=== PATIENT | female | born 1945 | race Caucasian/White ===

== ENCOUNTER 2018-04-13 11:58 | Day surgery (SDC) | payer MEDICARE, SELFPAY ==
[2018-04-07 15:42] LABS: Hemoglobin A1c 6.1 % (4.2-6.3)
[2018-04-07 15:48] LABS: Anion Gap 7 (5-15); BUN 23 mg/dL (7-18); BUN/Creat Ratio 17.7 RATIO (10-20); Calcium,Total 9.8 mg/dL (8.5-10.1); Chloride 108 mmol/L (98-107); EST Glomerular Filtration Rate 43 mL/min (>60); Est Glom Filt Rate - Afr Amer 52 mL/min (>60); Glucose 101 mg/dL (74-106); Potassium 4.3 mmol/L (3.5-5.1); Sodium Level 142 mmol/L (136-145); Thyroid Stim Hormone (TSH) 1.18 uIU/mL (0.358-3.74)
[2018-04-13] VITALS (7 sets, daily range): BP systolic 153–178; BP diastolic 66–87; PULSE 47–72; RESP 15–18; TEMP 36.1–36.3; O2SAT 92–98; BMI 47.3
[2018-04-13 13:01] LABS: Bedside Glucose 108 mg/dL (70-110)
[2018-04-13] MEDS: Clindamycin 900 MG/50 ML BAG 75 MG IV (13:13)
--- NOTE | 2018-04-13 13:24 | DCINST_ITS ---
Discharge Diet: Light diet - advance as tolerated Discharge Activity: Return to Normal Activity, May Drive - when you are no longer taking narcotic pain medications., May Shower - with the bandage in place 1-2 days after surgery. Lifting Restrictions: 20 pounds for 8 weeks. Additional Activity Instructions:: Climbing stairs is fine, walking is encouraged. Sitting in bed may be uncomfortable. Sitting up using your lateral muscles (sitting up sideways) is usually more comfortable. Do not drive, work heavy equipment of sign legal documents for 24 hours. If your hernia repair was an ingunial repair, you may have scrotal swelling, an ice pack and/or athletic support can provide more comfort. Pain medications may cause nausea, you should typically eat light foods as you take your pain medications. Pain medications may also cause constipation. If you have difficulty with this, discuss with your doctor. Call your doctor if your incision/area has: Continuous Slow Oozing, Sudden Increased Bleeding, Increased Pain/ Swelling, Increased Redness, Foul Smelling Discharge Call your doctor if you observe: Fever of 101 or Higher Suture Line Care: Avoid Pulling/Pushing, Avoid Pinching/Bending Additional Dressing/Incision Instructions:: Leave the operative bandage on for 2 -3 days. When you remove the bandage, leave the steri-strips on place until your follow up appointment or they fall off. Allergies/Adverse Reactions: Allergies adhesive Allergy (Verified 04/07/18 08:32) Rash amoxicillin [Amoxicillin] Allergy (Verified 04/07/18 08:32) Rash ampicillin Allergy (Verified 04/07/18 08:32) Rash cephalexin monohydrate [From Keflex] Allergy (Verified 04/07/18 08:32) Rash Penicillins Allergy (Verified 04/07/18 08:32) Rash Sulfa (Sulfonamide Antibiotics) Allergy (Verified 04/07/18 08:32) Rash Medications to take at Discharge Aspirin [Aspirin, Baby] 81 mg PO QHS 05/10/14 Atenolol [Tenormin (beta alex)] 25 mg PO DAILY 05/10/14 Atorvastatin Calcium [Lipitor] 40 mg PO QHS 05/10/14 Calcium (Elemental) [Caltrate-600] 600 mg PO DAILY@0800 05/10/14 Fenofibrate [Tricor] 145 mg PO DAILY 05/10/14 Fluticasone 0.05% [Flonase Nasal [place]] 2 spray NASAL DAILY PRN 05/10/14 Fosinopril Sodium 40 mg PO DAILY 05/10/14 Levothyroxine [Synthroid] 112 mcg PO DAILY 05/10/14 Magnesium Oxide [Mag-Ox 400] 800 mg PO BID 05/10/14 Multivitamins,Therapeutic [Multivitamin] 1 tab PO DAILY 05/10/14 Nitroglycerin [Nitrostat] 0.4 mg SUBLINGUAL Q5M PRN 05/10/14 Oxybutynin Chloride [Ditropan Xl] 15 mg PO DAILY 05/10/14 Azelastine HCl 137 mcg NS PRN PRN 08/10/17 Meclizine HCl [Antivert] 25 mg PO TID PRN PRN #20 tablet 10/22/17 Metformin HCl 500 mg PO DAILY 04/07/18 Nystatin 100,000 unit PO PRN PRN 04/07/18 Oxycodone HCl/Acetaminophen [Percocet 5/325] 1 - 2 tab PO Q4H PRN PRN 4 Days # 30 tab 04/13/18 The following prescriptions were given: Oxycodone HCl/Acetaminophen [Percocet 5/325] 1 - 2 tab PO Q4H PRN PRN 4 Days # 30 tab PRN Reason: Pain Primary Care Physician: Earlene Rosario MD [Primary Care Provider] - Please Follow Up With: Livan Lieberman MD - [phone] When: Plan to have a follow up appointment in 7 days. Call to schedule.
--- NOTE | 2018-04-13 13:25 | OP.PCM_ITS ---
Problem List (1) Incisional hernia, without obstruction or gangrene Status: Acute Report of Operation Date of Procedure: 04/13/18 Pre-Operative Diagnosis: k43.2 incisional hernia without obstruction or gangrene Post-Operative Diagnosis: Same Surgery/Procedure Performed:: Incisional hernia repair with mesh Type of Anesthesia:: General Anesthesiologist: Stevo Yanez Description of Procedure: Patient was brought into the operating room. Placed in the supine position. Under excellent general endotracheal intubation the abdomen was sterilely prepped and draped in the usual fashion. Curvilinear incision was made around the umbilicus immediately identified a rather large hernia. I dissected this off of the umbilical area in the right side of the umbilicus this was from a previous laparoscopic incision. Once I delineated 360? around the defect itself I was able to reduce the defect back into its preperitoneal space. I grasped the good fascia with Abby's and created a preperitoneal window circumferentially around the fascia. I make sure that I had a good 3 cm in all directions. Once this was completed and I inspected the area I saw no bowel injury I had excellent hemostasis. I fashioned a large ventral X hernia patch into the wound. I circumferentially tacked it to the fascia with #1 Nurolon's. I injected local. I had good hemostasis. The wound was brought together with deep dermal stitches of 3-0 Vicryl in a running 4-0 Monocryl. Steri- Strips are applied cotton was applied sterile dressings were applied and the patient tolerated the procedure well. - Admit VTE Documentation VTE Present on Admission: No VTE Mechan Device Prophylaxis: SCD's VTE Pharm Prophylaxis ordered?: No Reason prophylaxis not ordered:: Treatment Not Indicated
[2018-04-13] MEDS: Bupivacaine Mpf 0.5% 30 ML VIAL (14:10)
[2018-04-13 14:30] LABS: Bedside Glucose 96 mg/dL (70-110)
[2018-04-13] MEDS: oxyCODONE 5 MG Tablet 10 MG PO (16:15)
== END 2018-04-13 17:46 | disposition home or self-care (01) ==
LOC: SDC 11:59 → AC 12:00
PROVIDERS: Family Provider Internal Medicine; PCP Internal Medicine; Visit Provider Surgery
PROC: (CPT 49560; principal; 2018-04-13 13:20)
DX: K43.2 Incisional hernia without obstruction or gangrene (principal); E11.9 Type 2 diabetes mellitus without complications; Z79.899 Other long term (current) drug therapy; I45.10 Unspecified right bundle-branch block; I10 Essential (primary) hypertension; Z95.5 Presence of coronary angioplasty implant and graft; Z87.891 Personal history of nicotine dependence; Z86.711 Personal history of pulmonary embolism; E78.00 Pure hypercholesterolemia, unspecified; Z79.82 Long term (current) use of aspirin; E03.9 Hypothyroidism, unspecified; I25.10 Atherosclerotic heart disease of native coronary artery without angina pectoris; E66.9 Obesity, unspecified; Z68.42 Body mass index [BMI] 45.0-49.9, adult
CPT/HCPCS: 49560; 49568; 36415; 80048; 82962; 83036; 84443; J7120; C1781

== ENCOUNTER 2018-05-04 15:28 | Emergency (ER) | payer MEDICARE, SELFPAY ==
--- NOTE | 2018-05-04 15:28 | DT_ITS ---
This patient was seen during an EMR downtime May 04, 2018 - May 11, 2018. This patient may have a combination of paper and electronic documentation or all paper documentation. All documentation is viewable within the e-chart portion of [facility] for each patient visit.
--- NOTE | 2018-05-04 21:20 | CT_ITS ---
STUDY: CTA CHEST REASON FOR EXAM: Female, 73 years old. Dyspnea. Recent surgery. RADIATION DOSAGE (If Supplied By Facility): CTDIvol = ( 16.61 ) mGy, DLP = ( 775.68 ) mGycm TECHNIQUE: The examination was performed with the intravenous administration of 100ml ml of Isovue 370 contrast material. Post-processing of the angiographic images was performed, with multiplanar reformation and 3D reconstruction. Individualized dose optimization techniques were used for this CT. COMPARISON: None. FINDINGS: Bilateral moderate pulmonary emboli burden is noted within the bilateral upper and lower lobe second order branch vessels. No evidence of saddle component. No evidence of right heart strain. Normal thoracic aorta and visualized great vessels. There is no demonstrated aortic dissection. Normal heart and pericardium. Normal mediastinum. Normal hilar regions. Normal visualized trachea and bronchi. The lungs are well expanded. Normal pulmonary parenchyma. Normal pleura. Normal chest wall structures. There are degenerative changes of thoracic spine. Normal visualized upper abdomen. CT/CTA Chest W/WO Contrast IMPRESSION: Moderate bilateral pulmonary emboli burden in the upper and lower lobe second order branch vessels. No evidence of right heart strain. No evidence of saddle emboli. Apparently, there has been a computer malfunction for several days at this institution. This study was performed on May 04. There are findings the results as above. Patient has been taking care of appropriately. N.B. : The above information has been verbally conveyed by Da Yeh DO to Dr Mcconnell, Covering Physician, on 05/09/2018 18:49:04 (ET). Electronically Signed: Da Yeh DO at 18:49 EDT Tel , Service support , N.B. : The above information has been verbally conveyed by Da Yeh DO to Dr Mcconnell, Covering Physician, on 05/09/2018 18:49:04 (ET).
[2018-05-07 12:15] LABS: BUN 20 mg/dL (7-18); BUN/Creat Ratio 16.8 RATIO (10-20); Chloride 108 mmol/L (98-107); Creatinine, Serum 1.19 mg/dL (0.55-1.02); EST Glomerular Filtration Rate 48 mL/min (>60); Est Glom Filt Rate - Afr Amer 58 mL/min (>60); Glucose 97 mg/dL (74-106); Potassium 4.1 mmol/L (3.5-5.1); Sodium Level 144 mmol/L (136-145)
[2018-05-07 12:16] LABS: Anion Gap 9 (5-15)
[2018-05-07 17:32] LABS: International Normalized Ratio 1.2; Partial Thromboplast Time 30.6 Seconds (24.1-36.2); Prothrombin Time (Protime)PT. 14.7 SECONDS (11.7-14.9)
[2018-05-08 10:54] LABS: Hematocrit 42.1 % (37-47); Hemoglobin 13.2 g/dl (12.0-15.0); Mean Corp Hgb Conc 31.4 g/gl (32-36); Mean Corpuscular Hgb 27.6 pg (27.0-32.0); Mean Corpuscular Volume 88.1 fL (81-99); Mean Platelet Vol. 10.9 fl (6.2-12.0); Neutrophil % 64.2 % (47-70); POSITIVE COUNT NO; POSITIVE DIFFERENTIAL NO; POSITIVE MORPHOLOGY NO; Platelet Count 323 K/mm3 (150-450); RBC Distribution Width CV 13.5 % (11.6-14.6); RBC Distribution Width SD 42.8 fl (35.1-43.9); Red Blood Count 4.78 M/mm3 (4.2-5.4); White Blood Count 10.3 K/mm3 (4.4-11.0)
[2018-05-08 10:55] LABS: Absolute Lymphocyte Count 2.57 X10^3/ul (0.83-4.51); Absolute Neutrophil Count 6.6 X10^3/uL (2.0-7.7); Basophil# 0.05 X10^3/uL; Basophil% 0.5 % (0-1); Eosinophil# 0.25 X10^3/uL; Eosinophils% 2.4 % (0-5); Lymphocyte # 2.57 X10^3/ul (4.0); Monocyte# 0.77 X10^3/uL; Monocyte% 7.5 % (0-10); Neutrophil # 6.62 X10^3/uL (2.7-7.7)
== END 2018-05-04 23:05 | disposition home or self-care (01) ==
LOC: ED 05-06 14:38
PROVIDERS: Emergency Provider Emergency Medicine; Family Provider Internal Medicine; PCP Internal Medicine
DX: I26.99 Other pulmonary embolism without acute cor pulmonale (principal); I25.10 Atherosclerotic heart disease of native coronary artery without angina pectoris; I10 Essential (primary) hypertension; E11.9 Type 2 diabetes mellitus without complications; E78.00 Pure hypercholesterolemia, unspecified; E66.9 Obesity, unspecified; E03.9 Hypothyroidism, unspecified; Z86.711 Personal history of pulmonary embolism; Z79.84 Long term (current) use of oral hypoglycemic drugs; Z79.899 Other long term (current) drug therapy
CPT/HCPCS: 36415; 71275; 80048; 85025; 85610; 85730; 96360; 96372; 99284; J7030; Q9967; A4216

== ENCOUNTER 2018-09-14 07:49 | Day surgery (SDC) | payer MEDICARE, OTHER, SELFPAY ==
[2018-09-14 08:16] LABS: Prothrombin Time Fingerstick 14.5 SEC (11.9-14.4)
[2018-09-14 08:17] VITALS: BP 138/62; PULSE 56; RESP 18; TEMP 36.7; O2SAT 99; BMI 47.9
[2018-09-14 08:26] LABS: Bedside Glucose 105 mg/dL (70-110)
--- NOTE | 2018-09-14 09:49 | PCM.IMDPSTOP ---
Immediate Post-Op Note Date of Procedure: 09/14/18 Primary Surgeon/Physician: Robert Marte aviation medicine specialist: none Pre-Operative Diagnosis: A1 stenosing tenosynovitis RMF Post-Operative Diagnosis: same Surgery/Procedure Performed:: Release A1 kameron RMF Description of Surgical Findings:: see op note Estimated Blood Loss: minimal Specimen's removed: none Type of Anesthesia:: Block,Karthikeyan ASA Class: ASA3 Severe Disease - Admit VTE Documentation VTE Present on Admission: No VTE Mechan Device Prophylaxis: SCD's VTE Pharm Prophylaxis ordered?: No Reason prophylaxis not ordered:: Treatment Not Indicated
[2018-09-14 09:55] VITALS: BP 131/66; BP 138/62; PULSE 58; RESP 16; TEMP 36.3; O2SAT 94
[2018-09-14 10:00] VITALS: BP 124/67; BP 138/62; PULSE 55; RESP 16; O2SAT 96
--- NOTE | 2018-09-14 10:00 | OP.PCM_ITS ---
Operative Report Date of Procedure: 09/14/18 OPERATION: Release A1 kameron right middle finger Pre-op Dx: RMF triggering Post-op Dx: same Surgeon: Dr. Marte Anesthesia: [place] block Anesthesiologist: Dr Yanez EBL: Min Specimen: none Complications: none PROCEDURE: With appropriate informed consent and the right middle finger marked, the patient was taken to OR 4. Karthikeyan block anesthesia was administered per Dr. Yanez. The right upper extremity was prepared and draped sterilely. Subsequently, a 15 blade scalpel was used to make a transverse incision over the A 1 kameron of the RMF. Careful scissor dissection was taken down through the palmar fascia to the annular kameron. Retractors were placed radial and ulnar to protect neurovascular structures. The A1 kameron was divided umder direct visualization using a scalpel and scissors. I was then able to take the finger through a full ROM without triggering or locking. The wound was then copiously irrigated and closed with 3 interrupted sutures 0f 4-0 nylon. A sterile dressing was applied and the tourniquet was released. Excellent blood flow returned to the RUE and the patient was taken to PACU in stable and satisfactory condition.
[2018-09-14 10:05] VITALS: BP 125/71; BP 138/62; PULSE 54; RESP 16; O2SAT 98
[2018-09-14 10:10] VITALS: BP 126/63; BP 138/62; PULSE 56; RESP 16; TEMP 36.4; O2SAT 96
[2018-09-14 10:25] VITALS: BP 138/62
== END 2018-09-14 11:12 | disposition home or self-care (01) ==
LOC: SDC 07:49 → AC 07:51
PROVIDERS: Family Provider Internal Medicine; PCP Internal Medicine; Referring Provider Orthopaedic Surgery; Visit Provider Orthopaedic Surgery
PROC: (CPT 26055; principal; 2018-09-14 09:20)
DX: M65.331 Trigger finger, right middle finger (principal); E11.9 Type 2 diabetes mellitus without complications; K21.9 Gastro-esophageal reflux disease without esophagitis; Z86.711 Personal history of pulmonary embolism; E78.00 Pure hypercholesterolemia, unspecified; Z79.899 Other long term (current) drug therapy; Z79.01 Long term (current) use of 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s; Z79.82 Long term (current) use of aspirin; Z79.84 Long term (current) use of oral hypoglycemic drugs; I10 Essential (primary) hypertension; Z87.891 Personal history of nicotine dependence; I25.10 Atherosclerotic heart disease of native coronary artery without angina pectoris; Z95.5 Presence of coronary angioplasty implant and graft; Z86.718 Personal history of other venous thrombosis and embolism; M19.90 Unspecified osteoarthritis, unspecified site; E66.9 Obesity, unspecified; Z68.42 Body mass index [BMI] 45.0-49.9, adult
CPT/HCPCS: 01810; 26055; 36416; 82962; 85610; J7120; A4216

== ENCOUNTER → 2018-10-02 10:43 | Outpatient (CLI) | payer MEDICARE, OTHER, SELFPAY ==
[2018-10-02 13:37] LABS: International Normalized Ratio 1.9; Prothrombin Time (Protime)PT. 21.6 SECONDS (11.7-14.9)
== END ==
PROVIDERS: Family Provider Internal Medicine; PCP Internal Medicine; Referring Provider Internal Medicine; Visit Provider Internal Medicine
DX: I26.99 Other pulmonary embolism without acute cor pulmonale (principal); Z79.01 Long term (current) use of 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s
CPT/HCPCS: 85610

== ENCOUNTER → 2019-10-15 10:49 | Outpatient (CLI) | payer MEDICARE, OTHER, SELFPAY ==
[2019-09-14 14:56] VITALS: BMI 46.7
--- NOTE | 2019-10-15 10:52 | ECHOD_ITS ---
Reason For Study: CAD/ASHD Procedure This was a 2D Doppler, Color Flow transthoracic echocardiogram. The study was technically difficult. Due to body habitus. Exam performed in department. Left Ventricle Normal size and thickness. The estimated ejection fraction is 65 %. Stage 1 diastolic dysfunction. No regional wall motion abnormalities noted. Right Ventricle Normal size and thickness. Normal systolic function. Atria Normal left atrium. Normal right atrium. Normal atrial septum. Mitral Valve The mitral valve is structurally normal. No prolapse or stenosis seen. Tricuspid Valve Normal tricuspid valve. Trivial tricuspid valve insufficiency. Right ventricular systolic pressure estimated to be 27 mmHg. Aortic Valve Normal aortic valve. Trisinus/trileaflet aortic valve. Pulmonic Valve The pulmonic valve is not well visualized. Great Vessels Normal aortic root. Normal arch. Normal inferior vena cava. Inferior vena cava collapse with sniff. Pericardium/Pleural No pericardial effusion. MMode/2D Measurements & Calculations LVIDd: 4.7 cm IVSd: 1.2 cm Ao root diam: 2.6 cm LVIDs: 3.4 cm LVPWd: 1.2 cm RVDd: 3.1 cm FS: 28.6 % LAV(MOD-bp): 58.1 ml LA A4 area: 20.0 cm2 LA dimension(2D): 4.3 cm LAV(MOD-bp) Indexed: 26.1 ml/m2 LAV(MOD-sp2): 58.4 ml LAV(MOD-sp4): 58.4 ml RA A4 area: 17.7 cm2 Time Measurements MV dec time: 0.20 sec Doppler Measurements & Calculations MV E max simone: 93.5 cm/sec Lat Peak E' Simone: 8.6 cm/sec Med Peak E' Simone: 8.5 cm/sec MV A max simone: 102.5 cm/sec E/E' lat: 10.9 E/E' med: 11.0 MV E/A: 0.91 Ao V2 max: 143.0 cm/sec LV V1 max: 107.1 cm/sec PA V2 max: 94.2 cm/sec Ao max P.2 mmHg LV V1 max P.6 mmHg TR max simone: 234.0 cm/sec TR max P.9 mmHg Interpretation Summary The estimated ejection fraction is 65 %. Stage 1 diastolic dysfunction. Trivial tricuspid valve insufficiency. Right ventricular systolic pressure estimated to be 27 mmHg. Compared to echo report dated 08/11/2017, no appreciable changes noted. Ordering Physician: Livan Jha Referring Physician: Earlene Rosario Performed By: Ching Gallego RDCS, RVT
== END ==
PROVIDERS: Family Provider Internal Medicine; PCP Internal Medicine; Referring Provider Internal Medicine Cardiovascular Disease; Visit Provider Internal Medicine Cardiovascular Disease
DX: I26.99 Other pulmonary embolism without acute cor pulmonale (principal); I25.10 Atherosclerotic heart disease of native coronary artery without angina pectoris; Z95.5 Presence of coronary angioplasty implant and graft; E78.2 Mixed hyperlipidemia; I10 Essential (primary) hypertension
CPT/HCPCS: 93306

== ENCOUNTER → 2019-10-18 09:32 | Outpatient (CLI) | payer MEDICARE, OTHER, SELFPAY ==
[2019-09-14 14:56] VITALS: BMI 46.7
[2019-10-06 09:23] LABS: AST(SGOT) 33 U/L (15-37); Alanine Aminotransfer ALT/SGPT 30 U/L (13-56); Albumin, Serum 3.8 g/dL (3.2-5.0); Alkaline Phosphatase 59 U/L (45-117); Bilirubin, Direct 0.14 mg/dL (0.00-0.30); Cholesterol 198 mg/dL (200); Globulin 3.7 g/dL (2.2-4.2); High Density Lipoprotein 57 mg/dL; Protein, Total 7.5 g/dL (6.4-8.2); Triglycerides 141 mg/dL; Very Low Density Lipoprotein 28 mg/dL (5-40)
--- NOTE | 2019-10-18 09:33 | STEWCON_ITS ---
Reason For Study: CAD Stress Results Protocol: Modified Compa Protocol Maximum Predicted HR: 148 bpm Target HR: 126 bpm % Maximum Predicted HR: 87 % DurationHeart Rate Stage (mm:ss) (bpm) BP Comment Baseline 57 130/72No Chest Pain; Diluted Definity 4 ML Given Modified Compa Protocol Stage 0 3:00 90 140/64No Chest Pain Modified Compa Protocol Stage 1/2 3:00 99 158/70No Chest Pain; Mild Dyspnea Modified Compa Protocol Stage 1 3:00 112 172/74No Chest Pain; Mild Dyspnea Modified Compa Protocol Stage 2 1:01 129 / No Chest Pain; Mild to Moderate Dyspnea Recovery 59 138/70No Chest Pain; No Dyspnea Stress Duration: 10:01 mm:ss Maximum Stress HR: 129 bpm METS: 7 Baseline Echocardiogram Findings The estimated ejection fraction is 65 %. Stress Echo Wall motion Data Resting WM Intermediate WM Stress WM Resting Wall Motion Wall Motion Stress No regional wall motion Lateral-Basal: Mildly abnormalities noted. hypokinetic. EKG Data The baseline ECG displays normal sinus rhythm. The stress ECG displays diffuse abnormal ST segments. No clinical angina was noted. Interpretation Summary The estimated ejection fraction is 65 %. Lateral-Basal: Mildly hypokinetic Abnormal, adequate, modified Compa treadmill echocardiogram. Positive for ischemia by EKG and echocardiographic criteria. The patient developed [address] segment depression at 6 minutes 50 seconds into exercise which progressed to 2 [address] segment depression at peak exercise. These changes persisted until 5 minutes 50 seconds into recovery. In addition she developed subtle inferolateral hypokinesis seen in one view. No anginal symptoms noted. Rare PACs noted. Appropriate blood pressure response to exercise. Average exercise capacity for age. Patient will be referred for cardiac catheterization. The study was technically difficult. Contrast injection was performed. Ordering Physician: Livan Jha Referring Physician: Earlene Rosario Performed By: Maricarmen Banerjee, RDCS, RVT
--- NOTE | 2019-10-18 10:50 | RAD_ITS ---
STUDY: X-RAY CHEST REASON FOR EXAM: Female, 74 years old. Abnormal stress test. Shortness of breath during stress test. TECHNIQUE: PA and lateral views of the chest. COMPARISON: Comparison is made with prior examination of August 10, 2017. FINDINGS: Scattered calcified granulomas. No acute abnormality is seen. There is no demonstrated pleural abnormality. There is mild cardiac enlargement. Normal mediastinum and chen. Normal visualized pulmonary arteries. There is atherosclerotic calcification of the aortic arch with tortuosity. There are diffuse degenerative changes of the visualized thoracic spine. Normal visualized ribs, clavicles, and shoulders. There is no demonstrated abnormality of the visualized soft tissue structures of the upper abdomen. RAD/Chest PA and Lateral IMPRESSION: Mild cardiomegaly. The lungs are clear. Electronically Signed: Paresh Donovan, at 11:12 EST , Service support ,
[2019-10-18 11:40] LABS: Hematocrit 41.2 % (37-47); Hemoglobin 12.9 g/dL (12.0-15.0); Mean Corp Hgb Conc 31.3 g/dL (32-36); Mean Corpuscular Hgb 28.1 pg (27.0-32.0); Mean Corpuscular Volume 89.8 fL (81-99); Mean Platelet Vol. 11.2 fl (6.2-12.0); Platelet Count 269 K/mm3 (150-450); RBC Distribution Width CV 13.6 % (11.6-14.6); RBC Distribution Width SD 44.2 fl (35.1-43.9); Red Blood Count 4.59 M/mm3 (4.2-5.4); White Blood Count 8.5 K/mm3 (4.4-11.0)
[2019-10-18 11:44] LABS: International Normalized Ratio 1.7; Prothrombin Time (Protime)PT. 20.1 SECONDS (11.7-14.9)
[2019-10-18 11:45] LABS: Partial Thromboplast Time 35.2 Seconds (24.1-36.2)
[2019-10-18 12:02] LABS: Anion Gap 8 (5-15); BUN 22 mg/dL (7-18); BUN/Creat Ratio 19.1 RATIO (10-20); Calcium,Total 9.6 mg/dL (8.5-10.1); Chloride 107 mmol/L (98-107); Creatinine, Serum 1.15 mg/dL (0.55-1.02); EST Glomerular Filtration Rate 49 mL/min (>60); Est Glom Filt Rate - Afr Amer 60 mL/min (>60); Glucose 98 mg/dL (74-106); Potassium 4.6 mmol/L (3.5-5.1); Sodium Level 139 mmol/L (136-145)
== END ==
PROVIDERS: Family Provider Internal Medicine; PCP Internal Medicine; Referring Provider Internal Medicine Cardiovascular Disease; Visit Provider Internal Medicine Cardiovascular Disease
DX: R94.39 Abnormal result of other cardiovascular function study (principal); Z79.01 Long term (current) use of 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s; E78.00 Pure hypercholesterolemia, unspecified; I25.10 Atherosclerotic heart disease of native coronary artery without angina pectoris
CPT/HCPCS: 36415; 71046; 80048; 80061; 80076; 85027; 85610; 85730; 93017; 93350; Q9957; A4216; C8928

== ENCOUNTER 2019-10-25 08:00 | Day surgery (SDC) | payer MEDICARE, OTHER, SELFPAY ==
--- NOTE | 2019-09-14 03:21 | HP_ITS ---
HPI HPI History of Present Illness Surgical H&P: Yes Details: Mrs. Jovel is a very pleasant 74-year-old female, previous patient of Dr. Gonzalez, with a history of hypertension, pulmonary embolism in August 2017, baseline right bundle branch block, coronary artery disease status post angioplasty and stenting on 10/06/2009, hypertension and hyperlipidemia as well as type 2 diabetes and obesity. Patient underwent successful angioplasty and stenting of the LAD at [facility] on 10/06/2009 receiving a 2.75 x 18 Promus stent as well as a 2.5X 12 Promus stent in the midportion of the LAD by Dr. Knight. At that time her left circumflex had an eccentric 50 to 70% stenosis in its mid segment and his RCA was dominant with no significant stenosis. No additional stenting was performed at that time. On 08/11/2017 she underwent a 2D echo with Doppler which showed normal LV size with an EF of 60% and an RVSP of 36 mmHg. Patient was referred for cardiac maintenance. Patient does not recall any symptoms prior to her catheterization about 10 years ago, but has had a history of pulmonary emboli first in 2015, placed on Coumadin, then removed from Coumadin, had another pulmonary embolism in 2016 and is now been on Coumadin ever since. She denies any previous atrial fibrillation. From a cardiac standpoint she denies any chest pain, angina, shortness of breath or dyspnea on exertion. She is taking and tolerating her medicines well. She is no longer on Plavix. In our office today her blood pressure is 156/70 and pulse is 64 and regular. Her physical exam demonstrates morbid obesity, regular rate and rhythm, normal S1/S2, no S3 or S4. Lipids are pending. EKG dated 05/04/2018 shows normal sinus rhythm, incomplete right bundle branch block, no evidence of previous myocardial infarction. Repeat EKG 09/14/2019 shows normal sinus rhythm, right bundle branch block, no acute changes, no previous myocardial infarction noted. 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 Required: No Accompanied by: Self Allergies adhesive Allergy (Verified 09/14/19 14:56) Rash amoxicillin [Amoxicillin] Allergy (Verified 09/14/19 14:56) Rash ampicillin Allergy (Verified 09/14/19 14:56) Rash cephalexin monohydrate [From Keflex] Allergy (Verified 09/14/19 14:56) Rash Penicillins Allergy (Verified 09/14/19 14:56) Rash Sulfa (Sulfonamide Antibiotics) Allergy (Verified 09/14/19 14:56) Rash Medications Aspirin [Aspirin, Baby] 81 mg PO QHS 05/10/14 [History Confirmed 09/14/19] Atenolol [Tenormin (beta alex)] 25 mg PO DAILY 05/10/14 [History Confirmed 09/14/19] Atorvastatin Calcium [Lipitor] 40 mg PO QHS 05/10/14 [History Confirmed 09/14/19] Fluticasone 0.05% [Flonase Nasal [place]] 2 spray NASAL DAILY PRN 05/10/14 [History Confirmed 09/14/19] Fosinopril Sodium 40 mg PO DAILY 05/10/14 [History Confirmed 09/14/19] Levothyroxine [Synthroid] 112 mcg PO DAILY 05/10/14 [History Confirmed 09/14/19] Magnesium Oxide [Mag-Ox 400] 400 mg PO BID 05/10/14 [History Confirmed 09/14/19] Multivitamins,Therapeutic [Multivitamin] 1 tab PO DAILY 05/10/14 [History Confirmed 09/14/19] Nitroglycerin (INPATIENT USE) [Nitrostat] 0.4 mg SUBLINGUAL Q5M PRN 05/10/14 [History Confirmed 09/14/19] Oxybutynin Chloride [Ditropan Xl] 15 mg PO DAILY 05/10/14 [History Confirmed 09/14/19] Azelastine HCl 137 mcg NS PRN PRN 08/10/17 [History Confirmed 09/14/19] Meclizine HCl [Antivert] 25 mg PO TID PRN PRN #20 tab 10/22/17 [Rx Confirmed 09/14/19] Metformin HCl 500 mg PO DAILY 04/07/18 [History Confirmed 09/14/19] Warfarin [Coumadin ([facility])] 5 mg PO DAILY 09/08/18 [History Confirmed 09/14/19] fenofibrate 160 mg tablet 160 mg PO DAILY 09/14/19 [History Confirmed 09/14/19] hydrocortisone 2.5 % topical cream 1 applic TOPICAL BID 09/14/19 [History Confirmed 09/14/19] [facility] Medical History Pulmonary embolism (Acute ~08/2017) RBBB (right bundle branch block) (Acute) Hypothyroidism (Chronic) GERD (gastroesophageal reflux disease) (Chronic) Presence 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 (Chronic ~10/06/09) Atherosclerotic heart disease of zuni coronary artery without angina pectoris (Chronic) Mixed hyperlipidemia (Chronic) Essential hypertension (Chronic) Obesity (Chronic) DM2 (diabetes mellitus, type 2) (Chronic) History of gastric ulcer (Acute) History of pulmonary embolism (Acute ~08/2017) Incisional hernia, without obstruction or gangrene (Acute) Surgical History History of appendectomy (Resolved) Presence of coronary angioplasty implant and graft (Chronic ~10/06/09) H/O hernia repair (Resolved) History of heart artery stent (Resolved) S/P cardiac catheterization (Resolved) S/P carpal tunnel release (Resolved) S/P colonoscopy (Resolved ~05/2013) S/P hysterectomy (Resolved) S/P tonsillectomy (Resolved) S/P trigger finger release (Resolved) Family History Father CAD (coronary artery disease) Mother CVA (cerebral vascular accident) Hypertension Social History (Updated 09/14/19 @ 15:22 by Livan Jha MD) Smoking Status: Former smoker how long ago did patient quit smokin yrs alcohol intake: current details: rare substance use type: does not use caffeine: No ROS Const Const: Negative for fatigue, weakness, frequent falls, excessive sweating, weight gain or weight loss Eyes Eyes: Negative for transient loss of vision, blurry vision or change in vision ENT ENT: Negative for dizziness or balance problems Cardio Chest Pain: No Palpitations: No Edema: None Muscle aches with walking: None Resp Respiratory: Negative for SOB with activity or SOB at rest GI GI: Negative vomiting or vomiting blood/hematemesis : Negative for hematuria Musc Musc: Negative for muscle aches/ myalgia, muscle weakness, joint pain or balance problems Skin Skin: Negative non-healing lesions or rash Neuro Neuro: Negative for dizziness, lightheadedness, orthostatic symptoms, frequent falls, weakness or blurry vision Mario Alberto Hematologic/Lymphatic: Negative for easy bleeding Endo Endo: Negative for fatigue or excessive sweating Psych Psych: Negative for anxiety or depression Allergy Allergy/Immunology: Negative for hives, Negative for rash Cardiology Exam Const Appearance: cooperative, healthy appearing and no acute distress Nutritional Appearance: well nourished Orientation: alert, oriented x3 and oriented to person Head Head: normal to inspection, normocephalic and atraumatic Nose: external nose normal Face and Sinus: face symmetric Mouth: oral mucosae normal Eyes General: appearance normal, both eyes and all related structures Eyelids: eyelids normal Conjunctivae: conjunctivae normal Pupils: PERRL and normal by confrontation EOM: EOM intact bilaterally Neck Neck: normal visual inspection and full ROM Carotids: normal carotid upstroke Chest Chest inspection: normal inspection of the chest Auscultation: Bilateral: Clear to Auscultation Cardio Palpation: normal PMI Rate: regular rate Rhythm: regular rhythm Heart sounds: S1 normal and S2 normal GI GI: normal to inspection, no hepatosplenomegaly and bowel sounds present Neuro General: alert, awake, oriented x3, CN's II-XI intact bilaterally and moves all extremities Skin Skin: no rashes or lesions noted Extremities Pulses: Normal: Right Femoral Pulse, Left Femoral Pulse, Right Dorsalis Pedis Pulse, Left Dorsalis Pedis Pulse, Right Posterior Tibial Pulse, Left Posterior Tibial Pulse, Right Radial Pulse, Left Radial Pulse Lower Extremity Edema: None: Bilateral Psych Psychological: normal affect Assessment & Plan 1. Atherosclerotic heart disease of zuni coronary artery without angina pectoris I25.10 Plan 1. Coronary artery disease: Patient had no overt symptoms prior to her angioplasty in 2008, and denies any chest pain or shortness of breath at this time. She has a remaining 70% left circumflex stenosis which was not addressed at that time. Given her lack of symptoms prior to her angioplasty, diabetes, and the fact that her angioplasty was 10 years ago, I recommend that she undergo a repeat modified Compa treadmill echocardiogram to evaluate for either anterior or inferior lateral ischemia. If this is grossly abnormal for ischemia, she may require repeat catheterization with bridging with Lovenox given her history of pulmonary embolism x2. If it is negative for ischemia, will continue baby aspirin, atenolol, fosinopril. In addition we will obtain a 2D echo with Doppler to monitor her LV function and more importantly her pulmonary pressures given her history of pulmonary emboli. Orders Orders: 12 Lead EKG performed by [facility] Today Echo Complete Today Stress Test Echo w/o Contrast Today 2. Mixed hyperlipidemia E78.2 Plan 2. Hyperlipidemia: We will obtain a fasting lipid profile, and aggressively control her LDL cholesterol. Given her risk factors her LDL should be less than 70. Continue atorvastatin and fenofibrate. Orders Orders: Echo Complete Today Stress Test Echo w/o Contrast Today 3. Pulmonary embolism I26.99 Plan 3. Pulmonary embolism: The patient has had 2 pulmonary emboli in the past and requires Coumadin therapy going forward. Continue Coumadin therapy. Should the patient require catheterization she will require bridging with subcu Lovenox full dose. 4. Return office in 6 months. Orders Orders: Echo Complete Today Stress Test Echo w/o Contrast Today Plan Detail Other Orders Orders: 12 Lead EKG performed by BMS Today Z95.5 Lipid Profile 1 Week E78.00 Liver Profile 1 Week E78.00 Echo Complete Today I10, Z95.5 Stress Test Echo w/o Contrast Today Z95.5 Follow Up +6M (Abhijeet) Coding Level of Care Code Off vis,new,level 4 Diagnoses Atherosclerotic heart disease of zuni coronary artery without angina pectoris I25.10 Mixed hyperlipidemia E78.2 Pulmonary embolism I26.99 Coding Level of Care Code Off vis,new,level 4 Diagnoses Atherosclerotic heart disease of zuni coronary artery without angina pectoris I25.10 Mixed hyperlipidemia E78.2 Pulmonary embolism I26.99 Supplemental Info Supplemental Information Labs LDL Cholesterol 109 mg/dL (0-130) 06/04/16 HDL Cholesterol 48 mg/dL (40-) 06/04/16 Triglycerides 115 mg/dL (-199) 06/04/16 VLDL Cholesterol 23 mg/dL (5-40) 06/04/16 Diagnostics Electrocardiogram 10/21/17 Chest X-Ray 08/10/17 09/14/19 9022 <Electronically signed by Livan Jha MD> Date _ Livan Jha MD
[2019-09-14 14:56] VITALS: BMI 46.7
[2019-10-19 11:43] VITALS: BMI 46.7
[2019-10-25] VITALS (19 sets, daily range): BP systolic 90–161; BP diastolic 43–90; PULSE 39–60; RESP 11–20; TEMP 36.6–37; O2SAT 96–100; BMI 47.2; BMI 46.7
--- NOTE | 2019-10-25 07:39 | PCM.HP.BLA ---
History and Physical Date of Admission: 10/25/19 History of Present Illness Mrs. Jovel is a very pleasant 74-year-old female, previous patient of Dr. Gonzalez, with a history of hypertension, pulmonary embolism in August 2017, baseline right bundle branch block, coronary artery disease status post angioplasty and stenting on 10/06/2009, hypertension, and hyperlipidemia as well as type 2 diabetes and obesity. Patient underwent successful angioplasty and stenting of the LAD at [facility] on 10/06/2009 receiving a 2.75 x 18 Promus stent as well as a 2.5X 12 Promus stent in the midportion of the LAD by Dr. Knight. At that time her left circumflex had an eccentric 50 to 70% stenosis in its mid segment and his RCA was dominant with no significant stenosis. No additional stenting was performed at that time. On 08/11/2017, she underwent a 2D echo with Doppler which showed normal LV size with an EF of 60% and an RVSP of 36 mmHg. Patient was referred for cardiac maintenance. Patient does not recall any symptoms prior to her catheterization about 10 years ago, but has had a history of pulmonary emboli first in 2015, placed on Coumadin, then removed from Coumadin, had another pulmonary embolism in 2016 and is now been on Coumadin ever since. She denies any previous atrial fibrillation. On 10/18/2019, she underwent a stress echocardiogram for coronary artery disease surveillance. This was considered to be an abnormal, adequate, modified Compa treadmill echocardiogram positive for ischemia by ECG and echocardiographic criteria. Her estimate ejection fraction was noted to be 65%. She denies chest, arm, jaw, or neck discomfort. Her exercise tolerance is stable. She denies symptoms of CHF, palpitations, lightheadedness, dizziness, near syncope, or syncopal episodes. She denies edema or claudication issues. She denies orthopnea, PND, fever, chills, blood in urine, blood in stool, myalgia, or unexplainable fatigue. 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 Accompanied by: Self Allergies adhesive Allergy (Verified 09/14/19 14:56) Rash amoxicillin [Amoxicillin] Allergy (Verified 09/14/19 14:56) Rash ampicillin Allergy (Verified 09/14/19 14:56) Rash cephalexin monohydrate [From Keflex] Allergy (Verified 09/14/19 14:56) Rash Penicillins Allergy (Verified 09/14/19 14:56) Rash Sulfa (Sulfonamide Antibiotics) Allergy (Verified 09/14/19 14:56) Rash Medications: See EMR for further details Aspirin [Aspirin, Baby] 81 mg PO QHS 05/10/14 [History Confirmed 09/14/19] Atenolol [Tenormin (beta alex)] 25 mg PO DAILY 05/10/14 [History Confirmed 09/14/19] Atorvastatin Calcium [Lipitor] 40 mg PO QHS 05/10/14 [History Confirmed 09/14/19] Fluticasone 0.05% [Flonase Nasal [place]] 2 spray NASAL DAILY PRN 05/10/14 [History Confirmed 09/14/19] Fosinopril Sodium 40 mg PO DAILY 05/10/14 [History Confirmed 09/14/19] Levothyroxine [Synthroid] 112 mcg PO DAILY 05/10/14 [History Confirmed 09/14/19] Magnesium Oxide [Mag-Ox 400] 400 mg PO BID 05/10/14 [History Confirmed 09/14/19] Multivitamins,Therapeutic [Multivitamin] 1 tab PO DAILY 05/10/14 [History Confirmed 09/14/19] Nitroglycerin (INPATIENT USE) [Nitrostat] 0.4 mg SUBLINGUAL Q5M PRN 05/10/14 [History Confirmed 09/14/19] Oxybutynin Chloride [Ditropan Xl] 15 mg PO DAILY 05/10/14 [History Confirmed 09/14/19] Azelastine HCl 137 mcg NS PRN PRN 08/10/17 [History Confirmed 09/14/19] Meclizine HCl [Antivert] 25 mg PO TID PRN PRN #20 tab 10/22/17 [Rx Confirmed 09/14/19] Metformin HCl 500 mg PO DAILY 04/07/18 [History Confirmed 09/14/19] Warfarin [Coumadin ([facility]KC)] 5 mg PO DAILY 09/08/18 [History Confirmed 09/14/19] fenofibrate 160 mg tablet 160 mg PO DAILY 09/14/19 [History Confirmed 09/14/19] hydrocortisone 2.5 % topical cream 1 applic TOPICAL BID 09/14/19 [History Confirmed 09/14/19] [facility] Medical History Pulmonary embolism (Acute ~08/2017) RBBB (right bundle branch block) (Acute) Hypothyroidism (Chronic) GERD (gastroesophageal reflux disease) (Chronic) Presence 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 (Chronic ~10/06/09) Atherosclerotic heart disease of [place] coronary artery without angina pectoris (Chronic) Mixed hyperlipidemia (Chronic) Essential hypertension (Chronic) Obesity (Chronic) DM2 (diabetes mellitus, type 2) (Chronic) History of gastric ulcer (Acute) History of pulmonary embolism (Acute ~08/2017) Incisional hernia, without obstruction or gangrene (Acute) Surgical History History of appendectomy (Resolved) Presence of coronary angioplasty implant and graft (Chronic ~10/06/09) H/O hernia repair (Resolved) History of heart artery stent (Resolved) S/P cardiac catheterization (Resolved) S/P carpal tunnel release (Resolved) S/P colonoscopy (Resolved ~05/2013) S/P hysterectomy (Resolved) S/P tonsillectomy (Resolved) S/P trigger finger release (Resolved) Family History Father CAD (coronary artery disease) Mother CVA (cerebral vascular accident) Hypertension Social History (Updated 09/14/19 @ 15:22 by Livan Jha MD) Smoking Status: Former smoker how long ago did patient quit smokin yrs alcohol intake: current details: rare substance use type: does not use caffeine: No ROS Const Const: Negative for fatigue, weakness, frequent falls, excessive sweating, weight gain or weight loss Eyes Eyes: Negative for transient loss of vision, blurry vision or change in vision ENT ENT: Negative for dizziness or balance problems Cardio Chest Pain: No Palpitations: No Edema: None Muscle aches with walking: None Resp Respiratory: Negative for SOB with activity or SOB at rest GI GI: Negative vomiting or vomiting blood/hematemesis : Negative for hematuria Musc Musc: Negative for muscle aches/ myalgia, muscle weakness, joint pain or balance problems Skin Skin: Negative non-healing lesions or rash Neuro Neuro: Negative for dizziness, lightheadedness, orthostatic symptoms, frequent falls, weakness or blurry vision Mario Alberto Hematologic/Lymphatic: Negative for easy bleeding Endo Endo: Negative for fatigue or excessive sweating Psych Psych: Negative for anxiety or depression Allergy Allergy/Immunology: Negative for hives, Negative for rash Cardiology Exam Const Appearance: cooperative, healthy appearing and no acute distress Nutritional Appearance: well nourished Orientation: alert, oriented x3 and oriented to person Head Head: normal to inspection, normocephalic and atraumatic Nose: external nose normal Face and Sinus: face symmetric Mouth: oral mucosae normal Eyes General: appearance normal, both eyes and all related structures Eyelids: eyelids normal Conjunctivae: conjunctivae normal Pupils: PERRL and normal by confrontation EOM: EOM intact bilaterally Neck Neck: normal visual inspection and full ROM Carotids: normal carotid upstroke Chest Chest inspection: normal inspection of the chest Auscultation: Bilateral: Clear to Auscultation Cardio Palpation: normal PMI Rate: regular rate Rhythm: regular rhythm Heart sounds: S1 normal and S2 normal GI GI: normal to inspection, no hepatosplenomegaly and bowel sounds present Neuro General: alert, awake, oriented x3, CN's II-XI intact bilaterally and moves all extremities Skin Skin: no rashes or lesions noted Extremities Pulses: Normal: Right Femoral Pulse, Left Femoral Pulse, Right Dorsalis Pedis Pulse, Left Dorsalis Pedis Pulse, Right Posterior Tibial Pulse, Left Posterior Tibial Pulse, Right Radial Pulse, Left Radial Pulse Lower Extremity Edema: None: Bilateral Psych Psychological: normal affect Assessment & Plan 1. Atherosclerotic heart disease of [place] coronary artery without angina pectoris I25.10 Plan 1. Coronary artery disease: Patient had no overt symptoms prior to her angioplasty in 2008, and denies any chest pain or shortness of breath at this time. She has a remaining 70% left circumflex stenosis which was not addressed at that time. Given her lack of symptoms prior to her angioplasty, diabetes, and the fact that her angioplasty was 10 years ago, she underwent a stress echocardiogram on 10/18/2019. This was considered to be abnormal. Because of her previous coronary artery disease history, remaining 70% stenosis of left circumflex, and abnormal stress test, she will proceed with left heart catheterization. Her echocardiogram 10/15/2019 showed dysmetria fraction of 65%, stage I diastolic dysfunction, trivial tricuspid valve insufficiency, and an RVSP of 27 mmHg. 2. Mixed hyperlipidemia E78.2 Plan 2. Hyperlipidemia: She underwent a lipid panel on 10/06/2019 that showed cholesterol: 198, HDL: 57, LDL: 113, and triglycerides: 141. She is a currently on atorvastatin 40 mg p.o. nightly and fenofibrate 160 mg p.o. daily. 3. Pulmonary embolism I26.99 Plan 3. Pulmonary embolism: The patient has had 2 pulmonary emboli in the past and requires Coumadin therapy going forward. She will continue Coumadin therapy. Thank you for allowing us to participate in the patients plan of care, if you have any questions please do not hesitate to call. This note was generated using a voice recognition system and there may be incorrect words, spelling or punctuation that were not noted when reviewing the office note prior to saving.
[2019-10-25 08:46] LABS: Bedside Glucose 109 mg/dL (70-110)
[2019-10-25 10:41] LABS: ACT Activated Clotting Time 180 sec (74-137)
--- NOTE | 2019-10-25 10:43 | CL.I_ITS ---
Patient Name: YOBANI REID Study Date: 10/25/2019 Performing: Livan Jha MD Ht: 64.17 inches 163 cm : 1945 Wt: 271.17 lbs 123 kg Age: 74 Gender: female BSA: 2.23 PROCEDURE(S) PERFORMED DE81-IMZ/COR/LV FY40-XAI W OR WO PTCA, SINGLE CORONARY ARTERY CLINICAL PROFILE AND CO-MORBIDITIES Indications: Stable Known CAD Heart Failure: None Stress/Imaging Date: 10/18/2019 Stress Echocardiogram: Positive Intermediate Risk Angina Classification Anginal Classification w/in 2 Weeks: No symptoms CAD Presentations: Other: Dyspnea on exertion Comorbidities/Risk Factors: Hypertension Dyslipidemia Prior PCI Diabetes Mellitus: Diabetes Therapy: Oral CONCLUSIONS Normal LV size, wall motion,and systolic function Normal Left Ventricular systolic function LVEF: by LV gram 75 % Elevated Left Ventricular End Diastolic Pressure Single vessel CAD of the mid LCX Non obstructive coronary arteries Widely patent mid LAD stents. Successful PTCA/LLUVIA mid LCX with a 3.0 x 16 Promus Synergy at 9 kaiser; (2.89mm); 75%-->0%, no dissectio n. RECOMMENDATIONS Referred for immediate PCI Highly recommend quitting all tobacco products Follow up with primary electronic gluer Risk factor modification ASA Indefinitley Plavix for at least 12 months Routine post interventional care Refer for Outpatient Cardiac Rehab Manual sheath removal per protocol Follow up with Dr. Jha Successful Mynx Control to RFA. Restart coumadin 10/26/19 if right groin is ok. DESCRIPTION OF PROCEDURE The patient arrived to the procedure lab. The risks and benefits of the procedure as well as a full d escription of our services here and lack of surgical backup were fully explained to the patient and/o r their significant other prior to the catheterization. The Timeout was completed, verifying the zay ect patient and procedure. The patient's procedural site was prepped and draped in the usual fashion. Local anesthetic was given subcutaneously to right groin region with Lidocaine 2%. Using a modified Seldinger technique, arterial access was obtained via the right femoral artery, a 4Fr sheath was inse rted. Left Coronary Artery selective angiography was performed in multiple views using a 4 Fr. JL5 c atheter. Left Ventriculography was performed in LEZAMA projection using a 4 Fr. Pigtail catheter. LV to AO pullback pressures were then recordedThe images were reviewed and options discussed. A decision wa s then made to proceed with an Intervention, IVUS or other adjunct procedure. Arterial sheath was exchanged for a 6 Fr Sheath. ebu 3.750 Guide catheter was inserted and engage d into the LCA. bmw Guide wire was advanced to the Circumflex. emerge 2.00 x 12 Balloon catheter was advanced across lesion in the circumflex, mid. PTCA balloon inflated at 8 atms for 16 secs. Angiogram performed post balloon dilatation. synergy 3.00 x 16 Drug Eluting stent was advanced across the lesi on in the circumflex, mid. Angiogram performed post stent deployment. Contrast was injected through t he sheath and the Right Iliac and Femoral artery were assessed for possible closure device. The tono rial sheath was pulled and a Mynx closure device was deployed for hemostasis CORONARY ANGIOGRAPHY DOMINANCE: Right Dominant LEFT HEART ASSESSMENT Left Ventricular Ejection Fraction: by LV Gram 75 % Normal Left Ventricular systolic function LVEDP: 20 mmHg Elevated Left Ventricular End Diastolic Pressure Normal LV wall motion LEFT MAIN: Angiographically normal, Mild calcification LEFT ANTERIOR DESCENDING ARTERY: PROX LAD: Mild luminal irregularities less than 30% MID LAD: Instent restenosis 0 % DISTAL LAD: Mild luminal irregularities less than 30% CIRCUMFLEX ARTERY: MID CIRC: 75 % Stenosis RIGHT CORONARY ARTERY: PROX RCA: Mild luminal irregularities less than 30% RT PDA: Ostial - Mild luminal irregularities less than 30% INTERVENTION INFORMATION LESION SITE: Circumflex (Mid) Lesion Complexity: Non-High/Non-C, lesion at bifurcation: No, thrombus present: No, lesion length: 16 mm, culprit lesion: Yes Pre Stenosis: 75 % Pre intervention DOROTA flow: 3 PROCEDURE: Drug Eluting Stent with pre dilatation. Post Stenosis: 0 % Post intervention DOROTA flow: 3 Lesion Devices: Eric Sci EMERGE MR 2.00x12 BALLOON Medtronic 6 Fr EBU3.75 100cm Guide Catheter Posey .014 BMW Paguate Straight 190cm Eric Sci Synergy MR LLUVIA 3.00x16 COMPLICATIONS No Complications PROCEDURE MEDICATIONS Versed 1 mg IV Fentanyl 25 mcg IV Oxygen: 2 L/min via nasal cannula Baby Aspirin (81mg) 1 Tabs PO @ 10/25/2019 08:40:50 Heparin 6000 unit(s) IV 10/25/2019 10:12:08 Nitro 200 mcg IC 10/25/2019 10:03:34 Nitro 200 mcg IC 10/25/2019 10:03:34 Nitro 300 mcg IC 10/25/2019 10:19:38 Nitro Paste 1 in 10/25/2019 10:24:27 SUMMARY OF HEMODYNAMIC DATA Time AIR REST ECG 08:29:51 AO 167/64 (102) SA 10:01:50 LV 158/-1, 30 10:08:20 LV 151/-4, 20 10:08:26 LVp 152/0, 24 10:08:33 AOp 156/63 (100) 10:08:38 Signed By Livan Jha MD On 10/25/2019 10:42:18 Livan Jha MD
--- NOTE | 2019-10-25 11:25 | EKG12_ITS ---
Test Reason : POST PCI Blood Pressure : / mmHG Vent. Rate : 038 BPM Atrial Rate : 038 BPM P-R Int : 158 ms QRS Dur : 122 ms QT Int : 496 ms P-R-T Axes : 002 062 -30 degrees QTc Int : 394 ms Marked sinus bradycardia with sinus arrhythmia Right bundle branch block T wave abnormality, consider inferolateral ischemia Abnormal ECG When compared with ECG of 21-OCT-2017 22:51, Vent. rate has decreased BY 18 BPM QT has shortened Confirmed by ROSA JHA ([id number]), editor farm journal ANABELLA ALVARADO ([id number]) on 11/01/2019 2:25:57 PM Referred By: Rosa Jha Confirmed By:ROSA JHA
[2019-10-25] MEDS: 0.9% Normal Saline 1,000 ML 150 ML IV (11:46)
--- NOTE | 2019-10-25 14:10 | CRPHASE1 ---
Patient Communication PHII Cardiac Rehab Discussed with Patient:: Yes Guide to Cardiac Rehab Given to Patient:: Yes Cardiac Rehab Facility Choice List Given to Patient:: Yes - pt chooses [facility] Choice Program [facility] CR PHII:: Communication Given to CR, Refer to [facility] Administrator:: Livan Jha Phase II Cardiac Rehab:: Yes Sessions:: 36 sessions - 3 days/wk, 12 weeks Risk Factors/Lifestyle Hx Diabetes Mellitus Type 2: Yes Hx Dyslipidemia: Yes Hx Obesity: Yes Height: 1.63 m Weight:: 123.377 kg BMI: 46.7 Family History: Family History (Last Reviewed 09/14/19 @ 15:02 by Camille Choi) Father CAD (coronary artery disease) Mother CVA (cerebral vascular accident) Hypertension Phase I Education Given On:: Tornado, Nutrition, Antiplatelet medication, CHF, Smoking cessation, Diabetes - Type I, Diabetes - Type II Issues Affecting Care:: None Knowledge of Condition:: Yes Hospital Course Cardiac Cath Date:: 10/25/19 Medical/Surgical History Diabetes Type II:: Yes Dyslipidemia:: Yes PTCA:: Yes Cardiac Rehabilitation Info Cardiac Rehabilitation Program Information: Cardiac Rehabilitation is important for patients like you who are recovering from a heart problem. Cardiac rehabilitation programs are recognized as integral to the continued care of the patient with coronary heart disease. The cardiac rehabilitation program is designed to optimize a patient's physical, psychological, and social functioning. Health respiratory care assistant work in cardiac rehabilitation programs and assist you with getting the treatments you need to get stronger and healthier - like exercise, healthy eating habits, and medications. Cardiac rehabilitation has been show to help people with heart problems live longer and have better life enjoyment than people who do not go to cardiac rehabilitation. Please contact the Cardiac Rehabilitation Program at [facility] at in two weeks if you have not heard from them.
--- NOTE | 2019-10-25 14:13 | CRPH1.INSTRU ---
General Education CAD and cardiac anatomy and function:: Patient communicates acknowledgment Explanation of diagnoses and procedures:: Patient communicates acknowledgment Sign/Symptoms of CA:: Patient communicates acknowledgment Antiplatelet therapy: Patient communicates acknowledgment Proper use of NTG-SL: Not instructed Emergency procedures and activation of EMS: Patient communicates acknowledgment Compliance of all prescribed medications: Patient communicates acknowledgment Smoking Nicotine/Smoking Response Code:: Patient communicates acknowledgment Dyslipidemia Dyslipidemia Response Code:: Patient communicates acknowledgment Overweight/Obesity Patient Overweight/Obesity Risk Factors Are:: Obesity - > or = 30 Recommendations Include:: Weight loss of 5-10%, Reduced calorie diet, Exercise 5-7 times/week Overweight/Obesity:: Patient communicates acknowledgment, Family communicates acknowledgment, Patient returns demonstration, Family returns demonstration, Needs reinforcement, Not instructed Hypertension Hypertension:: Patient communicates acknowledgment Heart Disease Heart Disease Response Code:: Patient communicates acknowledgment Diabetes Patient Diabetes Risk Factors Are:: Elevated blood sugars Recommendations Include:: Maintain fasting blood sugars 70-110 md/dL, Maintain HgbA1c of 6% or less, Monitor blood sugar as prescribed, Diabetic dietary guidelines, Decrease/maintain body weight Diabetes:: Patient communicates acknowledgment Metabolic Syndrome Metabolic Syndrome Response Code:: Patient communicates acknowledgment Sedentary Sedentary Response Code:: Patient communicates acknowledgment Stress Stress Response Code:: Patient communicates acknowledgment
[2019-10-25] MEDS: Nitroglycerin Oint 1 INCH PACKET TRANSDERM. (22:20)
[2019-10-25] MEDS: Magnesium Oxide 400 MG Tablet PO (22:21)
[2019-10-25] MEDS: Atorvastatin Calcium 40 MG Tablet PO (22:21)
[2019-10-25] MEDS: Aspirin 81 MG TAB.CHEW PO (22:21)
[2019-10-25 22:35] LABS: Bedside Glucose 110 mg/dL (70-110)
[2019-10-26] VITALS (12 sets, daily range): BP systolic 136–178; BP diastolic 41–84; PULSE 43–65; RESP 15–20; TEMP 36.6–37; O2SAT 93–98
[2019-10-26 02:16] LABS: Bedside Glucose 93 mg/dL (70-110)
[2019-10-26] MEDS: Levothyroxine 112 MCG Tablet PO (04:13)
[2019-10-26] MEDS: Nitroglycerin Oint 1 INCH PACKET TRANSDERM. (06:06)
[2019-10-26 06:12] LABS: Hematocrit 37.5 % (37-47); Hemoglobin 11.7 g/dL (12.0-15.0); Mean Corp Hgb Conc 31.2 g/dL (32-36); Mean Corpuscular Hgb 27.9 pg (27.0-32.0); Mean Corpuscular Volume 89.5 fL (81-99); Mean Platelet Vol. 10.9 fl (6.2-12.0); Platelet Count 254 K/mm3 (150-450); RBC Distribution Width CV 13.7 % (11.6-14.6); RBC Distribution Width SD 44.5 fl (35.1-43.9); Red Blood Count 4.19 M/mm3 (4.2-5.4); White Blood Count 7.1 K/mm3 (4.4-11.0)
[2019-10-26 06:20] LABS: Bedside Glucose 109 mg/dL (70-110)
[2019-10-26 06:33] LABS: ALB/GLOB Ratio 1.1 RATIO (0.9-2.4); AST(SGOT) 16 U/L (15-37); Alanine Aminotransfer ALT/SGPT 21 U/L (13-56); Albumin, Serum 3.4 g/dL (3.2-5.0); Alkaline Phosphatase 43 U/L (45-117); Anion Gap 6 (5-15); BUN 18 mg/dL (7-18); BUN/Creat Ratio 17.8 RATIO (10-20); Calcium,Total 9.3 mg/dL (8.5-10.1); Chloride 111 mmol/L (98-107); Creatinine, Serum 1.01 mg/dL (0.55-1.02); EST Glomerular Filtration Rate 57 mL/min (>60); Est Glom Filt Rate - Afr Amer 69 mL/min (>60); Estimated Creatinine Clearance 43.48 ml/min; Globulin 3.2 g/dL (2.2-4.2); Glucose 101 mg/dL (74-106); Potassium 4.1 mmol/L (3.5-5.1); Protein, Total 6.6 g/dL (6.4-8.2); Sodium Level 143 mmol/L (136-145)
[2019-10-26 07:11] LABS: Prothrombin Time Fingerstick 20.3 SEC (11.9-14.4)
--- NOTE | 2019-10-26 07:38 | DCINST_ITS ---
Discharge Diet: Low fat/ Low Cholesterol Discharge Activity: Return to Normal Activity May shower in (days): 1 - No tub baths for 5 days May resume sexual activity in: 1-2 weeks Lifting Restrictions: Do not lift anything greater than 10 pounds for 3 days Call your doctor if your incision/area has: Continuous Slow Oozing, Sudden Increased Bleeding, Increased Pain/ Swelling, Increased Redness, Foul Smelling Discharge, Swelling at the incision site Call your doctor if you observe: Fever of 101 or Higher, Shortness of breath, Chest pain Remove Dressing in (days):: 1 Cleanse incision/area with: Soap & Water Additional Instructions: You will continue with Aspirin and Plavix therapy. The goal is to remain on Plavix for at least one year. If anyone asks you to stop this medication, please call the [facility] at [phone]. You are scheduled for an office appointment with Dr. Jha on 11/19/2019 at 1:45. Please begin Lovenox injections and Coumadin therapy on 10/26/2019. Check INR on 10/27/2019. You will be contacted in regards to further instructions based on INR results. Please hold your metformin for 3 days. Begin metformin on 10/29/2019. Prescriptions for Plavix and isosorbide have been sent to [facility] in [place]. You will be on aspirin, Plavix, and Coumadin therapy. Please monitor for signs of bleeding. Over time, we can consider adjusting these medications. 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 They should be contacting you to schedule an appointment. If you have any questions or concerns at any point, please call the [facility] at [phone]. Allergies/Adverse Reactions: Allergies adhesive Allergy (Verified 09/14/19 14:56) Rash amoxicillin [Amoxicillin] Allergy (Verified 09/14/19 14:56) Rash ampicillin Allergy (Verified 09/14/19 14:56) Rash cephalexin monohydrate [From Keflex] Allergy (Verified 09/14/19 14:56) Rash Penicillins Allergy (Verified 09/14/19 14:56) Rash Sulfa (Sulfonamide Antibiotics) Allergy (Verified 09/14/19 14:56) Rash Medications to take at Discharge Aspirin [Aspirin, Baby] 81 mg PO QHS 05/10/14 Atenolol [Tenormin (beta alex)] 25 mg PO DAILY 05/10/14 Atorvastatin Calcium [Lipitor] 40 mg PO QHS 05/10/14 Fluticasone 0.05% [Flonase Nasal [place]] 2 spray NASAL DAILY PRN 05/10/14 Fosinopril Sodium 40 mg PO DAILY 05/10/14 Levothyroxine [Synthroid] 112 mcg PO DAILY 05/10/14 Magnesium Oxide [Mag-Ox 400] 400 mg PO BID 05/10/14 Multivitamins,Therapeutic [Multivitamin] 1 tab PO DAILY 05/10/14 Nitroglycerin (INPATIENT USE) [Nitrostat] 0.4 mg SUBLINGUAL Q5M PRN 05/10/14 Oxybutynin Chloride [Ditropan Xl] 15 mg PO DAILY 05/10/14 Azelastine HCl 137 mcg NS PRN PRN 08/10/17 Meclizine HCl [Antivert] 25 mg PO TID PRN PRN #20 tab 10/22/17 Metformin HCl 500 mg PO DAILY 04/07/18 fenofibrate 160 mg tablet 160 mg PO DAILY 09/14/19 hydrocortisone 2.5 % topical cream 1 applic TOPICAL BID 09/14/19 warfarin 5 mg tablet 5 mg PO DAILY 10/18/19 Clopidogrel Bisulfate [Clopidogrel] 75 mg PO .COMPLEX #90 tab 10/26/19 Enoxaparin Sodium 120 mg SC .COMPLEX #8 ml 10/26/19 Isosorbide Mononitrate [Imdur] 30 mg PO DAILY #90 tab 10/26/19 The following prescriptions were given: Isosorbide Mononitrate [Imdur] 30 mg PO DAILY #90 tab Transmission Status: Pending to [facility] Orders to be completed after discharge: Nutrition Referral Location: None Selected Phase II, Outpatient Cardiac Rehab Location: None Selected Primary Care Physician: Earlene Rosario MD [Primary Care Provider] - Test Results: Test results from this visit will be discussed in further detail at your follow- up appointment, if applicable. Please Follow Up With: Dr. Jha When: 11/19/2019 at 1:45 PM Proposed Discharge Date: 10/26/19 Cardiac Rehabilitation Info Cardiac Rehabilitation Program Information: Cardiac Rehabilitation is important for patients like you who are recovering from a heart problem. Cardiac rehabilitation programs are recognized as integral to the continued care of the patient with coronary heart disease. The cardiac rehabilitation program is designed to optimize a patient's physical, psychological, and social functioning. Health acute care nurse practitioner work in cardiac rehabilitation programs and assist you with getting the t reatments you need to get stronger and healthier - like exercise, healthy eating habits, and medications. Cardiac rehabilitation has been show to help people with heart problems live longer and have better life enjoyment than people who do not go to cardiac rehabilitation. Please contact the Cardiac Rehabilitation Program at [facility] at in two weeks if you have not heard from them.
--- NOTE | 2019-10-26 09:06 | PCM.PN.CARD ---
Subjectve: Patient seen and examined this morning. Patient feels much better after angioplasty. She denies any chest pain. Right groin is clean/dry/intact, no thrills, bruits or hematoma. Telemetry showed normal sinus rhythm, no PVCs. EKG shows normal sinus rhythm with previous known right bundle branch block. No acute changes. Hemoglobin and creatinine are within nominal limits. Objective: Vital Signs Temp Pulse Resp BP Pulse Ox 98.2 F 43 L 15 164/55 H 98 10/26/19 07:00 10/26/19 07:02 10/26/19 07:00 10/26/19 07:00 10/26/19 07:00 Oxygen Delivery Method Room Air Weight: 271 lb 2.697 oz Body Mass Index (BMI) 47.2 Finger Stick Blood Glucose 96 Intake and Output for Last 24 Hours 10/24/19 10/25/19 10/26/19 23:59 23:59 23:59 Intake Total 1540 / 1990 950 / 950 Output Total 500 / 500 Balance 1040 / 1490 950 / 950 General: Awake, Alert, Oriented x 3 HEENT: PERRL, EOMI, Sclera Non Icteric Neck: Supple, Good ROM, No Lymph Node Enlargement Lungs: Clear to auscultation Cardiovascular: Regular Rhythm, Normal S1, Normal S2, No Murmurs, No Rubs, No Gallops Vascular: No Carotid Bruits, Normal Femoral Pulses, Normal Radial Pulses, Normal Dorsalis Pedal Pulse, Normal Posterior Tibial Pulses Abdomen: Bowel Sounds Present, Soft, Non Tender, No HSM, No Organomegaly Extremities: No Cyanosis, No Clubbing, No edema Neurological: No Focal Motor or Sensory Deficit 10/25/19 08:38: INR 1.70 10/26/19 06:03: WBC 7.1, RBC 4.19 L, Hgb 11.7 L, Hct 37.5, MCV 89.5, MCH 27.9, MCHC 31.2 L, Plt Count 254, MPV 10.9 10/26/19 06:03: Sodium 143, Potassium 4.1, Chloride 111 H, Carbon Dioxide 26.0, Anion Gap 6, BUN 18, Creatinine 1.01, Est GFR (MDRD) Af Amer 69, Est GFR (MDRD) Non-Af 57 L, BUN/Creatinine Ratio 17.8, Glucose 101, Calcium 9.3, Total Bilirubin 0.60 Rhythm: EKG: ECHO: Stress Test: Cardiac Cath: PCI: CT Surgery: Holter monitor: EPS: PPM: CXR: Chest CT Scan: Medical Necessity - Tobacco Use Smoking Status: Former smoker Tobacco Use: Non-smoker Assessment/Plan 1. Coronary artery disease: Patient status post angioplasty and drug-eluting stent to the mid left circumflex with an excellent result. Patient is done very well overnight and is chest pain-free and in fact feels much better. Patient be discharged home on aspirin, Plavix, atenolol, lisinopril and Imdur will be added for her hypertension. She will be enrolled in cardiac rehab. No additional stenting needed at this time. 2. Hyperlipidemia: Continue Lipitor and fenofibrate therapy. Her LDL should be less than 70. We will repeat lipid profile after cardiac rehab. 3. Patient may be discharged home and follow-up with Dr. Jha going forward. Code Visit Inpatient E&M: 81643 Subs Hosp L2
[2019-10-26] MEDS: Fenofibrate 145 MG Tablet PO (09:16)
[2019-10-26] MEDS: Isosorbide Mononitrate 30 MG Tablet PO (09:16)
[2019-10-26] MEDS: Tolterodine Tartrate 4 MG CAP.SA PO (09:16)
[2019-10-26] MEDS: Lisinopril 40 MG Tablet PO (09:18)
[2019-10-26] MEDS: Atenolol 25 MG Tablet PO (09:18)
[2019-10-26] MEDS: Clopidogrel Bisulfate 75 MG Tablet PO (09:20)
[2019-10-26] MEDS: Magnesium Oxide 400 MG Tablet PO (09:20)
--- NOTE | 2019-10-26 10:00 | EKG12_ITS ---
Test Reason : AM Blood Pressure : / mmHG Vent. Rate : 042 BPM Atrial Rate : 042 BPM P-R Int : 142 ms QRS Dur : 130 ms QT Int : 486 ms P-R-T Axes : -47 052 -06 degrees QTc Int : 405 ms Unusual P axis, possible ectopic atrial bradycardia Right bundle branch block Abnormal ECG When compared with ECG of 25-OCT-2019 11:24, MANUAL COMPARISON REQUIRED, DATA IS UNCONFIRMED Confirmed by ROSA JHA ([id number]), science editor ANABELLA ALVARADO ([id number]) on 11/01/2019 2:26:06 PM Referred By: Rosa Jha Confirmed By:ROSA JHA
== END 2019-10-26 09:55 | disposition home or self-care (01) ==
LOC: CLSP 08:05 → ICU 11:28
PROVIDERS: Family Provider Internal Medicine; PCP Internal Medicine; Referring Provider Internal Medicine Cardiovascular Disease; Visit Provider Internal Medicine Cardiovascular Disease
DX: I25.10 Atherosclerotic heart disease of native coronary artery without angina pectoris (principal); I10 Essential (primary) hypertension; E11.9 Type 2 diabetes mellitus without complications; E66.9 Obesity, unspecified; I45.10 Unspecified right bundle-branch block; E03.9 Hypothyroidism, unspecified; K21.9 Gastro-esophageal reflux disease without esophagitis; E78.2 Mixed hyperlipidemia; Z87.19 Personal history of other diseases of the digestive system; Z86.711 Personal history of pulmonary embolism; Z95.1 Presence of aortocoronary bypass graft; Z79.01 Long term (current) use of 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s; Z79.82 Long term (current) use of aspirin; Z79.84 Long term (current) use of oral hypoglycemic drugs; Z79.02 Long term (current) use of antithrombotics/antiplatelets; Z79.899 Other long term (current) drug therapy; Z87.891 Personal history of nicotine dependence
CPT/HCPCS: 36416; 80053; 82962; 85027; 85347; 85610; 92928; 93005; 93458; 99152; 99153; J7030; J7040; Q9967; C1725; C1769; C1874; C1887; C9600

== ENCOUNTER → 2019-10-27 10:12 | Outpatient (CLI) | payer MEDICARE, OTHER, SELFPAY ==
[2019-10-19 11:43] VITALS: BMI 46.7
[2019-10-25 10:48] VITALS: BMI 47.2
[2019-10-25 14:13] VITALS: BMI 46.7
[2019-10-27 11:26] LABS: International Normalized Ratio 1.2; Prothrombin Time (Protime)PT. 15.1 SECONDS (11.7-14.9)
== END ==
LOC: LAB.FUTURE 10:16 → LAB 10:17
PROVIDERS: Family Provider Internal Medicine; PCP Internal Medicine; Referring Provider Internal Medicine Cardiovascular Disease; Visit Provider Internal Medicine Cardiovascular Disease
DX: I25.10 Atherosclerotic heart disease of native coronary artery without angina pectoris (principal); I26.99 Other pulmonary embolism without acute cor pulmonale; Z79.01 Long term (current) use of 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s
CPT/HCPCS: 36415; 85610

== ENCOUNTER → 2019-11-08 13:06 | Outpatient (CLI) | payer MEDICARE, OTHER, SELFPAY ==
[2019-10-25 10:48] VITALS: BMI 47.2
[2019-10-25 14:13] VITALS: BMI 46.7
--- NOTE | 2019-11-08 13:11 | CR.HP_ITS ---
CR - History & Physical - General Arrival date:: 11/08/19 Arrival time:: 13:13 Date of Referral:: 10/25/19 Date of CR Evaluation:: 11/08/19 Referring Physician: Dr. Livan Jha Primary Diagnosis: Z95.5 PCI with stent - History of Present Cardiac Event Onset Date: Enter Onset Date of cardiac illnesses in Comment field below PTCA or coronary stenting:: Yes Interventions with present event:: PCI with Stent 10/25/2019 Were there any complications?: none - Medications Home Medications: Ambulatory Orders Medication Instructions Recorded Aspirin [Aspirin, Baby] 81 mg PO QHS 05/10/14 Atenolol [Tenormin (beta alex)] 25 mg PO DAILY 05/10/14 Atorvastatin Calcium [Lipitor] 40 mg PO QHS 05/10/14 Fluticasone 0.05% [Flonase Nasal 2 spray NASAL DAILY PRN 05/10/14 [place]] Fosinopril Sodium 40 mg PO DAILY 05/10/14 Levothyroxine [Synthroid] 112 mcg PO DAILY 05/10/14 Multivitamins,Therapeutic 1 tab PO DAILY 05/10/14 [Multivitamin] Nitroglycerin (INPATIENT USE) 0.4 mg SUBLINGUAL Q5M PRN 05/10/14 [Nitrostat] Oxybutynin Chloride [Ditropan Xl] 15 mg PO DAILY 05/10/14 Azelastine HCl 137 mcg NS PRN PRN 08/10/17 Meclizine HCl [Antivert] 25 mg PO TID PRN PRN #20 tab 10/22/17 Metformin HCl 500 mg PO DAILY 04/07/18 fenofibrate 160 mg tablet 160 mg PO DAILY 09/14/19 hydrocortisone 2.5 % topical cream 1 applic TOPICAL BID 09/14/19 warfarin 5 mg tablet 5 mg PO DAILY 10/18/19 Enoxaparin Sodium 120 mg SUBCUT .COMPLEX #8 ml 10/26/19 Isosorbide Mononitrate [Imdur] 30 mg PO DAILY #90 tab 10/26/19 clopidogrel 75 mg tablet 75 mg PO DAILY #90 tab 10/26/19 magnesium oxide 400 mg (241.3 mg 800 mg PO BID tab 10/27/19 magnesium) tablet - Allergies Allergies/Adverse Reactions: Allergies adhesive Allergy (Verified 09/14/19 14:56) Rash amoxicillin [Amoxicillin] Allergy (Verified 09/14/19 14:56) Rash ampicillin Allergy (Verified 09/14/19 14:56) Rash cephalexin monohydrate [From Keflex] Allergy (Verified 09/14/19 14:56) Rash Penicillins Allergy (Verified 09/14/19 14:56) Rash Sulfa (Sulfonamide Antibiotics) Allergy (Verified 09/14/19 14:56) Rash - Sleep Disorder Evaluation Hx of Sleep Apnea: No Do you snore loudly (louder than talking or can be heard through closed doors)?: Yes - Pt declines Do you often feel tired/ fatigued/ sleepy during daytime?: No Has anyone observed you stop breathing during sleep?: No History of Hypertension (for STOP score): Yes STOP Results: Positive Advanced Directives - Advanced Directives Power of Stained Glass Window Designer: No Living Will: No Advance Directives Information Provided: No Advance Directives on File: No DNR Order?:: No Past Medical History - Past Medical Illness Medical History: Past Medical History (Last Updated 10/27/19 @ 11:45 by Minerva Dos Santos) USP current use of 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 (Chronic) Z79.01 Pulmonary embolism (Acute) Onset Date: 08/2017 I26.99 RBBB (right bundle branch block) (Acute) I45.10 Hypothyroidism (Chronic) E03.9 GERD (gastroesophageal reflux disease) (Chronic) K21.9 Presence 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 (Chronic) Onset Date: 10/25/19 Z95.5 PTCA/LLUVIA to LAD 10/06/09 @ [facility] 10/25/2019:Single vessel CAD of the mid LCX Non obstructive coronary arteries; Widely patent mid LAD stents. Successful PTCA/LLUVIA mid LCX with a 3.0 x 16 Promus Synergy 10/25/2019 per NALLELY @ [facility] Atherosclerotic heart disease of [place] coronary artery without angina pectoris (Chronic) I25.10 Mixed hyperlipidemia (Chronic) E78.2 Essential hypertension (Chronic) I10 Obesity (Chronic) E66.9 DM2 (diabetes mellitus, type 2) (Chronic) E11.9 History of gastric ulcer Z87.19 History of pulmonary embolism Onset Date: ~08/2017 Z86.711 Incisional hernia, without obstruction or gangrene K43.2 - Past Surgical History Surgical History: Past Surgical History (Last Reviewed 09/14/19 @ 15:02 by Camille Choi) Presence of coronary angioplasty implant and graft Onset Date: ~10/06/09 Z95.5 PTCA/LLUVIA to LAD 10/06/09 @ [facility] H/O hernia repair Z98.890, Z87.19 03/2018 History of appendectomy Z90.49 History of heart artery stent Z95.5 S/P cardiac catheterization Z98.890 S/P carpal tunnel release Z98.890 S/P colonoscopy Onset Date: ~05/2013 Z98.890 S/P hysterectomy Z90.710 S/P tonsillectomy Z90.89 S/P trigger finger release Z98.890 Surgical History: hysterectomy, tonsillectomy, - - Family History Summary Family History: Family History (Last Reviewed 09/14/19 @ 15:02 by Camille Choi) Father CAD (coronary artery disease) Mother CVA (cerebral vascular accident) Hypertension Social History - Smoking History Smoking Status: Former smoker Years Smokin Packs Smoked per Day: 1 Hx Tobacco Use: Yes - pt quit 40 years ago - Alcohol Use Alcohol Usage: Yes - rare - Substance Abuse Hx Substance Use: No - Occupation Occupation (List type of work in comments):: Retired - Hobbies, Recreation, Social Activities Hobbies: Sewing, Reading, Other - puzzles Recreational Activities: I am able to engage in all my recreational activities Social Environment - Status Marital Status: - Current Living Arrangements Living Environment:: Alone - Safety Do you feel safe in your surroundings?: Yes - Assistance Do you need any assistance at home?: none Review of Systems - Review of Systems Hints: Right click = Denies ([place]). Left click = Reports ([place]) Review of Present Symptoms: Reports: Shortness of Breath with Exertion, Appetite - Normal, Sleep - Normal. Denies: Shortness of Breath at Rest, PVD, Operative Discomfort, Angina, Wound Healing, Dizziness/Lightheadedness, Fatigue, Heart Arrhythmia/Irregularities, Appetite - Special Diet, Sexual Changes - Pain Is Patient Pain Free?: Yes Pain Location: none Risk Factor Assessment - Chief Complaint Chief Complaint: PCI with Stent - Vital Signs Pulse Ox: 96 - Pulse Pulse Rate: 61 Pulse Rhythm: Regular - Hypertension Blood Pressure Sitting - Right Arm: 122/60 - Diabetes Diabetic History: Type II Nutrition Referral for Diabetes: Yes - Obesity Height: 1.63 m Weight:: 123.377 kg Weight in Pounds: 272.0 lbs Body Mass Index (BMI): 46.7 Nutritional Referral for Obesity: No - Physical Inactivity Physical Inactivity: Reg Exercise 30 min/day, Physically demanding job, Recreational activity, None - Risk Stratification Risk Guidelines: Moderate Risk: Risk Factor for Smoking, Risk Factor for Dyslipidemia, Risk Factor for Hypertension, Risk Factor for Sedentary Lifestyle, Risk Factor for Depression, Highest Risk: Risk Factor for Diabetes, Risk Factor for Obesity - For Smoking Smoking Risk Guidelines: Smoking Low Risk: None or quit greater than 6 months ago. Smoking Moderate Risk: Smoker or quit 6 months or less ago. Smoking High Risk: Smoker - For Dyslipidemia Dyslipidemia Risk Guidelines: Low Risk: Moderate Risk: High Risk: 15-25% fat 25.1-29% fat >/= 30% fat. <7% sat fat 7-9% sat fat >9% sat fat. <150 mg chol 150-299 mg chol >/= 300 mg chol. LDL <100 LDL 100-129 LDL >/= 130. Chol/HDL ratio <5.0 Chol/HDL ratio 5.0-6.0 Chol/HDL ratio >6.0. Triglycerides <100 Triglycerides 100-149 Triglycerides >/= 150 - For Diabetes Mellitus Diabetes Risk Guidelines: Diabetes Low Risk: HgA1c <6.5% and/or FBG <120. Diabetes Moderate Risk: HgA1c 6.6-7.9% and/or FBG 120-180. Diabetes High Risk: HgA1c >/= 8% and/or FBG >180 - For Obesity/Overweight Obesity/Overweight Risk Guidelines: Obesity Low Risk: BMI <25.0. Obesity Moderate Risk: BMI 25-29.9. Obesity High Risk: BMI >/= 30.0 - For Hypertension Hypertension Risk Guidelines: Hypertension Low Risk: Systolic <120 and Diastolic <80. Hypertension Moderate Risk: Systolic 120-139 and Diastolic 80-89. Hypertension High Risk: Systolic >/= 140 and Diastolic >/= 90 - For Sedentary Lifestyle Sedentary Lifestyle Risk Guidelines: Sedentary Lifestyle Low Risk: >/= 1,500 kcal/week. Sedentary Lifestyle Moderate Risk: 700-1,499 kcal/week. Sedentary Lifestyle High Risk: < 700 kcal/week - For Depression Depression Risk Guidelines: Depression Low Risk: Not clinically depressed. Depression Moderate Risk: Mildly depressed. Depression High Risk: Clinically depressed - Family History Family History: Family History (Last Reviewed 09/14/19 @ 15:02 by Camille Choi) Father CAD (coronary artery disease) Mother CVA (cerebral vascular accident) Hypertension Motivation - Motivation to Participate On a scale of 1 to 10, how prepared are you to commit to attending program?: 10 What do you see as barriers to successfully being able to complete the program?: none What do you see as the benefits of succesfully completing the program? In other words, what do you hope to get out of participating in the program?: improved health Are there issues you are dealing with that will interfere with completing the program?: no
--- NOTE | 2019-11-08 13:13 | CR.ITP_ITS ---
General Information - General Information Admitting Diagnosis: Z95.5 PCI with stent - Education/Goals Barriers to Learning: None Cardiac Rehabilitation Goals: 1. Maintain the individual as the primary focus of care. 2. To improve the patient's quality of life. 3. Identification of cardiac risk factors and provide cardiac risk factor management. 4. Enhance the psychosocial status of the patient. 5. Reconditioning enough to allow the patient to resume customary activities. 6. Control symptoms of cardiac disease Scale for measuring improvement of personal goals: Enter appropriate number in Comments. 2 = Unchanged. 3 = Slightly Better. 4 = Moderate Improvement. 5 = Met my Goal Personal Goals: Initial Assessment: Improve energy level, Participate in home exercise program, Improve knowledge of cardiac disease, Improve muscle strength and endurance, Improve diet and eating habits (eat healthier), Control risk factors (learn risk factor modification) Exercise - Initial Assessment - Visit Date of Eval: 11/08/19 - initial eval - Stages of Change Stages of Change:: Contemplate - Physician Prescribed Exercise Modalities: Treadmill, Biodyne, Rower, Airdyne, NuStep, SciFit Frequency (days/week): 3x/week for 12 weeks [36 sessions] Duration (Minutes):: 30-45 min Intensity: 60-80% age predicted maximum heart rate reserve METs - Progression: 0.5-1.0 MET, RPE 11-14 WEEK: 3.0 Target Heart Rate:: 96-126 - Hypertension Resting Blood Pressure:: 122/60 - Intervention Home Exercise/Activity Goal:: Moderate Exercise 30 min/day x 5 days/wk - Education Goals:: Warm-up, RPE KEENAN Scale, S/S, Safe Exercise, Self-Monitoring - Exercise Program Goals Exercise Program Goals: Aerobic Activity >30 min, B/P <130/80 Nutrition - Initial Assessment - Program Goals Nutrition Program Goals: LDL <70. Total Cholesterol <200. HDL >45. Triglycerides <150. HgbA1C <7%. BMI <25 - Visit Date of Assessment:: 11/08/19 - Stages of Change Stages of Change:: Contemplate - Diabetes Diabetes:: Yes - Weight Management Height: 1.63 m Weight:: 123.377 kg Total Score:: 6 - Intervention Referral to dietitian:: No Referral to Diabetic Clinic:: No Will attend diet classes:: Yes - Education Gave educational materials for:: Signs & symptoms of hypoglycemia, Signs & symptoms of hyperglycemia, Relate diabetes to coronary artery disease, Healthy eating Tobacco - Initial Assessment - Program Goals Tobacco Program Goals: Complete smoking cessation. Attend education classes. Improve Knowledge Test score - Stage of Change Stages of Change:: Action - Learning Barriers Total Score:: 17 - Family Support Do you have family support?: Yes - Tobacco Use Tobacco Use: Non-smoker How long ago did you quit using tobacco products?: Greater than or equal to 6 months ago Do you use smokeless tobacco?: No - Intervention Smoking Cessation Referral:: No Individual Education/Counseling:: No Education Schedule Given:: Yes Psychosocial - Initial Assess - Target Goals Target Goals: Assess presence or absence of depression. Using a valid screening tool, maximizes coping skills. Positive support system - Stages of Change Stages of Change:: Contemplate - Psychosocial Test Tool Used:: HANDS Depression Questionnaire Total Mood Screening Score:: 5 Self-Efficacy Score:: 6 - Intervention PS - Interventions: Yes Attend Stress Management Classes, Yes Uses Stress Management Skills, No Referral to Mental Health, No Referral to [facility] Case Management, No Referral to Physician - Education Gave educational materials for:: Coping techniques, Signs & symptoms of depression, Stress management, Relaxation techniques - Assistive Devices Assistive Devices:: None Fall Risk Assessed:: Yes Patient Health Questionnaire Initial Assessment 1. Little interest or pleasure in doing things: Not at all 2. Feeling down, depressed, or hopeless: Not at all 3. Trouble falling or staying asleep, or sleeping too much: More than half the days 4. Feeling tired or having little energy: More than half the days 5. Poor appetite or overeating: Not at all 6. Feeling bad about yourself -- or that you are a failure or have let yourself or your family down: Not at all 7. Trouble concentrating on things, such as reading the newspaper or watching television: Several days 8. Moving or speaking so slowly that other people could have noticed. Or the opposite - being so fidgety or restless that you have been moving around a lot more than usual: Not at all 9. Thoughts that you would be better off , or of hurting yourself in some way: Not at all How difficult have these problems made it for you to do your work, take care of things at home, or get along with other people?: Not difficult at all Total Score: 5 JAMES-Q SV Test - Statements CAD is a disease of the arteries in the heart: False Examples of risk factors for heart disease: True Angina is chest pain or discomfort: True The benefits of resistance training include: True Eating more meat and dairy products: False Anti-platelet medications such as aspirin are important: True The only effective way to manage stress: False An exercise warm-up slowly increases heart rate: True Prepared, processed foods usually have high sodium: True Depression is common after a heart attack: I Don't Know The statin medications lower cholesterol: True To control blood pressure, lower the amount of sodium: True If someone gets chest discomfort during walking: False Transfats are partially hydrogenated vegetable oils: True Sleep apnea that is not treated increases the risk: I Don't Know To control cholesterol, one should become a vegetarian: False Someone knows if he/she is exercising at the right level: True Diabetes cannot be prevented with exercise & health eating: I Don't Know Stress is a large risk for heart attack: True A diet that can help lower blood pressure is rich in: True - Total Score Total Correct Responses: 17 Self-Efficacy Initial Assessment We would like to know how confident you are in doing certain activities. Please select your confidence level for:: Select your confidence level for the following using the scale 1-10 where 1 is not at all confident and 10 is totally confident. Your score is the average of all 6 responses. Fatigue: How confident are you that you can keep the fatigue caused by your disease from interfering with the things you want to do? Select Number: 5 Physical Discomfort or Pain: How confident are you that you can keep the physical discomfort or pain of your disease from interfering with the things you want to do? Select Number: 6 Emotional Distress: How confident are you that you can keep the emotional distress caused by your disease from interfering with the things you want to do? Select Number: 8 Other Symptoms or Health Problems: How confident are you that you can keep other symptoms or health problems from interfering with the things you want to do? Select Number: 6 Different Tasks and Activities: How confident are you that you can do the dif ferent tasks and activities needed to manage your health condition so as to reduce your need to see a doctor? Select Number: 5 Medication: How confident are you that you can do things other than just taking medication to reduce how much your illness affects your everyday life? Select Number: 7 Total Score:: 6 Nutrition Survey - Nutrition Survey Instructions Scoring Instructions: Scoring is as follows: Yes = 1 points. No = 0 point. Patient score that is >/=12 is considered to be at potential nutritional risk and could benefit from a referral to a registered dietitian. - Nutrition Survey Initial Have you lost >10 lbs over the past 2 months without trying?: No Are you following a special diet at home for diabetes, low fat, or low salt?: Yes Are you interested in meeting with a dietitian for help understanding your diet?: Yes Do you eat less than 3 meals a day?: No Do you eat fatty meats (shaikh, sausage, ribs, etc), fried foods, desserts, large amounts of salad dressings, margarine, butter, or cheese most days?: Yes Do you have food allergies? [Enter types in comment field]: Yes Do you eat in restaurants more than 3 times a week?: Yes Do you season food with salt, seasoning salt, or garlic salt?: Yes Do you used canned, boxed, frozen meals, or soups, seasoning packets?: No Total Score:: 6
[2019-11-08 14:28] VITALS: BP 122/60
[2019-11-08 14:30] VITALS: BP 122/60; PULSE 61; O2SAT 96; BMI 46.7
== END ==
PROVIDERS: Family Provider Internal Medicine; PCP Internal Medicine; Referring Provider Internal Medicine Cardiovascular Disease; Visit Provider Internal Medicine Cardiovascular Disease
DX: I25.10 Atherosclerotic heart disease of native coronary artery without angina pectoris (principal); I45.10 Unspecified right bundle-branch block; E03.9 Hypothyroidism, unspecified; K21.9 Gastro-esophageal reflux disease without esophagitis; I10 Essential (primary) hypertension; E66.9 Obesity, unspecified; K43.2 Incisional hernia without obstruction or gangrene; E78.2 Mixed hyperlipidemia; E11.9 Type 2 diabetes mellitus without complications; Z87.19 Personal history of other diseases of the digestive system; Z86.711 Personal history of pulmonary embolism; Z95.1 Presence of aortocoronary bypass graft; Z79.82 Long term (current) use of aspirin; Z79.84 Long term (current) use of oral hypoglycemic drugs; Z79.899 Other long term (current) drug therapy; Z87.891 Personal history of nicotine dependence

== ENCOUNTER 2019-11-10 10:00 | Outpatient (RCR) | payer MEDICARE, OTHER, SELFPAY ==
[2019-10-25 10:48] VITALS: BMI 47.2
[2019-10-25 14:13] VITALS: BMI 46.7
[2019-11-01 14:31] LABS: Prothrombin Time Fingerstick 20.6 SEC (11.9-14.4)
[2019-11-03 16:09] LABS: Prothrombin Time Fingerstick 21.1 SEC (11.9-14.4)
[2019-11-10 10:15] LABS: Prothrombin Time Fingerstick 24.2 SEC (11.9-14.4)
== END 2019-11-10 18:00 | disposition home or self-care (01) ==
LOC: LAB 10:00
PROVIDERS: Family Provider Internal Medicine; PCP Internal Medicine; Referring Provider Internal Medicine Cardiovascular Disease; Visit Provider Internal Medicine Cardiovascular Disease
DX: I26.99 Other pulmonary embolism without acute cor pulmonale (principal); I25.10 Atherosclerotic heart disease of native coronary artery without angina pectoris; Z79.01 Long term (current) use of 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s
CPT/HCPCS: 36416; 85610

== ENCOUNTER → 2019-11-26 10:47 | Outpatient (CLI) | payer MEDICARE, OTHER, SELFPAY ==
[2019-10-25 14:13] VITALS: BMI 46.7
[2019-11-19 13:47] VITALS: BMI 46.3
[2019-11-26 11:09] LABS: International Normalized Ratio 1.9; Prothrombin Time (Protime)PT. 21.5 SECONDS (11.7-14.9)
== END ==
PROVIDERS: Family Provider Internal Medicine; PCP Internal Medicine; Referring Provider Internal Medicine; Visit Provider Internal Medicine
DX: I26.99 Other pulmonary embolism without acute cor pulmonale (principal); Z79.01 Long term (current) use of 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s; Z86.718 Personal history of other venous thrombosis and embolism; I25.10 Atherosclerotic heart disease of native coronary artery without angina pectoris; Z95.5 Presence of coronary angioplasty implant and graft
CPT/HCPCS: 85610; 93798

== ENCOUNTER 2019-11-29 15:15 | Outpatient (RCR) | payer MEDICARE, OTHER, SELFPAY ==
[2019-10-25 14:13] VITALS: BMI 46.7
[2019-11-08 14:30] VITALS: BMI 46.7
[2019-11-19 13:47] VITALS: BMI 46.3
== END 2019-11-30 23:59 ==
LOC: CR 15:15
PROVIDERS: Family Provider Internal Medicine; PCP Internal Medicine; Referring Provider Internal Medicine Cardiovascular Disease; Visit Provider Internal Medicine Cardiovascular Disease
DX: I25.10 Atherosclerotic heart disease of native coronary artery without angina pectoris (principal); Z95.5 Presence of coronary angioplasty implant and graft
CPT/HCPCS: 93798

== ENCOUNTER → 2019-12-10 12:16 | Outpatient (CLI) | payer MEDICARE, OTHER, SELFPAY ==
[2019-10-25 14:13] VITALS: BMI 46.7
[2019-11-19 13:47] VITALS: BMI 46.3
[2019-12-10 13:04] LABS: International Normalized Ratio 1.8; Prothrombin Time (Protime)PT. 20.6 SECONDS (11.7-14.9)
== END ==
PROVIDERS: Family Provider Internal Medicine; PCP Internal Medicine; Referring Provider Internal Medicine; Visit Provider Internal Medicine
DX: I26.99 Other pulmonary embolism without acute cor pulmonale (principal); Z86.718 Personal history of other venous thrombosis and embolism; I25.10 Atherosclerotic heart disease of native coronary artery without angina pectoris; Z95.5 Presence of coronary angioplasty implant and graft
CPT/HCPCS: 85610; 93798

== ENCOUNTER 2019-12-21 12:51 | Outpatient (RCR) | payer MEDICARE, OTHER, SELFPAY ==
[2019-10-25 14:13] VITALS: BMI 46.7
[2019-11-19 13:47] VITALS: BMI 46.3
== END 2019-12-31 23:59 ==
LOC: NS 12:51
PROVIDERS: Family Provider Internal Medicine; PCP Internal Medicine; Visit Provider Internal Medicine Cardiovascular Disease
DX: Z71.3 Dietary counseling and surveillance (principal); E11.9 Type 2 diabetes mellitus without complications; E66.01 Morbid (severe) obesity due to excess calories; Z68.42 Body mass index [BMI] 45.0-49.9, adult
CPT/HCPCS: 97802

== ENCOUNTER 2019-12-31 15:15 | Outpatient (RCR) | payer MEDICARE, OTHER, SELFPAY ==
[2019-10-25 14:13] VITALS: BMI 46.7
[2019-11-19 13:47] VITALS: BMI 46.3
== END 2019-12-31 23:59 ==
LOC: CR 15:15
PROVIDERS: Family Provider Internal Medicine; PCP Internal Medicine; Referring Provider Internal Medicine Cardiovascular Disease; Visit Provider Internal Medicine Cardiovascular Disease
DX: I25.10 Atherosclerotic heart disease of native coronary artery without angina pectoris (principal); Z95.5 Presence of coronary angioplasty implant and graft
CPT/HCPCS: 93798

== ENCOUNTER 2020-01-26 08:30 | Outpatient (RCR) | payer MEDICARE, OTHER, SELFPAY ==
[2019-10-25 14:13] VITALS: BMI 46.7
[2019-11-19 13:47] VITALS: BMI 46.3
== END 2020-01-29 23:59 ==
LOC: NS 08:30
PROVIDERS: Family Provider Internal Medicine; PCP Internal Medicine; Visit Provider Internal Medicine Cardiovascular Disease
DX: Z71.3 Dietary counseling and surveillance (principal); E11.9 Type 2 diabetes mellitus without complications; E66.01 Morbid (severe) obesity due to excess calories; Z68.42 Body mass index [BMI] 45.0-49.9, adult
CPT/HCPCS: 97803; G0108

== ENCOUNTER 2020-01-28 15:15 | Outpatient (RCR) | payer MEDICARE, OTHER, SELFPAY ==
[2019-10-25 14:13] VITALS: BMI 46.7
[2019-11-19 13:47] VITALS: BMI 46.3
--- NOTE | 2020-01-10 08:35 | CR.ITP_ITS ---
Diagnosis - General Information Admitting Diagnosis: PCI W/STENTING Personal Learning Style:: Audio/Visual, Written Barriers to Learning: Vision Impairment Stage of change r/t lifestyle modifications:: Action Gave educational material for:: Treating Heart Disease, Emotions & Heart Disease, Stress Management & Relaxation, Sleep Disorders & Heart Disease, How The Heart Works, What it means to have Heart Disease, How Coronary Artery Disease is Diagnosed, Heart Procedures, What Heart Medications Do, Risk Factors & Modifications, Living an Active Life, Nutrition - Education/Goals Individual Counseling: Initial Assessment: Abnormal Cholesterol Levels, High Blood Pressure, Overweight/Obesity Cardiac Rehabilitation Goals: 1. Maintain the individual as the primary focus of care. 2. To improve the patient's quality of life. 3. Identification of cardiac risk factors and provide cardiac risk factor management. 4. Enhance the psychosocial status of the patient. 5. Reconditioning enough to allow the patient to resume customary activities. 6. Control symptoms of cardiac disease Personal Goals: Initial Assessment: Improve energy level - 4, Participate in home exercise program - 4, Improve knowledge of cardiac disease - 4, Improve muscle strength and endurance - 4, Improve diet and eating habits (eat healthier) - MEETING WITH DIETITIAN, Control risk factors (learn risk factor modification) Scale for measuring improvement of personal goals: Enter appropriate number in Comments. 2 = Unchanged. 3 = Slightly Better. 4 = Moderate Improvement. 5 = Met my Goal - Diagnosis & Disease Process Outcomes/Goals: Pt IDs own risk factors & lifestyle modifications by Session 10, Verbalizes symptoms of angina & response by session 3., Pt independently manages Plan/Interventions: Assist Pt to ID & engage in lifestyle modification to reduce CVD risk, Instruct on individual risk factors, Review symptoms of angina & emergency actions, Review secondary diagnosis & identify educational needs. 30 day Reassessments:: Progressing - Safety Referral to Physical Therapy: No Referral to [facility] Case Management: No Fall Risk Assessed:: No Assistive Devices:: None Exercise - 60-day Assessment - Visit Date of Eval: 01/10/20 Session #:: 19 - STARTED CR 11/19/2019 - Physician Prescribed Exercise Modalities: Treadmill, Airdyne, NuStep Frequency: 3x/week for 12 weeks [36 sessions] Intensity: 60-80% of age predicted maximum heart rate reserve Current METSs:: 3.7 LIMITED BY WEIGHT, KNEES HIPS Target Heart Rate:: 96-126 Current RPE:: 12-13 Maximum Excercise HR:: 111 Resting Blood Pressure: 124/50 Maximum Exercise Blood Pressure: 190/80 EKG Type: SB to sinus tachy w/ST depression noted (Dr. Khan) occasional PAC & PAT Current Physical Activity or Exercising minutes: >30 min daily - Outcomes & Goals Goals:: Verbalizes understanding of THR, RPE & goal METS by session 6, Documents in home exercise log/reports 30 min aerobic 5 day/wk by DC, Demonstrates accurate pulse taking by DC - Intervention & Plan Exercise Program Goals: Instruct on personal THR & RPE, Instruct on MET level & personal MET goal, Show patient to take own pulse /validate performance until accurate, Instruct on home exercise - 30-day Reassessments 30 day Reassessments:: Progressing - Physical Activity Home Exercise Physical Activity - Home Exercise: Safe Exercise, Warm-up, Self-monitoring, Cool-Down, Home Exercise > 30 min Daily, Sitting Time <3 hours/daily - Outcomes & Goals Outcomes/Goals: Demonstrates correct Warm-up/exercise Cool-Down (S3) if = 2.5 METs, Verbalizes symptoms of exercise intolerance by Session 3 (S3), Demonstrate safe equipment use (S3) & follows exercise prescrition (6) - Intervention & Plan Plan/Intervention: Instruct warm-up & cool-down if exercising at > 2 METs, Instruct on symptoms of exercise intolerance & actions to take, Instruct & monitor on saf, Assess intial functional capacity & safety risk - 30-day Reassessments 30 day Reassessments:: Progressing Nutrition - 60-Day Assessment - Program Goals Nutrition Program Goals: LDL <100 optimal. 100 - 129 Near optimal. 130 - 159 Borderline High. 160 - 189 High. Total Cholesterol <200 desirable. 200 - 239 Borderline High. >/= 240 High. HDL < 40 Low >/=60 High. Triglycerides <150 desirable. <199 optimal. VlDL 5 - 40. HgbA1C <7%. BMI <25 Patient has diagnosis of Hyperlipidemia (ICD E78)?: Yes - Visit Date of Assessment:: 01/10/20 Session #:: 19 - Cholesterol/Lipids Triglycerides (mg/dL): 141 - 10/06/2019 Total Cholesterol (mg/dL): 198 LDL Cholesterol (mg/dL): 113 HDL Cholesterol (mg/dL): 57 Determine presence & major risk factors that modify LDL goal: Hypertension or hypertensive medication, Age men > 45 years; women >/= 55 years Outcomes/Goals: Pt IDs own risk factors & lifestyle modifications by Session 10, Verbalizes symptoms of angina & response by session 3., Pt independently manages Intervention/Plan: Instruct on personal lipid levels & lipid goals/NCEP guidelines, Instruct on cholesterol Referral to dietitian:: Yes - MEDICAL NUTRITION THERAPY - Diabetes (Other Core Measures) Diabetes Type: Diagnosis Type II ICD-10 E11 Fasting blood glucose:: 101 Hgb A1C (4.2 -6.3): 6.1 Insulin dependent injection/pump?: No Non-Insulin Dependent?: Yes - METFORMIN Do you monitor your blood sugar at home?: Yes Referral to Diabetic Clinic:: No - Weight Mgt (Other Care) Not Applicable: Yes Height: 5 ft 4 in Weight:: 269 lb - DOWN 3 POUNDS THIS 30-DAYS BMI: 46.1 Diagnosis Overweight/Obesity BMI> 30% ICD-10 E66: Yes Diagnosis High BMI/Morbid Obesity BMI> 35% ICD-10 Z68: Yes Outcomes/Goals: Pt sets, maintains & shows weight loss goal & trend during rehab Intervention/Plan: Instruct on ideal BMI & set weight loss goal w/patient, Assist pt to ID & incorporate diet changes for weight loss by S9, Refer to Structured Weight Loss program as appropriate, Encourage goal of using 250- 300dcal per session for weight loss 30 day Reassessments:: Progressing - Healthy Eating Habits Will attend diet classes:: Yes Outcomes/Goals:: Consume diet rich in vegs,fruits,whole grain/high fiber,fish,lean meat, Limit sat/trans fats,cholesterol & added salts & sugars Intervention/Plan:: Assess current eating habits 30-day Reassessments:: Progressing - Education Gave educational materials for:: Healthy eating Medical- 30-Day Assessment - Visit Date of Eval: 01/10/20 Session #:: 19 - Medication Compliance Preventative Medication(s):: Aspirin, PREETI inhibitor, Clopidogrel/P2Y12 inhibit, Statin/lipid, Beta alex, Warfarin/Coumadin, ARB (Angiotensi Rcap) H/O mental health issues: depression, anxiety, or addiction?: No Doesn?t believe in the benefits of treatment?: No Believes medications are unnecessary or harmful?: No Has a concern about medication side effects?: No Expresses concern over the cost of medications?: No Outcomes/Goals: Verbalizes medications,desired effect & common side effects @ DC, Pt self-reports following medication regimen, Keeps card in wallet w/medications listed by DC Interventions/plans: Instruct on medication effects & side effects, Review medication list w/patient every two weeks, Instruct importance of taking meds as ordered & assist problem solving 30-day Reassessments:: Progressing - Tobacco Use Tobacco Use: Non-smoker - FORMER SMOKER - ABSTAINING SUCCESSFULLY How long ago did you quit using tobacco products?: Greater than or equal to 6 months ago Do you use smokeless tobacco?: No Interventions/plan: Instruct on effects of smoking & provide smoking cessation resource 30-day Reassessments:: Progressing - Hypertension Hypertension Diagnosis:: Hypertension ICD-10 I10 Resting Blood Pressure:: 124/50 [place] [employer] Hypertension Guidelines: [place] [employer] Hypertension Guidelines. Normal BP Less than 120/80. Elevated BP 120/80. Hypertension Stage 1: BP 130-139/80-89. Hypertesnion Stage 2: BP 140 or higher/90 or higher. Hypertension Crisis: BP higher than 180/120 Peak Exercise Blood Pressure:: 190/80 Outcomes/Goals: Able to verbalize/achieve optimal blood pressure <130/80, Incorporates diet changes & exercise for blood pressure control by DC Interventions/plan: Instruct on optimal blood pressure, hypertension & medications, Instruct on effects of sodium, alcohol, stress, exercise &hypertension 30 day Reassessments:: Progressing - Tobacco Cessation Referral Smoking Cessation Referral:: No Individual Education/Counseling:: No Education Schedule Given:: Yes Psychosocial - 60-Day Assess - VIsit Date of Eval: 01/10/20 Session #:: 19 Not Applicable: Yes History of previous Mental disease:: No - Target Goals Target Goals: Assess presence or absence of depression. Using a valid screening tool, maximizes coping skills. Positive support system - Psychosocial Test Tool Used:: Collect.it QOL Cardiac, PHQ-9 Questionnaire phq-9 Severity: Severity. 1-4 Minimal Depression. 5-9 Mild Depression. 10-14 Moderate Depression. 15-19 Moderately Sever Depression. 20-27 Severe Depression. Rule: - Outcomes/Goals: See list Psychosocial Outcomes/Goals:: ID's personal stressors & 2 strategies to manage stress by discharge - Intervention/Plan: See List Interventions/Plan:: Assess stressors,coping strategies & signs of derpression on admission, Instruct/assist pt to develop coping & personal stress Mgt strategies, Instruct patient to recognize signs & symptoms of depression, Instruct patient to recog - 30-day Reassessments: 30 day Reassessments:: Progressing Patient Health Questionnaire 60-Day Re-eval Assessment 1. Little interest or pleasure in doing things: Not at all 2. Feeling down, depressed, or hopeless: Not at all 3. Trouble falling or staying asleep, or sleeping too much: More than half the days 4. Feeling tired or having little energy: Several days 5. Poor appetite or overeating: Not at all 6. Feeling bad about yourself -- or that you are a failure or have let yourself or your family down: Not at all 7. Trouble concentrating on things, such as reading the newspaper or watching television: Several days 8. Moving or speaking so slowly that other people could have noticed. Or the opposite - being so fidgety or restless that you have been moving around a lot more than usual: Not at all 9. Thoughts that you would be better off , or of hurting yourself in some way: Not at all How difficult have these problems made it for you to do your work, take care of things at home, or get along with other people?: Not difficult at all Total Score: 4 Self-Efficacy 60-Day Re-eval Assessment We would like to know how confident you are in doing certain activities. Please select your confidence level for:: Select your confidence level for the following using the scale 1-10 where 1 is not at all confident and 10 is totally confident. Your score is the average of all 6 responses. Fatigue: How confident are you that you can keep the fatigue caused by your disease from interfering with the things you want to do? Select Number: 6 Physical Discomfort or Pain: How confident are you that you can keep the physical discomfort or pain of your disease from interfering with the things you want to do? Select Number: 7 Emotional Distress: How confident are you that you can keep the emotional distress caused by your disease from interfering with the things you want to do? Select Number: 9 Other Symptoms or Health Problems: How confident are you that you can keep other symptoms or health problems from interfering with the things you want to do? Select Number: 7 Different Tasks and Activities: How confident are you that you can do the different tasks and activities needed to manage your health condition so as to reduce your need to see a doctor? Select Number: 6 Medication: How confident are you that you can do things other than just taking medication to reduce how much your illness affects your everyday life? Select Number: 8 Total Score:: 7
[2020-01-10 08:52] VITALS: BP 124/50; BP 190/80; BMI 46.1
== END 2020-01-29 23:59 ==
LOC: CR 15:15
PROVIDERS: Family Provider Internal Medicine; PCP Internal Medicine; Referring Provider Internal Medicine Cardiovascular Disease; Visit Provider Internal Medicine Cardiovascular Disease
DX: I25.10 Atherosclerotic heart disease of native coronary artery without angina pectoris (principal); Z95.5 Presence of coronary angioplasty implant and graft
CPT/HCPCS: 93798

== ENCOUNTER 2020-02-08 11:41 | Emergency (ER) | payer MEDICARE, OTHER, SELFPAY ==
[2019-11-19 13:47] VITALS: BMI 46.3
[2020-02-07 08:24] VITALS: BMI 45.7
[2020-02-08 11:41] VITALS: BP 165/77; PULSE 57; RESP 16; TEMP 36.6; O2SAT 99; BMI 45.6
--- NOTE | 2020-02-08 12:14 | ED.DCSUM_ITS ---
History of Present Illness Chief Complaint: Nosebleed Informant: Patient Onset: Today Current Severity: Mild Maximum Severity: Moderate Narrative: Patient presents with right-sided epistaxis that started around 930 this m orning. She is currently on Coumadin. INR was 3.2 last Friday. He denies recent URI symptoms. No facial trauma. 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 Successful PTCA/LLUVIA mid LCX with a 3.0 x 16 Promus Synergy 10/25/2019 per [facility] @ [facility] Past Medical History - Allergies and Home Meds Allergies/Adverse Reactions: Allergies adhesive Allergy (Verified 02/08/20 11:43) Rash amoxicillin [Amoxicillin] Allergy (Verified 02/08/20 11:43) Rash ampicillin Allergy (Verified 02/08/20 11:43) Rash cephalexin monohydrate [From Keflex] Allergy (Verified 02/08/20 11:43) Rash Penicillins Allergy (Verified 02/08/20 11:43) Rash Sulfa (Sulfonamide Antibiotics) Allergy (Verified 02/08/20 11:43) Rash Primary Care Physician: Earlene Rosario MD [Primary Care Provider] - Prior records reviewed: Yes Surgical History: hysterectomy, tonsillectomy, - Smoking Status: Former smoker - Family History Maternal Family History: Family History (Last Reviewed 11/17/19 @ 11:19 by Minerva Dos Santos) Father CAD (coronary artery disease) Mother CVA (cerebral vascular accident) Hypertension Family History: Reports: - Additional Family History: Heart disease Paternal Family History: Family History (Last Reviewed 11/17/19 @ 11:19 by Minerva Dos Santos) Father CAD (coronary artery disease) Mother CVA (cerebral vascular accident) Hypertension Family History: Reports: Diabetes, Heart Disease, Hypertension, Stroke Review of Systems General: Denies: Chills, Fever Eyes: Denies: Visual changes - bilaterally ENT: Reports: - - Epistaxis right side. Denies: Bilateral ear pain Cardiovascular: Denies: Chest pain Respiratory: Denies: Dyspnea, Cough Gastrointestinal: Denies: Abdominal pain, Nausea, Vomiting, Diarrhea Genitourinary: Denies: Dysuria Musculoskeletal: Denies: Extremity Pain Skin: Denies: Rash Neurological: Denies: Headache Allergy: Denies: Uticaria Physical Exam Vital Signs/Narrative: Vital Signs Temp Pulse Resp BP Pulse Ox 02/08/20 11:41 97.8 F 57 L 16 165/77 H 99 Inital Vital Signs reviewed: Yes General: Well nourished, Well developed Head: Normocephalic ENT: Moist mucous membranes, TM's clear, - - Nasal clamp in place. Neck: Supple Cardiovascular: Regular rate, Regular rhythm Respiratory: No distress, CTA bilaterally Abdomen: Soft, Nontender Back: Nontender Extremities: Nontender Skin: Normal color, No rash Neurological: Alert, Oriented x3 Psychological: Normal affect Diagnostic/Tx/Re-eval Laboratory Results 02/08/20 12:30 PT 22.9 H INR 2.0 - Medical Decision Making Afrin and Cetacaine were applied to the right nare. She did have blood fairly high in the nasal cavity. No obvious focal source of bleeding noted. Patient was packed with Merocel. On repeat evaluation she had no further bleeding. She is able to get up and ambulate in the department without difficulty. INR is checked today and is 2.0. Patient will follow-up with ENT later this week. ED Disposition - Plan for ED Patient: Disposition: Home or Assisted Living Diagnosis: Nosebleed Instructions: Nosebleed Referrals: Jerel Flores MD [STAFF PHYSICIAN] - 3-5 Days
[2020-02-08] MEDS: Oxymetazoline 0.05% 1 SPRAY SPRAY.BTL 2 SPRAY NASAL (12:31)
[2020-02-08] MEDS: Tetracaine/Benzocaine/Butamben 1 APPLIC TOPICAL (12:31)
[2020-02-08 12:46] LABS: Prothrombin Time (Protime)PT. 22.9 SECONDS (11.7-14.9)
== END 2020-02-08 14:31 | disposition home or self-care (01) ==
PROVIDERS: Emergency Provider Emergency Medicine; PCP Internal Medicine
DX: R04.0 Epistaxis (principal); I10 Essential (primary) hypertension; I45.10 Unspecified right bundle-branch block; I25.10 Atherosclerotic heart disease of native coronary artery without angina pectoris; E11.9 Type 2 diabetes mellitus without complications; K21.9 Gastro-esophageal reflux disease without esophagitis; E03.9 Hypothyroidism, unspecified; E78.2 Mixed hyperlipidemia; Z86.711 Personal history of pulmonary embolism; Z95.5 Presence of coronary angioplasty implant and graft; Z79.01 Long term (current) use of 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s; Z79.82 Long term (current) use of aspirin; Z79.84 Long term (current) use of oral hypoglycemic drugs; Z79.02 Long term (current) use of antithrombotics/antiplatelets; Z79.899 Other long term (current) drug therapy; Z87.891 Personal history of nicotine dependence
CPT/HCPCS: 30901; 85610; 99282

== ENCOUNTER 2020-02-08 15:57 | Emergency (ER) | payer MEDICARE, OTHER, SELFPAY ==
[2020-02-07 08:24] VITALS: BMI 45.7
[2020-02-08 11:41] VITALS: BMI 45.6
[2020-02-08 15:58] VITALS: BP 158/93; PULSE 60; RESP 18; TEMP 36.6; O2SAT 96; BMI 44.1
--- NOTE | 2020-02-08 17:01 | ED.DCSUM_ITS ---
- ER Visit Summary Date of Service: 02/08/20 Chief Complaint: [Nosebleed] History of Present Illness: The patient is a 74 F presents to the emergency department complaint of a nosebleed that started around 8:45 AM this morning. Patient states that she initially picked at her nose. Patient was seen in the emergency department and had a Merocel nasal sponge placed to the right side of the nose. Patient states that she was observed in the emergency department and she had no further bleeding so she was discharged to home. She is on Coumadin and her INR was checked this morning. Patient states that she went home and she kept having the dab underneath the Merocel sponge and there was just small amount of blood noted from it so she became concerned and came back to be evaluated. On arrival to the ER patient did cough and brought up some clot from the back of her throat. She otherwise denies complaints. Patient made follow- up appointment with ENT in 3 days. [] Physical Examination: [HEENT-PERRLA, EOMI. Cranial nerves II through XII grossly intact. TMs clear. Mucous membranes moist. No adenopathy. Evaluation of the right side of the nose does reveal a Merocel sponge in place with no active bleeding noted. The sponge is not saturated. There is no blood down the oropharynx. Cardiovascular-regular rate and rhythm without murmur or ectopy Lungs-clear to auscultation, chest wall stable without crepitus or subcu emphysema Abdomen-normoactive bowel sounds, soft, nontender, no rebound or rigidity, no peritoneal signs. Extremities-intact ?4, normal range of motion, normal pulses, atraumatic] Test Results: [None indicated] Emergency Department Course and Treatment: At this point I reassured patient I felt everything looked well and do not see any evidence of active bleeding. I explained to her that it is normal for the blood to saturate into the sponge and just use a small amount. I see nothing concerning at this time. [] Treatment Plan: [To keep her appointment with ENT. Patient advised to return if persistent heavy bleeding or bleeding on the back of her throat or condition should worsen anyway.] Disposition: [Discharged home in stable condition] Impression: [Epistaxis right sided-resolved] This note was generated with [employer] dictation software. It may contain incorrect words, spelling, and punctuation that were not noted in review of the chart prior to signing ED Disposition - Plan for ED Patient: Referrals: Earlene Rosario MD [Primary Care Provider] -
--- NOTE | 2020-02-08 17:04 | ED.DEP ---
ED Disposition - Plan for ED Patient: Instructions: Nosebleed Referrals: Earlene Rosario MD [Primary Care Provider] - Jerel Flores MD [STAFF PHYSICIAN] - 3-5 Days
== END 2020-02-08 17:20 | disposition home or self-care (01) ==
LOC: ED 16:51
PROVIDERS: Emergency Provider Emergency Medicine; PCP Internal Medicine
DX: R04.0 Epistaxis (principal); I10 Essential (primary) hypertension; I25.10 Atherosclerotic heart disease of native coronary artery without angina pectoris; E11.9 Type 2 diabetes mellitus without complications; E78.00 Pure hypercholesterolemia, unspecified; I45.10 Unspecified right bundle-branch block; K21.9 Gastro-esophageal reflux disease without esophagitis; E03.9 Hypothyroidism, unspecified; E78.2 Mixed hyperlipidemia; Z86.711 Personal history of pulmonary embolism; Z95.5 Presence of coronary angioplasty implant and graft; Z79.82 Long term (current) use of aspirin; Z79.01 Long term (current) use of 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s; Z79.02 Long term (current) use of antithrombotics/antiplatelets; Z79.84 Long term (current) use of oral hypoglycemic drugs; Z79.899 Other long term (current) drug therapy; Z87.891 Personal history of nicotine dependence
CPT/HCPCS: 30901; 85610; 99282

== ENCOUNTER → 2020-02-09 08:04 | Outpatient (CLI) | payer MEDICARE, OTHER, SELFPAY ==
[2020-02-07 08:24] VITALS: BMI 45.7
[2020-02-08 15:58] VITALS: BMI 44.1
[2020-02-09 09:48] LABS: AST(SGOT) 17 U/L (15-37); Alanine Aminotransfer ALT/SGPT 30 U/L (13-56); Albumin, Serum 4.1 g/dL (3.2-5.0); Alkaline Phosphatase 51 U/L (45-117); Bilirubin, Direct 0.19 mg/dL (0.00-0.30); Cholesterol 185 mg/dL (200); Globulin 3.8 g/dL (2.2-4.2); High Density Lipoprotein 58 mg/dL; Protein, Total 7.9 g/dL (6.4-8.2); Triglycerides 123 mg/dL; Very Low Density Lipoprotein 25 mg/dL (5-40)
== END ==
PROVIDERS: PCP Internal Medicine; Referring Provider Internal Medicine Cardiovascular Disease; Visit Provider Internal Medicine Cardiovascular Disease
DX: E78.00 Pure hypercholesterolemia, unspecified (principal); Z71.3 Dietary counseling and surveillance; E66.01 Morbid (severe) obesity due to excess calories; Z68.41 Body mass index [BMI] 40.0-44.9, adult; E11.9 Type 2 diabetes mellitus without complications
CPT/HCPCS: 36415; 80061; 80076; 97803

== ENCOUNTER 2020-02-17 13:30 | Outpatient (RCR) | payer MEDICARE, OTHER, SELFPAY ==
[2019-11-19 13:47] VITALS: BMI 46.3
[2020-01-10 08:52] VITALS: BMI 46.1
[2020-02-07 08:24] VITALS: BMI 45.7
== END 2020-02-29 23:59 ==
LOC: DC 13:30
PROVIDERS: Family Provider Internal Medicine; PCP Internal Medicine; Visit Provider Internal Medicine Cardiovascular Disease
DX: Z71.3 Dietary counseling and surveillance (principal); E11.9 Type 2 diabetes mellitus without complications; E66.01 Morbid (severe) obesity due to excess calories; Z68.42 Body mass index [BMI] 45.0-49.9, adult
CPT/HCPCS: 97803; G0108; G0109

== ENCOUNTER 2020-02-21 15:15 | Outpatient (RCR) | payer MEDICARE, OTHER, SELFPAY ==
[2019-11-19 13:47] VITALS: BMI 46.3
[2020-01-10 08:52] VITALS: BMI 46.1
[2020-01-30 00:42] VITALS: BP 124/50; BP 190/80
--- NOTE | 2020-02-07 08:16 | CR.ITP_ITS ---
Diagnosis - General Information Admitting Diagnosis: PCI w/coronary stenting Personal Learning Style:: Audio/Visual, Written Barriers to Learning: Vision Impairment Stage of change r/t lifestyle modifications:: Action Gave educational material for:: Treating Heart Disease, Emotions & Heart Disease, Stress Management & Relaxation, Sleep Disorders & Heart Disease, How The Heart Works, What it means to have Heart Disease, How Coronary Artery Disease is Diagnosed, Heart Procedures, What Heart Medications Do, Risk Factors & Modifications, Living an Active Life, Nutrition - Education/Goals Individual Counseling: Initial Assessment: Abnormal Cholesterol Levels, High Blood Pressure, Overweight/Obesity, Diabetes, Metabolic Syndrome (as evidenced by 3 of 5 A-E below) Cardiac Rehabilitation Goals: 1. Maintain the individual as the primary focus of care. 2. To improve the patient's quality of life. 3. Identification of cardiac risk factors and provide cardiac risk factor management. 4. Enhance the psychosocial status of the patient. 5. Reconditioning enough to allow the patient to resume customary activities. 6. Control symptoms of cardiac disease Personal Goals: Initial Assessment: Improve energy level - 4, Participate in home exercise program - 4, Improve knowledge of cardiac disease - 4, Improve muscle strength and endurance - 4, Improve diet and eating habits (eat healthier) - 4, Control risk factors (learn risk factor modification) - 4 Scale for measuring improvement of personal goals: Enter appropriate number in Comments. 2 = Unchanged. 3 = Slightly Better. 4 = Moderate Improvement. 5 = Met my Goal - Diagnosis & Disease Process Outcomes/Goals: Pt IDs own risk factors & lifestyle modifications by Session 10, Verbalizes symptoms of angina & response by session 3., Pt independently manages Plan/Interventions: Assist Pt to ID & engage in lifestyle modification to reduce CVD risk, Instruct on individual risk factors, Review symptoms of angina & emergency actions, Review secondary diagnosis & identify educational needs. 30 day Reassessments:: Progressing 30 day Reassessments:: Progressing 30 day Reassessments:: Progressing - Safety Referral to Physical Therapy: No Referral to [facility] Case Management: No Fall Risk Assessed:: Yes Assistive Devices:: None Exercise - 90-day Assessment - Visit Date of Eval: 02/07/20 Session #:: 31 - Physician Prescribed Exercise Modalities: Treadmill, Airdyne, NuStep Frequency: 3x/week for 12 weeks [36 sessions] Intensity: 60-80% of age predicted maximum heart rate reserve Current METSs:: 3.7 unchanged due to physical limitations Target Heart Rate:: 96-126 Current RPE:: 12-13 Maximum Excercise HR:: 120 Resting Blood Pressure: 166/70 - remains elevated Maximum Exercise Blood Pressure: 152/60 EKG Type: Sinus bradycardia to sinus rhythm with depressed ST during exercise, PACs. - Outcomes & Goals Goals:: Verbalizes understanding of THR, RPE & goal METS by session 6, Documents in home exercise log/reports 30 min aerobic 5 day/wk by DC, Demonstrates accurate pulse taking by DC - Intervention & Plan Exercise Program Goals: Instruct on personal THR & RPE, Instruct on MET level & personal MET goal, Show patient to take own pulse /validate performance until accurate, Instruct on home exercise - 30-day Reassessments 30 day Reassessments:: Progressing - Physical Activity Home Exercise Physical Activity - Home Exercise: Safe Exercise, Warm-up, Self-monitoring, Cool-Down, Home Exercise > 30 min Daily, Sitting Time <3 hours/daily - Outcomes & Goals Outcomes/Goals: Demonstrates correct Warm-up/exercise Cool-Down (S3) if = 2.5 METs, Verbalizes symptoms of exercise intolerance by Session 3 (S3), Demonstrate safe equipment use (S3) & follows exercise prescrition (6) - Intervention & Plan Plan/Intervention: Instruct warm-up & cool-down if exercising at > 2 METs, Instruct on symptoms of exercise intolerance & actions to take, Instruct & monitor on saf, Assess intial functional capacity & safety risk - 30-day Reassessments 30 day Reassessments:: Progressing Nutrition - 90-Day Assessment - Program Goals Nutrition Program Goals: LDL <100 optimal. 100 - 129 Near optimal. 130 - 159 Borderline High. 160 - 189 High. Total Cholesterol <200 desirable. 200 - 239 Borderline High. >/= 240 High. HDL < 40 Low >/=60 High. Triglycerides <150 desirable. <199 optimal. VlDL 5 - 40. HgbA1C <7%. BMI <25 Patient has diagnosis of Hyperlipidemia (ICD E78)?: Yes - Visit Date of Assessment:: 02/07/20 - no recent lipds since evaluation - Cholesterol/Lipids Determine presence & major risk factors that modify LDL goal: Hypertension or hypertensive medication, Age men > 45 years; women >/= 55 years Outcomes/Goals: Pt IDs own risk factors & lifestyle modifications by Session 10, Verbalizes symptoms of angina & response by session 3., Pt independently manages Intervention/Plan: Instruct on personal lipid levels & lipid goals/NCEP guidelines, Instruct on cholesterol Referral to dietitian:: Yes 30-day Reassessments:: Progressing - Diabetes (Other Core Measures) Diabetes Type: Not Applicable - Weight Mgt (Other Care) Not Applicable: No Height: 5 ft 4 in Weight:: 266 lb 8 oz BMI: 45.7 Diagnosis Overweight/Obesity BMI> 30% ICD-10 E66: Yes Diagnosis High BMI/Morbid Obesity BMI> 35% ICD-10 Z68: Yes Outcomes/Goals: Pt sets, maintains & shows weight loss goal & trend during rehab Intervention/Plan: Instruct on ideal BMI & set weight loss goal w/patient, Assist pt to ID & incorporate diet changes for weight loss by S9, Refer to Structured Weight Loss program as appropriate, Encourage goal of using 250- 300dcal per session for weight loss 30 day Reassessments:: Progressing - Healthy Eating Habits Will attend diet classes:: Yes Outcomes/Goals:: Consume diet rich in vegs,fruits,whole grain/high fiber,fish,lean meat, Limit sat/trans fats,cholesterol & added salts & sugars Intervention/Plan:: Assess current eating habits 30-day Reassessments:: Progressing - Education Gave educational materials for:: Healthy eating Medical- 90-Day Assessment - Visit Date of Eval: 02/07/20 Session #:: 31 - Medication Compliance Preventative Medication(s):: Aspirin, Clopidogrel/P2Y12 inhibit, Statin/lipid, Beta alex, Warfarin/Coumadin H/O mental health issues: depression, anxiety, or addiction?: No Doesn?t believe in the benefits of treatment?: No Believes medications are unnecessary or harmful?: No Has a concern about medication side effects?: No Expresses concern over the cost of medications?: No Outcomes/Goals: Verbalizes medications,desired effect & common side effects @ DC, Pt self-reports following medication regimen, Keeps card in wallet w/medications listed by DC Interventions/plans: Instruct on medication effects & side effects, Review medication list w/patient every two weeks, Instruct importance of taking meds as ordered & assist problem solving 30-day Reassessments:: Progressing - Tobacco Use Tobacco Use: Non-smoker - Hypertension Hypertension Diagnosis:: Hypertension ICD-10 I10 Resting Blood Pressure:: 152/60 [place] [employer] Hypertension Guidelines: [place] [employer] Hypertension Guidelines. Normal BP Less than 120/80. Elevated BP 120/80. Hypertension Stage 1: BP 130-139/80-89. Hypertesnion Stage 2: BP 140 or higher/90 or higher. Hypertension Crisis: BP higher than 180/120 Peak Exercise Blood Pressure:: 160/90 Outcomes/Goals: Able to verbalize/achieve optimal blood pressure <130/80, Incor porates diet changes & exercise for blood pressure control by DC Interventions/plan: Instruct on optimal blood pressure, hypertension & medications, Instruct on effects of sodium, alcohol, stress, exercise &hypertension 30 day Reassessments:: Progressing - Tobacco Cessation Referral Smoking Cessation Referral:: No Individual Education/Counseling:: No Education Schedule Given:: Yes Psychosocial - 90-Day Assess - VIsit Date of Eval: 02/07/20 Session #:: 31 Not Applicable: Yes History of previous Mental disease:: No - Target Goals Target Goals: Assess presence or absence of depression. Using a valid screening tool, maximizes coping skills. Positive support system - Psychosocial Test Tool Used:: Ratna Perales QOL Cardiac, PHQ-9 Questionnaire phq-9 Severity: Severity. 1-4 Minimal Depression. 5-9 Mild Depression. 10-14 Moderate Depression. 15-19 Moderately Sever Depression. 20-27 Severe Depression. Rule: - Referral to Behavioral Health PS - Interventions: Yes Attend Stress Management Classes, No Referral to Behavioral Health if PHQ-9 score >9:, No Referral to [facility], No Referral to Physician if PHQ-9 if score is 5-9: - Outcomes/Goals: See list Psychosocial Outcomes/Goals:: ID's personal stressors & 2 strategies to manage stress by discharge - Intervention/Plan: See List Interventions/Plan:: Assess stressors,coping strategies & signs of derpression on admission, Instruct/assist pt to develop coping & personal stress Mgt strategies, Instruct patient to recognize signs & symptoms of depression, Instruct patient to recog - 30-day Reassessments: 30 day Reassessments:: Progressing Patient Health Questionnaire 90-Day Re-eval Assessment 1. Little interest or pleasure in doing things: Not at all 2. Feeling down, depressed, or hopeless: Not at all 3. Trouble falling or staying asleep, or sleeping too much: Not at all 4. Feeling tired or having little energy: Not at all 5. Poor appetite or overeating: Not at all 6. Feeling bad about yourself -- or that you are a failure or have let yourself or your family down: Not at all 7. Trouble concentrating on things, such as reading the newspaper or watching television: Not at all 8. Moving or speaking so slowly that other people could have noticed. Or the opposite - being so fidgety or restless that you have been moving around a lot more than usual: Not at all 9. Thoughts that you would be better off , or of hurting yourself in some way: Not at all Total Score: 0 Self-Efficacy 90-Day Re-eval Assessment We would like to know how confident you are in doing certain activities. Please select your confidence level for:: Select your confidence level for the following using the scale 1-10 where 1 is not at all confident and 10 is totally confident. Your score is the average of all 6 responses. Fatigue: How confident are you that you can keep the fatigue caused by your disease from interfering with the things you want to do? Select Number: 9 Physical Discomfort or Pain: How confident are you that you can keep the physical discomfort or pain of your disease from interfering with the things you want to do? Select Number: 10 Emotional Distress: How confident are you that you can keep the emotional distress caused by your disease from interfering with the things you want to do? Select Number: 10 Other Symptoms or Health Problems: How confident are you that you can keep other symptoms or health problems from interfering with the things you want to do? Select Number: 10 Different Tasks and Activities: How confident are you that you can do the different tasks and activities needed to manage your health condition so as to reduce your need to see a doctor? Select Number: 10 Medication: How confident are you that you can do things other than just taking medication to reduce how much your illness affects your everyday life? Select Number: 10 Total Score:: 9
[2020-02-07 08:24] VITALS: BP 152/60; BP 160/90; BP 166/70; BMI 45.7
== END 2020-02-29 23:59 ==
LOC: CR 15:15
PROVIDERS: Family Provider Internal Medicine; PCP Internal Medicine; Referring Provider Internal Medicine Cardiovascular Disease; Visit Provider Internal Medicine Cardiovascular Disease
DX: I25.10 Atherosclerotic heart disease of native coronary artery without angina pectoris (principal); Z95.5 Presence of coronary angioplasty implant and graft
CPT/HCPCS: 93798

== ENCOUNTER → 2020-02-24 | Outpatient (CLI) | payer MEDICARE, OTHER, SELFPAY ==
[2020-02-07 08:24] VITALS: BMI 45.7
[2020-02-08 15:58] VITALS: BMI 44.1
== END | disposition home or self-care (01) ==
LOC: LABSPEC 11:17
PROVIDERS: PCP Internal Medicine; Referring Provider Internal Medicine; Visit Provider Internal Medicine
DX: I26.99 Other pulmonary embolism without acute cor pulmonale (principal); Z86.718 Personal history of other venous thrombosis and embolism

== ENCOUNTER 2020-05-25 09:30 | Outpatient (RCR) | payer MEDICARE, OTHER, SELFPAY ==
[2020-02-07 08:24] VITALS: BMI 45.7
== END 2020-05-30 23:59 ==
LOC: DC 09:30
PROVIDERS: Family Provider Internal Medicine; PCP Internal Medicine; Visit Provider Internal Medicine Cardiovascular Disease
DX: Z71.3 Dietary counseling and surveillance (principal); E11.9 Type 2 diabetes mellitus without complications; E66.01 Morbid (severe) obesity due to excess calories; Z68.42 Body mass index [BMI] 45.0-49.9, adult
CPT/HCPCS: G0109

== ENCOUNTER 2020-06-07 09:32 | Outpatient (RCR) | payer MEDICARE, OTHER, SELFPAY ==
[2020-02-07 08:24] VITALS: BMI 45.7
== END 2020-06-30 23:59 ==
LOC: NS 09:32
PROVIDERS: Family Provider Internal Medicine; PCP Internal Medicine; Visit Provider Internal Medicine Cardiovascular Disease
DX: Z71.3 Dietary counseling and surveillance (principal); E11.9 Type 2 diabetes mellitus without complications; E66.01 Morbid (severe) obesity due to excess calories; Z68.42 Body mass index [BMI] 45.0-49.9, adult
CPT/HCPCS: 97803

== ENCOUNTER 2020-08-03 10:38 | Outpatient (RCR) | payer MEDICARE, OTHER, SELFPAY ==
[2020-02-07 08:24] VITALS: BMI 45.7
[2020-07-10 10:24] VITALS: BMI 43.9
== END 2020-08-03 23:59 | disposition home or self-care (01) ==
LOC: NS 10:38
PROVIDERS: Family Provider Internal Medicine; PCP Internal Medicine; Visit Provider Internal Medicine Cardiovascular Disease
DX: Z71.3 Dietary counseling and surveillance (principal); E11.9 Type 2 diabetes mellitus without complications; E66.01 Morbid (severe) obesity due to excess calories; Z68.42 Body mass index [BMI] 45.0-49.9, adult
CPT/HCPCS: G0109

== ENCOUNTER 2020-10-12 22:05 | Emergency (ER) | payer MEDICARE, OTHER, SELFPAY ==
[2020-02-07 08:24] VITALS: BMI 45.7
[2020-07-10 10:24] VITALS: BMI 43.9
[2020-10-12 22:06] VITALS: BP 205/78; PULSE 63; RESP 16; TEMP 36.1; O2SAT 99; BMI 44.1
--- NOTE | 2020-10-12 22:26 | ED.VIS.GEN ---
History of Present Illness Chief Complaint: Nosebleed Informant: Patient Onset: Hours - couple Context: Sudden Onset - dealing w/ sinus drainage, accidentally scraped nose w/ fingernail Timing: Continuous Quality: oozing blood Location: R naris Current Severity: Mild Maximum Severity: Moderate Worsened by: nothing Relieved by: holding pressure Associated Symptoms: sinus congestion she gets seasonally Narrative: Right-sided nosebleed that is better with holding pressure, patient denies any fevers, chills, dyspnea, chest pain, lightheadedness, syncope, near syncope. Has had these before. She is on warfarin. She was subtherapeutic less than 1 week ago at 1.8 INR, her dose was increased every other day and she is due to have another INR check next week. - Past Medical History (1) Atherosclerotic heart disease of [place] coronary artery without angina pectoris Status: Chronic (2) DM2 (diabetes mellitus, type 2) Status: Chronic (3) Essential hypertension Status: Chronic (4) GERD (gastroesophageal reflux disease) Status: Chronic (5) Hypothyroidism Status: Chronic (6) Mixed hyperlipidemia Status: Chronic (7) Presence 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 Status: Chronic Comment: PTCA/LLUVIA to LAD 10/06/09 @ [facility] 10/25/2019:Single vessel CAD of the mid LCX Non obstructive coronary arteries; Widely patent mid LAD stents. Successful PTCA/LLUVIA mid LCX with a 3.0 x 16 Promus Synergy 10/25/2019 per NALLE[facility] @ [facility] (8) Pulmonary embolism Status: Chronic Past Medical History - Allergies and Home Meds Allergies/Adverse Reactions: Allergies adhesive Allergy (Verified 10/12/20 22:08) Rash amoxicillin [Amoxicillin] Allergy (Verified 10/12/20 22:08) Rash ampicillin Allergy (Verified 10/12/20 22:08) Rash cephalexin monohydrate [From Keflex] Allergy (Verified 10/12/20 22:08) Rash Penicillins Allergy (Verified 10/12/20 22:08) Rash Sulfa (Sulfonamide Antibiotics) Allergy (Verified 10/12/20 22:08) Rash Primary Care Physician: Rick Ricardo MD [STAFF PHYSICIAN] - (2-3 days -- call for appt; may return to ER if ENT not avail when removal recommended) Surgical History: hysterectomy, tonsillectomy Smoking Status: Former smoker - Family History Maternal Family History: Family History (Last Reviewed 07/10/20 @ 13:24 by Minerva Dos Santos) Father CAD (coronary artery disease) Mother CVA (cerebral vascular accident) Hypertension Family History: Reports: - Additional Family History: Heart disease Paternal Family History: Family History (Last Reviewed 07/10/20 @ 13:24 by Minerva Dos Santos) Father CAD (coronary artery disease) Mother CVA (cerebral vascular accident) Hypertension Family History: Reports: Diabetes, Heart Disease, Hypertension, Stroke Review of Systems General: Denies: Chills, Fever, Sweats ENT: Reports: Rhinorrhea - Right nosebleed, - - Swallowing small amounts of blood. Denies: Bilateral ear pain, Sore throat Cardiovascular: Denies: Chest pain Respiratory: Denies: Dyspnea Gastrointestinal: Denies: Nausea, Vomiting Neurological: Denies: Headache, Weakness, Numbness Physical Exam Vital Signs/Narrative: Vital Signs Temp Pulse Resp BP Pulse Ox 10/12/20 22:06 97 F L 63 16 205/78 H 99 Inital Vital Signs reviewed: Yes General: Well nourished, Well developed, Obese, No Acute Distress Head: Normocephalic, Atraumatic Eyes: Perrl, EOMI ENT: Moist mucous membranes, - - Tissue with blood and large clot removed from right naris, no active bleeding but friable area at Kesselbach plexus anteriorly with likely source of recent bleeding, no blood present in the left naris. Small amount of blood in the posterior oropharynx without active bleeding.. Negative for: Sinus tenderness Neck: Supple, Nontender Respiratory: No distress Skin: Normal color, No rash, No Trauma Neurological: Alert, Oriented x3, Cranial nerves II-XII grossly intact, Normal Strength, Normal Sensation Psychological: Normal affect, Normal Mood Diagnostic/Tx/Re-eval - Medical Decision Making A pledget soaked in Haleigh solution was placed in the right naris and the patient was observed, bleeding was controlled but after I remove the pledget it continued to bleed. See the procedure note for nasal packing that was performed successfully. She will follow up with ENT for removal, or return to the ER. Of note she just had her INR checked and it was 1.8, I do not think we need to recheck it now she has scheduled to have a recheck this next week. Her blood pressure was very high when she was here, she takes atenolol 25 mg daily and she took it this morning without missing any doses recently. She was still in the 200 range after fixing her nosebleed, so she was given clonidine 0.2mg and observed a short time. We rechecked it, it went down to the 170's. She was advised to follow up closely. Procedures Procedure(s): Anterior nasal packing: After local anesthetizing with Melia mix, there was persistent oozing/bleeding from an area posterior enough at the septum that chemical cauterization would be very difficult, and impossible anyway since bleeding was still active. Therefore a 3.5 cm Merocel nasal packing was placed and inflated with water, and later more anesthetic. This resulted in good hemostasis. ED Disposition - Plan for ED Patient: Disposition: Home or Assisted Living Diagnosis: Acute anterior epistaxis, Episode of hypertension Instructions: ED Epistaxis Adult Referrals: Rick Ricardo MD [STAFF PHYSICIAN] - (2-3 days -- call for appt; may return to ER if ENT not avail when removal recommended) Additional Instructions: check your blood pressure if possible over the weekend. follow up with your primary doctor regarding your blood pressure.
[2020-10-12 23:55] VITALS: BP 208/71
[2020-10-13] MEDS: cloNIDine HCl 0.2 MG Tablet PO (00:02)
[2020-10-13 01:02] VITALS: BP 175/69; PULSE 69; RESP 18; O2SAT 96
== END 2020-10-13 01:03 | disposition home or self-care (01) ==
PROVIDERS: Emergency Provider Emergency Medicine; PCP Internal Medicine
DX: R04.0 Epistaxis (principal); I10 Essential (primary) hypertension; E66.9 Obesity, unspecified; I25.10 Atherosclerotic heart disease of native coronary artery without angina pectoris; E11.9 Type 2 diabetes mellitus without complications; E03.9 Hypothyroidism, unspecified; E78.2 Mixed hyperlipidemia; K21.9 Gastro-esophageal reflux disease without esophagitis; Z86.711 Personal history of pulmonary embolism; Z95.5 Presence of coronary angioplasty implant and graft; Z79.01 Long term (current) use of 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s; Z79.82 Long term (current) use of aspirin; Z79.02 Long term (current) use of antithrombotics/antiplatelets; Z79.84 Long term (current) use of oral hypoglycemic drugs; Z79.899 Other long term (current) drug therapy; Z87.891 Personal history of nicotine dependence
CPT/HCPCS: 30901; 99282

== ENCOUNTER → 2021-10-24 07:24 | Outpatient (CLI) | payer MEDICARE, OTHER, SELFPAY ==
[2020-02-07 08:24] VITALS: BMI 45.7
[2021-10-24 09:24] LABS: AST(SGOT) 18 U/L (15-37); Alanine Aminotransfer ALT/SGPT 24 U/L (13-56); Albumin, Serum 3.6 g/dL (3.2-5.0); Alkaline Phosphatase 48 U/L (45-117); Bilirubin, Direct 0.18 mg/dL (0.00-0.30); Cholesterol 176 mg/dL (200); High Density Lipoprotein 60 mg/dL; Protein, Total 7.6 g/dL (6.4-8.2); Triglycerides 85 mg/dL; Very Low Density Lipoprotein 17 mg/dL (5-40)
== END ==
PROVIDERS: PCP Internal Medicine; Referring Provider Internal Medicine Cardiovascular Disease; Visit Provider Internal Medicine Cardiovascular Disease
DX: I25.10 Atherosclerotic heart disease of native coronary artery without angina pectoris (principal); Z95.5 Presence of coronary angioplasty implant and graft; E78.2 Mixed hyperlipidemia
CPT/HCPCS: 36415; 80061; 80076

== ENCOUNTER 2021-12-14 10:57 | Outpatient (CLI) | payer MEDICARE, OTHER, SELFPAY ==
[2020-02-07 08:24] VITALS: BMI 45.7
[2021-12-14 11:15] LABS: International Normalized Ratio 2.7; Prothrombin Time (Protime)PT. 27.7 SECONDS (11.7-14.9)
== END 2021-12-14 23:59 | disposition short-term general hospital (02) ==
LOC: LABSPEC 11:00
PROVIDERS: PCP Internal Medicine; Visit Provider Internal Medicine
DX: Z86.711 Personal history of pulmonary embolism (principal); Z86.718 Personal history of other venous thrombosis and embolism
CPT/HCPCS: 85610

== ENCOUNTER → 2022-04-30 | Outpatient (CLI) | payer MEDICARE, OTHER, SELFPAY ==
[2020-02-07 08:24] VITALS: BMI 45.7
[2022-04-30 09:09] LABS: AST(SGOT) 18 U/L (15-37); Alanine Aminotransfer ALT/SGPT 25 U/L (13-56); Albumin, Serum 3.7 g/dL (3.2-5.0); Alkaline Phosphatase 43 U/L (45-117); Cholesterol 174 mg/dL (200); Globulin 3.5 g/dL (2.2-4.2); High Density Lipoprotein 57 mg/dL; Protein, Total 7.2 g/dL (6.4-8.2); Triglycerides 112 mg/dL; Very Low Density Lipoprotein 22 mg/dL (5-40)
== END | disposition home or self-care (01) ==
LOC: LAB 08:13
PROVIDERS: PCP Internal Medicine; Referring Provider Physician Assistant Medical; Visit Provider Physician Assistant Medical
DX: E78.00 Pure hypercholesterolemia, unspecified (principal); E78.2 Mixed hyperlipidemia
CPT/HCPCS: 36415; 80061; 80076

== ENCOUNTER → 2022-08-13 | Outpatient (CLI) | payer MEDICARE, OTHER, SELFPAY ==
[2020-02-07 08:24] VITALS: BMI 45.7
[2022-08-13 10:47] LABS: International Normalized Ratio 2.2; Prothrombin Time (Protime)PT. 24.3 SECONDS (11.7-14.9)
== END | disposition home or self-care (01) ==
LOC: LABSPEC 10:33
PROVIDERS: PCP Internal Medicine; Referring Provider Internal Medicine; Visit Provider Internal Medicine
DX: Z86.711 Personal history of pulmonary embolism (principal); Z86.718 Personal history of other venous thrombosis and embolism
CPT/HCPCS: 85610

== ENCOUNTER 2022-10-21 07:21 | Outpatient (CLI) | payer MEDICARE, OTHER, SELFPAY ==
[2020-02-07 08:24] VITALS: BMI 45.7
[2022-10-21 09:29] LABS: AST(SGOT) 17 U/L (15-37); Alanine Aminotransfer ALT/SGPT 26 U/L (13-56); Albumin, Serum 3.8 g/dL (3.2-5.0); Alkaline Phosphatase 43 U/L (45-117); Bilirubin, Direct 0.15 mg/dL (0.00-0.30); Cholesterol 186 mg/dL (200); High Density Lipoprotein 58 mg/dL; Protein, Total 7.8 g/dL (6.4-8.2); Triglycerides 113 mg/dL; Very Low Density Lipoprotein 23 mg/dL (5-40)
== END 2022-10-21 23:59 | disposition home or self-care (01) ==
PROVIDERS: PCP Internal Medicine; Referring Provider Physician Assistant Medical; Visit Provider Physician Assistant Medical
DX: E78.00 Pure hypercholesterolemia, unspecified (principal)
CPT/HCPCS: 36415; 80061; 80076

== ENCOUNTER 2023-03-05 13:57 | Emergency (ER) | payer MEDICARE, OTHER, SELFPAY ==
[2020-02-07 08:24] VITALS: BMI 45.7
[2023-03-05 13:58] VITALS: BP 159/89; BP 191/136; PULSE 72; RESP 18; TEMP 35.4; O2SAT 100
--- NOTE | 2023-03-05 15:20 | EDS_ITS ---
HPI HPI - Fall History of Present Illness Chief Complaint: Fall Occured/Mechanism Occurred: Today Mechanism/Context: Yes same level fall Usually ambulates: Without assistance Pain/Injury Location: Right thumb, bilateral knees Quality of Pain: Stabbing Worsened by: Movement Relieved by: Nothing Associated Symptoms Associated Symptoms: Negative for Parasthesias, Weakness, Loss of function, Inability to ambulate or Loss of consciousness Narrative Narrative: Patient presents after a fall today. Patient was carrying her trash cans from the road when a laurel of wind knocked her over. Patient denies any head injury or loss of consciousness. Patient admits to a laceration to her right thumb. Patient also admits to some pain in both knees but worse on the left. Patient denies any paresthesias or weakness. Patient is on Coumadin for pulmonary embolism. Patient states bleeding has been persistent. Patient denies any other injuries. 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 Mixed hyperlipidemia Obesity Post-menopausal Presence 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 (10/25/19) Pulmonary embolism (08/2017) RBBB (right bundle branch block) Thyroid disease Wears glasses Home Medications aspirin 81 mg chewable tablet 81 mg PO QHS 05/10/14 [History Last Taken 10/25/19] fosinopril 40 mg tablet 40 mg PO DAILY BP 05/10/14 [History Last Taken 10/25/19] levothyroxine 112 mcg tablet 112 mcg PO DAILY 05/10/14 [History Last Taken 10/25/19] multivitamin with folic acid 400 mcg tablet 1 tab PO DAILY 05/10/14 [History Last Taken 08/01/17 08:00] nitroglycerin 0.4 mg sublingual tablet 0.4 mg sublingual Q5M PRN Chest Pain 05/10/14 [History Last Taken Unknown] meclizine 25 mg tablet 25 mg PO TID PRN PRN Vertigo #20 tabs 10/22/17 [Rx Last Taken Unknown] fenofibrate 160 mg tablet 160 mg PO DAILY 09/14/19 [History Last Taken 10/25/19] magnesium oxide 400 mg (241.3 mg magnesium) tablet 800 mg PO BID 10/27/19 [History Last Taken Unknown] atenolol 25 mg tablet 25 mg PO DAILY 07/10/20 [History Last Taken Unknown] atorvastatin 40 mg tablet 40 mg PO QHS 07/10/20 [History Last Taken Unknown] hydrocortisone 2.5 % topical cream 1 applic topical BID PRN Itching 07/10/20 [History Last Taken Unknown] isosorbide mononitrate 30 mg tablet,extended release 24 hr 30 mg PO DAILY #90 tabs 08/10/20 [Rx Last Taken Unknown] metformin 500 mg tablet,extended release 24 hr 500 mg PO DAILY 04/24/22 [History Last Taken Unknown] warfarin 5 mg tablet 5 mg PO DAILY 04/24/22 [History Last Taken Unknown] solifenacin 5 mg tablet 5 mg PO DAILY 07/18/22 [History Last Taken Unknown] clindamycin HCl 300 mg capsule (Cleocin HCl) 300 mg PO Q6H #40 CAPSULES 03/05/23 [Rx Last Taken Unknown] Allergy/AdvReac Type Severity Reaction Status Date / Time adhesive Allergy Rash Verified 10/29/22 11:05 amoxicillin [Amoxicillin] Allergy Rash Verified 10/29/22 11:05 ampicillin Allergy Rash Verified 10/29/22 11:05 cephalexin monohydrate Allergy Rash Verified 10/29/22 11:05 [From Keflex] Penicillins Allergy Rash Verified 10/29/22 11:05 Sulfa (Sulfonamide Allergy Rash Verified 10/29/22 11:05 Antibiotics) Family History Father CAD (coronary artery disease) Mother CVA (cerebral vascular accident) Hypertension Surgical History H/O hernia repair History of appendectomy History of cardiac catheterization History of heart artery stent Presence of coronary angioplasty implant and graft (~10/06/09) S/P cardiac catheterization S/P carpal tunnel release S/P colonoscopy (~05/2013) S/P hysterectomy S/P tonsillectomy S/P trigger finger release Social History Smoking Status: Former smoker how long ago did patient quit smokin yrs alcohol intake: current alcohol intake frequency: holidays/special occasions only Alcohol type: wine substance use type: does not use caffeine: No ROS ROS ED Constitutional Constitutional ED: Denies chills or fever(s) Eyes Eyes: Denies blurry vision or change in vision ENT ENT ED: Denies rhinorrhea or sore throat Cardiovascular Cardiovascular: Denies chest pain or palpitations Respiratory/Chest Respiratory/Chest: Denies cough or dyspnea Gastrointestinal Gastrointestinal: Denies nausea or vomiting Genitourinary Genitourinary ED: Denies dysuria or hematuria Musculoskeletal Musculoskeletal: Reports back pain; Denies neck pain Integumentary Denies abscess or rash Neurologic Neurologic: Denies headache(s) or weakness Allergic/Immunologic Allergic/Immunologic ED: Denies mouth swelling or urticaria EXAM Physical Exam Const Vital Signs: 03/05/23 13:58 03/05/23 13:58 03/05/23 13:58 Temperature 95.8 F L Temperature Source Temporal Pulse Rate 72 Respiratory Rate 18 Respiratory Effort Normal Non-Labored Respiratory Depth Normal Respiratory Pattern Normal Blood Pressure 191/136 H 159/89 H Blood Pressure Mean 154 112 Pulse Ox 100 Oxygen Delivery Method Room Air Room Air Positive well nourished, well developed and obese General Appearance ED: well developed and NAD Nutritional Appearance: obese HEENT Reports normocephalic atraumatic Chest Wall inspection of chest normal and palpation of chest normal Resp normal respiratory effort and clear to auscultation bilaterally Cardio regular rate and regular rhythm GI non-tender and non-distended Palpation: soft Extremity Extremity Narrative: There is a 2 cm full-thickness linear laceration over the dorsal aspect of the proximal phalanx of the right thumb near the IP joint. There is moderate bleeding noted. There is mild gapping of the wound margins. There is no bony crepitance or step-off. There is no obvious deformity noted. Strength is 5/5 in flexion extension of the IP and MP joints of the right thumb. Sensation was intact to light touch in all digits. Capillary refill was less than 2 seconds i n all digits. There is mild tenderness over the right knee. There is a small superficial abrasion. There is good range of motion. There is moderate tenderness over the left knee. Extensor mechanism is intact. Range of motion was limited however secondary to pain. There is mild abrasion over the anterior aspect of the left knee as well. There is no bleeding noted. Pedal pulses are equal bilaterally. Sensation is intact to light touch bilaterally in the lower extremities. Strength is 5/5 bilaterally in the upper and lower extremities. Neuro oriented x3, CN's II-XII intact bilaterally, moves all extremities, no focal motor deficits and no sensory deficits noted Jessie Coma Scale: document GCS findings Spontaneous Obeys Commands Oriented 15 Sensorium / Orientation: alert Motor Exam: strength 5/5 throughout Psych mental status grossly normal MDM MDM MDM Narrative Medical decision making narrative: Differential diagnosis includes right thumb fracture, laceration, left knee fracture, left knee effusion, and left knee abrasion. Patient denies hitting her head and denies any loss of consciousness. Patient has a normal neurologic exam. I do not feel CT scan of the head is necessary at this time. X-rays of the right thumb will be obtained to assess for fracture. X-rays of the left knee will be obtained to assess for fracture. Radiography Diagnostic Testing: Clinical Impression(s) from Imaging Studies Knee X-Ray 03/05/23 15:28 IMPRESSION: Tricompartmental arthrosis as above. Soft tissue swelling as above. Electronically Signed: Reece Vega DO at 16:18 EDT , Finger X-Ray 03/05/23 15:50 IMPRESSION: Findings concerning for subtle cortical fracture along the lateral proximal aspect of the distal first phalanx. Electronically Signed: Reece Vega DO at 16:17 EDT , X-rays of the right thumb were reviewed. There are 3 views. On my independent interpretation, there is a questionable cortical fracture along the lateral aspect of the distal phalanx. Radiologist also interpreted the x-rays and agrees that there is a subtle fracture along the lateral aspect of the distal phalanx of the right thumb. There is no displacement. X-rays of the left knee were obtained. There are 3 views. On my independent interpretation, there is no acute fracture or dislocation. There is some degenerative changes noted. Radiologist also interpreted the x-rays and agrees. Treatment and Re-Evaluation Narrative: Patient was given a tetanus booster. The wound was cleaned and irrigated with copious amounts of normal saline. The wound was anesthetized with 1% plain lidocaine via digital block. The wound was closed with 7 simple interrupted #4 -0 nylon sutures under sterile technique. Patient tolerated the procedure well. Adaptic and pressure dressing was applied. Patient was instructed to keep the right thumb elevated. Patient was given a prescription for Keflex. Patient was instructed to follow-up with her primary care physician in 7 days for suture removal and wound recheck. Patient understood and was agreeable with the plan. All questions were answered. Discharge Plan Triage Chief Complaint: Fall ED Provider: Maxwell Simental Dx/Rx/DC Orders Clinical Impression: Laceration of right thumb, Open fracture of base of distal phalanx of right thumb, Contusion of left knee, initial encounter, Abrasion, left knee, initial encounter Instructions: ED Laceration, Hand: All Closures, ED Fracture, Thumb Prescriptions: New clindamycin HCl [Cleocin HCl] 300 mg capsule 300 mg PO Q6H Qty: 40 0RF No Action fenofibrate 160 mg tablet 160 mg PO DAILY hydrocortisone 2.5 % cream 1 applic TOPICAL BID PRN (Reason: Itching) atorvastatin 40 mg tablet 40 mg PO QHS atenolol 25 mg tablet 25 mg PO DAILY metformin 500 mg tablet extended release 24 hr 500 mg PO DAILY fosinopril 40 MG tablet 40 mg PO DAILY Label Comments: blood pressure nitroglycerin 0.4 MG tablet 0.4 mg SUBLINGUAL Q5M PRN (Reason: Chest Pain) Label Comments: heart levothyroxine 112 MCG tablet 112 mcg PO DAILY Label Comments: syhtroid aspirin 81 MG tablet,chewable 81 mg PO QHS Label Comments: heart multivitamin with folic acid 1 TABLET tablet 1 tab PO DAILY Label Comments: mvi meclizine 25 MG tablet 25 mg PO TID PRN PRN (Reason: Vertigo) Qty: 20 0RF solifenacin 5 mg tablet 5 mg PO DAILY magnesium oxide 400 mg (241.3 mg magnesium) tablet 800 mg PO BID Label Comments: magnesium isosorbide mononitrate 30 mg tablet extended release 24 hr 30 mg PO DAILY Qty: 90 3RF warfarin 5 mg tablet 5 mg PO DAILY Protocol: Dose Management Protocol Text: Patient Instructed to take: warfarin 5 mg (1 Tab) on , , , SA warfarin 5 mg (1.5 Tabs) on , , Rx Instructions: Current dose 7.5 mg 2 days per week, 5 mg all others. Managed by Dr. Rosario Primary Care Provider: Earlene Rosario Referrals: Earlene Rosario MD [Primary Care Provider] - 7 Days for suture removal Disposition Disposition: Home, Self Care
--- NOTE | 2023-03-05 15:28 | RAD_ITS ---
STUDY: X-RAY - LEFT KNEE REASON FOR EXAM: Female, 77 years old. Injury/Pain TECHNIQUE: 3 view(s) of the knee. COMPARISON: None. FINDINGS: Normal visualized distal femur. Normal visualized proximal tibia and fibula. Normal proximal tibiofibular articulation. 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 There is mild degenerative arthrosis of the lateral femorotibial compartment. There is moderate degenerative arthrosis of the patellofemoral articulation. Soft tissue swelling and edema anterior to the patella is noted. RAD/Knee 3 Views IMPRESSION: Tricompartmental arthrosis as above. Soft tissue swelling as above. Electronically Signed: Reece Vega DO at 16:18 EDT ,
--- NOTE | 2023-03-05 15:50 | RAD_ITS ---
STUDY: X-RAY - RIGHT HAND, ATTENTION FIRST FINGER REASON FOR EXAM: Female, 77 years old. Injury/Pain TECHNIQUE: 3 view(s) of the finger were obtained. COMPARISON: None. FINDINGS: Normal metacarpal head. Normal metacarpophalangeal joint. Normal proximal phalanx. Normal middle phalanx. There is a slight cortical irregularity along the lateral aspect of the proximal distal first phalanx concerning for subtle cortical fracture. Normal proximal interphalangeal joint. Normal distal interphalangeal joint. RAD/Finger(s) Min 2 Views IMPRESSION: Findings concerning for subtle cortical fracture along the lateral proximal aspect of the distal first phalanx. Electronically Signed: Reece Vega DO at 16:17 EDT ,
[2023-03-05] MEDS: Diphth,Pertuss(Acell),Tet Vac 0.5 ML Vial IM (16:15)
[2023-03-05] MEDS: Lidocaine 1% (20 ml mdv) 20 ML Vial INFILT (16:16)
[2023-03-05 17:00] VITALS: BMI 44.9
[2023-03-05] MEDS: Clindamycin HCl 150 MG Capsule 300 MG PO (17:09)
== END 2023-03-05 17:21 | disposition home or self-care (01) ==
PROVIDERS: Emergency Provider Emergency Medicine; PCP Internal Medicine; Visit Provider Emergency Medicine
DX: S62.521B Displaced fracture of distal phalanx of right thumb, initial encounter for open fracture (principal); E11.9 Type 2 diabetes mellitus without complications; Z87.891 Personal history of nicotine dependence; W18.30XA Fall on same level, unspecified, initial encounter; S80.02XA Contusion of left knee, initial encounter; I10 Essential (primary) hypertension; S80.212A Abrasion, left knee, initial encounter; E78.2 Mixed hyperlipidemia; I25.10 Atherosclerotic heart disease of native coronary artery without angina pectoris; Z79.01 Long term (current) use of 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s; Z86.711 Personal history of pulmonary embolism; Z79.82 Long term (current) use of aspirin; E03.9 Hypothyroidism, unspecified; Z79.899 Other long term (current) drug therapy; Z79.84 Long term (current) use of oral hypoglycemic drugs; Z95.5 Presence of coronary angioplasty implant and graft; Z23 Encounter for immunization
CPT/HCPCS: 12001; 73140; 73562; 90715; 96372; 99284

== ENCOUNTER 2023-03-08 09:39 | Emergency (ER) | payer MEDICARE, OTHER, SELFPAY ==
[2020-02-07 08:24] VITALS: BMI 45.7
[2023-03-08 09:40] VITALS: PULSE 62; RESP 18; TEMP 36.1; O2SAT 98; BMI 43.4
[2023-03-08 09:43] VITALS: BP 175/65
[2023-03-08] MEDS: diazePAM 2 MG Tablet PO (10:27)
[2023-03-08] MEDS: oxyCODONE 5 MG Tablet PO (10:27)
--- NOTE | 2023-03-08 11:59 | ED.VIS.BACK ---
HPI History of Present Illness Chief Complaint: Back Informant: patient and family Narrative Narrative: Present by EMS from home increasing right lower back pain for the past day. Note was seen 3 days ago mechanical fall work-up with the thumb fracture knee contusion. There is been no new injuries she is on warfarin. She is on antibiotics for concerns for open fracture of her thumb. Her neighbor brought her a walker this morning. However difficulty walking therefore brought in here. Took Tylenol prior to arrival. Denies any radicular pain. Denies any loss of bowel or bladder control. 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 Mixed hyperlipidemia Obesity Post-menopausal Presence 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 (10/25/19) Pulmonary embolism (08/2017) RBBB (right bundle branch block) Thyroid disease Wears glasses Home Medications aspirin 81 mg chewable tablet 81 mg PO QHS 05/10/14 [History Last Taken 10/25/19] fosinopril 40 mg tablet 40 mg PO DAILY BP 05/10/14 [History Last Taken 10/25/19] levothyroxine 112 mcg tablet 112 mcg PO DAILY 05/10/14 [History Last Taken 10/25/19] multivitamin with folic acid 400 mcg tablet 1 tab PO DAILY 05/10/14 [History Last Taken 08/01/17 08:00] nitroglycerin 0.4 mg sublingual tablet 0.4 mg sublingual Q5M PRN Chest Pain 05/10/14 [History Last Taken Unknown] meclizine 25 mg tablet 25 mg PO TID PRN PRN Vertigo #20 tabs 10/22/17 [Rx Last Taken Unknown] fenofibrate 160 mg tablet 160 mg PO DAILY 09/14/19 [History Last Taken 10/25/19] magnesium oxide 400 mg (241.3 mg magnesium) tablet 800 mg PO BID 10/27/19 [History Last Taken Unknown] atenolol 25 mg tablet 25 mg PO DAILY 07/10/20 [History Last Taken Unknown] atorvastatin 40 mg tablet 40 mg PO QHS 07/10/20 [History Last Taken Unknown] hydrocortisone 2.5 % topical cream 1 applic topical BID PRN Itching 07/10/20 [History Last Taken Unknown] isosorbide mononitrate 30 mg tablet,extended release 24 hr 30 mg PO DAILY #90 tabs 08/10/20 [Rx Last Taken Unknown] metformin 500 mg tablet,extended release 24 hr 500 mg PO DAILY 04/24/22 [History Last Taken Unknown] warfarin 5 mg tablet 5 mg PO DAILY 04/24/22 [History Last Taken Unknown] solifenacin 5 mg tablet 5 mg PO DAILY 07/18/22 [History Last Taken Unknown] clindamycin HCl 300 mg capsule (Cleocin HCl) 300 mg PO Q6H #40 CAPSULES 03/05/23 [Rx Last Taken Unknown] diazepam 2 mg tablet 2 mg PO TID PRN PRN Vertigo #10 TABLETS 03/08/23 [Rx Last Taken Unknown] oxycodone-acetaminophen 5 mg-325 mg tablet (Percocet) 1 tab PO Q8H PRN pain 3 days #10 tabs 03/08/23 [Rx Last Taken Unknown] Allergy/AdvReac Type Severity Reaction Status Date / Time adhesive Allergy Rash Verified 03/08/23 09:42 amoxicillin [Amoxicillin] Allergy Rash Verified 03/08/23 09:42 ampicillin Allergy Rash Verified 03/08/23 09:42 cephalexin monohydrate Allergy Rash Verified 03/08/23 09:42 [From Keflex] Penicillins Allergy Rash Verified 03/08/23 09:42 Sulfa (Sulfonamide Allergy Rash Verified 03/08/23 09:42 Antibiotics) Family History Father CAD (coronary artery disease) Mother CVA (cerebral vascular accident) Hypertension Surgical History H/O hernia repair History of appendectomy History of cardiac catheterization History of heart artery stent Presence of coronary angioplasty implant and graft (~10/06/09) S/P cardiac catheterization S/P carpal tunnel release S/P colonoscopy (~05/2013) S/P hysterectomy S/P tonsillectomy S/P trigger finger release Social History Smoking Status: Former smoker how long ago did patient quit smokin yrs alcohol intake: current alcohol intake frequency: holidays/special occasions only Alcohol type: wine substance use type: does not use caffeine: No ROS ROS ED Constitutional Constitutional ED: Denies chills, fever(s) or sweats Eyes Eyes: Denies change in vision ENT ENT ED: Denies dysphagia or sore throat Cardiovascular Cardiovascular: Denies chest pain, leg edema, palpitations or racing heartbeat Respiratory/Chest Respiratory/Chest: Denies cough, dyspnea or dyspnea on exertion Gastrointestinal Gastrointestinal: Denies abdominal pain, diarrhea, nausea or vomiting Genitourinary Genitourinary ED: Denies dysuria, hematuria or urinary frequency Musculoskeletal Musculoskeletal: Reports back pain; Denies extremity pain or neck pain Integumentary Denies rash or wounds Neurologic Neurologic: Denies headache(s), paresthesias or weakness EXAM Physical Exam Const Vital Signs: 03/08/23 09:40 03/08/23 09:43 Temperature 96.9 F L Temperature Source Temporal Pulse Rate 62 Respiratory Rate 18 Blood Pressure 175/65 H Blood Pressure Mean 101 Pulse Ox 98 Oxygen Delivery Method Room Air Positive well nourished and well developed General Appearance ED: well developed and NAD HEENT Reports moist mucous membranes normocephalic and atraumatic Eyes PERRL, EOMs intact bilaterally and conjunctivae normal General Eye ED: Yes normal appearance of both eyes Neck no lymphadenopathy and supple General: Negative for tenderness Chest Wall Chest: Negative for tenderness Resp normal respiratory effort and normal air movement Effort and Inspection: symmetric chest movement; Negative for respiratory distress Cardio regular rate, regular rhythm and no murmurs Peripheral Pulses: pulses 2+ throughout GI normal to inspection, nondistended, normoactive bowel sounds and non-tender Palpation: Negative for guarding or rebound tenderness present Back/Spine no CVA tenderness Back/Spine Narrative: Number midline back tenderness there is reproducible right paralumbar tenderness. Straight leg test was negative. Extremity Extremity Narrative: Right hand: Dressing was removed by patient sutures were intact dorsally clean, dry, intact. No drainage. Left lower extremity: Large knee ecchymosis, extensor mechanism intact. Skin intact. General Extremety ED: Negative for edema or tenderness General Extremity: Negative for edema Neuro oriented x3 and no sensory deficits noted Sensorium / Orientation: awake and alert Skin no rashes or lesions noted and no wounds MDM MDM MDM Narrative Medical decision making narrative: Interventions / MDM: Differential diagnosis: Lumbar strain, muscle spasm Diagnosis considered but do not suspect: Cauda equina syndrome, no clinical symptoms My EKG interpretation: N/A Imaging independently reviewed and interpreted by myself: N/A External documents reviewed: N/A Test considered but not ordered:N/A ED course: Reproducible back symptoms likely from her fall 3 days ago increasing spasms. No cauda equina symptoms. Treated with Valium low-dose along with oxycodone feeling better she is able to ambulate prior to the medications with a walker. Her wound was redressed by the nursing of her thumb. Her daughter is present, can help at home. She is able to manage with a walker at this time. No indication for admission for any rehab at this time however return precautions discussed. Short prescriptions of medications to help with symptoms sent to her pharmacy. All questions were answered. Re-evaluation: stable Disposition discussed with patient/family/significant other: Patient and daughter Case discussed with consulting clinician: N/A Discharge Plan Triage Chief Complaint: Back Other Complaint: Fall ED Provider: Adrien Bonilla Dx/Rx/DC Orders Clinical Impression: Back muscle spasm, Lumbar strain Instructions: Muscle Spasm, ED Back Sprain/Strain Prescriptions: New oxycodone-acetaminophen [Percocet] 5-325 mg tablet 1 tab PO Q8H PRN (Reason: pain) 3 Days Qty: 10 0RF diazepam [diazepam] 2 mg tablet 2 mg PO TID PRN PRN (Reason: Vertigo) Qty: 10 0RF No Action fenofibrate 160 mg tablet 160 mg PO DAILY hydrocortisone 2.5 % cream 1 applic TOPICAL BID PRN (Reason: Itching) atorvastatin 40 mg tablet 40 mg PO QHS atenolol 25 mg tablet 25 mg PO DAILY metformin 500 mg tablet extended release 24 hr 500 mg PO DAILY fosinopril 40 MG tablet 40 mg PO DAILY Label Comments: blood pressure nitroglycerin 0.4 MG tablet 0.4 mg SUBLINGUAL Q5M PRN (Reason: Chest Pain) Label Comments: heart levothyroxine 112 MCG tablet 112 mcg PO DAILY Label Comments: syhtroid aspirin 81 MG tablet,chewable 81 mg PO QHS Label Comments: heart multivitamin with folic acid 1 TABLET tablet 1 tab PO DAILY Label Comments: mvi meclizine 25 MG tablet 25 mg PO TID PRN PRN (Reason: Vertigo) Qty: 20 0RF solifenacin 5 mg tablet 5 mg PO DAILY clindamycin HCl [Cleocin HCl] 300 mg capsule 300 mg PO Q6H Qty: 40 0RF magnesium oxide 400 mg (241.3 mg magnesium) tablet 800 mg PO BID Label Comments: magnesium isosorbide mononitrate 30 mg tablet extended release 24 hr 30 mg PO DAILY Qty: 90 3RF warfarin 5 mg tablet 5 mg PO DAILY Protocol: Dose Management Protocol Text: Patient Instructed to take: warfarin 5 mg (1 Tab) on , , , SA warfarin 5 mg (1.5 Tabs) on , , Rx Instructions: Current dose 7.5 mg 2 days per week, 5 mg all others. Managed by Dr. Rosario Primary Care Provider: Earlene Rosario Referrals: Earlene Rosario MD [Primary Care Provider] - 3-5 Days Activity Restrictions/Additional Instructions: Use walker at home for support. Take medications as prescribed as needed. Follow-up with your doctor. Return if worsening symptoms. Disposition Disposition: Home, Self Care Discharge Date/Time: 03/08/23 12:18
== END 2023-03-08 12:18 | disposition home or self-care (01) ==
PROVIDERS: Emergency Provider Emergency Medicine; PCP Internal Medicine; Visit Provider Emergency Medicine
DX: S39.012A Strain of muscle, fascia and tendon of lower back, initial encounter (principal); E11.9 Type 2 diabetes mellitus without complications; I25.10 Atherosclerotic heart disease of native coronary artery without angina pectoris; Z87.891 Personal history of nicotine dependence; I10 Essential (primary) hypertension; R26.2 Difficulty in walking, not elsewhere classified; M62.830 Muscle spasm of back; E78.2 Mixed hyperlipidemia; W19.XXXA Unspecified fall, initial encounter
CPT/HCPCS: 99285

== ENCOUNTER 2023-09-25 17:40 | Observation (INO) | payer MEDICARE, OTHER, SELFPAY ==
[2020-02-07 08:24] VITALS: BMI 45.7
[2023-09-25 17:41] VITALS: BP 169/68; PULSE 58; RESP 16; TEMP 36.5; O2SAT 100; BMI 45.1
[2023-09-25 17:44] VITALS: BP 169/89; PULSE 60; RESP 16; O2SAT 100
--- NOTE | 2023-09-25 17:51 | RAD_ITS ---
EXAM: XR PELVIS, 1 OR 2 VIEWS CLINICAL INDICATION: pain -- -- FALL, PAIN RT HIP RADIATING INTO THIGH TECHNIQUE: Frontal view of the pelvis. COMPARISON: No relevant prior studies available. FINDINGS: BONES/JOINTS: Unremarkable. No displaced fracture. No destructive or sclerotic lesions. Note that overlapping bowel shadows may however obscure fine detail. Sacroiliac joints are unremarkable. No widening of the pubic symphysis. The articular structures are unremarkable. SOFT TISSUES: Unremarkable. No soft tissue swelling or gas. RAD/Pelvis 1 or 2 Views IMPRESSION: No evidence of displaced pelvic fracture. Electronically Signed: Kun Gonzales MD at 18:34 EDT ,
--- NOTE | 2023-09-25 17:51 | RAD_ITS ---
EXAM: XR RIGHT FEMUR, 2 VIEWS CLINICAL INDICATION: trauma, pain TECHNIQUE: Frontal and lateral views of the right femur. COMPARISON: No relevant prior studies available. FINDINGS: BONES/JOINTS: Unremarkable. No acute fracture. No subluxation. Normal alignment. Preservation of the joint space. No sclerotic or destructive changes observed. SOFT TISSUES: Unremarkable. No soft tissue swelling or gas. No radiopaque foreign body. RAD/Femur Min 2 Views IMPRESSION: Negative right femur x-rays. Electronically Signed: Kun Gonzales MD at 18:19 EDT ,
--- NOTE | 2023-09-25 17:51 | ED.VIS.FALL ---
HPI HPI - Fall History of Present Illness Chief Complaint: Fall Narrative Narrative: 78-year-old female presents via EMS with right hip and femur pain from a fall that she sustained approximately 3 hours ago. She states she was out walking her neighbors dog, when he got a hold of a bone somehow. She was trying to wrestle it away from the dog, and her legs got wrapped up, and she fell and rolled onto her right hip. She called her neighbors who had to help her up. She was able to get into the house, and took Tylenol, but is having increasing right hip pain radiating down towards her knee. She has pain all the way to the level of her right knee. She denies hitting her head or loss of consciousness, or other injury. [facility] Medical History Arthritis Atherosclerotic heart disease of [place] coronary artery without angina pectoris Bladder disease Cardiology follow-up encounter Diabetes DM2 (diabetes mellitus, type 2) Essential hypertension Former smoker GERD (gastroesophageal reflux disease) High cholesterol History of echocardiogram History of gastric ulcer History of pulmonary embolism (~08/2017) History of stress test History of ulceration Hypertension Hypothyroidism Incisional hernia, without obstruction or gangrene Leg cramps [facility] current use of 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 Mixed hyperlipidemia Obesity Post-menopausal Presence 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 (10/25/19) Pulmonary embolism (08/2017) RBBB (right bundle branch block) Thyroid disease Wears glasses Home Medications aspirin 81 mg chewable tablet 81 mg PO QHS 05/10/14 [History Last Taken 10/25/19] levothyroxine 112 mcg tablet 112 mcg PO DAILY 05/10/14 [History Last Taken 10/25/19] nitroglycerin 0.4 mg sublingual tablet 0.4 mg sublingual Q5M PRN Chest Pain 05/10/14 [History Last Taken Unknown] meclizine 25 mg tablet 25 mg PO TID PRN PRN Vertigo #20 tabs 10/22/17 [Rx Last Taken Unknown] fenofibrate 160 mg tablet 160 mg PO DAILY 09/14/19 [History Last Taken 10/25/19] magnesium oxide 400 mg (241.3 mg magnesium) tablet 800 mg PO BID 10/27/19 [History Last Taken Unknown] atenolol 25 mg tablet 25 mg PO DAILY 08/10/20 [History Last Taken Unknown] atorvastatin 40 mg tablet 40 mg PO QHS 07/10/20 [History Last Taken Unknown] hydrocortisone 2.5 % topical cream 1 applic topical BID PRN Itching 07/10/20 [History Last Taken Unknown] isosorbide mononitrate 30 mg tablet,extended release 24 hr 30 mg PO DAILY #90 tabs 08/10/20 [Rx Last Taken Unknown] metformin 500 mg tablet,extended release 24 hr 500 mg PO DAILY 04/24/22 [History Last Taken Unknown] warfarin 5 mg tablet 5 mg PO DAILY 04/24/22 [History Last Taken Unknown] solifenacin 5 mg tablet 5 mg PO DAILY 07/18/22 [History Last Taken Unknown] fosinopril 40 mg tablet 40 mg PO BID this is a dose increase #60 tabs 09/01/23 [Rx Last Taken Unknown] amlodipine 5 mg tablet 5 mg PO DAILY #30 tabs 09/11/23 [Rx Last Taken Unknown] hydrocodone-acetaminophen 5-325mg 5mg-325mg 1 tab PO Q6H PRN PRN Pain 3 days #10 TABLETS 09/25/23 [Rx Last Taken Unknown] Allergy/AdvReac Type Severity Reaction Status Date / Time adhesive Allergy Rash Verified 09/25/23 17:41 amoxicillin [Amoxicillin] Allergy Rash Verified 09/25/23 17:41 ampicillin Allergy Rash Verified 09/25/23 17:41 cephalexin monohydrate Allergy Rash Verified 09/25/23 17:41 [From [facility]] Penicillins Allergy Rash Verified 09/25/23 17:41 Sulfa (Sulfonamide Allergy Rash Verified 09/25/23 17:41 Antibiotics) Family History Father CAD (coronary artery disease) Mother CVA (cerebral vascular accident) Hypertension Surgical History H/O hernia repair History of appendectomy History of cardiac catheterization History of heart artery stent Presence of coronary angioplasty implant and graft (~10/06/09) S/P cardiac catheterization S/P carpal tunnel release S/P colonoscopy (~05/2013) S/P hysterectomy S/P tonsillectomy S/P trigger finger release Social History Smoking Status: Former smoker how long ago did patient quit smokin yrs alcohol intake: current alcohol intake frequency: holidays/special occasions only Alcohol type: wine substance use type: does not use caffeine: No ROS ROS ED ROS Narrative Constitutional: No fever, no chills. HEENT: No sore throat. No neck pain. No loss of vision. No rhinorrhea. Cardiovascular: No chest pain. No palpitations. No pedal edema. Respiratory: No cough, no shortness of breath. Abdominal: No abdominal pain. No nausea. No vomiting. Genitourinary: No dysuria. No hematuria. Musculoskeletal: No myalgias. Right hip and upper leg pain. Worse with movement. Neurologic: No headaches. No dizziness. No lightheadedness. Skin: No rash. No change in color. Psychiatric: No depression. No anxiety. EXAM Physical Exam Narrative Exam Narrative: Afebrile. Vital signs noted. HEENT: Normocephalic. Atraumatic. PERRL, EOMI. Neck soft and supple. No point tenderness or step off. Cardiovascular: Regular rate and rhythm. No murmurs, rubs, or gallops appreciated. Respiratory: No tachypnea. Lungs clear to auscultation bilaterally. Gastrointestinal: Abdomen soft, nontender, with normoactive bowel sounds. No rebound or guarding. Neurological: Awake. Alert. Nonfocal, nonlateralizing. Skin: No rash. Normal color. No pallor. Musculoskeletal: No pedal edema. No pain with logrolling of right femur, mild tenderness diffusely right hip and right midshaft femur. EHL intact. Palpable dorsalis pedis pulse, right lower extremity. Range of motion at right knee mildly limited secondary to pain. Flexion and extension mechanism intact. Const Vital Signs: 09/25/23 17:41 09/25/23 17:44 09/25/23 17:44 Temperature 97.7 F L Temperature Source Oral Pulse Rate 58 L 60 Respiratory Rate 16 16 Respiratory Effort Normal Respiratory Depth Normal Respiratory Pattern Normal Blood Pressure 169/68 H 169/89 H Blood Pressure Mean 101 115 Pulse Ox 100 100 100 Oxygen Delivery Method Room Air Room Air Room Air MDM MDM MDM Narrative Medical decision making narrative: Patient had already received fentanyl 100 mcg and Zofran from EMS. X-rays were obtained of the right hip and pelvis along with the right femur in 2 views. Concern is for hip fracture versus hip contusion. X-rays of the right femur in 2 views, and of the pelvis were obtained and interpreted by myself independently. There is no evidence of an acute fracture. I reviewed the radiology report which confirms my independent interpretation. At this point in time, her niece is at the bedside and had brought over a walker to help the patient ambulate at home. As the patient has multiple comorbidities she will be given 10 tablets of [place] to take for analgesia. I reviewed her OARRS report as well. At this point in time, I feel she can be discharged safely home with follow-up to her primary care provider. I do not feel she requires observation at this time. Return instructions to the emergency department were reviewed. Disposition is discharged home in stable condition. History & Record Review Additional record(s) reviewed:: Prior ED visit Radiography Diagnostic Testing: Clinical Impression(s) from Imaging Studies Femur X-Ray 09/25/23 17:51 IMPRESSION: Negative right femur x-rays. Electronically Signed: Kun Gonzales MD at 18:19 EDT , Pelvis X-Ray 09/25/23 17:51 IMPRESSION: No evidence of displaced pelvic fracture. Electronically Signed: Kun Gonzales MD at 18:34 EDT , Discharge Plan Triage Chief Complaint: Fall ED Provider: Alfredito Bowie Dx/Rx/DC Orders Clinical Impression: Leg pain, right, Fall, Contusion of hip, right Instructions: ED Mechanical Fall, ED Hip Contusion Prescriptions: New hydrocodone-acetaminophen 5-325 mg tablet 1 tab PO Q6H PRN PRN (Reason: Pain) 3 Days Qty: 10 0RF No Action fenofibrate 160 mg tablet 160 mg PO DAILY hydrocortisone 2.5 % cream 1 applic TOPICAL BID PRN (Reason: Itching) atorvastatin 40 mg tablet 40 mg PO QHS atenolol 25 mg tablet 25 mg PO DAILY metformin 500 mg tablet extended release 24 hr 500 mg PO DAILY nitroglycerin 0.4 MG tablet 0.4 mg SUBLINGUAL Q5M PRN (Reason: Chest Pain) Patient Comments: heart levothyroxine 112 MCG tablet 112 mcg PO DAILY Patient Comments: syhtroid aspirin 81 MG tablet,chewable 81 mg PO QHS Patient Comments: heart meclizine 25 MG tablet 25 mg PO TID PRN PRN (Reason: Vertigo) Qty: 20 0RF solifenacin 5 mg tablet 5 mg PO DAILY magnesium oxide 400 mg (241.3 mg magnesium) tablet 800 mg PO BID Patient Comments: magnesium isosorbide mononitrate 30 mg tablet extended release 24 hr 30 mg PO DAILY Qty: 90 3RF warfarin 5 mg tablet 5 mg PO DAILY Protocol: Dose Management Protocol Text: Patient Instructed to take: warfarin 5 mg (1 Tab) on , , , SA warfarin 5 mg (1.5 Tabs) on , , Rx Instructions: Current dose 7.5 mg 2 days per week, 5 mg all others. Managed by Dr. Rosario fosinopril 40 mg tablet 40 mg PO BID Qty: 60 11RF amlodipine 5 mg tablet 5 mg PO DAILY Qty: 30 11RF Primary Care Provider: Earlene Rosario Referrals: Earlene Rosario MD [Primary Care Provider] - 3-5 Days if not improving Disposition Disposition: Home, Self Care
[2023-09-25 20:56] LABS: Absolute Lymphocyte Count 1.25 X10^3/uL (0.83-4.51); Absolute Neutrophil Count 16.1 X10^3/uL (2.0-7.7); Basophil# 0.07 X10^3/uL; Basophil% 0.4 % (0-1); Eosinophil# 0.02 X10^3/uL; Eosinophils% 0.1 % (0-5); Hematocrit 38.9 % (37-47); Lymphocyte # 1.25 X10^3/ul (0.83-4.51); Lymphocyte % 6.8 % (19-41); Mean Corp Hgb Conc 30.8 g/dL (32-36); Mean Corpuscular Hgb 27.3 pg (27.0-32.0); Mean Corpuscular Volume 88.6 fL (81-99); Mean Platelet Vol. 10.9 fl (6.2-12.0); Monocyte# 0.86 X10^3/uL; Monocyte% 4.7 % (0-10); NRBC Flagged by Analyzer 0 % (0-5); Neutrophil # 16.07 X10^3/uL (2.7-7.7); Neutrophil % 87.3 % (47-70); Platelet Count 344 K/mm3 (150-450); RBC Distribution Width CV 14.4 % (11.6-14.6); RBC Distribution Width SD 46.5 fl (35.1-43.9); Red Blood Count 4.39 M/mm3 (4.2-5.4); White Blood Count 18.4 K/mm3 (4.4-11.0)
--- NOTE | 2023-09-25 20:59 | PCM.HP.STD ---
[facility] - General General Date of Admission: 09/25/23 Date of Service: 09/25/23 Chief Complaint: Fall HPI Narrative YOBANI REID, is a 78 F with a significant history of CAD status post 3 stents; pulmonary embolism x2 and on Coumadin; hypertension and diabetes mellitus who presented to emergency department with a fall on the same day of presentation. Reportedly patient was walking her neighbors dog. The dog attempted to pick a bone on the ground. However, patient did not want the dog picking the bone. And in the process of preventing the dog from picking the bone; patient's leg and the dog's leg got entangled and patient fell. With the fall she reports excruciating pain in her right hip. Also she scraped her right elbow. Reportedly patient was given 100 mg of fentanyl by the squad. At the emergency department because patient persistently had pain she felt she could not go home and is looking into getting into a possible rehabilitation program as she lives at home by herself. [facility] Medical History Arthritis Atherosclerotic heart disease of [place] coronary artery without angina pectoris Bladder disease Cardiology follow-up encounter Diabetes DM2 (diabetes mellitus, type 2) Essential hypertension Former smoker GERD (gastroesophageal reflux disease) High cholesterol History of echocardiogram History of gastric ulcer History of pulmonary embolism (~08/2017) History of stress test History of ulceration Hypertension Hypothyroidism Incisional hernia, without obstruction or gangrene Leg cramps [facility] current use of 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 Mixed hyperlipidemia Obesity Post-menopausal Presence 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 (10/25/19) Pulmonary embolism (08/2017) RBBB (right bundle branch block) Thyroid disease Wears glasses Home Medications aspirin 81 mg chewable tablet 81 mg PO QHS 05/10/14 [History Last Taken 10/25/19] levothyroxine 112 mcg tablet 112 mcg PO DAILY 05/10/14 [History Last Taken 10/25/19] nitroglycerin 0.4 mg sublingual tablet 0.4 mg sublingual Q5M PRN Chest Pain 05/10/14 [History Last Taken Unknown] meclizine 25 mg tablet 25 mg PO TID PRN PRN Vertigo #20 tabs 10/22/17 [Rx Last Taken Unknown] fenofibrate 160 mg tablet 160 mg PO DAILY 09/14/19 [History Last Taken 10/25/19] magnesium oxide 400 mg (241.3 mg magnesium) tablet 800 mg PO BID 10/27/19 [History Last Taken Unknown] atenolol 25 mg tablet 25 mg PO DAILY 07/10/20 [History Last Taken Unknown] atorvastatin 40 mg tablet 40 mg PO QHS 07/10/20 [History Last Taken Unknown] hydrocortisone 2.5 % topical cream 1 applic topical BID PRN Itching 07/10/20 [History Last Taken Unknown] isosorbide mononitrate 30 mg tablet,extended release 24 hr 30 mg PO DAILY #90 tabs 08/10/20 [Rx Last Taken Unknown] metformin 500 mg tablet,extended release 24 hr 500 mg PO DAILY 04/24/22 [History Last Taken Unknown] warfarin 5 mg tablet 5 mg PO DAILY 04/24/22 [History Last Taken Unknown] solifenacin 5 mg tablet 5 mg PO DAILY 07/18/22 [History Last Taken Unknown] fosinopril 40 mg tablet 40 mg PO BID this is a dose increase #60 tabs 09/01/23 [Rx Last Taken Unknown] amlodipine 5 mg tablet 5 mg PO DAILY #30 tabs 09/11/23 [Rx Last Taken Unknown] hydrocodone-acetaminophen 5-325mg 5mg-325mg 1 tab PO Q6H PRN PRN Pain 3 days #10 TABLETS 09/25/23 [Rx Last Taken Unknown] Allergy/AdvReac Type Severity Reaction Status Date / Time adhesive Allergy Rash Verified 09/25/23 17:41 amoxicillin [Amoxicillin] Allergy Rash Verified 09/25/23 17:41 ampicillin Allergy Rash Verified 09/25/23 17:41 cephalexin monohydrate Allergy Rash Verified 09/25/23 17:41 [From [facility]] Penicillins Allergy Rash Verified 09/25/23 17:41 Sulfa (Sulfonamide Allergy Rash Verified 09/25/23 17:41 Antibiotics) Family History Father CAD (coronary artery disease) Mother CVA (cerebral vascular accident) Hypertension Surgical History H/O hernia repair History of appendectomy History of cardiac catheterization History of heart artery stent Presence of coronary angioplasty implant and graft (~10/06/09) S/P cardiac catheterization S/P carpal tunnel release S/P colonoscopy (~05/2013) S/P hysterectomy S/P tonsillectomy S/P trigger finger release Social History Smoking Status: Former smoker how long ago did patient quit smokin yrs alcohol intake: current alcohol intake frequency: holidays/special occasions only Alcohol type: wine substance use type: does not use caffeine: No ROS ROS Narrative Pertinent positives and pertinent negatives as noted in HPI. All other systems were reviewed and are negative Vital Signs Vital Signs Vital Signs: 09/25/23 17:41 09/25/23 17:44 09/25/23 17:44 Temperature 97.7 F L Temperature Source Oral Pulse Rate 58 L 60 Respiratory Rate 16 16 Respiratory Effort Normal Respiratory Depth Normal Respiratory Pattern Normal Blood Pressure 169/68 H 169/89 H Blood Pressure Mean 101 115 Pulse Ox 100 100 100 Oxygen Delivery Method Room Air Room Air Room Air Weight Weight: 115.4 kg Body Mass Index (BMI) 45.1 Physical Exam Narrative Physical exam: General: Well-nourished, well-developed. Head: Normocephalic, atraumatic, no tenderness Eyes: Vision is grossly intact. EOMI ENT, no trauma, moist mucous membranes, no rhinorrhea Neck: Nontender, No thyromegaly. CVS: Regular rate and rhythm. S1-S2 present. No murmur, gallop or rub. Respiratory : clear to auscultation bilaterally, chest wall nontender Abdomen: Soft, nontender, nondistended, normal bowel sounds, no masses : Deferred Back: Nontender, no CVA tenderness Extremities: Nontender full range of motion, no trauma Skin: Normal color abrasions and excoriation of right elbow area. Tenderness of lateral right hip. Neuro: Alert, oriented, cranial nerves II through XII grossly intact. Psychiatry: Normal mood. Normal affect. Not depressed. Not anxious. Results Lab / Micro Data 09/25/23 20:45 09/25/23 20:45 Labs: Laboratory Results - last 24 hr 09/25/23 20:45: WBC 18.4 H, RBC 4.39, Hgb 12.0, Hct 38.9, MCV 88.6, MCH 27.3, MCHC 30.8 L, RDW Std Deviation 46.5 H, RDW Coeff of Angel[place] 14.4, Plt Count 344, MPV 10.9, Immature Gran % (Auto) 0.700, Neut % (Auto) 87.3 H, Lymph % (Auto) 6.8 L, Sharkey % (Auto) 4.7, Eos % (Auto) 0.1, Baso % (Auto) 0.4, Absolute Neuts (auto) 16.1 H, Absolute Lymphs (auto) 1.25, Nucleated RBC % 0 Radiology Impression Femur X-Ray 09/25/23 17:51 IMPRESSION: Negative right femur x-rays. Electronically Signed: Kun Gonzales MD at 18:19 EDT , Pelvis X-Ray 09/25/23 17:51 IMPRESSION: No evidence of displaced pelvic fracture. Electronically Signed: Kun Gonzales MD at 18:34 EDT , Assessment & Plan Assessment/Plan (1) Debility: (2) Contusion of hip, right: QUALIFIERS: Encounter type: initial encounter Qualified Code(s): S70.01XA - Contusion of right hip, initial encounter (3) Fall: QUALIFIERS: Encounter type: initial encounter Qualified Code(s): W19.XXXA - Unspecified fall, initial encounter (4) Leg pain, right: PLAN: Plan Debility with fall Impression of pelvis x-ray by radiology: No evidence of displaced pelvic fracture. Pelvis x-ray was independently interpreted: Agrees to radiology interpretation. Femur x-ray was negative. Vitamin D level Case management consult to help with disposition Leukocytosis White count on presentation was 18.4. There is neutrophilic predominance. There is lymphopenia; and there is no bandemia. Trend CBC History of pulmonary embolism Discussed with emergency department doctor to order INR. Trend INR. Dose Coumadin based on INR Diabetes mellitus Blood glucose is stable. Accu-Chek QA CHS ordered. Metformin continued. Hypertension Blood pressure is not within goal Home blood pressure medication continued. As needed hydralazine ordered. Trend blood pressure and adjust blood pressure medications. Abnormal laboratory work Patient's who has no symptoms; came in with a fall and has right hip pain is found to have with multiple abnormality electrolytes. Sodium is 147 ; potassium 2.8; chloride 128; bicarb 15; calcium is 5.2. Will check a CMP to validate these labs. DVT prophylaxis: Not indicated as patient is on warfarin. Warfarin to be continued. Time spent in the patient's overall evaluation,decision-making process, review of diagnostic data, adjustment of management, discussion with other providers, nursing and ancillary staff involved in patient's care documentation, 65 minutes. Charges/Coding Visit Charges Inpatient E&M: 74160 Init Hosp L3
[2023-09-25 21:39] LABS: Anion Gap 4 (5-15); BUN 19 mg/dL (7-18); BUN/Creat Ratio 29.8 RATIO (10-20); Calcium,Total 5.2 mg/dL (8.5-10.1); Chloride 128 mmol/L (98-107); Creatinine, Serum 0.64 mg/dL (0.55-1.02); EST Glomerular Filtration Rate 96 mL/min (>60); Est Glom Filt Rate - Afr Amer 116 mL/min (>60); Estimated Creatinine Clearance 39.59 ml/min; Glucose 95 mg/dL (74-106); Potassium 2.8 mmol/L (3.5-5.1); Sodium Level 147 mmol/L (136-145)
[2023-09-25 21:40] VITALS: RESP 18
[2023-09-25 21:49] VITALS: BP 154/72
[2023-09-25 21:58] VITALS: BP 165/69; PULSE 66; RESP 16; TEMP 36.5; O2SAT 99; BMI 45.1
[2023-09-25 22:00] VITALS: BP 165/69; PULSE 66; RESP 16; TEMP 36.5; O2SAT 99
[2023-09-25 22:03] VITALS: BMI 45.0
[2023-09-25 22:09] LABS: International Normalized Ratio 2.4; Prothrombin Time (Protime)PT. 26.4 SECONDS (11.7-14.9)
[2023-09-25] MEDS: Acetaminophen 325 MG Tablet 650 MG PO (22:58)
[2023-09-25] MEDS: oxyCODONE 5 MG Tablet PO (22:58)
[2023-09-26 03:00] VITALS: BP 150/58; PULSE 58; RESP 15; TEMP 36.5; O2SAT 95
[2023-09-26] MEDS: oxyCODONE 5 MG Tablet PO ×2 (05:03→11:32)
[2023-09-26] MEDS: Levothyroxine 112 MCG Tablet PO (05:03)
[2023-09-26 07:38] LABS: Absolute Lymphocyte Count 1.74 X10^3/uL (0.83-4.51); Absolute Neutrophil Count 7.9 X10^3/uL (2.0-7.7); Basophil# 0.03 X10^3/uL; Basophil% 0.3 % (0-1); Eosinophil# 0.07 X10^3/uL; Eosinophils% 0.7 % (0-5); Hematocrit 34.4 % (37-47); Hemoglobin 10.5 g/dL (12.0-15.0); Lymphocyte # 1.74 X10^3/ul (0.83-4.51); Lymphocyte % 16.4 % (19-41); Mean Corp Hgb Conc 30.5 g/dL (32-36); Mean Corpuscular Hgb 27.1 pg (27.0-32.0); Mean Corpuscular Volume 88.9 fL (81-99); Mean Platelet Vol. 11.1 fl (6.2-12.0); Monocyte# 0.78 X10^3/uL; Monocyte% 7.4 % (0-10); NRBC Flagged by Analyzer 0 % (0-5); Neutrophil # 7.93 X10^3/uL (2.7-7.7); Neutrophil % 74.9 % (47-70); Platelet Count 317 K/mm3 (150-450); RBC Distribution Width CV 14.6 % (11.6-14.6); RBC Distribution Width SD 47.6 fl (35.1-43.9); Red Blood Count 3.87 M/mm3 (4.2-5.4); White Blood Count 10.6 K/mm3 (4.4-11.0)
[2023-09-26 08:06] LABS: International Normalized Ratio 2.7; Prothrombin Time (Protime)PT. 29.1 SECONDS (11.7-14.9)
[2023-09-26 08:19] LABS: ALB/GLOB Ratio 0.9 RATIO (0.9-2.4); AST(SGOT) 15 U/L (15-37); Alanine Aminotransfer ALT/SGPT 24 U/L (13-56); Albumin, Serum 3.3 g/dL (3.2-5.0); Alkaline Phosphatase 39 U/L (45-117); Anion Gap 3 (5-15); BUN 26 mg/dL (7-18); BUN/Creat Ratio 22.6 RATIO (10-20); Calcium,Total 9.2 mg/dL (8.5-10.1); Chloride 109 mmol/L (98-107); Creatinine, Serum 1.15 mg/dL (0.55-1.02); EST Glomerular Filtration Rate 49 mL/min (>60); Est Glom Filt Rate - Afr Amer 59 mL/min (>60); Estimated Creatinine Clearance 34.43 ml/min; Globulin 3.6 g/dL (2.2-4.2); Glucose 120 mg/dL (74-106); Magnesium 2.1 mg/dL (1.6-2.6); Potassium 3.9 mmol/L (3.5-5.1); Protein, Total 6.9 g/dL (6.4-8.2); Sodium Level 136 mmol/L (136-145)
[2023-09-26 08:26] VITALS: O2SAT 94
[2023-09-26 08:58] VITALS: BP 126/65; PULSE 68; RESP 17; TEMP 36.6; O2SAT 99
[2023-09-26] MEDS: metFORMIN (XR) 500 MG Tablet PO (09:05)
[2023-09-26] MEDS: Lisinopril 40 MG Tablet PO (09:05)
[2023-09-26] MEDS: Atenolol 25 MG Tablet PO (09:05)
[2023-09-26] MEDS: Fenofibrate 145 MG Tablet PO (09:05)
[2023-09-26] MEDS: Tolterodine Tartrate 2 MG CAP.SA PO (09:06)
[2023-09-26] MEDS: Acetaminophen 325 MG Tablet 650 MG PO (09:06)
[2023-09-26] MEDS: Isosorbide Mononitrate 30 MG Tablet PO (09:06)
[2023-09-26] MEDS: Magnesium Chloride 64 MG Delay Rel.Tablet 256 MG PO (09:06)
[2023-09-26 09:57] LABS: Vitamin D,25 Hydroxy 30.8 ng/mL
--- NOTE | 2023-09-26 11:52 | DS.PCM_ITS ---
Providers Date of Admission: 09/25/23 Date of Discharge: 09/26/23 Primary Care Physician: Dr. Earlene Rosario MD Reason For Visit: FALL, RIGHT HIP & RIGHT LEG PAIN Diagnosis Discharge Diagnosis (1) Debility: Status: Acute Code(s): R53.81 - Other malaise (2) Contusion of hip, right: Status: Acute Code(s): S70.01XA - Contusion of right hip, initial encounter Qualifiers: Encounter type: initial encounter Qualified Code(s): S70.01XA - Contusi on of right hip, initial encounter (3) Fall: Status: Acute Code(s): W19.XXXA - Unspecified fall, initial encounter Qualifiers: Encounter type: initial encounter Qualified Code(s): W19.XXXA - Unspecified fall, initial encounter (4) Leg pain, right: Status: Acute Code(s): M79.604 - Pain in right leg Plan #R leg pain after fall #Chronic diarrhea #Hpernatremia and hyperchloremia #renal insufficiency 2/2 dehydration Medications at Discharge Home Medications aspirin 81 mg chewable tablet 81 mg PO QHS 05/10/14 levothyroxine 112 mcg tablet 112 mcg PO DAILY 05/10/14 nitroglycerin 0.4 mg sublingual tablet 0.4 mg sublingual Q5M PRN Chest Pain 05/10/14 fenofibrate 160 mg tablet 160 mg PO DAILY 09/14/19 magnesium oxide 400 mg (241.3 mg magnesium) tablet 800 mg PO BID 10/27/19 atenolol 25 mg tablet 25 mg PO DAILY 07/10/20 atorvastatin 40 mg tablet 40 mg PO QHS 07/10/20 hydrocortisone 2.5 % topical cream 1 applic topical BID PRN Itching 07/10/20 isosorbide mononitrate 30 mg tablet,extended release 24 hr 30 mg PO DAILY #90 tabs 08/10/20 warfarin 5 mg tablet 5 mg PO DAILY 04/24/22 solifenacin 5 mg tablet 5 mg PO DAILY 07/18/22 fosinopril 40 mg tablet 40 mg PO BID this is a dose increase #60 tabs 09/01/23 amlodipine 5 mg tablet 5 mg PO DAILY #30 tabs 09/11/23 hydrocodone-acetaminophen 5-325mg 5mg-325mg 1 tab PO Q6H PRN PRN Pain 3 days #10 TABLETS 09/25/23 Hospital Course Summary of Care Provided Minutes Spent on Discharge: 35 Hospital Course: Per HPI: YOBANI REID, is a 78 F with a significant history of CAD status post 3 stents; pulmonary embolism x2 and on Coumadin; hypertension and diabetes mellitus who presented to emergency department with a fall on the same day of pr esentation. Reportedly patient was walking her neighbors dog. The dog attempted to pick a bone on the ground. However, patient did not want the dog picking the bone. And in the process of preventing the dog from picking the bone; patient's leg and the dog's leg got entangled and patient fell. With the fall she reports excruciating pain in her right hip. Also she scraped her right elbow. Reportedly patient was given 100 mg of fentanyl by the squad. At the emergency department because patient persistently had pain she felt she could not go home and is looking into getting into a possible rehabilitation program as she lives at home by herself. INTERVAL HISTORY: On presentation allegedly white blood cell count 18.4, sodium 147, chloride 128 for bicarb of 15 and BUN 19 and creatinine of 0.64. Patient white blood cell count resolved and sodium and chloride improved independent of intervention and with just supportive care. Query if initial labs were accurate given that they were drawn 3 hours apart and were drastically different with no intervention, suspect labs repeated at 2 AM are the accurate labs. Did have slight bump in BUN and creatinine but again do not think the initial labs were accurate. The patient does report chronic diarrhea and is still on her magnesium and metformin and received her PREETI inhibitor. Patient doing very well aside from her pain complaints, seen by physical therapy and it was felt that she was a good candidate for med rehab. Suspect with improvement of her diarrhea and medication adjustments as well as increasing p.o. intake kidney fun ction will improve or maintain as it is possible that this is baseline, intend to discontinue metformin and magnesium and hold her PREETI inhibitor and BMP can be rechecked but given patient's clinical stability do not think she needs inpatient hospitalization and is appropriate for med rehab at this time. Patient discharged med rehab in stable condition. Discharge instructions as follows: - Please hold your lisinopril twice daily for 1 week and recheck kidney function in 3 days to verify this is improving -You have indicated you have been having diarrhea causing dehydration, recommend holding magnesium supplementation and your metformin to assess if this helps diarrhea. Please proceed with your colonoscopy as scheduled in October -Continue routine INR monitoring -Please call your primary care provider's office upon discharge to schedule a hospital follow up within 1 week. -For any concerning signs or symptoms please call 911 or proceed to the nearest emergency department Physical Exam Narrative General: Alert, oriented, no apparent distress HEENT: Atraumatic, normocephalic Eyes: Anicteric, normal conjunctiva, extraocular movements grossly intact Neck: Supple Respiratory: Clear to auscultation bilaterally, normal respiratory effort Cardiovascular: Regular rate and rhythm GI: Soft, nontender, nondistended Extremities: No edema Musculoskeletal: Moving all extremities Neuro: No overt focal neurological deficits Skin: No rashes appreciated Psych: Cooperative Weight / BMI Weight Weight: 115.212 kg Body Mass Index (BMI) 45.0 ABG / Lab / Microbiology Data 09/26/23 06:45 09/26/23 01:59 Laboratory: Laboratory Results - last 24 hr 09/25/23 20:45: WBC 18.4 H, RBC 4.39, Hgb 12.0, Hct 38.9, MCV 88.6, MCH 27.3, MCHC 30.8 L, RDW Std Deviation 46.5 H, RDW Coeff of Angelina 14.4, Plt Count 344, MPV 10.9, Immature Gran % (Auto) 0.700, Neut % (Auto) 87.3 H, Lymph % (Auto) 6.8 L, [place] % (Auto) 4.7, Eos % (Auto) 0.1, Baso % (Auto) 0.4, Absolute Neuts (auto) 16.1 H, Absolute Lymphs (auto) 1.25, Nucleated RBC % 0, Sodium 147 H, Potassium 2.8 L, Chloride 128 H*, Carbon Dioxide 15.0 L, Anion Gap 4 L, BUN 19 H, Creatinine 0.64, Estim Creat Clear Calc 39.59, Est GFR (MDRD) Af Amer 116, Est GFR (MDRD) Non-Af 96, BUN/Creatinine Ratio 29.8 H, Glucose 95, Calcium 5.2 L* 09/25/23 21:45: PT 26.4 H, INR 2.4 09/26/23 01:59: Sodium 136, Potassium 3.9, Chloride 109 H, Carbon Dioxide 24.0, Anion Gap 3 L, BUN 26 H, Creatinine 1.15 H, Estim Creat Clear Calc 34.43, Est GFR (MDRD) Af Amer 59 L, Est GFR (MDRD) Non-Af 49 L, BUN/Creatinine Ratio 22.6 H , Glucose 120 H, Calcium 9.2, Magnesium 2.1, Total Bilirubin 0.60, AST 15, ALT 24, Alkaline Phosphatase 39 L, Total Protein 6.9, Albumin 3.3, Globulin 3.6, Albumin/Globulin Ratio 0.9 09/26/23 06:45: WBC 10.6, RBC 3.87 L, Hgb 10.5 L, Hct 34.4 L, MCV 88.9, MCH 27.1, MCHC 30.5 L, RDW Std Deviation 47.6 H, RDW Coeff of Angelina 14.6, Plt Count 317, MPV 11.1, Immature Gran % (Auto) 0.300, Neut % (Auto) 74.9 H, Lymph % (Auto) 16.4 L, [place] % (Auto) 7.4, Eos % (Auto) 0.7, Baso % (Auto) 0.3, Absolute Neuts (auto) 7.9 H, Absolute Lymphs (auto) 1.74, Nucleated RBC % 0, PT 29.1 H, INR 2.7, Vitamin D 25-Hydroxy 30.8 Radiography Diagnostic Testing: Radiology Impression Femur X-Ray 09/25/23 17:51 IMPRESSION: Negative right femur x-rays. Electronically Signed: Kun Gonzales MD at 18:19 EDT , Pelvis X-Ray 09/25/23 17:51 IMPRESSION: No evidence of displaced pelvic fracture. Electronically Signed: Kun Gonzales MD at 18:34 EDT , D/C Instructions Discharge Diet: No restrictions Meaningful Use Info Meaningful Use Diagnoses (Choose all that apply): None applicable Discharge Plan Admission Admit Date/Time: 09/25/23 20:52 Primary Reason for Your Visit: Right hip pain Attending Provider: Radha Arriaga Primary Care Provider: Earlene Rosario Consulting Providers: Yonatan Portillo Instructions Patient Instructions: ED Mechanical Fall, ED Hip Contusion Additional Instructions / Restrictions: DISCHARGE INSTRUCTIONS PLEASE READ *Please take this with you to your next doctors appointment* - Please hold your lisinopril twice daily for 1 week and recheck kidney function in 3 days to verify this is improving -You have indicated you have been having diarrhea causing dehydration, recommend holding magnesium supplementation and your metformin to assess if this helps diarrhea. Please proceed with your colonoscopy as scheduled in October -Continue routine INR monitoring -Please call your primary care provider's office upon discharge to schedule a hospital follow up within 1 week. -For any concerning signs or symptoms please call 911 or proceed to the nearest emergency department Discharge Orders/Prescriptions Prescriptions: New hydrocodone-acetaminophen 5-325 mg tablet 1 tab PO Q6H PRN PRN (Reason: Pain) 3 Days Qty: 10 0RF Continued fenofibrate 160 mg tablet 160 mg PO DAILY hydrocortisone 2.5 % cream 1 applic TOPICAL BID PRN (Reason: Itching) atorvastatin 40 mg tablet 40 mg PO QHS atenolol 25 mg tablet 25 mg PO DAILY nitroglycerin 0.4 MG tablet 0.4 mg SUBLINGUAL Q5M PRN (Reason: Chest Pain) Patient Comments: heart levothyroxine 112 MCG tablet 112 mcg PO DAILY Patient Comments: syhtroid aspirin 81 MG tablet,chewable 81 mg PO QHS Patient Comments: heart solifenacin 5 mg tablet 5 mg PO DAILY isosorbide mononitrate 30 mg tablet extended release 24 hr 30 mg PO DAILY Qty: 90 3RF warfarin 5 mg tablet 5 mg PO DAILY Protocol: Dose Management Protocol Text: Patient Instructed to take: warfarin 5 mg (1 Tab) on , , , SA warfarin 5 mg (1.5 Tabs) on , , Rx Instructions: Current dose 7.5 mg 2 days per week, 5 mg all others. Managed by Dr. Rosario amlodipine 5 mg tablet 5 mg PO DAILY Qty: 30 11RF Held magnesium oxide 400 mg (241.3 mg magnesium) tablet 800 mg PO BID Hold Instructions: Resume on 10/01/23. Patient Comments: magnesium fosinopril 40 mg tablet 40 mg PO BID Qty: 60 11RF Hold Instructions: Resume on 10/01/23. Discontinued metformin 500 mg tablet extended release 24 hr 500 mg PO DAILY meclizine 25 MG tablet 25 mg PO TID PRN PRN (Reason: Vertigo) Qty: 20 0RF Referrals / Follow Up: Earlene oRsario MD [Primary Care Provider] - Within 1 Week Disposition Disposition (needs filled in before D/C Order can be placed): Inpatient Rehab Unit/Facility Charges/Coding Visit Charges Inpatient E&M: 15018 Disch Hosp >30min
--- NOTE | 2023-09-26 12:11 | NURSING ---
Report called to Inpatient director of student servicesPERLA Pemberton.
--- NOTE | 2023-09-26 12:15 | CASEMGMT ---
Therapy informed SW that patient will need rehab. Therapy feels patient would be a good candidate for Acute Rehab. Patient is Medicare under observation status. Therefore, patient would be private pay if she went to a longterm. SW met with patient, introduced self and role at [facility]. SW explained to patient that if she went to a longterm it would be private pay as she is observation status. SW explained she could go to Acute Rehab and it would be paid for by insurance. SW told patient [facility] has an Acute Rehab and there are also other Acute Rehab Units in [facility]. Patient declined a list as she wants to stay in [place]. SW made a referral to Acute Rehab and patient was accepted. Plan: d/c to [facility] Acute Rehab Unit. Kristine DRISCOLL
[2023-09-26 12:22] LABS: Bedside Glucose 134 mg/dL (74-106)
[2023-09-30 14:09] LABS: Vitamin D 1,25-Dihydroxy 37.2 pg/mL (24.8-81.5)
== END 2023-09-26 11:52 ==
LOC: ED 20:24 → PCU 21:03
PROVIDERS: Admitting Provider Hospitalist; Emergency Provider Emergency Medicine; PCP Internal Medicine; Visit Provider Internal Medicine
DX: S70.01XA Contusion of right hip, initial encounter (principal); E11.9 Type 2 diabetes mellitus without complications; R53.81 Other malaise; I25.10 Atherosclerotic heart disease of native coronary artery without angina pectoris; Z79.84 Long term (current) use of oral hypoglycemic drugs; E78.00 Pure hypercholesterolemia, unspecified; Z87.891 Personal history of nicotine dependence; Z79.82 Long term (current) use of aspirin; Y93.K1 Activity, walking an animal; I10 Essential (primary) hypertension; E03.9 Hypothyroidism, unspecified; Z79.899 Other long term (current) drug therapy; Z79.890 Hormone replacement therapy; Z79.01 Long term (current) use of 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s; Z86.711 Personal history of pulmonary embolism; K21.9 Gastro-esophageal reflux disease without esophagitis; W19.XXXA Unspecified fall, initial encounter; Y92.89 Other specified places as the place of occurrence of the external cause; E87.0 Hyperosmolality and hypernatremia; K52.9 Noninfective gastroenteritis and colitis, unspecified; E87.8 Other disorders of electrolyte and fluid balance, not elsewhere classified; E86.0 Dehydration; N28.9 Disorder of kidney and ureter, unspecified
CPT/HCPCS: 36415; 72170; 73552; 80048; 80053; 82306; 82652; 82962; 83735; 85025; 85610; 97162; 97166; 97802; 99221; 99285; G0378

== ENCOUNTER 2023-09-26 13:10 | Inpatient (IN) | payer MEDICARE, OTHER, SELFPAY ==
[2020-02-07 08:24] VITALS: BMI 45.7
[2023-09-26 13:16] VITALS: BP 96/44; PULSE 55; RESP 16; TEMP 36.6; O2SAT 97; BMI 40.1
[2023-09-26 14:18] VITALS: PULSE 55; RESP 16
--- NOTE | 2023-09-26 15:47 | HP.PCM_ITS ---
[facility] - General General Date of Admission: 09/26/23 Date of Service: 09/26/23 Chief Complaint: Intractable pain RLE post fall, unable to ambulate. HPI Narrative YOBANI REID, is a 78 F YO with a PMH of PE's on 2 different occasions, chronic anticoagulation with Warfarin, HTN, hyperlipidemia, obesity, CAD, PTCA X 3 stents, remote tobacco dependence, DM II, hypothyroidism, benign paroxysmal positional vertigo and overactive bladder who presented to the ED at [facility] on 09/25/23 c/o of severe RLE pain after a fall. X-rays of the right hip and pelvis were negative for fracture. She was unable to ambulate and she lives by herself. She was admitted to the hospitalist service and SW was consulted for disposition. She was seen by PT/OT. She could not fully extend or flex the R knee. She required moderate assistance of 2 people to go from supine to sitting. She required minimal to moderate assistance of 1 person to go from sitting to standing and standing caused increased pain. She ambulated 20'X1 and had severe pain. She was very heavily leaning on the WW. INPT acute rehab was recommended. She was transferred to the acute inpatient rehab unit at [facility] on 09/26/2023 for 3 hours of therapy daily to restore function/independence at or near her level prior to the fall. She has been having falls in the past 6 months onto her knees. She can not kneel due to pain and she is unable to get up if she falls. An x-ray of the left knee in March of this year after a fall showed tricompartmental arthrosis and soft tissue swelling. She has difficulty climbing steps. She tells me that her R knee feels as though it is going to buckle. The pain is worse in the lateral upper thigh and lateral R hip. She denies paresthesias and describes the pain as aching. The pain escalates with weight bearing. The EMR was reviewed personally. INR was 2.7 today and she has been taking alternating 7.5 mg on Friday and Friday with 5 mg on Friday and Friday. She has been having loose liquid stool all summer and she has fecal incontinence. She denies abd pain. She has not had a GI consult or a colonoscopy. [facility] Medical History (Updated 09/30/23 @ 14:[address] 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 nursing home current use of 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 Mixed hyperlipidemia Obesity Post-menopausal Preop cardiovascular exam Presence 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 (10/25/19) Pulmonary embolism (08/2017) RBBB (right bundle branch block) Thyroid disease Wears glasses Home Medications aspirin 81 mg chewable tablet 81 mg PO QHS hearth 05/10/14 [History Last Taken 10/25/19] levothyroxine 112 mcg tablet 112 mcg PO DAILY thyroid 05/10/14 [History Last Taken 10/25/19] nitroglycerin 0.4 mg sublingual tablet 0.4 mg sublingual Q5M PRN Chest Pain 05/10/14 [History Last Taken Unknown] fenofibrate 160 mg tablet 160 mg PO DAILY cholesterol 09/14/19 [History Last Taken 10/25/19] magnesium oxide 400 mg (241.3 mg magnesium) tablet 800 mg PO BID suppliment 10/27/19 [History Last Taken Unknown] atenolol 25 mg tablet 25 mg PO DAILY blood pressure 07/10/20 [History Last Taken Unknown] atorvastatin 40 mg tablet 40 mg PO QHS cholestorol 07/10/20 [History Last Taken Unknown] hydrocortisone 2.5 % topical cream 1 applic topical BID PRN Itching 07/10/20 [History Last Taken Unknown] isosorbide mononitrate 30 mg tablet,extended release 24 hr 30 mg PO DAILY heart #90 tabs 08/10/20 [Rx Last Taken Unknown] warfarin 5 mg tablet 5 mg PO SUTHFRSA blood thinner 04/24/22 [History Last Taken Unknown] solifenacin 5 mg tablet 5 mg PO DAILY bladder 07/18/22 [History Last Taken Unknown] fosinopril 40 mg tablet 40 mg PO BID this is a dose increase #60 tabs 09/01/23 [Rx Last Taken Unknown] amlodipine 5 mg tablet 5 mg PO DAILY blood presure #30 tabs 09/11/23 [Rx Last Taken Unknown] hydrocodone-acetaminophen 5-325mg 5mg-325mg 1 tab PO Q6H PRN PRN Pain 3 days #10 TABLETS 09/25/23 [Rx Last Taken Unknown] warfarin 7.5 mg tablet 7.5 mg PO MOTUWE blood thinner 09/26/23 [History Last Taken Unknown] Allergy/AdvReac Type Severity Reaction Status Date / Time adhesive Allergy Rash Verified 09/25/23 17:41 amoxicillin [Amoxicillin] Allergy Rash Verified 09/25/23 17:41 ampicillin Allergy Rash Verified 09/25/23 17:41 cephalexin monohydrate Allergy Rash Verified 09/25/23 17:41 [From Keflex] Penicillins Allergy Rash Verified 09/25/23 17:41 Sulfa (Sulfonamide Allergy Rash Verified 09/25/23 17:41 Antibiotics) Family History Father CAD (coronary artery disease) Mother CVA (cerebral vascular accident) Hypertension Surgical History H/O hernia repair History of appendectomy History of cardiac catheterization History of heart artery stent Presence of coronary angioplasty implant and graft (~10/06/09) S/P cardiac catheterization S/P carpal tunnel release S/P colonoscopy (~05/2013) S/P hysterectomy S/P tonsillectomy S/P trigger finger release Social History (Updated 09/26/23 @ 17:[address] Jennifer Black DO) household members: none housing: house number of children: 0 current occupational status: retired pets and animals: No Smoking Status: Former smoker how long ago did patient quit smokin yrs alcohol intake: current alcohol intake frequency: holidays/special occasions only Alcohol type: wine substance use type: does not use caffeine: No ROS Constitutional Constitutional: Reports weakness; Denies anorexia, change in weight, chills, fatigue, fever(s) or night sweats Eyes Eyes: Denies blurry vision, change in vision, eye pain or loss of vision ENT HEENT: Denies abnormal hearing, dysphagia, headache(s), hearing loss, nasal congestion or sore throat Cardiovascular Cardiovascular: Reports dyspnea on exertion and edema; Denies chest pain, lightheadedness, orthopnea, palpitations, paroxysmal nocturnal dyspnea or syncope Respiratory/Chest Respiratory/Chest: Reports shortness of breath with exertion; Denies cough, dyspnea, shortness of breath at rest or wheezing Gastrointestinal Gastrointestinal: Reports constipation; Denies abdominal pain, diarrhea, dyspepsia, hematemesis, hematochezia, nausea or vomiting Genitourinary Genitourinary: Denies dysuria, hematuria, nocturia, urinary frequency, urinary hesitancy, urinary incontinence or urinary urgency Musculoskeletal Musculoskeletal: Reports arthralgias, difficulty walking, extremity pain and myalgias; Denies back pain, joint pain, joint swelling or neck pain Neurologic Neurologic: Reports disequilibrium; Denies confusion, dizziness, focal weakness, headache(s), paresthesias, seizures or tremor(s) Psychiatric Psychiatric: Denies anxiety, depression, homicidal ideation or suicidal ideation Endocrine Endocrinology: Denies change in body appearance, polydipsia or polyuria Hematologic/Lymphatic Hematologic/Lymphatic: Denies easy bleeding, easy bruising or lymphadenopathy Allergic/Immunologic Allergic/Immunologic: Denies rhinitis, eczemia or asthma Vital Signs Vital Signs Vital Signs: 09/26/23 13:16 09/26/23 14:18 Temperature 97.8 F Temperature Source Temporal Pulse Rate 55 L 55 L Respiratory Rate 16 16 Respiratory Effort Normal Non-Labored Blood Pressure 96/44 L Blood Pressure Mean 61 Blood Pressure Source Manual Blood Pressure Position Sitting Blood Pressure Location Left Arm Pulse Ox 97 Oxygen Delivery Method Room Air Room Air Physical Exam Const alert, oriented x3, healthy appearing and well nourished Constitutional Narrative: Sitting in the recliner with her legs elevated. Denies pain at the present time. She tells me her pain is primarily with weightbearing. Prior to the fall she was having BL knee pain and she can not kneel. She can not get up when she falls. The Left knee at times feels as though it is going to buckle. General Appearance: cooperative and well kempt HEENT normocephalic, head/scalp atraumatic and hearing grossly normal bilaterally HEENT Narrative: Dry mucous membranes Eyes EOMs intact bilaterally, conjunctivae normal and no scleral icterus Eyes Narrative: No mattering of the eyelashes and no discharge from the eyes. Neck supple General: normal visual inspection and trachea midline; Negative for lymphadenopathy Chest Chest: symmetrical chest wall rise Resp normal respiratory effort, no use of accessory muscles and clear to auscultation bilaterally Effort and Inspection: able to speak in complete sentences Cardio regular rate, regular rhythm, S1 normal heart sound, S2 normal heart sound, no rub, no gallops and no clicks Cardio Narrative: Distant heart sounds. She has a soft systolic murmur at the second right intercostal space that radiates to the lower sternal border and apex. GI normal to inspection, nondistended, normoactive bowel sounds, soft to palpation and non-tender GI Narrative: No guarding with palpation. No hepatosplenomegaly. No masses. Back/Spine no CVA tenderness and normal to inspection Extremity no calf tenderness and no pedal edema Extremity Narrative: The right upper extremity has a large bruise and skin tear extending from the mid forearm to the mid humeral shaft. There is no purulent discharge, no odor and no periwound erythema. Large superficial varicosities of the LE's. General Extremity: Negative for clubbing or cyanosis Skin no jaundice Skin Narrative: She has ecchymosis on the R upper extremity extending from above the elbow to the mid forearm on the lateral flexor area. There is no purulent DC but, there is some serous drainage form the 2 skin tears located within the area of ecchymosis. There is no periwound erythema and no odor. Rashes: no rashes Neuro oriented x3, CN's II-XII intact bilaterally, no focal motor deficits and no sensory deficits noted Neuro Narrative: abnormal gait due to pain in the R hip to knee area. Sensorium / Orientation: awake and alert Psych mental status grossly normal, thought process normal, cooperative, affect normal, denies hallucinations and denies suicidal ideation Appearance: grossly normal Attitude: calm Activity / Motor Behavior: appropriate eye contact Speech: normal speech Results Lab / Micro Data 09/27/23 06:22 09/27/23 06:22 Assessment & Plan Assessment/Plan (1) Debility: (2) Fall: QUALIFIERS: Encounter type: initial encounter Qualified Code(s): W19.XXXA - Unspecified fall, initial encounter (3) Leg pain, right: (4) Contusion, hip and thigh: QUALIFIERS: Encounter type: subsequent encounter Laterality: right Qualified Code(s): S70.01XD - Contusion of right hip, subsequent encounter; S70.11XD - Contusion of right thigh, subsequent encounter (5) Lumbar strain: QUALIFIERS: Encounter type: subsequent encounter Qualified Code(s): S39.012D - Strain of muscle, fascia and tendon of lower back, subsequent encounter (6) 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 transplanted heart: [place] heart Qualified Code(s): I25.10 - Atherosclerotic heart disease of [place] coronary artery without angina pectoris (13) Obesity: QUALIFIERS: Body mass index: BMI 40.0-44.9 Obesity classification: adult class 3 (BMI >= 40) Obesity type: due to excess calories Serious obesity comorbidity presence: with serious comorbidity Qualified Code(s): E66.01 - Morbid (severe) obesity due to excess calories; Z68.41 - Body mass index [BMI] 40.0-44.9, adult (14) DM2 (diabetes mellitus, type 2): QUALIFIERS: Diabetes mellitus complication detail: with other circulatory complications Diabetes mellitus complication status: with circulatory complication Diabetes mellitus group home insulin use: without pass worker use Qualified Code(s): E11.59 - Type 2 diabetes mellitus with other circulatory complications PLAN: Diet controlled. Not on meds. PLAN: Plan PLAN PT for gait stability OT for ADL's Analgesics as needed Bowel protocol Fall precautions Assess for Anxiety/Depression GI prophylaxis not necessary at this time patient has no nausea and no epigastric pain. DVT prophylaxis -she is on warfarin with a therapeutic INR Follow up with PCP following DC from IP Rehab AM lab including CMP, CBC, Mag and Phos Pain is not adequately relieved at this time with as needed hydrocodone so we will schedule I tablet at 7 AM, noon and 5 PM and 2 tablets at 10 PM. Wean and convert to as needed as her pain improves. She has had 2 falls at least this past year. I think she should consider a regular exercise program to improve core strength and balance. Recheck an INR on Friday. Charges/Coding Visit Charges Inpatient E&M: 86583 Subs Hosp L2
[2023-09-26 16:29] LABS: Bedside Glucose 118 mg/dL (74-106)
[2023-09-26] MEDS: HYDROcodone Bitartrate/Apap 5/325 Tablet PO ×2 (17:58→21:24)
[2023-09-26 20:17] VITALS: BP 151/62; PULSE 56; RESP 18; TEMP 36.6; O2SAT 99
[2023-09-26 20:35] VITALS: PULSE 56
[2023-09-26] MEDS: Atorvastatin Calcium 40 MG Tablet PO (21:24)
[2023-09-26] MEDS: Aspirin 81 MG TAB.CHEW PO (21:24)
[2023-09-26 22:27] LABS: Bedside Glucose 139 mg/dL (74-106)
[2023-09-27] MEDS: Levothyroxine 112 MCG Tablet PO (06:32)
[2023-09-27] MEDS: HYDROcodone Bitartrate/Apap 5/325 Tablet PO ×4 (06:33→21:31)
[2023-09-27 06:38] LABS: Hemoglobin 9.9 g/dL (12.0-15.0); Mean Corp Hgb Conc 30.9 g/dL (32-36); Mean Corpuscular Hgb 27.6 pg (27.0-32.0); Mean Corpuscular Volume 89.1 fL (81-99); Mean Platelet Vol. 10.9 fl (6.2-12.0); Platelet Count 276 K/mm3 (150-450); RBC Distribution Width CV 14.3 % (11.6-14.6); RBC Distribution Width SD 46.7 fl (35.1-43.9); Red Blood Count 3.59 M/mm3 (4.2-5.4); White Blood Count 13.7 K/mm3 (4.4-11.0)
[2023-09-27 06:47] LABS: Prothrombin Time (Protime)PT. 31.5 SECONDS (11.7-14.9)
[2023-09-27 07:09] LABS: Bedside Glucose 124 mg/dL (74-106)
[2023-09-27 07:12] LABS: ALB/GLOB Ratio 0.9 RATIO (0.9-2.4); AST(SGOT) 24 U/L (15-37); Alanine Aminotransfer ALT/SGPT 25 U/L (13-56); Albumin, Serum 3.3 g/dL (3.2-5.0); Alkaline Phosphatase 38 U/L (45-117); Anion Gap 2 (5-15); BUN 19 mg/dL (7-18); BUN/Creat Ratio 17.8 RATIO (10-20); Calcium,Total 9.2 mg/dL (8.5-10.1); Chloride 104 mmol/L (98-107); Creatinine, Serum 1.07 mg/dL (0.55-1.02); EST Glomerular Filtration Rate 53 mL/min (>60); Est Glom Filt Rate - Afr Amer 64 mL/min (>60); Estimated Creatinine Clearance 38.63 ml/min; Globulin 3.8 g/dL (2.2-4.2); Glucose 126 mg/dL (74-106); Potassium 4.2 mmol/L (3.5-5.1); Protein, Total 7.1 g/dL (6.4-8.2); Sodium Level 132 mmol/L (136-145)
[2023-09-27 07:26] LABS: Phosphorus 2.1 mg/dL (2.5-4.9)
[2023-09-27 07:57] VITALS: BP 173/54; PULSE 65; RESP 17; TEMP 36.8; O2SAT 97
[2023-09-27] MEDS: Atenolol 25 MG Tablet PO (08:39)
[2023-09-27] MEDS: amLODIPine 5 MG Tablet PO (08:39)
[2023-09-27] MEDS: Fenofibrate 145 MG Tablet PO (08:39)
[2023-09-27] MEDS: Isosorbide Mononitrate 30 MG Tablet PO (08:40)
[2023-09-27] MEDS: Tolterodine Tartrate 2 MG CAP.SA PO (08:40)
[2023-09-27] MEDS: Miconazole Nitrate 43 GM Bottle 1 APPLIC TOPICAL ×2 (11:42→21:31)
[2023-09-27 12:02] LABS: Bedside Glucose 116 mg/dL (74-106)
[2023-09-27 16:56] LABS: Bedside Glucose 123 mg/dL (74-106)
[2023-09-27 19:57] VITALS: BP 137/57; PULSE 64; RESP 16; TEMP 36.7; O2SAT 97
[2023-09-27] MEDS: Aspirin 81 MG TAB.CHEW PO (21:30)
[2023-09-27] MEDS: Atorvastatin Calcium 40 MG Tablet PO (21:31)
[2023-09-27 22:02] LABS: Bedside Glucose 122 mg/dL (74-106)
[2023-09-28] MEDS: Levothyroxine 112 MCG Tablet PO (06:11)
[2023-09-28] MEDS: HYDROcodone Bitartrate/Apap 5/325 Tablet PO ×4 (06:11→21:26)
[2023-09-28 06:37] LABS: Bedside Glucose 71 mg/dL (74-106)
--- NOTE | 2023-09-28 06:40 | NURSING ---
Pt's blood sugar this morning 71, asymptomatic- ate Berta [employer]one cookies prior to breakfast arriving.
[2023-09-28 07:18] VITALS: BP 136/62; PULSE 64; RESP 18; TEMP 36.6; O2SAT 94
[2023-09-28] MEDS: amLODIPine 5 MG Tablet PO (08:31)
[2023-09-28] MEDS: Fenofibrate 145 MG Tablet PO (08:31)
[2023-09-28] MEDS: Tolterodine Tartrate 2 MG CAP.SA PO (08:31)
[2023-09-28] MEDS: Isosorbide Mononitrate 30 MG Tablet PO (08:31)
[2023-09-28] MEDS: Miconazole Nitrate 43 GM Bottle 1 APPLIC TOPICAL ×2 (08:32→21:27)
[2023-09-28] MEDS: Atenolol 25 MG Tablet PO (08:32)
[2023-09-28 12:16] LABS: Bedside Glucose 116 mg/dL (74-106)
[2023-09-28 17:23] LABS: Bedside Glucose 122 mg/dL (74-106)
[2023-09-28 19:44] VITALS: BP 116/72; PULSE 82; RESP 16; TEMP 36.7; O2SAT 97
[2023-09-28] MEDS: Aspirin 81 MG TAB.CHEW PO (21:25)
[2023-09-28] MEDS: Atorvastatin Calcium 40 MG Tablet PO (21:25)
[2023-09-28 22:15] LABS: Bedside Glucose 118 mg/dL (74-106)
[2023-09-29 06:00] VITALS: BMI 43.3
[2023-09-29] MEDS: Levothyroxine 112 MCG Tablet PO (06:10)
[2023-09-29] MEDS: HYDROcodone Bitartrate/Apap 5/325 Tablet PO ×4 (06:10→21:14)
[2023-09-29 06:39] LABS: International Normalized Ratio 2.8; Prothrombin Time (Protime)PT. 29.9 SECONDS (11.7-14.9)
[2023-09-29 06:49] LABS: Bedside Glucose 113 mg/dL (74-106)
[2023-09-29 08:26] VITALS: BP 136/70; PULSE 62; RESP 18; TEMP 36.4; O2SAT 97
[2023-09-29] MEDS: Tolterodine Tartrate 2 MG CAP.SA PO (08:30)
[2023-09-29] MEDS: Isosorbide Mononitrate 30 MG Tablet PO (08:30)
[2023-09-29] MEDS: Atenolol 25 MG Tablet PO (08:30)
[2023-09-29] MEDS: amLODIPine 5 MG Tablet PO (08:30)
[2023-09-29] MEDS: Miconazole Nitrate 43 GM Bottle 1 APPLIC TOPICAL ×2 (08:32→21:12)
[2023-09-29] MEDS: Fenofibrate 145 MG Tablet PO (10:41)
--- NOTE | 2023-09-29 13:32 | CASEMGMT ---
Social Work IDT met with patient and niece for Team meeting. Discussed patient's progress in PT/OT/SN. Educated to Medicare approval of 13 days with DC 10/09. Pt's goal is to return home alone with HHC or OP therapy. SW will continue to follow for DC planning. Will ReTeam weekly. BETH CejaW
[2023-09-29 16:08] LABS: Immunoglobulin A 108 mg/dL (64-422); t-Transglutaminase IgA <2 U/mL (0-3)
--- NOTE | 2023-09-29 18:49 | PCM.RU.PYE ---
Admission Information Primary Diagnosis:: Debility secondary to a fall from ground-level with severe right hip and leg pain inhibiting her ability to walk. Status Changes from Prescreening?: No changes Identified Actual Problem List:: Falls, Skin Intergrity, Pain, ALteration in Cmfrt, Bowel, Constipation, Alteration in Sleep, Mobility Impaired, Self Care Deficit, Fluid Change-Dehydration and Alteration-Leisure Activ. Potential Problem List:: DVT, Bleeding, Infection, UTI, Aspiration, Falls, Skin Integrity and Depression Risk of Complications DVT: UNA Hose and - (Continue warfarin) Bleeding: Monitor Lab Values, Nursing to Teach Precautions for anti-coagulation therapy., Wound, if applicable, to be assessed every shift. and Stroke patients assessed for lethargy or change in status. Infection: Clinical Staff to Monitor for S/S of infection: and S/S of infection include fever, redness, warmth, etc. Urinary Tract Infection: Monitor for frequency, burning, discomfort, or incontinence. and Nursing will obtain urine sample for urinalysis and C&S when ordered. Aspiration: Clinical staff will monitor for coughing, drooling, congestion., Speech will evaluate swallowing and dsyphasia. and Nursing will monitor patient swallowing during meals. Falls: Patient will be evaluated for Fall Precautions and Patient will be placed on Fall Precautions as indicated per protocol. Skin Breakdown: Nursing will assess skin daily using assessment tool. and Nursing will place on Skin Breakdown Precautions as indicated. Pain: Clinical staff will assess patient's pain level per protocol., Medications will be given, if needed, and the pain level reassessed. and Other methods: Massage, distraction, decrease stimulus, etc. used PRN. Plan of Care Patient requires physician specializing in physical medicine and rehab oversight to provide close medical supervision of rehab issues including: Pain Management, Sleep Problems, Bowel and Bladder, Medical and co-morbidity Management, DVT prophylaxis, Rehabilitation Leadership and Coordination of treatment team Patient needs Physical Therapy: For a minimum of 1 hour and At least 5 out of 7 days Patient needs Physical Therapy to improve:: Mobility, Strengthening, Transfers, Stretching, ROM, Endurance, Stairs, Gait and Balance Patient needs Occupational Therapy: For a minimum of 1 hour and At least 5 out of 7 days Patient needs Occupational Therapy to improve ADL's incl.: Eating, Grooming, Bathing, Dressing, Toileting, Toilet transfers, Community Reintegration, Higher functioning activities, Household tasks, Adaptive Equipment, Splinting and Other activities as determined Patient requires 24/7 Rehabilitation Nursing for: Pain Issues, Identifying and preventing risk factors, Monitoring and reporting current medical conditions, Assisting with ambulation, transfer, and all ADL's, Teaching patients about disease process and medications, Family teaching, Providing safe environment, Bowel and Bladder Issues, Skin integrity and Medication Management Patient needs Mat Inspector/ Case Management for: Discharge Planning, Arranging Home Equipment or Services and Family Interventions Patient needs Dietary and Nutrition Services for: Adequate Nutrition, Nutritional Supplements and Nutritional Education Goals Patient will remain: free from falls Patient will perform bed mobility at: MOD I level of assist. Patient will complete transfers from bed to chair at: MOD I level of assist. Patient will ambulate: - (150 feet with the least restrictive device) Patient will complete upper body dressing at: MOD I level of assist. Patient will complete lower body dressing at: MOD I level of assist. Patient will complete toileting at: MOD I level of assist. Patient will perform bathing at: MOD I level of assist. Patient will complete grooming at: MOD I level of assist. Patient will complete home management skills at: MOD I level of assist. Patient will achieve: - (1 curb step and 3 regular steps with 1 handrail at mod I to allow access to her vehicle in her home.) Patient will have pain level of: of 3 or less Patient's skin will: remain intact (She currently has a skin tear on the R forearm ) Patient will receive: adequate nutrition. Discharge Planning Pt Prognosis for Sig. Practical Improv. w/in Reasonable Time: Good Estimated Length of stay (days): 14 Anticipated D/C Destination: Home with Outpt Therapy Was Preadmission Assessment Accurate?: Yes
--- NOTE | 2023-09-29 18:50 | PN_ITS ---
Subjective Subjective She was seen on team rounds today. Her niece Moira was present for rounds. Afebrile VSS Maintaining appropriate oxygen saturation on RA Oral intake is good Discussed with nursing - no problems that need addressed Reviewed the PT/OT notes Medication list reviewed. I observed her ambulating in the love with a front wheeled walker today and she was smiling. She tells me her pain is well controlled at this time and she feels she is making progress. She tells me that her pain is in much better control with the scheduling of the pain meds. Pao denies vertigo, lightheadedness, chest pain, cough, shortness of breath, nausea/vomiting/abdominal pain, dysuria and calf pain. Objective Data Objective Data Vital Signs: Vital Signs Temp Pulse Resp BP Pulse Ox O2 Del Method 97.5 F L 62 18 136/70 H 97 Room Air 09/29/23 08:26 09/29/23 08:26 09/29/23 08:26 09/29/23 08:26 09/29/23 08:26 09/29/23 08:26 Oxygen Delivery Method Room Air Weight: 252 lb 10.396 oz Body Mass Index (BMI) 43.3 Intake & Output: Intake and Output for Last 24 Hours 09/27/23 09/28/23 09/29/23 23:59 23:59 23:59 Intake Total 1000 / 1250 1900 / 2050 463 / 463 Output Total 1650 / 1950 1850 / 2100 550 / 550 Balance -650 / -700 50 / -50 -87 / -87 Lab / Micro Data 09/27/23 06:22 09/27/23 06:22 Labs: Laboratory Results - last 24 hr 09/27/23 06:22: IgA 108, Tiss Transglutamin IgA <2 09/28/23 21:31: POC Glucose 118 H 09/29/23 05:20: PT 29.9 H, INR 2.8 09/29/23 06:29: POC Glucose 113 H Micro: Microbiology 09/28/23 08:40 Stool Stool Lactoferrin - Final Physical Exam Const alert, oriented x3, healthy appearing and well nourished Constitutional Narrative: She is sitting in the recliner and she is smiling and laughing. She looks much more comfortable than at admission. General Appearance: cooperative Resp normal respiratory effort, no use of accessory muscles and clear to auscultation bilaterally Effort and Inspection: able to speak in complete sentences Cardio regular rate, regular rhythm, no rub, no gallops and no clicks Cardio Narrative: Distant heart sounds. She has a soft systolic murmur at the second right intercostal space that radiates to the lower sternal border and apex. GI normal to inspection, nondistended, normoactive bowel sounds, soft to palpation and non-tender GI Narrative: No guarding with palpation. No hepatosplenomegaly. No masses. Extremity no calf tenderness and no pedal edema Extremity Narrative: The right upper extremity has a large bruise and skin tear extending from the mid forearm to the mid humeral shaft. There is no purulent discharge, no odor and no periwound erythema. Large superficial varicosities of the LE's. Skin no jaundice Rashes: no rashes Assessment & Plan Assessment/Plan (1) Debility: (2) Fall: QUALIFIERS: Encounter type: initial encounter Qualified Code(s): W19.XXXA - Unspecified fall, initial encounter (3) Leg pain, right: (4) Contusion, hip and thigh: QUALIFIERS: Encounter type: subsequent encounter Laterality: right Qualified Code(s): S70.01XD - Contusion of right hip, subsequent encounter; S70.11XD - Contusion of right thigh, subsequent encounter (5) Lumbar strain: QUALIFIERS: Encounter type: subsequent encounter Qualified Code(s): S39.012D - Strain of muscle, fascia and tendon of lower back, subsequent encounter (6) group home current use of 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: (7) Hypothyroidism: QUALIFIERS: Hypothyroidism type: acquired Qualified Code(s): E03.9 - Hypothyroidism, unspecified (8) GERD (gastroesophageal reflux disease): QUALIFIERS: Esophagitis presence: esophagitis presence not specified Qualified Code(s): K21.9 - Gastro-esophageal reflux disease without esophagitis (9) Presence 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: (10) Mixed hyperlipidemia: (11) Essential hypertension: (12) Atherosclerotic heart disease of [place] coronary artery without angina pectoris: QUALIFIERS: [place] vs. transplanted heart: [place] heart Qualified Code(s): I25.10 - Atherosclerotic heart disease of [place] coronary artery without angina pectoris (13) Obesity: QUALIFIERS: Obesity type: due to excess calories Obesity classification: adult class 3 (BMI >= 40) Serious obesity comorbidity presence: with serious comorbidity Body mass index: BMI 40.0-44.9 Qualified Code(s): E66.01 - Morbid (severe) obesity due to excess calories; Z68.41 - Body mass index [BMI] 40.0-44.9, adult (14) DM2 (diabetes mellitus, type 2): QUALIFIERS: Diabetes mellitus complication status: with circulatory complication Diabetes mellitus complication detail: with other circulatory complications Diabetes mellitus meterman insulin use: without jail use Qualified Code(s): E11.59 - Type 2 diabetes mellitus with other circulatory complications PLAN: Diet controlled. Not on meds. PLAN: Plan 1. Continue therapy 2. No changes to the drug regimen today 3. I recommend that she consider outpatient therapy at either [facility] or [facility] to strengthen her muscles, tamia the core, and help with balance. She is agreeable to this plan. Charges/Coding Visit Charges Inpatient E&M: 64508 Subs Hosp L2
[2023-09-29 19:01] VITALS: BP 118/56; PULSE 65; RESP 17; TEMP 36.7; O2SAT 99
[2023-09-29] MEDS: Aspirin 81 MG TAB.CHEW PO (21:12)
[2023-09-29] MEDS: Atorvastatin Calcium 40 MG Tablet PO (21:12)
[2023-09-30] MEDS: Levothyroxine 112 MCG Tablet PO (06:02)
[2023-09-30] MEDS: HYDROcodone Bitartrate/Apap 5/325 Tablet PO ×4 (06:03→22:40)
[2023-09-30 07:45] VITALS: BP 149/69; PULSE 61; RESP 18; TEMP 36.2; O2SAT 96
[2023-09-30] MEDS: Fenofibrate 145 MG Tablet PO (08:45)
[2023-09-30] MEDS: Tolterodine Tartrate 2 MG CAP.SA PO (10:19)
[2023-09-30] MEDS: Miconazole Nitrate 43 GM Bottle 1 APPLIC TOPICAL ×2 (10:20→22:36)
[2023-09-30] MEDS: Isosorbide Mononitrate 30 MG Tablet PO (10:55)
[2023-09-30] MEDS: Atenolol 25 MG Tablet PO (10:55)
[2023-09-30] MEDS: amLODIPine 5 MG Tablet PO (10:55)
[2023-09-30 11:55] LABS: Bedside Glucose 117 mg/dL (74-106)
--- NOTE | 2023-09-30 15:20 | CASEMGMT ---
Social Work SW completed advanced directives with pt. Original and copy provided to pt. Copies placed on chart. Eli Nicole, [employer]
--- NOTE | 2023-09-30 15:56 | PCM.PROGNOTE ---
Subjective Subjective Afebrile VSS Maintaining appropriate oxygen saturation on RA Oral intake is good Blood sugar record was reviewed. Blood sugars are adequately controlled on diet alone for the past few days. She tells me she is taken metformin twice a day for many years however, this was not listed on the confirmed home medications but, it was included in the hospitalist H&P. No need to restart Metformin at this time. The last hemoglobin A1c listed in the EMR was from 2018 and it was 6.1. The highest hemoglobin A1c I have seen in the past 10 years is 6.6. Discussed with nursing - no problems that need addressed Reviewed the PT/OT/ST notes Medication list reviewed. Pao is telling me that her mobility is improving. She is c/o restless legs/leg cramps at night. She has been told in the past that she snores. She gets tired and falls asleep when she is reading and she also falls asleep watching television. She does feel like her memory is not as sharp as it used to be. She sometimes naps in the afternoon. She has never had a sleep study. She denies any history of atrial fibrillation. Her BMI is 43.4. Her STOP BANG score is 5 or 6........We have not yet measured her neck circumference. Pao denies cephalgia, vertigo, lightheadedness, chest pain, shortness of breath at rest, palpitations, cough, nausea/vomiting, dysuria. Objective Data Objective Data Vital Signs: Vital Signs Temp Pulse Resp BP Pulse Ox O2 Del Method 97.2 F L 61 18 149/69 H 96 Room Air 09/30/23 07:45 09/30/23 07:45 09/30/23 07:45 09/30/23 07:45 09/30/23 07:45 09/30/23 07:45 Oxygen Delivery Method Room Air Weight: 252 lb 10.396 oz Body Mass Index (BMI) 43.3 Intake & Output: Intake and Output for Last 24 Hours 09/28/23 09/29/23 09/30/23 23:59 23:59 23:59 Intake Total 1900 / 2050 1263 / 1263 400 / 400 Output Total 1850 / 2100 900 / 900 600 / 600 Balance 50 / -50 363 / 363 -200 / -200 Lab / Micro Data 09/27/23 06:22 09/27/23 06:22 Labs: Laboratory Results - last 24 hr 09/27/23 06:22: IgA 108, Tiss Transglutamin IgA <2 09/30/23 11:35: POC Glucose 117 H Micro: Microbiology 09/28/23 08:40 Stool Stool Lactoferrin - Final Physical Exam Const alert, oriented x3 and no apparent distress Constitutional Narrative: Sitting in the recliner at the bedside reading when I entered the room. Looks comfortable. General Appearance: cooperative Resp normal respiratory effort, no use of accessory muscles and clear to auscultation bilaterally Effort and Inspection: able to speak in complete sentences Cardio regular rate, regular rhythm, no rub, no gallops and no clicks Cardio Narrative: Distant heart sounds. She has a soft systolic murmur at the second right intercostal space that radiates to the lower sternal border and apex. GI normal to inspection, nondistended, normoactive bowel sounds, soft to palpation and non-tender GI Narrative: No guarding with palpation. No hepatosplenomegaly. No masses. Extremity no calf tenderness and no pedal edema Extremity Narrative: The right upper extremity has a large bruise and skin tear extending from the mid forearm to the mid humeral shaft. There is no purulent discharge, no odor and no periwound erythema. Large superficial varicosities of the LE's. Skin no jaundice Rashes: no rashes Psych thought process normal, cooperative and affect normal Assessment & Plan Assessment/Plan (1) Debility: (2) Fall: QUALIFIERS: Encounter type: initial encounter Qualified Code(s): W19.XXXA - Unspecified fall, initial encounter (3) Leg pain, right: (4) Contusion, hip and thigh: QUALIFIERS: Encounter type: subsequent encounter Laterality: right Qualified Code(s): S70.01XD - Contusion of right hip, subsequent encounter; S70.11XD - Contusion of right thigh, subsequent encounter (5) Lumbar strain: QUALIFIERS: Encounter type: subsequent encounter Qualified Code(s): S39.012D - Strain of muscle, fascia and tendon of lower back, subsequent encounter (6) FDC current use of 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: (7) Hypothyroidism: QUALIFIERS: Hypothyroidism type: acquired Qualified Code(s): E03.9 - Hypothyroidism, unspecified (8) GERD (gastroesophageal reflux disease): QUALIFIERS: Esophagitis presence: esophagitis presence not specified Qualified Code(s): K21.9 - Gastro-esophageal reflux disease without esophagitis (9) Presence 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: (10) Mixed hyperlipidemia: (11) Essential hypertension: (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 transplanted heart: [place] heart Qualified Code(s): I25.10 - Atherosclerotic heart disease of [place] coronary artery without angina pectoris (13) Obesity: QUALIFIERS: Obesity type: due to excess calories Obesity classification: adult class 3 (BMI >= 40) Serious obesity comorbidity presence: with serious comorbidity Body mass index: BMI 40.0-44.9 Qualified Code(s): E66.01 - Morbid (severe) obesity due to excess calories; Z68.41 - Body mass index [BMI] 40.0-44.9, adult (14) DM2 (diabetes mellitus, type 2): QUALIFIERS: Diabetes mellitus complication status: with circulatory complication Diabetes mellitus complication detail: with other circulatory complications 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 Continue therapy 2. Recheck a BMP, PT/INR and a CBC in the AM. Also check a TSH and T4 and a HGBA1C. 3. Could it have been the Metformin that was causing the diarrhea? 4. Overnight trending pulse ox 5. She may continue to take the OTC medication for leg cramps as needed. B3 did not work for her in the past and the mag is normal. Charges/Coding Visit Charges Inpatient E&M: 40942 Subs Hosp L2
--- NOTE | 2023-09-30 18:22 | NURSING ---
patients neck measures 39 cm.
[2023-09-30 19:48] VITALS: BP 124/68; PULSE 65; RESP 18; TEMP 36.6; O2SAT 97
[2023-09-30 20:10] VITALS: PULSE 67; O2SAT 97
[2023-09-30 22:00] VITALS: PULSE 58; RESP 16; O2SAT 95
[2023-09-30] MEDS: Hydrocortisone 2.5% Crm 1 APPLIC TOPICAL (22:34)
[2023-09-30] MEDS: Aspirin 81 MG TAB.CHEW PO (22:34)
[2023-09-30] MEDS: Atorvastatin Calcium 40 MG Tablet PO (22:34)
[2023-10-01 05:53] LABS: Hematocrit 29.6 % (37-47); Hemoglobin 8.8 g/dL (12.0-15.0); Mean Corp Hgb Conc 29.7 g/dL (32-36); Mean Corpuscular Volume 90.8 fL (81-99); Mean Platelet Vol. 10.7 fl (6.2-12.0); Platelet Count 382 K/mm3 (150-450); RBC Distribution Width CV 15.1 % (11.6-14.6); RBC Distribution Width SD 49.9 fl (35.1-43.9); Red Blood Count 3.26 M/mm3 (4.2-5.4); White Blood Count 8.6 K/mm3 (4.4-11.0)
[2023-10-01 06:08] LABS: International Normalized Ratio 2.9; Prothrombin Time (Protime)PT. 30.7 SECONDS (11.7-14.9)
[2023-10-01 06:23] LABS: Anion Gap 4 (5-15); BUN 28 mg/dL (7-18); BUN/Creat Ratio 25.9 RATIO (10-20); Calcium,Total 9.4 mg/dL (8.5-10.1); Chloride 107 mmol/L (98-107); Creatinine, Serum 1.08 mg/dL (0.55-1.02); EST Glomerular Filtration Rate 52 mL/min (>60); Est Glom Filt Rate - Afr Amer 63 mL/min (>60); Estimated Creatinine Clearance 38.27 ml/min; Glucose 102 mg/dL (74-106); Potassium 4.4 mmol/L (3.5-5.1); Sodium Level 138 mmol/L (136-145); T4 Free Direct 1.17 ng/dL (0.76-1.46); Thyroid Stim Hormone (TSH) 4.37 uIU/mL (0.358-3.74)
[2023-10-01] MEDS: HYDROcodone Bitartrate/Apap 5/325 Tablet PO ×4 (06:23→21:21)
[2023-10-01] MEDS: Levothyroxine 112 MCG Tablet PO (06:23)
[2023-10-01] MEDS: amLODIPine 5 MG Tablet PO (08:02)
[2023-10-01] MEDS: Fenofibrate 145 MG Tablet PO (08:02)
[2023-10-01] MEDS: Isosorbide Mononitrate 30 MG Tablet PO (08:02)
[2023-10-01] MEDS: Tolterodine Tartrate 2 MG CAP.SA PO (08:03)
[2023-10-01] MEDS: Atenolol 25 MG Tablet PO (08:03)
[2023-10-01 09:13] VITALS: BP 138/72; PULSE 86; RESP 18; TEMP 36.6; O2SAT 98
--- NOTE | 2023-10-01 10:52 | PN_ITS ---
Subjective Subjective Afebrile VSS Maintaining appropriate oxygen saturation on RA Oral intake is good Discussed with nursing - no problems that need addressed Reviewed the PT/OT/ST notes Medication list reviewed. All lab drawn this morning was personally reviewed. Hemoglobin is down to 8.8 from 9.9 this past Friday. Sodium is now normal at 138 and the potassium is 4.4. The BUN is 28 with a creatinine of 1.08 and a BUN/creatinine ratio of 26. Hemoglobin A1c is 6. TSH is mildly increased at 4.37 and the free T4 is 1.17. Stool lactoferrin was negative and the quantitative fats in the stool are still pending. Total IgA is within normal limits and the test trans glutamine IgA is less than 2. The diarrhea which she has had all summer has resolved while she has been in the hospital. I suspect the diarrhea may be related to the metformin she was taking twice daily. We will continue to hold. Pao denies lightheadedness, cephalgia, chest pain, shortness of breath at rest, cough, nausea/vomiting/abdominal pain, dysuria and calf pain. She has a lot of bruising in the right leg and it is still sore but she is ambulating much easier. Objective Data Objective Data Vital Signs: Vital Signs Temp Pulse Resp BP Pulse Ox O2 Del Method FiO2 97.9 F 86 18 138/72 H 98 Room Air 21 10/01/23 09:13 10/01/23 09:13 10/01/23 09:13 10/01/23 09:13 10/01/23 09:13 10/01/23 09:13 09/30/23 20:10 Oxygen Delivery Method Room Air Weight: 252 lb 10.396 oz Body Mass Index (BMI) 43.3 Intake & Output: Intake and Output for Last 24 Hours 09/29/23 09/30/23 10/01/23 23:59 23:59 23:59 Intake Total 1263 / 1263 900 / 900 450 / 450 Output Total 900 / 900 1075 / 1075 450 / 450 Balance 363 / 363 -175 / -175 0 / 0 Lab / Micro Data 10/01/23 05:13 10/01/23 05:13 Labs: Laboratory Results - last 24 hr 09/30/23 11:35: POC Glucose 117 H 10/01/23 05:13: WBC 8.6, RBC 3.26 L, Hgb 8.8 L, Hct 29.6 L, MCV 90.8, MCH 27.0, MCHC 29.7 L, RDW Std Deviation 49.9 H, RDW Coeff of Angelina 15.1 H, Plt Count 382, MPV 10.7, PT 30.7 H, INR 2.9, Sodium 138, Potassium 4.4, Chloride 107, Carbon Dioxide 27.0, Anion Gap 4 L, BUN 28 H, Creatinine 1.08 H, Estim Creat Clear Calc 38.27, Est GFR (MDRD) Af Amer 63, Est GFR (MDRD) Non-Af 52 L, BUN/Creatinine Ratio 25.9 H, Glucose 102, Hemoglobin A1c 6.0 H, Calcium 9.4, TSH 4.37 H, Free T4 1.17 Micro: Microbiology 09/28/23 08:40 Stool Stool Lactoferrin - Final Physical Exam Const alert, oriented x3 and no apparent distress General Appearance: cooperative Resp normal respiratory effort and clear to auscultation bilaterally Effort and Inspection: able to speak in complete sentences Cardio regular rate, regular rhythm and no gallops Cardio Narrative: Distant heart sounds. She has a soft systolic murmur at the second right intercostal space that radiates to the lower sternal border and apex. GI normal to inspection, nondistended, normoactive bowel sounds, soft to palpation and non-tender Extremity no calf tenderness and no pedal edema Extremity Narrative: The extensive bruising on the right lower extremity is resolving. There is no redness and no openings in the skin. Skin General Skin Exam: no breakdown Rashes: no rashes Psych thought process normal, cooperative and affect normal Assessment & Plan Assessment/Plan (1) Debility: (2) Fall: QUALIFIERS: Encounter type: initial encounter Qualified Code(s): W19.XXXA - Unspecified fall, initial encounter (3) Leg pain, right: (4) Contusion, hip and thigh: QUALIFIERS: Encounter type: subsequent encounter Laterality: right Qualified Code(s): S70.01XD - Contusion of right hip, subsequent encounter; S70.11XD - Contusion of right thigh, subsequent encounter (5) Lumbar strain: QUALIFIERS: Encounter type: subsequent encounter Qualified Code(s): S39.012D - Strain of muscle, fascia and tendon of lower back, subsequent encounter (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 transplanted heart: [place] heart Qualified Code(s): I25.10 - Atherosclerotic heart disease of [place] coronary artery without angina pectoris (13) Obesity: QUALIFIERS: Obesity type: due to excess calories Obesity classification: adult class 3 (BMI >= 40) Serious obesity comorbidity presence: with serious comorbidity Body mass index: BMI 40.0-44.9 Qualified Code(s): E66.01 - Morbid (severe) obesity due to excess calories; Z68.41 - Body mass index [BMI] 40.0-44.9, adult (14) DM2 (diabetes mellitus, type 2): QUALIFIERS: Diabetes mellitus complication status: with circulatory complication Diabetes mellitus complication detail: with other circulatory complications Diabetes mellitus [employer] truck driver insulin use: without local [employer] intermodal truck driver use Qualified Code(s): E11.59 - Type 2 diabetes mellitus with other circulatory complications PLAN: Plan 1. Continue therapy 2. Recheck an H&H in a few days. She has rather extensive bruising of the right lower extremity from her fall. Hemoglobin at admission to the hospital was 12. She is normochromic normocytic. RDW is increased mildly. Will check a hemoccult stool. Charges/Coding Visit Charges Inpatient E&M: 15645 Subs Hosp L2
[2023-10-01 19:07] VITALS: BP 124/58; PULSE 72; RESP 18; TEMP 37; O2SAT 98
[2023-10-01] MEDS: Atorvastatin Calcium 40 MG Tablet PO (21:20)
[2023-10-01] MEDS: Aspirin 81 MG TAB.CHEW PO (21:20)
[2023-10-01] MEDS: Miconazole Nitrate 43 GM Bottle 1 APPLIC TOPICAL (21:21)
[2023-10-02] MEDS: HYDROcodone Bitartrate/Apap 5/325 Tablet PO ×4 (06:07→21:32)
[2023-10-02] MEDS: Levothyroxine 112 MCG Tablet PO (06:07)
[2023-10-02 08:28] VITALS: BP 124/55; PULSE 75; RESP 16; TEMP 36.6; O2SAT 97
[2023-10-02] MEDS: Tolterodine Tartrate 2 MG CAP.SA PO (08:30)
[2023-10-02] MEDS: amLODIPine 5 MG Tablet PO (08:31)
[2023-10-02] MEDS: Atenolol 25 MG Tablet PO (08:31)
[2023-10-02] MEDS: Isosorbide Mononitrate 30 MG Tablet PO (08:31)
[2023-10-02] MEDS: Fenofibrate 145 MG Tablet PO (08:31)
[2023-10-02] MEDS: Miconazole Nitrate 43 GM Bottle 1 APPLIC TOPICAL ×2 (08:33→21:34)
--- NOTE | 2023-10-02 18:28 | PN_ITS ---
Subjective Subjective Afebrile VSS Maintaining appropriate oxygen saturation on RA Oral intake is good Discussed with nursing - no problems that need addressed Reviewed the PT/OT notes Medication list reviewed. Pao denies lightheadedness, vertigo, CP, SOB at rest, SOB with exertion, cough, nausea, vomiting, abd pain, diarrhea, constipation, dysuria, calf pain and ankle swelling. She denies leg cramps today. Progressing very well with physical therapy and is ambulating with very little pain now. She is using a front wheeled walker. Objective Data Objective Data Vital Signs: Vital Signs Temp Pulse Resp BP Pulse Ox O2 Del Method FiO2 97.8 F 75 16 124/55 H 97 Room Air 21 10/02/23 08:28 10/02/23 08:28 10/02/23 08:28 10/02/23 08:28 10/02/23 08:28 10/02/23 08:28 09/30/23 20:10 Oxygen Delivery Method Room Air Weight: 252 lb 10.396 oz Body Mass Index (BMI) 43.3 Intake & Output: Intake and Output for Last 24 Hours 09/30/23 10/01/23 10/02/23 23:59 23:59 23:59 Intake Total 900 / 900 450 / 450 120 / 120 Output Total 1075 / 1075 450 / 450 Balance -175 / -175 0 / 0 120 / 120 Lab / Micro Data 10/04/23 07:21 10/01/23 05:13 Micro: Microbiology 09/28/23 08:40 Stool Stool Lactoferrin - Final Physical Exam Const alert, oriented x3 and no apparent distress General Appearance: cooperative Resp normal respiratory effort and clear to auscultation bilaterally Effort and Inspection: able to speak in complete sentences Cardio regular rate, regular rhythm and no gallops Cardio Narrative: Distant heart sounds. She has a soft systolic murmur at the second right i ntercostal space that radiates to the lower sternal border and apex. GI normal to inspection, nondistended, normoactive bowel sounds, soft to palpation and non-tender Extremity no calf tenderness and no pedal edema Extremity Narrative: The extensive bruising on the right lower extremity is resolving. There is no redness and no openings in the skin. Skin General Skin Exam: no breakdown Rashes: no rashes Psych thought process normal, cooperative and affect normal Assessment & Plan Assessment/Plan (1) Obstructive sleep apnea: PLAN: Plan 1. Continue therapy 2. Recheck an H&H and a PT/INR in the AM. 3. She has not had a bowel movement so the Hemoccult stool was not collected yet. 4. I think she will be stable for discharge home on Friday with assistance from her family. 5. Continue with the scheduled dose of hydrocodone in the a.m. and at at bedtime and transition to as needed every 4 hours for breakthrough pain. 6. Discontinue amlodipine because she has mild ankle edema today and her blood pressure is not adequately controlled .... It tends to be high in the morning. We will start lisinopril in place of amlodipine 10 mg nightly. 7. She is scheduled for a sleep study the night of her discharge from rehab. Charges/Coding Visit Charges Inpatient E&M: 06753 Subs Hosp L2
[2023-10-02 19:34] VITALS: BP 120/57; PULSE 66; RESP 16; TEMP 36.7; O2SAT 94
[2023-10-02] MEDS: Atorvastatin Calcium 40 MG Tablet PO (21:32)
[2023-10-02] MEDS: Aspirin 81 MG TAB.CHEW PO (21:32)
[2023-10-03] MEDS: Levothyroxine 112 MCG Tablet PO (05:07)
[2023-10-03 07:46] VITALS: BP 150/77; PULSE 82; RESP 17; TEMP 36.3; O2SAT 97
[2023-10-03] MEDS: Atenolol 25 MG Tablet PO (08:20)
[2023-10-03] MEDS: Isosorbide Mononitrate 30 MG Tablet PO (08:20)
[2023-10-03] MEDS: HYDROcodone Bitartrate/Apap 5/325 Tablet PO ×2 (08:20→22:17)
[2023-10-03] MEDS: amLODIPine 5 MG Tablet PO (08:20)
[2023-10-03] MEDS: Fenofibrate 145 MG Tablet PO (08:21)
[2023-10-03] MEDS: Miconazole Nitrate 43 GM Bottle 1 APPLIC TOPICAL ×2 (08:21→22:10)
[2023-10-03] MEDS: Tolterodine Tartrate 2 MG CAP.SA PO (08:21)
[2023-10-03] MEDS: Magnesium Hydroxide 30 ML UDC PO (12:52)
--- NOTE | 2023-10-03 17:55 | NURSING ---
Patient wound change completed, patient tolerated well. Minimal bloody drainage.
[2023-10-03 22:00] VITALS: BP 131/56; PULSE 66; RESP 18; TEMP 36.9; O2SAT 96
[2023-10-03] MEDS: Aspirin 81 MG TAB.CHEW PO (22:09)
[2023-10-03] MEDS: Senna/Docusate Sodium 1 Tablet 2 TABLET PO (22:09)
[2023-10-03] MEDS: Atorvastatin Calcium 40 MG Tablet PO (22:09)
[2023-10-04] MEDS: Levothyroxine 112 MCG Tablet PO (04:58)
[2023-10-04] MEDS: HYDROcodone Bitartrate/Apap 5/325 Tablet PO ×2 (06:58→21:24)
[2023-10-04 08:10] LABS: Hematocrit 33.1 % (37-47); Hemoglobin 9.9 g/dL (12.0-15.0)
[2023-10-04 08:29] VITALS: BP 142/52; PULSE 62; RESP 18; TEMP 36.5; O2SAT 98
[2023-10-04] MEDS: amLODIPine 5 MG Tablet PO (09:03)
[2023-10-04] MEDS: Fenofibrate 145 MG Tablet PO (09:03)
[2023-10-04] MEDS: Atenolol 25 MG Tablet PO (09:03)
[2023-10-04] MEDS: Isosorbide Mononitrate 30 MG Tablet PO (09:03)
[2023-10-04] MEDS: Senna/Docusate Sodium 1 Tablet 2 TABLET PO ×2 (09:03→21:19)
[2023-10-04] MEDS: Tolterodine Tartrate 2 MG CAP.SA PO (09:03)
[2023-10-04 09:14] LABS: International Normalized Ratio 3.4; Prothrombin Time (Protime)PT. 34.5 SECONDS (11.7-14.9)
--- NOTE | 2023-10-04 12:33 | PN_ITS ---
Subjective Subjective Afebrile VSS Maintaining appropriate oxygen saturation on RA Oral intake is good Discussed with nursing - no problems that need addressed. She is incontinent of urine Reviewed the PT/OT notes - she is getting stronger and ambulating further. Using a WW at A. Minimal pain in the R hip and R leg with ambulation now. Medication list reviewed. All lab drawn this morning was personally reviewed. Hemoglobin is 9.9 today, up from 8.8 on 10/01/2023. INR is elevated at 3.4. Would like to maintain between 2.5-3. Hemoccult stool is negative. Pao denies lightheadedness, headache, palpitations, shortness of breath at rest, nausea/vomiting/abdominal pain, dysuria and calf pain. She does have urge urinary incontinence. She has seen Dr. Peters in this for the past and has tried several different drugs. She is not happy with the urge urinary incontinence. She is now on Detrol 2 mg once a day....therapeutic interchange for Solifenacin. Objective Data Objective Data Vital Signs: Vital Signs Temp Pulse Resp BP Pulse Ox O2 Del Method FiO2 97.7 F L 62 18 142/52 H 98 Room Air 21 10/04/23 08:29 10/04/23 08:29 10/04/23 08:29 10/04/23 08:29 10/04/23 08:29 10/04/23 08:29 09/30/23 20:10 Oxygen Delivery Method Room Air Weight: 252 lb 10.396 oz Body Mass Index (BMI) 43.3 Intake & Output: Intake and Output for Last 24 Hours 10/02/23 10/03/23 10/04/23 23:59 23:59 23:59 Intake Total 120 / 120 840 / 840 420 / 420 Balance 120 / 120 840 / 840 420 / 420 Lab / Micro Data 10/04/23 07:21 10/01/23 05:13 Labs: Laboratory Results - last 24 hr 10/04/23 07:21: Hgb 9.9 L, Hct 33.1 L, PT 34.5 H, INR 3.4 Micro: Microbiology 10/03/23 18:00 Stool Stool Occult Blood (ROGELIO) - Final 09/28/23 08:40 Stool Stool Lactoferrin - Final Physical Exam Const alert, oriented x3 and no apparent distress General Appearance: cooperative Resp normal respiratory effort and clear to auscultation bilaterally Effort and Inspection: able to speak in complete sentences Cardio regular rate, regular rhythm and no gallops GI normal to inspection, nondistended, normoactive bowel sounds, soft to palpation and non-tender Extremity no calf tenderness and no pedal edema Extremity Narrative: The extensive bruising on the right lower extremity is resolving. There is no redness and no openings in the skin. 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: (7) Hypothyroidism: QUALIFIERS: Hypothyroidism type: acquired Qualified Code(s): E03.9 - Hypothyroidism, unspecified (8) GERD (gastroesophageal reflux disease): QUALIFIERS: Esophagitis presence: esophagitis presence not specified Qualified Code(s): K21.9 - Gastro-esophageal reflux disease without esophagitis (9) Essential hypertension: (10) DM2 (diabetes mellitus, type 2): QUALIFIERS: Diabetes mellitus complication status: with circulatory complication Diabetes mellitus complication detail: with other circulatory complications Diabetes mellitus terminologist insulin use: without nursing home use Qualified Code(s): E11.59 - Type 2 diabetes mellitus with other circul atory complications (11) Obesity: QUALIFIERS: Obesity type: due to excess calories Obesity classification: adult class 3 (BMI >= 40) Serious obesity comorbidity presence: with serious comorbidity Body mass index: BMI 40.0-44.9 Qualified Code(s): E66.01 - Morbid (severe) obesity due to excess calories; Z68.41 - Body mass index [BMI] 40.0-44.9, adult (12) Supratherapeutic INR: PLAN: Plan 1. Continue therapy 2. Hold Coumadin today 3. Change the Coumadin dosing to 7.5 mg twice a week on Friday and and 5 mg all other days 4. Recheck a PT/INR on Friday along with a BMP. We discussed how balance is affected by neuropathy in the feet, poor vision (tamia at night) and vestibular dysfunction and why using a hand held device for ambulation can improve balance. We also discussed again how regular exercise, increased muscle strength (tamia core strengthening) can improve balance. She she had 2 falls in the past 6 weeks and has had severe pain after the falls. She would like to be referred to [facility] for balance training and muscle strengthening at ID. She knows she should lose some weight and this would help ambulation as well. Charges/Coding Visit Charges Inpatient E&M: 58323 Subs Hosp L2
[2023-10-04 20:28] VITALS: BP 113/74; PULSE 74; RESP 18; TEMP 36.8; O2SAT 98
[2023-10-04] MEDS: Aspirin 81 MG TAB.CHEW PO (21:18)
[2023-10-04] MEDS: Atorvastatin Calcium 40 MG Tablet PO (21:18)
[2023-10-04] MEDS: Lisinopril 10 MG Tablet PO (21:19)
[2023-10-04] MEDS: Miconazole Nitrate 43 GM Bottle 1 APPLIC TOPICAL (21:20)
[2023-10-05] MEDS: Levothyroxine 112 MCG Tablet PO (05:11)
[2023-10-05] MEDS: Fenofibrate 145 MG Tablet PO (08:57)
[2023-10-05] MEDS: Tolterodine Tartrate 2 MG CAP.SA PO (08:57)
[2023-10-05] MEDS: HYDROcodone Bitartrate/Apap 5/325 Tablet PO ×2 (08:57→21:30)
[2023-10-05] MEDS: Atenolol 25 MG Tablet PO (08:57)
[2023-10-05] MEDS: Isosorbide Mononitrate 30 MG Tablet PO (08:58)
[2023-10-05] MEDS: Senna/Docusate Sodium 1 Tablet 2 TABLET PO (08:59)
[2023-10-05] MEDS: Miconazole Nitrate 43 GM Bottle 1 APPLIC TOPICAL ×2 (09:00→21:32)
[2023-10-05 10:00] VITALS: BP 143/50; PULSE 70; RESP 16; TEMP 36.3; O2SAT 97
[2023-10-05 19:42] VITALS: BP 120/45; PULSE 67; RESP 19; TEMP 37.1; O2SAT 96
[2023-10-05] MEDS: Atorvastatin Calcium 40 MG Tablet PO (21:29)
[2023-10-05] MEDS: Aspirin 81 MG TAB.CHEW PO (21:29)
[2023-10-05] MEDS: Lisinopril 10 MG Tablet PO (21:31)
[2023-10-06] MEDS: Levothyroxine 112 MCG Tablet PO (05:26)
[2023-10-06 06:00] VITALS: BMI 42.8
[2023-10-06 06:08] LABS: Prothrombin Time (Protime)PT. 31.6 SECONDS (11.7-14.9)
[2023-10-06 06:41] LABS: Anion Gap 4 (5-15); BUN 32 mg/dL (7-18); BUN/Creat Ratio 24.2 RATIO (10-20); Calcium,Total 9.5 mg/dL (8.5-10.1); Chloride 108 mmol/L (98-107); Creatinine, Serum 1.32 mg/dL (0.55-1.02); EST Glomerular Filtration Rate 42 mL/min (>60); Est Glom Filt Rate - Afr Amer 50 mL/min (>60); Estimated Creatinine Clearance 31.31 ml/min; Glucose 105 mg/dL (74-106); Potassium 4.4 mmol/L (3.5-5.1); Sodium Level 140 mmol/L (136-145)
[2023-10-06 08:09] VITALS: BP 127/85; PULSE 87; RESP 18; TEMP 36.3; O2SAT 98
[2023-10-06] MEDS: Tolterodine Tartrate 2 MG CAP.SA PO (08:19)
[2023-10-06] MEDS: Isosorbide Mononitrate 30 MG Tablet PO (08:20)
[2023-10-06] MEDS: Atenolol 25 MG Tablet PO (08:20)
[2023-10-06] MEDS: Fenofibrate 145 MG Tablet PO (08:20)
[2023-10-06] MEDS: Miconazole Nitrate 43 GM Bottle 1 APPLIC TOPICAL ×2 (08:20→22:12)
[2023-10-06] MEDS: HYDROcodone Bitartrate/Apap 5/325 Tablet PO ×2 (08:26→22:11)
--- NOTE | 2023-10-06 11:35 | PCM.PROGNOTE ---
Subjective Subjective Pao was seen on team rounds today. Her niece, Moira, was present in the room for rounds. Afebrile VSS-blood pressure is well controlled. Heart rate is within normal limits. Maintaining appropriate oxygen saturation on RA Oral intake is good Discussed with nursing - no problems that need addressed Reviewed the PT/OT notes Medication list reviewed. She is currently getting 5 mg of Vicodin at 0700 mg and 10mg at bedtime and she is sleeping well and denies pain. Will convert to as needed medication at discharge. Pao denies pain. She is not asking for any additional pain medication. She denies chest pain, palpitations, shortness of breath at rest, cough, nausea/vomiting/abdominal pain. She had 2 bowel movements yesterday and none today. She had a small bowel movement and a medium bowel movement on 10 04 and they were both formed. Constipation has resolved. The diarrhea she was having all summer may have been due to Metformin and it has not been ordered in rehab. BS's have been well controlled off Metformin. Objective Data Objective Data Vital Signs: Vital Signs Temp Pulse Resp BP Pulse Ox O2 Del Method FiO2 97.4 F L 87 18 127/85 H 98 Room Air 21 10/06/23 08:09 10/06/23 08:09 10/06/23 08:09 10/06/23 08:09 10/06/23 08:09 10/06/23 08:09 09/30/23 20:10 Oxygen Delivery Method Room Air Weight: 249 lb 12.54 oz Body Mass Index (BMI) 42.8 Intake & Output: Intake and Output for Last 24 Hours 10/05/23 10/05/23 10/06/23 00:59 23:59 23:59 Intake Total 120 / 120 Output Total Balance 120 / 120 Lab / Micro Data 10/04/23 07:21 10/06/23 05:13 Labs: Laboratory Results - last 24 hr 10/06/23 05:13: PT 31.6 H, INR 3.0, Sodium 140, Potassium 4.4, Chloride 108 H, Carbon Dioxide 28.0, Anion Gap 4 L, BUN 32 H, Creatinine 1.32 H, Estim Creat Clear Calc 31.31, Est GFR (MDRD) Af Amer 50 L, Est GFR (MDRD) Non-Af 42 L, BUN/Creatinine Ratio 24.2 H, Glucose 105, Calcium 9.5 Micro: Microbiology 10/03/23 18:00 Stool Stool Occult Blood (ROGELIO) - Final 09/28/23 08:40 Stool Stool Lactoferrin - Final Physical Exam Const alert, oriented x3 and no apparent distress Constitutional Narrative: Sitting in the recliner at the bedside reading when I entered the room. Looks comfortable. General Appearance: cooperative HEENT normocephalic, head/scalp atraumatic and hearing grossly normal bilaterally Eyes EOMs intact bilaterally, conjunctivae normal and no scleral icterus Eyes Narrative: No mattering of the eyelashes and no discharge from the eyes. Neck supple General: normal visual inspection and trachea midline; Negative for lymphadenopathy Chest Chest: symmetrical chest wall rise Resp normal respiratory effort and clear to auscultation bilaterally Effort and Inspection: able to speak in complete sentences Cardio regular rate, regular rhythm and no gallops Cardio Narrative: Distant heart sounds. She has a soft systolic murmur at the second right intercostal space that radiates to the lower sternal border and apex. GI normal to inspection, nondistended, normoactive bowel sounds, soft to palpation and non-tender GI Narrative: No guarding with palpation. No hepatosplenomegaly. No masses. Back/Spine no CVA tenderness and normal to inspection Extremity no calf tenderness and no pedal edema Extremity Narrative: The extensive bruising on the right lower extremity is resolving. There is no redness and no openings in the skin. General Extremity: Negative for clubbing or cyanosis Skin no jaundice Skin Narrative: She has ecchymosis on the R upper extremity extending from above the elbow to the mid forearm on the lateral flexor area. There is no purulent DC but, there is some serous drainage form the 2 skin tears located within the area of ecchymosis. There is no periwound erythema and no odor. General Skin Exam: no breakdown Rashes: no rashes Neuro oriented x3, CN's II-XII intact bilaterally, no focal motor deficits and no sensory deficits noted Neuro Narrative: abnormal gait due to pain in the R hip to knee area. Sensorium / Orientation: awake and alert Psych thought process normal, cooperative and affect normal Appearance: grossly normal Attitude: calm Activity / Motor Behavior: appropriate eye contact Speech: normal speech Assessment & Plan Assessment/Plan (1) Obstructive sleep apnea: PLAN: Suspected. StopBang score is 6 and she had an abnormal Overnight trending pulse ox. she is to have a sleep study the night of the post DC from rehab. 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: (7) Hypothyroidism: QUALIFIERS: Hypothyroidism type: acquired Qualified Code(s): E03.9 - Hypothyroidism, unspecified (8) GERD (gastroesophageal reflux disease): QUALIFIERS: Esophagitis presence: esophagitis presence not specified Qualified Code(s): K21.9 - Gastro-esophageal reflux disease without esophagitis (9) Essential hypertension: (10) DM2 (diabetes mellitus, type 2): QUALIFIERS: Diabetes mellitus complication status: with circulatory complication Diabetes mellitus complication detail: with other circulatory complications Diabetes mellitus shelter insulin use: without shelter use Qualified Code(s): E11.59 - Type 2 diabetes mellitus with other circulatory complications (11) Obesity: QUALIFIERS: Obesity type: due to excess calories Obesity classification: adult class 3 (BMI >= 40) Serious obesity comorbidity presence: with serious comorbidity Body mass index: BMI 40.0-44.9 Qualified Code(s): E66.01 - Morbid (severe) obesity due to excess calories; Z68.41 - Body mass index [BMI] 40.0-44.9, adult (12) Supratherapeutic INR: PLAN: Plan 1. Continue therapy 2. The INR is 3.0 today so we will hold Coumadin 1 more day and then restart at 5 mg on Friday, Friday, Friday, Friday, Friday and 7.5 mg on Friday and . 3. Recheck an INR on prior to discharge. Also check a BMP and H&H on . 4. She will discharge to the sleep lab in the evening on 10/09/2023 and go home at 6 AM on 10/10/2023. She will follow-up with pulmonary medicine after the sleep study. 5. I recommended to Pao and Moira that Pao be seen at [facility] for balance training once a week for 4 weeks and then consider joining [facility] for regular exercise. 6. Weight loss was advised. Charges/Coding Visit Charges Inpatient E&M: 03871 Subs Hosp L2
--- NOTE | 2023-10-06 13:25 | CASEMGMT ---
Social Work IDT met with patient and niece for Team meeting. Discussed patient's progress in PT/OT/SN. Educated to Medicare approval 13 days with DC 10/09. Pt will DC home alone. Recommending OP PT. Pt prefers [facility]. No DME needs. Niece to transport. SW faxed referral to [facility]. Plan: DC home alone 10/09, [facility] PT Eli Nicole, [employer]
[2023-10-06 20:17] VITALS: BP 113/50; PULSE 65; RESP 16; TEMP 36.9; O2SAT 98
[2023-10-06 22:00] VITALS: PULSE 69; RESP 17; O2SAT 98
[2023-10-06] MEDS: Aspirin 81 MG TAB.CHEW PO (22:09)
[2023-10-06] MEDS: Atorvastatin Calcium 40 MG Tablet PO (22:09)
[2023-10-06] MEDS: Lisinopril 10 MG Tablet PO (22:13)
[2023-10-07] MEDS: Levothyroxine 112 MCG Tablet PO (06:00)
[2023-10-07] MEDS: HYDROcodone Bitartrate/Apap 5/325 Tablet PO ×2 (06:00→20:17)
[2023-10-07] MEDS: Isosorbide Mononitrate 30 MG Tablet PO (08:16)
[2023-10-07] MEDS: Tolterodine Tartrate 2 MG CAP.SA PO (08:16)
[2023-10-07] MEDS: Senna/Docusate Sodium 1 Tablet 2 TABLET PO ×2 (08:16→20:19)
[2023-10-07] MEDS: Atenolol 25 MG Tablet PO (08:16)
[2023-10-07] MEDS: Fenofibrate 145 MG Tablet PO (08:16)
[2023-10-07] MEDS: Miconazole Nitrate 43 GM Bottle 1 APPLIC TOPICAL ×2 (08:17→20:18)
--- NOTE | 2023-10-07 09:44 | PN_ITS ---
Subjective Subjective Patient seen, examined. She is in good spirits. She showed me her right lower extremity contusion, she otherwise has no new problems, concerns, issues, complaints, she is looking forward to going home. Objective Data Objective Data Vital Signs: Vital Signs Temp Pulse Resp BP Pulse Ox O2 Del Method FiO2 98.5 F 69 17 113/50 L 98 Room Air 21 10/06/23 20:17 10/06/23 22:00 10/06/23 22:00 10/06/23 20:17 10/06/23 22:00 10/06/23 22:00 09/30/23 20:10 Oxygen Delivery Method Room Air Weight: 113.3 kg Body Mass Index (BMI) 42.8 Intake & Output: Intake and Output for Last 24 Hours 10/05/23 10/06/23 10/07/23 23:59 23:59 23:59 Intake Total 1490 / 1490 780 / 780 Output Total 580 / 580 650 / 650 Balance 910 / 910 130 / 130 Lab / Micro Data Attestation: I reviewed the patient's lab results. 10/04/23 07:21 10/06/23 05:13 Micro: Microbiology 10/03/23 18:00 Stool Stool Occult Blood (ROGELIO) - Final 09/28/23 08:40 Stool Stool Lactoferrin - Final Physical Exam Const alert General Appearance: cooperative HEENT normocephalic Eyes PERRL and EOMs intact bilaterally Neck supple, no JVD and no carotid bruits Resp normal respiratory effort, normal air movement and clear to auscultation bilaterally Cardio regular rate and regular rhythm GI normal to inspection, nondistended, normoactive bowel sounds, non-tender and non-distended Extremity normal capillary refill Extremity Narrative: Bruising right distal thigh, knee, right lower extremity. 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 * Debility - PT/OT> * Pain - [place] 5/325mg 1 tablet 0700, 2 tablets 2200, 1 tablet q6h prn. * Bowel - Senna/colace 2 tablets bid, Dulcolax 10mg pr x 1 prn, MOM 30ml po x 1 prn. * DVT prophylaxis - on coumadin. * Coronary artery disease, stent - Atenolol 25mg daily, Lisinopril 10mg qhs, Imdur 30mg daily, Aspirin 81mg qhs, NTG 0.4mg q5m prn. * Hyperlipidemia - Atorvastatin 40mg qhs, Tricor 145mg daily. * Rash - HC 2.5% cream topical bid prn. * Hypothyroidism - Levothyroxine 112mcg daily. * Tinea Corporis - Miconazole topical bid. * Overactive bladder - Tolterodine 2mg daily. * History of pulmonary embolism - coumadin 5mg 5 days/week, 7.5mg 2 days/week, monitor INR. * Sleep apnea - Discharge to sleep lab 10/09/2023 for sleep study. Capacity Capacity Assessment Tool Can the patient make a choice & communicate that choice?: Yes Can the patient understand benefits, risks and alternatives?: Yes Can the patient make a logical, rational choice?: Yes Is the choice the patient makes consistent w/ their values?: Yes Is there an impending, emergent risk to the patient?: No Does the patient have an Advance Directive?: Yes Is there a Surrogate Available?: Yes i.e. HCPOA: Yes i.e. close relative (spouse, child, parent, sibling)?: Yes
[2023-10-07 10:00] VITALS: BP 114/67; PULSE 55; RESP 16; TEMP 36.5; O2SAT 94
[2023-10-07 20:00] VITALS: BP 132/57; PULSE 65; RESP 14; TEMP 36.9; O2SAT 95
[2023-10-07] MEDS: Aspirin 81 MG TAB.CHEW PO (20:16)
[2023-10-07] MEDS: Atorvastatin Calcium 40 MG Tablet PO (20:16)
[2023-10-07] MEDS: Lisinopril 10 MG Tablet PO (20:18)
[2023-10-08] MEDS: Levothyroxine 112 MCG Tablet PO (06:06)
[2023-10-08] MEDS: HYDROcodone Bitartrate/Apap 5/325 Tablet PO ×2 (06:07→20:54)
[2023-10-08 08:11] VITALS: BP 121/52; PULSE 60; RESP 16; TEMP 36.3; O2SAT 95
[2023-10-08] MEDS: Tolterodine Tartrate 2 MG CAP.SA PO (08:33)
[2023-10-08] MEDS: Fenofibrate 145 MG Tablet PO (08:33)
[2023-10-08] MEDS: Isosorbide Mononitrate 30 MG Tablet PO (08:34)
[2023-10-08] MEDS: Atenolol 25 MG Tablet PO (08:34)
[2023-10-08] MEDS: Senna/Docusate Sodium 1 Tablet 2 TABLET PO ×2 (08:34→20:54)
[2023-10-08] MEDS: Miconazole Nitrate 43 GM Bottle 1 APPLIC TOPICAL ×2 (08:35→20:55)
--- NOTE | 2023-10-08 19:47 | DS.PCM_ITS ---
Providers Date of Admission: 09/26/23 Primary Care Physician: Dr. Earlene Rosario MD Reason For Visit: RIGHT HIP CONTUSION/FALL Diagnosis Discharge Diagnosis (1) Debility: Status: Acute Code(s): R53.81 - Other malaise (2) Obstructive sleep apnea: Status: Suspected Code(s): G47.33 - Obstructive sleep apnea (adult) (pediatric) (3) Fall: Status: Acute Code(s): W19.XXXA - Unspecified fall, initial encounter Qualifiers: Encounter type: initial encounter Qualified Code(s): W19.XXXA - Unspecified fall, initial encounter (4) Leg pain, right: Status: Acute Code(s): M79.604 - Pain in right leg (5) Contusion, hip and thigh: Status: Acute Code(s): S70.00XA - Contusion of unspecified hip, initial encounter; S70.10XA - Contusion of unspecified thigh, initial encounter Qualifiers: Encounter type: subsequent encounter Laterality: right Qualified Code(s): S70.01XD - Contusion of right hip, subsequent encounter; S70.11XD - Contusion of right thigh, subsequent encounter (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 Code(s): Z79.01 - termite control service representative (current) use of 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s (7) Hypothyroidism: Status: Chronic Code(s): E03.9 - Hypothyroidism, unspecified Qualifiers: Hypothyroidism type: acquired Qualified Code(s): E03.9 - Hypothyroidism, unspecified (8) Presence 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: Status: Chronic Code(s): Z95.5 - Presence of coronary angioplasty implant and graft (9) Essential hypertension: Status: Chronic Code(s): I10 - Essential (primary) hypertension (10) Mixed hyperlipidemia: Status: Chronic Code(s): E78.2 - Mixed hyperlipidemia (11) Overactive bladder: Status: Acute Code(s): N32.81 - Overactive bladder (12) History of pulmonary embolism: Status: Acute Code(s): Z86.711 - Personal history of pulmonary embolism Plan 78 year old female with below past medical history hospitalized for fall, right lower extremity contusion, admitted to for 3 hours daily rehabilitation, strengthening, prior to discharge home. * Debility - PT/OT> * Pain - [place] 5/325mg 1 tablet 0700, 2 tablets 2200, 1 tablet q6h prn. * Bowel - Senna/colace 2 tablets bid, Dulcolax 10mg pr x 1 prn, MOM 30ml po x 1 prn. * DVT prophylaxis - on coumadin. * Coronary artery disease, stent - Atenolol 25mg daily, Lisinopril 10mg qhs, Imdur 30mg daily, Aspirin 81mg qhs, NTG 0.4mg q5m prn. * Hyperlipidemia - Atorvastatin 40mg qhs, Tricor 145mg daily. * Rash - HC 2.5% cream topical bid prn. * Hypothyroidism - Levothyroxine 112mcg daily. * Tinea Corporis - Miconazole topical bid. * Overactive bladder - Tolterodine 2mg daily. * History of pulmonary embolism - coumadin 5mg 5 days/week, 7.5mg 2 days/week, monitor INR. * Sleep apnea - Discharge to sleep lab 10/09/2023 for sleep study. Medications at Discharge Home Medications aspirin 81 mg chewable tablet 81 mg PO QHS hearth 05/10/14 levothyroxine 112 mcg tablet 112 mcg PO DAILY thyroid 05/10/14 nitroglycerin 0.4 mg sublingual tablet 0.4 mg sublingual Q5M PRN Chest Pain 05/10/14 fenofibrate 160 mg tablet 160 mg PO DAILY cholesterol 09/14/19 magnesium oxide 400 mg (241.3 mg magnesium) tablet 800 mg PO BID suppliment 10/27/19 atenolol 25 mg tablet 25 mg PO DAILY blood pressure 07/10/20 atorvastatin 40 mg tablet 40 mg PO QHS cholestorol 07/10/20 hydrocortisone 2.5 % topical cream 1 applic topical BID PRN Itching 07/10/20 isosorbide mononitrate 30 mg tablet,extended release 24 hr 30 mg PO DAILY heart #90 tabs 08/10/20 warfarin 5 mg tablet 5 mg PO SUTHFRSA blood thinner 04/24/22 solifenacin 5 mg tablet 5 mg PO DAILY bladder 07/18/22 fosinopril 40 mg tablet 40 mg PO BID this is a dose increase #60 tabs 09/01/23 hydrocodone-acetaminophen 5-325mg 5mg-325mg 1 tab PO Q6H PRN PRN Pain 3 days #10 TABLETS 09/25/23 warfarin 7.5 mg tablet 7.5 mg PO MOTUWE blood thinner 09/26/23 hydrocodone-acetaminophen 5-325mg 5mg-325mg 1 tab PO 0700 7 days #7 tabs 10/08/23 hydrocodone-acetaminophen 5-325mg 5mg-325mg 2 tab PO 2200 7 days #14 tabs 10/08/23 Hospital Course Operations None Procedures None Summary of Care Provided Minutes Spent on Discharge: 35 Hospital Course: 78 year old female with below past medical history hospitalized for fall, right lower extremity contusion, admitted to for 3 hours daily rehabilitation, strengthening, prior to discharge home. Discharge home alone 10/09/2023, [facility]. Physical Exam Const alert General Appearance: cooperative HEENT normocephalic Eyes PERRL and EOMs intact bilaterally Neck supple, no JVD and no carotid bruits Resp normal respiratory effort, normal air movement and clear to auscultation bilaterally Cardio regular rate and regular rhythm GI normal to inspection, nondistended, normoactive bowel sounds, non-tender and non-distended Extremity normal capillary refill General Extremity: Negative for edema Skin no rashes or lesions noted General Skin Exam: no breakdown Psych affect normal Appearance: appropriate Weight / BMI Weight Weight: 113.3 kg Body Mass Index (BMI) 42.8 ABG / Lab / Microbiology Data 10/04/23 07:21 10/06/23 05:13 Microbiology: Microbiology 10/03/23 18:00 Stool Stool Occult Blood (ROGELIO) - Final 09/28/23 08:40 Stool Stool Lactoferrin - Final Indicators for Scoring Admitted with or Primary Diagnosis of CVA/Stroke: No Hx of CVA/Stroke: No D/C Instructions Discharge Diet: No restrictions Discharge Activity: Return to Normal Activity, May Shower and Use Walker Weight Bearing Status: Weight bearing as tolerated Call your doctor if you observe: Fever of 101 or Higher, Inability to urinate, I nability to have a bowel movement, Shortness of breath, Dizziness, Fainting spells, Swelling in the ankles, Chest pain and Uncontrolled pain Additional Instructions: Discharge home alone 10/09/2023, [facility]. Meaningful Use Info Meaningful Use Diagnoses (Choose all that apply): None applicable Discharge Plan Admission Admit Date/Time: 09/26/23 13:10 Primary Reason for Your Visit: Debility. Attending Provider: Jennifer Black Primary Care Provider: Earlene Rosario Instructions Additional Instructions / Restrictions: Discharge home alone 10/09/2023, [facility] PT. Discharge to sleep lab for sleep study, then home. Discharge Orders/Prescriptions Prescriptions: New hydrocodone-acetaminophen 5-325 mg Tablet 2 tab PO 2200 7 Days Qty: 14 0RF hydrocodone-acetaminophen 5-325 mg Tablet 1 tab PO 0700 7 Days Qty: 7 0RF Continued fenofibrate 160 mg tablet 160 mg PO DAILY hydrocortisone 2.5 % cream 1 applic TOPICAL BID PRN (Reason: Itching) atorvastatin 40 mg tablet 40 mg PO QHS atenolol 25 mg tablet 25 mg PO DAILY nitroglycerin 0.4 MG tablet 0.4 mg SUBLINGUAL Q5M PRN (Reason: Chest Pain) Patient Comments: heart levothyroxine 112 MCG tablet 112 mcg PO DAILY Patient Comments: syhtroid aspirin 81 MG tablet,chewable 81 mg PO QHS Patient Comments: heart solifenacin 5 mg tablet 5 mg PO DAILY warfarin 7.5 mg tablet 7.5 mg PO MOTUWE hydrocodone-acetaminophen 5-325 mg tablet 1 tab PO Q6H PRN PRN (Reason: Pain) 3 Days Qty: 10 0RF magnesium oxide 400 mg (241.3 mg magnesium) tablet 800 mg PO BID Hold Instructions: Resume on 10/01/23. Patient Comments: magnesium isosorbide mononitrate 30 mg tablet extended release 24 hr 30 mg PO DAILY Qty: 90 3RF warfarin 5 mg tablet 5 mg PO SUTHFRSA Protocol: Dose Management Protocol Text: Patient Instructed to take: warfarin 5 mg (1 Tab) on MELISSA, TH, FR, SA warfarin 5 mg (1.5 Tabs) on , , Rx Instructions: Current dose 7.5 mg 2 days per week, 5 mg all others. Managed by Dr. Rosario fosinopril 40 mg tablet 40 mg PO BID Qty: 60 11RF Hold Instructions: Resume on 10/01/23. Discontinued amlodipine 5 mg tablet 5 mg PO DAILY Qty: 30 11RF Referrals / Follow Up: Sleep, Study [Other] - 10/09/23 8:00 pm (Sleep study at D/c 8pm ) Earlene Rosario MD [Primary Care Provider] - 10/13/23 1:00 pm Disposition Disposition (needs filled in before D/C Order can be placed): Home, Self Care
[2023-10-08] MEDS: Lisinopril 10 MG Tablet PO (20:54)
[2023-10-08] MEDS: Aspirin 81 MG TAB.CHEW PO (20:54)
[2023-10-08] MEDS: Atorvastatin Calcium 40 MG Tablet PO (20:54)
[2023-10-08 20:59] VITALS: BP 114/48; PULSE 62; RESP 16; TEMP 36.4; O2SAT 97
[2023-10-09 00:07] LABS: Fats, Neutral Normal (.); Fats, Total Normal (.)
[2023-10-09 05:58] LABS: Hematocrit 31.7 % (37-47); Hemoglobin 9.3 g/dL (12.0-15.0)
[2023-10-09] MEDS: Levothyroxine 112 MCG Tablet PO (06:07)
[2023-10-09] MEDS: HYDROcodone Bitartrate/Apap 5/325 Tablet PO ×2 (06:07→19:33)
[2023-10-09 06:27] LABS: Anion Gap 3 (5-15); BUN 32 mg/dL (7-18); BUN/Creat Ratio 26.4 RATIO (10-20); Calcium,Total 9.4 mg/dL (8.5-10.1); Chloride 109 mmol/L (98-107); Creatinine, Serum 1.21 mg/dL (0.55-1.02); EST Glomerular Filtration Rate 46 mL/min (>60); Est Glom Filt Rate - Afr Amer 56 mL/min (>60); Estimated Creatinine Clearance 34.16 ml/min; Glucose 107 mg/dL (74-106); Potassium 4.5 mmol/L (3.5-5.1); Sodium Level 140 mmol/L (136-145)
[2023-10-09 06:51] LABS: International Normalized Ratio 2.2; Prothrombin Time (Protime)PT. 24.3 SECONDS (11.7-14.9)
[2023-10-09] MEDS: Atenolol 25 MG Tablet PO (09:51)
[2023-10-09] MEDS: Fenofibrate 145 MG Tablet PO (09:51)
[2023-10-09] MEDS: Tolterodine Tartrate 2 MG CAP.SA PO (09:51)
[2023-10-09] MEDS: Miconazole Nitrate 43 GM Bottle 1 APPLIC TOPICAL ×2 (09:51→19:35)
[2023-10-09] MEDS: Isosorbide Mononitrate 30 MG Tablet PO (09:51)
[2023-10-09 10:00] VITALS: BP 115/43; PULSE 54; RESP 14; TEMP 36; O2SAT 97
[2023-10-09 18:31] VITALS: BP 132/56; PULSE 65; RESP 16; TEMP 36.9; O2SAT 96
[2023-10-09] MEDS: Lisinopril 10 MG Tablet PO (19:34)
[2023-10-09] MEDS: Aspirin 81 MG TAB.CHEW PO (19:34)
[2023-10-09] MEDS: Atorvastatin Calcium 40 MG Tablet PO (19:34)
[2023-10-09] MEDS: Senna/Docusate Sodium 1 Tablet 2 TABLET PO (19:35)
[2023-10-09 20:21] VITALS: BP 132/56; PULSE 65; RESP 16; TEMP 36.9; O2SAT 96
== END 2023-10-09 20:00 | disposition home or self-care (01) | DRG 300 ==
PROVIDERS: Admitting Provider Internal Medicine; PCP Internal Medicine; Referring Provider Internal Medicine; Visit Provider Internal Medicine
DX: E11.59 Type 2 diabetes mellitus with other circulatory complications (principal); Z68.41 Body mass index [BMI] 40.0-44.9, adult; B35.4 Tinea corporis; E66.01 Morbid (severe) obesity due to excess calories; E03.9 Hypothyroidism, unspecified; I25.10 Atherosclerotic heart disease of native coronary artery without angina pectoris; I10 Essential (primary) hypertension; K21.9 Gastro-esophageal reflux disease without esophagitis; G47.33 Obstructive sleep apnea (adult) (pediatric); M17.12 Unilateral primary osteoarthritis, left knee; E78.00 Pure hypercholesterolemia, unspecified; S39.012D Strain of muscle, fascia and tendon of lower back, subsequent encounter; N39.41 Urge incontinence; Z95.5 Presence of coronary angioplasty implant and graft; Z79.84 Long term (current) use of oral hypoglycemic drugs; Z79.82 Long term (current) use of aspirin; Z87.891 Personal history of nicotine dependence; N32.81 Overactive bladder; Z79.01 Long term (current) use of 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s; Z79.890 Hormone replacement therapy; Z86.711 Personal history of pulmonary embolism; Z86.718 Personal history of other venous thrombosis and embolism; Z79.899 Other long term (current) drug therapy
CPT/HCPCS: 36415; 72170; 73552; 80048; 80053; 82274; 82306; 82652; 82705; 82784; 82962; 83036; 83516; 83630; 83735; 84100; 84439; 84443; 85014; 85018; 85025; 85027; 85610; 94762; 97110; 97112; 97116; 97162; 97165; 97166; 97530; 97535; 97802; 99221; 99285; G0378

== ENCOUNTER → 2023-10-09 | Outpatient (CLI) | payer MEDICARE, OTHER, SELFPAY ==
[2020-02-07 08:24] VITALS: BMI 45.7
== END | disposition home or self-care (01) ==
LOC: SL 20:17
PROVIDERS: PCP Internal Medicine; Visit Provider Internal Medicine
DX: G47.30 Sleep apnea, unspecified (principal)
CPT/HCPCS: 95810

== ENCOUNTER 2023-11-27 10:00 | Outpatient (RCR) | payer MEDICARE, OTHER, SELFPAY ==
[2020-02-07 08:24] VITALS: BMI 45.7
--- NOTE | 2023-10-14 10:17 | HP.PTEVAL ---
Patient's Visit Information Visit Information Visit Information: YOBANI REID is a 78 year old F referred to Physical Therapy by Dr. Jennifer Black DO with a diagnosis of R hip contusion. Date of Evaluation: 10/14/23 Physical Therapist: Sami Cool, PT, ATC Visit Plan Frequency: 2-3x /Week Duration: 3 Weeks Plan: Gait with FGA activity, B LE strengthening, balance and proprio, nustep, and HEP Subjective Subjective: Pt reports she experienced a fall approximately 2 weeks ago. Pt notes she was walking with a dog when her feet became tangled and she fell, and landed on her R hip. Pt reports only one other recent fall in March of 2023 secondary to a strong wind [place]. Pt reports she has noticed more unsteadiness with her gait over the last several months. Pt denies any tingling or numbness in her LE's at this time. 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 Pt has never ambulated with the use of an assistive device prior to now (she uses a cane now). Pt has 3 stairs into her house and is able to negotiate them without difficulty. Pt lives in a one story [place]. 0/10 pain while sitting here in the clinic, 1/10 at worst. Pain R hip: Pain Intensity (Out of 10): 0 Pain Intensity Range: 1 Objective Objective: Neuro: B LE sensation is WNL to light touch. MMT: B hip flex and knee flex 4/5. All other B LE measurements 5/5 throughout Gait: Pt ambulates with the use of a cane. Slow ligia noted today. FGA: - Indicating only minor risk of falling Balance/Special Test Scores Functional Gait Assessment Score: 19 % Disability: 36.6700 Lower Extremity Functional Score: 48 Goals Goal 1:: Increase B LE strength x 1 grade to aid with stair negotiation Goal Time Frame: 2-4 Weeks Goal 2:: Improve the FGA score by 5 points to aid with preventing future falls Goal Time Frame: 2-4 Weeks Goal 3:: I with HEP Goal Time Frame: 2-4 Weeks Rehabilitation Potential Physical Therapy Diagnosis: Pt has R hip pain, unsteady gait, and difficulty with stairs secondary to debilitation Rehabilitation Potential: Good Anticipated Interventions Patient/Client Instruction: Educate patient on: Condition and Plan of Care For the Purpose of:: To improve self management Therapeutic Exercise to Include: Strength training, Endurance training, Balance training and Gait and locomotor training For the Purpose of:: To decrease pain, To improve muscle performance and motor function and To improve gait and locomotor functions Text: Thank you for the opportunity to evaluate your patient. For Medicare and Medicare HMO plans, please review the plan of care and approve it. It will need to be FAXED BACK to us at [phone] for Medicare purposes. For Medicare only, by signing this I certify the plan of care. Please let me know if there are questions or concerns regarding this plan of care. Physician Signature: Date:
--- NOTE | 2023-11-27 11:03 | HP.PTDCSUM ---
Discharge Summary D/C summary: It has been my pleasure to treat YOBANI REID referred by Dr. Jennifer Black DO, with the diagnosis of R hip contusion for a total of 7 visit(s). Discharge Date: Please see the following information for a summary of their discharge status. Subjective Subjective: I am ready for discharge. I feel good today Pain R hip: Pain Intensity (Out of 10): 0 Overall Improvement % Improvement: 90 Objective Objective/Function: R hip pain ranges from 0-2/10 B LE strength 5/5 throughout FGA: /30 indicating normal balance I with HEP Rx goals achieved Goals Goal 1:: Increase B LE strength x 1 grade to aid with stair negotiation Goal Progress: Goal Met Goal 2:: Improve the FGA score by 5 points to aid with preventing future falls Goal Progress: Goal Met Goal 3:: I with HEP Goal Progress: Goal Met Plan Plan: Discharge to HEP D/C Information d/c sentence: If there are questions or concerns regarding this patient's physical therapy, please feel free to call me at [phone]. Thank you for the referral of this patient. Sincerely, Sami Cool, PT, ATC Balance/Gait/Functional tests Balance/Special Test Scores Functional Gait Assessment Score: 26 % Disability: 13.3400 Lower Extremity Functional Score: 61 Improvement % Improvement: 90
== END 2023-11-27 17:16 | disposition home or self-care (01) ==
LOC: PT 10:00
PROVIDERS: PCP Internal Medicine; Referring Provider Internal Medicine; Visit Provider Internal Medicine
DX: S70.01XD Contusion of right hip, subsequent encounter (principal)
CPT/HCPCS: 97110; 97161; 97164

== ENCOUNTER → 2024-09-03 | Outpatient (CLI) | payer MEDICARE, OTHER, SELFPAY ==
[2020-02-07 08:24] VITALS: BMI 45.7
--- NOTE | 2024-09-03 06:38 | ECHOCS_ITS ---
Reason For Study: HEART DISEASE Procedure This was a 2D Doppler, Color Flow transthoracic echocardiogram. The study was technically difficult. Exam performed in department. Left Ventricle Normal LV size. Mild concentric left ventricular hypertrophy. The left ventricular ejection fraction is 70 %. Stage 1 diastolic dysfunction. Right Ventricle Normal right ventricle. Atria The left atrium is mildly enlarged. Normal right atrium. Mitral Valve Trivial mitral valve insufficiency. Tricuspid Valve Trivial tricuspid valve insufficiency. Right ventricular systolic pressure estimated to be 45 mmHg. Aortic Valve Trisinus/trileaflet aortic valve. Pulmonic Valve The pulmonic valve is not well visualized. Great Vessels Normal sized aortic root. Pericardium/Pleural No pericardial effusion. Medication Diluted definity 3ml given slow IV push to enhance endocardial definition. MMode/2D Measurements & Calculations LVIDd: 4.4 cm IVSd: 1.2 cm Ao root diam: 3.0 cm LVIDs: 2.6 cm LVPWd: 1.2 cm RVDd: 3.5 cm FS: 40.3 % LAV(MOD-bp): 63.3 ml LVAd ap4: 28.4 cm2 SV(MOD-sp4): 60.7 ml LAV(MOD-bp) Indexed: 29.2 ml/m2 LVLd ap4: 7.8 cm LAV(MOD-sp2): 59.3 ml EDV(MOD-sp4): 87.2 ml LAV(MOD-sp4): 60.2 ml EDV(sp4-el): 88.0 ml LVAs ap4: 14.1 cm2 LVLs ap4: 6.2 cm ESV(MOD-sp4): 26.5 ml ESV(sp4-el): 27.2 ml EF(MOD-sp4): 69.6 % EF(sp4-el): 69.1 % SV(sp4-el): 60.9 ml LA A4 area: 22.5 cm2 LA dimension(2D): 3.4 cm RA A4 area: 18.4 cm2 TAPSE: 2.1 cm Time Measurements MV dec time: 0.32 sec Doppler Measurements & Calculations MV E max simone: 62.0 cm/sec Lat Peak E' Simone: 10.3 cm/sec Med Peak E' Simone: 8.1 cm/sec MV A max simone: 98.0 cm/sec E/E' lat: 6.0 E/E' med: 7.7 MV E/A: 0.63 Ao V2 max: 151.0 cm/sec LV V1 max: 112.7 cm/sec PA V2 max: 110.8 cm/sec Ao max P.1 mmHg LV V1 max P.1 mmHg TR max simone: 319.2 cm/sec TR max P.7 mmHg ECHO/Echo Complete W/ Contrast Interpretation Summary Mild concentric left ventricular hypertrophy. The left ventricular ejection fraction is 70 %. Stage 1 diastolic dysfunction. The left atrium is mildly enlarged. Right ventricular systolic pressure estimated to be 45 mmHg. Ordering Physician: Augustin Moreira Referring Physician: JOSE DE JESUS HARRINGTON Performed By: Sharonda French RDCS
--- NOTE | 2024-09-06 08:51 | STRESSREP ---
Stress Test Report Date: 09/03/2024 Procedure: Pharmacologic stress nuclear imaging study Indications: Chest pain Consent: Per the patient Procedure: The patient underwent pharmacologic (Regadenoson 0.4mg ) evaluation with a peak heart rate of 76 beats per minute (53%predicted maximal heart rate) and a peak blood pressure of 132/72 mmHg. The baseline ECG demonstrated sinus rhythm, right bundle branch block, inferior lateral ST depressions. The peak pharmacologic ECG demonstrated no diagnostic changes secondary to baseline abnormalities. There were no cardiac dysrhythmias pretest, during pharmacologic infusion, or recovery. There was no complaint of chest discomfort during pharmacologic infusion or recovery. The patient was injected with 14.8 millicuries of technetium 99m Cardiolite and subsequently rest SPECT Cardiolite nuclear imaging was obtained in the horizontal long, vertical long, and short axis views. The patient underwent pharmacologic (Regadenoson) evaluation. The patient was injected with 44.4 millicuries of technetium 99m Cardiolite and subsequently stress SPECT Cardiolite nuclear imaging was obtained in the horizontal long, vertical long, and short axis views. A gated Cardiolite study at peak stress was obtained. The examination was stopped secondary to completion of protocol. Rest and stress SPECT Cardiolite nuclear imaging status post realignment, normalization, and attenuation correction demonstrate no fixed or reversible perfusion defects. There is end systolic thickening and brightening. The gated Cardiolite study demonstrates myocardial thickening and inward wall motion. The reported LVEF is 77%. Impression: 1. Pharmacologic (Regadenoson) evaluation 2. Peak pharmacologic ECG with no diagnostic changes. 3. There were no cardiac dysrhythmias pretest, during pharmacologic infusion, or recovery. 5. Rest and stress SPECT Cardiolite nuclear imaging demonstrate relative uniform tracer uptake and myocardial perfusion appearing within normal limits. 6. The gated Cardiolite study reports an LVEF of 77%. This note was generated with [employer] software. It may contain incorrect words, spelling, and punctuation that were not noted in checking the note before signing.
== END | disposition home or self-care (01) ==
PROVIDERS: PCP Internal Medicine; Referring Provider Internal Medicine Cardiovascular Disease; Visit Provider Internal Medicine Cardiovascular Disease
DX: I51.89 Other ill-defined heart diseases (principal); I10 Essential (primary) hypertension; E78.2 Mixed hyperlipidemia; Z95.5 Presence of coronary angioplasty implant and graft
CPT/HCPCS: 78452; 93017; 93306; A9500; Q9957; A4216; C8929; J2785

== ENCOUNTER → 2025-02-16 | Outpatient (CLI) | payer MEDICARE, OTHER, SELFPAY ==
[2020-02-07 08:24] VITALS: BMI 45.7
[2025-02-16 10:58] LABS: Anion Gap 11 (5-15); BUN 25 mg/dL (4-19); BUN/Creat Ratio 17.6 RATIO (10-20); Calcium,Total 10.3 mg/dL (7.6-11.0); Carbon Dioxide 26.6 mmol/L (21.0-32.0); Chloride 101 mmol/L (98-108); Creatinine, Serum 1.44 mg/dL (0.70-1.20); EST Glomerular Filtration Rate 37 (>60); Glucose 110 mg/dL (70-99); Potassium 4.5 mmol/L (3.3-5.1); Sodium Level 138 mmol/L (133-145)
== END | disposition home or self-care (01) ==
LOC: LAB 09:32
PROVIDERS: PCP Internal Medicine; Referring Provider Internal Medicine Cardiovascular Disease; Visit Provider Internal Medicine Cardiovascular Disease
DX: I10 Essential (primary) hypertension (principal)
CPT/HCPCS: 36415; 80048

== ENCOUNTER → 2025-07-27 | Outpatient (CLI) | payer MEDICARE, OTHER, SELFPAY ==
[2020-02-07 08:24] VITALS: BMI 45.7
[2025-07-27 10:58] LABS: AST(SGOT) 21 U/L (<=31); Alanine Aminotransfer ALT/SGPT 17 U/L (<=34); Albumin, Serum 4.2 g/dL (3.4-4.8); Alkaline Phosphatase 50 U/L (35-104); Anion Gap 10 (5-15); BUN 22 mg/dL (4-19); BUN/Creat Ratio 18.7 RATIO (10-20); Calcium,Total 10.4 mg/dL (7.6-11.0); Carbon Dioxide 23.8 mmol/L (21.0-32.0); Chloride 106 mmol/L (98-108); Cholesterol 159 mg/dL (<=200); Globulin 3.5 g/dL (2.2-4.2); Glucose 111 mg/dL (70-99); Low Density Lipoprotein Calc. 86 mg/dL; Potassium 4.8 mmol/L (3.3-5.1); Triglycerides 78 mg/dL; Very Low Density Lipoprotein 16 mg/dL (5-40); cholesterol:hdl ratio screen 2.79
== END | disposition home or self-care (01) ==
LOC: LAB 09:37
PROVIDERS: PCP Internal Medicine; Referring Provider Internal Medicine Cardiovascular Disease; Visit Provider Internal Medicine Cardiovascular Disease
DX: I10 Essential (primary) hypertension (principal); E11.59 Type 2 diabetes mellitus with other circulatory complications; E78.2 Mixed hyperlipidemia; I25.10 Atherosclerotic heart disease of native coronary artery without angina pectoris
CPT/HCPCS: 36415; 80053; 80061

== ENCOUNTER 2025-09-05 21:41 | Emergency (ER) | payer MEDICARE, OTHER, SELFPAY ==
[2020-02-07 08:24] VITALS: BMI 45.7
[2025-09-05 21:42] VITALS: BP 222/58; PULSE 55; RESP 14; TEMP 36.6; O2SAT 98
[2025-09-05 21:45] VITALS: BP 181/74
[2025-09-05 22:28] VITALS: BMI 43.4
--- OUTSIDE RECORDS SUMMARY | 2025-09-05 22:32 | XMS RPT_ITS | CCD ---
Author Organization [facility] Care Team Providers Care Windows Infrastructure Engineer Name Role Phone BERTHA, INDRA Unavailable Unavailable BERTHA, INDRA Unavailable Unavailable BERTHA, INDRA Unavailable Unavailable BERTHA, INDRA Unavailable Unavailable BERTHA, INDRA Unavailable Unavailable BERTHA, INDRA Unavailable Unavailable LEN JOSE DE JESUS Unavailable Unavailable BERTHA, INDRA E Unavailable Unavailable BERTHA, INDRA E Unavailable Unavailable BERTHA, INDRA E Unavailable Unavailable BERTHA, INDRA E Unavailable Unavailable Jose De Jesus Harrington MD Primary Care Provider Dr. Jose De Jesus Harrington Primary Care Provider Dr. Jose De Jesus Harrington Referring Provider Maddy BILINGUAL INSTRUCTOR, BILINGUAL INSTRUCTOR-C Gold Paige Attending Provider Jose De Jesus Harrington MD Primary Care Provider Jose De Jesus Harrington MD Primary Care Provider Dr. Jose De Jesus Harrington Primary Care Provider Dr. Jose De Jesus Harrington Referring Provider Markus BILINGUAL INSTRUCTOR, BILINGUAL INSTRUCTOR-C Victoriano Attending Provider Dr. Jose De Jesus Harrington Primary Care Provider Dr. Jose De Jesus Harrington Referring Provider Markus BILINGUAL INSTRUCTOR, BILINGUAL INSTRUCTOR-C Victoriano Attending Provider MD Alfredito Bowie Emergency Provider Dr. Yonatan Portillo Admit Provider Dr. Yonatan Portillo Attending Provider Dr. Yonatan Portillo Other Provider Bart, Dr. Garcia Attending Provider Bart, Dr. Garcia Other Provider Sementi, Dr. Jennifer Whittaker Admit Provider Sementi, Dr. Jennifer Whittaker Attending Provider Sementi, Dr. Jennifer Whittaker Other Provider Sementi, Dr. Jennifer Whittaker Referring Provider Jose De Jesus Harrington MD Primary Care Provider Jay DIRECT SUPPORT STAFF.GARDENING SUPERVISOR, Herbert Unavailable Jena DIRECT SUPPORT STAFF.COMPENSATION DIRECTOR, Olimpia Unavailable Jena DIRECT SUPPORT STAFF.COMPENSATION DIRECTOR, Olimpia Shiela Unavailable Jena DIRECT SUPPORT STAFF.COMPENSATION DIRECTOR, Olimpia Unavailable Len DIAZ, Dr. Jose De Jesus Donohue Primary Care Provider Len DIAZ, Dr. Jose De Jesus Donohue Referring Provider Harish DIAZ, Dr. Ruffin Attending Provider Harish DIAZ, Dr. Ruffin Referring Provider Jena DIRECT SUPPORT STAFF.COMPENSATION DIRECTOR, Olimpia Unavailable Jay DIRECT SUPPORT STAFF.GARDENING SUPERVISOR, Herbert Unavailable Dr. Jose De Jesus Harrington MD Primary Care Provider [phone] Fran DIAZ, Dr. Arias Attending Provider Len DIAZ, Dr. Jose De Jesus Donohue Referring Provider Harish DIAZ, Dr. Ruffin Attending Provider Harish DIAZ, Dr. Ruffin Referring Provider JOSE DE JESUS HARRINGTON Primary Care Unavailable JOSE DE JESUS HARRINGTON Primary Care Unavailable JOSE DE JESUS HARRINGTON Primary Care Unavailable JAY, HERBERT Referring Unavailable MINAAMPJOSE DE JESUS BIGGS Primary Care Unavailable JAY, HERBERT Referring Unavailable MINAAMPDIAN, JOSE DE JESUS D Primary Care Unavailable HERBERT JAY Attending Unavailable TALAMPAS, JOSE DE JESUS D Primary Care Unavailable TALAMPAS, JOSE DE JESUS D Attending Unavailable TALAMPAS, JOSE DE JESUS D Primary Care Unavailable TALAMPAS, JOSE DE JESUS D Primary Care Unavailable TALAMPAS, JOSE DE JESUS D Primary Care Unavailable TALAMPAS, JOSE DE JESUS D Primary Care Unavailable OLIMPIA GOMEZ Attending Unavailable TALAMPAS, JOSE DE JESUS D Primary Care Unavailable TALAMPAS, JOSE DE JESUS D Primary Care Unavailable TALAMPAS, JOSE DE JESUS D Primary Care Unavailable TALAMPAS, JOSE DE JESUS D Primary Care Unavailable TALAMPAS, JOSE DE JESUS D Primary Care Unavailable HERBERT JAY Attending Unavailable TALAMPAS, JOSE DE JESUS D Primary Care Unavailable OLIMPIA GOMEZ Referring Unavailable TALAMPAS, JOSE DE JESUS D Primary Care Unavailable TALAMPAS, JOSE DE JESUS D Primary Care Unavailable ROSEANN ELIZABETH Attending Unavailable TALAMPAS, JOSE DE JESUS D Referring Unavailable TALAMPAS, JOSE DE JESUS D Primary Care Unavailable TALAMPAS, JOSE DE JESUS D Primary Care Unavailable TALAMPAS, JOSE DE JESUS D Primary Care Unavailable TALAMPAS, JOSE DE JESUS D Primary Care Unavailable Harish, Augustin Attending Unavailable Talampas, Jose De Jesus D Primary Care Unavailable Harish, Augustin Referring Unavailable Harish, Augustin Attending Unavailable Talampas, Jose De Jesus D Referring Unavailable Talampas, Jose De Jesus D Primary Care Unavailable Victoriano Aparicio NP Attending Unavailable Talampas, Jose De Jesus D Primary Care Unavailable Harish, Augustin Consulting Unavailable Talampas, Jose De Jesus D Primary Care Unavailable Harish, Augustin Attending Unavailable Harish, Augustin Referring Unavailable Talampas, Jose De Jesus D Primary Care Unavailable Talampas, Jose De Jesus D Referring Unavailable Harish, Augustin Attending Unavailable Juana Peters Attending Unavailable Talampas, Jose De Jesus D Referring Unavailable Talampas, Jose De Jesus D Primary Care Unavailable Juana Peters Attending Unavailable Talampas, Jose De Jesus D Referring Unavailable Talampas, Jose De Jesus D Primary Care Unavailable Juana Peters Attending Unavailable Talampas, Jose De Jesus D Referring Unavailable Talampas, Jose De Jesus D Primary Care Unavailable Harish, Augustin Attending Unavailable Talampas, Jose De Jesus D Primary Care Unavailable Harish, Augustin Referring Unavailable Talampas, Jose De Jesus D Primary Care Unavailable Harish, Augustin Attending Unavailable Harish, Augustin Referring Unavailable Allergies Allergy Classification Reported Allergen(s) Allergy Type Date of Onset Reaction(s) Facility (20 sources) Adhesive Tape; Translations: [ADHESIVE TAPE (ROSINS)] Propensity to adverse reactions (disorder) 5 Other: See Comments [facility] Repository (20 sources) amoxicillin; Translations: [AMOXICILLIN] Drug Allergy [facility] Repository (20 sources) ampicillin; Translations: [AMPICILLIN] Drug Allergy 5 [facility] Repository (13 sources) cephalexin; Translations: [CEPHALEXIN] Drug Allergy 5 [facility] Repository (20 sources) niacin; Translations: [NIACIN] Drug Allergy 5 [facility] Repository (20 sources) Penicillins; Translations: [PENICILLINS] Propensity to adverse reactions (disorder) 9 [facility] Repository (20 sources) Sulfonamides (Antibiotic); Translations: [SULFA (SULFONAMIDE ANTIBIOTICS)] Propensity to adverse reactions (disorder) 5 [facility] Repository (16 sources) Adhesive agent; Translations: [adhesive] Allergy to substance 2 [facility] (16 sources) Cephalexin; Translations: [cephalexin monohydrate] Drug Allergy 2 [facility] (3 sources) metFORMIN Drug Allergy 3 Diarrhea [facility] (20 sources) Adhesive Tape-Silicones; Translations: [ADHESIVE TAPE-SILICONES] Drug Allergy 4 [facility] Work Phone: (6 sources) Lactose Drug Allergy 5 Abd cramps/diarrhea [facility] (1 source) Lactose Drug Allergy 5 [facility] Repository Medications Current Medications Medication Drug Class(es) Dates Sig (Normalized) Sig (Original) amLODIPine 2.5 mg oral tablet (20 sources) Dihydropyridine Calcium Channel Alex Start: 07-27-2024 End: 02-09-2025 take 1 tablet by mouth once daily amLODIPine (NORVASC) 2.5 mg tablet Take 1 tablet by mouth once daily. 90 tablet 3 07/27/2024 Active Start: 09-11-2023 End: 10-08-2023 take 1 tablet by mouth once daily Amlodipine 5 mg tablet Discontinued 5 mg PO DAILY 30 September 11, 2023 12:00am October 08, 2023 8:49pm blood presure aspirin 81 mg chewable tablet (20 sources) Platelet Aggregation Inhibitor, Nonsteroidal Anti-inflammatory Drug Start: 05-10-2014 take 1 tablet by mouth at bedtime Aspirin 81 MG tablet,chewable Active 81 mg PO AT BEDTIME May 10, 2014 12:00am hearth Start: 01-08-2010 aspirin(ECOTRI N LOW STRENGTH 81 MG TAB) Take one(1) tablet daily. 0 01/08/2010 Active 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: Take one(1) tablet d aily. atenolol 25 mg oral tablet (20 sources) beta-Adrenergic Alex Start: 07-10-2020 End: 04-19-2025 take 1 tablet by mouth once daily atenolol (TENORMIN) 25 mg tablet Indications: Essential hypertension Take 1 tablet by mouth once daily. 14 tablet 04/19/2025 Active Start: 05-10-2014 End: 07-10-2020 Atenolol 50 MG tablet Discon tinued 25 mg PO DAILY May 10, 2014 12:00am July 10, 2020 1:26pm BP Start: 05-10-2014 End: 07-10-2020 take 25 mg by mouth once daily Atenolol Discontinued 2 5 MG PO DAILY May 09, 2014 11:00pm July 10, 2020 12:26pm 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: Take 1 tablet by anel th once daily. atorvastatin 40 mg oral tablet (20 sources) HMG-CoA Reductase Inhibitor Start: 07-10-20 End: 10-20-20 take 1 tablet by mouth once daily at bedtime for hyperlipidemia atorvastatin (LIPITOR) 40 mg tablet Take 1 tablet by mouth daily at bedtime. For cholesterol. 90 tablet 3 10/20/2024 Active Start: 05-10-2014 End: 07-10-2020 Atorvastatin 80 MG tablet Discontinued 40 mg PO AT BEDTIME May 10, 2014 12:00am July 10, 2020 1:26pm Start: 05-10-2014 End: 07-10-2020 take 40 mg by mouth at bedtime Atorvastatin Discontinu ed 40 MG PO AT BEDTIME May 09, 2014 11:00pm July 10, 2020 12:26pm 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: Take 1 tablet by anel th daily at bedtime. For cholesterol. azithromycin 250 mg oral tablet (3 sources) Macrolide Antimicrobial Start: 02-21-2023 End: 02-26-2023 azithromycin (ZITHROMAX Z-SHU) 250 mg tablet Indications: Sinobronchitis Take 2 tablets day one, then, 1 tablet daily until gone. Take with food 6 tablet 0 02/21/2023 02/26/2023 Active 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: Take 2 tablets day o ne, then, 1 tablet daily until gone. Take with food Blood-Glucose Meter monitoring kit (20 sources) Start: 04-10-2019 Blood-Glucose Meter monitoring kit Glucose Meter of Choice - Kit - Dx: Other DM Code E11.22 N18.3 1 Each 04/10/2019 Active Start: 04-10-2019 Blood-Glucose Meter monitoring kit Glucose Meter of Choice - Kit - Dx: Other DM Code E11.22 N18.3 1 Each 0 04/10/2019 Active 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: Glucose Meter of Cho ice - Kit - Dx: Other DM Code E11.22 N18.3 cephalexin 500 mg oral capsule (4 sources) Cephalosporin Antibacterial Start: 07-31-20 End: 08-10-20 take 1 capsule by mouth three times daily cephALEXin (KEFLEX) 500 mg capsule Take 1 capsule by mouth three times daily for 10 days. 30 capsule 0 07/31/2022 08/10/2022 Active 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: Take [address] [facility] three times daily for 10 days. cholecalciferol 0.05 mg oral capsule (20 sources) Vitamin D Start: 10-17-20 23 take 1 capsule by mouth once daily Cholecalciferol, Vitamin D3, 50 mcg (2,000 unit) cap Indications: Vitamin D deficiency Take 1 capsule by mouth once daily. 10/17/2023 Active Start: 04-18-2021 End: 09-01-2023 take 1 capsule by mouth once daily Cholecalciferol, Vitamin D3, 50 mcg (2,000 unit) cap Take 1 capsule by mouth once daily. 0 04/18/2021 09/01/2023 Discontinued 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: Take 1 capsule by mo ut once daily. diazePAM 2 mg oral tablet (14 sources) Benzodiazepine Start: 3 End: 3 take 1 tablet by mouth every eight hours as needed for muscle spasms diazePAM (VALIUM) 2 mg tablet Indications: Muscle spasm , Back strain, subsequent encounter Take 1 tablet by mouth every 8 hours as needed (back spasm) for up to 3 days. 9 tablet 0 03/13/2023 03/16/2023 Active Start: 03-08-2023 End: 08-14-2023 take 1 tablet by mouth three times daily as needed Diazepam 2 mg tablet Discontinued 2 mg PO 3 TIMES DAILY NEEDED as needed for Vertigo 10 March 08, 2023 12:00am August 14, 2023 11:37am 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: Take 1 tablet by anel th every 8 hours as needed (back spasm) for up to 3 days. Take by mouth. estradiol 0.1 mg/ml vaginal cream (3 sources) Estrogen Start: 08-04-20 Estradiol 0.01 % (0.1 mg/gram) cream Active 1 g VAGINAL 3 TIMES A WEEK August 04, 2025 12:00am fenofibrate 160 mg oral tablet (20 sources) Peroxisome Proliferator Receptor alpha Agonist Start: 09-14-20 End: 04-19-20 take 1 tablet by mouth once daily Fenofibrate (LOFIBRA) 160 mg tablet Indications: Mixed hyperlipidemia Take 1 tablet by mouth once daily. 90 tablet 3 04/19/2025 Active Start: 05-10-2014 End: 09-14-2019 take 1 tablet by mouth once daily Fenofibrate Nanocrystallized 145 MG tablet Discontinued 145 mg PO DAILY May 10, 2014 12:00am September 14, 2019 2:57pm 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: Take 1 tablet by anel th once daily. fosinopril sodium 40 mg oral tablet (20 sources) Angiotensin Converting Enzyme Inhibitor Start: 09-01-2023 End: 09-01-2023 take 1 tablet by mouth twice daily Fosinopril 40 mg tablet Active 40 mg PO TWICE A DAY 60 September 01, 2023 4:22pm this is a dose increase Start: 05-10-2014 End: 04-19-2025 take 1 tablet by mouth once daily fosinopril sodium (MONOPRIL) 40 mg tablet Indications: Essential hypertension Take 1 tablet by mouth once daily. 90 tablet 3 04/19/2025 Active 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: Take 1 tablet by anel th once daily. furosemide 40 mg oral tablet (12 sources) Loop Diuretic Start: 02-16-2025 take 1 tablet by mouth every other day Furosemide 40 mg tablet Active 40 mg PO every other day 90 February 16, 2025 3:36pm Start: 02-09-2025 End: 02-16-2025 take 1 tablet by mouth once daily Furosemide 40 mg tablet Discontinued 40 mg PO daily 90 February 09, 2025 12:00am February 16, 2025 3:37pm hydrocortisone 0.025 mg/mg topical ointment (20 sources) Corticosteroid Start: 04-18-2021 hydrocortisone 2.5 % ointment Apply 1 application to affected area twice daily. 30 g 04/18/2021 Active Start: 09-14-2019 End: 07-10-2020 Hydrocortisone 2.5 % cream A ctive 1 NMA TOPICAL TWICE A DAY as needed for Itching July 10, 2020 1:25pm Start: 09-14-2019 End: 07-10-2020 Hydrocortisone 2.5 % cream D iscontinued 1 NMA TOPICAL TWICE A DAY September 14, 2019 12:00am July 10, 2020 1:27pm 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: Apply 1 application to affected area twice daily. Inhalational Spacing Device (1 source) Start: 02-22-20 End: 02-22-20 Inhalational Spacing Device Indications: Sinobronchitis 1 Device one time only for 1 dose. 1 Each 0 02/21/2023 02/21/2023 Active 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: 1 Device one time on ly for 1 dose. 24 hr isosorbide mononitrate 30 mg extended release oral tablet (20 sources) Nitrate Vasodilator Start: 10-26-20 End: 10-20-20 take 1 tablet by mouth once daily isosorbide mononitrate ER (IMDUR) 30 mg 24 hr tablet Take 1 tablet by mouth once daily. 90 tablet 3 10/20/2024 Active 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: Take 1 tablet by anel th once daily. levothyroxine sodium 0.112 mg oral tablet (20 sources) l-Thyroxine Start: 05-10-20 End: 10-20-20 take 1 tablet by mouth once daily levothyroxine (SYNTHROID) 112 mcg tablet Indications: Acquired hypothyroidism Take 1 tablet by mouth once daily. 90 tablet 3 10/20/2024 Active 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: Take 1 tablet by anel th once daily. magnesium oxide 400 mg oral tablet (20 sources) Start: 10-27-20 End: 10-20-20 take 2 tablets by mouth twice daily magnesium oxide (MAG-OX) 400 mg (241.3 mg magnesium) tablet Indications: Hypomagnesemia Take 2 tablets by mouth two times a day. 360 tablet 3 10/20/2024 10/20/2025 Active Start: 12-11-2017 End: 02-25-2024 take 2 tablets by mouth twice daily magnesium oxide (MAG-OX) 400 mg tablet Take 2 tablets by mouth twice daily. 360 tablet 5 12/11/2017 02/25/2024 Discontinued Start: 05-10-2014 End: 10-27-2019 take 1 tablet by mouth twice daily Magnesium Oxide 400 MG tablet Discontinued 400 mg PO TWICE A DAY May 10, 2014 12:00am October 27, 2019 11:37am 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: Take 2 tablets by mo ut twice daily. Take 2 tablets by mo ut two times a day. meclizine hydrochloride 25 mg oral tablet (20 sources) Antiemetic Start: 7 take 1 tablet by mouth every six hours as needed meclizine (ANTIVERT) 25 mg tab Take 1 tablet by mouth every 6 hours as needed (dizziness). (prescription given from ER) 20 tablet 10/22/2017 Active Start: 10-22-2017 End: 09-26-2023 take 1 tablet by mouth three times daily as needed Meclizine 25 MG tablet Discontinued 25 mg PO 3 TIMES DAILY NEEDED as needed for Vertigo October 22, 2017 1:00am September 26, 2023 11:49am 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: Take 1 tablet by [facility] every 6 hours as needed (dizziness). (prescription given from ER) Multivitamin With Folic Acid (9 sources) Start: 05-10-20 14 take 1 tablet by mouth once daily Multivitamin With Folic Acid Active 1 TABLET PO DAILY May 10, 2014 8:42pm Start: 05-10-2014 End: 08-14-2023 take 1 tablet by mouth once daily Multivitamin With Folic Acid Discontinued 1 TABLET PO DAILY May 09, 2014 11:00pm August 14, 2023 10:37am Start: 05-10-2014 End: 08-14-2023 take 1 tablet by mouth once daily Multivitamin With Folic Acid Discontinued 1 TABLET PO DAILY May 10, 2014 12:00am August 14, 2023 11:37am Start: 05-10-2014 take 1 tablet by anle th once daily Multivitamin With Folic Acid Active 1 TABLET PO DAILY May 09, 2014 11:00pm Start: 05-10-2014 take 1 tablet by anel th once daily Multivitamin With Folic Acid Active 1 TABLET PO DAILY May 10, 2014 12:00am mupirocin 0.02 mg/mg topical ointment (3 sources) RNA Synthetase Inhibitor Antibacterial Start: 03-13-2023 End: 03-23-2023 mupirocin (BACTROBAN) 2 % ointment Indications: Laceration of right thumb without foreign body without damage to nail, subsequent encounter Apply 1 application to affected area once daily for 10 days. Thumb, right 15 g 1 03/13/2023 03/23/2023 Active 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: Apply 1 application to affected area once daily for 10 days. Thumb, right nirmatrelvir tablet 150 mg and ritonavir tablet 100 mg in a dose pack (PAXLOVID) (1 source) Start: 05-16-2022 End: 05-21-2022 nirmatrelvir tablet 150 mg and ritonavir tablet 100 mg in a dose pack (PAXLOVID) Administer ONE pink nirmatrelvir 150 mg tablet and ONE white ritonavir 100 mg tablet for a total of two tablets twice daily. 20 tablet 0 05/16/2022 05/21/2022 Active 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: Administer ONE pink nirmatrelvir 150 mg tablet and ONE white ritonavir 100 mg tablet for a total of two tablets twice daily. nitroglycerin 0.4 mg sublingual tablet (20 sources) Nitrate Vasodilator Start: 05-10-2014 End: 04-19-2024 nitroglycerin sublingual (NITROQUICK) 0.4 mg SL tablet Indications: Atherosclerosis of [place] coronary artery of [place] heart without angina pectoris Dissolve 1 tablet under the tongue as needed. DISSOLVE ON TONGUE FOR CHEST PAIN. IF NO PAIN RELIEF, CALL 911 25 tablet 2 04/19/2024 Active Start: 05-10-2014 Nitroglycerin Active 0.4 MG SL Q5M May 09, 2014 11:00pm 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: Dissolve 1 tablet un deborah the tongue as needed. DISSOLVE ON TONGUE FOR CHEST PAIN. IF NO PAIN RELIEF, CALL 911 omeprazole 40 mg delayed release oral capsule (20 sources) Proton Pump Inhibitor Start: 12-29-19 End: 04-14-20 26 take 1 capsule by mouth once daily omeprazole (PRILOSEC) 40 mg capsule Take 1 capsule by mouth once daily. 90 capsule 3 04/19/2025 04/14/2026 Active 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: Take 1 capsule by [facility] once daily. oxymetazoline hydrochloride 0.5 mg/ml nasal spray (20 sources) Start: 03-14-20 09 oxymetazoline hcl(AFRIN SINUS NO DRIP 0.05 % NASAL MIST) as necessary 0 03/14/2009 Active 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: as necessary potassium chloride 20 meq extended release oral tablet (6 sources) Start: 02-10-20 take 1 tablet by mouth once daily Potassium Chloride 20 mEq tablet extended release Active 20 meq PO daily 90 3 February 09, 2025 12:00am warfarin sodium 5 mg oral tablet (20 sources) Vitamin K Antagonist Start: 08-25-20 Warfarin 2.5 mg tablet Active 2.5 mg PO .CHANDANAU August 25, 2024 12:00am Start: 09-26-2023 End: 08-25-2024 Warfarin 7.5 mg tablet Disco ntinued 7.5 mg PO MOTUWE September 26, 2023 12:00am August 25, 2024 2:01pm blood thinner Start: 08-06-2022 End: 09-01-2023 warfarin (COUMADIN) 5 mg tab let Indications: nursing home current use of 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 10 mg on Friday and Friday and 7.5 mg all other days, or as directed 20 tablet 0 08/06/2022 09/01/2023 Discontinued Start: 12-08-2020 End: 04-19-2025 warfarin (COUMADIN) 5 mg tab let Take 5 mg Fri, Fri and 7.5 mg all other days or as directed 30 tablet 12/08/2020 Active Start: 09-08-2018 End: 04-24-2022 take 1 tablet by mouth once daily Warfarin 5 mg tablet Discontinued 5 mg PO DAILY October 18, 2019 6:45pm April 24, 2022 10:49am Please contact the information source for Protocol details. Start: 10-22-2017 End: 03-17-2018 take 1 tablet by mouth once Warfarin 5 MG tablet Disco ntinued 5 mg PO every Friday, , , Sat October 22, 2017 1:00am March 17, 2018 8:57am Start: 10-22-2017 End: 03-17-2018 Warfarin 7.5 MG tablet Disco ntinued 7.5 mg PO MOWEFR October 22, 2017 1:00am March 17, 2018 8:57am 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: 5mg Fri,Fri and 7.5m g all other days or as directed Take 5 mg Fri, Fri a nd 7.5 mg all other days or as directed 10 mg on Friday and Friday and 7.5 mg all other days, or as directed Completed/Discontinued Medications Medication Drug Class(es) Dates Sig (Normalized) Sig (Original) acetaminophen 325 mg / HYDROcodone bitartrate 5 mg oral tablet (20 sources) Opioid Agonist Start: 10-08-2023 End: 08-25-2024 Hydrocodone-Acetami nophen 5-325 mg Tablet Discontinued 2 {tbl} PO 2199 14 7 0 October 08, 2023 August 25, 2024 1:59pm Contusion of hip and thigh Contusion of unspecified hip, initial encounter Contusion of unspecified thigh, initial encounter Start: 10-08-2023 Hydrocodone-Ac etaminophen Active 2 TABLET PO 0 14 7 October 08, 2023 Start: 09-25-2023 End: 02-26-2024 Hydrocodone-Acetaminophen 5- 325 mg tablet Discontinued 1 {tbl} PO EVERY 6 HOURS NEEDED as needed for Pain 10 3 0 September 25, 2023 February 26, 2024 2:22pm Contusion of hip and thigh Contusion of unspecified hip, initial encounter Contusion of unspecified thigh, initial encounter Start: 09-25-2023 take 1 tablet by anel th every six hours as needed Hydrocodone-Acetaminophen Active 1 TABLE T PO EVERY 6 HOURS NEEDED 10 3 September 25, 2023 Start: 03-13-2023 End: 03-18-2023 take 1 tablet by mouth every eight hours as needed for pain HYDROcodone-Acetaminophen (NORCO) 7.5-32 5 mg per tablet Indications: Laceration of right thumb without foreign body without damage to nail, subsequent encounter , Open fracture of base of distal phalanx of right thumb , Contusion of left knee, subsequent encounter , Abrasion, left knee, subsequent encounter , Muscle spasm , Back strain, subsequent encounter Take 1 tablet by mouth every 8 hours as needed for pain for up to 5 days. 15 tablet 0 03/13/2023 03/18/2023 Active 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: Take 1 tablet by anel th every 8 hours as needed for pain for up to 5 days. acetaminophen 325 mg / oxyCODONE hydrochloride 5 mg oral tablet (12 sources) Opioid Agonist Start: 03-08-2023 End: 08-14-2023 Oxycodone-Acetaminophen (Percocet) 5-325 mg tablet Discontinued 1 {tbl} PO Q8H as needed for pain 10 3 0 March 08, 2023 August 14, 2023 11:37am Strain of lumbar region Strain of muscle, fascia and tendon of lower back, initial encounter Start: 03-08-2023 End: 03-13-2023 oxyCODONE-acetaminophen (PER COCET) 5-325 mg tablet Take by mouth. 0 03/08/2023 03/13/2023 Discontinued 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: Take by mouth. [id number] actuat albuterol 0.09 mg/actuat metered dose inhaler (6 sources) beta2-Adrenergic Agonist Start: 023 End: take 2 puff(s) by inhalation every four hours as needed for cough albuterol HFA (PROVENTIL HFA, VENTOLIN HFA) 90 mcg/actuation inhaler Indications: Sinobronchitis Inhale 2 Puffs as instructed every 4 hours as needed for wheezing/shortness of breath (cough). 1 Each 0 02/21/2023 03/14/2023 Discontinued 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: Inhale 2 Puffs as in structed every 4 hours as needed for wheezing/shortness of breath (cough). atropine sulfate 0.025 mg / diphenoxylate hydrochloride 2.5 mg oral tablet (1 source) Anticholinergic, Cholinergic Muscarinic Antagonist, Antidiarrheal Start: End: take 1 tablet by mouth every six hours as needed for diarrhea and diarrhea diphenoxylate-atropin e (LOMOTIL) 2.5-0.025 mg per tablet Indications: Diarrhea, unspecified type Take 1 tablet by mouth four times a day as needed for diarrhea for up to 14 days. 56 tablet 10/04/2024 10/04/2024 Discontinued azelastine hydrochloride 0.137 mg/actuat metered dose nasal spray (15 sources) Histamine-1 Receptor Antagonist Start: 017 End: Azelastine 137 MCG/0.137 ML aerosol,spray Discontinued 137 ug NS NEEDED as needed for Allergies August 10, 2017 12:00am July 10, 2020 1:26pm benzonatate 100 mg oral capsule (6 sources) Non-narcotic Antitussive Start: End: take 1-2 capsules by mouth three times daily as needed for cough benzonatate (TESSALON PERLES) 100 mg capsule Indications: Sinobronchitis Take 1-2 capsules by mouth three times daily as needed for cough. 60 capsule 1 02/21/2023 03/14/2023 Discontinued 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: Take 1-2 capsules by mouth three times daily as needed for cough. calcium carbonate 1500 mg oral tablet (15 sources) Start: 014 End: take 1 tablet by mouth once daily Calcium Carbonate 600 MG tablet Discontinued 600 mg PO DAILY@0800 May 10, 2014 12:00am September 14, 2019 2:58pm clindamycin 300 mg oral capsule (14 sources) Lincosamide Antibacterial Start: End: take 1 capsule by mouth every six hours Clindamycin Hcl (Cleocin Hcl) 300 mg capsule Discontinued 300 mg PO EVERY 6 HOURS 40 0 March 05, 2023 12:00am August 14, 2023 11:36am 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: Take by mouth. clopidogrel 75 mg oral tablet (20 sources) P2Y12 Platelet Inhibitor Start: 019 End: take 1 tablet by mouth once daily Clopidogrel 75 mg tablet Discontinued 75 mg PO DAILY 90 3 August 10, 2020 1:53pm January 10, 2021 2:43pm 0.8 ml enoxaparin sodium 150 mg/ml prefilled syringe (20 sources) Low Molecular Weight Heparin Start: enoxaparin (LOVENOX) 120 mg/0.8 mL injection Indications: Preop exam for internal medicine , Other pulmonary embolism without acute cor pulmonale, unspecified chronicity (HCC) , Chronic anticoagulation Inject 0.8 mL subcutaneously every 12 hours. Start 3 days prior to surgery. Last dose morning of the day prior to surgery, Resume the day after surgery and continue until INR therapeutic >2.0 14 Syringe 0 07/17/2022 Active Start: 10-26-2019 End: 10-29-2021 Enoxaparin 120 mg/0.8 mL syr butch Discontinued 120 mg SC .COMPLEX 8 2 October 26, 2019 9:25am October 29, 2021 2:17pm Bridging for heart cath hx PE X 2 Begin 10/26 with Coumadin Start: 10-18-2019 End: 10-26-2019 Enoxaparin (Lovenox) 120 mg/ 0.8 mL syringe Discontinued 120 mg SC .COMPLEX 8 2 October 20, 2019 12:54pm October 26, 2019 9:25am Bridging for heart cath hx PE X 2 120 mg SC bid on 10/24/19 for heart cath 10/25/19; after cath as directed 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: Inject 0.8 mL subcut aneously every 12 hours. Start 3 days prior to surgery. Last dose morning of the day prior to surgery, Resume the day after surgery and continue until INR therapeutic >2.0 fluticasone propionate 0.05 mg/actuat metered dose nasal spray (20 sources) Corticosteroid Start: End: 023 take 2 spray(s) by mouth once daily for congestion fluticasone (FLONASE) 50 mcg/actuation nasal spray Indications: Sinobronchitis Use 2 Sprays in each nostril once daily. Rinse mouth after use. For nasal drainage and congestion 1 Each 0 02/21/2023 03/14/2023 Discontinued Start: 05-10-2014 End: 07-10-2020 Fluticasone Propionate 1 SPR AY spray,suspension Discontinued 2 NMA NASAL DAILY as needed for Allergies May 10, 2014 12:00am July 10, 2020 1:26pm Start: 05-10-2014 End: 07-10-2020 Fluticasone Propionate Disco ntinued 2 SPRAY NASAL DAILY May 09, 2014 11:00pm July 10, 2020 12:26pm 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: Use 2 Sprays in each nostril once daily. Rinse mouth after use. For nasal drainage and congestion 24 hr metFORMIN hydrochloride 500 mg extended release oral tablet (20 sources) Biguanide Start: 2 End: take 1 tablet by mouth every twenty-four hours Metformin 500 mg tablet extended release 24 hr Discontinued mg PO April 24, 2022 12:00am April 24, 2022 10:53am Start: 04-24-2022 End: 04-24-2022 Metformin Discontinued MG PO April 23, 2022 11:00pm April 24, 2022 9:53am Start: 03-04-2022 End: 04-19-2024 take 1 tablet by mouth once daily Metformin 500 mg tablet extended release 24 hr Discontinued 500 mg PO DAILY April 24, 2022 10:53am September 26, 2023 11:50am Start: 03-28-2021 metFORMIN ER ( GLUCOPHAGE XR) 500 mg 24 hr tablet Indications: Controlled type 2 diabetes mellitus with stage 3 chronic kidney disease, without long-term current use of insulin (HCC) Take 1 tablet by mouth once daily. With meal 90 tablet 3 03/28/2021 Active Start: 04-07-2018 End: 04-24-2022 take 1 tablet by mouth once daily Metformin 500 MG tablet Discontinued 500 mg PO DAILY April 07, 2018 12:00am April 24, 2022 10:46am Start: 05-10-2014 End: 03-17-2018 take 1 tablet by mouth once daily Metformin 500 MG tablet Discontinued 500 mg PO DAILY May 10, 2014 12:00am March 17, 2018 8:57am 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: Take 1 tablet by [facility] once daily. With meal 24 hr mirabegron 50 mg extended release oral tablet (15 sources) beta3-Adrenergic Agonist Start: 021 End: 022 take 1 tablet by mouth once daily Mirabegron (Myrbetriq) 50 mg tablet extended release 24 hr Discontinued 50 mg PO DAILY October 29, 2021 1:00am April 24, 2022 10:46am Multivitamin With Folic Acid 1 TABLET tablet (6 sources) Start: 014 End: 023 take 1 tablet by mouth once daily Multivitamin With Folic Acid 1 TABLET tablet Discontinued 1 {tbl} PO DAILY May 10, 2014 12:00am August 14, 2023 11:37am nitrofurantoin, macrocrystals 25 mg / nitrofurantoin, monohydrate 75 mg oral capsule (4 sources) Nitrofuran Antibacterial Start: 025 End: take 1 capsule by mouth twice daily at mealtime Nitrofurantoin Monohyd/M-Cryst (Macrobid) 100 mg capsule Discontinued 100 mg PO TWICE A DAY 14 0 July 20, 2025 12:00am August 04, 2025 2:48pm must administer with a meal/food nystatin [id number] unt/ml oral suspension (15 sources) Polyene Antifungal Start: 018 End: Nystatin 100,000 UNIT/ML suspension Discontinued [id number] U PO NEEDED as needed for Mouth Irritation April 07, 2018 12:00am September 14, 2019 2:58pm 24 hr oxybutynin chloride 15 mg extended release oral tablet (16 sources) Cholinergic Muscarinic Antagonist Start: End: take 1 tablet by mouth once daily oxybutynin ER (DITROPAN XL) 15 mg 24 hr Extended Rel Tab Take 1 tablet by mouth once daily. 90 tablet 3 08/09/2020 12/18/2021 Discontinued (Discontinued by another Health Care Provider) Start: 05-10-2014 End: 04-24-2022 take 1 tablet by mouth once daily Oxybutynin Chloride 10 MG tablet extended release 24hr Discontinued 15 mg PO DAILY May 10, 2014 12:00am April 24, 2022 10:47am Start: 05-10-2014 End: 04-24-2022 take 15 mg by mouth once daily Oxybutynin Chloride Dis continued 15 MG PO DAILY May 09, 2014 11:00pm April 24, 2022 9:47am 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: Take 1 tablet by anel once daily. solifenacin succinate 5 mg oral tablet (20 sources) Cholinergic Muscarinic Antagonist Start: End: take 1 tablet by mouth once daily Solifenacin 5 mg tablet Discontinued 5 mg PO DAILY July 18, 2022 12:00am August 04, 2025 2:49pm bladder 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: Take 5 mg by mouth o nce daily. THERAPEUTIC MULTIVITAMIN TAB (20 sources) Start: 5 End: 3 take 1 tablet by mouth once daily THERAPEUTIC MULTIVITAMIN TAB Take one tablet by mouth daily. 0 11/11/2005 09/01/2023 Discontinued Start: 11-11-2005 take 1 tablet by anel th once daily THERAPEUTIC MULTIVITAMIN TAB Take one tablet by mouth daily. 0 11/11/2005 Active 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: Take one tablet by m outh daily. vibegron (GEMTESA) 75 mg tablet (15 sources) End: 08-10-2022 take 1 tablet by mouth once daily vibegron (GEMTESA) 75 mg tablet Take 75 mg by mouth once daily. 0 08/10/2022 Discontinued take 1 tablet by mouth once temi y vibegron (GEMTESA) 75 mg tablet Take 75 mg by mouth once daily. 0 Active 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: Take 75 mg by mouth once daily. Problems Active Problems Problem Classification Problem Date Documented Da te Episodic/Chronic Acute bronchitis (1 source) Acute bronchitis; Translations: [Acute bronchitis, unspecified] Episodic Anxiety disorders (1 source) Claustrophobia; Translations: [Claustrophobia] 11-08-2024 Chronic Chronic kidney disease (20 sources) Chronic kidney disease stage 3A ; Translations: [Stage 3a chronic kidney disease] Onset: 0 04-16-2021 Chronic Chronic kidney disease (1 source) Chronic kidney disease; Translations: [Hypertensive kidney disease with stage 3b chronic kidney disease (HCC)] Onset: 1 Conduction disorders (15 sources) Right bundle branch block; Translations: [Unspecified right bundle-branch block] 02-08-2020 Chronic Coronary atherosclerosis and other heart disease (20 sources) Atherosclerotic heart disease of [place] coronary artery without angina pectoris; Translations: [Coronary atherosclerosis] Onset: 9 12-30-2017 Chronic Coronary atherosclerosis and other heart disease (20 sources) Patient post percutaneous transluminal coronary angioplasty; Translations: [Coronary angioplasty status] Onset: 0 12-15-2009 Episodic 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: PTCA/LLUVIA to LAD 05/09 @ [id number]/25/2019:Single vessel CAD of the mid LCXNon obstructive coronary arteries; Widely patent mid LAD stents. Successful PTCA/LLUVIA mid LCX with a 3.0 x 16 Promus Synergy 10/25/2019 per NALLELY @ [facility] Diabetes mellitus with complications (20 sources) Type 2 diabetes mellitus; Translations: [Type 2 diabetes mellitus with diabetic chronic kidney disease] Onset: 4 Resolved: 8 04-16-2021 Chronic Diabetes mellitus without complication (2 sources) Diabetes mellitus without complication; Translations: [Type 2 diabetes mellitus with stage 3b chronic kidney disease, without long-term current use of insulin (HCC)] Onset: 1 Disorders of lipid metabolism (20 sources) Mixed hyperlipidemia; Translations: [Mixed hyperlipidemia] Onset: 3 02-22-2013 Chronic E Codes: Fall (17 sources) Fall; Translations: [Unspecified fall, initial encounter] 09-25-2023 Episodic Esophageal disorders (18 sources) Gastroesophageal reflux disease; Translations: [Gastro-esophageal reflux disease without esophagitis] 10-25-2019 Chronic Essential hypertension (20 sources) Essential hypertension; Translations: [Essential (primary) hypertension] Onset: 6 12-12-2015 Chronic Fluid and electrolyte disorders (1 source) Hyperkalemia; Translations: [Hyperkalemia] Episodic Fracture of upper limb (13 sources) Open fracture thumb distal phalanx, base; Translations: [Displaced fracture of distal phalanx of right thumb, initial encounter for open fracture] 03-05-2023 Episodic Genitourinary symptoms and ill-defined conditions (20 sources) Urinary incontinence; Translations: [Unspecified urinary incontinence] 02-22-2013 Chronic Genitourinary symptoms and ill-defined conditions (14 sources) Urinary symptoms ; Translations: [Unspecified symptoms and signs involving the genitourinary system] Onset: 5 Episodic Hypertension with complications and secondary hypertension (20 sources) Hypertensive renal disease; Translations: [Hypertensive chronic kidney disease with stage 1 through stage 4 chronic kidney disease, or unspecified chronic kidney disease] Onset: 1 04-16-2021 Chronic Inflammation; infection of eye (except that caused by tuberculosis or sexually transmitteddisease) (1 source) Hordeolum externum of upper eyelid of left eye; Translations: [Hordeolum externum left upper eyelid] 10-17-2023 Episodic Malaise and fatigue (16 sources) Asthenia; Translations: [Other malaise] 10-07-2023 Episodic Medical examination/evaluation (1 source) Encounter for preprocedural cardiovascular examination; Translations: [Encounter for preprocedural cardiovascular examination] Onset: 8 Episodic Menopausal disorders (20 sources) Atrophic vaginitis; Translations: [Postmenopausal atrophic vaginitis] 08-25-2009 Chronic Nutritional deficiencies (20 sources) Vitamin D deficiency; Translations: [Vitamin D deficiency, unspecified] Onset: 2 Chronic Open wounds of extremities (13 sources) Laceration of right thumb; Translations: [Laceration without foreign body of right thumb without damage to nail, initial encounter] 03-05-2023 Episodic Other aftercare (20 sources) Long-term current use of 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; Translations: [terminal gauger supervisor (current) use of 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s] Onset: 8 Episodic Other aftercare (10 sources) Patient encounter status; Translations: [Other terminal system operator (current) drug therapy] Episodic Other aftercare (11 sources) nursing home (current) use of 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s; Translations: [Long-term (current) use of 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s] Onset: 8 Episodic Other aftercare (1 source) Drug therapy finding; Translations: [terminal gauger supervisor (current) use of 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s] 09-23-2023 Episodic Other and ill-defined heart disease (10 sources) Diastolic dysfunction; Translations: [Other ill-defined heart diseases] 08-25-2024 Chronic Other and ill-defined heart disease (2 sources) Other ill-defined heart diseases; Translations: [Other ill-defined heart diseases] Onset: Chronic Other and unspecified benign neoplasm (2 sources) History of polyp of colon; Translations: [Personal history of colonic polyps] 09-01-2023 Episodic Other connective tissue disease (1 source) Spasm; Translations: [Other muscle spasm] Episodic Other connective tissue disease (10 sources) Pain in right lower limb; Translations: [Pain in right leg] 09-25-2023 Episodic Other connective tissue disease (7 sources) Pain in right leg; Translations: [Pain in limb] 09-25-2023 Episodic Other connective tissue disease (2 sources) Triggering of digit; Translations: [Trigger finger, left ring finger] 10-20-2024 Episodic Other diseases of bladder and urethra (17 sources) Overactive bladder; Translations: [Overactive bladder] 10-07-2023 Chronic Other diseases of bladder and urethra (4 sources) Overactive bladder; Translations: [Hypertonicity of bladder] Onset: 5 10-09-2023 Chronic Other gastrointestinal disorders (2 sources) Altered bowel function; Translations: [Change in bowel habit] 09-01-2023 Episodic Other gastrointestinal disorders (4 sources) Diarrhea; Translations: [Diarrhea, unspecified] 09-01-2023 Episodic Other gastrointestinal disorders (1 source) Constipation alternates with diarrhea; Translations: [Other specified symptoms and signs involving the digestive system and abdomen] 10-17-2023 Episodic Other non-traumatic joint disorders (4 sources) Morning stiffness - joint; Translations: [Stiffness of left hand, not elsewhere classified] 10-20-2024 Episodic Other nutritional; endocrine; and metabolic disorders (20 sources) Severe obesity; Translations: [Morbid (severe) obesity due to excess calories] Onset: 6 04-16-2021 Chronic Other nutritional; endocrine; and metabolic disorders (20 sources) Hypomagnesemia; Translations: [Hypomagnesemia] Onset: 2 Chronic Other nutritional; endocrine; and metabolic disorders (19 sources) Obesity; Translations: [Obesity, unspecified] 09-14-2018 Chronic Other nutritional; endocrine; and metabolic disorders (4 sources) Hypercalcemia; Translations: [Hypercalcemia] Chronic Other nutritional; endocrine; and metabolic disorders (3 sources) Obesity, unspecified; Translations: [Obesity, unspecified] 10-09-2023 Chronic Other nutritional; endocrine; and metabolic disorders (1 source) Body mass index 40+ - severely obese; Translations: [Body mass index (BMI) 40.0-44.9, adult] 04-19-2025 Chronic Other nutritional; endocrine; and metabolic disorders (3 sources) Body mass index (BMI) 40.0-44.9, adult; Translations: [Body mass index (BMI) 40.0-44.9, adult ([facility])] Onset: 4 Chronic Other nutritional; endocrine; and metabolic disorders (2 sources) Morbid (severe) obesity due to excess calories; Translations: [Class 3 severe obesity due to excess calories with body mass index (BMI) of 40.0 to 44.9 in adult, unspecified whether serious comorbidity present (HCC)] Onset: 4 Chronic Other nutritional; endocrine; and metabolic disorders (1 source) Hypomagnesemia; Translations: [Hypomagnesemia] Onset: 2 Chronic Other nutritional; endocrine; and metabolic disorders (1 source) Hypercalcemia; Translations: [Hypercalcemia] Onset: 4 Chronic Other nutritional; endocrine; and metabolic disorders (1 source) Abnormal weight loss; Translations: [Abnormal weight loss] 09-15-2023 Episodic Other screening for suspected conditions (not mental disorders or infectious disease) (13 sources) Serum creatinine raised; Translations: [Other specified abnormal findings of blood chemistry] Episodic Other skin disorders (20 sources) Localized scleroderma; Translations: [Localized scleroderma [morphea]] Onset: 2 07-20-2012 Chronic Other upper respiratory disease (20 sources) Chronic rhinitis; Translations: [Chronic rhinitis] Onset: 9 06-06-2009 Chronic Other upper respiratory disease (15 sources) Bleeding from nose; Translations: [Epistaxis] 02-09-2020 Episodic Other upper respiratory disease (15 sources) Anterior epistaxis; Translations: [Epistaxis] 10-14-2020 Episodic Other upper respiratory infections (2 sources) Chronic sinusitis; Translations: [Chronic sinusitis, unspecified] Chronic Phlebitis; thrombophlebitis and thromboembolism (3 sources) H/O: Deep vein thrombosis; Translations: [Personal history of other venous thrombosis and embolism] Episodic Pulmonary heart disease (20 sources) H/O: pulmonary embolus; Translations: [Personal history of pulmonary embolism] Onset: 7 Episodic Residual codes; unclassified (3 sources) Obstructive sleep apnea syndrome; Translations: [Obstructive sleep apnea (adult) (pediatric)] 07-27-2024 Chronic Residual codes; unclassified (1 source) Obstructive sleep apnea (adult) (pediatric); Translations: [PATRICIA (obstructive sleep apnea)] Onset: 5 Chronic Residual codes; unclassified (1 source) Postmenopausal state; Translations: [Asymptomatic menopausal state] Episodic Spondylosis; intervertebral disc disorders; other back problems (11 sources) Spasm of back muscles; Translations: [Muscle spasm of back] 03-08-2023 Episodic Sprains and strains (20 sources) Low back strain; Translations: [Strain of muscle, fascia and tendon of lower back, initial encounter] 03-08-2023 Episodic Superficial injury; contusion (20 sources) Contusion of knee; Translations: [Contusion of left knee, initial encounter] 03-05-2023 Episodic 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: right Thyroid disorders (20 sources) Acquired hypothyroidism; Translations: [Hypothyroidism, unspecified] Onset: 9 12-23-2018 Chronic Unclassified (1 source) Unknown / UNK(Unknown) Onset: 7 Unclassified (1 source) Class 3 severe obesity due to excess calories with body mass index (BMI) of 40.0 to 44.9 in adult, unspecified whether serious comorbidity present (HCC); Translations: [Class 3 severe obesity due to excess calories with body mass index (BMI) of 40.0 to 44.9 in adult, unspecified whether serious comorbidity present (HCC)] Onset: 4 Urinary tract infections (10 sources) Urinary tract infectious disease; Translations: [Urinary tract infection, site not specified] 07-12-2025 Episodic Past or Other Problems Problem Classification Problem Date Documented Da te Episodic/Chronic Diabetes mellitus without complication (20 sources) Type 2 diabetes mellitus without complications; Translations: [Diabetes mellitus without mention of complication, type II or unspecified type, not stated as uncontrolled] Onset: 4 Resolved: 8 10-09-2023 Chronic Diabetes mellitus without complication (20 sources) Impaired fasting glycemia; Translations: [Impaired fasting glucose] Onset: 5 Resolved: 5 12-06-2014 Episodic Disorders of teeth and jaw (2 sources) Temporomandibular joint disorder; Translations: [Unspecified temporomandibular joint disorder, unspecified side] Onset: 5 04-19-2025 Episodic Immunizations and screening for infectious disease (2 sources) Requires varicella vaccination; Translations: [Encounter for immunization] Onset: 4 Episodic Other aftercare (1 source) Encounter for therapeutic drug level monitoring; Translations: [Encounter for therapeutic drug monitoring] Onset: 4 Episodic Other connective tissue disease (20 sources) Bilateral plantar fasciitis; Translations: [Plantar fascial fibromatosis] Onset: 6 11-26-2021 Episodic Other connective tissue disease (1 source) Trigger finger, left ring finger; Translations: [Trigger ring finger of left hand] Onset: 4 Episodic Other gastrointestinal disorders (20 sources) Occult blood in stools; Translations: [Other fecal abnormalities] Onset: 3 Resolved: 3 08-23-2013 Episodic Other gastrointestinal disorders (1 source) Diarrhea, unspecified; Translations: [Diarrhea, unspecified type] Onset: 4 Episodic Other non-traumatic joint disorders (1 source) Stiffness of left hand, not elsewhere classified; Translations: [Morning joint stiffness of hand, left] Onset: 4 Episodic Other non-traumatic joint disorders (1 source) Stiffness of right hand, not elsewhere classified; Translations: [Morning joint stiffness of right hand] Onset: 4 Episodic Other upper respiratory disease (20 sources) Allergic rhinitis; Translations: [Allergic rhinitis, unspecified] Resolved: 9 06-06-2009 Chronic Screening and history of mental health and substance abuse codes (2 sources) Encounter for screening examination for other mental health and behavioral disorders; Translations: [Encounter for screening for depression] Onset: 5 Episodic Unclassified (12 sources) Abrasion, left knee, initial encounter 03-05-2023 Results Test Name Value Interpretation Reference Range Facility MR/[facility] 08-08-2025 MR/[facility] [address], [address] [place] [address] OFFICE VISIT Date of Service: 08/08/25 MR#: [id number] Acct: [id number] Name: YOBANI REID Rep #: [id number] 22 : 1945 Provider: Dr. Juana Boyd i, MD Age/Sex: 80/F [place] [facility] [place]: [place] Intake Vital Signs 07/12/25 09:59 08/04/25 14:46 08/08/25 13:18 Height 5 ft 4 in 5 ft 4 in 5 ft 4 in Weight: 242 lb 242 lb BMI 41.5 41.5 BP 125/67 H 154/76 H Blood Pressure Location Lt brachial Position Sitting Respiration 18 Pulse 57 L 68 Pulse Source Monitor Intake Visit Reasons: UDS results Chief Complaint: UDS results Oncology Physician Required: No Accompanied by: Self Is patient in pain?: No Allergies adhesive Allergy (Verified 08/08/25 13:17) Rash amoxicillin (Amoxicillin) Allergy (Verified 08/08/25 13:17) Rash ampicillin Allergy (Verified 08/08/25 13:17) Rash cephalexin monohydrate (From Keflex) Allergy (Verified 08/08/25 13:17) Rash lactose (lactose intolerant) Allergy (Verified 08/08/25 13:17) Abd cramps/diarrhea Penicillins Allergy (Verified 08/08/25 13:17) Rash Sulfa (Sulfonamide Antibiotics) Allergy (Verified 08/08/25 13:17) Rash Medications ???Medication ???Instructions ???Recorded ???Confirmed ???Type aspirin 81 mg chewable tablet 81 mg PO QHS hearth 05/10/1408/08 History levothyroxine 112 mcg tablet 112 mcg PO DAILY thyroid 05/10/14 08/08/25 History nitroglycerin 0.4 mg sublingual 0.4 mg sublingual Q5M PRN Chest 08/08/25 History tablet Pain fenofibrate 160 mg tablet 160 mg PO DAILY cholesterol 08/08/25 History magnesium oxide 400 mg (241.3 mg 800 mg PO BID suppliment 10/27/19 08/08/25 History magnesium) tablet atenolol 25 mg tablet 25 mg PO DAILY blood pressure 07/0108/08/25 History atorvastatin 40 mg tablet 40 mg PO QHS cholestorol 07/10/20 08/08/25 History hydrocortisone 2.5 % topical cream 1 applic topical BID PRN Itching 07/10/20 08/08/25 History isosorbide mononitrate 30 mg 30 mg PO DAILY heart #90 tabs 08/0108/08/25 Rx tablet,extended release 24 hr fosinopril 40 mg tablet 40 mg PO BID this is a dose 08/08/25 Rx increase #60 tabs warfarin 2.5 mg tablet 2.5 mg PO .TUTHSU 08/25/24 5 History warfarin 5 mg tablet 5 mg PO MOWEFRSA blood thinner 08/08/25 History potassium chloride 20 mEq 20 meq PO QDAY #90 tabs 02/09/25 0 08/08/25 Rx tablet,extended release furosemide 40 mg tablet 40 mg PO Q OTHER DAY #90 tabs 01/2908/08/25 Rx estradiol 0.01% (0.1 mg/gram) 1 g vaginal 3XW 08/04/25 08/08/25 History vaginal cream Have you fallen in the past year?: No PFSH Medical History Urinary tract infection Nocturia Urge incontinence Overactive bladder Obstructive sleep apnea Debility Wears glasses Post-menopausal Thyroid disease Diabetes Arthritis Bladder disease High cholesterol History of ulceration Former smoker Leg cramps History of echocardiogram History of stress test Cardiology follow-up encounter Hypertension Preop cardiovascular exam nursing home current use of 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 RBBB (right bundle branch block) Hypothyroidism GERD (gastroesophageal reflux disease) History of pulmonary embolism ( 08/2017) Presence 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 (10/25/19) Atherosclerotic heart disease of [place] coronary artery without angina pectoris Mixed hyperlipidemia Essential hypertension Incisional hernia, without obstruction or gangrene History of gastric ulcer Obesity DM2 (diabetes mellitus, type 2) Pulmonary embolism (08/2017) Surgical History History of cardiac catheterization History of appendectomy Presence of coronary angioplasty implant and graft ( 10/06/09) H/O hernia repair History of heart artery stent S/P cardiac catheterization S/P trigger finger release S/P hysterectomy S/P carpal tunnel release S/P tonsillectomy S/P colonoscopy ( 05/2013) Family History Father CAD (coronary artery disease) Mother CVA (cerebral vascular accident) Hypertension Social History household members: none housing: house number of children: 0 current occupational status: retired pets and animals: No Smoking Status: Former smoker how long ago did patient quit smokin yrs alcohol intake: current alcohol intake frequency: holidays/special occasions only Alcohol type: wine substance use type: does not use caffeine: No HPI HPI Urology Chief Complaint: UDS results Details: YOBANI REID, is a 80 F. She is here for the results of her (more content not included)... Normal [facility] Cardiology Visit Reporton Cardiology Visit Report [facility] [address] [place] [address] OFFICE VISIT Date of Service: 08/04/25 MR#: [id number] Acct: [id number] Name: YOBANI REID Rep #: [id number] : 1945 Provider: Dr. Augustin Moreira MD Age/Sex: 80/F Location: [facility] Status: Signed HPI HPI History of Present Illness Details: This pleasant lady with history significant for coronary artery disease with drug-eluting stents, pulmonary embolism, hypertension, dyslipidemia, obesity and diabetes mellitus is here for follow-up visit. Denies any complaints today. Intake Vital Signs 02/09/25 13:54 07/26/25 11:43 08/04/25 14:46 Height 5 ft 4 in 5 ft 4 in 5 ft 4 in Weight: 242 lb BMI 41.5 BP 125/67 H Blood Pressure Location Lt brachial Position Sitting Respiration 18 Pulse 57 L Pulse Source Monitor Intake Visit Reasons: 6 M FU Allergies adhesive Allergy (Verified 08/04/25 14:55) Rash amoxicillin (Amoxicillin) Allergy (Verified 08/04/25 14:55) Rash ampicillin Allergy (Verified 08/04/25 14:55) Rash cephalexin monohydrate (From Keflex) Allergy (Verified 08/04/25 14:55) Rash lactose (lactose intolerant) Allergy (Verified 08/04/25 14:55) Abd cramps/diarrhea Penicillins Allergy (Verified 08/04/25 14:55) Rash Sulfa (Sulfonamide Antibiotics) Allergy (Verified 08/04/25 14:55) Rash Medications ???Medication ???Instructions ???Recorded ???Confirmed ???Type aspirin 81 mg chewable tablet 81 mg PO QHS hearth 05/10/1407/26 History levothyroxine 112 mcg tablet 112 mcg PO DAILY thyroid 05/10/14 07/26/25 History nitroglycerin 0.4 mg sublingual 0.4 mg sublingual Q5M PRN Chest 07/26/25 History tablet Pain fenofibrate 160 mg tablet 160 mg PO DAILY cholesterol 07/26/25 History magnesium oxide 400 mg (241.3 mg 800 mg PO BID suppliment 10/27/19 07/26/25 History magnesium) tablet atenolol 25 mg tablet 25 mg PO DAILY blood pressure 07/0107/26/25 History atorvastatin 40 mg tablet 40 mg PO QHS cholestorol 07/10/20 07/26/25 History hydrocortisone 2.5 % topical cream 1 applic topical BID PRN Itching 07/10/20 07/26/25 History isosorbide mononitrate 30 mg 30 mg PO DAILY heart #90 tabs 08/0107/26/25 Rx tablet,extended release 24 hr fosinopril 40 mg tablet 40 mg PO BID this is a dose 07/26/25 Rx increase #60 tabs warfarin 2.5 mg tablet 2.5 mg PO .TUTHSU 08/25/24 5 History warfarin 5 mg tablet 5 mg PO MOWEFRSA blood thinner 07/26/25 History potassium chloride 20 mEq 20 meq PO QDAY #90 tabs 02/09/25 0 07/26/25 Rx tablet,extended release furosemide 40 mg tablet 40 mg PO Q OTHER DAY #90 tabs 01/2907/26/25 Rx estradiol 0.01% (0.1 mg/gram) 1 g vaginal 3XW 08/04/25 08/04/25 History vaginal cream Have you fallen in the past year?: No PFSH Medical History Urinary tract infection Nocturia Urge incontinence Overactive bladder Obstructive sleep apnea Debility Wears glasses Post-menopausal Thyroid disease Diabetes Arthritis Bladder disease High cholesterol History of ulceration Former smoker Leg cramps History of echocardiogram History of stress test Cardiology follow-up encounter Hypertension Preop cardiovascular exam nursing home current use of 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 RBBB (right bundle branch block) Hypothyroidism GERD (gastroesophageal reflux disease) History of pulmonary embolism ( 08/2017) Presence 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 (10/25/19) Atherosclerotic heart disease of [place] coronary artery without angina pectoris Mixed hyperlipidemia Essential hypertension Incisional hernia, without obstruction or gangrene History of gastric ulcer Obesity DM2 (diabetes mellitus, type 2) Pulmonary embolism (08/2017) Surgical History History of cardiac catheterization History of appendectomy Presence of coronary angioplasty implant and graft ( 10/06/09) H/O hernia repair History of heart artery stent S/P cardiac catheterization S/P trigger finger release S/P hysterectomy S/P carpal tunnel release S/P tonsillectomy S/P colonoscopy ( 05/2013) Family History Father CAD (coronary artery disease) Mother CVA (cerebral vascular accident) Hypertension Social History household members: none housing: house number of children: 0 current occupational status: retired pets and animals: No Smoking Status: Former smoker how long ago did patient quit smokin yrs alcohol intake: current alcohol intake frequency: holidays/special occasions only Alcohol type: wine sub (more content not included)... Normal [facility] Anion gap in Serum or Plasma Ordered By: Augustin Moreira on 07-27-2025 Anion gap [Moles/Vol] 10 mmol/L -15 [facility] BUN/creatinine ratioOrdered By: Augustin Moreira on 07-27-2025 Urea nitrogen/Creatinine [Mass ratio] 18.7 mg/mg 10- [facility] Bilirubin, totalOrdered By: Augustin Moreira on 07-27-2025 Bilirubin [Mass/Vol] 0.67 mg/dL 0.00-1.30 [facility] Calculated very low density lipoprotein (VLDL) cholesterol measurementOrdered By: Augustin Moreira on 07-27-2025 Calculated very low density lipoprotein (VLDL) cholesterol measurement 16 mg/dL -40 [facility] Carbon dioxide, total [Moles /volume] in Central venous bloodOrdered By: Augustin Moreira on 07-27-2025 CO2 [Moles/Vol] 23.8 mmol/L 21.0-32.0 [facility] Chloride assayOrdered By: Jame Moreira on 07-27-2025 Chloride [Moles/Vol] 106 mmol/L 98-108 [facility] Comprehensive Metabolic Prof ilon 07-27-2025 Albumin [Mass/Vol] 4.2 g/dL Normal 3.4-4.8 [facility] 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: Performed By: #### L 500.4050, L500.4100 #### [facility] [address] [place], [address] Albumin/Globulin [Mass ratio] 1.2 {ratio} Normal 0.9-2.4 [facility] 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: Performed By: #### L 500.4050, L500.4100 #### [facility] [address] [place], [address] ALK PHOS 50 U/L Normal 35-104 [facility] 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: Performed By: #### L 500.4050, L500.4100 #### [facility] [address] [place], [address] ALT [Catalytic activity/Vol] 17 U/L Normal <=34 [facility] 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: Performed By: #### L 500.4050, L500.4100 #### [facility] [address] [place], [address] AST [Catalytic activity/Vol] 21 U/L Normal <=31 [facility] 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: Performed By: #### L 500.4050, L500.4100 #### [facility] [address] [place], [address] Bilirubin [Mass/Vol] 0.67 mg/dL Normal 0.00-1.30 [facility] 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: Performed By: #### L 500.4050, L500.4100 #### [facility] [address] [place], [address] BUN/CRE 18.7 RATIO Normal 10-20 [facility] 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: Performed By: #### L 500.4050, L500.4100 #### [facility] [address] [place], [address] Calcium [Mass/Vol] 10.4 mg/dL Normal 7.6-11.0 [facility] 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: Performed By: #### L 500.4050, L500.4100 #### [facility] [address] [place], [address] Chloride [Moles/Vol] 106 mmol/L Normal 98-108 [facility] 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: Performed By: #### L 500.4050, L500.4100 #### [facility] [address] [place], [address] CO2 [Moles/Vol] 23.8 mmol/L Normal 21.0-32.0 [facility] 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: Performed By: #### L 500.4050, L500.4100 #### [facility] [address] [place], [address] Creatinine [Mass/Vol] 1.19 mg/dL Normal 0.70-1.20 [facility] 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: Performed By: #### L 500.4050, L500.4100 #### [facility] [address] [place], [address] GAP 10 Normal 5-15 [facility] 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: Performed By: #### L 500.4050, L500.4100 #### [facility] [address] [place], [address] GFR/1.73 sq M.predicted among non-blacks MDRD (S/P/Bld) [Vol rate/Area] 47 mL/min/{1.73_m2} Low >60 [facility] 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: Result Comment: mL/m in/1.73m2 CKD-EPI Creatinine Equation (2020) Performed By: #### L 500.4050, L500.4100 #### [facility] [address] [place], [address] Globulin (S) [Mass/Vol] 3.5 g/dL Normal 2.2-4.2 [facility] 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: Performed By: #### L 500.4050, L500.4100 #### [facility] [address] [place], [address] Glucose [Mass/Vol] 111 mg/dL High 70-99 [facility] 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: Performed By: #### L 500.4050, L500.4100 #### [facility] [address] [place], [address] Potassium [Moles/Vol] 4.8 mmol/L Normal 3.3-5.1 [facility] 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: Performed By: #### L 500.4050, L500.4100 #### [facility] [address] [place], [address] Sodium [Moles/Vol] 140 mmol/L Normal 133-145 [facility] 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: Performed By: #### L 500.4050, L500.4100 #### [facility] [address] [place], [address] T PROT 7.7 g/dL Normal 5.9-8.4 [facility] 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: Performed By: #### L 500.4050, L500.4100 #### [facility] [address] [place], [address] Urea nitrogen [Mass/Vol] 22 mg/dL High 4-19 [facility] 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: Performed By: #### L 500.4050, L500.4100 #### [facility] [address] [place], [address] Glomerular filtration rate ( GFR) estimation/1.73 sq m using serum, plasma, or whole bOrdered By: Augustin Moreira on 07-27-2025 GFR/1.73 sq M.predicted among non-blacks MDRD (S/P/Bld) [Vol rate/Area] 47 mL/min/{1.73_m2} Low >60 [facility] 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: mL/min/1.73m2 CKD-EP I Creatinine Equation (2020) LDL calc ser/plasOrdered By: Augustin Moreira on 07-27-2025 Cholesterol in LDL [Mass/Vol] 86 mg/dL [facility] 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: Filihayilz=035-384 m g/dL & Higher Iyao=393 mg/dL or greaterFriedwald Equation for LDL-C Laboratory - Chemistry and C hemistry - challengeOrdered By: Augustin Moreira on 07-27-2025 AST [Catalytic activity/Vol] 21 U/L <32 [facility] Lipid Profileon 07-27-2025 CHOL:HDL 2.79 Normal [facility] 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: Performed By: #### L 500.4050, L500.4100 #### [facility] [address] [place], [address] Cholesterol [Mass/Vol] 159 mg/dL Normal <=200 [facility] 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: Result Comment: Chol esterol level, Desirable <200 mg/dL Borderline high cholesterol 200-239 mg/dL High cholesterol >=240 mg/dL Recommendations of the NCEP Adult Treatment Panel for the following risk-cutoff thresholds for the [place] population. Performed By: #### L 500.4050, L500.4100 #### [facility] [address] [place], [address] Cholesterol in HDL [Mass/Vol] 57 mg/dL Normal [facility] 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: Result Comment: Sandra onal Cholesterol Education Program (NCEP) guidelines: <40 mg/dL: Low HDL-cholesterol (major risk factor for CHD) >= 60 mg/dL: High HDL-cholesterol (negative risk factor for CHD) HDL-cholesterol is affected by a number of factors, e.g. smoking, exercise, hormones, sex and age. Performed By: #### L 500.4050, L500.4100 #### [facility] [address] [place], [address] Cholesterol in LDL [Mass/Vol] 86 mg/dL Normal [facility] 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: Result Comment: Bord ijtzeb=370-862 mg/dL Higher Jmdh=562 mg/dL or greater Friedwald Equation for LDL-C Performed By: #### L 500.4050, L500.4100 #### [facility] [address] [place], [address] Cholesterol in VLDL [Mass/Vol] 16 mg/dL Normal 5-40 [facility] 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: Performed By: #### L 500.4050, L500.4100 #### [facility] [address] [place], [address] Triglyceride [Mass/Vol] 78 mg/dL Normal [facility] 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: Result Comment: The drugs N-Acetylcysteine and Metamizole may falsely depress this assay. Normal range: <150 mg/dL Borderline High: 150-199 mg/dL High: 200-499 mg/dL Very High: >500 mg/dL Performed By: #### L 500.4050, L500.4100 #### [facility] [address] [place], [address] Potassium measurement (mass/ volume)Ordered By: Augustin Moreira on 07-27-2025 Potassium (Unsp spec) [Mass/Vol] 4.8 mmol/L 3.3-5.1 [facility] Screening total cholesterol/ high density lipoprotein (HDL) cholesterol ratioOrdered By: Augustin Moreira on 07-27-2025 Cholesterol.total/C holesterol in HDL [Mass ratio] 2.79 {ratio} [facility] Serum creatinine measurement (mass/volume)Ordered By: Augustin Moreira on 07-27-2025 Creatinine [Mass/Vol] 1.19 mg/dL 0.70-1.20 [facility] Serum globulin measurementOr dered By: Augustin Moreira on 07-27-2025 Globulin (S) [Mass/Vol] 3.5 g/dL 2.2-4.2 [facility] Serum glucose measurement (m ass/volume)Ordered By: Augustin Moreira on 07-27-2025 Glucose [Mass/Vol] 111 mg/dL High 70-99 [facility] Serum or plasma alanine carrizales otransferase (ALT) measurementOrdered By: Augustin Moreira on 07-27-2025 ALT [Catalytic activity/Vol] 17 U/L <35 [facility] Serum or plasma albumin tiffanie urement (mass/volume)Ordered By: Augustin Moreira on 07-27-2025 Albumin [Mass/Vol] 4.2 g/dL 3.4-4.8 [facility] Serum or plasma albumin/glob ulin mass ratioOrdered By: Augustin Moreira on 07-27-2025 Albumin/Globulin [Mass ratio] 1.2 {ratio} 0.9-2.4 [facility] Serum or plasma alkaline eligio sphatase measurementOrdered By: Augustin Moreira on 07-27-2025 ALP [Catalytic activity/Vol] 50 U/L 35-104 [facility] Serum or plasma calcium tiffanie urement (mass/volume)Ordered By: Augustin Moreira on 07-27-2025 Calcium [Mass/Vol] 10.4 mg/dL 7.6-11.0 [facility] Serum or plasma cholesterol in HDL measurement (mass/volume)Ordered By: Augustin Moreira on 07-27-2025 Cholesterol in HDL [Mass/Vol] 57 mg/dL >40 [facility] 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: National Cholesterol Education Program (NCEP) guidelines:<40 mg/dL: Low HDL-cholesterol (major risk factor for CHD)>= 60 mg/dL: High HDL-cholesterol (negative risk factor for CHD)HDL-cholesterol is affected by a number of factors, e.g. smoking, exercise, hormones, sex and age. Serum or plasma cholesterol measurement (mass/volume)Ordered By: Augustin Moreira on 07-27-2025 Cholesterol [Mass/Vol] 159 mg/dL <201 [facility] 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: Cholesterol level, D esirable <200 mg/dLBorderline high cholesterol 200-239 mg/dLHigh cholesterol >=240 mg/dLRecommendations of the NCEP Adult Treatment Panel for the following risk-cutoff thresholds for the [place] population. Serum or plasma urea nitroge n measurement (mass/volume)Ordered By: Augustin Moreira on 07-27-2025 Urea nitrogen [Mass/Vol] 22 mg/dL High 4-19 [facility] Sodium levelOrdered By: Zafar Moreira on 07-27-2025 Sodium [Moles/Vol] 140 mmol/L 133-145 [facility] Total proteinOrdered By: Alejandra Moreira on 07-27-2025 Protein [Mass/Vol] 7.7 g/dL 5.9-8.4 [facility] Triglycerides measurementOrd ered By: Augustin Moreira on 07-27-2025 Triglyceride [Mass/Vol] 78 mg/dL <199 [facility] 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: The drugs N-Acetylcy steine and Metamizole may falsely depress this assay. Normal range: <150 mg/dLBorderline High: 150-199 mg/dLHigh: 200-499 mg/dLVery High: >500 mg/dL /Keny 07-26-2025 /[facility] [address], [address] [place] [id number] OFFICE VISIT Date of Service: 07/26/25 MR#: [id number] Acct: [id number] Name: YOBANI REID Rep #: [id number] : 1945 Provider: Dr. Juana Boyd i, MD Age/Sex: 80/F [place] [facility] [place]: Signed Intake Vital Signs 07/12/25 09:59 07/26/25 11:43 Height 5 ft 4 in 5 ft 4 in Weight: 248 lb BMI 42.5 BP 122/78 H Respiration 68 H Temp 98.2 F Intake Visit Reasons: 1HR UDS Chief Complaint: UDS Oncology Physician Required: No Is patient in pain?: No Allergies adhesive Allergy (Verified 08/08/25 13:17) Rash amoxicillin (Amoxicillin) Allergy (Verified 08/08/25 13:17) Rash ampicillin Allergy (Verified 08/08/25 13:17) Rash cephalexin monohydrate (From Keflex) Allergy (Verified 08/08/25 13:17) Rash lactose (lactose intolerant) Allergy (Verified 08/08/25 13:17) Abd cramps/diarrhea Penicillins Allergy (Verified 08/08/25 13:17) Rash Sulfa (Sulfonamide Antibiotics) Allergy (Verified 08/08/25 13:17) Rash Medications ???Medication ???Instructions ???Recorded ???Confirmed ???Type aspirin 81 mg chewable tablet 81 mg PO QHS hearth 05/10/1408/08 History levothyroxine 112 mcg tablet 112 mcg PO DAILY thyroid 05/10/14 08/08/25 History nitroglycerin 0.4 mg sublingual 0.4 mg sublingual Q5M PRN Chest 08/08/25 History tablet Pain fenofibrate 160 mg tablet 160 mg PO DAILY cholesterol 08/08/25 History magnesium oxide 400 mg (241.3 mg 800 mg PO BID suppliment 10/27/19 08/08/25 History magnesium) tablet atenolol 25 mg tablet 25 mg PO DAILY blood pressure 07/0108/08/25 History atorvastatin 40 mg tablet 40 mg PO QHS cholestorol 07/10/20 08/08/25 History hydrocortisone 2.5 % topical cream 1 applic topical BID PRN Itching 07/10/20 08/08/25 History isosorbide mononitrate 30 mg 30 mg PO DAILY heart #90 tabs 08/0108/08/25 Rx tablet,extended release 24 hr fosinopril 40 mg tablet 40 mg PO BID this is a dose 08/08/25 Rx increase #60 tabs warfarin 2.5 mg tablet 2.5 mg PO .TUTHSU 08/25/24 5 History warfarin 5 mg tablet 5 mg PO MOWEFRSA blood thinner 08/08/25 History potassium chloride 20 mEq 20 meq PO QDAY #90 tabs 02/09/25 0 08/08/25 Rx tablet,extended release furosemide 40 mg tablet 40 mg PO Q OTHER DAY #90 tabs 01/2908/08/25 Rx estradiol 0.01% (0.1 mg/gram) 1 g vaginal 3XW 08/04/25 08/08/25 History vaginal cream Have you fallen in the past year?: No PFSH Medical History Urinary tract infection Nocturia Urge incontinence Overactive bladder Obstructive sleep apnea Debility Wears glasses Post-menopausal Thyroid disease Diabetes Arthritis Bladder disease High cholesterol History of ulceration Former smoker Leg cramps History of echocardiogram History of stress test Cardiology follow-up encounter Hypertension 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 RBBB (right bundle branch block) Hypothyroidism GERD (gastroesophageal reflux disease) History of pulmonary embolism ( 08/2017) Presence 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 (10/25/19) Atherosclerotic heart disease of [place] coronary artery without angina pectoris Mixed hyperlipidemia Essential hypertension Incisional hernia, without obstruction or gangrene History of gastric ulcer Obesity DM2 (diabetes mellitus, type 2) Pulmonary embolism (08/2017) Surgical History History of cardiac catheterization History of appendectomy Presence of coronary angioplasty implant and graft ( 10/06/09) H/O hernia repair History of heart artery stent S/P cardiac catheterization S/P trigger finger release S/P hysterectomy S/P carpal tunnel release S/P tonsillectomy S/P colonoscopy ( 05/2013) Family History Father CAD (coronary artery disease) Mother CVA (cerebral vascular accident) Hypertension Social History household members: none housing: house number of children: 0 current occupational status: retired pets and animals: No Smoking Status: Former smoker how long ago did patient quit smokin yrs alcohol intake: current alcohol intake frequency: holidays/special occasions only Alcohol type: wine substance use type: does not use caffeine: No HPI HPI Urology Chief Complaint: UDS Details: YOBANI REID, is a 80 F. She is here for urodynamics testing for further evaluation of her bladder and pelvic floor function. She has no sign of acute urinary tract infection today. She denies hematuria. Questions regarding the proce (more content not included)... Normal [facility] - Chemistry and C hemistry - challengeOrdered By: Juana Peters on 07-12-2025 Bilirubin Ql (U) Negative [facility] Glucose Ql (U) Negative [facility] Ketones Ql (U) Negative [facility] pH (U) 6 [pH] [facility] Specific gravity (U) [Rel density] 1.010 [facility] Urobilinogen (U) [Mass/Vol] Negative [facility] - Hematology and Cell countsOrdered By: Juana Peters on 07-12-2025 Hemoglobin Ql (U) Negative [facility] - UrinalysisOrder ed By: Juana Peters on 07-12-2025 Nitrite Ql (U) Positive [facility] Protein Ql (U) Negative [facility] MR/[facility] 07-12-2025 MR/[facility] [address], [address] [place] [address] OFFICE VISIT Date of Service: 07/12/25 MR#: [id number] Acct: [id number] Name: YOBANI REID Rep #: [id number] : 1945 Provider: Dr. Juana Boyd i, MD Age/Sex: 80/F [place] [facility] [place]: Signed Intake Vital Signs 02/09/25 13:54 07/12/25 09:59 Height 5 ft 4 in 5 ft 4 in Weight: 248 lb BMI 42.5 BP 143/75 H Pulse 59 L Intake Visit Reasons: MED F/U Chief Complaint: solifenicin medication follow up Oncology Physician Required: No Accompanied by: Self Is patient in pain?: No Allergies adhesive Allergy (Verified 07/12/25 09:57) Rash amoxicillin (Amoxicillin) Allergy (Verified 07/12/25 09:57) Rash ampicillin Allergy (Verified 07/12/25 09:57) Rash cephalexin monohydrate (From Keflex) Allergy (Verified 07/12/25 09:57) Rash lactose (lactose intolerant) Allergy (Verified 07/12/25 09:57) Abd cramps/diarrhea Penicillins Allergy (Verified 07/12/25 09:57) Rash Sulfa (Sulfonamide Antibiotics) Allergy (Verified 07/12/25 09:57) Rash Medications ???Medication ???Instructions ???Recorded ???Confirmed ???Type aspirin 81 mg chewable tablet 81 mg PO QHS hearth 05/10/1407/12 History levothyroxine 112 mcg tablet 112 mcg PO DAILY thyroid 05/10/14 07/12/25 History nitroglycerin 0.4 mg sublingual 0.4 mg sublingual Q5M PRN Chest 07/12/25 History tablet Pain fenofibrate 160 mg tablet 160 mg PO DAILY cholesterol 07/12/25 History magnesium oxide 400 mg (241.3 mg 800 mg PO BID suppliment 10/27/19 07/12/25 History magnesium) tablet atenolol 25 mg tablet 25 mg PO DAILY blood pressure 07/0107/12/25 History atorvastatin 40 mg tablet 40 mg PO QHS cholestorol 07/10/20 07/12/25 History hydrocortisone 2.5 % topical cream 1 applic topical BID PRN Itching 07/10/20 07/12/25 History isosorbide mononitrate 30 mg 30 mg PO DAILY heart #90 tabs 08/0107/12/25 Rx tablet,extended release 24 hr solifenacin 5 mg tablet 5 mg PO DAILY bladder 07/18/2211/24 History fosinopril 40 mg tablet 40 mg PO BID this is a dose 07/12/25 Rx increase #60 tabs warfarin 2.5 mg tablet 2.5 mg PO .TUTHSU 08/25/24 5 History warfarin 5 mg tablet 5 mg PO MOWEFRSA blood thinner 07/12/25 History potassium chloride 20 mEq 20 meq PO QDAY #90 tabs 02/09/25 0 07/12/25 Rx tablet,extended release furosemide 40 mg tablet 40 mg PO Q OTHER DAY #90 tabs 01/2907/12/25 Rx Have you fallen in the past year?: No Nurse's Note: bladder scan PVR 25cc PFS Medical History Urinary tract infection Nocturia Urge incontinence Overactive bladder Obstructive sleep apnea Debility Wears glasses Post-menopausal Thyroid disease Diabetes Arthritis Bladder disease High cholesterol History of ulceration Former smoker Leg cramps History of echocardiogram History of stress test Cardiology follow-up encounter Hypertension 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 RBBB (right bundle branch block) Hypothyroidism GERD (gastroesophageal reflux disease) History of pulmonary embolism ( 08/2017) Presence 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 (10/25/19) Atherosclerotic heart disease of [place] coronary artery without angina pectoris Mixed hyperlipidemia Essential hypertension Incisional hernia, without obstruction or gangrene History of gastric ulcer Obesity DM2 (diabetes mellitus, type 2) Pulmonary embolism (08/2017) Surgical History History of cardiac catheterization History of appendectomy Presence of coronary angioplasty implant and graft ( 10/06/09) H/O hernia repair History of heart artery stent S/P cardiac catheterization S/P trigger finger release S/P hysterectomy S/P carpal tunnel release S/P tonsillectomy S/P colonoscopy ( 05/2013) Family History Father CAD (coronary artery disease) Mother CVA (cerebral vascular accident) Hypertension Social History household members: none housing: house number of children: 0 current occupational status: retired pets and animals: No Smoking Status: Former smoker how long ago did patient quit smokin yrs alcohol intake: current alcohol intake frequency: holidays/special occasions only Alcohol type: wine substance use type: does not use caffeine: No HPI HPI Urology Chief Complaint: solifenicin medication follow up Details: YOBANI REID, is a 80 F. She is here for medication follow up. She has been taking solifenacin 10mg daily. She is not having side effects from the medi (more content not included)... Normal [facility] No Panel InformationOrdered By: Juana Peters on 07-12-2025 Urine Leukocytes Positive [facility] Urine Non-Hemolyzed Blood Negative [facility] 25(OH)D3 [facility] 2024 25-hydroxyvitamin D3 [Mass/Vol] 32.0 ng/mL Normal 31.0-80.0 [facility] 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: Order Comment: Speci men Type: BLOOD SPECIMENOrdering Facility: [facility] Address: [address] [place] [address] Performed By: #### 1 989-3 ####[facility] LABCLIA [id number] [place] [address] [place] ALBUMIN/CREATININE RATIO, UR INEon 04-19-2025 Albumin DL <= 20 mg/L (U) [Mass/Vol] mg/dL Normal [facility] 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: Order Comment: Speci men Type: URINE SPECIMENOrdering Facility: [facility] Address: [address] [place] [address] Performed By: #### U ACR ####[facility] LABCLIA [id number] [place] [address] [place] Albumin/Creatinine (U) [Mass ratio] <19 Normal <30 [facility] 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: Order Comment: Speci men Type: URINE SPECIMENOrdering Facility: [facility] Address: [address] [place] [address] Result Comment: Adul t Male and Female Nephrotic Criteria: <30 mg/g is considered normal to mildly increased 30-300 mg/g is considered moderately increased >300 mg/g is considered severely increased KDIGO. (2013). KDIGO 2012 Clinical Practice Guideline for the Evaluation and Management of Chronic Kidney Disease. Official Journal of the International Society of Nephrology, 3(1), 1-150. Performed By: #### U ACR ####[facility] LABCLIA [id number] [place] [address] [place] Creatinine (U) [Mass/Vol] 61.8 mg/dL Normal 20.0-300.0 [facility] 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: Order Comment: Speci men Type: URINE SPECIMENOrdering Facility: [facility] Address: [address] [place] [address] Performed By: #### U ACR ####[facility]CLIA [id number] [facility] [address], [facility] [place] CBC W Auto Differential pane l (Bld)on 04-19-2025 Basophils (Bld) [#/Vol] 0.06 10*3/uL Normal <0.11 [facility] 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: Order Comment: Speci men Type: BLOOD SPECIMENOrdering Facility: [facility] Address: [address] [place] [address] Performed By: #### 5 7021-8 ####[facility] LABCLIA [id number] [address], [place] [address] [place] Basophils/100 WBC (Bld) 0.8 % Normal [facility] 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: Order Comment: Speci men Type: BLOOD SPECIMENOrdering Facility: [facility] Address: [address] [place] [address] Performed By: #### 5 7021-8 ####[facility] LABCLIA [id number] [address], [place] [address] [place] Differential cell count method Nom (Bld) Auto Normal [facility] 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: Order Comment: Speci men Type: BLOOD SPECIMENOrdering Facility: [facility] Address: [address] [place] [address] Performed By: #### 5 7021-8 ####[facility]CLIA [id number] [address], [facility] [place] Eosinophils (Bld) [#/Vol] 0.25 10*3/uL Normal <0.46 [facility] 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: Order Comment: Speci men Type: BLOOD SPECIMENOrdering Facility: [facility] Address: [address] [place] [address] Performed By: #### 5 7021-8 ####[facility]CLIA [id number] [address], [facility]95 [place] Eosinophils/100 WBC (Bld) 3.3 % Normal [facility] 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: Order Comment: Speci men Type: BLOOD SPECIMENOrdering Facility: [facility] Address: [address] [place] [address] Performed By: #### 5 7021-8 ####[facility] LABIA [id number] [place] [address] [place] Erythrocyte distribution width (RBC) [Ratio] 13.8 % Normal 11.5-15.0 [facility] 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: Order Comment: Speci men Type: BLOOD SPECIMENOrdering Facility: [facility] Address: [address] [place] [address] Performed By: #### 5 7021-8 ####[facility] LABIA [id number] [place] [address] [place] Hematocrit (Bld) [Volume fraction] 41.7 % Normal 36.0-46.0 [facility] 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: Order Comment: Speci men Type: BLOOD SPECIMENOrdering Facility: [facility] Address: [address] [place] [address] Performed By: #### 5 7021-8 ####[facility] LABIA [id number] [place] [address] [place] Hemoglobin (Bld) [Mass/Vol] 13.1 g/dL Normal 11.5-15.5 [facility] 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: Order Comment: Speci men Type: BLOOD SPECIMENOrdering Facility: [facility] Address: [address] [place] [address] Performed By: #### 5 7021-8 ####[facility] LABIA [id number] [place] [address] [place] Immature granulocytes (Bld) [#/Vol] 0.03 10*3/uL Normal <0.10 [facility] 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: Order Comment: Speci men Type: BLOOD SPECIMENOrdering Facility: [facility] Address: [address] [place] [address] Performed By: #### 5 7021-8 ####[facility] LABCLIA [id number] [place] [address] [place] Immature granulocytes/100 WBC (Bld) 0.4 % Normal [facility] 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: Order Comment: Speci men Type: BLOOD SPECIMENOrdering Facility: [facility] Address: [address] [place] [address] Performed By: #### 5 7021-8 ####[facility] LABIA [id number] [place] [address] [place] Lymphocytes (Bld) [#/Vol] 1.76 10*3/uL Normal 1.00-4.00 [facility] 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: Order Comment: Speci men Type: BLOOD SPECIMENOrdering Facility: [facility] Address: [address] [place] [address] Performed By: #### 5 7021-8 ####[facility] LABIA [id number] [place] [address] [place] Lymphocytes/100 WBC (Bld) 23.5 % Normal [facility] 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: Order Comment: Speci men Type: BLOOD SPECIMENOrdering Facility: [facility] Address: [address] [place] [address] Performed By: #### 5 7021-8 ####[facility] LABIA [id number] [place] [address] [place] MCH (RBC) [Entitic mass] 28.0 pg Normal 26.0-34.0 [facility] 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: Order Comment: Speci men Type: BLOOD SPECIMENOrdering Facility: [facility] Address: [address] [place] [address] Performed By: #### 5 7021-8 ####[facility] LABIA [id number] [place] [address] [place] MCHC (RBC) [Mass/Vol] 31.4 g/dL Normal 30.5-36.0 [facility] 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: Order Comment: Speci men Type: BLOOD SPECIMENOrdering Facility: [facility] Address: [address] [place] [address] Performed By: #### 5 7021-8 ####[facility] LABCLIA [id number] [place] [address] [place] MCV (RBC) [Entitic vol] 89.1 fL Normal 80.0-100.0 [facility] 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: Order Comment: Speci men Type: BLOOD SPECIMENOrdering Facility: [facility] Address: [address] [place] [address] Performed By: #### 5 7021-8 ####[facility] LABIA [id number] [place] [address] [place] Monocytes (Bld) [#/Vol] 0.71 10*3/uL Normal <0.87 [facility] 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: Order Comment: Speci men Type: BLOOD SPECIMENOrdering Facility: [facility] Address: [address] [place] [address] Performed By: #### 5 7021-8 ####[facility] LABIA [id number] [place] [address] [place] Monocytes/100 WBC (Bld) 9.5 % Normal [facility] 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: Order Comment: Speci men Type: BLOOD SPECIMENOrdering Facility: [facility] Address: [address] [place] [address] Performed By: #### 5 7021-8 ####[facility] LABIA [id number] [place] [id number] [place] Neutrophils (Bld) [#/Vol] 4.69 10*3/uL Normal 1.45-7.50 [facility] 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: Order Comment: Speci men Type: BLOOD SPECIMENOrdering Facility: [facility] Address: [address] [place] [address] Performed By: #### 5 7021-8 ####[facility] LABCLIA [id number] [place] [address] [place] Neutrophils/100 WBC (Bld) 62.5 % Normal [facility] 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: Order Comment: Speci men Type: BLOOD SPECIMENOrdering Facility: [facility] Address: [address] [place] [address] Performed By: #### 5 7021-8 ####[facility] LABCLIA [id number] [place] [address] [place] Nucleated RBC (Bld) [#/Vol] 10*3/uL Normal <0.01 [facility] 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: Order Comment: Speci men Type: BLOOD SPECIMENOrdering Facility: [facility] Address: [address] [place] [address] Performed By: #### 5 7021-8 ####[facility] LABIA [id number] [place] [address] [place] Nucleated RBC/100 WBC (Bld) [Ratio] 0.0 /100 WBC Normal [facility] 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: Order Comment: Speci men Type: BLOOD SPECIMENOrdering Facility: [facility] Address: [address] [place] [address] Performed By: #### 5 7021-8 ####[facility] LABIA [id number] [place] [id number] [place] Platelet mean volume (Bld) [Entitic vol] 11.7 fL Normal 9.0-12.7 [facility] 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: Order Comment: Speci men Type: BLOOD SPECIMENOrdering Facility: [facility] Address: [address] [place] [address] Performed By: #### 5 7021-8 ####[facility] LABIA [id number] [place] [id number] [place] Platelets (Bld) [#/Vol] 315 10*3/uL Normal 150-400 [facility] 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: Order Comment: Speci men Type: BLOOD SPECIMENOrdering Facility: [facility] Address: [address] [place] [address] Performed By: #### 5 7021-8 ####[facility] LABCLIA [id number] [place] [address] [place] RBC (Bld) [#/Vol] 4.68 10*6/uL Normal 3.90-5.20 [facility] 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: Order Comment: Speci men Type: BLOOD SPECIMENOrdering Facility: [facility] Address: [address] [place] [address] Performed By: #### 5 7021-8 ####[facility] LABCLIA [id number] [place] [address] [place] WBC (Bld) [#/Vol] 7.50 10*3/uL Normal 3.70-11.00 [facility] 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: Order Comment: Speci men Type: BLOOD SPECIMENOrdering Facility: [facility] Address: [address] [place] [address] Performed By: #### 5 7021-8 ####[facility] [id number] [address] [place] CNOVon 04-19-2025 CNOV Office Visit (INTMWS ) YOBANI REID ([id number]) 1945 F Date Time Provider Department 04/19/25 8:40 AM OLIMPIA GOMEZ INTMWS During your visit today, we recorded the following information about you: Pulse Blood pressure Weight 54/minute 128/60 112.1 kg Olimpia Gomez APRN.CNP 04/19/2025 9:01 AM Signed SUBJECTIVE Yobanijina Reid is a 79 year old female here today for a check up on her medical problems. Chief Complaint Patient presents with: F/U 6 months HPI Pao is a 79-year-old female with a history of HTN, sleep apnea, and trigger finger, presenting for a follow-up visit. Pao reports intermittent symptoms of trigger finger in both hands, describing it as manageable and not severe enough to seek further treatment at this time. She has a history of three trigger finger releases. She has been evaluated by sleep medicine and was advised to use an oral appliance for her mild sleep apnea. However, she has not pursued this treatment due to concerns about exacerbating her TMJ. Instead, she has been practicing mouth taping at night, as recommended by her dentist, and sleeps in a recliner, which she finds effective. She is under the care of Dr. Moreira at [facility] and is currently taking potassium supplements. Recent lab results from January show a GFR of 37 and normal potassium levels. She is also monitored by [facility] for her INR levels. She reports running out of atenolol and requests a two-week supply. She denies recent hospitalizations or ER visits, as well as any recent episodes of chest pain, chest tightness, or dyspnea. She does not report any concerns about anxiety or depression. She has been actively participating in a stretch class at the [facility] twice a week, which she believes has improved her balance and flexibility. She has also been working on weight loss and has lost 3 pounds, though she notes hitting a plateau. She has a living will and power of divorce attorney in place. Her medications were reviewed today and her list is now up to date. Medications Current Outpatient Medications Medication Sig isosorbide mononitrate ER (IMDUR) 30 mg 24 hr tablet Take 1 tablet by mouth once daily. atorvastatin (LIPITOR) 40 mg tablet Take 1 tablet by mouth daily at bedtime. For cholesterol. levothyroxine (SYNTHROID) 112 mcg tablet Take 1 tablet by mouth once daily. magnesium oxide (MAG-OX) 400 mg (241.3 mg magnesium) tablet Take 2 tablets by mouth two times a day. nitroglycerin sublingual (NITROQUICK) 0.4 mg SL tablet Dissolve 1 tablet under the tongue as needed. DISSOLVE ON TONGUE FOR CHEST PAIN. IF NO PAIN RELIEF, CALL 911 Cholecalciferol, Vitamin D3, 50 mcg (2,000 unit) cap Take 1 capsule by mouth once daily. solifenacin (VESICARE) 5 mg tablet Take 5 mg by mouth once daily. hydrocortisone 2.5 % ointment Apply 1 application to affected area twice daily. warfarin (COUMADIN) 5 mg tablet Take 5 mg Fri, Fri and 7.5 mg all other days or as directed (Patient taking differently: Take 5 mg by mouth once daily. Take 5 mg daily x 5 days and 2.5mg and ) meclizine (ANTIVERT) 25 mg tab Take 1 tablet by mouth every 6 hours as needed (dizziness). (prescription given from ER) aspirin(ECOTRIN LOW STRENGTH 81 MG TAB) Take one(1) tablet daily. oxymetazoline hcl(AFRIN SINUS NO DRIP 0.05 % NASAL MIST) as necessary omeprazole (PRILOSEC) 40 mg capsule Take 1 capsule by mouth once daily. fosinopril sodium (MONOPRIL) 40 mg tablet Take 1 tablet by mouth once daily. Fenofibrate (LOFIBRA) 160 mg tablet Take 1 tablet by mouth once daily. atenolol (TENORMIN) 25 mg tablet Take 1 tablet by mouth once daily. atenolol (TENORMIN) 25 mg tablet Take 1 tablet by mouth once daily. amLODIPine (NORVASC) 2.5 mg tablet Take 1 tablet by mouth once daily. (Patient not taking: Reported on 04/19/2025) blood sugar diagnostic (BLOOD GLUCOSE TEST) test strip Easy Max Test blood sugar(s) one time daily and as needed. Dx: Type 2 DM - Controlled E11.22 N18.3 Insulin: No Blood-Glucose Meter monitoring kit Glucose Meter of Choice - Kit - Dx: Other DM Code E11.22 N18.3 Lancets lancets Use as instructed--Check sugars up to once daily. DX: E11.9, Not insulin requiring No current facility-administered medications for this visit. 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 Normal [facility] Comprehensive metabolic 2000 panelon 04-19-2025 Albumin [Mass/Vol] 4.1 g/dL Normal 3.9-4.9 [facility] 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: Order Comment: Speci men Type: BLOOD SPECIMENOrdering Facility: [facility] Address: [address] [place] [address] Performed By: #### 2 4323-8, 6-3, LIPNF, 49757-4 ####[facility] LABCLIA [id number] [place] [address] [place] ALP [Catalytic activity/Vol] 52 U/L Normal 34-123 [facility] 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: Order Comment: Speci men Type: BLOOD SPECIMENOrdering Facility: [facility] Address: [address] [place] [address] Performed By: #### 2 4323-8, 3016-3, LIPNF, ####[facility] LABCLIA [id number] [place] [id number] [place] ALT [Catalytic activity/Vol] 13 U/L Normal 7-38 [facility] 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: Order Comment: Speci men Type: BLOOD SPECIMENOrdering Facility: [facility] Address: [address] [place] [address] Performed By: #### 2 4323-8, 3016-3, LIPNF, 84185-5 ####[facility] LABCLIA [id number] [address] [address] [place] Anion gap [Moles/Vol] 8 mmol/L Normal 8-15 [facility] 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: Order Comment: Speci men Type: BLOOD SPECIMENOrdering Facility: [facility] Address: [address] [place] [address] Performed By: #### 2 4323-8, 3015-3, LIPNF, ####[facility] LABCLIA [id number] [address] [address] [place] AST [Catalytic activity/Vol] 21 U/L Normal 13-35 [facility] 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: Order Comment: Speci men Type: BLOOD SPECIMENOrdering Facility: [facility] Address: [address] [place] [address] Performed By: #### 2 4323-8, 3015-3, LIPNF, ####[facility] LABCLIA [id number] [place] [id number] [place] Bilirubin [Mass/Vol] 0.6 mg/dL Normal 0.2-1.3 [facility] 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: Order Comment: Speci men Type: BLOOD SPECIMENOrdering Facility: [facility] Address: [address] [place] [address] Performed By: #### 2 4323-8, 3015-3, LIPNF, ####[facility] LABCLIA [id number] [address] [address] [place] Calcium [Mass/Vol] 10.4 mg/dL High 8.5-10.2 [facility] 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: Order Comment: Speci men Type: BLOOD SPECIMENOrdering Facility: [facility] Address: [address] [place], [place] [address] Performed By: #### 2 4323-8, 3015-3, LIPNF, ####[facility] LABCLIA [id number] [address] [address] [place] Chloride [Moles/Vol] 105 mmol/L Normal 98-107 [facility] 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: Order Comment: Speci men Type: BLOOD SPECIMENOrdering Facility: [facility] Address: [address] [place] [address] Performed By: #### 2 4323-8, 3016-3, LIPNF, ####[facility] LABCLIA [id number] [address] [address] [place] CO2 [Moles/Vol] 27 mmol/L Normal 22-30 [facility] 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: Order Comment: Speci men Type: BLOOD SPECIMENOrdering Facility: [facility] Address: [address] [place] [address] Performed By: #### 2 4323-8, 6-3, LIPNF, ####[facility] LABCLIA [id number] [place] [address] [place] Creatinine [Mass/Vol] 1.40 mg/dL High 0.58-0.96 [facility] 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: Order Comment: Speci men Type: BLOOD SPECIMENOrdering Facility: [facility] Address: [address] [place] [address] Performed By: #### 2 4323-8, 6-3, LIPNF, ####[facility] LABCLIA [id number] [place] [address] [place] Creatinine and Glomerular filtration rate.predicted panel (S/P/Bld) 39 mL/min/1.73m??? Low >=60 [facility] 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: Order Comment: Speci men Type: BLOOD SPECIMENOrdering Facility: [facility] Address: [address] [place] [address] Result Comment: Brenda mated Glomerular Filtration Rate (eGFR) is calculated using the 2020 CKD-EPI creatinine equation. This equation utilizes serum creatinine, sex, and age as parameters. The creatinine assay has traceable calibration to isotope dilution-mass spectrometry. Refer to KDIGO guidelines for clinical interpretation. In patients with unstable renal function, e.g. those with acute kidney injury, the eGFR may not accurately reflect actual GFR. Performed By: #### 2 4323-8, 6-3, [place], 41412-0 ####[facility] LABCLIA [id number] [address] [address] [place] Glucose [Mass/Vol] 87 mg/dL Normal 74-99 [facility] 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: Order Comment: Speci men Type: BLOOD SPECIMENOrdering Facility: [facility] Address: [address] [place] [address] Result Comment: The [place] Diabetes Association (ADA) provides guidance for cutoff values for fasting glucose and random glucose. The ADA defines fasting as no caloric intake for at least 8 hours. Fasting plasma glucose results between 100 to 125 mg/dL indicate increased risk for diabetes (prediabetes). Fasting plasma glucose results greater than or equal to 126 mg/dL meet the criteria for diagnosis of diabetes. In the absence of unequivocal hyperglycemia, results should be confirmed by repeat testing. In a patient with classic symptoms of hyperglycemia or hyperglycemic crisis, random plasma glucose results greater than or equal to 200 mg/dL meet the criteria for diagnosis of diabetes. Reference: Standards of Medical Care in Diabetes 2016, [place] [employer] Association. Diabetes Care. 2016.39(Suppl 1). Performed By: #### 2 4323-8, 6-3, KYLE, ####[facility] LABCLIA [id number] [facility] [address] [address] [place] Potassium [Moles/Vol] 5.3 mmol/L High 3.7-5.1 [facility] 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: Order Comment: Speci men Type: BLOOD SPECIMENOrdering Facility: [facility] Address: [address] [place] [id number] Performed By: #### 2 4323-8, 6-3, KYLE, ####[facility] LABIA [id number] [facility] [address] [address] [place] Protein [Mass/Vol] 7.2 g/dL Normal 6.3-8.0 [facility] 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: Order Comment: Speci men Type: BLOOD SPECIMENOrdering Facility: [facility] Address: [address] [place] [address] Performed By: #### 2 4323-8, 3015-3, LIPNF, ####[facility] LABCLIA [id number] [address] [place] [address] [place] Sodium [Moles/Vol] 140 mmol/L Normal 136-144 [facility] 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: Order Comment: Speci men Type: BLOOD SPECIMENOrdering Facility: [facility] Address: [address] [place] [address] Performed By: #### 2 4323-8, 6-3, LIPNF, ####[facility] LABIA [id number] [address] [address] [place] Urea nitrogen [Mass/Vol] 23 mg/dL High 7-21 [facility] 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: Order Comment: Speci men Type: BLOOD SPECIMENOrdering Facility: [facility] Address: [address] [place] [address] Performed By: #### 2 4323-8, 6-3, LIPNF, ####[facility] LABCLIA [id number] [address] [address] [place] HbA1c (Bld)on 04-19-2025 Average glucose Estimated from glycated hemoglobin (Bld) [Mass/Vol] 128 mg/dL Normal [facility] 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: Order Comment: Speci men Type: BLOOD SPECIMENOrdering Facility: [facility] Address: [address] [place], [place] [address] Result Comment: eAG: (Estimated average glucose) is a calculated value from HgbA1c and is metals sales representative of the average blood glucose level in the last 2-3 month period. Performed By: #### 5 5454-3 ####[facility] LABCLIA [id number] [address] [address] [place] HbA1c (Bld) [Mass fraction] 6.1 % High 4.3-5.6 [facility] 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: Order Comment: Alinai jessi Type: BLOOD SPECIMENOrdering Facility: [facility] Address: [address] [place] [address] Result Comment: [place] Diabetes Association guidelines indicate that patients with HgbA1c in the range 5.7-6.4% are at increased risk for development of diabetes, and intervention by lifestyle modification may be beneficial. HgbA1c greater or equal to 6.5% is considered diagnostic of diabetes. Performed By: #### 5 5454-3 ####[facility] LABCLIA [id number] [place] [address] [place] LIPID PANEL, NONFASTINGon Cholesterol [Mass/Vol] 170 mg/dL Normal <200 [facility] 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: Order Comment: Unique jessi Type: BLOOD SPECIMENOrdering Facility: [facility] Address: [address] [place] [address] Result Comment: <200 mg/dL, Desirable 200-239 mg/dL, Borderline high >239 mg/dL, High Performed By: #### 2 4323-8, 3016-3, LIPNF, 15266-3 ####[facility] LABCLIA [id number] [address] [address] [place] HDL CHOLESTEROL, NF 46 mg/dL Normal >39 [facility] 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: Order Comment: Unique bowen Type: BLOOD SPECIMENOrdering Facility: [facility] Address: [address] [place] [address] Result Comment: 40-5 9 mg/dL, Acceptable >59 mg/dL, High: Negative risk factor for coronary heart disease <40 mg/dL, Low: Positive risk factor for coronary heart disease Performed By: #### 2 4323-8, 3016-3, LIPNF, 39477-1 ####[facility] LABCLIA [id number] [address] [place] [address] [place] LDL CHOLESTEROL CALCULATED, NF 106 mg/dL High <100 [facility] 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: Order Comment: Unique bowen Type: BLOOD SPECIMENOrdering Facility: [facility] Address: [address] [place] [address] Result Comment: <100 mg/dL, Optimal 100-129 mg/dL, Near optimal/above optimal 130-159 mg/dL, Borderline high 160-189 mg/dL, High >189 mg/dL, Very high Secondary prevention optimal LDL Cholesterol levels are recommended to be <70 mg/dL LDL cholesterol is calculated using the Gallagher-NIH equation. Performed By: #### 2 4323-8, 3016-3, LIPNF, ####[facility] LABIA [id number] [address] [facility] LDL/HDL RATIO, NF 2.30 mg/dL Normal <2.54 [facility] 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: Order Comment: Unique bowen Type: BLOOD SPECIMENOrdering Facility: [facility] Address: [address] [place] [address] Result Comment: Refe rence: 1. National Cholesterol Education Program ATP III Guideline At-A-Glance Quick Desk Reference: National Heart, Lung, and Blood [place]. National Institutes of Health. 2001: NIH Publication No. 01-3305. 2. An International Atherosclerosis Society position paper: global recommendations for the management of dyslipidemia: executive summary, Atherosclerosis. 2014: 232(2):410-413. Performed By: #### 2 4323-8, 6-3, LIPNF, ####[facility] LABCLIA [id number] [place] [id number] [place] NON HDL CHOL, NF 124 mg/dL Normal <130 [facility] 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: Order Comment: Unique bowen Type: BLOOD SPECIMENOrdering Facility: [facility] Address: [address] [place] [address] Result Comment: <130 mg/dL, Optimal 130-159 mg/dL, Near optimal/above optimal 160-189 mg/dL, Borderline high 190-219 mg/dL, High >219 mg/dL, Very high Secondary prevention optimal non HDL Cholesterol levels are recommended to be <100 mg/dL Performed By: #### 2 4323-8, 3016-3, LIPNF, 37673-8 ####[facility] LABCLIA [id number] [address] [place] [address] [place] T CHOL/HDL RATIO NF 3.70 mg/dL Normal <5.10 [facility] 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: Order Comment: Speci men Type: BLOOD SPECIMENOrdering Facility: [facility] Address: [address] [place] [address] Performed By: #### 2 4323-8, 3016-3, LIPNF, 70535-3 ####[facility] LABIA [id number] [place] [address] [place] TRIGLYCERIDES, NF 100 mg/dL Normal <150 [facility] 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: Order Comment: Speci men Type: BLOOD SPECIMENOrdering Facility: [facility] Address: [address] [place] [address] Result Comment: <150 mg/dL, Normal 150-199 mg/dL, Borderline high 200-499 mg/dL, High >499 mg/dL, Very high Performed By: #### 2 4323-8, 3016-3, LIPNF, ####[facility] LABCLIA [id number] [address], [place] [address] [place] VLDL CHOLESTEROL, NF 17 mg/dL Normal <30 [facility] 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: Order Comment: Speci men Type: BLOOD SPECIMENOrdering Facility: [facility] Address: [address] [place], [place] [address] Performed By: #### 2 4323-8, 3016-3, LIPNF, 42462-9 ####[facility] LABCLIA [id number] [address], [facility] [place] Magnesium SerPl-mCncon 04-19 Magnesium [Mass/Vol] 2.0 mg/dL Normal 1.7-2.3 [facility] 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: Order Comment: Speci men Type: BLOOD SPECIMENOrdering Facility: [facility] Address: [facility] [place] [address] Performed By: #### 2 4323-8, 3016-3, LIPBING, 23999-8 ####[facility] LABCLIA [id number] [place] [id number] [place] PTH-Intact SerPl-mCncon 05- 0-2024 Parathyrin.intact [Mass/Vol] 27 pg/mL Normal 15-65 [facility] 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: Order Comment: Speci men Type: BLOOD SPECIMENOrdering Facility: [facility] Address: [address] [place] [address] Performed By: #### 2 731-8 ####[facility] LABCLIA [id number] [place] [id number] [place] TSH SerPl-aCncon 04-19-2025 TSH Qn 1.850 m[IU]/L Normal 0.270-4.20 0 [facility] 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: Order Comment: Speci men Type: BLOOD SPECIMENOrdering Facility: [facility] Address: [address] [place], [place] [address] [place] [address] Performed By: #### 2 4323-8, 3016-3, LIPBING, ####[facility] LABCLIA [id number] [place] [address] [place] Anion gap in Serum or Plasma Ordered By: Augustin Moreira on 02-16-2025 Anion gap [Moles/Vol] 11 mmol/L - [facility] BUN/creatinine ratioOrdered By: Augustin Moreira on 02-16-2025 Urea nitrogen/Creatinine [Mass ratio] 17.6 mg/mg - [facility] Basic Metabolic Profile (BMP )on 02-16-2025 BUN/CRE 17.6 RATIO Normal 09-19 [facility] 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: Performed By: #### L 500.2500 #### [facility] [address] [place], [address] Calcium [Mass/Vol] 10.3 mg/dL Normal 7.6-11.0 [facility] 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: Performed By: #### L 500.2500 #### [facility] [address] [place], [address] Chloride [Moles/Vol] 101 mmol/L Normal 98-108 [facility] 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: Performed By: #### L 500.2500 #### [facility] [address] [place], [address] CO2 [Moles/Vol] 26.6 mmol/L Normal 21.0-32.0 [facility] 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: Performed By: #### L 500.2500 #### [facility] [address] [place], [address] Creatinine [Mass/Vol] 1.44 mg/dL High 0.70-1.20 [facility] 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: Performed By: #### L 500.2500 #### [facility] [address] [place], [address] GAP 11 Normal 5-15 [facility] 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: Performed By: #### L 500.2500 #### [facility] [address] [place], [address] GFR/1.73 sq M.predicted among non-blacks MDRD (S/P/Bld) [Vol rate/Area] 37 mL/min/{1.73_m2} Low >60 [facility] 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: Result Comment: mL/m in/1.73m2 CKD-EPI Creatinine Equation (2020) Performed By: #### L 500.2500 #### [facility] [address] [place], [address] Glucose [Mass/Vol] 110 mg/dL High 70-99 [facility] 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: Performed By: #### L 500.2500 #### [facility] [address] [place], [address] Potassium [Moles/Vol] 4.5 mmol/L Normal 3.3-5.1 [facility] 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: Result Comment: Hemo lysis present, Results??could be affected. ?? Performed By: #### L 500.2500 #### [facility] [address] [place], [address] Sodium [Moles/Vol] 138 mmol/L Normal 133-145 [facility] 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: Performed By: #### L 500.2500 #### [facility] [address] [place], [address] Urea nitrogen [Mass/Vol] 25 mg/dL High 03-19 [facility] 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: Performed By: #### L 500.2500 #### [facility] [address] [place], [address] Carbon dioxide, total [Moles /volume] in Central venous bloodOrdered By: Augustin Moreira on 02-16-2025 CO2 [Moles/Vol] 26.6 mmol/L 21.0-32.0 [facility] Chloride assayOrdered By: Jame Moreira on 02-16-2025 Chloride [Moles/Vol] 101 mmol/L 98-108 [facility] GFR/1.73 sq M.predicted jose g non-blacks MDRD (S/P/Bld) [Vol rate/Area]Ordered By: Augustin Moreira on 02-16-2025 Estimated GFR (MDRD) Non-Af Amer 37 Low >60 [facility] 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: mL/min/1.73m2 CKD-EP I Creatinine Equation (2020) Potassium (Unsp spec) [Mass/ Vol]Ordered By: Augustin Moreira on 02-16-2025 Potassium [Moles/Vol] 4.5 mmol/L 3.3-5.1 [facility] 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: Hemolysis present, R esults could be affected. Serum creatinine measurement (mass/volume)Ordered By: Augustin Moreira on 02-16-2025 Creatinine [Mass/Vol] 1.44 mg/dL High 0.70-1.20 [facility] Serum glucose measurement (m ass/volume)Ordered By: Augustin Moreira on 02-16-2025 Glucose [Mass/Vol] 110 mg/dL High 70-99 [facility] Serum or plasma calcium tiffanie urement (mass/volume)Ordered By: Augustin Moreira on 02-16-2025 Calcium [Mass/Vol] 10.3 mg/dL 7.6-11.0 [facility] Serum or plasma urea nitroge n measurement (mass/volume)Ordered By: Augustin Moreira on 02-16-2025 Urea nitrogen [Mass/Vol] 25 mg/dL High 4-19 [facility] Sodium levelOrdered By: Zafar Moreira on 02-16-2025 Sodium [Moles/Vol] 138 mmol/L 133-145 [facility] Cardiology Visit Reporton Cardiology Visit Report [facility] [address] [place] [address]. [address] [place] [address] OFFICE VISIT Date of Service: 02/09/25 MR#: [id number] Acct: [id number] Name: YOBANI REID Rep #: [id number] : 1945 Provider: Dr. Augustin Moreira MD Age/Sex: 79/F Location: [facility] Status: Signed HPI HPI History of Present Illness Details: This lady with history of coronary artery disease, diastolic dysfunction, dyslipidemia, pulmonary embolism and hypertension is here for follow-up visit. Denies any complaints. No chest pains. No shortness of breath. Denies any palpitations. Denies orthopnea or PND. Occasional ankle edema. Intake Vital Signs 08/25/24 08:29 02/09/25 13:54 Height 5 ft 4 in 5 ft 4 in Weight: 248 lb BMI 42.5 BP 148/76 H Blood Pressure Location Lt brachial Position Sitting Respiration 16 Pulse 58 L Pulse Source NIBP Intake Visit Reasons: 6 M FU Oncology Physician Required: No Accompanied by: Self Is patient in pain?: No Allergies adhesive Allergy (Verified 02/09/25 14:16) Rash amoxicillin (Amoxicillin) Allergy (Verified 02/09/25 14:16) Rash ampicillin Allergy (Verified 02/09/25 14:16) Rash cephalexin monohydrate (From Keflex) Allergy (Verified 02/09/25 14:16) Rash lactose (lactose intolerant) Allergy (Verified 02/09/25 14:16) Abd cramps/diarrhea Penicillins Allergy (Verified 02/09/25 14:16) Rash Sulfa (Sulfonamide Antibiotics) Allergy (Verified 02/09/25 14:16) Rash Medications ???Medication ???Instructions ???Recorded ???Confirmed ???Type aspirin 81 mg chewable tablet 81 mg PO QHS hearth 05/10/1402/09 History levothyroxine 112 mcg tablet 112 mcg PO DAILY thyroid 05/10/14 02/09/25 History nitroglycerin 0.4 mg sublingual 0.4 mg sublingual Q5M PRN Chest 02/09/25 History tablet Pain fenofibrate 160 mg tablet 160 mg PO DAILY cholesterol 02/09/25 History magnesium oxide 400 mg (241.3 mg 800 mg PO BID suppliment 10/27/19 02/09/25 History magnesium) tablet atenolol 25 mg tablet 25 mg PO DAILY blood pressure 07/0102/09/25 History atorvastatin 40 mg tablet 40 mg PO QHS cholestorol 07/10/20 02/09/25 History hydrocortisone 2.5 % topical cream 1 applic topical BID PRN Itching 07/10/20 02/09/25 History isosorbide mononitrate 30 mg 30 mg PO DAILY heart #90 tabs 08/0102/09/25 Rx tablet,extended release 24 hr solifenacin 5 mg tablet 5 mg PO DAILY bladder 07/18/2211/24 History fosinopril 40 mg tablet 40 mg PO BID this is a dose 02/09/25 Rx increase #60 tabs amlodipine 2.5 mg tablet 2.5 mg PO QDAY 08/25/24 02/09/25 H istory warfarin 2.5 mg tablet 2.5 mg PO .TUTHSU 08/25/24 5 History warfarin 5 mg tablet 5 mg PO MOWEFRSA blood thinner 02/09/25 History Ejection fraction %: 70 Have you fallen in the past year?: No PFSH Medical History Arthritis Atherosclerotic heart disease of [place] coronary artery without angina pectoris Bladder disease Cardiology follow-up encounter Debility Diabetes DM2 (diabetes mellitus, type 2) Essential hypertension Former smoker GERD (gastroesophageal reflux disease) High cholesterol History of echocardiogram History of gastric ulcer History of pulmonary embolism ( 08/2017) History of stress test History of ulceration Hypertension Hypothyroidism Incisional hernia, without obstruction or gangrene Leg cramps nursing home current use of 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 Mixed hyperlipidemia Obesity Obstructive sleep apnea Overactive bladder Post-menopausal Preop cardiovascular exam Presence 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 (10/25/19) Pulmonary embolism (08/2017) RBBB (right bundle branch block) Thyroid disease Wears glasses Surgical History H/O hernia repair History of appendectomy History of cardiac catheterization History of heart artery stent Presence of coronary angioplasty implant and graft ( 10/06/09) S/P cardiac catheterization S/P carpal tunnel release S/P colonoscopy ( 05/2013) S/P hysterectomy S/P tonsillectomy S/P trigger finger release Family History Father CAD (coronary artery disease) Mother CVA (cerebral vascular accident) Hypertension Social History household members: none housing: house number of children: 0 current occupational status: retired pets and animals: No Smoking Status: Former smoker how long ago did patient quit smokin yrs alcohol intake: current alcohol intake frequency: holidays/special occasions only Alcohol type: wine substance use type: does not use caffeine: No ROS Const Co (more content not included)... [facility] 11-20[facility]2024 [facility] ([id number]) 1945 F Date Time Provider Department 11/20/24 [facility] During your visit today, we recorded the following information about you: Victoriano Elizabeth 11/20/2024 9:39 AM Signed Lvm/mcm requesting pt to call back for PATRICIA per workstation order Allergies As of Date: 11/20/2024 Noted Allergy Reaction ADHESIVE TAPE (ROSINS) 11/11/2005 14 - Other: See Comments Comments: Burning and redness where tape touches skin ADHESIVE TAPE-SILICONES 12/29/2023 2 - Rash Comments: Severe burning, red rash following colonoscopy at site of monitor on back AMOXICILLIN 11/11/2005 2 - Rash AMPICILLIN 11/11/2005 2 - Rash NIACIN 11/11/2005 2 - Rash Comments: flushing PENICILLINS 09/28/2009 2 - Rash SULFA (SULFONAMIDE ANTIBIOTICS) 11/18/2005 2 - Rash Date Reviewed: 11/03/2024 Reviewed by: Roseann Elizabeth APRN.COMPENSATION DIRECTOR - Fully Assessed Reason for Visit: Appointment [186] Prescriptions as of 11/20/2024 - isosorbide mononitrate ER (IMDUR) 30 mg 24 hr tablet Take 1 tablet by mouth once daily. - atorvastatin (LIPITOR) 40 mg tablet Take 1 tablet by mouth daily at bedtime. For cholesterol. - levothyroxine (SYNTHROID) 112 mcg tablet Take 1 tablet by mouth once daily. - warfarin (COUMADIN) 5 mg tablet 5mg four days weekly and 2.5 mg all other days or as directed based on INR - magnesium oxide (MAG-OX) 400 mg (241.3 mg magnesium) tablet Take 2 tablets by mouth two times a day. - amLODIPine (NORVASC) 2.5 mg tablet Take 1 tablet by mouth once daily. - fosinopril sodium (MONOPRIL) 40 mg tablet Take 1 tablet by mouth once daily. - atenolol (TENORMIN) 25 mg tablet Take 1 tablet by mouth once daily. - Fenofibrate (LOFIBRA) 160 mg tablet Take 1 tablet by mouth once daily. - omeprazole (PRILOSEC) 40 mg capsule Take 1 capsule by mouth once daily. - nitroglycerin sublingual (NITROQUICK) 0.4 mg SL tablet Dissolve 1 tablet under the tongue as needed. DISSOLVE ON TONGUE FOR CHEST PAIN. IF NO PAIN RELIEF, CALL 911 - Cholecalciferol, Vitamin D3, 50 mcg (2,000 unit) cap Take 1 capsule by mouth once daily. - solifenacin (VESICARE) 5 mg tablet Take 5 mg by mouth once daily. - hydrocortisone 2.5 % ointment Apply 1 application to affected area twice daily. - warfarin (COUMADIN) 5 mg tablet Take 5 mg Fri, Fri and 7.5 mg all other days or as directed - blood sugar diagnostic (BLOOD GLUCOSE TEST) test strip Easy Max Test blood sugar(s) one time daily and as needed. Dx: Type 2 DM - Controlled E11.22 N18.3 Insulin: No - Blood-Glucose Meter monitoring kit Glucose Meter of Choice - Kit - Dx: Other DM Code E11.22 N18.3 - meclizine (ANTIVERT) 25 mg tab Take 1 tablet by mouth every 6 hours as needed (dizziness). (prescription given from ER) - Lancets lancets Use as instructed--Check sugars up to once daily. DX: E11.9, Not insulin requiring - aspirin(ECOTRIN LOW STRENGTH 81 MG TAB) Take one(1) tablet daily. 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 Occult GI bleeding [R19.5] 03/03/2013 08/23/2013 Diabetes mellitus type 2, controlled, without c*02/21/2014 01/15/2018 Class 3 severe obesity due to excess calories w*12/12/2015 Plantar fasciitis, bilateral [M72.2] 06/11/2016 Type 2 diabetes mellitus with stage 3a chronic *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 [Z79.01]05/08/2018 History of pulmonary embolus (PE) [Z86.711] 05/08/2018 Hypertensive kidney disease with stage 3a chron*04/16/2021 Vitamin D deficiency [E55.9] 02/24/2022 Hypomagnesemia [E83.42] 02/24/2022 Pulmonary embolism without acute cor pulmonale *10/13/2023 Encounter Status:Closed by VICTORIANO ELIZABETH on 11/20/24 [facility] Angel 11-18-2024 CNPN Telephone (COUMWS) YOBANI REID ([id number]) 1945 F Date Time Provider Department 11/18/24 JOSE DE JESUS [place] During your visit today, we recorded the following information about you: Severino Healy, PERLA 11/18/2024 10:29 AM Signed patients orders for coumadin clinic inr's has at this time. new order has been pended for approval if possible so that patient can continue to get inr's completed thru the coumadin clinic. coumadin clinic nurse only needs called if order can not be approved. Allergies As of Date: 11/18/2024 Noted Allergy Reaction ADHESIVE TAPE (ROSINS) 11/11/2005 14 - Other: See Comments Comments: Burning and redness where tape touches skin ADHESIVE TAPE-SILICONES 12/29/2023 2 - Rash Comments: Severe burning, red rash following colonoscopy at site of monitor on back AMOXICILLIN 11/11/2005 2 - Rash AMPICILLIN 11/11/2005 2 - Rash NIACIN 11/11/2005 2 - Rash Comments: flushing PENICILLINS 09/28/2009 2 - Rash SULFA (SULFONAMIDE ANTIBIOTICS) 11/18/2005 2 - Rash Date Reviewed: 11/03/2024 Reviewed by: Roseann Elizabeth APRN.COMPENSATION DIRECTOR - Fully Assessed Reason for Visit: Orders [681] Cmt: poc protime Primary Visit Diagnosis:History of pulmonary embolus (PE) [Z86.711] Other Visit Diagnosis:Personal history of DVT (deep vein thrombosis) [Z86.718] Order(s):INR (POC) [5024118] Order #: [id number] STANDING PROTHROMBIN TIME [SQPT] Order #: [id number] STANDING Prescriptions as of 11/22/2024 - isosorbide mononitrate ER (IMDUR) 30 mg 24 hr tablet Take 1 tablet by mouth once daily. - atorvastatin (LIPITOR) 40 mg tablet Take 1 tablet by mouth daily at bedtime. For cholesterol. - levothyroxine (SYNTHROID) 112 mcg tablet Take 1 tablet by mouth once daily. - warfarin (COUMADIN) 5 mg tablet 5mg four days weekly and 2.5 mg all other days or as directed based on INR - magnesium oxide (MAG-OX) 400 mg (241.3 mg magnesium) tablet Take 2 tablets by mouth two times a day. - amLODIPine (NORVASC) 2.5 mg tablet Take 1 tablet by mouth once daily. - fosinopril sodium (MONOPRIL) 40 mg tablet Take 1 tablet by mouth once daily. - atenolol (TENORMIN) 25 mg tablet Take 1 tablet by mouth once daily. - Fenofibrate (LOFIBRA) 160 mg tablet Take 1 tablet by mouth once daily. - omeprazole (PRILOSEC) 40 mg capsule Take 1 capsule by mouth once daily. - nitroglycerin sublingual (NITROQUICK) 0.4 mg SL tablet Dissolve 1 tablet under the tongue as needed. DISSOLVE ON TONGUE FOR CHEST PAIN. IF NO PAIN RELIEF, CALL 911 - Cholecalciferol, Vitamin D3, 50 mcg (2,000 unit) cap Take 1 capsule by mouth once daily. - solifenacin (VESICARE) 5 mg tablet Take 5 mg by mouth once daily. - hydrocortisone 2.5 % ointment Apply 1 application to affected area twice daily. - warfarin (COUMADIN) 5 mg tablet Take 5 mg Mon, Wed and 7.5 mg all other days or as directed - blood sugar diagnostic (BLOOD GLUCOSE TEST) test strip Easy Max Test blood sugar(s) one time daily and as needed. Dx: Type 2 DM - Controlled E11.22 N18.3 Insulin: No - Blood-Glucose Meter monitoring kit Glucose Meter of Choice - Kit - Dx: Other DM Code E11.22 N18.3 - meclizine (ANTIVERT) 25 mg tab Take 1 tablet by mouth every 6 hours as needed (dizziness). (prescription given from ER) - Lancets lancets Use as instructed--Check sugars up to once daily. DX: E11.9, Not insulin requiring - aspirin(ECOTRIN LOW STRENGTH 81 MG TAB) Take one(1) tablet daily. 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] 07/20/2012 Occult GI bleeding [R19.5] 03/03/2013 08/23/2013 Diabetes mellitus type 2, controlled, without c*02/21/2014 01/15/2018 Class 3 severe obesity due to excess calories w*12/12/2015 Plantar fasciitis, bilateral [M72.2] 06/11/2016 Type 2 diabetes mellitus with stage 3a chronic *01/15/2018 nursing home current use of 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 [Z79.01]05/08/2018 History of pulmonary embolus (PE) [Z86.711] 05/08/2018 Hypertensive kidney disease with stage 3a chron*04/16/2021 Vitamin D deficiency [E55.9] 02/24/2022 Hypomagnesemia [E83.42] 02/24/2022 Pulmonary embolism without acute cor pulmonale *10/13/2023 Encounter Status:Closed by OWEN ALMANZA on 11/22/24 Normal [facility] INR (POC)on 11-18-2024 INR Coag (PPP) [Relative time] 2.3 {INR} High 0.8 - 1.2 [facility] Internal Quality Check Acceptable [facility] Interpretation and review of laboratory results Abnormal [facility] Location:[address], [address] [facility] POINT OF CARE [facility] CNOVon 11-03-2024 CNOV Office Visit (SLEWST ) YOBANI REID ([id number]) 1945 F Date Time Provider Department 11/03/24 9:00 AM ROSEANN ELIZABETH During your visit today, we recorded the following information about you: Pulse Blood pressure Weight 74/minute 139/77 113.4 kg Roseann Elizabeth APRN.CNP 11/08/2024 5:47 AM Signed [facility] New Patient Evaluation PATIENT NAME: Yobani Reid DATE OF SERVICE: November 03, 2024 CONSULTING PROVIDER: Jose De Jesus Harrington [address] [facility] [id number] REASON FOR CONSULT: Jose De Jesus Harrington sends the patient for an opinion about PATRICIA. My findings and recommendations will be transmitted electronically via shared medical record to the consulting provider. HPI: Yobani Reid is a 79 year old female. Sleep-related history: she had a PSG right after being in rehab at [facility] in 2022 after a fall. Diagnosed with moderate PATRICIA. She can't stand anything on my face so she is afraid she won't tolerate a mask due to claustrophobia. She sleeps in a recliner at home. She was in a bed during the PSG. SLEEP-WAKE SCHEDULE Bedtime: MN She does not have a hard time falling asleep. Wake time: 5-6 AM, without an alarm. After falling asleep: she wakes up 1 time(s) per night, because of the need to urinate. On weekends, she maintains the same sleep schedule. Average total sleep time (in a 24 hour period): 5-6 hours. SLEEP-RELATED DETAILS Preferred sleep position: reclined Breathing disturbances and other behaviors during sleep: unknown -- she lives alone. 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 Has TMJ issues intermittently. GERD or aspiration: No Waking up with heart pounding or racing: No Anxiety or rumination: No She reports having an urge to move the legs. The urge to move the legs only occurs in the evening or nighttime. The urge to move the legs begins or worsens during periods of rest or inactivity (e.g. lying or sitting). The urge to move the legs is partially or totally relieved by movements such as walking or stretching, at least as long as the activity continues. The urge to move the legs occurs most nights per week and began years ago. Not very bothersome, just repositions and that resolves it. There is no history of iron deficiency or anemia. She has not been told that she has leg kicking during sleep. She denies any history of parasomnias. Daytime sleepiness is not a problem. She does not report sleep paralysis or sleep-related hallucinations or cataplexy WAKE-RELATED DETAILS She does not work. She does have difficulty with memory (names) but not concentration. She denies falling asleep or dozing off when driving. Doesn't drive long distances alone She does take naps. Frequency: most days, Duration: 30-90 min. Naps are refreshing. She does not drink caffeinated beverages. She has lost 50 pounds since 2 yrs. Patient Questionnaires Sleep Scores 10/04/2024 PHQ-9 Score 5 10/04/2024 PROMIS Global Health - (T-Scores - the mean of general population = 50. Five points is a clinically meaningful difference.) Physical T-Score 50.8 Mental T-Score 45.8 PAST TREATMENTS: None PRIOR SLEEP STUDIES: A Polysomnogram performed on 10/09/23 revealed an AHI of 15.6; supine index of 15.6; REM index of 21, PLM index of 0, PLM arousal index of 0, and the oxygen saturation was below 88% for 49 min of the study. 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 vaginitis/post-men. Postsurgical percutaneous transluminal coronary angioplasty status 12/15/2009 Snoring Type II or unspecified type diabetes mellitus without mention of complication, not stated as uncontrolled 02/21/2014 Unspecified essential hypertension Essential hypertension Unspecified hypothyroidism Hypothyroidism Unspecified urinary incontinence urge PAST SURGICAL HISTORY Procedure Laterality Date ADENOIDECTOMY PRIMARY Adenoidectomy COLONOSCOPY FLX DX W/COLLJ SPEC WHEN PFRMD 02/18/2006 Colonoscopy COLONOSCOPY FLX DX W/COLLJ SPEC WHEN PFRMD 06/14/2013 Colonoscopy COLONOSCOPY FLX DX W/COLLJ SPEC WHEN PFRMD 07/27/2019 Colonoscopy COLONOSCOPY SC (more content not included)... Normal [facility] CNOVon 10-20-2024 CNOV Office Visit (INTMWS ) YOBANI REID ([id number]) 1945 F Date Time Provider Department 10/20/24 8:40 AM JOSE DE JESUS HARRINGTON INTMWS During your visit today, we recorded the following information about you: Pulse Respiration Blood pressure Weight 58/minute 16/minute 122/60 113.7 kg Jose De Jesus Harrington MD 10/23/2024 7:36 PM Signed This note was created using [employer]. Subjective Yobani Reid is a 79 year old female. Patient presents with: Follow Up SUBJECTIVE: Yobani Reid is a 79 year old year old lady here today for 6 month follow up appointment for review of medical conditions. Yobani Reid is a 79-year-old female with a history of arthritis, presenting for a 6-month follow-up. Yobani reports significant pain and stiffness in her hands, particularly in the left hand, which has been ongoing for a couple of weeks. She notes difficulty in making a fist in the morning due to pain and stiffness, which she attributes to a possible change in weather. The stiffness is more pronounced in the morning but persists throughout the day if she does not keep her hands moving. She also reports swelling in her hands, making it difficult to wear her ring in the morning. She mentions a history of trigger finger in her right hand, which was surgically treated a few years ago, and now suspects she has trigger finger in her left hand, particularly in the ring finger. She denies issues with other fingers. Yobani has been attending a stretch class twice a week and performs hand exercises but has not tried specific exercises for trigger finger. She has not used Voltaren gel or similar topical treatments. She has not tried glucosamine or collagen supplements for arthritis. Yobani also reports a recent episode of severe diarrhea lasting a week, which she attributes to food poisoning. This episode resulted in an 11-pound weight loss. She denies vomiting during this episode. She has since recovered but notes that most of the weight loss has been maintained. She has been working on weight loss for a couple of years, starting at 300 lbs and currently at 284 lbs. She has made dietary changes, such as reducing bread intake and being more conscious of calorie intake. She denies following any specific diet, such as the gummy bear diet, and expresses skepticism about such diets. Yobani is on multiple medications, including amlodipine, atenolol, Lipitor, fosinopril, Coumadin, and Synthroid. She reports a recent issue with her mail-order pharmacy, [facility], which delayed her amlodipine refill, causing her to run out of the medication last week. She has since contacted the pharmacy to set up automatic refills for all her medications. She also reports taking Coumadin 5 mg four days a week and 2.5 mg three days a week, with her next INR check scheduled for today. She mentions that her diet last week was inconsistent, which may affect her INR levels. Yobani has had difficulty accessing her [employer] retargeting account due to issues with password and two-factor authentication. She has not been able to update her information or use the [id number] feature. 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 vaginitis/post-men. Postsurgical percutaneous transluminal coronary angioplasty status 12/15/2009 Snoring Type II or unspecified type diabetes mellitus without mention of complication, not stated as uncontrolled 02/21/2014 Unspecified essential hypertension Essential hypertension Unspecified hypothyroidism Hypothyroidism Unspecified urinary incontinence urge Current Outpatient Medications Medication Sig amLODIPine (NORVASC) 2.5 mg tablet Take 1 tablet by mouth once daily. fosinopril sodium (MONOPRIL) 40 mg tablet Take 1 tablet by mouth once daily. atenolol (TENORMIN) 25 mg tablet Take 1 tablet by mouth once daily. Fenofibrate (LOFIBRA) 160 mg tablet Take 1 tablet by mouth once daily. omeprazole (PRILOSEC) 40 mg capsule Take 1 capsule by mouth once daily. nitroglycerin sublingual (NITROQUICK) 0.4 mg SL tablet Dissolve 1 tablet under the tongue as needed. DISSOLVE ON TONGUE FOR CHEST PAIN. IF NO PAIN RELIEF, (more content not included)... Normal [facility] HEMOGLOBIN A1C (POC)on 10-20 HbA1c (Bld) [Mass fraction] 6.1 % Abnormal 4.3 - 5.6 % [facility] 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: Location:[facility], [address], [place], [address] Point of care (POC) Hemoglobin A1c (HGBA1C) testing is intended to assess glucose control and provide a management tool for patients known to have diabetes and their healthcare providers. Target HGBA1C levels may depend on specific clinical circumstances. POC HGBA1C is not intended for use as a diagnostic or screening test; laboratory-based testing should be used for diagnostic purposes. The following information is supplemental and may not be applicable to specific diabetes management situations: The POC device car shakeout operator provides a normal range of 4.2% to 6.5% for the HGBA1C POC test. However, the [place] [employer] guidelines indicate that patients with HGBA1C in the range of 5.7% to 6.4% are at increased risk for development of diabetes and that intervention by lifestyle modification may be beneficial. A HGBA1C level greater than or equal to 6.5% is considered diagnostic of diabetes, pending confirmatory testing. Use of HGBA1C testing to evaluate glucose control may not be appropriate for patients with hemoglobin variants or other conditions (e.g. anemia) that alter red blood cell lifespan. Interpretation and review of laboratory results Abnormal [facility] CNOVon 10-08-2024 CNOV Office Visit (INTMWS ) YOBANI REID ([id number]) 1945 F Date Time Provider Department 10/08/24 10:20 AM HERBERT JAY INTMWS During your visit today, we recorded the following information about you: Pulse Respiration Blood pressure Weight 56/minute 16/minute 126/75 112.8 kg Herbert Jay APRN.CNS 10/08/2024 10:58 AM Signed SUBJECTIVE: Shingrix Vaccine(2 of 3) due on 04/09/2012 RSV Vaccine(1 - 1-dose 75+ series) Never done Diabetic Foot Exam due on 03/20/2024 Dilated Retinal Exam due on 06/19/2024 Covid-19 Vaccine() due on 08/01/2024 HbA1C due on 09/18/2024 JACKSON Reid is a 79 year old female. 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 Office note 10/04/2024 excerpted:. She called the office earlier today and reported the following (excerpted): Patient calls for diarrhea. Nurse triage recommends appointment to be seen within 24 hours. Patient agreeable. Appointment scheduled. Care advice reviewed. Patient verbalizes understanding. Reason for Disposition [1] SEVERE diarrhea (e.g., 7 or more times / day more than normal) AND [2] age > 60 years Answer Assessment - Initial Assessment Questions 1. DIARRHEA SEVERITY: - SEVERE (SCALE 8-10; OR WORST POSSIBLE): Increase of 7 or more stools daily over normal; moderate increase in ostomy output; incontinence. 2. ONSET: the past week 3. STOOL DESCRIPTION: Mostly liquid. Once in a while a little more solid. 4. VOMITING: No vomiting 5. ABDOMEN PAIN: NA 6. ABDOMEN PAIN SEVERITY: NA 7. ORAL INTAKE:Drinking about 68 oz of fluids mostly water. 8. HYDRATION: Patient reports she is usually somewhat dehydrated. Voided last time this morning. 9. EXPOSURE: Patient was in [place] vacationing when diarrhea started. Doesn't recall eating anything that could have caused diarrhea and nothing spoiled. No recent foreign travel. Patient did try imodium but didn't seem to make a difference. 10. ANTIBIOTIC USE: No 11. OTHER SYMPTOMS: No fever, blood in stool possibly x 1 yesterday. Reports the toilet bowel water looked pink but none since. 12. : No Protocols used: [id number] She reports being on vacation in [place]. She noted that she started with loose stools last Friday. Has persisted and progressively worse/more frequent. Notes not eating much. Fluid intake, trying to push but not getting 64 oz/day in Duration: 6 to 7 days Onset: one week, gradual onset Sick contacts: no Fever:no Heartburn: Reflux: no Abdominal pain: no Nausea: no Vomiting: no Diarrhea: x 7 days Constipation: BRBPR: no Black tarry: no No recent hospitalization or antibiotic use is known. She has lost 11 pounds of weight in the last week. She noted pink-tinge on TP with BM a couple times but no blood. Presents today noting all symptoms have resolved. Wonders if she may have had dairy intolerance, was having milk on cereal while on vacation. Plans on getting vaccines at pharmacy. Review of Systems Constitutional: Negative. Respiratory: Negative. Gastrointestinal: Negative. Endocrine: Negative. Musculoskeletal: Positive for arthralgias, back pain and gait problem. Objective BP 126/75 Pulse (!) 56 Resp 16 Wt 112.8 kg (248 lb 10.9 oz) BMI 43.36 kg/m? Physical Exam Vitals and nursing note reviewed. Constitutional: Appearance: Normal appearance. HENT: Head: Normocephalic and atraumatic. Eyes: Conjunctiva/sclera: Conjunctivae normal. Neck: Thyroid: No thyromegaly. Vascular: Normal carotid pulses. No JVD. Cardiovascular: Rate and Rhythm: Normal rate and regular rhythm. Pulses: Carotid pulses are 2+ on the right side and 2+ on the left side. Radial pulses are 2+ on the right side and 2+ on the left side. Heart sounds: Normal heart sounds. Pulmonary: Effort: Pulmonary effort is normal. Breath sounds: Normal breath sounds. Abdominal: General: Bowel sounds are normal. There is no distension. Palpations: Abdomen is soft. T (more content not included)... Normal [facility] YOB[facility] ([id number]) 1945 F Date Time Provider Department 10/06/24 JOSE DE JESUS HARRINGTON INTMWS During your visit today, we recorded the following information about you: Lexy Rodrigez LPN 10/06/2024 10:07 AM Signed ----- Message from Herbert Chavez APRN.GARDENING SUPERVISOR sent at 10/05/2024 3:45 PM EST ----- Lab work showed some relative dehydration otherwise no concerning findings so far recommend pushing fluids as discussed at her visit. Complete stool cultures when she is able to do so. INR subtherapeutic, check current dosing a. Nd if any missed doses. Lexy Rodrigez LPN 10/06/2024 10:24 AM Signed Spoke with pt and information listed below given. Pt verbalizes understanding. Pt taking coumadin 5 mg , and 2.5 mg all other days. DENIES: missed doses, bleeding, bruising, change in appetite, taking ATBs. Pt reports today 10-06-24 no diarrhea today. Had a solid BM. Pt was not given any stool containers when she was here to have lab work done. Pt reports she will stop in and belt picker containers. ALVAOR Sosa Liza D, MD 10/06/2024 7:19 PM Signed Noted INR was down to 1.6 in August and then was fine through August on same dose coumadin. Stay on same dose and recheck in 2 weeks. If diarrhea has resolved, then does not need to do stool tests. Britney Deleon, PERLA 10/07/2024 9:40 AM Signed Called and left a voicemail for the Patient to call back and ask for a nurse to receive the providers message.Updated Anticoag tracker. PERLA Logan Sherrie, RN 10/07/2024 9:53 AM Signed Patient given provider's messages below. Pt verbalizes understanding of coumadin and INR orders. Patient states her diarrhea has resolved and she will not complete the stool tests then. Desiree Dailey RN Allergies As of Date: 10/06/2024 Noted Allergy Reaction ADHESIVE TAPE (ROSINS) 11/11/2005 14 - Other: See Comments Comments: Burning and redness where tape touches skin ADHESIVE TAPE-SILICONES 12/29/2023 2 - Rash Comments: Severe burning, red rash following colonoscopy at site of monitor on back AMOXICILLIN 11/11/2005 2 - Rash AMPICILLIN 11/11/2005 2 - Rash NIACIN 11/11/2005 2 - Rash Comments: flushing PENICILLINS 09/28/2009 2 - Rash SULFA (SULFONAMIDE ANTIBIOTICS) 11/18/2005 2 - Rash Date Reviewed: 10/04/2024 Reviewed by: Herbert Jay APRN.GARDENING SUPERVISOR - Fully Assessed Reason for Visit: Results/INR questions [Other] 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 - fosinopril sodium (MONOPRIL) 40 mg tablet Take 1 tablet by mouth once daily. - atenolol (TENORMIN) 25 mg tablet Take 1 tablet by mouth once daily. - Fenofibrate (LOFIBRA) 160 mg tablet Take 1 tablet by mouth once daily. - omeprazole (PRILOSEC) 40 mg capsule Take 1 capsule by mouth once daily. - nitroglycerin sublingual (NITROQUICK) 0.4 mg SL tablet Dissolve 1 tablet under the tongue as needed. DISSOLVE ON TONGUE FOR CHEST PAIN. IF NO PAIN RELIEF, CALL 911 - magnesium oxide (MAG-OX) 400 mg (241.3 mg magnesium) tablet Take 2 tablets by mouth two times a day. - warfarin (COUMADIN) 5 mg tablet 5mg Mon,Wed and 7.5mg all other days or as directed - atorvastatin (LIPITOR) 40 mg tablet Take 1 tablet by mouth daily at bedtime. For cholesterol. - isosorbide mononitrate ER (IMDUR) 30 mg 24 hr tablet Take 1 tablet by mouth once daily. - levothyroxine (SYNTHROID) 112 mcg tablet Take 1 tablet by mouth once daily. - Cholecalciferol, Vitamin D3, 50 mcg (2,000 unit) cap Take 1 capsule by mouth once daily. - solifenacin (VESICARE) 5 mg tablet Take 5 mg by mouth once daily. - hydrocortisone 2.5 % ointment Apply 1 application to affected area twice daily. - warfarin (COUMADIN) 5 mg tablet Take 5 mg Mon, Wed and 7.5 mg all other days or as directed - blood sugar diagnostic (BLOOD GLUCOSE TEST) test strip Easy Max Test blood sugar(s) one time daily and as needed. Dx: Type 2 DM - Controlled E11.22 N18.3 Insulin: No - Blood-Glucose Meter monitoring kit Glucose Meter of Choice - Kit - Dx: Other DM Code E11.22 N18.3 - meclizine (ANTIVERT) 25 mg tab Take 1 tablet by mouth every 6 hours as needed (dizziness). (prescription given from ER) - Lancets lancets Use as instructed--Check sugars up to once daily. DX: E11.9, Not insulin requiring - aspirin(ECOTRIN LOW STRENGTH 81 MG TAB) Take one(1) tablet daily. - oxymetazoline hcl(AFRIN SINUS NO DRIP 0.05 % NASAL MIST) as necessary Problem List As Of Date 10/06/2024 Noted Resolved Essential hypertension [I10] Mixed hyperlipidemia [E78.2] Postmenopausal Atrophic Vaginitis [N95.2] ALLERGIC RHINITIS NOS [J30.9] 06/06/2009 Acquired hypothyroidism [E0 (more content not included)... Normal [facility] CBC W Auto Differential pane l (Bld)on 10-04-2024 Basophils (Bld) [#/Vol] 0.03 10*3/uL [facility] Basophils/100 WBC (Bld) 0.5 % [facility] Differential cell count method Nom (Bld) Auto [facility] Eosinophils (Bld) [#/Vol] 0.19 10*3/uL [facility] Eosinophils/100 WBC (Bld) 3.0 % [facility] Erythrocyte distribution width (RBC) [Ratio] 14.3 % 11.5 - 15.0 % [facility] Hematocrit (Bld) [Volume fraction] 39.7 % 36.0 - 46.0 % [facility] Hemoglobin (Bld) [Mass/Vol] 12.1 g/dL 11.5 - 15.5 g/dL [facility] Immature granulocytes (Bld) [#/Vol] [facility] Immature granulocytes/100 WBC (Bld) 0.3 % [facility] Lymphocytes (Bld) [#/Vol] 1.75 10*3/uL [facility] Lymphocytes/100 WBC (Bld) 27.3 % [facility] MCH (RBC) [Entitic mass] 27.8 pg 26.0 - 34.0 pg [facility] MCHC (RBC) [Mass/Vol] 30.5 g/dL 30.5 - 36.0 g/dL [facility] MCV (RBC) [Entitic vol] 91.1 fL 80.0 - 100.0 fL [facility] Monocytes (Bld) [#/Vol] 0.66 10*3/uL [facility] Monocytes/100 WBC (Bld) 10.3 % [facility] Neutrophils (Bld) [#/Vol] 3.77 10*3/uL [facility] Neutrophils/100 WBC (Bld) 58.6 % [facility] Nucleated RBC (Bld) [#/Vol] [facility] Nucleated RBC/100 WBC (Bld) [Ratio] 0.0 % /100 WBC [facility] Platelet mean volume (Bld) [Entitic vol] 11.5 fL 9.0 - 12.7 fL [facility] Platelets (Bld) [#/Vol] 286 10*3/uL [facility] RBC (Bld) [#/Vol] 4.36 10*6/uL 3.90 - 5.20 m/uL [facility] WBC (Bld) [#/Vol] 6.42 10*3/uL [facility] Basophils (Bld) [#/Vol] 0.03 10*3/uL Normal <0.11 [facility] 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: Order Comment: Speci men Type: BLOOD SPECIMENOrdering Facility: [facility] Address: [address] [place] [address] Performed By: #### 5 7021-8 ####[facility] LABCLIA [id number] [facility] [place] [address] [place] Basophils/100 WBC (Bld) 0.5 % Normal [facility] 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: Order Comment: Speci men Type: BLOOD SPECIMENOrdering Facility: [facility] Address: [address] [place] [address] Performed By: #### 5 7021-8 ####[facility] LABCLIA [id number] [place] [address] [place] Differential cell count method Nom (Bld) Auto Normal [facility] 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: Order Comment: Speci men Type: BLOOD SPECIMENOrdering Facility: [facility] Address: [address] [place] [address] Performed By: #### 5 7021-8 ####[facility] LABCLIA [id number] [place] [address] [place] Eosinophils (Bld) [#/Vol] 0.19 10*3/uL Normal <0.46 [facility] 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: Order Comment: Speci men Type: BLOOD SPECIMENOrdering Facility: [facility] Address: [address] [place] [address] Performed By: #### 5 7021-8 ####[facility] LABCLIA [id number] [place] [address] [place] Eosinophils/100 WBC (Bld) 3.0 % Normal [facility] 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: Order Comment: Speci men Type: BLOOD SPECIMENOrdering Facility: [facility] Address: [address] [place] [address] Performed By: #### 5 7021-8 ####[facility] LABCLIA [id number] [place] [address] [place] Erythrocyte distribution width (RBC) [Ratio] 14.3 % Normal 11.5-15.0 [facility] 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: Order Comment: Speci men Type: BLOOD SPECIMENOrdering Facility: [facility] Address: [address] [place] [address] Performed By: #### 5 7021-8 ####[facility] LABCLIA [id number] [place] [address] [place] Hematocrit (Bld) [Volume fraction] 39.7 % Normal 36.0-46.0 [facility] 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: Order Comment: Speci men Type: BLOOD SPECIMENOrdering Facility: [facility] Address: [address] [place] [address] Performed By: #### 5 7021-8 ####[facility] LABCLIA [id number] [place] [address] [place] Hemoglobin (Bld) [Mass/Vol] 12.1 g/dL Normal 11.5-15.5 [facility] 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: Order Comment: Speci men Type: BLOOD SPECIMENOrdering Facility: [facility] Address: [address] [place] [address] Performed By: #### 5 7021-8 ####[facility] LABCLIA [id number] [place] [address] [place] Immature granulocytes (Bld) [#/Vol] 10*3/uL Normal <0.10 [facility] 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: Order Comment: Speci men Type: BLOOD SPECIMENOrdering Facility: [facility] Address: [address] [place] [address] Performed By: #### 5 7021-8 ####[facility] LABCLIA [id number] [place] [address] [place] Immature granulocytes/100 WBC (Bld) 0.3 % Normal [facility] 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: Order Comment: Speci men Type: BLOOD SPECIMENOrdering Facility: [facility] Address: [address] [place] [address] Performed By: #### 5 7021-8 ####[facility] LABCLIA [id number] [place] [address] [place] Lymphocytes (Bld) [#/Vol] 1.75 10*3/uL Normal 1.00-4.00 [facility] 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: Order Comment: Speci men Type: BLOOD SPECIMENOrdering Facility: [facility] Address: [address] [place] [address] Performed By: #### 5 7021-8 ####[facility] LABCLIA [id number] [place] [address] [place] Lymphocytes/100 WBC (Bld) 27.3 % Normal [facility] 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: Order Comment: Speci men Type: BLOOD SPECIMENOrdering Facility: [facility] Address: [address] [place] [address] Performed By: #### 5 7021-8 ####[facility] LABCLIA [id number] [place] [address] [place] MCH (RBC) [Entitic mass] 27.8 pg Normal 26.0-34.0 [facility] 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: Order Comment: Speci men Type: BLOOD SPECIMENOrdering Facility: [facility] Address: [address] [place] [address] Performed By: #### 5 7021-8 ####[facility] LABCLIA [id number] [place] [address] [place] MCHC (RBC) [Mass/Vol] 30.5 g/dL Normal 30.5-36.0 [facility] 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: Order Comment: Speci men Type: BLOOD SPECIMENOrdering Facility: [facility] Address: [address] [place] [address] Performed By: #### 5 7021-8 ####[facility] LABCLIA [id number] [place] [address] [place] MCV (RBC) [Entitic vol] 91.1 fL Normal 80.0-100.0 [facility] 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: Order Comment: Speci men Type: BLOOD SPECIMENOrdering Facility: [facility] Address: [address] [place] [address] Performed By: #### 5 7021-8 ####[facility] LABCLIA [id number] [place] [address] [place] Monocytes (Bld) [#/Vol] 0.66 10*3/uL Normal <0.87 [facility] 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: Order Comment: Speci men Type: BLOOD SPECIMENOrdering Facility: [facility] Address: [address] [place] [address] Performed By: #### 5 7021-8 ####[facility] LABCLIA [id number] [place] [address] [place] Monocytes/100 WBC (Bld) 10.3 % Normal [facility] 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: Order Comment: Speci men Type: BLOOD SPECIMENOrdering Facility: [facility] Address: [address] [place] [address] Performed By: #### 5 7021-8 ####[facility] LABCLIA [id number] [place] [address] [place] Neutrophils (Bld) [#/Vol] 3.77 10*3/uL Normal 1.45-7.50 [facility] 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: Order Comment: Speci men Type: BLOOD SPECIMENOrdering Facility: [facility] Address: [address] [place] [address] Performed By: #### 5 7021-8 ####[facility] LABCLIA [id number] [place] [address] [place] Neutrophils/100 WBC (Bld) 58.6 % Normal [facility] 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: Order Comment: Speci men Type: BLOOD SPECIMENOrdering Facility: [facility] Address: [address] [place] [address] Performed By: #### 5 7021-8 ####[facility] LABCLIA [id number] [place] [address] [place] Nucleated RBC (Bld) [#/Vol] 10*3/uL Normal <0.01 [facility] 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: Order Comment: Speci men Type: BLOOD SPECIMENOrdering Facility: [facility] Address: [address] [place] [address] Performed By: #### 5 7021-8 ####[facility] LABIA [id number] [place] [address] [place] Nucleated RBC/100 WBC (Bld) [Ratio] 0.0 /100 WBC Normal [facility] 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: Order Comment: Speci men Type: BLOOD SPECIMENOrdering Facility: [facility] Address: [address] [place] [address] Performed By: #### 5 7021-8 ####[facility] LABIA [id number] [place] [address] [place] Platelet mean volume (Bld) [Entitic vol] 11.5 fL Normal 9.0-12.7 [facility] 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: Order Comment: Speci men Type: BLOOD SPECIMENOrdering Facility: [facility] Address: [address] [place] [address] Performed By: #### 5 7021-8 ####[facility] LABIA [id number] [place] [address] [place] Platelets (Bld) [#/Vol] 286 10*3/uL Normal 150-400 [facility] 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: Order Comment: Speci men Type: BLOOD SPECIMENOrdering Facility: [facility] Address: [address] [place] [address] Performed By: #### 5 7021-8 ####[facility] LABIA [id number] [place] [address] [place] RBC (Bld) [#/Vol] 4.36 10*6/uL Normal 3.90-5.20 [facility] 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: Order Comment: Speci men Type: BLOOD SPECIMENOrdering Facility: [facility] Address: [address] [place] [address] Performed By: #### 5 7021-8 ####[facility] LABCLIA [id number] [address] [address] [place] WBC (Bld) [#/Vol] 6.42 10*3/uL Normal 3.70-11.00 [facility] 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: Order Comment: Speci men Type: BLOOD SPECIMENOrdering Facility: [facility] Address: [address] [place] [place] [id number] Performed By: #### 5 7021-8 ####[facility] LABCLIA [id number] [address] [address] [place] CNOVon 10-04-2024 CNOV Office Visit (INTMWS ) WESTLEYYOBANI MARINA ([id number]) 1945 F Date Time Provider Department 10/04/24 1:40 PM HERBERT JAY INTMWS During your visit today, we recorded the following information about you: Temperature Pulse Respiration Blood pressure 97.5 degrees 53/minute 16/minute 107/58 Weight 110 kg Herbert Jay APRN.GARDENING SUPERVISOR 10/04/2024 2:21 PM Signed SUBJECTIVE: Shingrix Vaccine(2 of 3) due on 04/09/2012 RSV Vaccine(1 - 1-dose 75+ series) Never done Diabetic Foot Exam due on 03/20/2024 Dilated Retinal Exam due on 06/19/2024 Influenza Vaccine(1) due on 08/01/2024 Covid-19 Vaccine(2023- season) due on 08/01/2024 HbA1C due on 09/18/2024 JACKSON Hammond Douglas Westleyismael is a 79 year old female. 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 She called the office earlier today and reported the following (excerpted): Patient calls for diarrhea. Nurse triage recommends appointment to be seen within 24 hours. Patient agreeable. Appointment scheduled. Care advice reviewed. Patient verbalizes understanding. Reason for Disposition [1] SEVERE diarrhea (e.g., 7 or more times / day more than normal) AND [2] age > 60 years Answer Assessment - Initial Assessment Questions 1. DIARRHEA SEVERITY: - SEVERE (SCALE 8-10; OR WORST POSSIBLE): Increase of 7 or more stools daily over normal; moderate increase in ostomy output; incontinence. 2. ONSET: the past week 3. STOOL DESCRIPTION: Mostly liquid. Once in a while a little more solid. 4. VOMITING: No vomiting 5. ABDOMEN PAIN: NA 6. ABDOMEN PAIN SEVERITY: NA 7. ORAL INTAKE:Drinking about 68 oz of fluids mostly water. 8. HYDRATION: Patient reports she is usually somewhat dehydrated. Voided last time this morning. 9. EXPOSURE: Patient was in [place] vacationing when diarrhea started. Doesn't recall eating anything that could have caused diarrhea and nothing spoiled. No recent foreign travel. Patient did try imodium but didn't seem to make a difference. 10. ANTIBIOTIC USE: No 11. OTHER SYMPTOMS: No fever, blood in stool possibly x 1 yesterday. Reports the toilet bowel water looked pink but none since. 12. : No Protocols used: [id number] She reports being on vacation in [place]. She noted that she started with loose stools last Friday. Has persisted and progressively worse/more frequent. Notes not eating much. Fluid intake, trying to push but not getting 64 oz/day in Duration: 6 to 7 days Onset: one week, gradual onset Sick contacts: no Fever:no Heartburn: Reflux: no Abdominal pain: no Nausea: no Vomiting: no Diarrhea: x 7 days Constipation: BRBPR: no Black tarry: no No recent hospitalization or antibiotic use is known. She has lost 11 pounds of weight in the last week. She noted pink-tinge on TP with BM a couple times but no blood. Review of Systems Constitutional: Negative. Respiratory: Negative. Endocrine: Negative. Musculoskeletal: Positive for arthralgias, back pain and gait problem. Objective BP 107/58 Pulse (!) 53 Temp 36.4 ?C (97.5 ?F) Resp 16 Wt 110 kg (242 lb 8.1 oz) BMI 42.28 kg/m? Physical Exam Vitals and nursing note reviewed. Constitutional: Appearance: Normal appearance. HENT: Head: Normocephalic and atraumatic. Eyes: Conjunctiva/sclera: Conjunctivae normal. Neck: Thyroid: No thyromegaly. Vascular: Normal carotid pulses. No JVD. Cardiovascular: Rate and Rhythm: Normal rate and regular rhythm. Pulses: Carotid pulses are 2+ on the right side and 2+ on the left side. Radial pulses are 2+ on the right side and 2+ on the left side. Heart sounds: Normal heart sounds. Pulmonary: Effort: Pulmonary effort is normal. Breath sounds: Normal breath sounds. Abdominal: General: Bowel sounds are normal. There is no distension. Palpations: Abdomen is soft. There is no mass. Tenderness: There is no abdominal tenderness. There is no guarding or rebound. Musculoskeletal: Lumbar back: Tenderness present. Right lower leg (more content not included)... Normal [facility] Comprehensive metabolic 2000 panelon 10-04-2024 Albumin [Mass/Vol] 4.0 g/dL Normal 3.9-4.9 [facility] 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: Order Comment: Speci men Type: BLOOD SPECIMENOrdering Facility: [facility] Address: [facility] [place] [address] Performed By: #### 2 4323-8, 3016-3 ####[facility] LABCLIA [id number] [place] [address] [place] ALP [Catalytic activity/Vol] 51 U/L Normal 34-123 [facility] 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: Order Comment: Speci men Type: BLOOD SPECIMENOrdering Facility: [facility] Address: [address] [place] [id number] Performed By: #### 2 4323-8, 6-3 ####[facility] LABCLIA [id number] [place] [id number] [place] ALT [Catalytic activity/Vol] 17 U/L Normal 7-38 [facility] 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: Order Comment: Speci men Type: BLOOD SPECIMENOrdering Facility: [facility] Address: [address] [place] [id number] Performed By: #### 2 4323-8, 3015-3 ####[facility] LABCLIA [id number] [place] [address] [place] Anion gap [Moles/Vol] 12 mmol/L Normal 8-15 [facility] 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: Order Comment: Speci men Type: BLOOD SPECIMENOrdering Facility: [facility] Address: [address] [place] [id number] Performed By: #### 2 4323-8, 6-3 ####[facility] LABCLIA [id number] [place] [address] [place] AST [Catalytic activity/Vol] 22 U/L Normal 13-35 [facility] 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: Order Comment: Speci men Type: BLOOD SPECIMENOrdering Facility: [facility] Address: [address] [place] [id number] Performed By: #### 2 4323-8, 6-3 ####[facility] LABCLIA [id number] [place] [id number] [place] Bilirubin [Mass/Vol] 0.7 mg/dL Normal 0.2-1.3 [facility] 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: Order Comment: Speci men Type: BLOOD SPECIMENOrdering Facility: [facility] Address: [address] [place], [place] [address] Performed By: #### 2 4323-8, 3016-3 ####[facility] LABCLIA [id number] [place] [id number] [place] Calcium [Mass/Vol] 10.1 mg/dL Normal 8.5-10.2 [facility] 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: Order Comment: Speci men Type: BLOOD SPECIMENOrdering Facility: [facility] Address: [address] [place] [address] Performed By: #### 2 4323-8, 3015-3 ####[facility] LABCLIA [id number] [place] [address] [place] Chloride [Moles/Vol] 105 mmol/L Normal 98-107 [facility] 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: Order Comment: Speci men Type: BLOOD SPECIMENOrdering Facility: [facility] Address: [address] [place] [address] Performed By: #### 2 432-8, 3015-3 ####[facility] LABCLIA [id number] [place] [address] [place] CO2 [Moles/Vol] 22 mmol/L Normal 22-30 [facility] 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: Order Comment: Speci men Type: BLOOD SPECIMENOrdering Facility: [facility] Address: [address] [place] [address] Performed By: #### 2 4323-8, 3015-3 ####[facility] LABCLIA [id number] [place] [id number] [place] Creatinine [Mass/Vol] 1.51 mg/dL High 0.58-0.96 [facility] 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: Order Comment: Speci men Type: BLOOD SPECIMENOrdering Facility: [facility] Address: [address] [place] [address] Performed By: #### 2 4323-8, 6-3 ####[facility] LABCLIA [id number] [place] [id number] [place] Creatinine and Glomerular filtration rate.predicted panel (S/P/Bld) 35 mL/min/1.73m??? Low >=60 [facility] 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: Order Comment: Unique bowen Type: BLOOD SPECIMENOrdering Facility: [facility] Address: [address] [place] [address] Result Comment: Brenda mated Glomerular Filtration Rate (eGFR) is calculated using the 2020 CKD-EPI creatinine equation. This equation utilizes serum creatinine, sex, and age as parameters. The creatinine assay has traceable calibration to isotope dilution-mass spectrometry. Refer to KDIGO guidelines for clinical interpretation. In patients with unstable renal function, e.g. those with acute kidney injury, the eGFR may not accurately reflect actual GFR. Performed By: #### 2 4323-8, 6-3 ####[facility] LABCLIA [id number] [place] [address] [place] Glucose [Mass/Vol] 114 mg/dL High 74-99 [facility] 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: Order Comment: Unique bowen Type: BLOOD SPECIMENOrdering Facility: [facility] Address: [address] [place] [address] Result Comment: The [place] Diabetes Association (ADA) provides guidance for cutoff values for fasting glucose and random glucose. The ADA defines fasting as no caloric intake for at least 8 hours. Fasting plasma glucose results between 100 to 125 mg/dL indicate increased risk for diabetes (prediabetes). Fasting plasma glucose results greater than or equal to 126 mg/dL meet the criteria for diagnosis of diabetes. In the absence of unequivocal hyperglycemia, results should be confirmed by repeat testing. In a patient with classic symptoms of hyperglycemia or hyperglycemic crisis, random plasma glucose results greater than or equal to 200 mg/dL meet the criteria for diagnosis of diabetes. Reference: Standards of Medical Care in Diabetes 2016, [place] [employer]. Diabetes Care. 2016.39(Suppl 1). Performed By: #### 2 4323-8, 3016-3 ####[facility] LABCLIA [id number] [place] [address] [place] Potassium [Moles/Vol] 4.2 mmol/L Normal 3.7-5.1 [facility] 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: Order Comment: Speci men Type: BLOOD SPECIMENOrdering Facility: [facility] Address: [address] [place] [address] Performed By: #### 2 4323-8, 3015-3 ####[facility] LABCLIA [id number] [place] [address] [place] Protein [Mass/Vol] 6.7 g/dL Normal 6.3-8.0 [facility] 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: Order Comment: Speci men Type: BLOOD SPECIMENOrdering Facility: [facility] Address: [address] [place] [address] Performed By: #### 2 4323-8, 3015-3 ####[facility] LABCLIA [id number] [place] [address] [place] Sodium [Moles/Vol] 139 mmol/L Normal 136-144 [facility] 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: Order Comment: Speci men Type: BLOOD SPECIMENOrdering Facility: [facility] Address: [address] [place] [address] Performed By: #### 2 4323-8, 3 ####[facility] LABCLIA [id number] [place] [address] [place] Urea nitrogen [Mass/Vol] 25 mg/dL High 7-21 [facility] 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: Order Comment: Speci men Type: BLOOD SPECIMENOrdering Facility: [facility] Address: [address] [place] [address] Performed By: #### 2 4323-8, 6-3 ####[facility] LABCLIA [id number] [place] [id number] [place] PT panel Coag (PPP)on 2023 INR Coag (PPP) [Relative time] 1.6 {INR} High 0.9 - 1.3 [facility] 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: Vitamin K Antagonist (VKA) Therapeutic Range: INR 2 to 3 (Target INR of 2.5) Note: For patients treated with VKA drugs, such as warfarin, the [place] [employer] 2012 Guideline recommends a therapeutic INR range of 2 to 3 (target INR of 2.5). This recommendation includes high-risk patients with antiphospholipid syndrome with previous arterial or venous thromboembolism, current-generation mechanical or bioprosthetic aortic heart valve replacement. Note: Patients with mechanical aortic valve replacement and additional risk factors for thromboembolic events (atrial fibrillation, previous thromboembolism, LV dysfunction, hypercoagulable conditions) or an older generation mechanical AVR (i.e., ball in-Cage) or any mechanical MVR should have a INR therapeutic range of 2.5 to 3.5 (target INR of 3). tyler Horta. Chest 2012, 141:7S-47S Roberto CABRALES et radu. [facility] 2017, 70: 252-289 Interpretation and review of laboratory results Abnormal [facility] PT Coag (PPP) [Time] 16.6 s High [facility] INR Coag (PPP) [Relative time] 1.6 {INR} High 0.9-1.3 [facility] 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: Order Comment: Speci men Type: BLOOD SPECIMENOrdering Facility: [facility] Address: [address] [place] [address] Result Comment: Shantell min K Antagonist (VKA) Therapeutic Range: INR 2 to 3 (Target INR of 2.5) Note: For patients treated with VKA drugs, such as warfarin, the [place] [employer] 2012 Guideline recommends a therapeutic INR range of 2 to 3 (target INR of 2.5). This recommendation includes high-risk patients with antiphospholipid syndrome with previous arterial or venous thromboembolism, current-generation mechanical or bioprosthetic aortic heart valve replacement. Note: Patients with mechanical aortic valve replacement and additional risk factors for thromboembolic events (atrial fibrillation, previous thromboembolism, LV dysfunction, hypercoagulable conditions) or an older generation mechanical AVR (i.e., ball in-Cage) or any mechanical MVR should have a INR therapeutic range of 2.5 to 3.5 (target INR of 3). tyler Horta. Chest 2012, 141:7S-47S Roberto CABRALES et al. [facility] 2017, 70: 252-289 Performed By: #### 3 4528-0 ####[facility] LABIA [id number] [place] [id number] [place] PT Coag (PPP) [Time] 16.6 s High 9.7-13.0 [facility] 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: Order Comment: Speci men Type: BLOOD SPECIMENOrdering Facility: [facility] Address: [address] [place] [address] Performed By: #### 3 [id number] ####[facility] [id number] [place] [address] [place] TSH SerPl-aCncon 10-04-2024 TSH Qn 1.850 m[IU]/L Normal 0.270-4.20 0 [facility] 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: Order Comment: Speci men Type: BLOOD SPECIMENOrdering Facility: [facility] Address: [address] [place] [address] Performed By: #### 2 [id number], 3016-3 ####[facility] [id number] [place] [address] [place] Stress Reporton 09-06-2024 Stress Report [facility] [address] [place] [id number] MR#: [id number] Acct: [id number] Name: YOBANI REID Rep #: [id number] : 1945 79 From: Augustin Moreira MD Primary Care: Dr. Jose De Jesus Harrington MD Status: REG I Referring Dr: Augustin Moreira MD Sex: F C Stress Test Report Date: 09/03/2024 Procedure: Pharmacologic stress nuclear imaging study Indications: Chest pain Consent: Per the patient Procedure: The patient underwent pharmacologic (Regadenoson 0.4mg ) evaluation with a peak heart rate of 76 beats per minute (53%predicted maximal heart rate) and a peak blood pressure of 132/72 mmHg. The baseline ECG demonstrated sinus rhythm, right bundle branch block, inferior lateral ST depressions. The peak pharmacologic ECG demonstrated no diagnostic changes secondary to baseline abnormalities. There were no cardiac dysrhythmias pretest, during pharmacologic infusion, or recovery. There was no complaint of chest discomfort during pharmacologic infusion or recovery. The patient was injected with 14.8 millicuries of technetium 99m Cardiolite and subsequently rest SPECT Cardiolite nuclear imaging was obtained in the horizontal long, vertical long, and short axis views. The patient underwent pharmacologic (Regadenoson) evaluation. The patient was injected with 44.4 millicuries of technetium 99m Cardiolite and subsequently stress SPECT Cardiolite nuclear imaging was obtained in the horizontal long, vertical long, and short axis views. A gated Cardiolite study at peak stress was obtained. The examination was stopped secondary to completion of protocol. Rest and stress SPECT Cardiolite nuclear imaging status post realignment, normalization, and attenuation correction demonstrate no fixed or reversible perfusion defects. There is end systolic thickening and brightening. The gated Cardiolite study demonstrates myocardial thickening and inward wall motion. The reported LVEF is 77%. Impression: 1. Pharmacologic (Regadenoson) evaluation 2. Peak pharmacologic ECG with no diagnostic changes. 3. There were no cardiac dysrhythmias pretest, during pharmacologic infusion, or recovery. 5. Rest and stress SPECT Cardiolite nuclear imaging demonstrate relative uniform tracer uptake and myocardial perfusion appearing within normal limits. 6. The gated Cardiolite study reports an LVEF of 77%. This note was generated with Raizl[employer]ation software. It may contain incorrect words, spelling, and punctuation that were not noted in checking the note before signing. 09/06/2453 Date ____ Augustin Moreira MD CC: Dr. Augustin Moreira MD; Dr. Jose De Jesus Harrington MD Date Dictated: 09/06/24850 Date Transcribed: 09/06/24850 Straight Line Press Setter: JAME Signed Normal [facility] INR (POC)on 08-05-2024 INR Coag (PPP) [Relative time] 3.4 {INR} High 0.8 - 1.2 [facility] Internal Quality Check Acceptable [facility] Interpretation and review of laboratory results Abnormal [facility] Location:[facility], [address], [place], [address] [facility] POINT OF CARE [facility] Basophil percentageOrdered B y: Jennifer Black on 10-09-2023 Chloride [Moles/Vol] 109 mmol/L 98-107 [facility] Glucose [Mass/Vol] 107 mg/dL 74-106 [facility] 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: Fasting Glucose resu lt from 100 to 125 mg/dL suggests IMPAIRED HOMEOSTASIS per A.D.A. criteria. Potassium [Moles/Vol] 4.5 mmol/L 3.5-5.1 [facility] Sodium [Moles/Vol] 140 mmol/L 136-145 [facility] Blood hemoglobin measurement (mass/volume)Ordered By: Jennifer Wayne on 10-09-2023 Hemoglobin (Bld) [Mass/Vol] 9.3 g/dL 12.0-15.0 [facility] Hematocrit Auto (Bld) [Volum e fraction]Ordered By: Jennifer Black on 10-09-2023 Hematocrit (Bld) [Volume fraction] 31.7 % 37-47 [facility] INR in Blood by Coagulation assayOrdered By: Jennifer Black on 10-09-2023 INR Coag (Bld) [Relative time] 2.2 {INR} [facility] Laboratory - Chemistry and C hemistry - challengeOrdered By: Jennifer Black on 10-09-2023 CO2 [Moles/Vol] 28.0 mmol/L 21.0-32.0 [facility] Urea nitrogen/Creatinine [Mass ratio] 26.4 mg/mg 10-20 [facility] Laboratory - CoagulationOrde red By: Jennifer Black on 10-09-2023 PT Coag (PPP) [Time] 24.3 s 11.7-14.9 [facility] No Panel InformationOrdered By: Jennifer Black on 10-09-2023 Estimated Creatinine Clearance Calc 34.16 ml/min [facility] Estimated GFR (MDRD) Amer 56 mL/min >60 [facility] 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: GFR Calc Estimated GFR (MDRD) Non-Af Amer 46 mL/min >60 [facility] 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: Non- GFR Calc Serum or plasma calcium tiffanie urement (mass/volume)Ordered By: Jennifer Black on 10-09-2023 Calcium [Mass/Vol] 9.4 mg/dL 8.5-10.1 [facility] Serum or plasma creatinine m easurement (mass/volume)Ordered By: Jennifer Black on 10-09-2023 Creatinine [Mass/Vol] 1.21 mg/dL 0.55-1.02 [facility] 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: The validity of the calculated GFR & GFRAA in patients over 70 years has not been determined. Clinical correlation is essential. Serum or plasma urea nitroge n measurement (mass/volume)Ordered By: Jennifer Black on 10-09-2023 Urea nitrogen [Mass/Vol] 32 mg/dL 7-18 [facility] Thin prep Papanicolaou smear with manual screeningOrdered By: Jennifer Black on 10-09-2023 Thin prep Papanicolaou smear with manual screening 3 5-15 [facility] Stool gastrointestinal hemog lobin detection by immunologic methodOrdered By: Jennifer Black on 10-03-2023 Lower GI hemoglobin IA Ql (Stl) [facility] Basophil percentageOrdered B y: Jennifer Black on 10-01-2023 Basophil percentage 2.0 mg/dL 2.5-4.9 [facility] WBC (Bld) [#/Vol] 8.6 10*3/uL 4.4-11.0 [facility] Blood erythrocytes count (nu mber/volume)Ordered By: Jennifer Black on 10-01-2023 RBC (Bld) [#/Vol] 3.26 10*6/uL 4.2-5.4 [facility] Blood platelet mean volumeOr dered By: Jennifer Black on 10-01-2023 Platelet mean volume (Bld) [Entitic vol] 10.7 fL 6.2-12.0 [facility] Determination of erythrocyte mean corpuscular volume (MCV)Ordered By: Jennifer Balck on 10-01-2023 MCV (RBC) [Entitic vol] 90.8 fL 81-99 [facility] Laboratory - Chemistry and C hemistry - challengeOrdered By: Jennifer Black on 10-01-2023 Free T4 [Mass/Vol] 1.17 ng/dL 0.76-1.46 [facility] Laboratory - Hematology and Cell countsOrdered By: Jennifer Black on 10-01-2023 Erythrocyte distribution width (RBC) [Entitic vol] 49.9 fL 35.1-43.9 [facility] Erythrocyte distribution width (RBC) [Ratio] 15.1 % 11.6-14.6 [facility] MCH (RBC) [Entitic mass] 27.0 pg 27.0-32.0 [facility] MCHC Auto (RBC) [Mass/Vol]Or dered By: Jennifer Black on 10-01-2023 MCHC (RBC) [Mass/Vol] 29.7 g/dL 32-36 [facility] No Panel InformationOrdered By: Jennifer Wayne on 10-01-2023 Thyroid Stimulating Hormone (TSH) 4.37 uIU/mL 0.358-3.74 [facility] Platelets bldOrdered By: Sujata Black on 10-01-2023 Platelets (Bld) [#/Vol] 382 10*3/uL 150-450 [facility] Whole blood hemoglobin A1c/t otal hemoglobin ratio (mass fraction)Ordered By: Jennifer Black on 10-01-2023 HbA1c (Bld) [Mass fraction] 6.0 % 3.8-5.6 [facility] 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: Normal < 5.7 % Predi abetic 5.7 - 6.4 % Diabetic >or= 6.5 % Please note range changes. Glucose Glucometer (BldC) [M ass/Vol]Ordered By: Jennifer Wayne on 09-30-2023 Glucose [Mass/Vol] 117 mg/dL 74-106 [facility] 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: MANAGEMENT OF PATIEN T CARE PER NURSING PROTOCOL Basophil percentageOrdered B y: Jennifer Black on 09-27-2023 Bilirubin [Mass/Vol] 0.60 mg/dL 0.20-1.00 [facility] 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: For patients on eltr ombopag therapy, use of Dimension [place] TBIL is not recommended. Protein [Mass/Vol] 7.1 g/dL 6.4-8.2 [facility] Laboratory - Chemistry and C hemistry - challengeOrdered By: Jennifer Black on 09-27-2023 ALP [Catalytic activity/Vol] 38 U/L 45-117 [facility] ALT [Catalytic activity/Vol] 25 U/L 13-56 [facility] Globulin (S) [Mass/Vol] 3.8 g/dL 2.2-4.2 [facility] Magnesium [Mass/Vol] 2.0 mg/dL 1.6-2.6 [facility] Serum or plasma IgA measurem ent (mass/volume)Ordered By: Jennifer Wayne on 09-27-2023 IgA [Mass/Vol] 108 mg/dL 64-422 [facility] 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: Performed at: [address] [id number] Director: Brayan Aldridge PhD, Phone: [phone] Serum or plasma albumin tiffanie urement (mass/volume)Ordered By: Jennifer Black on 09-27-2023 Albumin [Mass/Vol] 3.3 g/dL 3.2-5.0 [facility] Serum or plasma albumin/glob ulin mass ratioOrdered By: Jennifer Black on 09-27-2023 Albumin/Globulin [Mass ratio] 0.9 {ratio} 0.9-2.4 [facility] Serum tissue transglutaminas e IgA antibody assay (units/volume)Ordered By: Jennifer Wayne on 09-27-2023 tTG IgA Qn (S) <2 U/mL 0-3 [facility] 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: Negative 0 - 3 Weak Positive 4 - 10 Positive >10 Tissue Transglutaminase (tTG) has been identified as the endomysial antigen. Studies have demonstr- ated that endomysial IgA antibodies have over 99% specificity for gluten sensitive enteropathy. Thin prep Papanicolaou smear with manual screeningOrdered By: Jennifer Black on 09-27-2023 Thin prep Papanicolaou smear with manual screening 24 U/L 15-37 [facility] Absolute lymphocyte countOrd ered By: Yonatan Portillo on 09-26-2023 Lymphocytes Auto (Unsp spec) [#/Vol] 1.74 10*3/uL 0.83-4.51 [facility] Basophil percentageOrdered B y: Yonatan Portillo on 09-26-2023 Basophils/100 WBC (Bld) 0.3 % 0-1 [facility] Eosinophils/100 WBC (Bld) 0.7 % 0-5 [facility] Neutrophils (Bld) [#/Vol] 7.9 10*3/uL 2.0-7.7 [facility] Neutrophils/100 WBC (Bld) 74.9 % 47-70 [facility] WBC (Bld) [#/Vol] 10.6 10*3/uL 4.4-11.0 [facility] Bilirubin [Mass/Vol] 0.60 mg/dL 0.20-1.00 [facility] 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: For patients on eltr ombopag therapy, use of Dimension [place] TBIL is not recommended. Chloride [Moles/Vol] 109 mmol/L 98-107 [facility] Glucose [Mass/Vol] 120 mg/dL 74-106 [facility] 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: Fasting Glucose resu lt from 100 to 125 mg/dL suggests IMPAIRED HOMEOSTASIS per A.D.A. criteria. Potassium [Moles/Vol] 3.9 mmol/L 3.5-5.1 [facility] Protein [Mass/Vol] 6.9 g/dL 6.4-8.2 [facility] Sodium [Moles/Vol] 136 mmol/L 136-145 [facility] Blood erythrocytes count (nu mber/volume)Ordered By: Yonatan Portillo on 09-26-2023 RBC (Bld) [#/Vol] 3.87 10*6/uL 4.2-5.4 [facility] Blood hemoglobin measurement (mass/volume)Ordered By: Yonatan Portillo on 09-26-2023 Hemoglobin (Bld) [Mass/Vol] 10.5 g/dL 12.0-15.0 [facility] Blood lymphocytes/100 leukoc ytesOrdered By: Yonatan Portillo on 09-26-2023 Lymphocytes/100 WBC (Bld) 16.4 % 19-41 [facility] Blood monocytes/100 leukocyt esOrdered By: Yonatan Portillo on 09-26-2023 Monocytes/100 WBC (Bld) 7.4 % 0-10 [facility] Blood platelet mean volumeOr dered By: Yonatan Portillo on 09-26-2023 Platelet mean volume (Bld) [Entitic vol] 11.1 fL 6.2-12.0 [facility] Determination of erythrocyte mean corpuscular volume (MCV)Ordered By: Yonatan Portillo on 09-26-2023 MCV (RBC) [Entitic vol] 88.9 fL 81-99 [facility] Glucose Glucometer (BldC) [M ass/Vol]Ordered By: Radha Arriaga on 09-26-2023 Glucose [Mass/Vol] 134 mg/dL 74-106 [facility] 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: MANAGEMENT OF PATIEN T CARE PER NURSING PROTOCOL Hematocrit Auto (Bld) [Volum e fraction]Ordered By: Yonatan Portillo on 09-26-2023 Hematocrit (Bld) [Volume fraction] 34.4 % 37-47 [facility] INR in Blood by Coagulation assayOrdered By: Yonatan Portillo on 09-26-2023 INR Coag (Bld) [Relative time] 2.7 {INR} [facility] Laboratory - Chemistry and C hemistry - challengeOrdered By: Yonatan Portillo on 09-26-2023 ALP [Catalytic activity/Vol] 39 U/L 45-117 [facility] ALT [Catalytic activity/Vol] 24 U/L 13-56 [facility] CO2 [Moles/Vol] 24.0 mmol/L 21.0-32.0 [facility] Globulin (S) [Mass/Vol] 3.6 g/dL 2.2-4.2 [facility] Magnesium [Mass/Vol] 2.1 mg/dL 1.6-2.6 [facility] Urea nitrogen/Creatinine [Mass ratio] 22.6 mg/mg 10-20 [facility] Laboratory - CoagulationOrde red By: Yonatan Portillo on 09-26-2023 PT Coag (PPP) [Time] 29.1 s 11.7-14.9 [facility] Laboratory - Hematology and Cell countsOrdered By: Yonatan Portillo on 09-26-2023 Erythrocyte distribution width (RBC) [Entitic vol] 47.6 fL 35.1-43.9 [facility] Erythrocyte distribution width (RBC) [Ratio] 14.6 % 11.6-14.6 [facility] Immature granulocytes/100 WBC (Bld) 0.300 % 0.0-0.9 [facility] 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: IG% - Immature Granu locytes (promyelocytes, myelocytes and metamyelocytes) > 1% indicates that a LEFT SHIFT is Present. MCH (RBC) [Entitic mass] 27.1 pg 27.0-32.0 [facility] Nucleated RBC/100 WBC (Bld) [Ratio] 0 % 0-5 [facility] MCHC Auto (RBC) [Mass/Vol]Or dered By: Yonatan Portillo on 09-26-2023 MCHC (RBC) [Mass/Vol] 30.5 g/dL 32-36 [facility] No Panel InformationOrdered By: Jennifer Black on 09-26-2023 Stool Neutral Fats Normal . [facility] 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: Normal (<60 Droplets /HPF) No Panel InformationOrdered By: Yonatan Portillo on 09-26-2023 Vitamin D 25-Hydroxy 30.8 ng/mL [facility] 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: Vitamin D 25(OH) Sta tus Range Deficiency <20 ng/mL (50nmol/L) Insufficiency 20 - 30 ng/mL (50 - 75 nmol/L) Sufficiency 30 - 100 ng/mL (75 - 250 nmol/L) Toxicity >100 ng/mL (>250 nmol/L) Estimated Creatinine Clearance Calc 34.43 ml/min [facility] Estimated GFR (MDRD) Amer 59 mL/min >60 [facility] 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: GFR Calc Estimated GFR (MDRD) Non-Af Amer 49 mL/min >60 [facility] 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: Non- GFR Calc Platelets bldOrdered By: Modesto Portillo on 09-26-2023 Platelets (Bld) [#/Vol] 317 10*3/uL 150-450 [facility] Qualitative fecal fat or lip idsOrdered By: Jennifer Black on 09-26-2023 Fat Ql (Stl) Normal . [facility] Comment on above: Normal (<100 Droplet s/HPF)Performed at: - [address] [id number] Director: Brayan Aldridge PhD, Phone: [phone] Serum or plasma albumin tiffanie urement (mass/volume)Ordered By: Yonatan Portillo on 09-26-2023 Albumin [Mass/Vol] 3.3 g/dL 3.2-5.0 [facility] Serum or plasma albumin/glob ulin mass ratioOrdered By: Yonatan Portillo on 09-26-2023 Albumin/Globulin [Mass ratio] 0.9 {ratio} 0.9-2.4 [facility] Serum or plasma calcitriol m easurement (mass/volume)Ordered By: Yonatan Portillo on 09-26-2023 1,25-dihydroxyvitam in D3 [Mass/Vol] 37.2 pg/mL 24.8-81.5 [facility] Comment on above: Performed at: [facility] - [address] [id number] Director: Tanner Guajardo MD, Phone: [phone] Serum or plasma calcium tiffanie urement (mass/volume)Ordered By: Yonatan Portillo on 09-26-2023 Calcium [Mass/Vol] 9.2 mg/dL 8.5-10.1 [facility] Serum or plasma creatinine m easurement (mass/volume)Ordered By: Yonatan Portillo on 09-26-2023 Creatinine [Mass/Vol] 1.15 mg/dL 0.55-1.02 [facility] Comment on above: The validity of the calculated GFR & GFRAA in patients over 70 years has not been determined. Clinical correlation is essential. Serum or plasma urea nitroge n measurement (mass/volume)Ordered By: Yonatan Portillo on 09-26-2023 Urea nitrogen [Mass/Vol] 26 mg/dL 7-18 [facility] Thin prep Papanicolaou smear with manual screeningOrdered By: Yonatan Portillo on 09-26-2023 Thin prep Papanicolaou smear with manual screening 15 U/L 15-37 [facility] Thin prep Papanicolaou smear with manual screening 3 5-15 [facility] Absolute lymphocyte countOrd ered By: Alfredito Bowie on 09-25-2023 Lymphocytes Auto (Unsp spec) [#/Vol] 1.25 10*3/uL 0.83-4.51 [facility] Basophil percentageOrdered B y: Alfredito Bowie on 09-25-2023 Basophils/100 WBC (Bld) 0.4 % 0-1 [facility] Chloride [Moles/Vol] 128 mmol/L 98-107 [facility] Comment on above: Critical Result(s) C alled at: 21:37:57 09/25/2023 by: Ledy Denise to parr. Results read back by same. Eosinophils/100 WBC (Bld) 0.1 % 0-5 [facility] Glucose [Mass/Vol] 95 mg/dL 74-106 [facility] Neutrophils (Bld) [#/Vol] 16.1 10*3/uL 2.0-7.7 [facility] Neutrophils/100 WBC (Bld) 87.3 % 47-70 [facility] Potassium [Moles/Vol] 2.8 mmol/L 3.5-5.1 [facility] Sodium [Moles/Vol] 147 mmol/L 136-145 [facility] WBC (Bld) [#/Vol] 18.4 10*3/uL 4.4-11.0 [facility] Blood erythrocytes count (nu mber/volume)Ordered By: Alfredito Bowie on 09-25-2023 RBC (Bld) [#/Vol] 4.39 10*6/uL 4.2-5.4 [facility] Blood hemoglobin measurement (mass/volume)Ordered By: Alfredito Bowie on 09-25-2023 Hemoglobin (Bld) [Mass/Vol] 12.0 g/dL 12.0-15.0 [facility] Blood lymphocytes/100 leukoc ytesOrdered By: Alfredito Bowie on 09-25-2023 Lymphocytes/100 WBC (Bld) 6.8 % 19-41 [facility] Blood monocytes/100 leukocyt esOrdered By: Alfredito Bowie on 09-25-2023 Monocytes/100 WBC (Bld) 4.7 % 0-10 [facility] Blood platelet mean volumeOr dered By: Alfredito Bowie on 09-25-2023 Platelet mean volume (Bld) [Entitic vol] 10.9 fL 6.2-12.0 [facility] Determination of erythrocyte mean corpuscular volume (MCV)Ordered By: Alfredito Bowie on 09-25-2023 MCV (RBC) [Entitic vol] 88.6 fL 81-99 [facility] Hematocrit Auto (Bld) [Volum e fraction]Ordered By: Alfredito Bowie on 09-25-2023 Hematocrit (Bld) [Volume fraction] 38.9 % 37-47 [facility] Laboratory - Chemistry and C hemistry - challengeOrdered By: Alfredito Bowie on 09-25-2023 CO2 [Moles/Vol] 15.0 mmol/L 21.0-32.0 [facility] Urea nitrogen/Creatinine [Mass ratio] 29.8 mg/mg 10-20 [facility] Laboratory - Hematology and Cell countsOrdered By: Alfredito Bowie on 09-25-2023 Erythrocyte distribution width (RBC) [Entitic vol] 46.5 fL 35.1-43.9 [facility] Erythrocyte distribution width (RBC) [Ratio] 14.4 % 11.6-14.6 [facility] Immature granulocytes/100 WBC (Bld) 0.700 % 0.0-0.9 [facility] Comment on above: IG% - Immature Granu locytes (promyelocytes, myelocytes and metamyelocytes) > 1% indicates that a LEFT SHIFT is Present. MCH (RBC) [Entitic mass] 27.3 pg 27.0-32.0 [facility] Nucleated RBC/100 WBC (Bld) [Ratio] 0 % 0-5 [facility] MCHC Auto (RBC) [Mass/Vol]Or dered By: Alfredito Bowie on 09-25-2023 MCHC (RBC) [Mass/Vol] 30.8 g/dL 32-36 [facility] No Panel InformationOrdered By: Alfredito Bowie on 09-25-2023 Estimated Creatinine Clearance Calc 39.59 ml/min [facility] Estimated GFR (MDRD) Amer 116 mL/min >60 [facility] Comment on above: GFR Calc Estimated GFR (MDRD) Non-Af Amer 96 mL/min >60 [facility] Comment on above: Non- GFR Calc Platelets bldOrdered By: Rach Bowie on 09-25-2023 Platelets (Bld) [#/Vol] 344 10*3/uL 150-450 [facility] Serum or plasma calcium tiffanie urement (mass/volume)Ordered By: Alfredito Bowie on 09-25-2023 Calcium [Mass/Vol] 5.2 mg/dL 8.5-10.1 [facility] Comment on above: Critical Result(s) C alled at: 21:38:19 09/25/2023 by: Ledy Denise to LSparr. Results read back by same. Serum or plasma creatinine m easurement (mass/volume)Ordered By: Alfredito Bowie on 09-25-2023 Creatinine [Mass/Vol] 0.64 mg/dL 0.55-1.02 [facility] Comment on above: The validity of the calculated GFR & GFRAA in patients over 70 years has not been determined. Clinical correlation is essential. Serum or plasma urea nitroge n measurement (mass/volume)Ordered By: Alfredito Bowie on 09-25-2023 Urea nitrogen [Mass/Vol] 19 mg/dL 7-18 [facility] Thin prep Papanicolaou smear with manual screeningOrdered By: Alfredito Bowie on 09-25-2023 Thin prep Papanicolaou smear with manual screening 4 5-15 [facility] G. lamblia+Cryptosporidium s p Ag IA Ql (Stl)on 09-22-2023 Cryptosporidium sp Ag Ql (Stl) Negative Negative [facility] G. lamblia Ag Ql (Stl) Negative Negative [facility] FECAL LACTOFERRIN/LEUKOCYTES on 09-20-2023 Lactoferrin IA Ql (Stl) Negative for lactoferrin, which may indicate the absence of fecal white blood cells Negative [facility] C. DIFFICILE PCRon C. difficile toxin genes VALERIA+probe Ql (Stl) Negative Negative for C. difficile toxin by PCR [facility] Gastrointestinal pathogens i dentified VALERIA+probe Nom (Stl)on 09-19-2023 Campylobacter sp DNA VALERIA+probe Nom (Unsp spec) Not detected Not Detected [facility] Salmonella sp DNA VALERIA+probe Ql (Unsp spec) Not detected Not Detected [facility] Shiga toxin stx gene VALERIA+probe Nom (Unsp spec) Not detected Not Detected [facility] Shigella sp DNA VALERIA+probe Ql (Unsp spec) Not detected Not Detected [facility] VITAMIN B12 BLOODon 09-01-20 Cobalamin (Vitamin B12) [Mass/Vol] 741 pg/mL 232 - 1,245 pg/mL [facility] INR (POC)on 02-24-2023 INR Coag (PPP) [Relative time] 2.6 {INR} High 0.8 - 1.2 [facility] Internal Quality Check Acceptable [facility] Basophil percentageon 2021 Bilirubin [Mass/Vol] 0.60 mg/dL 0.20-1.00 [facility] Work Phone: Comment on above: For patients on eltr ombopag therapy, use of Dimension [place] TBIL is not recommended. Cholesterol [Mass/Vol] 186 mg/dL <200 [facility] Work Phone: Comment on above: <200 mg/dL Desirable 200-240 mg/dL Borderline >240 mg/dL High Risk Protein [Mass/Vol] 7.8 g/dL 6.4-8.2 [facility] Work Phone: Triglyceride [Mass/Vol] 113 mg/dL <199 [facility] Work Phone: Comment on above: The drugs N-Acetylcy steine and Metamizole may falsely depress this assay.Serum Triglycerides Reference Interval Normal <150 mg/dL Borderline high 150 - 199 mg/dL High 200 - 499 mg/dL Very High > or = 500 mg/dL Direct bilirubinon 2 Bilirubin.direct [Mass/Vol] 0.15 mg/dL 0.00-0.30 [facility] Work Phone: Laboratory - Chemistry and C hemistry - challengeon 10-21-2022 ALP [Catalytic activity/Vol] 43 U/L 45-117 [facility] Work Phone: ALT [Catalytic activity/Vol] 26 U/L 13-56 [facility] Work Phone: Globulin (S) [Mass/Vol] 4.0 g/dL 2.2-4.2 [facility] Work Phone: Serum or plasma albumin tiffanie urement (mass/volume)on 10-21-2022 Albumin [Mass/Vol] 3.8 g/dL 3.2-5.0 [facility] Work Phone: Serum or plasma cholesterol in HDL measurement (mass/volume)on 10-21-2022 Cholesterol in HDL [Mass/Vol] 58 mg/dL >40 [facility] Work Phone: Comment on above: The drugs N-Acetylcy steine and Metamizole may falsely depress this assay. Reference Range HDL <40 mg/dL Low HDL Cholesterol HDL >or= 60 mg/dL High HDL Cholesterol Serum or plasma cholesterol in VLDL measurement (mass/volume)on 10-21-2022 Cholesterol in VLDL [Mass/Vol] 23 mg/dL 5-40 [facility] Work Phone: Serum or plasma low density lipoprotein (LDL) cholesterol measurement (mass/volume)on 10-21-2022 Cholesterol in LDL [Mass/Vol] 105 mg/dL 0-130 [facility] Work Phone: Thin prep Papanicolaou smear with manual screeningon 10-21-2022 Thin prep Papanicolaou smear with manual screening 17 U/L 15-37 [facility] Work Phone: PT panel Coag (PPP)on 2021 INR Coag (Bld) [Relative time] 2.2 {INR} [facility] INR in Blood by Coagulation assayon 08-13-2022 INR Coag (Bld) [Relative time] 2.2 {INR} [facility] Work Phone: Laboratory - Coagulationon 0 08-13-2022 PT Coag (PPP) [Time] 24.3 s 11.7-14.9 [facility] Work Phone: URINE CULTUREon 08-01-2022 Bacteria identified Cx Nom (U) 10,000 -<50,000 CFU/ml Mixed microbiota Abnormal [facility] Urinalysis complete panel (U )on 08-01-2022 Bilirubin Ql (U) Negative Negative [facility] Clarity (Unsp spec) Cloudy Abnormal Clear [facility] Color (U) Yellow Yellow [facility] Glucose Test strip (U) [Mass/Vol] Negative Negative [facility] Hemoglobin Ql (U) 1+ Abnormal Negative [facility] Ketones Ql (U) Negative Negative [facility] Leukocyte esterase Test strip Ql (U) 3+ Abnormal Negative [facility] Nitrite Ql (U) Negative Negative [facility] pH (U) 7.0 [pH] 5.0 - 8.0 [facility] Protein (U) [Mass/Vol] 2+ Abnormal Negative [facility] RBC LM.HPF (Urine sed) [#/Area] 11-25 /HPF Abnormal 0-3 /HPF [facility] Specific gravity (U) [Rel density] 1.018 1.005 - 1.030 [facility] Urobilinogen Ql (U) Negative Negative [facility] WBC LM.HPF (Urine sed) [#/Area] /[HPF] Abnormal 0-5 /HPF [facility] UA DIP, URINE (POC)on 2021 BILIRUBIN UA (POCT) Negative Negative [facility] CLARITY UA (POCT) Cloudy [facility] COLOR UA (POCT) Yellow [facility] GLUCOSE UA (POCT) Negative Negative mg/dL [facility] HEMOGLOBIN/BLOOD UA (POCT) Moderate Abnormal Negative [facility] KETONE UA (POCT) Negative Negative mg/dL [facility] LEUKOCYTES UA (POCT) Small Abnormal Negative [facility] NITRITE UA (POCT) Negative Negative [facility] PH UA (POCT) 7.5 4.5 - 8.0 [facility] Protein Ql (U) 30 mg/dL Abnormal Negative mg/dL [facility] SPECIFIC GRAVITY UA (POCT) 1.020 1.005 - 1.030 [facility] UROBILINOGEN UA (POCT) 0.2 E.U./dL Normal E.U./dL [facility] Basophil percentageon 2021 Bilirubin [Mass/Vol] 0.70 mg/dL 0.20-1.00 [facility] Work Phone: Comment on above: For patients on eltr ombopag therapy, use of Dimension [place] TBIL is not recommended. Cholesterol [Mass/Vol] 174 mg/dL <200 [facility] Work Phone: Comment on above: <200 mg/dL Desirable 200-240 mg/dL Borderline >240 mg/dL High Risk Protein [Mass/Vol] 7.2 g/dL 6.4-8.2 [facility] Work Phone: Triglyceride [Mass/Vol] 112 mg/dL <199 [facility] Work Phone: Comment on above: The drugs N-Acetylcy steine and Metamizole may falsely depress this assay.Serum Triglycerides Reference Interval Normal <150 mg/dL Borderline high 150 - 199 mg/dL High 200 - 499 mg/dL Very High > or = 500 mg/dL Direct bilirubinon Bilirubin.direct [Mass/Vol] 0.20 mg/dL 0.00-0.30 [facility] Work Phone: Laboratory - Chemistry and C hemistry - challengeon 04-30-2022 ALP [Catalytic activity/Vol] 43 U/L 45-117 [facility] Work Phone: ALT [Catalytic activity/Vol] 25 U/L 13-56 [facility] Work Phone: Globulin (S) [Mass/Vol] 3.5 g/dL 2.2-4.2 [facility] Work Phone: Serum or plasma albumin tiffanie urement (mass/volume)on 04-30-2022 Albumin [Mass/Vol] 3.7 g/dL 3.2-5.0 [facility] Work Phone: Serum or plasma cholesterol in HDL measurement (mass/volume)on 04-30-2022 Cholesterol in HDL [Mass/Vol] 57 mg/dL >40 [facility] Work Phone: Comment on above: The drugs N-Acetylcy steine and Metamizole may falsely depress this assay. Reference Range HDL <40 mg/dL Low HDL Cholesterol HDL >or= 60 mg/dL High HDL Cholesterol Serum or plasma cholesterol in VLDL measurement (mass/volume)on 04-30-2022 Cholesterol in VLDL [Mass/Vol] 22 mg/dL 5-40 [facility] Work Phone: Serum or plasma low density lipoprotein (LDL) cholesterol measurement (mass/volume)on 04-30-2022 Cholesterol in LDL [Mass/Vol] 95 mg/dL 0-130 [facility] Work Phone: Thin prep Papanicolaou smear with manual screeningon 04-30-2022 Thin prep Papanicolaou smear with manual screening 18 U/L 15-37 [facility] Work Phone: ALBUMIN/CREAT RATIO RND URon 12-18-2021 Albumin DL <= 20 mg/L (U) [Mass/Vol] 12.5 mg/L [facility] Albumin/Creatinine (U) [Mass ratio] 17 mg/g <30 mg/g [facility] Creatinine Unsp time (U) [Mass/Vol] 74.9 mg/dL 20 - 300 mg/dL [facility] Basic metabolic 2000 panelon 12-18-2021 Anion gap [Moles/Vol] 9 mmol/L 9 - 18 mmol/L [facility] Calcium [Mass/Vol] 10.6 mg/dL High 8.5 - 10. 2 mg/dL [facility] Chloride [Moles/Vol] 104 mmol/L 97 - 105 mmol/L [facility] CO2 [Moles/Vol] 28 mmol/L 22 - 30 mmol/L [facility] Creatinine [Mass/Vol] 1.07 mg/dL High 0.58 - 0.96 mg/dL [facility] GFR/1.73 sq M.predicted among blacks MDRD (S/P/Bld) [Vol rate/Area] mL/min/{1.73_m2} [facility] GFR/1.73 sq M.predicted among non-blacks MDRD (S/P/Bld) [Vol rate/Area] 50 . [facility] Glucose [Mass/Vol] 93 mg/dL 74 - 99 mg/dL [facility] Potassium [Moles/Vol] 4.6 mmol/L 3.7 - 5.1 mmol/L [facility] Sodium [Moles/Vol] 141 mmol/L 136 - 144 mmol/L [facility] Urea nitrogen [Mass/Vol] 21 mg/dL 7 - 21 mg/dL [facility] CBC panel Auto (Bld)on 12-18 Absolute nRBC <0.01 <0.01 k/uL [facility] Erythrocyte distribution width (RBC) [Ratio] 13.3 % 11.5 - 15.0 % [facility] Hematocrit (Bld) [Volume fraction] 44.4 % 36.0 - 46.0 % [facility] Hemoglobin (Bld) [Mass/Vol] 13.5 g/dL 11.5 - 15.5 g/dL [facility] MCH (RBC) [Entitic mass] 27.8 pG 26.0 - 34.0 pG [facility] MCHC (RBC) [Mass/Vol] 30.4 g/dL Low 30.5 - 36.0 g/dL [facility] MCV (RBC) [Entitic vol] 91.5 fL 80.0 - 100.0 fL [facility] Platelet mean volume (Bld) [Entitic vol] 10.8 fL 9.0 - 12.7 fL [facility] Platelets (Bld) [#/Vol] 309 10*3/uL 150 - 400 k/uL [facility] RBC (Bld) [#/Vol] 4.85 10*6/uL 3.90 - 5.20 m/uL [facility] WBC (Bld) [#/Vol] 7.21 10*3/uL 3.70 - 11.00 k/uL [facility] HbA1c (Bld)on 12-18-2021 Average glucose Estimated from glycated hemoglobin (Bld) [Mass/Vol] 131 mg/dL [facility] HbA1c (Bld) [Mass fraction] 6.2 % High 4.3 - 5.6 % [facility] MAGNESIUM Don 12-18-2021 Magnesium [Mass/Vol] 2.1 mg/dL 1.7 - 2.3 mg/dL [facility] T4 FREE/FREE THYROXon 2021 Free T4 [Mass/Vol] 1.6 ng/dL 0.9 - 1.7 ng/dL [facility] TSH Don 12-18-2021 TSH Qn 1.470 m[IU]/L 0.270 - 4.200 uU/mL [facility] VITAMIN D 25 HYDROXYon 12-18 25-hydroxyvitamin D3 [Mass/Vol] 28.4 ng/mL Low 31.0 - 80.0 ng/mL [facility] CNOVon 03-25-2018 CNOV Office Visit (AGCARDWST) YOBANI GOODEN ([id number]) 1945 FDate Time Provider Department03/25/18 3:00 PM INDRA STONE During your visit today, we recorded the following information about you: Pulse Blood pressure Weight Height 68/minute 130/70 127.7 kg 1.626 Alie Stone MD 03/25/2018 4:57 PM SignedPERTINENT CARDIAC HISTORYASHD - PCI LAD [id number] - 08/17, provoked, 6 mos a/cADHERENCE TO GUIDELINESACE-I or ARB for HF with prior LVEFANDlt;40 (NQF 0081) - N/AASA or Plavix for ASHD (NQF 0067) - metBeta alex for ASHD with prior [place] or prior LVEFANDlt;40 (NQF 0070) - metBeta alex for HF with prior LVEFANDlt;40 (NQF 0083) - N/AACE-I or ARB for ASHD with DM or prior LVEFANDlt;40 (NQF 0066) - metStatin therapy for ASHD or FHL or DM - metBMI documented and plan if ANDgt;25 (NQF 0421) - lifestyle recommendation formTobacco use screening and referral (NQF 0028) - lifestyle recommendation formRecommendation for whole food, plant based diet - lifestyle recommendation formCLINICAL IMPRESSION/PLAN:Yobani Reid has stable ischemic heart disease. She is well compensated.There is no evidence of unstable cardiac rhythm or fluid retention. Risk ofperioperative cardiac complications is low to intermediate for the procedureanticipated. I have no objection to her holding aspirin for 5-7 days, at lowrisk.No further diagnostic studies are recommended. She is at increased risk ofperioperative thromboembolic complications and early mobilization will beessential. There was evidence of right ventricular strain on her EKG, but thishas returned to baseline with presumed resolution of her emboli.I will see her in 6 months or as needed.Written and verbal health teaching given to patient, patient verbalizesunderstanding and agrees with treatment plan.DIAGNOSIS FOR VISIT:Preoperative cardiac risk assessmentASHDHISTORY OF PRESENT ILLNESSYobani Reid returns for assessment of perioperative cardiac risk. Sheplans an incisional herniorrhaphy.She has been walking on a treadmill regularly. She is able to walk up and downa flight of steps without difficulty. She does her own housework at a fairlybrisk pace. She has had no chest discomfort. She reports stable exercisetolerance. She denies orthopnea, edema, syncope, palpitations, TIAs, amaurosisand claudication.She has completed her course of therapy for pulmonary embolism .ALLERGIES:ALLERGIESAllergen Reactions- Adhesive Tape ([place]* Other: See Comments Burning and redness where tape touches skin- Amoxicillin Rash- Ampicillin Rash- Keflex [Cephalexin] Rash- Niacin Rash flushing- Penicillins Rash- Sulfa (Sulfonamide * RashCURRENT OUTPATIENT MEDICATIONS:nitroglycerin sublingual (NITROQUICK) 0.4 mg SL tablet Dissolve 1 tablet underthe tongue as needed. DISSOLVE ON TONGUE FOR CHEST PAIN. IF NO PAIN RELIEF,CALL 911meclizine (ANTIVERT) 25 mg tab Take 1 tablet by mouth every 6 hours as needed(dizziness). (prescription given from ER)magnesium oxide (MAG-OX) 400 mg tablet Take 2 tablets by mouth twice daily.Fenofibrate (LOFIBRA) 160 mg tablet TAKE ONE TABLET BY MOUTH EVERY DAYmetFORMIN ER (GLUCOPHAGE XR) 500 mg 24 hr tablet Take 1 tablet by mouth oncedaily. With mealFosinopril Sodium 40 mg tablet Take 1 tablet by mouth once daily.oxybutynin ER (DITROPAN XL) 15 mg 24 hr Extended Rel Tab Take 1 tablet by mouthonce daily.atorvastatin (LIPITOR) 40 mg tablet Take 1 tablet by mouth daily at bedtime.For cholesterol.atenolol (TENORMIN) 25 mg tablet Take 1 tablet by mouth once daily.levothyroxine (SYNTHROID) 112 mcg tablet Take 1 tablet by mouth once daily.fluticasone (FLONASE) 50 mcg/actuation nasal spray Use 1 [place] in each nostrilonce daily.blood sugar diagnostic (FREESTYLE LITE STRIPS) test strip TEST BLOOD SUGAR upto 1 TIMES PER DAY. DX : E11.9. INSULIN DEP: no.Lancets lancets Use as instructed--Check sugars up to once daily. DX: E11.9,Not insulin requiringhydrocortisone 2.5 % ointment Apply 1 application to affected area twice daily.Azelastine (ASTEPRO) 0.15 % (205.5 mcg) spry Use 2 Sprays in each nostril twicedaily as needed.OTC PRODUCT CALCIUM 600 MG DAILY.aspirin(ECOTRIN LOW STRENGTH 81 MG TAB) Take one(1) tablet daily.oxymetazoline hcl(AFRIN SINUS NO DRIP 0.05 % NASAL MIST) as necessaryTHERAPEUTIC MULTIVITAMIN TAB Take one tablet by mouth daily.PAST MEDICAL HISTORYDiagnosis Date- Acute appendicitis 05/11/14- Allergic rhinitis, cause unspecified Allergic rhinitis- CKD (chronic kidney disease) 02/23/2010- Coronary atherosclerosis of unspecified type of vessel, eyak or graft10/24/2009- Esophageal reflux Gastroesophageal reflux- Impaired fasting glucose 11/13/2005- Mixed hyperlipidemia Hyperlipidemia- 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 vaginitis/post-men.- Postsurgical percutaneous transluminal coronary angioplasty status 12/15/2009- Type II or unspecified type diabetes mellitus without mention ofcomplication, not stated as uncontrolled 02/21/2014- Unspecified essential hypertension Essential hypertension- Unspecified hypothyroidism Hypothyroidism- Unspecified urinary incontinence urgePAST SURGICAL HISTORYProcedure Laterality Date- COLONOSCOP W/ OR W/O [facility] SPEC 02/18/2006 Colonoscopy- COLONOSCOP W/ OR W/O [facility] SPEC 06/14/13 Colonoscopy- DANDamp;C, DIAG AND/OR THERAPEUTIC Dilation ANDamp; curettage- EGD W/O OR W/BRUSH/WASH 06/14/13 EGD- FINGER SURGERY HX Right 10/2016 trigger finger release- [facility]- FOOT/TOES SURGERY PROC UNLISTED right foot- HYSTEROSCOPY, DIAGNOSTIC (SEPARATE 07/18/05 Dr Ceasar Rai- LAPAROSCOPY, SURGICAL, APPENDECTOMY 05/11/14- LEFT HEART CATH,PERCUTANEOUS Cardiac cath, L heart- PULMONARY FUNCTION TEST 03/21/05- REMOVAL ADENOIDS,PRIMARY,ANDlt;14 Y/O Adenoidectomy- REMOVAL OF TONSILS,ANDlt;14 Y/O Tonsillectomy- REVISE MEDIAN N/CARPAL TUNNEL SURG Carpal tunnel decomp, Rt wrist- SIGMOIDOSCOPY FLEX DIAG 1996 Sigmoidoscopy- TOTAL ABDOM HYSTERECTOMY 09/04 Dr Mckeon Bare/endometrial hyperplasia w/o dysplasia- TRANSCATH STENT INIT VESSEL,PERCUT Transcath stent init vessel percutFAMILY HISTORYProblem Relation Age of Onset- Stroke Mother at age 50- Hypertension Mother- Eczema [OTHER] Mother- Heart Father mi at age 65- Psoriasis [OTHER] Father- Cancer Maternal Grandmother uterine- Diabetes Maternal Grandmother- Stroke Maternal Grandfather- Stroke Paternal Grandmother- Heart Paternal Grandfather- Coronary Artery Disease Brother sudden , age 62- Heart Brother Slight issueSocial History Marital status: Spouse name: Mathew Years of education: 12 Number of children: 0Occupational 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 , and lived alone. Independent of activities ofdaily living. Slept in a recliner for years for breathing and back.REVIEW OF SYSTEMS: General: No chills, fever, weight loss, night sweats.Respiratory: No productive cough. Cardiac: As noted above. GI: No melena.: No dysuria. Musculoskeletal: No myalgias.PHYSICAL EXAMINATION: S/he is alert and in no distress.VITAL SIGNS: BP 130/70 Pulse 68 Ht 5' 4ANDquot; (1.63m) Wt 281 lb 9.6 oz(127.7kg) BMI 48.31 kg/(m2).SHEENT: Skin is warm and dry. No xanthelasmas appreciated. Pharynx isbenign. There is no oral cyanosis. Neck: supple. No adenopathy or thyroidenlargement. Chest: Clear to percussion and auscultation. Trachea is midline. Air entry is equal. There is no chest wall tenderness. Cardiac: Regularrhythm. S1 and S2 are normal. PMI is nondisplaced. There is a soft systolicejection murmur. No click is heard. Carotids are brisk without bruits. JVPis less than 10 cm. Abdomen: Soft and nontender. There are no pulsatilemasses or bruits. No liver enlargement. Bowel sounds are active.Extremities: Trace edema. Pulses are intact and symmetrical. No clubbing orcyanosis. No femoral bruits. Neurologic: Grossly normal motor and sensory.S/he is alert and oriented x4.EKG demonstrates sinus rhythm.There is a right bundle branch block. Since prior study, QRS duration hasreturned to baseline.Recent labs were reviewed. Renal function is mildly impaired. LDL was 114.Electronically Signed:Moriah Ford 2017 3:04 [facility]:Felipe Aranda MD 03/25/2018 3:04 PM SignedLIFESTYLE CHANGEA healthy lifestyle is the most important component of your overall treatmentplan. Please give serious thought to the following areas and commit to makinglong term changes.EAT A WHOLE FOOD, PLANT BASED DIETThe nutrition your body gets is more important than the medicine you take.What matters most is the overall way you eat. We encourage you to minimize theuse of animal products (which include dairy and all meats except fatty fish)and use whole, unprocessed plant foods to provide your protein, vitamins andother nutrients. We have a lot of information to share with you on this topic. We also hold Shared Medical Appointments, where you can come visit with in the company of other patients and spend over an hour talking aboutthe challenges of changing the way you eat. This is not a ANDquot;dietANDquot;.It is a way of life that you will keep with you.EXERCISE REGULARLYIt is not important to spend hours in the gym, lifting weights and perspiringheavily. A total of 2-3 hours per week of aerobic (causing you to bemoderately short of breath) exercise is sufficient to improve your health.Talk to us before you begin a new exercise program, if you have heart diseaseor experience shortness of breath or chest pain.REDUCE STRESSChronic emotional and physical stress leads to disease. Ways of reducingstress include meditation, visualization, prayer, yoga and other forms ofrelaxation therapy. Consistency is the munoz. Find a technique that works foryou and do it every day.CULTIVATE RELATIONSHIPSLoneliness and isolation have a major negative impact on health. Seek outothers who can love, care for and nurture you. Avoid hurtful relationships.MAINTAIN IDEAL BODY WEIGHTThe best way to do this is to do all the things above. Our bodies naturallyfind the right weight if we keep moving and feed ourselves the right food. Ifyour BMI is greater than 25, we strongly recommend a referral to a weightmanagement program. Please speak to us or your family physician aboutavailable programs.AVOID NICOTINE IN ALL FORMSThis includes all tobacco products, whether chewed, smoked, vaped, or rubbed onthe skin. Smoking cessation programs, which can make use of tobaccosubstitutes, medications to suppress cravings and behavior management, areavailable. Please contact your family physician about programs in your area.Referring Provider: INDRA STONE [[id number]]Allergies As of Date: 03/25/2018 Noted Allergy ReactionADHESIVE TAPE (ROSINS) 11/11/2005 14 - Other: See Comments Comments: Burning and redness where tape touches skinAMOXICILLIN 11/11/2005 2 - RashAMPICILLIN 11/11/2005 2 - RashKEFLEX (CEPHALEXIN) 11/11/2005 2 - RashNIACIN 11/11/2005 2 - Rash Comments: flushingPENICILLINS 09/28/2009 2 - RashSULFA (SULFONAMIDE ANTIBIOTICS) 11/18/2005 2 - RashDate Reviewed: 03/25/2018Reviewed by: Britney Sen - Fully AssessedReason for Visit: Follow Up [171]Primary Visit Diagnosis:ASHD (arteriosclerotic heart disease) [I25.10] Other Visit Diagnosis:Preop cardiovascular exam [Z01.810]Prescriptions as of 03/25/2018 Sig: NITROGLYCERIN 0.4 MG SUBLINGU* Dissolve 1 tablet under the t* MECLIZINE 25 MG TABLET Take 1 tablet by mouth every * MAGNESIUM OXIDE 400 MG TABLET Take 2 tablets by mouth twice* FENOFIBRATE 160 MG TABLET TAKE ONE TABLET BY MOUTH EVER* METFORMIN ER 500 MG TABLET,EX* Take 1 tablet by mouth once d* FOSINOPRIL 40 MG TABLET Take 1 tablet by mouth once d* OXYBUTYNIN CHLORIDE ER 15 MG * Take 1 tablet by mouth once d* ATORVASTATIN 40 MG TABLET Take 1 tablet by mouth daily * ATENOLOL 25 MG TABLET Take 1 tablet by mouth once d* LEVOTHYROXINE 112 MCG TABLET Take 1 tablet by mouth once d* FLUTICASONE 50 MCG/ACTUATION * Use 1 [place] in each nostril o* BLOOD SUGAR DIAGNOSTIC STRIPS TEST BLOOD SUGAR up to 1 NUBIA* LANCETS Use as instructed--Check suga* HYDROCORTISONE 2.5 % TOPICAL * Apply 1 application to affect* AZELASTINE 0.15 % (205.5 MCG)* Use 2 Sprays in each nostril * OTC PRODUCT CALCIUM 600 MG DAILY. ECOTRIN LOW STRENGTH 81 MG TA* Take one(1) tablet daily. AFRIN NO DRIP (OXYMETAZOLINE)* as necessary THERAPEUTIC MULTIVITAMIN TABL* Take one tablet by mouth temi*Problem List As Of Date 03/25/2018 Noted Resolved Essential hypertension [I10] Mixed hyperlipidemia [E78.2] Postmenopausal Atrophic Vaginitis [N95.2] ALLERGIC RHINITIS NOS [J30.9] 06/06/2009 More... 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 Controlled type 2 diabetes mellitus with stage *INVALID FOR* Other instructions from your clinician: LIFESTYLE CHANGE A healthy lifestyle is the most important component of your overall treatment plan. 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 EAT A WHOLE FOOD, PLANT BASED DIET The nutrition your body gets is more important than the medicine you take. What matters most is the overall way you eat. We encourage you to minimize the use of animal products (which include dairy and all meats except fatty fish) and use whole, unprocessed plant foods to provide your protein, vitamins and other nutrients. We have a lot of information to share with you on this topic. We also hold Shared Medical Appointments, where you can come visit with Dr. Stone in the company of other patients and spend over an hour talking about the challenges of changing the way you eat. This is not a diet. It is a way of life that you will keep with you. EXERCISE REGULARLY It is not important to spend hours in the gym, lifting weights and perspiring heavily. A total of 2-3 hours per week of aerobic (causing you to be moderately short of breath) exercise is sufficient to improve your health. Talk to us before you begin a new exercise program, if you have heart disease or experience shortness of breath or chest pain. REDUCE STRESS Chronic emotional and physical stress leads to disease. Ways of reducing stress include meditation, visualization, prayer, yoga and other forms of relaxation therapy. Consistency is the munoz. Find a technique that works for you and do it every day. CULTIVATE RELATIONSHIPS Loneliness and isolation have a major negative impact on health. Seek out others who can love, care for and nurture you. Avoid hurtful relationships. MAINTAIN IDEAL BODY WEIGHT The best way to do this is to do all the things above. Our bodies naturally find the right weight if we keep moving and feed ourselves the right food. If your BMI is greater than 25, we strongly recommend a referral to a weight management program. Please speak to us or your family physician about available programs. AVOID NICOTINE IN ALL FORMS This includes all tobacco products, whether chewed, smoked, vaped, or rubbed on the skin. Smoking cessation programs, which can make use of tobacco substitutes, medications to suppress cravings and behavior management, are available. Please contact your family physician about programs in your area.Medications Discontinued During This Encounter warfarin (COUMADIN) 2.5 mg tablet 60 t* 11 11/19/2017 03/25/2018 Route: ORAL Sig: Take 1-2 tablets by mouth daily as directed. Disc: Reason for discontinue is not on file.Follow-up and Disposition History RecordedEncounter Number: [id number] Status:Closed by INDRA STONE MD on 03/25/18 [facility] PROGRESSon 03-25-2018 PROGRESS HNO ID: [id number] thor: Indra Villela: (none)Author Type: PhysicianType: Progress NotesFiled: 03/25/2018 4:57 PMNote Text:PERTINENT CARDIAC HISTORYASHD - PCI LAD [id number] - 08/17, provoked, 6 mos a/cADHERENCE TO GUIDELINESACE-I or ARB for HF with prior LVEF<40 (NQF 0081) - N/AASA or Plavix for ASHD (NQF 0067) - metBeta alex for ASHD with prior [place] or prior LVEF<40 (NQF 0070) - metBeta alex for HF with prior LVEF<40 (NQF 0083) - N/AACE-I or ARB for ASHD with DM or prior LVEF<40 (NQF 0066) - metStatin therapy for ASHD or FHL or DM - metBMI documented and plan if >25 (NQF 0421) - lifestyle recommendation formTobacco use screening and referral (NQ 0028) - lifestyle recommendationformRecommendatio n for whole food, plant based diet - lifestyle recommendationformCLINICAL IMPRESSION/PLAN:Yobani Reid has stable ischemic heart disease. She is wellcompensated. There is no evidence of unstable cardiac rhythm or fluidretention. Risk of perioperative cardiac complications is low tointermediate for the procedure anticipated. I have no objection to herholding aspirin for 5-7 days, at low risk.No further diagnostic studies are recommended. She is at increased risk ofperioperative thromboembolic complications and early mobilization will beessential. There was evidence of right ventricular strain on her EKG, butthis has returned to baseline with presumed resolution of her emboli.I will see her in 6 months or as needed.Written and verbal health teaching given to patient, patient verbalizesunderstanding and agrees with treatment plan.DIAGNOSIS FOR VISIT:Preoperative cardiac risk assessmentASHDHISTORY OF PRESENT ILLNESSYobani Reid returns for assessment of perioperative cardiac risk.She plans an incisional herniorrhaphy.She has been walking on a treadmill regularly. She is able to walk up anddown a flight of steps without difficulty. She does her own housework at afairly brisk pace. She has had no chest discomfort. She reports stableexercise tolerance. She denies orthopnea, edema, syncope, palpitations,TIAs, amaurosis and claudication.She has completed her course of therapy for pulmonary embolism .ALLERGIES:ALLERGIESAllergen Reactions- Adhesive Tape (Herminia* Other: See Comments Burning and redness where tape touches skin- Amoxicillin Rash- Ampicillin Rash- Keflex [Cephalexin] Rash- Niacin Rash flushing- Penicillins Rash- Sulfa (Sulfonamide * RashCURRENT OUTPATIENT MEDICATIONS:nitroglycerin sublingual (NITROQUICK) 0.4 mg SL tablet Dissolve 1 tabletunder the tongue as needed. DISSOLVE ON TONGUE FOR CHEST PAIN. IF NO PAINRELIEF, CALL 911meclizine (ANTIVERT) 25 mg tab Take 1 tablet by mouth every 6 hours asneeded (dizziness). (prescription given from ER)magnesium oxide (MAG-OX) 400 mg tablet Take 2 tablets by mouth twicedaily.Fenofibrate (LOFIBRA) 160 mg tablet TAKE ONE TABLET BY MOUTH EVERY DAYmetFORMIN ER (GLUCOPHAGE XR) 500 mg 24 hr tablet Take 1 tablet by mouthonce daily. With mealFosinopril Sodium 40 mg tablet Take 1 tablet by mouth once daily.oxybutynin ER (DITROPAN XL) 15 mg 24 hr Extended Rel Tab Take 1 tablet bymouth once daily.atorvastatin (LIPITOR) 40 mg tablet Take 1 tablet by mouth daily atbedtime. For cholesterol.atenolol (TENORMIN) 25 mg tablet Take 1 tablet by mouth once daily.levothyroxine (SYNTHROID) 112 mcg tablet Take 1 tablet by mouth oncedaily.fluticasone (FLONASE) 50 mcg/actuation nasal spray Use 1 [place] in eachnostril once daily.blood sugar diagnostic (FREESTYLE LITE STRIPS) test strip TEST BLOOD SUGARup to 1 TIMES PER DAY. DX : E11.9. INSULIN DEP: no.Lancets lancets Use as instructed--Check sugars up to once daily. DX:E11.9, Not insulin requiringhydrocortisone 2.5 % ointment Apply 1 application to affected area twicedaily.Azelastine (ASTEPRO) 0.15 % (205.5 mcg) spry Use 2 Sprays in each nostriltwice daily as needed.OTC PRODUCT CALCIUM 600 MG DAILY.aspirin(ECOTRIN LOW STRENGTH 81 MG TAB) Take one(1) tablet daily.oxymetazoline hcl(AFRIN SINUS NO DRIP 0.05 % NASAL MIST) as necessaryTHERAPEUTIC MULTIVITAMIN TAB Take one tablet by mouth daily.PAST MEDICAL HISTORYDiagnosis Date- Acute appendicitis 05/11/14- Allergic rhinitis, cause unspecified Allergic rhinitis- CKD (chronic kidney disease) 02/23/2010- Coronary atherosclerosis of unspecified type of vessel, eyak or graft10/24/2009- Esophageal reflux Gastroesophageal reflux- Impaired fasting glucose 11/13/2005- Mixed hyperlipidemia Hyperlipidemia- 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 vaginitis/post-men.- Postsurgical percutaneous transluminal coronary angioplasty status12/15/2009- Type II or unspecified type diabetes mellitus without mention ofcomplication, not stated as uncontrolled 02/21/2014- Unspecified essential hypertension Essential hypertension- Unspecified hypothyroidism Hypothyroidism- Unspecified urinary incontinence urgePAST SURGICAL HISTORYProcedure Laterality Date- COLONOSCOP W/ OR W/O [facility] SPEC 02/18/2006 Colonoscopy- COLONOSCOP W/ OR W/O [facility] SPEC 06/14/13 Colonoscopy- DANDC, DIAG AND/OR THERAPEUTIC Dilation AND curettage- EGD W/O OR W/BRUSH/WASH 06/14/13 EGD- FINGER SURGERY HX Right 10/2016 trigger finger release- [facility]- FOOT/TOES SURGERY PROC UNLISTED right foot- HYSTEROSCOPY, DIAGNOSTIC (SEPARATE 07/18/05 Dr Ceasar Rai- LAPAROSCOPY, SURGICAL, APPENDECTOMY 05/11/14- LEFT HEART CATH,PERCUTANEOUS Cardiac cath, L heart- PULMONARY FUNCTION TEST 03/21/05- REMOVAL ADENOIDS,PRIMARY,<12 Y/O Adenoidectomy- REMOVAL OF TONSILS,<12 Y/O Tonsillectomy- REVISE MEDIAN N/CARPAL TUNNEL SURG Carpal tunnel decomp, Rt wrist- SIGMOIDOSCOPY FLEX DIAG 1996 Sigmoidoscopy- TOTAL ABDOM HYSTERECTOMY 09/04 Dr Mike Rai/endometrial hyperplasia w/o dysplasia- TRANSCATH STENT INIT VESSEL,PERCUT Transcath stent init vessel percutFAMILY HISTORYProblem Relation Age of Onset- Stroke Mother at age 50- Hypertension Mother- Eczema [OTHER] Mother- Heart Father mi at age 65- Psoriasis [OTHER] Father- Cancer Maternal Grandmother uterine- Diabetes Maternal Grandmother- Stroke Maternal Grandfather- Stroke Paternal Grandmother- Heart Paternal Grandfather- Coronary Artery Disease Brother sudden , age 62- Heart Brother Slight issueSocial History Marital status: Spouse name: Mathew Years of education: 12 Number of children: 0Occupational 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 , and lived alone. Independent of activities ofdaily living. Slept in a recliner for years for breathing and back.REVIEW OF SYSTEMS: General: No chills, fever, weight loss, night sweats. Respiratory: No productive cough. Cardiac: As noted above. GI: Nomelena. : No dysuria. Musculoskeletal: No myalgias.PHYSICAL EXAMINATION: S/he is alert and in no distress.VITAL SIGNS: BP 130/70 Pulse 68 Ht 5' 4 (1.63m) Wt 281 lb 9.6 oz(127.7kg) BMI 48.31 kg/(m2).SHEENT: Skin is warm and dry. No xanthelasmas appreciated. Pharynx isbenign. There is no oral cyanosis. Neck: supple. No adenopathy orthyroid enlargement. Chest: Clear to percussion and auscultation.Trachea is midline. Air entry is equal. There is no chest walltenderness. Cardiac: Regular rhythm. S1 and S2 are normal. PMI isnondisplaced. There is a soft systolic ejection murmur. No click isheard. Carotids are brisk without bruits. JVP is less than 10 cm.Abdomen: Soft and nontender. There are no pulsatile masses or bruits. Noliver enlargement. Bowel sounds are active. Extremities: Trace edema.Pulses are intact and symmetrical. No clubbing or cyanosis. No femoralbruits. Neurologic: Grossly normal motor and sensory. S/he is alert andoriented x4.EKG demonstrates sinus rhythm.There is a right bundle branch block. Since prior study, QRS duration hasreturned to baseline.Recent labs were reviewed. Renal function is mildly impaired. LDL was 114.Electronically Signed:Moriah Ford 2017 3:04 [facility]:Jose De Jesus Harrington MD [facility] CNOVon 11-07-2017 CNOV Office Visit (AGCARDWST) YOBANI GOODEN ([id number]) 1945 [facility] Time Provider Qpomvcejgy92/8/17 11:30 AM INDRA STONEARDWSLaila During your visit today, we recorded the following information about you: Pulse Blood pressure Weight Height 62/minute 148/78 127.6 kg 1.626 Alie Stone MD 11/11/2017 12:20 PM SignedPERTINENT CARDIAC HISTORYASHD - PCI LAD 2008HTNHLDMADHERENCE TO GUIDELINESACE-I or ARB for HF with prior LVEFANDlt;40 (NQF 0081) - N/AASA or Plavix for ASHD (NQF 0067) - metBeta alex for ASHD with prior [place] or prior LVEFANDlt;40 (NQF 0070) - metBeta alex for HF with prior LVEFANDlt;40 (NQF 0083) - N/AACE-I or ARB for ASHD with DM or prior LVEFANDlt;40 (NQF 0066) - metStatin therapy for ASHD or FHL or DM - metBMI documented and plan if ANDgt;25 (NQF 0421) - lifestyle recommendation formTobacco use screening and referral (NQF 0028) - lifestyle recommendation formRecommendation for whole food, plant based diet - lifestyle recommendation formCLINICAL IMPRESSION/PLAN:Yobani S Wohlford has clinically stable coronary disease. By report, she had abilateral embolism, although predominantly right upper lobe. There has been aslight widening of her QRS suggesting possible right ventricular strain,although she has no evidence of right ventricular dysfunction on exam.She's been advised to continue 6 months total of anticoagulation. I've askedher to continue present medication and call if she has increased chest pain orshortness of breath. She reports that her exercise tolerance is getting closeto baseline.I will see her in 8 months or as needed.Written and verbal health teaching given to patient, patient verbalizesunderstanding and agrees with treatment plan.This note was generated using CONWEAVER voice recognition system, and there may besome incorrect words, spellings, and punctuation that were not noted inchecking the note before saving.DIAGNOSIS FOR VISIT:ASHDHISTORY OF PRESENT ILLNESSYobani Reid returns for follow-up of her coronary disease andhypertension.She has done well over the last 8 months with respect to her cardiac issues.She took a long trip to [place] for over the summer and developed pulmonaryembolism, which is being treated with warfarin . She reports that her shortnessof breath is improving. She's had stable edema.She denies chest pain. She's had no syncope, palpitations, TIAs, amaurosis orclaudication.ALLERGIES:ALLERG IESAllergen Reactions- Adhesive Tape (Herminia* Other: See Comments Burning and redness where tape touches skin- Amoxicillin Rash- Ampicillin Rash- Keflex [Cephalexin] Rash- Niacin Rash flushing- Penicillins Rash- Sulfa (Sulfonamide * RashCURRENT OUTPATIENT MEDICATIONS:Fenofibrate (LOFIBRA) 160 mg tablet TAKE ONE TABLET BY MOUTH EVERY DAYmetFORMIN ER (GLUCOPHAGE XR) 500 mg 24 hr tablet Take 1 tablet by mouth oncedaily. With mealFosinopril Sodium 40 mg tablet Take 1 tablet by mouth once daily.warfarin (COUMADIN) 2.5 mg tablet Take 1-2 tablets by mouth daily as directed.oxybutynin ER (DITROPAN XL) 15 mg 24 hr Extended Rel Tab Take 1 tablet by mouthonce daily.atorvastatin (LIPITOR) 40 mg tablet Take 1 tablet by mouth daily at bedtime.For cholesterol.atenolol (TENORMIN) 25 mg tablet Take 1 tablet by mouth once daily.magnesium oxide (MAG-OX) 400 mg tablet Take 2 tablets by mouth twice daily.levothyroxine (SYNTHROID) 112 mcg tablet Take 1 tablet by mouth once daily.fluticasone (FLONASE) 50 mcg/actuation nasal spray Use 1 [place] in each nostrilonce daily.blood sugar diagnostic (FREESTYLE LITE STRIPS) test strip TEST BLOOD SUGAR upto 1 TIMES PER DAY. DX : E11.9. INSULIN DEP: no.Lancets lancets Use as instructed--Check sugars up to once daily. DX: E11.9,Not insulin requiringhydrocortisone 2.5 % ointment Apply 1 application to affected area twice daily.Azelastine (ASTEPRO) 0.15 % (205.5 mcg) spry Use 2 Sprays in each nostril twicedaily as needed.OTC PRODUCT CALCIUM 600 MG DAILY.nitroglycerin sublingual 0.4 mg SUBLINGUAL SL tablet Dissolve 1 tablet underthe tongue as needed. DISSOLVE ON TONGUE FOR CHEST PAIN. IF NO PAIN RELIEF,CALL 911aspirin(ECOTRIN LOW STRENGTH 81 MG TAB) Take one(1) tablet daily.oxymetazoline hcl(AFRIN SINUS NO DRIP 0.05 % NASAL MIST) as necessaryTHERAPEUTIC MULTIVITAMIN TAB Take one tablet by mouth daily.PHYSICAL EXAMINATION:VITAL SIGNS: BP 148/78 Pulse 62 Ht 5' 4ANDquot; (1.63m) Wt 281 lb 4.8 oz(127.6kg) BMI 48.26 kg/(m2).Chest: Clear to percussion and auscultation. Trachea is midline. Air entry isequal. Cardiac: Regular rhythm. S1 and S2 are normal. PMI is nondisplaced.There is a soft systolic ejection murmur. Carotids are brisk without bruits.JVP is less than 10 cm. Abdomen: Soft and nontender. There are no pulsatilemasses or bruits. No liver enlargement. Bowel sounds are active.Extremities: Trace edema. Pulses are intact and symmetrical.EKG shows sinus rhythm. There is right bundle branch block. Since priortracing, QRS has increased slightly.Electronically Signed:Evita Ford 2016 11:49 [facility]: Felipe Aranda MD 11/07/2017 11:49 AM SignedLIFESTYLE CHANGEA healthy lifestyle is the most important component of your overall treatmentplan. Please give serious thought to the following areas and commit to makinglong term changes.EAT A WHOLE FOOD, PLANT BASED DIETThe nutrition your body gets is more important than the medicine you take.What matters most is the overall way you eat. We encourage you to minimize theuse of animal products (which include dairy and all meats except fatty fish)and use whole, unprocessed plant foods to provide your protein, vitamins andother nutrients. We have a lot of information to share with you on this topic. We also hold Shared Medical Appointments, where you can come visit with in the company of other patients and spend over an hour talking aboutthe challenges of changing the way you eat. This is not a ANDquot;dietANDquot;.It is a way of life that you will keep with you.EXERCISE REGULARLYIt is not important to spend hours in the gym, lifting weights and perspiringheavily. A total of 2-3 hours per week of aerobic (causing you to bemoderately short of breath) exercise is sufficient to improve your health.Talk to us before you begin a new exercise program, if you have heart diseaseor experience shortness of breath or chest pain.REDUCE STRESSChronic emotional and physical stress leads to disease. Ways of reducingstress include meditation, visualization, prayer, yoga and other forms ofrelaxation therapy. Consistency is the munoz. Find a technique that works foryou and do it every day.CULTIVATE RELATIONSHIPSLoneliness and isolation have a major negative impact on health. Seek outothers who can love, care for and nurture you. Avoid hurtful relationships.MAINTAIN IDEAL BODY WEIGHTThe best way to do this is to do all the things above. Our bodies naturallyfind the right weight if we keep moving and feed ourselves the right food. Ifyour BMI is greater than 25, we strongly recommend a referral to a weightmanagement program. Please speak to us or your family physician aboutavailable programs.AVOID NICOTINE IN ALL FORMSThis includes all tobacco products, whether chewed, smoked, vaped, or rubbed onthe skin. Smoking cessation programs, which can make use of tobaccosubstitutes, medications to suppress cravings and behavior management, areavailable. Please contact your family physician about programs in your area.Referring Provider: INDRA STONE [[id number]]Allergies As of Date: 11/07/2017 Noted Allergy ReactionADHESIVE TAPE (ROSINS) 11/11/2005 14 - Other: See Comments Comments: Burning and redness where tape touches skinAMOXICILLIN 11/11/2005 2 - RashAMPICILLIN 11/11/2005 2 - RashKEFLEX (CEPHALEXIN) 11/11/2005 2 - RashNIACIN 11/11/2005 2 - Rash Comments: flushingPENICILLINS 09/28/2009 2 - RashSULFA (SULFONAMIDE ANTIBIOTICS) 11/18/2005 2 - RashDate Reviewed: 11/07/2017Reviewed by: Sudarshan Stein) PERLA Fung - Fully AssessedReason for Visit: Follow Up [171] Cmt: 8 monthPrimary Visit Diagnosis:ASHD (arteriosclerotic heart disease) [I25.10]Order(s):ECG B/O W INTERP (MED OFFICE) [ECG06] Order #: [id number] as of 11/07/2017 Sig: FENOFIBRATE 160 MG TABLET TAKE ONE TABLET BY MOUTH EVER* METFORMIN ER 500 MG TABLET,EX* Take 1 tablet by mouth once d* FOSINOPRIL 40 MG TABLET Take 1 tablet by mouth once d* WARFARIN 2.5 MG TABLET Take 1-2 tablets by mouth waqar* OXYBUTYNIN CHLORIDE ER 15 MG * Take 1 tablet by mouth once d* ATORVASTATIN 40 MG TABLET Take 1 tablet by mouth daily * ATENOLOL 25 MG TABLET Take 1 tablet by mouth once d* MAGNESIUM OXIDE 400 MG TABLET Take 2 tablets by mouth twice* LEVOTHYROXINE 112 MCG TABLET Take 1 tablet by mouth once d* FLUTICASONE 50 MCG/ACTUATION * Use 1 [place] in each nostril o* BLOOD SUGAR DIAGNOSTIC STRIPS TEST BLOOD SUGAR up to 1 NUBIA* LANCETS Use as instructed--Check suga* HYDROCORTISONE 2.5 % TOPICAL * Apply 1 application to affect* AZELASTINE 0.15 % (205.5 MCG)* Use 2 Sprays in each nostril * OTC PRODUCT CALCIUM 600 MG DAILY. NITROGLYCERIN 0.4 MG SUBLINGU* Dissolve 1 tablet under the t* ECOTRIN LOW STRENGTH 81 MG TA* Take one(1) tablet daily. AFRIN NO DRIP (OXYMETAZOLINE)* as necessary THERAPEUTIC MULTIVITAMIN TABL* Take one tablet by mouth temi*Problem List As Of Date 11/07/2017 Noted Resolved Essential hypertension [I10] Mixed hyperlipidemia [E78.2] Postmenopausal Atrophic Vaginitis [N95.2] ALLERGIC RHINITIS NOS [J30.9] 06/06/2009 More... 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 Other instructions from your clinician: LIFESTYLE CHANGE A healthy lifestyle is the most important component of your overall treatment plan. 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 EAT A WHOLE FOOD, PLANT BASED DIET The nutrition your body gets is more important than the medicine you take. What matters most is the overall way you eat. We encourage you to minimize the use of animal products (which include dairy and all meats except fatty fish) and use whole, unprocessed plant foods to provide your protein, vitamins and other nutrients. We have a lot of information to share with you on this topic. We also hold Shared Medical Appointments, where you can come visit with Dr. Stone in the company of other patients and spend over an hour talking about the challenges of changing the way you eat. This is not a diet. It is a way of life that you will keep with you. EXERCISE REGULARLY It is not important to spend hours in the gym, lifting weights and perspiring heavily. A total of 2-3 hours per week of aerobic (causing you to be moderately short of breath) exercise is sufficient to improve your health. Talk to us before you begin a new exercise program, if you have heart disease or experience shortness of breath or chest pain. REDUCE STRESS Chronic emotional and physical stress leads to disease. Ways of reducing stress include meditation, visualization, prayer, yoga and other forms of relaxation therapy. Consistency is the munoz. Find a technique that works for you and do it every day. CULTIVATE RELATIONSHIPS Loneliness and isolation have a major negative impact on health. Seek out others who can love, care for and nurture you. Avoid hurtful relationships. MAINTAIN IDEAL BODY WEIGHT The best way to do this is to do all the things above. Our bodies naturally find the right weight if we keep moving and feed ourselves the right food. If your BMI is greater than 25, we strongly recommend a referral to a weight management program. Please speak to us or your family physician about available programs. AVOID NICOTINE IN ALL FORMS This includes all tobacco products, whether chewed, smoked, vaped, or rubbed on the skin. Smoking cessation programs, which can make use of tobacco substitutes, medications to suppress cravings and behavior management, are available. Please contact your family physician about programs in your area.Classic SmartForms filed during this visit:Extended VitalsEncounter Number: [id number] Status:Closed by INDRA STONE MD on 11/11/17 [facility] PROGRESSon 11-07-2017 PROGRESS HNO ID: [id number] thor: Indra Villela: (none)Author Type: PhysicianType: Progress NotesFiled: 11/11/2017 12:20 PMNote Text:PERTINENT CARDIAC HISTORYASHD - PCI LAD 2009HTNHLDMADHERENCE TO GUIDELINESACE-I or ARB for HF with prior LVEF<40 (NQF 0081) - N/AASA or Plavix for ASHD (NQF 0067) - metBeta alex for ASHD with prior [place] or prior LVEF<40 (NQF 0070) - metBeta alex for HF with prior LVEF<40 (NQF 0083) - N/AACE-I or ARB for ASHD with DM or prior LVEF<40 (NQF 0066) - metStatin therapy for ASHD or FHL or DM - metBMI documented and plan if >25 (NQF 0421) - lifestyle recommendation formTobacco use screening and referral (NQF 0028) - lifestyle recommendationformRecommendatio n for whole food, plant based diet - lifestyle recommendationformCLINICAL IMPRESSION/PLAN:Yobani Reid has clinically stable coronary disease. By report, shehad a bilateral embolism, although predominantly right upper lobe. Therehas been a slight widening of her QRS suggesting possible rightventricular strain, although she has no evidence of right ventriculardysfunction on exam.She's been advised to continue 6 months total of anticoagulation. I'veasked her to continue present medication and call if she has increasedchest pain or shortness of breath. She reports that her exercise toleranceis getting close to baseline.I will see her in 8 months or as needed.Written and verbal health teaching given to patient, patient verbalizesunderstanding and agrees with treatment plan.This note was generated using CONWEAVER voice recognition system, and theremay be some incorrect words, spellings, and punctuation that were notnoted in checking the note before saving.DIAGNOSIS FOR VISIT:ASHISTORY OF PRESENT ILLNESSYobani Reid returns for follow-up of her coronary disease andhypertension.She has done well over the last 8 months with respect to her cardiacissues. She took a long trip to [place] for over the summer and developedpulmonary embolism, which is being treated with warfarin . She reportsthat her shortness of breath is improving. She's had stable edema.She denies chest pain. She's had no syncope, palpitations, TIAs, amaurosisor claudication.ALLERGIES:ALLERGADILIA Rodriguez Reactions- Adhesive Tape ([place]erminia* Other: See Comments Burning and redness where tape touches skin- Amoxicillin Rash- Ampicillin Rash- Keflex [Cephalexin] Rash- Niacin Rash flushing- Penicillins Rash- Sulfa (Sulfonamide * RashCURRENT OUTPATIENT MEDICATIONS:Fenofibrate (LOFIBRA) 160 mg tablet TAKE ONE TABLET BY MOUTH EVERY DAYmetFORMIN ER (GLUCOPHAGE XR) 500 mg 24 hr tablet Take 1 tablet by mouthonce daily. With mealFosinopril Sodium 40 mg tablet Take 1 tablet by mouth once daily.warfarin (COUMADIN) 2.5 mg tablet Take 1-2 tablets by mouth daily asdirected.oxybutynin ER (DITROPAN XL) 15 mg 24 hr Extended Rel Tab Take 1 tablet bymouth once daily.atorvastatin (LIPITOR) 40 mg tablet Take 1 tablet by mouth daily atbedtime. For cholesterol.atenolol (TENORMIN) 25 mg tablet Take 1 tablet by mouth once daily.magnesium oxide (MAG-OX) 400 mg tablet Take 2 tablets by mouth twicedaily.levothyroxine (SYNTHROID) 112 mcg tablet Take 1 tablet by mouth oncedaily.fluticasone (FLONASE) 50 mcg/actuation nasal spray Use 1 [place] in eachnostril once daily.blood sugar diagnostic (FREESTYLE LITE STRIPS) test strip TEST BLOOD SUGARup to 1 TIMES PER DAY. DX : E11.9. INSULIN DEP: no.Lancets lancets Use as instructed--Check sugars up to once daily. DX:E11.9, Not insulin requiringhydrocortisone 2.5 % ointment Apply 1 application to affected area twicedaily.Azelastine (ASTEPRO) 0.15 % (205.5 mcg) spry Use 2 Sprays in each nostriltwice daily as needed.OTC PRODUCT CALCIUM 600 MG DAILY.nitroglycerin sublingual 0.4 mg SUBLINGUAL SL tablet Dissolve 1 tabletunder the tongue as needed. DISSOLVE ON TONGUE FOR CHEST PAIN. IF NO PAINRELIEF, CALL 911aspirin(ECOTRIN LOW STRENGTH 81 MG TAB) Take one(1) tablet daily.oxymetazoline hcl(AFRIN SINUS NO DRIP 0.05 % NASAL MIST) as necessaryTHERAPEUTIC MULTIVITAMIN TAB Take one tablet by mouth daily.PHYSICAL EXAMINATION:VITAL SIGNS: BP 148/78 Pulse 62 Ht 5' 4 (1.63m) Wt 281 lb 4.8 oz(127.6kg) BMI 48.26 kg/(m2).Chest: Clear to percussion and auscultation. Trachea is midline. Airentry is equal. Cardiac: Regular rhythm. S1 and S2 are normal. PMI isnondisplaced. There is a soft systolic ejection murmur. Carotids arebrisk without bruits. JVP is less than 10 cm. Abdomen: Soft andnontender. There are no pulsatile masses or bruits. No liverenlargement. Bowel sounds are active. Extremities: Trace edema. Pulsesare intact and symmetrical.EKG shows sinus rhythm. There is right bundle branch block. Since priortracing, QRS has increased slightly.Electronically Signed:Indrajayde Stone MDDeceoctavio 2016 11:49 [facility]: Jose De Jesus Harrington MD [facility] Vital Signs Date Time Vital Sign Value Performing Clinician Facility 08-08-2025 13:18-0400 Body height 162.[address] Jose De Jesus Harrington MD Work Phone: 5(951)392-746687 [place] [address] 08-08-2025 13:18-0400 Body mass index (BMI) [Ratio] 41.5 kg/m2 Dr. Jose De Jesus Harrington MD Work Phone: 4(563)138-697387 [place] [address] 08-08-2025 13:18-0400 Body weight 109.[address] Jose De Jesus Harrington MD Work Phone: 5(782)169-455287 [place] [address] 08-08-2025 13:18-0400 Diastolic blood pressure 76 mm[Hg] Dr. Jose De Jesus Harrington MD Work Phone: 7(856)020-584187 [place] [address] 08-08-2025 13:18-0400 Heart rate 68 /min Dr. Jose De Jesus Harrington MD Work Phone: 6(427)061-782187 [place] [address] 08-08-2025 13:18-0400 Systolic blood pressure 154 mm[Hg] Dr. Jose De Jesus Harrington MD Work Phone: 8(550)744-039187 [place] [address] 08-04-2025 14:46-0400 Body height 162.[address] Jose De Jesus Harrington MD Work Phone: 2(368)804-219687 [place] [address] 08-04-2025 14:46-0400 Body mass index (BMI) [Ratio] 41.5 kg/m2 Dr. Jose De Jesus Harrington MD Work Phone: 7(713)632-548587 [place] [address] 08-04-2025 14:46-0400 Body weight 109.[address] Jose De Jesus Harrington MD Work Phone: 0(284)138-315087 [place] [address] 08-04-2025 14:46-0400 Diastolic blood pressure 67 mm[Hg] Dr. Jose De Jesus Harrington MD Work Phone: 6(318)571-521587 [place] [address] 08-04-2025 14:46-0400 Heart rate 57 /min Dr. Jose De Jesus Harrington MD Work Phone: 4(284)261-915911 [place] [address] 08-04-2025 14:46-0400 Respiratory rate 18 /min Dr. Jose De Jesus Harrington MD Work Phone: 4(345)944-611087 [place] [address] 08-04-2025 14:46-0400 Systolic blood pressure 125 mm[Hg] Dr. Jose De Jesus Harrington MD Work Phone: 4(019)539-191187 [place] [address] 07-26-2025 11:43-0400 Body mass index (BMI) [Ratio] 42.5 kg/m2 Dr. Jose De Jesus Harrington MD Work Phone: 9(443)375-765687 [place] [address] 07-26-2025 11:43-0400 Body temperature 98.2 [degF] Dr. Jose De Jesus Harrington MD Work Phone: 7(895)150-787487 [place] [address] 07-26-2025 11:43-0400 Body weight 112.[address] Jose De Jesus Harrington MD Work Phone: 1(642)021-904987 [place] [address] 07-26-2025 11:43-0400 Diastolic blood pressure 78 mm[Hg] Dr. Jose De Jesus Harrington MD Work Phone: 0(624)632-296587 [place] [address] 07-26-2025 11:43-0400 Respiratory rate 68 /min Dr. Jose De Jesus Harrington MD Work Phone: 2(644)693-392187 [place] [address] 07-26-2025 11:43-0400 Systolic blood pressure 122 mm[Hg] Dr. Jose De Jesus Harrington MD Work Phone: 8(346)871-246587 [place] [address] 07-12-2025 09:59-0400 Body height 162.[address] Jose De Jesus Harrington MD Work Phone: 5(424)842-039387 [place] [address] 07-12-2025 09:59-0400 Body mass index (BMI) [Ratio] 42.5 kg/m2 Dr. Jose De Jesus Harrington MD Work Phone: 5(076)889-255487 [place] [address] 07-12-2025 09:59-0400 Body weight 112.[address] Jose De Jesus Harrington MD Work Phone: 7(589)029-066787 [place] [address] 07-12-2025 09:59-0400 Diastolic blood pressure 75 mm[Hg] Dr. Jose De Jesus Harrington MD Work Phone: 1(751)127-093811 [place] [address] 07-12-2025 09:59-0400 Heart rate 59 /min Dr. Jose De Jesus Harrington MD Work Phone: 3(110)490-325411 [place] [address] 07-12-2025 09:59-0400 Systolic blood pressure 143 mm[Hg] Dr. Jose De Jesus Harrington MD Work Phone: 7(909)652-358211 [place] [address] 04-19-2025 08:22-0400 Body mass index (BMI) [Ratio] 43.09 kg/m2 Olimpia Jena DIRECT SUPPORT STAFF.COMPENSATION DIRECTOR Work Phone: [facility] 04-19-2025 08:22-0400 Body weight 112.1 kg Olimpia Jena DIRECT SUPPORT STAFF.COMPENSATION DIRECTOR Work Phone: 2(262)468-077057 [place] [address] 04-19-2025 08:22-0400 Diastolic blood pressure 60 mm[Hg] Olimpia Jena DIRECT SUPPORT STAFF.COMPENSATION DIRECTOR Work Phone: [facility] 04-19-2025 08:22-0400 Heart rate 54 /min Olimpia Jena DIRECT SUPPORT STAFF.COMPENSATION DIRECTOR Work Phone: [facility] 04-19-2025 08:22-0400 SaO2% (BldA) [Mass fraction] 98 % Olimpia Jena DIRECT SUPPORT STAFF.COMPENSATION DIRECTOR Work Phone: [facility] 04-19-2025 08:22-0400 Systolic blood pressure 128 mm[Hg] Olimpia Jena DIRECT SUPPORT STAFF.COMPENSATION DIRECTOR Work Phone: [facility] 02-09-2025 13:54-0400 Body height 162.[address] Jose De Jesus Harrington MD Work Phone: [facility] 02-09-2025 13:54-0400 Body mass index (BMI) [Ratio] 42.5 kg/m2 Dr. Jose De Jesus Harrington MD Work Phone: 1(413)341-795411 [place] [address] 02-09-2025 13:54-0400 Body weight 112.[address] Jose De Jesus Harrington MD Work Phone: 0(948)380-856211 [place] [address] 02-09-2025 13:54-0400 Diastolic blood pressure 76 mm[Hg] Dr. Jose De Jesus Harrington MD Work Phone: [facility] 02-09-2025 13:54-0400 Heart rate 58 /min Dr. Jose De Jesus Harrington MD Work Phone: [facility] 02-09-2025 13:54-0400 Respiratory rate 16 /min Dr. Jose De Jesus Harrington MD Work Phone: [facility] 02-09-2025 13:54-0400 Systolic blood pressure 148 mm[Hg] Dr. Jose De Jesus Harrington MD Work Phone: [facility] 11-03-2024 08:55-0500 Body mass index (BMI) [Ratio] 43.59 kg/m2 Roseann Glenn DIRECT SUPPORT STAFF.COMPENSATION DIRECTOR Work Phone: [facility] 11-03-2024 08:55-0500 Body weight 113.4 kg Roseann Glenn DIRECT SUPPORT STAFF.COMPENSATION DIRECTOR Work Phone: [facility] 11-03-2024 08:55-0500 Diastolic blood pressure 77 mm[Hg] Roseann Glenn DIRECT SUPPORT STAFF.COMPENSATION DIRECTOR Work Phone: [facility] 11-03-2024 08:55-0500 Heart rate 74 /min Roseann Glenn DIRECT SUPPORT STAFF.COMPENSATION DIRECTOR Work Phone: [facility] 11-03-2024 08:55-0500 SaO2% (BldA) [Mass fraction] 98 % Roseann Glenn DIRECT SUPPORT STAFF.COMPENSATION DIRECTOR Work Phone: [facility] 11-03-2024 08:55-0500 Systolic blood pressure 139 mm[Hg] Roseann Glenn DIRECT SUPPORT STAFF.COMPENSATION DIRECTOR Work Phone: [facility] 10-20-2024 08:19-0500 Body mass index (BMI) [Ratio] 43.71 kg/m2 Jose De Jesus Harrington MD Work Phone: [facility] 10-20-2024 08:19-0500 Body weight 113.7 kg Jose De Jesus Harrington MD Work Phone: [facility] 10-20-2024 08:19-0500 Diastolic blood pressure 60 mm[Hg] Jose De Jesus Harrington MD Work Phone: [facility] 10-20-2024 08:19-0500 Heart rate 58 /min Jose De Jesus Harrington MD Work Phone: [facility] 10-20-2024 08:19-0500 Respiratory rate 16 /min Jose De Jesus Harrington MD Work Phone: [facility] 10-20-2024 08:19-0500 Systolic blood pressure 122 mm[Hg] Jose De Jesus Harrington MD Work Phone: [facility] 10-08-2024 10:15-0500 Body mass index (BMI) [Ratio] 43.36 kg/m2 Herbert Jay DIRECT SUPPORT STAFF.GARDENING SUPERVISOR Work Phone: [facility] 10-08-2024 10:15-0500 Body weight 112.8 kg Herbert Jay DIRECT SUPPORT STAFF.GARDENING SUPERVISOR Work Phone: [facility] 10-08-2024 10:15-0500 Diastolic blood pressure 75 mm[Hg] Herbert Jay DIRECT SUPPORT STAFF.GARDENING SUPERVISOR Work Phone: [facility] 10-08-2024 10:15-0500 Heart rate 56 /min Herbert Jay DIRECT SUPPORT STAFF.GARDENING SUPERVISOR Work Phone: [facility] 10-08-2024 10:15-0500 Respiratory rate 16 /min Herbert Jay DIRECT SUPPORT STAFF.GARDENING SUPERVISOR Work Phone: [facility] 10-08-2024 10:15-0500 Systolic blood pressure 126 mm[Hg] Herbert Jay DIRECT SUPPORT STAFF.GARDENING SUPERVISOR Work Phone: [facility] 10-04-2024 13:36-0500 Body mass index (BMI) [Ratio] 42.28 kg/m2 Herbert Jay DIRECT SUPPORT STAFF.GARDENING SUPERVISOR Work Phone: [facility] 10-04-2024 13:36-0500 Body temperature 97.5 [degF] Herbert Jay DIRECT SUPPORT STAFF.GARDENING SUPERVISOR Work Phone: [facility] 10-04-2024 13:36-0500 Body weight 110 kg Herbert Jay DIRECT SUPPORT STAFF.GARDENING SUPERVISOR Work Phone: [facility] 10-04-2024 13:36-0500 Diastolic blood pressure 58 mm[Hg] Herebrt Jay DIRECT SUPPORT STAFF.GARDENING SUPERVISOR Work Phone: [facility] 10-04-2024 13:36-0500 Heart rate 53 /min Herbert Jay DIRECT SUPPORT STAFF.GARDENING SUPERVISOR Work Phone: [facility] 10-04-2024 13:36-0500 Respiratory rate 16 /min Herbert Jay DIRECT SUPPORT STAFF.GARDENING SUPERVISOR Work Phone: [facility] 10-04-2024 13:36-0500 Systolic blood pressure 107 mm[Hg] Herbert Jay DIRECT SUPPORT STAFF.GARDENING SUPERVISOR Work Phone: [facility] 07-27-2024 15:40-0400 Body mass index (BMI) [Ratio] 44.17 kg/m2 Jose De Jesus Harrington MD Work Phone: [facility] 07-27-2024 15:40-0400 Body temperature 96.8 [degF] Jose De Jesus Harrington MD Work Phone: [facility] 07-27-2024 15:40-0400 Body weight 114.9 kg Jose De Jesus Harrington MD Work Phone: [facility] 07-27-2024 15:40-0400 Diastolic blood pressure 58 mm[Hg] Jose De Jesus Harrington MD Work Phone: [facility] Comment on above: rechecked after checked on her own cuff- -138/75 07-27-2024 15:40-0400 Heart rate 58 /min Jose De Jesus Harrington MD Work Phone: [facility] 07-27-2024 15:40-0400 Respiratory rate 16 /min Jose De Jesus Harrington MD Work Phone: [facility] 07-27-2024 15:40-0400 SaO2% (BldA) [Mass fraction] 98 % Jose De Jesus Harrington MD Work Phone: [facility] 07-27-2024 15:40-0400 Systolic blood pressure 138 mm[Hg] Jose De Jesus Harrington MD Work Phone: [facility] Comment on above: rechecked after checked on her own cuff- -138/75 04-19-2024 13:52-0400 Body mass index (BMI) [Ratio] 44.46 kg/m2 Olimipa Jena DIRECT SUPPORT STAFF.COMPENSATION DIRECTOR Work Phone: [facility] 04-19-2024 13:52-0400 Body weight 115.67 kg Olimpia Jena DIRECT SUPPORT STAFF.COMPENSATION DIRECTOR Work Phone: [facility] 04-19-2024 13:52-0400 Diastolic blood pressure 64 mm[Hg] Olimpia Jena DIRECT SUPPORT STAFF.COMPENSATION DIRECTOR Work Phone: [facility] 04-19-2024 13:52-0400 Heart rate 55 /min Olimpia Jena DIRECT SUPPORT STAFF.COMPENSATION DIRECTOR Work Phone: [facility] 04-19-2024 13:52-0400 SaO2% (BldA) [Mass fraction] 97 % Olimpia Jena DIRECT SUPPORT STAFF.COMPENSATION DIRECTOR Work Phone: [facility] 04-19-2024 13:52-0400 Systolic blood pressure 138 mm[Hg] Olimpia Jena DIRECT SUPPORT STAFF.COMPENSATION DIRECTOR Work Phone: [facility] 10-17-2023 08:08-0500 Body temperature 96.3 [degF] Jose De Jesus Harrington MD Work Phone: [facility] 10-17-2023 08:08-0500 Body weight 113.85 kg Jose De Jesus Harrington MD Work Phone: [facility] 10-17-2023 08:08-0500 Diastolic blood pressure 68 mm[Hg] Jose De Jesus Harrington MD Work Phone: [facility] 10-17-2023 08:08-0500 Heart rate 55 /min Jose De Jesus Harrington MD Work Phone: [facility] 10-17-2023 08:08-0500 Respiratory rate 18 /min Jose De Jesus Harrington MD Work Phone: [facility] 10-17-2023 08:08-0500 SaO2% (BldA) [Mass fraction] 98 % Jose De Jesus Harrington MD Work Phone: [facility] 10-17-2023 08:08-0500 Systolic blood pressure 118 mm[Hg] Jose De Jesus Harrington MD Work Phone: [facility] 10-13-2023 12:37-0500 Body weight 113.85 kg Herbert Jay DIRECT SUPPORT STAFF.GARDENING SUPERVISOR Work Phone: [facility] 10-13-2023 12:37-0500 Diastolic blood pressure 68 mm[Hg] Herbert Jay DIRECT SUPPORT STAFF.GARDENING SUPERVISOR Work Phone: [facility] 10-13-2023 12:37-0500 Heart rate 83 /min Herbert Jay DIRECT SUPPORT STAFF.GARDENING SUPERVISOR Work Phone: [facility] 10-13-2023 12:37-0500 Respiratory rate 16 /min Herbert Jay DIRECT SUPPORT STAFF.GARDENING SUPERVISOR Work Phone: [facility] 10-13-2023 12:37-0500 Systolic blood pressure 125 mm[Hg] Herbert Jay DIRECT SUPPORT STAFF.GARDENING SUPERVISOR Work Phone: [facility] 10-09-2023 20:21-0500 Body temperature 98.4 [degF] Dr. Jose De Jesus Harrington Work Phone: [facility] 10-09-2023 20:21-0500 Diastolic blood pressure 56 mm[Hg] Dr. Jose De Jesus Harrington Work Phone: [facility] 10-09-2023 20:21-0500 Heart rate 65 /min Dr. Jose De Jesus Harrington Work Phone: [facility] 10-09-2023 20:21-0500 Respiratory rate 16 /min Dr. Jose De Jesus Harrington Work Phone: [facility] 10-09-2023 20:21-0500 SaO2% (BldA) [Mass fraction] 96 % Dr. Jose De Jesus Harrington Work Phone: 4(608)561-579211 [place] [address] 10-09-2023 20:21-0500 Systolic blood pressure 132 mm[Hg] Dr. Jose De Jesus Harrington Work Phone: 2(581)492-092187 [place] [address] 10-06-2023 06:00-0500 Body mass index (BMI) [Ratio] 42.8 kg/m2 Dr. Jose De Jesus Harrington Work Phone: 7(038)154-789487 [place] [address] 10-06-2023 06:00-0500 Body weight 113.[address] Jose De Jesus Harrington Work Phone: 9(518)007-047587 [place] [address] 09-30-2023 20:10-0400 Inhaled oxygen concentration 21 % Dr. Jose De Jesus Harrington Work Phone: 5(176)765-757987 [place] [address] 09-27-2023 12:39-0400 Body height 162.[address] Jose De Jesus Harrington Work Phone: 0(557)662-821787 [place] [address] 09-26-2023 10:11-0400 Body weight 115.[address] Jose De Jesus Harrington Work Phone: 0(396)134-659287 [place] [address] 09-26-2023 08:58-0400 Body temperature 97.9 [degF] Dr. Jose De Jesus Harrington Work Phone: 0(143)639-728987 [place] [address] 09-26-2023 08:58-0400 Diastolic blood pressure 65 mm[Hg] Dr. Jose De Jesus Harrington Work Phone: 7(363)328-224211 [place] [address] 09-26-2023 08:58-0400 Heart rate 68 /min Dr. Jose De Jesus Harrington Work Phone: 5(893)392-756887 [place] [address] 09-26-2023 08:58-0400 Respiratory rate 17 /min Dr. Jose De Jesus Harrington Work Phone: 0(198)701-502787 [place] [address] 09-26-2023 08:58-0400 SaO2% (BldA) [Mass fraction] 99 % Dr. Jose De Jesus Harrington Work Phone: 6(184)524-027287 [place] [address] 09-26-2023 08:58-0400 Systolic blood pressure 126 mm[Hg] Dr. Jose De Jesus Harrington Work Phone: 6(003)205-719587 [place] [address] 09-25-2023 22:03-0400 Body mass index (BMI) [Ratio] 45 kg/m2 Dr. Jose De Jesus Harrington Work Phone: 3(986)869-337287 [place] [address] 09-25-2023 21:49-0400 Diastolic blood pressure 72 mm[Hg] Dr. Jose De Jesus Harrington Work Phone: 5(451)816-787587 [place] [address] 09-25-2023 21:49-0400 Systolic blood pressure 154 mm[Hg] Dr. Jose De Jesus Harrington Work Phone: 6(990)945-024987 [place] [address] 09-25-2023 21:40-0400 Respiratory rate 18 /min Dr. Jose De Jesus Harrington Work Phone: 7(723)608-506787 [place] [address] 09-25-2023 17:44-0400 Heart rate 60 /min Dr. Jose De Jesus Harrington Work Phone: 1(627)575-574087 [place] [address] 09-25-2023 17:44-0400 SaO2% (BldA) [Mass fraction] 100 % Dr. Jose De Jesus Harrington Work Phone: 1(277)612-368587 [place] [address] 09-25-2023 17:41-0400 Body height 160.[address] Jose De Jesus Harrington Work Phone: 9(578)004-381487 [place] [address] 09-25-2023 17:41-0400 Body mass index (BMI) [Ratio] 45.1 kg/m2 Dr. Jose De Jesus Harrington Work Phone: 6(765)169-176311 [place] [address] 09-25-2023 17:41-0400 Body temperature 97.7 [degF] Dr. Jose De Jesus Harrington Work Phone: 9(076)514-001411 [place] [address] 09-25-2023 17:41-0400 Body weight 115.[address] Jose De Jesus Harrington Work Phone: 8(588)689-921087 [place] [address] 09-15-2023 08:58-0400 Body height 161.3 cm Britney Fang PA-C Work Phone: 8(814)884-909857 [place] [address] 09-15-2023 08:58-0400 Body temperature 97.59 [degF] Britney Lacon PA-C Work Phone: [facility] 09-15-2023 08:58-0400 Body weight 115.58 kg Britney Lacon PA-C Work Phone: [facility] 09-15-2023 08:58-0400 Diastolic blood pressure 60 mm[Hg] Britney Lacon PA-C Work Phone: [facility] 09-15-2023 08:58-0400 Heart rate 70 /min Britney Lacon PA-C Work Phone: [facility] 09-15-2023 08:58-0400 SaO2% (BldA) [Mass fraction] 96 % Britney Annalisa PA-C Work Phone: [facility] 09-15-2023 08:58-0400 Systolic blood pressure 138 mm[Hg] Britney Annalisa PA-C Work Phone: [facility] 09-01-2023 11:13-0400 Body weight 114.76 kg Olimpia Jena DIRECT SUPPORT STAFF.COMPENSATION DIRECTOR Work Phone: [facility] 09-01-2023 11:13-0400 Diastolic blood pressure 70 mm[Hg] Olimpia Jena DIRECT SUPPORT STAFF.COMPENSATION DIRECTOR Work Phone: [facility] 09-01-2023 11:13-0400 Heart rate 62 /min Olimpia Jena DIRECT SUPPORT STAFF.COMPENSATION DIRECTOR Work Phone: [facility] 09-01-2023 11:13-0400 SaO2% (BldA) [Mass fraction] 97 % Olimpia Jena DIRECT SUPPORT STAFF.COMPENSATION DIRECTOR Work Phone: [facility] 09-01-2023 11:13-0400 Systolic blood pressure 120 mm[Hg] Olimpia Jena DIRECT SUPPORT STAFF.COMPENSATION DIRECTOR Work Phone: [facility] 08-14-2023 11:26-0400 Body mass index (BMI) [Ratio] 43.4 kg/m2 Dr. Jose De Jesus Harrington Work Phone: [facility] 08-14-2023 11:26-0400 Body weight 114.[address] Jose De Jesus Harrington Work Phone: [facility] 08-14-2023 11:26-0400 Diastolic blood pressure 67 mm[Hg] Dr. Jose De Jesus Harrington Work Phone: [facility] 08-14-2023 11:26-0400 Heart rate 52 /min Dr. Jose De Jesus Harrington Work Phone: [facility] 08-14-2023 11:26-0400 Respiratory rate 18 /min Dr. Jose De Jesus Harrington Work Phone: [facility] 08-14-2023 11:26-0400 SaO2% (BldA) [Mass fraction] 96 % Dr. Jose De Jesus Harrington Work Phone: [facility] 08-14-2023 11:26-0400 Systolic blood pressure 149 mm[Hg] Dr. Jose De Jesus Harrington Work Phone: [facility] 03-13-2023 11:49-0400 Body weight 114.31 kg Herbert Jay DIRECT SUPPORT STAFF.GARDENING SUPERVISOR Work Phone: [facility] 03-13-2023 11:49-0400 Diastolic blood pressure 82 mm[Hg] Herbert Jay DIRECT SUPPORT STAFF.GARDENING SUPERVISOR Work Phone: [facility] 03-13-2023 11:49-0400 Heart rate 70 /min Herbert Jay DIRECT SUPPORT STAFF.GARDENING SUPERVISOR Work Phone: [facility] 03-13-2023 11:49-0400 Respiratory rate 16 /min Herbert Jay DIRECT SUPPORT STAFF.GARDENING SUPERVISOR Work Phone: [facility] 03-13-2023 11:49-0400 SaO2% (BldA) [Mass fraction] 96 % Herbert Jay DIRECT SUPPORT STAFF.GARDENING SUPERVISOR Work Phone: [facility] 03-13-2023 11:49-0400 Systolic blood pressure 146 mm[Hg] Herbert Jay DIRECT SUPPORT STAFF.GARDENING SUPERVISOR Work Phone: [facility] 03-08-2023 09:43-0400 Diastolic blood pressure 65 mm[Hg] [facility] 03-08-2023 09:43-0400 Systolic blood pressure 175 mm[Hg] [facility] 03-08-2023 09:40-0400 Body height 162.56 cm [facility] 03-08-2023 09:40-0400 Body mass index (BMI) [Ratio] 43.4 kg/m2 [facility] 03-08-2023 09:40-0400 Body temperature 96.9 [degF] [facility] 03-08-2023 09:40-0400 Body weight 114.75 kg [facility] 03-08-2023 09:40-0400 Heart rate 62 /min [facility] 03-08-2023 09:40-0400 Respiratory rate 18 /min [facility] 03-08-2023 09:40-0400 SaO2% (BldA) [Mass fraction] 98 % [facility] 03-05-2023 17:00-0400 Body mass index (BMI) [Ratio] 44.9 kg/m2 [facility] 03-05-2023 17:00-0400 Body weight 118.6 kg [facility] 03-05-2023 13:58-0400 Body height 162.56 cm [facility] 03-05-2023 13:58-0400 Body temperature 95.8 [degF] [facility] 03-05-2023 13:58-0400 Diastolic blood pressure 89 mm[Hg] [facility] 03-05-2023 13:58-0400 Heart rate 72 /min [facility] 03-05-2023 13:58-0400 Respiratory rate 18 /min [facility] 03-05-2023 13:58-0400 SaO2% (BldA) [Mass fraction] 100 % [facility] 03-05-2023 13:58-0400 Systolic blood pressure 159 mm[Hg] [facility] 02-24-2023 09:44-0400 Body weight 113.85 kg Herbertclare Jay SANDEE.GARDENING SUPERVISOR Work Phone: [facility] 02-24-2023 09:44-0400 Diastolic blood pressure 74 mm[Hg] Herbert Jay DIRECT SUPPORT STAFF.GARDENING SUPERVISOR Work Phone: [facility] 02-24-2023 09:44-0400 Heart rate 74 /min Herbert Jay DIRECT SUPPORT STAFF.GARDENING SUPERVISOR Work Phone: [facility] 02-24-2023 09:44-0400 Respiratory rate 16 /min Herbert Jay DIRECT SUPPORT STAFF.GARDENING SUPERVISOR Work Phone: [facility] 02-24-2023 09:44-0400 SaO2% (BldA) [Mass fraction] 95 % Herbert Jay DIRECT SUPPORT STAFF.GARDENING SUPERVISOR Work Phone: [facility] 02-24-2023 09:44-0400 Systolic blood pressure 136 mm[Hg] Herbert Jay DIRECT SUPPORT STAFF.GARDENING SUPERVISOR Work Phone: [facility] 02-21-2023 14:10-0400 Body temperature 99.3 [degF] Herbert Jay DIRECT SUPPORT STAFF.GARDENING SUPERVISOR Work Phone: [facility] 02-21-2023 14:10-0400 Body weight 114.31 kg Herbert Jay DIRECT SUPPORT STAFF.GARDENING SUPERVISOR Work Phone: [facility] 02-21-2023 14:10-0400 Diastolic blood pressure 72 mm[Hg] Herbert Jay DIRECT SUPPORT STAFF.GARDENING SUPERVISOR Work Phone: [facility] 02-21-2023 14:10-0400 Heart rate 75 /min Herbert Jay DIRECT SUPPORT STAFF.GARDENING SUPERVISOR Work Phone: [facility] 02-21-2023 14:10-0400 Respiratory rate 20 /min Herbert Jay DIRECT SUPPORT STAFF.GARDENING SUPERVISOR Work Phone: [facility] 02-21-2023 14:10-0400 SaO2% (BldA) [Mass fraction] 96 % Herbert Jay DIRECT SUPPORT STAFF.GARDENING SUPERVISOR Work Phone: [facility] 02-21-2023 14:10-0400 Systolic blood pressure 130 mm[Hg] Herbert Jay DIRECT SUPPORT STAFF.GARDENING SUPERVISOR Work Phone: [facility] 07-31-2022 14:27-0400 Body weight 115.67 kg Jose De Jesus Harrington MD Work Phone: [facility] 07-31-2022 14:27-0400 Diastolic blood pressure 64 mm[Hg] Jose De Jesus Harrington MD Work Phone: [facility] 07-31-2022 14:27-0400 Heart rate 59 /min Jose De Jesus Harrington MD Work Phone: [facility] 07-31-2022 14:27-0400 SaO2% (BldA) [Mass fraction] 97 % Jose De Jesus Harrington MD Work Phone: [facility] 07-31-2022 14:27-0400 Systolic blood pressure 126 mm[Hg] Jose De Jesus Harrington MD Work Phone: [facility] 06-18-2022 10:34-0400 Body weight 113.4 kg Herbert Jay DIRECT SUPPORT STAFF.GARDENING SUPERVISOR Work Phone: [facility] 06-18-2022 10:34-0400 Diastolic blood pressure 76 mm[Hg] Herbert Jay DIRECT SUPPORT STAFF.GARDENING SUPERVISOR Work Phone: [facility] 06-18-2022 10:34-0400 Heart rate 58 /min Herbert Jay DIRECT SUPPORT STAFF.GARDENING SUPERVISOR Work Phone: [facility] 06-18-2022 10:34-0400 Respiratory rate 16 /min Herbert Jay DIRECT SUPPORT STAFF.GARDENING SUPERVISOR Work Phone: [facility] 06-18-2022 10:34-0400 Systolic blood pressure 136 mm[Hg] Herbert Jay DIRECT SUPPORT STAFF.GARDENING SUPERVISOR Work Phone: [facility] 04-24-2022 10:40-0400 Body height 162.[address] Jose De Jesus Harrington Work Phone: [facility] Work Phone: 04-24-2022 10:40-0400 Body mass index (BMI) [Ratio] 43.7 kg/m2 Dr. Jose De Jesus Harrington Work Phone: [facility] Work Phone: 04-24-2022 10:40-0400 Body weight 115.[address] Jose De Jesus Harrington Work Phone: [facility] Work Phone: 04-24-2022 10:40-0400 Diastolic blood pressure 65 mm[Hg] Dr. Jose D eJesus Harrington Work Phone: [facility] Work Phone: 04-24-2022 10:40-0400 Heart rate 51 /min Dr. Jose De Jesus Harrington Work Phone: [facility] Work Phone: 04-24-2022 10:40-0400 Respiratory rate 16 /min Dr. Jose De Jesus Harrington Work Phone: [facility] Work Phone: 04-24-2022 10:40-0400 Systolic blood pressure 129 mm[Hg] Dr. Jose De Jesus Harrington Work Phone: [facility] Work Phone: 04-24-2022 10:40-0400 Body height 162.[address] Jose De Jesus Harrington Work Phone: [facility] Work Phone: 04-24-2022 10:40-0400 Body mass index (BMI) [Ratio] 43.7 kg/m2 Dr. Jose De Jesus Harrington Work Phone: [facility] Work Phone: 04-24-2022 10:40-0400 Body weight 115.[address] Jose De Jesus Harrington Work Phone: [facility] Work Phone: 04-24-2022 10:40-0400 Diastolic blood pressure 65 mm[Hg] Dr. Jose De Jesus Harrington Work Phone: [facility] Work Phone: 04-24-2022 10:40-0400 Heart rate 51 /min Dr. Jose De Jesus Harrington Work Phone: [facility] Work Phone: 04-24-2022 10:40-0400 Respiratory rate 16 /min Dr. Jose De Jesus Harrington Work Phone: [facility] Work Phone: 04-24-2022 10:40-0400 Systolic blood pressure 129 mm[Hg] Dr. Jose De Jesus Harrington Work Phone: [facility] Work Phone: 12-18-2021 08:45-0500 Body weight 116.12 kg Jose De Jesus Harrington MD Work Phone: [facility] 12-18-2021 08:45-0500 Diastolic blood pressure 68 mm[Hg] Jose De Jesus Harrington MD Work Phone: [facility] 12-18-2021 08:45-0500 Heart rate 74 /min Jose De Jesus Harrington MD Work Phone: [facility] 12-18-2021 08:45-0500 Systolic blood pressure 122 mm[Hg] Jose De Jesus Harrington MD Work Phone: [facility] Encounters Encounter Date Encounter Type Care Provider Facility Start: 09-06-2025 ambulatory Augustin Moreira Facility:[facility] Start: 08-16-2025 End: 08-16-2025 Anticoagulant drug monitoring [facility] Work Phone: [facility] 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 Juana Peters MD -[facility] Work Phone: Start: 08-08-2025 End: 08-08-[address] Jose De Jesus Harrington MD Work Phone: -[facility] Start: 08-04-2025 End: 08-04-[address] Augustin Moreira MD -[facility] Work Phone: Start: 08-04-2025 End: 08-04-[address] Jose De Jesus Harrington MD Work Phone: -[facility] Start: 07-27-2025 End: 07-27-[address] Jose De Jesus Harrington MD Work Phone: -Laboratory Start: 07-27-2025 End: 07-27-[address] Augustin Moreira MD -Laboratory Work Phone: Start: 07-26-2025 End: 07-26-[address] Juana Peters MD -[facility] Work Phone: Start: 07-26-2025 End: 07-27-[address] Jose De Jesus Harrington MD Work Phone: -[facility] Start: 07-12-2025 End: 07-12-[address] Juana Peters MD -[facility] Work Phone: Start: 07-12-2025 End: 07-12-[address] Jose De Jesus Harrington MD Work Phone: -[facility] Start: 06-30-2025 End: 06-30-2025 Anticoagulant drug monitoring [facility] Work Phone: [facility] [place] Comment on above: nursing home current us e of 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 (Primary Dx); History of pulmonary embolus (PE) Start: 06-30-2025 End: 06-30-2025 ambulatory JOSE DE JESUS HARRINGTON Facility:[facility] Start: 05-31-2025 Non-patient / Non-visit Dr. Juana perez MD -[facility] Work Phone: Start: 05-26-2025 End: 05-26-[address] [facility] Work Phone: [facility] Comment on above: nursing home current us e of 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 (Primary Dx); History of pulmonary embolus (PE) Start: 05-26-2025 End: 05-26-2025 ambulatory [facility] Facility[facility] Start: 05-04-2025 End: 07-04-2025 Follow-up encounter Olimpia Gomez APRN.CNP Work Phone: [facility] [place] Start: 04-28-2025 End: 04-28-[address] [facility] Work Phone: [facility] [place] Comment on above: nursing home current us e of 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 (Primary Dx); History of pulmonary embolus (PE) Start: 04-28-2025 End: 04-28-2025 ambulatory [facility] Facility[facility] Start: 04-19-2025 End: 04-19-2025 Patient encounter procedure Olimpia Gomez APRN.CNP Work Phone: [facility] [place] Comment on above: Hypertensive kidney disease with stage 3b chronic kidney disease (HCC) (Primary Dx); Type 2 diabetes mellitus with stage 3b chronic kidney disease, without long-term current use of insulin (HCC); Essential hypertension; Mixed hyperlipidemia; Acquired hypothyroidism; Vitamin D deficiency; Trigger ring finger of left hand; Morning joint stiffness of hand, left; Morning joint stiffness of right hand; Body mass index (BMI) 40.0-44.9, adult (HCC); PATRICIA (obstructive sleep apnea); Encounter for screening examination for other mental health and behavioral disorders; Encounter for therapeutic drug monitoring; Screening for depression; Temporomandibular joint disorder Start: 04-19-2025 End: 04-19-2025 ambulatory OLIMPIA GOMEZ Facility:[facility] Start: 04-11-2025 End: 04-11-2025 ambulatory Felicity Martinez MA [facility] [place] Start: 04-11-2025 End: 04-11-2025 [facility] [place] Comment on above: Population Health Na vigation Outreach [facility] Start: 04-01-2025 End: 04-01-2025 ambulatory JOSE DE JESUS Jayde ENRIQUEZAMPAS Facility:[facility] Start: 04-01-2025 End: 04-01-2025 Anticoagulant drug monitoring [facility] Work Phone: [facility] Comment on above: nursing home current us e of 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 (Primary Dx); History of pulmonary embolus (PE) Start: 03-03-2025 End: 03-03-2025 Anticoagulant drug monitoring [facility] Work Phone: [facility] Comment on above: nursing home current us e of 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 (Primary Dx); History of pulmonary embolus (PE) Start: 03-03-2025 End: 03-03-2025 ambulatory JOSE DE JESUS D MINAAMPDIAN Facility:[facility] Start: 02-16-2025 End: 02-16-[address] Jose De Jesus Harrington MD Work Phone: [facility] Work Phone: Start: 02-16-2025 End: 02-16-[address] Augustin Moreira MD -Laboratory Work Phone: Start: 02-16-2025 End: 02-16-2025 ambulatory Jose De Jesus Jayde Harrington Facility:[facility] Start: 02-10-2025 End: 02-10-2025 Anticoagulant drug monitoring [facility] Work Phone: [facility] Comment on above: nursing home current us e of 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 (Primary Dx); History of pulmonary embolus (PE) Start: 02-10-2025 End: 02-10-2025 ambulatory JOSE DE JESUS Jayde COLEYAS Facility:[facility] Start: 02-09-2025 End: 02-09-[address] Augustin Moreiar MD -[facility] Work Phone: Start: 02-09-2025 End: 02-09-2025 ambulatory Jose De Jesus D Minaampas Facility:[facility] Start: 01-27-2025 End: 01-27-2025 Anticoagulant drug monitoring [facility] Work Phone: [facility] Comment on above: nursing home current us e of 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 (Primary Dx); History of pulmonary embolus (PE) Start: 01-27-2025 End: 01-27-2025 ambulatory JOSE DE JESUS HARRINGTON Facility:[facility] Start: 01-13-2025 End: 01-13-[address] [facility] Work Phone: [facility] Comment on above: nursing home current us e of 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 (Primary Dx); History of pulmonary embolus (PE) Start: 01-13-2025 End: 01-13-2025 ambulatory [facility] Facility[facility] Start: 12-16-2024 End: 12-16-[address] [facility] Work Phone: [facility] [place] Comment on above: nursing home current us e of 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 (Primary Dx); History of pulmonary embolus (PE) Start: 12-16-2024 End: 12-16-2024 ambulatory [facility] Start: 11-20-2024 End: 11-20-2024 Telephone encounter Tom Velásquez DMD Work Phone: Dentistry Comment on above: Appointment Start: 11-18-2024 End: 11-22-2024 Telephone encounter Jose De Jesus Harrington MD Work Phone: [facility] [place] Comment on above: Orders (poc protime) Start: 11-18-2024 End: 11-18-2024 ambulatory [facility] Facility[facility] Start: 11-18-2024 End: 11-18-[address] 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); History of pulmonary embolus (PE) Start: 11-03-2024 End: 11-08-2024 Patient encounter procedure Roseann Elizabeth APRN.COMPENSATION DIRECTOR Work Phone: Neurology Comment on above: PATRICIA (obstructive sle ep apnea) (Primary Dx); Claustrophobia Start: 11-03-2024 End: 11-03-2024 ambulatory JOSE DE JESUS HARRINGTON Facility:[facility] Start: 10-20-2024 End: 10-20-2024 ambulatory JOSE DE JESUS HARRINGTON Facility:[facility] Start: 10-20-2024 End: 10-20-2024 [facility] [place] 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: 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); History of pulmonary embolus (PE) Start: 10-20-2024 End: 10-20-2024 Office outpatient visit 25 minutes Jose De Jesus Harrington MD Work Phone: [facility] [place] Comment on above: Type 2 diabetes colleen itus with stage 3a chronic kidney disease, without long-term current use of insulin (HCC) (Primary Dx); Trigger ring finger of left hand; Morning joint stiffness of hand, left; Class 3 severe obesity due to excess calories with body mass index (BMI) of 40.0 to 44.9 in adult, unspecified whether serious comorbidity present (HCC); Morning joint stiffness of right hand; Acquired hypothyroidism; nursing home current use of 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 ; Hypomagnesemia; Vitamin D deficiency; Hypercalcemia; Mixed hyperlipidemia; Encounter for therapeutic drug monitoring; Encounter for immunization Start: 10-20-2024 End: 10-20-2024 ambulatory JOSE DE JESUS HARRINGTON Facility:[facility] Start: 10-08-2024 End: 10-08-2024 Office outpatient visit 15 minutes Herbert Jay APRN.CNS Work Phone: [facility] [place] Comment on above: Diarrhea, unspecifie d type (Primary Dx); nursing home current use of 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 ; History of pulmonary embolus (PE); Type 2 diabetes mellitus with stage 3a chronic kidney disease, without long-term current use of insulin (HCC) Start: 10-08-2024 End: 10-08-2024 ambulatory HERBERT JAY Facility:[facility] Start: 10-06-2024 End: 10-07-2024 Telephone encounter Jose De Jesus Harrington MD Work Phone: [facility] [place] Comment on above: Results/INR question s Start: 10-04-2024 End: 10-04-2024 Office outpatient visit 25 minutes Herbert Jay GARDENING SUPERVISOR Work Phone: [facility] [place] Comment on above: Diarrhea, unspecifie d type (Primary Dx); 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 Work Phone: [facility] [place] Comment on above: nursing home current us e of 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 (Primary Dx); History of pulmonary embolus (PE) Start: 09-02-2024 End: 09-02-2024 ambulatory JOSE DE JESUS HARRINGTON Facility:[facility] Start: 08-18-2024 End: 08-18-2024 [facility]ulatory [facility] Start: 08-18-2024 End: 08-18-[address] 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); History of pulmonary embolus (PE) Start: 07-27-2024 End: 07-27-2024 Office outpatient visit 25 minutes Jose De Jesus Harrington MD Work Phone: [facility] [place] Comment on above: Essential hypertensi on (Primary Dx); PATRICIA (obstructive sleep apnea) Start: 07-27-2024 End: 07-27-2024 Telephone encounter Jose De Jesus Harrington MD Work Phone: [facility] [place] Comment on above: Patient Update Start: 07-13-2024 Telephone encounter Jose De Jesus de la rosa MD Work Phone: [facility] [place] Comment on above: Patient Question Start: 07-01-2024 End: 07-01-[address] 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: nursing home current us e of 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 (Primary Dx); History of pulmonary embolus (PE) Start: 04-29-2024 End: 04-29-[address] 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); Type 2 diabetes mellitus with stage 3a chronic kidney disease, without long-term current use of insulin ([facility]); Hypercalcemia; Vitamin D deficiency; Acquired hypothyroidism; Encounter for therapeutic drug monitoring Start: 04-02-2024 Refill Jose De Jesus jeffrey MD Work Phone: [facility] [place] Comment on above: Refill Request Start: 04-01-2024 End: 04-01-[address] 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 Work Phone: [facility] Comment on above: nursing home current us e of 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 (Primary Dx); History of pulmonary embolus (PE) Start: 02-23-2024 Refill Jose De Jesus jeffrey MD Work Phone: [facility] Comment on above: Refill Request Orders Start: 02-06-2024 End: 02-06-[address] [facility] Work Phone: [facility] Comment on above: nursing home current us e of 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 (Primary Dx); History of pulmonary embolus (PE) Start: 01-08-2024 End: 01-08-[address] 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 Jose De Jesus Harrington Work Phone: [facility] Work Phone: Start: 11-27-2023 End: 11-27-[address] 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); History of pulmonary embolus (PE) Start: 10-30-2023 Telephone encounter Jose De Jesus de la rosa MD Work Phone: [facility] [place] Comment on above: Requesting LUZ MARIA notes Start: 10-17-2023 End: 10-17-2023 Office outpatient visit 25 minutes Jose De Jesus Harrington MD Work Phone: [facility] [place] Comment on above: Type 2 diabetes colleen itus with stage 3a chronic kidney disease, without long-term current use of insulin (HCC) (Primary Dx); Hordeolum externum of left upper eyelid; Vitamin D deficiency; Acquired hypothyroidism; Alternating constipation and diarrhea; Hypercalcemia; Essential hypertension; Hypomagnesemia; Contusion of right hip, sequela Start: 10-14-2023 End: 10-14-2023 Anticoagulant drug monitoring [facility] 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 Jose De Jesus Harrington Work Phone: [facility] Work Phone: Start: 10-09-2023 End: 10-09-[address] Jose De Jesus Harrington Work Phone: [facility] Work Phone: Start: 10-06-2023 Non-patient / Non-visit Dr. Nayana Harrington Work Phone: [facility] Work Phone: Start: 10-04-2023 Non-patient / Non-visit Dr. Nayana Harrington Work Phone: [facility] Work Phone: Start: 10-02-2023 Non-patient / Non-visit Dr. Nayana Harrington Work Phone: [facility] Work Phone: Start: 10-01-2023 Non-patient / Non-visit Dr. Nayana Harrington Work Phone: [facility] Work Phone: Start: 09-30-2023 Non-patient / Non-visit Dr. Nayana Harrington Work Phone: [facility] Work Phone: Start: 09-29-2023 Non-patient / Non-visit Dr. Nayana Harrington Work Phone: [facility] Work Phone: Start: 09-26-2023 End: 10-09-2023 Evaluation and management of inpatient Dr. Jose De Jesus Harrington Work Phone: [facility] Work Phone: Start: 09-26-2023 Non-patient / Non-visit Dr. Nayana Harrington Work Phone: [facility] Work Phone: Start: 09-25-2023 Non-patient / Non-visit Dr. Nayana Harrington Work Phone: [facility] Work Phone: Start: 09-25-2023 End: 09-26-2023 Evaluation and management of inpatient Dr. Jose De Jesus Harrington Work Phone: [facility] Work Phone: Start: 09-25-[address] Jose De Jesus Harrington Work Phone: [facility] Work Phone: Start: 09-19-2023 End: 09-19-2023 ambulatory [facility] [place] Work Phone: [facility] Start: 09-19-2023 End: 09-19-2023 Anticoagulant drug monitoring [facility] Work Phone: [facility] [place] Comment on above: nursing home current us e of 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 (Primary Dx); History of pulmonary embolus (PE) Start: 09-15-2023 End: 09-15-2023 Patient encounter procedure Britney Fang PA-C Work Phone: General Surgery Comment on above: Bowel habit changes (Primary Dx); Diarrhea, unspecified type; History of colon polyps; On continuous oral anticoagulation; Abnormal weight loss Start: 09-02-2023 ambulatory Olimpia Rizo PRN.CNP Work Phone: [facility] [place] Comment on above: Results Start: 09-02-2023 E-mail encounter fro m caregiver Olimpia Gomez APRN.CNP Work Phone: [facility] Start: 09-01-2023 End: 09-01-2023 Patient encounter procedure Olimpia Gomez APRN.CNP Work Phone: [facility] [place] Comment on above: Bowel habit changes (Primary Dx); Diarrhea, unspecified type; History of colon polyps; Hypomagnesemia; Acquired hypothyroidism; Vitamin D deficiency; Type 2 diabetes mellitus with stage 3a chronic kidney disease, without long-term current use of insulin (HCC); Encounter for therapeutic drug monitoring Start: 08-22-2023 End: 08-22-[address] 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 Jose De Jesus Harrington Work Phone: [facility] Work Phone: Start: 07-17-2023 End: 07-17-[address] 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 Work Phone: [facility] [place] Comment on above: nursing home current us e of 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 (Primary Dx); History of pulmonary embolus (PE) Start: 05-29-2023 End: 05-29-[address] 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: nursing home current us e of 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; History of pulmonary embolus (PE) Start: 03-14-2023 End: 03-14-[address] 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; History of pulmonary embolus (PE) Start: 03-13-2023 End: 03-13-2023 Office outpatient visit 25 minutes Herbert Jay APRN.GARDENING SUPERVISOR Work Phone: [facility] [place] Comment on above: Laceration of right thumb without foreign body without damage to nail, subsequent encounter (Primary Dx); Open fracture of base of distal phalanx of right thumb; Contusion of left knee, subsequent encounter; Abrasion, left knee, subsequent encounter; Muscle spasm; Back strain, subsequent encounter Start: 03-08-2023 ambulatory Aaliyah JORGENSEN SE AUDIO VISUAL DIRECTOR Comment on above: Symptoms Start: 03-08-2023 Telephone encounter Jose De Jesus de la rosa MD Work Phone: [facility] [place] Comment on above: Back Pain Start: 03-08-2023 End: 03-08-2023 Emergency department patient visit [facility] Start: 03-05-2023 End: 03-05-2023 Emergency department patient visit [facility] Start: 02-24-2023 End: 02-24-2023 Office outpatient visit 15 minutes Herbert Jay APRN.GARDENING SUPERVISOR Work Phone: [facility] [place] Comment on above: Sinobronchitis (Prim alex Dx); Chronic anticoagulation Start: 02-24-2023 End: 02-24-[address] 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 Work Phone: [facility] Comment on above: nursing home current us e of 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; History of pulmonary embolus (PE) Start: 10-31-2022 End: 10-31-[address] [facility] Work Phone: [facility] Comment on above: nursing home current us e of 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; History of pulmonary embolus (PE) Start: 10-21-2022 End: 10-21-2022 ambulatory [facility] Work Phone: Start: 10-21-2022 End: 10-21-2022 Patient encounter procedure [facility] Start: 09-26-2022 Telephone encounter Jose De Jesus de la rosa MD Work Phone: [facility] Comment on above: Orders (protime) Start: 09-26-2022 End: 09-26-[address] 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 Work Phone: [facility] Comment on above: nursing home current us e of 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; History of pulmonary embolus (PE) Start: 08-14-2022 Telephone encounter Jose De Jesus de la rosa MD Work Phone: [facility] [place] Comment on above: Anticoagulation Start: 08-13-2022 End: 08-13-[address] Jose De Jesus Harrington Work Phone: [facility] Work Phone: Start: 08-13-2022 End: 08-13-[address] Jose De Jesus Harrington Work Phone: [facility], Specimen Start: 08-10-2022 Orders Only Jose De Jesus jeffrey MD Work Phone: [facility] [place] Comment on above: Other microscopic he maturia (Primary Dx); UTI symptoms Start: 08-06-2022 Refill Jose De Jesus jeffrey MD Work Phone: [facility] [place] Comment on above: Refill Request Start: 08-02-2022 Telephone encounter Jose De Jesus de la rosa MD Work Phone: [facility] [place] Comment on above: Patient Update; Elizabeth ent Question Start: 07-31-2022 End: 07-31-2022 Office outpatient visit 25 minutes Jose De Jesus Harrington MD Work Phone: [facility] [place] Comment on above: UTI symptoms (Primar y Dx); Urgency incontinence Start: 07-30-2022 End: 07-30-[address] [facility] Work Phone: [facility] [place] Comment on above: nursing home current us e of 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; History of pulmonary embolus (PE) Start: 07-26-2022 End: 07-26-[address] 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 Jose De Jesus Harrington Work Phone: [facility] Start: 04-24-[address] Lorie Harrington Work Phone: [facility] Comment on above: Bladder procedure wi th Dr. Peters Start: 04-24-2022 End: 04-24-2022 Admission to same day surgery center Dr. Jose De Jesus Harrington Work Phone: [facility] Start: 04-24-2022 End: 04-24-[address] 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; History of pulmonary embolus (PE) Start: 12-18-2021 End: 12-18-2021 Patient encounter procedure Jose De Jesus Harrington MD Work Phone: [facility] [place] Comment on above: Controlled type 2 di abetes mellitus with stage 3 chronic kidney disease, without long-term current use of insulin (HCC) (Primary Dx); Essential hypertension; Acquired hypothyroidism; Mixed hyperlipidemia; Hypomagnesemia; Vitamin D deficiency; 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) Start: 07-08-2018 [facility] Start: 03-25-2018 End: 03-25-2018 [facility] Start: 11-07-2017 End: 11-07-2017 [facility] Procedures Date Procedure Procedure Detail Performing Clinician Start: 04-19-2025 Adult depression scr eening assessment Olimpia Gomez DIRECT SUPPORT STAFF.COMPENSATION DIRECTOR Work Phone: Start: 11-18-2024 Prothrombin time [facility] Pr ovider Start: 10-20-2024 Hemoglobin A1c/Hemoglobin.total in Blood Jose De Jesus Harrington MD Work Phone: Start: 08-05-2024 Prothrombin time [facility] Pr ovider Start: 04-19-2024 Adult depression scr eening assessment [facility]tico[facility] Work Phone: Start: 10-03-2023 Measurement of occul t blood in stool specimen using immunoassay Dr. Jose De Jesus Harrington Work Phone: Start: 09-25-2023 Pelvis X-ray Dr. Jose De Jesus ponce Work Phone: Start: 09-25-2023 Plain X-ray of femur Dr Chato Harrington Work Phone: Start: 09-19-2023 [employer] COVI D-19 VACCINE (2022- SEASON) AGE 12+ YR Olimpia Gomez DIRECT SUPPORT STAFF.COMPENSATION DIRECTOR Work Phone: Start: 09-19-2023 INFLUENZA VACCINE, P RSV FREE, AGE 65+ YR, HIGH DOSE, QUADRIVALENT (FLUZONE HIGH-DOSE) Olimpia Gomez DIRECT SUPPORT STAFF.COMPENSATION DIRECTOR Work Phone: Start: 09-19-2023 End: 09-19-2023 Iaad ia giardia Britneydenver Fang PA-C Work Phone: Start: 09-19-2023 Inf agent det nuclei c acid clostridium amp probe Britney Fang PA-C Work Phone: Start: 09-19-2023 Lactoferrin fecal qualitative Britney Fang PA-C Work Phone: Start: 03-05-2023 Diagnostic radiograp hy of finger Start: 03-05-2023 Radiologic examinati on of knee Start: 02-24-2023 Prothrombin time [facility] Start: 08-13-2022 PROTHROMBIN TIME/PT [facility] Provider Start: 07-31-2022 Urnls dip stick/tabl et rgnt auto w/o microscopy Jose De Jesus Harrington MD Work Phone: Start: 06-12-2022 Adult depression scr eening assessment Herbert Jay DIRECT SUPPORT STAFF.GARDENING SUPERVISOR Work Phone: Start: 04-11-2021 Adult depression scr eening assessment Antico[facility] Work Phone: Start: 07-27-2019 Colonoscopy Antico[facility] Work Phone: Plan of Treatment Date Care Activity Detail Author Start: 03-05-2033 Urine microalbumin profile [facility] Start: 07-15-2027 Urine microalbumin profile DTAP,TDAP,TD (2 - Td or Tdap) [facility] Start: 05-20-2026 Glaucoma screening Dilated Retinal E xam [facility] Start: 04-19-2026 Annual PCP Team Chemistry Tutor sharon Disease Visit Annual PCP Team Chronic Disease Visit [facility] Start: 04-19-2026 Anxiety Screening Anxiety Screening [facility] Start: 04-19-2026 BP Controlled (<130/80) BP Controlle d (<130/80) [facility] Start: 04-19-2026 Complete blood count Hemoglobin/Mario Alberto tocrit [facility] Start: 04-19-2026 Creatinine measurement Serum Creatin ine [facility] Start: 04-19-2026 Depression Screening Depression Scre ening [facility] Start: 04-19-2026 Hepatitis B screening Urine Al bumin:Creatinine Ratio [facility] Start: 04-19-2026 Hepatitis B surface antibody level LDL Cholesterol [facility] Start: 11-04-2025 End: 11-04-2025 Patient encounter procedure 11/04/2025 1:40 PM EST Office Visit [facility] [place] [address] [place], [place] [id number] Jose De Jesus Harrington MD [address] [place], [place] [address] 6 mo follow up [facility] [place] Comment on above: 6 mo follow up Start: 10-20-2025 Annual PCP Team Chemistry Tutor sharon Disease Visit Annual PCP Team Chronic Disease Visit [facility] Start: 10-20-2025 BP Controlled (<130/80) BP Controlle d (<130/80) [facility] Start: 10-20-2025 Covid-19 Vaccine () Covid-19 Vaccine () [facility] Comment on above: Postponed from 08/01 (Declined at this time) Start: 10-20-2025 Diabetic foot examination Diabetic F oot Exam [facility] Start: 10-20-2025 Hemoglobin A1c measurement HbA1C [facility] Start: 10-08-2025 BP Controlled (<130/80) BP Controlle d (<130/80) [facility] Start: 10-04-2025 BP Controlled (<130/80) BP Controlle d (<130/80) [facility] Start: 10-04-2025 Complete blood count Hemoglobin/Mario Alberto tocrit [facility] Start: 10-04-2025 Creatinine measurement Serum Creatin ine [facility] Start: 09-22-2025 End: 09-22-2025 Anticoagulant drug monitoring 09/22/2025 9:30 AM EDT Antico[facility] Visit [facility] [place] [address] [place] [address] Wstr, Anticoag [facility] [place] [address] [place] [address] inr [facility] Comment on above: inr Start: 08-01-2025 Influenza vaccination Influenza Vacc ine (#1) [facility] Start: 07-28-2025 Glaucoma screening Dilated Retinal E xam [facility] Start: 07-28-2025 End: 07-28-2025 Anticoagulant drug monitoring 07/28/2025 11:15 AM EDT Anticoagulation Visit Cou[facility] [place] [address] [place] [address] Wstr, Anticoag [facility] [place] [address] [place] [address] [facility]r [facility] Comment on above: inr Start: 07-27-2025 Annual PCP Team Chemistry Tutor sharon Disease Visit Annual PCP Team Chronic Disease Visit [facility] Start: 06-30-2025 End: 06-30-2025 Anticoagulant drug monitoring 06/30/2025 11:15 AM EDT Anticoagulation Visit [facility] [place] [address] [place] [address] Wstr, Anticoag [facility] [place] [address] [place] [address] inr [facility] Comment on above: inr Start: 06-01-2025 Covid-19 Vaccine () Covid-19 Vaccine () [facility] Start: 05-26-2025 End: 05-26-2025 Anticoagulant drug monitoring 05/26/2025 11:15 AM EDT Anticoagulation Visit [facility] [place] [address] [facility] [place] [address] Wstr, Anticoag [facility] [place] [address] [facility] [place] [address] inr [facility] [place] Comment on above: inr Start: 04-28-2025 End: 04-28-2025 Anticoagulant drug monitoring 04/28/2025 11:00 AM EDT Anticoagulation Visit [facility] [place] [address] [facility] [place] [address] [facility] [address] [facility] [place] [address] inr [facility] [place] Comment on above: inr Start: 04-19-2025 Annual PCP Team Chemistry Tutor sharon Disease Visit Annual PCP Team Chronic Disease Visit [facility] Start: 04-19-2025 Anxiety Screening Anxiety Screening [facility] Start: 04-19-2025 Depression Screening Depression Scre ening [facility] Start: 04-19-2025 Hemoglobin A1c measurement HbA1C [facility] Start: 04-19-2025 End: 07-19-2025 LIPID PANEL, NONFASTING [facility] Work Phone: Comment on above: Expected: 04/19/2025 , Expires: 07/19/2025 Start: 04-19-2025 End: 04-19-2025 Patient encounter procedure [facility] [place] Comment on above: 6 mo follow up Start: 04-01-2025 End: 04-01-2025 Anticoagulant drug monitoring 04/01/2025 10:30 AM EDT Antico[facility] [place] [address] [facility] [place] [address] [facility] [place] [address] [facility] [place] [address] inr [facility] [place] Comment on above: inr Start: 03-20-2025 End: 05-03-2025 25-hydroxyvitamin D3 [Mass/volume] in Serum or Plasma VITAMIN D 25 HYDROXY Lab Routine Vitamin D deficiency Expected: 03/20/2025 (Approximate), Expires: 05/03/2025 [facility] Work Phone: Comment on above: Expected: 03/20/2025 (Approximate), Expires: 05/03/2025 Start: 03-20-2025 End: 05-03-2025 CBC W Auto Differential panel - Blood COMPLETE BLOOD COUNT AND DIFFERENTIAL Lab Routine Encounter for therapeutic drug monitoring Expected: 03/20/2025 (Approximate), Expires: 05/03/2025 [facility] Comment on above: Expected: 03/20/2025 (Approximate), Expires: 05/03/2025 Start: 03-20-2025 End: 05-03-2025 Comprehensive metabolic 2000 panel - Serum or Plasma COMPREHENSIVE METABOLIC PANEL Lab Routine Encounter for therapeutic drug monitoring Expected: 03/20/2025 (Approximate), Expires: 05/03/2025 [facility] Comment on above: Expected: 03/20/2025 (Approximate), Expires: 05/03/2025 Start: 03-20-2025 End: 05-03-2025 Hemoglobin A1c in Blood HEMOGLOBIN A1C Lab Routine Type 2 diabetes mellitus with stage 3a chronic kidney disease, without long-term current use of insulin (HCC) Expected: 03/20/2025 (Approximate), Expires: 05/03/2025 [facility] Comment on above: Expected: 03/20/2025 (Approximate), Expires: 05/03/2025 Start: 03-20-2025 End: 05-03-2025 Lipid 1996 panel - Serum or Plasma LIPID PANEL BASIC Lab Routine Mixed hyperlipidemia Expected: 03/20/2025 (Approximate), Expires: 05/03/2025 [facility] Comment on above: Expected: 03/20/2025 (Approximate), Expires: 05/03/2025 Start: 03-20-2025 End: 05-03-2025 Magnesium [Mass/volume] in Serum or Plasma MAGNESIUM Lab Routine Encounter for therapeutic drug monitoring Expected: 03/20/2025 (Approximate), Expires: 05/03/2025 [facility] Comment on above: Expected: 03/20/2025 (Approximate), Expires: 05/03/2025 Start: 03-20-2025 End: 06-19-2025 Microalbumin/Creatinine [Mass Ratio] in Urine ALBUMIN/CREATININE RATIO, URINE Lab Routine Type 2 diabetes mellitus with stage 3a chronic kidney disease, without long-term current use of insulin (HCC) Expected: 03/20/2025 (Approximate), Expires: 06/19/2025 [facility] Comment on above: Expected: 03/20/2025 (Approximate), Expires: 06/19/2025 Start: 03-20-2025 End: 05-03-2025 Parathyrin.intact [Mass/volume] in Serum or Plasma PTH INTACT Lab Routine Hypercalcemia Expected: 03/20/2025 (Approximate), Expires: 05/03/2025 [facility] Comment on above: Expected: 03/20/2025 (Approximate), Expires: 05/03/2025 Start: 03-20-2025 End: 05-03-2025 Thyrotropin [Units/volume] in Serum or Plasma THYROID STIMULATING HORMONE Lab Routine Acquired hypothyroidism Expected: 03/20/2025 (Approximate), Expires: 05/03/2025 [facility] Comment on above: Expected: 03/20/2025 (Approximate), Expires: 05/03/2025 Start: 03-19-2025 Complete blood count Hemoglobin/Mario Alberto tocrit [facility] Start: 03-19-2025 Creatinine measurement Serum Creatin ine [facility] Start: 03-19-2025 Hepatitis B screening Urine Al bumin:Creatinine Ratio [facility] Start: 03-19-2025 Hepatitis B surface antibody level LDL Cholesterol [facility] Start: 03-03-2025 End: 03-03-2025 Anticoagulant drug monitoring 03/03/2025 10:30 AM EDT [facility] [place] [address] [place], [place] [id number] Wstr, Anticoag [facility] [place] [address] [place] [address] inr [facility] [place] Comment on above: inr Start: 02-10-2025 End: 02-10-2025 Anticoagulant drug monitoring 02/10/2025 10:00 AM EDT Antico[facility] Visit [facility] [place] [address] [facility] [place] [address] Wstr, Anticoag [facility] [place] [address] [place] [address] inr [facility] [place] Comment on above: inr Start: 01-27-2025 End: 01-27-2025 Anticoagulant drug monitoring 01/27/2025 10:15 AM EST Anticoagulation Visit [facility] [place] [address] [place] [address] Wstr, Anticoag [facility] [place] [address] [place] [address] inr [facility] [place] Comment on above: inr Start: 01-13-2025 End: 01-13-2025 Anticoagulant drug monitoring 01/13/2025 10:15 AM EST [facility]ticoagulation Visit [facility] [place] [address] [place] [address] Wstr, Anticoag [facility] [place] [address] [place] [address] inr [facility] [place] Comment on above: inr Start: 12-16-2024 End: 12-16-2024 Anticoagulant drug monitoring 12/16/2024 10:15 AM EST [facility]ticoagulation [facility] [place] [address] [place] [address] Wstr, Anticoag [facility] [place] [address] [place] [address] inr [facility] [place] Comment on above: inr Start: 12-01-2024 Advance Directive Discussion Advance Directive Discussion [facility] Start: 11-18-2024 End: 11-18-2024 Anticoagulant drug monitoring 11/18/2024 10:00 AM EST [facility]tico[facility] [place] [address] [place] [address] Wstr, Anticoag [facility] [place] [address] [place] [address] inr [facility] [place] Comment on above: inr Start: 11-03-2024 End: 11-03-2024 Patient encounter procedure 11/03/2024 9:00 AM EST Office Visit Neurology [address] [place] [address] Roseann [place] APRN.COMPENSATION DIRECTOR [address] [place] [address] PATRICIA (obstructive sleep apnea) [G47.33] Neurology Comment on above: PATRICIA (obstructive sle ep apnea) [G47.33] Start: 10-20-2024 End: 10-20-2024 Anticoagulant drug monitoring 10/20/2024 9:15 AM EST Anticoagulation Visit [facility] [address] [place] [address] Wstr, Anticoag [facility] [place] [address] [place] [address] inr - coming from appt with pcp- mrg [facility] Comment on above: inr - coming from ap pt with pcp- mrg Start: 10-20-2024 End: 10-20-2024 Patient encounter procedure 10/20/2024 8:40 AM EST Office [facility] [address] [place], [place] [id number] Jose De Jesus Harrington MD [address] [place], [place] [id number] 6 Month follow up [facility] Comment on above: 6 Month follow up Start: 10-17-2024 Annual PCP Team Chemistry Tutor sharon Disease Visit Annual PCP Team Chronic Disease Visit [facility] Start: 10-17-2024 BP Controlled (<130/80) BP Controlle d (<130/80) [facility] Start: 10-13-2024 BP Controlled (<130/80) BP Controlle d (<130/80) [facility] Start: 10-11-2024 End: 01-10-2025 25-hydroxyvitamin D3 [Mass/volume] in Serum or Plasma VITAMIN D 25 HYDROXY Lab Routine Vitamin D deficiency Expected: 10/11/2024, Expires: 01/10/2025 [facility] Comment on above: Expected: 10/11/2024 , Expires: 01/10/2025 Start: 10-11-2024 End: 01-10-2025 CBC W Auto Differential panel - Blood COMPLETE BLOOD COUNT AND DIFFERENTIAL Lab Routine Encounter for therapeutic drug monitoring Expected: 10/11/2024, Expires: 01/10/2025 [facility] Work Phone: Comment on above: Expected: 10/11/2024 , Expires: 01/10/2025 Start: 10-11-2024 End: 01-10-2025 Comprehensive metabolic 2000 panel - Serum or Plasma COMPREHENSIVE METABOLIC PANEL Lab Routine Encounter for therapeutic drug monitoring Expected: 10/11/2024, Expires: 01/10/2025 [facility] Comment on above: Expected: 10/11/2024 , Expires: 01/10/2025 Start: 10-11-2024 End: 01-10-2025 Hemoglobin A1c in Blood HEMOGLOBIN A1C Lab Routine Type 2 diabetes mellitus with stage 3a chronic kidney disease, without long-term current use of insulin (HCC) Expected: 10/11/2024, Expires: 01/10/2025 [facility] Comment on above: Expected: 10/11/2024 , Expires: 01/10/2025 Start: 10-11-2024 End: 01-10-2025 Lipid 1996 panel - Serum or Plasma LIPID PANEL BASIC Lab Routine Mixed hyperlipidemia Expected: 10/11/2024, Expires: 01/10/2025 [facility] Comment on above: Expected: 10/11/2024 , Expires: 01/10/2025 Start: 10-11-2024 End: 01-10-2025 Magnesium [Mass/volume] in Serum or Plasma MAGNESIUM Lab Routine Encounter for therapeutic drug monitoring Expected: 10/11/2024, Expires: 01/10/2025 [facility] Comment on above: Expected: 10/11/2024 , Expires: 01/10/2025 Start: 10-11-2024 End: 01-10-2025 Parathyrin.intact [Mass/volume] in Serum or Plasma PTH INTACT Lab Routine Hypercalcemia Expected: 10/11/2024, Expires: 01/10/2025 [facility] Comment on above: Expected: 10/11/2024 , Expires: 01/10/2025 Start: 10-11-2024 End: 01-10-2025 Thyrotropin [Units/volume] in Serum or Plasma THYROID STIMULATING HORMONE Lab Routine Acquired hypothyroidism Expected: 10/11/2024, Expires: 01/10/2025 [facility] Comment on above: Expected: 10/11/2024 , Expires: 01/10/2025 Start: 10-08-2024 End: 01-07-2025 Hemoglobin A1c in Blood HEMOGLOBIN A1C Lab Routine Type 2 diabetes mellitus with stage 3a chronic kidney disease, without long-term current use of insulin (HCC) Expected: 10/08/2024, Expires: 01/07/2025 [facility] Work Phone: Comment on above: Expected: 10/08/2024 , Expires: 01/07/2025 Start: 10-08-2024 End: 10-08-2024 Patient encounter procedure 10/08/2024 10:20 AM EST Office [facility] [address] [place] [address] Herbert Jay APRN.GARDENING SUPERVISOR [address] [place] [address] follow up [facility] Comment on above: follow up Start: 10-04-2024 End: 01-03-2025 Comprehensive metabolic 2000 panel - Serum or Plasma [facility] Comment on above: Expected: 10/04/2024 , Expires: 01/03/2025 Start: 10-04-2024 End: 01-03-2025 Thyrotropin [Units/volume] in Serum or Plasma [facility] Comment on above: Expected: 10/04/2024 , Expires: 01/03/2025 Start: 09-18-2024 Hemoglobin A1c measurement HbA1C [facility] Start: 09-16-2024 End: 09-16-2024 Anticoagulant drug monitoring 09/16/2024 9:45 AM EDT Anticoagulation [facility] [address] [place] [address] [facility]str[facility] [address] [place] [address] inr [facility] Comment on above: inr Start: 09-02-2024 End: 09-02-2024 Anticoagulant drug monitoring 09/02/2024 10:15 AM EDT Anticoagulation [facility] [address] [place] [address] Wstr[facility] [address] [place] [address] inr [facility] Comment on above: inr Start: 09-01-2024 Annual PCP Team Chemistry Tutor sharon Disease Visit Annual PCP Team Chronic Disease Visit [facility] Start: 09-01-2024 BP Controlled (<130/80) BP Controlle d (<130/80) [facility] Start: 09-01-2024 Complete blood count Hemoglobin/Mario Alberto tocrit [facility] Start: 09-01-2024 Creatinine measurement Serum Creatin ine [facility] Start: 09-01-2024 Hemoglobin/Hematocrit Hemoglobin/Hem atocrit [facility] Start: 09-01-2024 Hepatitis B surface antibody level LDL Cholesterol [facility] Start: 09-01-2024 Serum Creatinine Serum Creatinine [facility] Start: 08-18-2024 End: 08-18-2024 Anticoagulant drug monitoring 08/18/2024 9:00 AM EDT Anticoagulation [facility] [address] [place] [address] Wstr, [facility] [address] [place] [address] inr [facility] Comment on above: inr Start: 08-05-2024 End: 08-05-2024 Anticoagulant drug monitoring 08/05/2024 10:00 AM EDT Anticoagulation [facility] [address] [place] [address] Wstr[facility] [address] [place] [address] inr [facility]mad[facility] Comment on above: inr Start: 08-01-2024 Covid-19 Vaccine ( season) Covid-19 Vaccine ( season) [facility] Start: 08-01-2024 Covid-19 Vaccine () Covid-19 Vaccine () [facility] Start: 08-01-2024 Influenza vaccination Influenza Vacc ine (#1) [facility] Start: 07-29-2024 End: 07-29-2024 Anticoagulant drug monitoring 07/29/2024 10:15 AM EDT Anticoagulation Visit [facility] [address] [place] [address] Wstr, [facility] [address] [place] [address] inr [facility] Comment on above: inr Start: 07-27-2024 Colonoscopy COLONOSCOPY [facility] Start: 07-27-2024 COLORECTAL CANCER SCREENING COLORECTAL CANCER SCREENING [facility] Start: 07-01-2024 End: 07-01-2024 Anticoagulant drug monitoring 07/01/2024 10:15 AM EDT [facility] [address] [place] [address] Wstr, Anticoag [facility] [address] [place] [address] inr [facility] Comment on above: inr Start: 06-19-2024 Glaucoma screening Dilated Retinal E xam [facility] Start: 06-19-2024 Hepatitis C antibody , confirmatory test DILATED RETINAL EXAM [facility] Start: 06-17-2024 ANNUAL PCP TEAM VICTORIAN LITERATURE PROFESSOR SHARON DISEASE VISIT ANNUAL PCP TEAM CHRONIC DISEASE VISIT [facility] Start: 06-17-2024 BP CONTROLLED (<130/80) BP CONTROLLE D (<130/80) [facility] Start: 06-04-2024 HEMOGLOBIN/HEMATOCRIT HEMOGLOBIN/HEM ATOCRIT [facility] Start: 06-04-2024 SERUM CREATININE SERUM CREATININE Cl [facility] Start: 05-27-2024 End: 05-27-2024 Anticoagulant drug monitoring 05/27/2024 10:15 AM EDT Anticoagulation Visit [facility] [address] [place] [address] [facility] [address] [place] [address] inr [facility] Comment on above: inr Start: 04-29-2024 End: 04-29-2024 Anticoagulant drug monitoring 04/29/2024 10:00 AM EDT Anticoagulation Visit [facility] [address] [place] [address] Wstr, [facility] [address] [place] [address] inr [facility] Comment on above: inr Start: 04-22-2024 SERUM CREATININE SERUM CREATININE Cl [facility] Start: 04-19-2024 End: 04-19-2024 Patient encounter procedure 04/19/2024 2:00 PM EDT Office [facility] [address] [place] [address] Olimpia Gomez APRN.COMPENSATION DIRECTOR [address] [place] [address] 6 Month follow up [facility] Comment on above: 6 Month follow up Start: 04-16-2024 End: 07-16-2024 25-hydroxyvitamin D3 [Mass/volume] in Serum or Plasma VITAMIN D 25 HYDROXY Lab Routine Vitamin D deficiency Hypercalcemia Expected: 04/16/2024 (Approximate), Expires: 07/16/2024 [facility] Work Phone: Comment on above: Expected: 04/16/2024 (Approximate), Expires: 07/16/2024 Start: 04-16-2024 End: 07-16-2024 ALBUMIN/CREAT RATIO RND UR ALBUMIN/CREAT RATIO RND UR Lab Routine Type 2 diabetes mellitus with stage 3a chronic kidney disease, without long-term current use of insulin (HCC) Expected: 04/16/2024 (Approximate), Expires: 07/16/2024 [facility] Work Phone: Comment on above: Expected: 04/16/2024 (Approximate), Expires: 07/16/2024 Start: 04-16-2024 End: 07-16-2024 CBC panel - Blood by Automated count CBC Lab Routine Type 2 diabetes mellitus with stage 3a chronic kidney disease, without long-term current use of insulin (HCC) Hypercalcemia Essential hypertension Expected: 04/16/2024 (Approximate), Expires: 07/16/2024 [facility] Work Phone: Comment on above: Expected: 04/16/2024 (Approximate), Expires: 07/16/2024 Start: 04-16-2024 End: 07-16-2024 Comprehensive metabolic 2000 panel - Serum or Plasma COMP METABOLIC PANEL Lab Routine Type 2 diabetes mellitus with stage 3a chronic kidney disease, without long-term current use of insulin (HCC) Essential hypertension Expected: 04/16/2024 (Approximate), Expires: 07/16/2024 [facility] Work Phone: Comment on above: Expected: 04/16/2024 (Approximate), Expires: 07/16/2024 Start: 04-16-2024 End: 07-16-2024 Hemoglobin A1c in Blood HGB A1C Lab Routine Type 2 diabetes mellitus with stage 3a chronic kidney disease, without long-term current use of insulin (HCC) Expected: 04/16/2024 (Approximate), Expires: 07/16/2024 [facility] Work Phone: Comment on above: Expected: 04/16/2024 (Approximate), Expires: 07/16/2024 Start: 04-16-2024 End: 07-16-2024 Lipid 1996 panel - Serum or Plasma LIPID PANEL BASIC Lab Routine Type 2 diabetes mellitus with stage 3a chronic kidney disease, without long-term current use of insulin (HCC) Expected: 04/16/2024 (Approximate), Expires: 07/16/2024 [facility] Work Phone: Comment on above: Expected: 04/16/2024 (Approximate), Expires: 07/16/2024 Start: 04-16-2024 End: 07-16-2024 Magnesium [Mass/volume] in Serum or Plasma MAGNESIUM BLD Lab Routine Hypomagnesemia Expected: 04/16/2024 (Approximate), Expires: 07/16/2024 [facility] Work Phone: Comment on above: Expected: 04/16/2024 (Approximate), Expires: 07/16/2024 Start: 04-16-2024 End: 07-16-2024 Thyrotropin [Units/volume] in Serum or Plasma TSH BLD Lab Routine Acquired hypothyroidism Expected: 04/16/2024 (Approximate), Expires: 07/16/2024 [facility] Work Phone: Comment on above: Expected: 04/16/2024 (Approximate), Expires: 07/16/2024 Start: 04-16-2024 End: 04-16-2024 ambulatory 04/16/2024 9:30 AM EDT Results Only [facility] [address] [place] [address] [facility] Start: 03-24-2024 HEMOGLOBIN/HEMATOCRIT HEMOGLOBIN/HEM ATOCRIT [facility] Start: 03-24-2024 Hepatitis B surface antibody level LDL CHOLESTEROL [facility] Start: 03-24-2024 SERUM CREATININE SERUM CREATININE [facility] Start: 03-20-2024 3 comp foot exam completed DIABETIC FOOT EXAM [facility] Start: 03-20-2024 BP CONTROLLED (<130/80) BP CONTROLLE D (<130/80) [facility] Start: 03-20-2024 Diabetic foot examination Diabetic F oot Exam [facility] Start: 03-05-2024 End: 03-05-2024 Anticoagulant drug monitoring 03/05/2024 10:15 AM EDT Anticoagulation Visit [facility] [address] [place] [address] Wstr, Anticoag [facility] [address] [facility] [place] [address] inr [facility]mad[facility] Comment on above: inr Start: 03-02-2024 Hemoglobin A1c measurement HbA1C [facility] Start: 03-02-2024 Hemoglobin A1c/Hemoglobin.total in Blood HbA1C [facility] Start: 01-20-2024 Covid-19 Vaccine () Covid-19 Vaccine () [facility] Start: 12-18-2023 ANNUAL PCP TEAM VICTORIAN LITERATURE PROFESSOR SHARON DISEASE VISIT ANNUAL PCP TEAM CHRONIC DISEASE VISIT [facility] Start: 12-18-2023 BP CONTROLLED (<130/80) BP CONTROLLE D (<130/80) [facility] Start: 12-18-2023 SHINGRIX VACCINE (2 of 3) AMEZQUITA GRIX VACCINE (2 of 3) [facility] Comment on above: Postponed from 04/09 (Declined at this time) Start: 12-17-2023 HEMOGLOBIN/HEMATOCRIT HEMOGLOBIN/HEM ATOCRIT [facility] Start: 12-17-2023 Hepatitis B screening URINE AL BUMIN:CREATININE RATIO [facility] Start: 12-17-2023 SERUM CREATININE SERUM CREATININE Cl [facility] Start: 12-01-2023 Advance Directive Discussion Advance Directive Discussion [facility] Start: 12-01-2023 Behavioral Health Screening Behavioral Health Screening [facility] Start: 12-01-2023 Depression Assessment Depression Ass essment [facility] Start: 10-21-2023 Hepatitis B surface antibody level LDL CHOLESTEROL [facility] Start: 10-09-2023 Polysomnography [facility] Start: 10-09-[address] [facility] Start: 10-06-2023 [facility] Start: 10-04-2023 Measuring intake and output [facility] Start: 09-26-2023 Application of ice collar, cap or bag [facility] Start: 09-26-2023 Wound care [facility] Start: 09-26-2023 Referral to service [facility] Start: 09-26-2023 Admission procedure [facility] Start: 09-26-2023 Patient referral to dietitian [facility] Start: 09-26-2023 Vital signs measurements [facility] Start: 09-26-2023 End: 09-26-2023 [facility] Start: 09-26-2023 Referral to occupati onal therapist [facility] Start: 09-26-[address] [facility] Start: 09-25-2023 End: 09-26-2023 [facility] Start: 09-25-2023 Assessment of risk o f venous thromboembolism [facility] Start: 09-25-2023 Insertion of cathete r into peripheral vein [facility] Start: 09-25-2023 Oxygen therapy [facility] Start: 09-25-2023 Providing care accor ding to standard [facility] Start: 09-25-2023 Provision of activit y privileges [facility] Start: 09-25-2023 Referral to occupati onal therapist [facility] Start: 09-25-2023 Referral to service [facility] Start: 09-25-2023 Following clinical pathway protocol [facility] Start: 09-25-2023 Verification routine [facility] Start: 09-25-2023 Prothrombin time [facility] Start: 09-25-2023 Admission procedure [facility] Start: 09-25-2023 Hospital admission, emergency, from emergency room, medical nature [facility] Start: 09-25-2023 Patient referral to dietitian [facility] Start: 09-23-2023 Hemoglobin A1c/Hemoglobin.total in Blood HBA1C [facility] Start: 08-01-2023 Covid-19 Vaccine ( season) Covid-19 Vaccine ( season) [facility] Start: 08-01-2023 [facility] Start: 07-31-2023 ANNUAL PCP TEAM VICTORIAN LITERATURE PROFESSOR SHARON DISEASE VISIT ANNUAL PCP TEAM CHRONIC DISEASE VISIT [facility] Start: 07-31-2023 BP CONTROLLED (<130/80) BP CONTROLLE D (<130/80) [facility] Start: 06-19-2023 Hepatitis C antibody , confirmatory test DILATED RETINAL EXAM [facility] Start: 06-16-2023 Hemoglobin A1c/Hemoglobin.total in Blood HBA1C [facility] Start: 06-12-2023 Adult depression screening assessment DEPRESSION SCREENING [facility] Start: 04-30-2023 Hepatitis B surface antibody level LDL CHOLESTEROL [facility] Start: 04-01-2023 End: 06-01-2023 Comprehensive metabolic 2000 panel - Serum or Plasma COMP METABOLIC PANEL Lab Routine Hyperkalemia Hypercalcemia Elevated serum creatinine Expected: 04/01/2023, Expires: 06/01/2023 [facility] Work Phone: Comment on above: Expected: 04/01/2023 , Expires: 06/01/2023 Start: 01-26-2023 COVID-19 VACCINE (6 - Moderna series) COVID-19 VACCINE (6 - Moderna series) [facility] Start: 12-19-2022 Hemoglobin A1c/Hemoglobin.total in Blood HBA1C [facility] Start: 12-18-2022 3 comp foot exam completed DIABETIC FOOT EXAM [facility] Start: 12-18-2022 ANNUAL PCP TEAM VICTORIAN LITERATURE PROFESSOR SHARON DISEASE VISIT ANNUAL PCP TEAM CHRONIC DISEASE VISIT [facility] Start: 12-18-2022 BP CONTROLLED (<130/80) BP CONTROLLE D (<130/80) [facility] Start: 12-18-2022 HEMOGLOBIN/HEMATOCRIT HEMOGLOBIN/HEM ATOCRIT [facility] Start: 12-18-2022 Hepatitis B screening URINE AL BUMIN:CREATININE RATIO [facility] Start: 12-18-2022 SERUM CREATININE SERUM CREATININE Cl [facility] Start: 12-02-2022 SHINGRIX VACCINE (2 of 3) AMEZQUITA GRIX VACCINE (2 of 3) [facility] Comment on above: Postponed from 04/09 (Insurance Coverage) Start: 08-10-2022 End: 10-10-2022 Bacteria identified in Urine by Culture URINE CULTURE Microbiology Routine Other microscopic hematuria UTI symptoms Expected: 08/10/2022, Expires: 10/10/2022 [facility] Work Phone: Comment on above: Expected: 08/10/2022 , Expires: 10/10/2022 Start: 08-10-2022 End: 10-10-2022 Urinalysis complete panel - Urine URINALYSIS, WITH MICROSCOPIC Lab Routine Other microscopic hematuria UTI symptoms Expected: 08/10/2022, Expires: 10/10/2022 [facility] Work Phone: Comment on above: Expected: 08/10/2022 , Expires: 10/10/2022 Start: 08-01-2022 Influenza vaccination INFLUENZA (#1) [facility] Start: 06-26-2022 Hepatitis C antibody , confirmatory test DILATED RETINAL EXAM [facility] Start: 06-18-2022 End: 06-06-2023 CBC W Auto Differential panel - Blood CBC + DIFF Lab Routine Type 2 diabetes mellitus with stage 3a chronic kidney disease, without long-term current use of insulin (HCC) Expected: 06/18/2022, Expires: 06/06/2023 [facility] Work Phone: Comment on above: Expected: 06/18/2022 , Expires: 06/06/2023 Start: 06-18-2022 End: 06-06-2023 Comprehensive metabolic 2000 panel - Serum or Plasma COMP METABOLIC PANEL Lab Routine Type 2 diabetes mellitus with stage 3a chronic kidney disease, without long-term current use of insulin (HCC) Expected: 06/18/2022, Expires: 06/06/2023 [facility] Work Phone: Comment on above: Expected: 06/18/2022 , Expires: 06/06/2023 Start: 06-18-2022 End: 06-06-2023 Hemoglobin A1c in Blood [facility] Work Phone: Comment on above: Expected: 06/18/2022 , Expires: 08/18/2022 Expected: 06/18/2022 , Expires: 06/06/2023 Start: 06-18-2022 End: 06-06-2023 Thyrotropin [Units/volume] in Serum or Plasma TSH BLD Lab Routine Type 2 diabetes mellitus with stage 3a chronic kidney disease, without long-term current use of insulin (HCC) Expected: 06/18/2022, Expires: 06/06/2023 [facility] Work Phone: Comment on above: Expected: 06/18/2022 , Expires: 06/06/2023 Start: 06-17-2022 Hemoglobin A1c/Hemoglobin.total in Blood HBA1C [facility] Start: 06-12-2022 COVID-19 VACCINE (5 - Booster for Moderna series) COVID-19 VACCINE (5 - Booster for Moderna series) [facility] Start: 2022 RSV Vaccine (1 - 1-d ose 75+ series) RSV Vaccine (1 - 1-dose 75+ series) [facility] Start: 04-18-2022 SHINGRIX VACCINE (2 of 3) AMEZQUITA GRIX VACCINE (2 of 3) [facility] Comment on above: Postponed from 04/09 (Declined at this time) Start: 04-11-2022 Adult depression screening assessment DEPRESSION SCREENING [facility] Start: 04-10-2022 Hepatitis B surface antibody level LDL CHOLESTEROL [facility] Start: 12-01-2021 ADVANCE DIRECTIVE DISCUSSION ADVANCE DIRECTIVE DISCUSSION [facility] Start: 12-01-2021 DEPRESSION ASSESSMENT DEPRESSION ASS ESSMENT [facility] Start: 06-18-2019 FECAL OCCULT BLOOD FECAL OCCULT BLOO D [facility] Start: 04-09-2012 SHINGRIX VACCINE (2 of 3) AMEZQUITA GRIX VACCINE (2 of 3) [facility] Start: 03-31-2012 Medicare Annual Well ness Visit Medicare Annual Wellness Visit [facility] Start: 2007 Hepatitis B Vaccine (1 of 3 - Risk 3-dose series) Hepatitis B Vaccine (1 of 3 - Risk 3-dose series) [facility] Start: 2007 RSV Vaccine (1 - 1-d ose 60+ series) RSV Vaccine (1 - 1-dose 60+ series) [facility] Start: 1992 COLOGUARD (FIT-DNA) COLOGUARD (FIT-D NA) [facility] Start: [address] COLONOGRAPHY [facility] Start: [address] [facility] Start: 1965 BP CONTROLLED (<130/80) BP CONTROLLE D (<130/80) [facility] End: 12-18-2022 ALBUMIN/CREAT RATIO RND UR ALBUMIN/CREAT RATIO RND UR Lab Routine Controlled type 2 diabetes mellitus with stage 3 chronic kidney disease, without long-term current use of insulin (HCC) Encounter for long-term current use of medication 3 Occurrences starting 12/18/2021 until 12/18/2022, 1 completed [facility] Work Phone: Comment on above: 3 Occurrences starti ng 12/18/2021 until 12/18/2022, 1 completed End: 12-18-2022 Basic metabolic 2000 panel - Serum or Plasma BASIC METABOLIC PNL Lab Routine Controlled type 2 diabetes mellitus with stage 3 chronic kidney disease, without long-term current use of insulin (HCC) Essential hypertension Encounter for long-term current use of medication 3 Occurrences starting 12/18/2021 until 12/18/2022, 1 completed [facility] Work Phone: Comment on above: 3 Occurrences starti ng 12/18/2021 until 12/18/2022, 1 completed End: 12-18-2022 CBC panel - Blood by Automated count CBC Lab Routine Essential hypertension 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 DIFFICILE PCR Lab Routine Diarrhea, unspecified type Ordered: 10/04/2024 [facility] Work Phone: Comment on above: Ordered: 10/04/[address] [facility] End: 05-07-2024 DXA-AXIAL SKELETON DXA-AXIAL SKELETON Radiology Routine Encounter for screening for osteoporosis Asymptomatic postmenopausal status 1 Occurrences starting 04/08/2023 until 05/07/2024 [facility] Work Phone: Comment on above: 1 Occurrences starti ng 04/08/2023 until 05/07/2024 ENTERIC BACTERIAL PA KI BY PCR ENTERIC BACTERIAL PANEL BY PCR Lab Routine Diarrhea, unspecified type Ordered: 10/04/2024 [facility] Comment on above: Ordered: 10/04/2024 FECAL LACTOFERRIN/LEUKOCYTES FECAL LACTOFERRIN/LEUKOCYTES Lab Routine Diarrhea, unspecified type Ordered: 10/04/2024 [facility] Comment on above: Ordered: 10/04/2024 Giardia lamblia+Cryptosporidium sp Ag [Presence] in Stool by Immunoassay CRYPTOSPORIDIUM AND GIARDIA ANTIGENS BY EIA Microbiology Routine Diarrhea, unspecified type Ordered: 10/04/2024 [facility] Comment on above: Ordered: 10/04/2024 End: 12-18-2022 Hemoglobin A1c/Hemoglobin.total in Blood HGB A1C Lab Routine Controlled type 2 diabetes mellitus with stage 3 chronic kidney disease, without long-term current use of insulin (HCC) Encounter for long-term current use of medication 3 Occurrences starting 12/18/2021 until 12/18/2022, 1 completed [facility] [employer] Work Phone: Comment on above: 3 Occurrences starti ng 12/18/2021 until 12/18/2022, 1 completed INR in Blood by Coagulation assay [facility] End: 09-26-2023 INR in Platelet poor plasma by Coagulation assay INR (POC) Lab Routine History of pulmonary embolus (PE) Personal history of DVT (deep vein thrombosis) Once per month for 99 Occurrences starting 10/02/2022 until 09/26/2023 [facility] Work Phone: Comment on above: Once per month for 9 9 Occurrences starting 10/02/2022 until 09/26/2023 End: 11-18-2025 INR in Platelet poor plasma by Coagulation assay INR (POC) Lab Routine History of pulmonary embolus (PE) Personal history of DVT (deep vein thrombosis) Once per month for 99 Occurrences starting 11/22/2024 until 11/18/2025 [facility] Work Phone: Comment on above: Once per month for 9 9 Occurrences starting 11/22/2024 until 11/18/2025 End: 12-18-2022 Magnesium [Mass/volume] in Serum or Plasma MAGNESIUM BLD Lab Routine Hypomagnesemia Encounter for long-term current use of medication 3 Occurrences starting 12/18/2021 until 12/18/2022, 1 completed [facility] [employer] Work Phone: Comment on above: 3 Occurrences starti ng 12/18/2021 until 12/18/2022, 1 completed [facility] W str ess and W radionuclide IV [facility] Patient Education [facility] Work Phone: Patient referral [facility] Work Phone: End: 09-26-2023 PT panel - Platelet poor plasma by Coagulation assay PROTHROMBIN TIME/PT Lab STAT History of pulmonary embolus (PE) Personal history of DVT (deep vein thrombosis) Once per month for 99 Occurrences starting 10/02/2022 until 09/26/2023 [facility] Work Phone: Comment on above: Once per month for 9 9 Occurrences starting 10/02/2022 until 09/26/2023 End: 11-18-2025 PT panel - Platelet poor plasma by Coagulation assay PROTHROMBIN TIME Lab STAT History of pulmonary embolus (PE) Personal history of DVT (deep vein thrombosis) Once per month for 99 Occurrences starting 11/22/2024 until 11/18/2025 [facility] Comment on above: Once per month for 9 9 Occurrences starting 11/22/2024 until 11/18/2025 End: 12-18-2022 T4 FREE/FREE THYROX T4 FREE/FREE THYROX Lab Routine Acquired hypothyroidism Encounter for long-term current use of medication 3 Occurrences starting 12/18/2021 until 12/18/2022, 1 completed [facility] Work Phone: Comment on above: 3 Occurrences starti ng 12/18/2021 until 12/18/2022, 1 completed End: 12-18-2022 Thyrotropin [Units/volume] in Serum or Plasma TSH BLD Lab Routine Acquired hypothyroidism Encounter for long-term current use of medication 3 Occurrences starting 12/18/2021 until 12/18/2022, 1 completed [facility] Work Phone: Comment on above: 3 Occurrences starti ng 12/18/2021 until 12/18/2022, [address] [facility] End: 12-18-2022 VITAMIN D 25 HYDROXY VITAMIN D 25 HYDROXY Lab Routine Vitamin D deficiency Encounter for long-term current use of medication 3 Occurrences starting 12/18/2021 until 12/18/2022, 1 completed [facility] Work Phone: Comment on above: 3 Occurrences starti ng 12/18/2021 until 12/18/2022, 1 completed [facility] Immunizations Immunization Date Immunization Notes Care Provider Fa josselin 12-02-2024 COVID-19 vaccine, ag e 12+ yr (PFIZER-BIONTECH COMIRNATY) Anticoag [facility]str Work Phone: [facility] 12-02-2024 Seasonal trivalent influenza vaccine, adjuvanted, preservative free Olimpia Gomez APRN.COMPENSATION DIRECTOR Work Phone: [facility] 12-02-2024 influenza virus vaccine, unspecified formulation Anticoag [facility] Work Phone: [facility] 10-05-2024 influenza, high dose seasonal, preservative-free Jose De Jesus Harrington MD Work Phone: [facility] 09-19-2023 COVID-19 vaccine, ag e 12+ yr, season (PFIZER-BIONTECH) Immunization [facility] Work Phone: [facility] Work Phone: 09-19-2023 influenza (HD-IIV4) vaccine, age 65+ yr, high dose, quadrivalent, PF (FLUZONE HIGH-DOSE) Immunization [facility] Work Phone: [facility] Work Phone: 09-19-2023 influenza virus vaccine, unspecified formulation Anticoag [facility]str Work Phone: [facility] 03-05-2023 tetanus toxoid, redu zana diphtheria toxoid, and acellular pertussis vaccine, adsorbed [facility] 09-25-2022 COVID-19 booster vaccine, age 12+ yr, bivalent (PFIZER-BIONTECH) Jose De Jesus Harrington MD Work Phone: [facility] Work Phone: 09-25-2022 influenza (aIIV4) vaccine, age 65+ yr, quadrivalent, PF (FLUAD QUAD) Anticoag Wstr Work Phone: [facility] Work Phone: 09-25-2022 influenza, injectabl e, quadrivalent, contains preservative Jose De Jesus Harrington MD Work Phone: [facility] Work Phone: 09-25-2022 influenza virus vaccine, unspecified formulation Anticoag [facility]str Work Phone: [facility] 09-11-2021 influenza, high dose seasonal, preservative-free Anticoag Wstr Work Phone: [facility] Work Phone: 09-11-2021 influenza, high-dose , quadrivalent vaccine (FLUZONE HIGH DOSE QUADRIVALENT) Anticoag Wstr Work Phone: [facility] 03-09-2021 COVID-19 vaccine, fu ll dose (MODERNA) Anticoag Wstr Work Phone: [facility] Work Phone: 02-09-2021 COVID-19 vaccine, fu ll dose (MODERNA) Anticoag Wstr Work Phone: [facility] Work Phone: 09-12-2020 influenza, high-dose , quadrivalent vaccine (FLUZONE HIGH DOSE QUADRIVALENT) Anticoag Wstr Work Phone: [facility] 09-14-2019 influenza, high dose seasonal, preservative-free Anticoag Wstr Work Phone: [facility] Work Phone: 09-14-2019 Seasonal trivalent influenza vaccine, adjuvanted, preservative free Olimpia Gomez APRN.CNP Work Phone: [facility] 10-09-2018 influenza virus vaccine, unspecified formulation Anticoag Wstr Work Phone: [facility] 07-15-2017 tetanus toxoid, redu zana diphtheria toxoid, and acellular pertussis vaccine, adsorbed Anticoag [facility]str Work Phone: [facility] Work Phone: 12-17-2016 influenza, high dose seasonal, preservative-free Anticoag Wstr Work Phone: [facility] 08-31-[address] Jose De Jesus Harrington Work Phone: [facility] 08-31-2016 influenza, high dose seasonal, preservative-free Anticoag Wstr Work Phone: [facility] 12-12-2015 pneumococcal conjuga te vaccine, 13 valent Anticoag Wstr Work Phone: [facility] 09-09-2015 influenza, high dose seasonal, preservative-free Anticoag Wstr Work Phone: [facility] 08-31-[address] Jose De Jesus Harrington Work Phone: [facility] 08-31-2013 influenza, high dose seasonal, preservative-free Anticoag Wstr Work Phone: [facility] 08-23-2013 influenza virus vaccine, unspecified formulation Anticoag Wstr Work Phone: [facility] 08-19-2012 pneumococcal polysaccharide vaccine, 23 valent Anticoag Wstr Work Phone: [facility] Work Phone: 02-13-2012 zoster vaccine, live Anticoa g Wstr Work Phone: [facility] 08-27-2010 influenza virus vaccine, unspecified formulation Anticoag Wstr Work Phone: [facility] Work Phone: 08-25-2009 influenza virus vaccine, unspecified formulation Anticoag [facility]str Work Phone: [facility] Work Phone: 08-31-2008 pneumococcal polysaccharide vaccine, 23 valent Anticoag Wstr Work Phone: [facility] 08-31-[address] Montserrat Harrington Work Phone: [facility] Work Phone: 08-31-2008 pneumococcal vaccine , unspecified formulation [facility] 10-09-2007 influenza virus vaccine, unspecified [facility] Work Phone: 07-31-2007 tetanus and diphther ia toxoids, adsorbed, preservative free, for adult use (2 Lf of tetanus toxoid and 2 Lf of diphtheria toxoid) Anticoag [facility] Work Phone: [facility] Work Phone: Payers Date Payer Category Payer Self-pay [id number] 2024 Unknown [id number] 2016 [facility] [id number] 2016 Unknown [employer] [id number] 2016-Present [phone] [address] Indemnity [id number] 2016 Unknown [employer] [id number] 2016-2022 [address] [place] [address] Indemnity [id number] 2016 Unknown [id number] 2016 Unknown [id number] 2012 Medicare MEDICARE MEDICAR E A AND B [id number] 2012-Present [phone] [place] [address] Medicare [id number] 2012 Medicare [id number] 2012 Medicare [id number] Medicare [id number] Unknown [id number] Unknown [id number] Unknown [id number] Unknown [id number] Unknown [id number] Unknown [id number] Unknown [id number] Unknown [id number] Unknown [id number] Unknown [id number] Social History Date Type Detail Facility Start: 04-24-2011 End: 10-04-2024 Tobacco smoking status NHIS Ex-smoker [facility] Start: 12-01-1959 End: 12-01-1969 History of tobacco use Current smoker [facility] Start: 12-01-1959 End: 12-01-1969 History of tobacco use Cigarette Smoker [facility] Start: 12-18-2021 End: 04-19-2025 Alcohol intake Current drinker of alcohol (finding) [facility] Start: 01-06-2020 End: 12-12-2022 History SDOH Alcohol Frequency 2 [facility] Start: 01-06-2020 End: 12-12-2022 History SDOH Alcohol Std Drinks 1 [facility] Start: 07-20-2012 History SDOH Alcohol Comment Rarely [facility] Start: 01-06-2020 End: 12-12-2022 History SDOH Social Connections Phone 5 [facility] Start: 01-06-2020 End: 12-12-2022 History SDOH Social Connections Get Together 4 [facility] Start: 01-06-2020 End: 12-12-2022 History SDOH Social Connections Congregation 3 [facility] Start: 01-06-2020 Education 12 [facility] Start: 1945 Sex Assigned At Not on file [facility] Start: 02-12-2022 End: 08-29-2022 Exposure to SARS-CoV-2 (event) Not sure [facility] Start: 04-24-2022 End: 09-26-2023 Tobacco smoking status MTIS Unknown if ever smoked [facility] Start: 05-11-2014 None [facility] Start: 05-11-2014 Alone [facility] Start: 10-25-2019 Non-smoker [facility] Start: 1945 Sex Assigned At Female [facility] Start: 04-24-2011 End: 04-03-2023 Cigarettes smoked current (pack per day) - Reported 1 [facility] Start: 04-24-2011 End: 10-04-2024 Tobacco use and exposure Smokeless tobacco non-user [facility] Work Phone: Start: 07-08-2022 End: 07-18-2022 Exposure to SARS-CoV-2 (event) Unable to assess [facility] Work Phone: Start: 12-12-2022 End: 04-03-2023 Social connection and isolation panel [facility] Do you belong to any clubs or organizations such as spiritism groups, [employer], [employer] or athletic groups, or school groups? No [facility] Are you now , , , , never or living with a partner? [facility] How often to you hav e a drink containing alcohol? Monthly or less [facility] How many standard dr inks containing alcohol do you have on a typical day? 1 or 2 [facility] How often do you hav e 6 or more drinks on 1 occasion? Never [facility] How hard is it for y ou to pay for the very basics like food, housing, medical care, and heating Not very hard [facility] Start: 11-01-2012 Adult Depression Scr eening Assessment 2 [facility] Work Phone: Do you feel stress - tense, restless, nervous, or anxious, or unable to sleep at night because your mind is troubled all the time - these days [OSQ] Only a little [facility] (I/We) worried wheth er (my/our) food would run out before (I/we) got money to buy more. Never true [facility] Do you belong to any clubs or organizations such as spiritism groups, [employer], [employer] or [employer] groups, or school groups? Yes [facility] Do you feel stress - tense, restless, nervous, or anxious, or unable to sleep at night because your mind is troubled all the time - these days [OSQ] Not at all [facility] Start: 02-24-2025 Sex Female (finding) Miguelina dowd [facility] Medical Equipment Procedure Code Equipment Code Equipment Original Text Equipment Identifier Dates [id number], [id number] Start: 12-12-2015 Comment on above: Easy Max Test blood sugar(s) one time daily and as needed. Dx: Type 2 DM - Controlled E11.22 N18.3 Insulin: No Use as instructed--C heck sugars up to once daily. DX: E11.9, Not insulin requiring MESH,VENTLEX ST ,LG 8CM FDA Start: 04-13-2018 MESH,VENTLEX ST ,LG 8CM FDA Start: 04-13-2018 MESH,VENTLEX ST ,LG 8CM FDA Start: 04-13-2018 MESH,VENTLEX ST ,LG 8CM FDA Start: 04-13-2018 MESH,VENTLEX ST ,LG 8CM FDA Start: 04-13-2018 MESH,VENTLEX ST ,LG 8CM FDA Start: 04-13-2018 MESH,VENTLEX ST ,LG 8CM FDA Start: 04-13-2018 MESH,VENTLEX ST ,LG 8CM FDA Start: 04-13-2018 MESH,VENTLEX ST ,LG 8CM FDA Start: 04-13-2018 MESH,VENTLEX ST ,LG 8CM FDA Start: 04-13-2018 MESH,VENTLEX ST ,LG 8CM FDA Start: 04-13-2018 MESH,VENTLEX ST ,LG 8CM FDA Start: 04-13-2018 MESH,VENTLEX ST ,LG 8CM FDA Start: 04-13-2018 MESH,VENTLEX ST ,LG 8CM FDA Start: 04-13-2018 MESH,VENTLEX ST ,LG 8CM FDA Start: 04-13-2018 Goals Date Patient Goal Desired Activity /State Functional Status Date Assessment Result Facility 10-09-2023 Functional status Chair [facility] Work Phone: 10-08-2023 Functional status Assistive Lillie abel Batista Walker [facility] Work Phone: 10-06-2023 Functional status Tolerates Activity Well [facility] Work Phone: 09-26-2023 Functional status Chair [facility] Work Phone: 06-06-2015 Are you deaf, or do you have serious difficulty hearing No 06/06/2015 8:01 AM Liliya Smith LPN No [facility] 06-06-2015 Are you blind, or do you have serious difficulty seeing, even when wearing glasses No 06/06/2015 8:01 AM Liliya Smith LPN No [facility] 06-06-2015 Do you have serious difficulty walking or climbing stairs No 06/06/2015 8:01 AM EDT Liliya Frey LPN No [facility] 06-06-2015 Do you have difficul ty dressing or bathing No 06/06/2015 8:01 AM EDT Liliya Frey LPN No [facility] 06-06-2015 Because of a physica l, mental, or emotional condition, do you have difficulty doing errands alone such as visiting a physician's office or shopping No 06/06/2015 8:01 AM EDT Liliya Frey LPN No [facility] Mental Status Date Assessment Result Facility 10-09-2023 Cognitive function Voice/Name [facility] Work Phone: 10-08-2023 Cognitive function Appropriate;[facility] Work Phone: 09-26-2023 Cognitive function Voice/Name [facility] Work Phone: 06-06-2015 Because of a physica l, mental, or emotional condition, do you have serious difficulty concentrating, remembering, or making decisions No 06/06/2015 8:01 AM EDT Liliya Frey LPN No [facility] Clinical Notes 02-21-2014 to 08-16-2025 Severino Healy, PERLA - 08/16/2025 4:44 PM YASMEENTGSeverino childers RN - 08/16/2025 1:09 PM EDT Note Date & Type Note Facility 08-16-2025 Note HNO ID: [id number] Author: SEVERINO HEALY, RN Service: ? Author Type: Registered Nurse Type: Progress Notes Filed: 08/16/2025 16:44 Note Text: pcp agrees with information [facility] 08-16-2025 History of Present illness Narrative pcp agrees with information patient had inr completed at [facility] patients inr is 2.5 (patients inr range is 2.0-3.0) patient is currently taking 2.5mg Tues,Thurs and 5mg all other days patients last dose change was on 01/27/25 due to a low level of 1.9 (dose at that time was 2.5mg Tues, Thurs,Sun and 5mg all other days) patient has had no changes in medication and no missed doses and no change in diet Advised patient to continue on the same dose(s) and that they would only be contacted regarding dosage and follow up instructions after review with provider, if a change is needed. Written instructions given and patient verbalized understanding. Presently scheduled in 1 month (09/22/25) for follow up INR. documented in this encounter [facility] 08-16-2025 Note HNO ID: [id number] Author: SEVERINO HEALY RN Service: ? Author Type: Registered Nurse Type: Progress Notes Filed: 08/16/2025 16:44 Note Text: patient had inr completed at [facility] patients inr is 2.5 (patients inr range is 2.0-3.0) patient is currently taking 2.5mg Tues,Thurs and 5mg all other days patients last dose change was on 01/27/25 due to a low level of 1.9 (dose at that time was 2.5mg Tues, Thurs,Sun and 5mg all other days) patient has had no changes in medication and no missed doses and no change in diet Advised patient to continue on the same dose(s) and that they would only be contacted regarding dosage and follow up instructions after review with provider, if a change is needed. Written instructions given and patient verbalized understanding. Presently scheduled in 1 month (09/22/25) for follow up INR. [facility] 08-04-2025 Progress note [facility] 08-04-2025 Progress note Note Date/Time August 04, 2025 3:06pm [facility] [address] [place] [address] OFFICE VISIT Date of Service: 08/04/25 MR#: [id number] Acct: [id number] Name: YOBANI REID Rep #: [id number] : 1945 Provider: Dr. Zafar Moreira MD Age/Sex: 80/F Location: [facility] Status: Signed HPI HPI History of Present Illness Details: This pleasant lady with history significant for coronary artery disease with drug-eluting stents, pulmonary embolism, hypertension, dyslipidemia, obesity anddiabetes mellitus is here for follow-up visit. Denies any complaints today. Intake Vital Signs 02/09/25 13:54 07/26/25 11:43 08/04/25 14:46 Height 5 ft 4 in 5 ft 4 in 5 ft 4 in Weight: 242 lb BMI 41.5 BP 125/67 H Blood Pressure Location Lt brachial Position Sitting Respiration 18 Pulse 57 L Pulse Source Monitor Intake Visit Reasons: 6 M FU Allergies adhesive Allergy (Verified 08/04/25 14:55) Rash amoxicillin (Amoxicillin) Allergy (Verified 08/04/25 14:55) Rash ampicillin Allergy (Verified 08/04/25 14:55) Rash cephalexin monohydrate (From Keflex) Allergy (Verified 08/04/25 14:55) Rash lactose (lactose intolerant) Allergy (Verified 08/04/25 14:55) Abd cramps/diarrhea Penicillins Allergy (Verified 08/04/25 14:55) Rash Sulfa (Sulfonamide Antibiotics) Allergy (Verified 08/04/25 14:55) Rash Medications ?Medication ?Instructions ?Recorded ?Confirmed ?Type aspirin 81 mg chewable tablet 81 mg PO QHS hearth 05/0107/26/25 History levothyroxine 112 mcg tablet 112 mcg PO DAILY thyroid 05/10/14 07/26/25 History nitroglycerin 0.4 mg sublingual 0.4 mg sublingual Q5M PRN Chest 05/10/14 07/26/25 History tablet Pain fenofibrate 160 mg tablet 160 mg PO DAILY cholesterol 09/14/19 07/26/25 History magnesium oxide 400 mg (241.3 mg 800 mg PO BID supplim ent 10/27/19 07/26/25 History magnesium) tablet atenolol 25 mg tablet 25 mg PO DAILY blood pressur e 07/10/20 07/26/25 History atorvastatin 40 mg tablet 40 mg PO QHS cholestorol 09/1907/26/25 History hydrocortisone 2.5 % topical cream 1 applic topical BI D PRN Itching 07/10/20 07/26/25 History isosorbide mononitrate 30 mg 30 mg PO DAILY heart #90 tabs 08/10/20 07/26/25 Rx tablet,extended release 24 hr fosinopril 40 mg tablet 40 mg PO BID this is a dose 09/01/23 07/26/25 Rx increase #60 tabs warfarin 2.5 mg tablet 2.5 mg PO .TUTHSU 08/25/24 0 07/26/25 History warfarin 5 mg tablet 5 mg PO MOWEFRSA blood thinn er 08/25/24 07/26/25 History potassium chloride 20 mEq 20 meq PO QDAY #90 tabs 01/2907/26/25 Rx tablet,extended release furosemide 40 mg tablet 40 mg PO Q OTHER DAY #90 tab s 02/16/25 07/26/25 Rx estradiol 0.01% (0.1 mg/gram) 1 g vaginal 3XW 08/04/25 08/04/25 History vaginal cream Have you fallen in the past year?: No PFSH Medical History Urinary tract infection Nocturia Urge incontinence Overactive bladder Obstructive sleep apnea Debility Wears glasses Post-menopausal Thyroid disease Diabetes Arthritis Bladder disease High cholesterol History of ulceration Former smoker Leg cramps History of echocardiogram History of stress test Cardiology follow-up encounter Hypertension 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 RBBB (right bundle branch block) Hypothyroidism GERD (gastroesophageal reflux disease) History of pulmonary embolism (~08/2017) Presence 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 (10/25/19) Atherosclerotic heart disease of [place] coronary artery without angina pectoris Mixed hyperlipidemia Essential hypertension Incisional hernia, without obstruction or gangrene History of gastric ulcer Obesity DM2 (diabetes mellitus, type 2) Pulmonary embolism (08/2017) Surgical History History of cardiac catheterization History of appendectomy Presence of coronary angioplasty implant and graft (~10/06/09) H/O hernia repair History of heart artery stent S/P cardiac catheterization S/P trigger finger release S/P hysterectomy S/P carpal tunnel release S/P tonsillectomy S/P colonoscopy (~05/2013) Family History Father CAD (coronary artery disease) Mother CVA (cerebral vascular accident) Hypertension Social History household members: none housing: house number of children: 0 current occupational status: retired pets and animals: No Smoking Status: Former smoker how long ago did patient quit smokin yrs alcohol intake: current alcohol intake frequency: holidays/special occasions only Alcohol type: wine substance use type: does not use caffeine: No ROS Const Const: Negative for fatigue or weakness Eyes Eyes: Negative for change in vision ENT ENT: Negative for dizziness or balance problems Cardio Chest Pain: No Palpitations: No Edema: Bilateral (occ at night) Resp Respiratory: Negative for SOB with activity, SOB at rest or SOB orthopnea\SOB lying down GI GI: Negative nausea or heartburn Musc Musc: Negative for balance problems Neuro Neuro: Negative for dizziness, lightheadedness, near syncope, syncope or weakness Endo Endo: Negative for fatigue Cardiology Exam Const Appearance: comfortable and no acute distress Nutritional Appearance: obese Neck Neck: no JVD Carotids: Negative bruit Chest Auscultation: Bilateral: Clear to Auscultation Cardio Rate: regular rate Rhythm: regular rhythm Heart sounds: S1 normal and S2 normal GI GI: obese Neuro General: patient alert, patient awake and patient oriented x3 Extremities Lower Extremity Edema: Trace: Bilateral Bilateral venous varicosities noted. Supplemental Info Supplemental Information Labs: HDL Cholesterol 57 mg/dL (40-) Cholesterol 159 mg/dL (<=200) Triglycerides 78 mg/dL (-199) Diagnostics: Echocardiogram Stress Test Stress Test Nuclear Medicine Pulmonary: No Data to Display Past Visits: Cardiology Visit 08/04/25 Assessment and Plan Assessment and Plan (1) Coronary artery disease: Status: Chronic Plan: History of drug-eluting stents to the LAD and left circumflex. Aspirin, Imdur, atenolol. Check Lexiscan stress Myoview to rule out silent ischemia. (2) Presence 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: Status: Chronic Comment: PTCA/LLUVIA to LAD 10/06/09 @ [facility] 10/25/2019:Single vessel CAD of the mid LCX Non obstructive coronary arteries; Widely patent mid LAD stents. Successful PTCA/LLUVIA mid LCX with a 3.0 x 16 Promus Synergy 10/25/2019 per HAON @ [facility] Plan: Continue aspirin. Atenolol. Imdur. Risk factor modification. (3) Mixed hyperlipidemia: Status: Chronic Plan: On atorvastatin. Per patient, her PCP manages her lipids. Continue. (4) 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ure: Status: Chronic Plan: Continue to monitor. Risk factor modification. Check echocardiogram. (5) Essential hypertension: Status: Chronic Plan: Atenolol, fosinopril, isosorbide. Furosemide. (6) Pulmonary embolism: Status: Chronic Plan: History of pulmonary embolism. On warfarin. Continue to manage as per primary care physician. (7) nursing home current use of 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: Status: Chronic Plan: On warfarin for history of pulmonary embolism. Continue to manage as per primary care physician. (8) DM2 (diabetes mellitus, type 2): Status: Chronic Qualifiers: Diabetes mellitus complication status: with circulatory complication Diabetes mellitus complication detail: with other circulatory complications Diabetes mellitus prison insulin use: without prison use Qualified Code(s): E11.59 - Type 2 diabetes mellitus with other circulatory complications Plan: Follow as per PCP. (9) Obesity: Status: Chronic Qualifiers: Obesity type: due to excess calories Obesity classification: adult class 3 (BMI >= 40) Serious obesity comorbidity presence: with serious comorbidity Body mass index: BMI 40.0-44.9 Qualified Code(s): E66.01 - Morbid (severe) obesity due to excess calories; Z68.41 - Body mass index [BMI] 40.0-44.9, adult Plan: Lose weight. 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 Class 3 severe obesity due to excess calories with serious comorbidity and body mass index (BMI) of 40.0 to 44.9 in adult E66.01; Z68.41 Obesity type: due to excess calories Obesity classification: adult class 3 (BMI >= 40) Serious obesity comorbidity presence: with serious comorbidity Body mass index: BMI 40.0-44.9 Coding Level of Care Code Off vis,est,level 4 Diagnoses Coronary artery disease I25.10 Presence 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 Z95.5 Mixed hyperlipidemia E78.2 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ure I51.89 Essential hypertension I10 Pulmonary embolism I26.99 nursing home current use of 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 Z79.01 Type 2 diabetes mellitus with other circulatory complication, without long-term current use of insulin E11.59 Diabetes mellitus complication status: with circulatory complication Diabetes mellitus complication detail: with other circulatory complications 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 Jose De Jesus Harrington MD ~ [facility] Work Phone: 1(656) 523-847908-12-2025 Evaluation note* Diagnosis Onset Date Resolution Status Admit Date Nocturia acute July 12, 025 9:49am Overactive bladder acute July 12, 2025 9:49am Urge incontinence acute July 12, 2025 9:49am Urinary tract infection acute A ugust 2024 9:49am [facility] Work Phone: 1(113) 413-769008-12-2025 Evaluation note* Diagnosis Onset Date Resolution Status Admit Date Nocturia acute July 12, 025 9:49am Overactive bladder acute July 12, 2025 9:49am Urge incontinence acute July 12, 2025 9:49am Urinary tract infection acute A ugust 2024 9:49am Overactive bladder acute July 26, 2025 10:35am Urge incontinence acute July 26, 2025 10:35am Coronary artery disease chronic S eptember 2024 2:05pm 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ure chronic August 04, 2025 2:05pm DM2 (diabetes mellitus, type 2) chronic August 04, 025 2:05pm Essential hypertension chronic Se ptember 2024 2:05pm 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 Author Type: Nurse Specialist Type: Progress Notes Filed: 06/30/2025 15:56 Note Text: Continue Coumadin current dosing unchanged and [facility] of Present illness Narrative* Herbert Jay APRN.CNS - 06/30/2025 2:54 PM EDT Continue Coumadin current dosing unchanged and check INR in 4 weeks * Severino Healy RN - 06/30/2025 12:30 PM EDT patient had inr completed at [facility] patients inr is 2.3 (patients inr range is 2.0-3.0) patient is currently taking 2.5mg Tues,Thurs and 5mg all other days patients last dose change was on 01/27/25 due to a low level of 1.9 (dose at that time was 2.5mg Tues,Thurs,Sun and 5mg all other days) patient has had no changes in medication and no missed doses and no change in diet Advised patient to continue on the same dose(s) and that they would only be contacted regarding dosage and follow up instructions after review with provider, if a change is needed. Written instructions given and patient verbalized understanding. Presently scheduled in 4 weeks (07/28/25) for follow up INR. [facility] in [facility] NoteHNO ID: [id number] Author: SEVERINO HEALY RN Service: ? Author Type: Registered Nurse Type: Progress Notes Filed: 06/30/2025 15:56 Note Text: patient had inr completed at [facility] patients inr is 2.3 (patients inr range is 2.0-3.0) patient is currently taking 2.5mg Tues,Thurs and 5mg all other days patients last dose change was on 01/27/25 due to a low level of 1.9 (dose at that time was 2.5mg Tues,Thurs,Sun and 5mg all other days) patient has had no changes in medication and no missed doses and no change in diet Advised patient to continue on the same dose(s) and that they would only be contacted regarding dosage and follow up instructions after review with provider, if a change is needed. Written instructions given and patient verbalized understanding. Presently scheduled in 4 weeks (07/28/25) for follow up INR.[facility] NoteHNO ID: [id number] Author: HERBERT JAY APRN.GARDENING SUPERVISOR Service: ? Author Type: Nurse Specialist Type: Progress Notes Filed: 05/26/2025 15:39 Note Text: Continue with Coumadin dose unchanged and check INR in 1 monthTr[facility]06-[facility] History of Present illness Narrative* Herbert Jay APRN.GARDENING SUPERVISOR - 05/26/2025 12:38 PM EDT Continue with Coumadin dose unchanged and check INR in 1 month * Severino Healy RN - 05/26/2025 12:21 PM EDT patient had inr completed at [facility] patients inr is 2.5 (patients inr range is 2.0-3.0) patient is currently taking 2.5mg Tues,Thurs and 5mg all other days patients last dose change was on 01/27/25 due to a low level of 1.9 (dose at that time was 2.5mg Tues,Thurs,Sun and 5mg all other days) patient has had no change in medication and no missed doses and no change in diet Advised patient to continue on the same dose(s) and that they would only be contacted regarding dosage and follow up instructions after review with provider, if a change is needed. Written instructions given and patient verbalized understanding. Presently scheduled in 1 month (06/30/25) for follow up INR. documented in this encounterDet[facility]06-[facility]25 NoteHNO ID: [id number] Author: SEVERINO HEALY RN Service: ? Author Type: Registered Nurse Type: Progress Notes Filed: 05/26/2025 15:39 Note Text: patient had inr completed at [facility] patients inr is 2.5 (patients inr range is 2.0-3.0) patient is currently taking 2.5mg Tues,Thurs and 5mg all other days patients last dose change was on 01/27/25 due to a low level of 1.9 (dose at that time was 2.5mg Tues,Thurs,Sun and 5mg all other days) patient has had no change in medication and no missed doses and no change in diet Advised patient to continue on the same dose(s) and that they would only be contacted regarding dosage and follow up instructions after review with provider, if a change is needed. Written instructions given and patient verbalized understanding. Presently scheduled in 1 month (06/30/25) for follow up INR.[facility]05-29-[facility]25 NoteHNO ID: [id number] Author: HERBERT JAY APRN.CNS Service: ? Author Type: Nurse Specialist Type: Progress Notes Filed: 04/28/2025 16:47 Note Text: Continue with Coumadin dose unchanged check INR in 4 weeksTr[facility]05-29-20[facility] History of Present illness Narrative* Herbert Jay APRN.CNS - 04/28/2025 4:43 PM EDT Continue with Coumadin dose unchanged check INR in 4 weeks * Severino Healy RN - 04/28/2025 11:53 AM EDT patient had inr completed at [facility] patients inr is 2.6 (patients inr range is 2.0-3.0) patient is currently taking 2.5mg Tues,Thurs and 5mg all other days patients last dose change was on 01/27/25 due to a low level of 1.9 (dose at that time was 2.5mg Tues,Thurs,Sun and 5mg all other days) patient has had no change in medication and no missed doses and no change in diet Advised patient to continue on the same dose(s) and that they would only be contacted regarding dosage and follow up instructions after review with provider, if a change is needed. Written instructions given and patient verbalized understanding. Presently scheduled in 4 weeks (05/26/25) for follow up INR. documented in this encounterDet[facility]05-29-2025 NoteHNO ID: [id number] Author: SEVERINO HEALY RN Service: ? Author Type: Registered Nurse Type: Progress Notes Filed: 04/28/2025 16:47 Note Text: patient had inr completed at [facility] patients inr is 2.6 (patients inr range is 2.0-3.0) patient is currently taking 2.5mg Tues,Thurs and 5mg all other days patients last dose change was on 01/27/25 due to a low level of 1.9 (dose at that time was 2.5mg Tues,Thurs,Sun and 5mg all other days) patient has had no change in medication and no missed doses and no change in diet Advised patient to continue on the same dose(s) and that they would only be contacted regarding dosage and follow up instructions after review with provider, if a change is needed. Written instructions given and patient verbalized understanding. Presently scheduled in 4 weeks (05/26/25) for follow up INR.[facility]05-[facility]-2025 NoteHNO ID: [id number] Author: OLIMPIA GOMEZ APRN.[facility] Service: ? Author Type: Nurse Practitioner Type: Progress Notes Filed: 04/19/2025 09:01 Note Text: SUBJECTIVE Yobani Reid is a 79 year old female here today for a check up on her medical problems. Chief Complaint Patient presents with: F/U 6 months HPI Pao is a 79-year-old female with a history of HTN, sleep apnea, and trigger finger, presenting for a follow-up visit. Pao reports intermittent symptoms of trigger finger in both hands, describing it as manageable and not severe enough to seek further treatment at this time. She has a history of three trigger finger releases. She has been evaluated by sleep medicine and was advised to use an oral appliance for her mild sleep apnea. However, she has not pursued this treatment due to concerns about exacerbating her TMJ. Instead, she has been practicing mouth taping at night, as recommended by her dentist, and sleeps in a recliner, which she finds effective. She is under the care of Dr. Moreiar at [facility] and is currently taking potassium supplements. Recent lab results from January show a GFR of 37 and normal potassium levels. She is also monitored by the [facility] for her INR levels. She reports running out of atenolol and requests a two-week supply. She denies recent hospitalizations or ER visits, as well as any recent episodes of chest pain, chest tightness, or dyspnea. She does not report any concerns about anxiety or depression. She has been actively participating in a stretch class at the [facility] twice a week, which she believes has improved her balance and flexibility. She has also been working on weight loss and has lost 3 pounds, though she notes hitting a plateau. She has a living will and power of divorce attorney in place. Her medications were reviewed today and her list is now up to date. Medications Current Outpatient Medications Medication Sig isosorbide mononitrate ER (IMDUR) 30 mg 24 hr tablet Take 1 tablet by mouth once daily. atorvastatin (LIPITOR) 40 mg tablet Take 1 tablet by mouth daily at bedtime. For cholesterol. levothyroxine (SYNTHROID) 112 mcg tablet Take 1 tablet by mouth once daily. magnesium oxide (MAG-OX) 400 mg (241.3 mg magnesium) tablet Take 2 tablets by mouth two times a day. nitroglycerin sublingual (NITROQUICK) 0.4 mg SL tablet Dissolve 1 tablet under the tongue as needed. DISSOLVE ON TONGUE FOR CHEST PAIN. IF NO PAIN RELIEF, CALL 911 Cholecalciferol, Vitamin D3, 50 mcg (2,000 unit) cap Take 1 capsule by mouth once daily. solifenacin (VESICARE) 5 mg tablet Take 5 mg by mouth once daily. hydrocortisone 2.5 % ointment Apply 1 application to affected area twice daily. warfarin (COUMADIN) 5 mg tablet Take 5 mg Mon, Wed and 7.5 mg all other days or as directed (Patient taking differently: Take 5 mg by mouth once daily. Take 5 mg daily x 5 days and 2.5mg and ) meclizine (ANTIVERT) 25 mg tab Take 1 tablet by mouth every 6 hours as needed (dizziness). (prescription given from ER) aspirin(ECOTRIN LOW STRENGTH 81 MG TAB) Take one(1) tablet daily. oxymetazoline hcl(AFRIN SINUS NO DRIP 0.05 % NASAL MIST) as necessary omeprazole (PRILOSEC) 40 mg capsule Take 1 capsule by mouth once daily. fosinopril sodium (MONOPRIL) 40 mg tablet Take 1 tablet by mouth once daily. Fenofibrate (LOFIBRA) 160 mg tablet Take 1 tablet by mouth once daily. atenolol (TENORMIN) 25 mg tablet Take 1 tablet by mouth once daily. atenolol (TENORMIN) 25 mg tablet Take 1 tablet by mouth once daily. amLODIPine (NORVASC) 2.5 mg tablet Take 1 tablet by mouth once daily. (Patient not taking: Reported on 04/19/2025) blood sugar diagnostic (BLOOD GLUCOSE TEST) test strip Easy Max Test blood sugar(s) one time daily and as needed. Dx: Type 2 DM - Controlled E11.22 N18.3 Insulin: No Blood-Glucose Meter monitoring kit Glucose Meter of Choice - Kit - Dx: Other DM Code E11.22 N18.3 Lancets lancets Use as instructed--Check sugars up to once daily. DX: E11.9, Not insulin requiring No current facility-administered medications for this visit. 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 Chief Complaint Patient presents with: F/U 6 months HPI Pao is a 79-year-old female with a history of HTN, sleep apnea, and trigger finger, presenting for a follow-up visit. Pao reports intermittent symptoms of trigger finger in both hands, describing it as manageable and not severe enough to seek further treatment at this time. She has a history of three trigger finger releases. She has been evaluated by sleep medicine and was advised to use an oral appliance for her mild sleep apnea. However, she has not pursued this treatment due to concerns about exacerbating her TMJ. Instead, she has been practicing mouth taping at night, as recommended by her dentist, and sleeps in a recliner, which she finds effective. She is under the care of Dr. Moreira at [facility] and is currently taking potassium supplements. Recent lab results from January show a GFR of 37 and normal potassium levels. She is also monitored by the [facility] for her INR levels. She reports running out of atenolol and requests a two-week supply. She denies recent hospitalizations or ER visits, as well as any recent episodes of chest pain, chest tightness, or dyspnea. She does not report any concerns about anxiety or depression. She has been actively participating in a stretch class at the [facility] twice a week, which she believeshas improved her balance and flexibility. She has also been working on weight loss and has lost 3 pounds, though she notes hitting a plateau. She has a living will and power of divorce attorney in place. Her medications were reviewed today and her list is now up to date. Medications Current Outpatient Medications Medication Sig isosorbide mononitrate ER (IMDUR) 30 mg 24 hr tablet Take 1 tablet by mouth once daily. atorvastatin (LIPITOR) 40 mg tablet Take 1 tablet by mouth daily at bedtime. For cholesterol. levothyroxine (SYNTHROID) 112 mcg tablet Take 1 tablet by mouth once daily. magnesium oxide (MAG-OX) 400 mg (241.3 mg magnesium) tablet Take 2 tablets by mouth two times a day. nitroglycerin sublingual (NITROQUICK) 0.4 mg SL tablet Dissolve 1 tablet under the tongue as needed. DISSOLVE ON TONGUE FOR CHEST PAIN. IF NO PAIN RELIEF, CALL 911 Cholecalciferol, Vitamin D3, 50 mcg (2,000 unit) cap Take 1 capsule by mouth once daily. solifenacin (VESICARE) 5 mg tablet Take 5 mg by mouth once daily. hydrocortisone 2.5 % ointment Apply 1 application to affected area twice daily. warfarin (COUMADIN) 5 mg tablet Take 5 mg Mon, Wed and 7.5 mg all other days or as directed (Patient taking differently: Take 5 mg by mouth once daily. Take 5 mg daily x 5 days and 2.5mg Tues and Thurs) meclizine (ANTIVERT) 25 mg tab Take 1 tablet by mouth every 6 hours as needed (dizziness). (prescription given from ER) aspirin(ECOTRIN LOW STRENGTH 81 MG TAB) Take one(1) tablet daily. oxymetazoline hcl(AFRIN SINUS NO DRIP 0.05 % NASAL MIST) as necessary omeprazole (PRILOSEC) 40 mg capsule Take 1 capsule by mouth once daily. fosinopril sodium (MONOPRIL) 40 mg tablet Take 1 tablet by mouth once daily. Fenofibrate (LOFIBRA) 160 mg tablet Take 1 tablet by mouth once daily. atenolol (TENORMIN) 25 mg tablet Take 1 tablet by mouth once daily. atenolol (TENORMIN) 25 mg tablet Take 1 tablet by mouth once daily. amLODIPine (NORVASC) 2.5 mg tablet Take 1 tablet by mouth once daily. (Patient not taking: Reportedon 04/19/2025) blood sugar diagnostic (BLOOD GLUCOSE TEST) test strip Easy Max Test blood sugar(s) one time daily and as needed. Dx: Type 2 DM - Controlled E11.22 N18.3 Insulin: No Blood-Glucose Meter monitoring kit Glucose Meter of Choice - Kit - Dx: Other DM Code E11.22 N18.3 Lancets lancets Use as instructed--Check sugars up to once daily. DX: E11.9, Not insulin requiring No current facility-administered medications for this visit. ALLERGIES Allergen Reactions Adhesive Tape (Herminia* Other: See Comments Burning and redness where tape touches skin Adhesive Tape-Silic* Rash Severe burning, red rash following colonoscopy at site of monitor on back Amoxicillin Rash Ampicillin Rash Niacin Rash flushing Penicillins Rash Sulfa (Sulfonamide * Rash ACTIVE PROBLEM LIST Pulmonary Embolism Without Acute Cor Pulmonale ([facility]) - 10/13/2023 Vitamin D Deficiency - 02/24/2022 Hypomagnesemia - 02/24/2022 Hypertensive Kidney Disease With Stage 3a Chronic Kidney Disease ([facility]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 Stage 3a Chronic Kidney Disease (Hcc) - 02/23/2010 Postsurgical Percutaneous Transluminal Coronary Angioplasty Status - 12/15/2009 Coronary Atherosclerosis - 10/24/2009 Chronic Rhinitis - 06/06/2009 Essential Hypertension Mixed Hyperlipidemia Postmenopausal Atrophic Vaginitis Acquired Hypothyroidism Unspecified Urinary Incontinence Social History Tobacco Use Smoking status: Former Current packs/day: 0.00 Average packs/day: 1 pack/day for 10.0 years (10.0 ttl pk-yrs) Types: Cigarettes Start date: 12/01/1959 Quit date: 12/01/1969 Years since quittin.4 Smokeless tobacco: Never Substance Use Topics Alcohol use: Yes Comment: Rarely Drug use: No Review of Systems Constitutional: Negative. Respiratory: Negative. Cardiovascular: Negative. OBJECTIVE BP 128/60 Pulse 54 Wt 247 lb 2.2 oz (112.1kg) SpO2 98% Physical Exam Vitals and nursing note reviewed. Constitutional: General: She is awake. She is not in acute distress. Appearance: Normal appearance. She is well-developed and well-groomed. She is not ill-appearing, toxic-appearing or diaphoretic. HENT: Head: Normocephalic. Right Ear: External ear normal. Left Ear: External ear normal. Nose: Nose normal. Eyes: General: Vision grossly intact. Conjunctiva/sclera: Conjunctivae normal. Pupils: Pupils are equal, round, and reactive to light. Neck: Vascular: No JVD. Trachea: Trachea normal. Cardiovascular: Rate and Rhythm: Normal rate and regular rhythm. Pulses: Normal pulses. Heart sounds: Normal heart sounds. No murmur heard. Pulmonary: Effort: Pulmonary effort is normal. No accessory muscle usage, prolonged expiration or respiratory distress. Breath sounds: Normal breath sounds. Musculoskeletal: Cervical back: Neck supple. Skin: General: Skin is warm and dry. Capillary Refill: Capillary refill takes less than 2 seconds. Neurological: General: No focal deficit present. Mental Status: She is alert and oriented to person, place, and time. Mental status is at baseline. Psychiatric: Attention and Perception: Attention and perception normal. Mood and Affect: Mood and affect normal. Speech: Speech normal. Behavior: Behavior normal. Behavior is cooperative. Thought Content: Thought content normal. Cognition and Memory: Cognition and memory normal. Judgment: Judgment normal. ASSESSMENT/PLAN: 1. Hypertensive kidney disease with stage 3b chronic kidney disease (HCC) (I12.9) Essential hypertension (I10) CKD stage 3b with GFR of 37 mL/min/1.73 m per recent metabolic panel in January. Blood pressure well-controlled on atenolol. - Ordered comprehensive metabolic panel to monitor kidney function. - Sent 2-week supply of atenolol to [facility]. - Continue current antihypertensive regimen. 2. Type 2 diabetes mellitus with stage 3b chronic kidney disease, without long- term current use of insulin ([facility]) (E11.22) Diabetes management requires monitoring of renal function due to CKD stage 3b. - Ordered HbA1c to assess glycemic control. 3. Mixed hyperlipidemia (E78.2) Requires routine monitoring. - Ordered lipid panel. 4. Acquired hypothyroidism (E03.9) Stable on current medication regimen. - Sent prescription refills to [facility]. 5. Vitamin D deficiency (E55.9) Stable on current supplementation. - Sent prescription refills to [facility]. 6. Trigger ring finger of left hand (M65.342) Morning joint stiffness of hand, left (M25.642) Morning joint stiffness of right hand (M25.641) Intermittent symptoms of trigger finger in both hands; patient has a history of three previous trigger finger releases. - Monitor symptoms; consider referral to orthopedics for corticosteroid injections if symptoms worsen. 7. Body mass index (BMI) 40.0-44.9, adult ([facility]) (Z68.41) Current weight management includes participation in a stretch class at the [facility] twice weekly. - Continue current physical activity regimen. - Monitor weight and encourage gradual weight loss. 8. PATRICIA (obstructive sleep apnea) (G47.33) Mild PATRICIA; patient declines further intervention beyond current management. - Continue current management. 9. Encounter for screening examination for other mental health and behavioral disorders (Z13.39) Screening for depression (Z13.31) No current concerns for anxiety or depression. 10. Encounter for therapeutic drug monitoring (Z51.81) [facility]. 11. Temporomandibular joint disorder (M26.609) Stable; patient declines use of oral appliance due to potential exacerbation of TMJ symptoms. Recording using [employer] software for draft documentation of the visit was discussed with the patient/authorized metals sales representative; all questions welcomed and answered. Patient/authorized metals sales representative agreed to proceed Portions of this note have been entered by ancillary staff. I have reviewed and when necessary edited, so that they are an adequate record of my encounter with this patient Please note that parts of this document were created using voice recognition software and therefore may contain grammatical errors. Patient verbalizes understanding of instructions from today's visit and in agreement with treatmentplan. Questions answered. Agrees to call the office if questions, concerns of issues with acute symptoms not improving or if they worsen. See diagnoses and orders for additional plan(s). Allergies and medications were reviewed, list was updated, and refills given if needed. Past medical, surgical, social, and family history reviewed and updated as appropriate. Encouraged proper diet & exercise as well as compliance with taking medications. Age- appropriate health preventative measures were discussed. Return if symptoms worsen or fail to improve, for Keep next scheduled appointment.. Olimpia Gomez APRN-KAYLIE documented in this [facility]Det[facility]25 NoteHNO ID: [id number] Author: FELICITY MARTINEZ MA Service: ? Author Type: Napkin Band Wrapper Type: Progress Notes Filed: 04/11/2025 08:46 Note Text: POPULATION HEALTH NAVIGATION OUTREACH Action/FYI updated appointment notes HCC CLOSURE Topic Due (Y or N) Comments Medicare Wellness y PCP Follow up Colorectal Cancer Screening Controlling Blood Pressure y A1C HCC Flu Vaccine Care Everywhere Reviewed MyChart Activation Updated Appointment Note y Reason for Outreach Care Gap/HCC or Scheduling Wellness Visits Care Gaps due: Medicare Annual Wellness Visit Controlling Blood Pressure Patient Contacted: Spoke to patient/parent/or legal guardian Patient identified by name and : No Navigation Signature: Felicity Martinez MA April 11, 2025 8:45 [facility]05-12-2025 History of Present illness Narrative* Felicity Martinez MA - 04/11/2025 8:44 AM EDT POPULATION HEALTH NAVIGATION OUTREACH Action/FYI updated appointment notes HCC CLOSURE Topic Due (Y or N) Comments Medicare Wellness y PCP Follow up Colorectal Cancer Screening Controlling Blood Pressure y A1C HCC Flu Vaccine Care Everywhere Reviewed MyChart Activation Updated Appointment Note y Reason for Outreach Care Gap/HCC or Scheduling Wellness Visits Care Gaps due: Medicare Annual Wellness Visit Controlling Blood Pressure Patient Contacted: Spoke to patient/parent/or legal guardian Patient identified by name and : No Navigation Signature: Felicity Martinez MA April 11, 2025 8:45 AM documented in this encounterDetwiler [facility]05-[facility] NotePatient Outreach (NETNAV) YOBANI REID ([id number]) 1945 F Date Time Provider Department 04/11/25 FELICITY MARTINEZ NETNAV During your visit today, we recorded the following information about you: Felicity Martinez MA 04/11/2025 8:46 AM Signed POPULATION HEALTH NAVIGATION OUTREACH Action/FYI updated appointment notes HCC CLOSURE Topic Due (Y or N) Comments Medicare Wellness y PCP Follow up Colorectal Cancer Screening Controlling Blood Pressure y A1C HCC Flu Vaccine Care Everywhere Reviewed MyChart Activation Updated Appointment Note y Reason for Outreach Care Gap/HCC or Scheduling Wellness Visits Care Gaps due: Medicare Annual Wellness Visit Controlling Blood Pressure Patient Contacted: Spoke to patient/parent/or legal guardian Patient identified by name and : No Navigation Signature: Felicity Martinez MA April 11, 2025 8:45 AM Allergies As of Date: 04/11/2025 Noted Allergy Reaction ADHESIVE TAPE (ROSINS) 11/11/2005 14 - Other: See Comments Comments: Burning and redness where tape touches skin ADHESIVE TAPE-SILICONES 12/29/2023 2 - Rash Comments: Severe burning, red rash following colonoscopy at site of monitor on back AMOXICILLIN 11/11/2005 2 - Rash AMPICILLIN 11/11/2005 2 - Rash NIACIN 11/11/2005 2 - Rash Comments: flushing PENICILLINS 09/28/2009 2 - Rash SULFA (SULFONAMIDE ANTIBIOTICS) 11/18/2005 2 - Rash Date Reviewed: 11/03/2024 Reviewed by: Roseann Elizabeth APRN.COMPENSATION DIRECTOR - Fully Assessed Reason for Visit: Population Health Navigation Outreach [3910] Cmt: NAHOMI CARRASCO CORIE PCSA Prescriptions as of 04/11/2025 - isosorbide mononitrate ER (IMDUR) 30 mg 24 hr tablet Take 1 tablet by mouth once daily. - atorvastatin (LIPITOR) 40 mg tablet Take 1 tablet by mouth daily at bedtime. For cholesterol. - levothyroxine (SYNTHROID) 112 mcg tablet Take 1 tablet by mouth once daily. - warfarin (COUMADIN) 5 mg tablet 5mg four days weekly and 2.5 mg all other days or as directed based on INR - magnesium oxide (MAG-OX) 400 mg (241.3 mg magnesium) tablet Take 2 tablets by mouth two times a day. - amLODIPine (NORVASC) 2.5 mg tablet Take 1 tablet by mouth once daily. - fosinopril sodium (MONOPRIL) 40 mg tablet Take 1 tablet by mouth once daily. - atenolol (TENORMIN) 25 mg tablet Take 1 tablet by mouth once daily. - Fenofibrate (LOFIBRA) 160 mg tablet Take 1 tablet by mouth once daily. - omeprazole (PRILOSEC) 40 mg capsule Take 1 capsule by mouth once daily. - nitroglycerin sublingual (NITROQUICK) 0.4 mg SL tablet Dissolve 1 tablet under the tongue as needed. DISSOLVE ON TONGUE FOR CHEST PAIN. IF NO PAIN RELIEF, CALL 911 - Cholecalciferol, Vitamin D3, 50 mcg (2,000 unit) cap Take 1 capsule by mouth once daily. - solifenacin (VESICARE) 5 mg tablet Take 5 mg by mouth once daily. - hydrocortisone 2.5 % ointment Apply 1 application to affected area twice daily. - warfarin (COUMADIN) 5 mg tablet Take 5 mg Mon, Wed and 7.5 mg all other days or as directed - blood sugar diagnostic (BLOOD GLUCOSE TEST) test strip Easy Max Test blood sugar(s) one time daily and as needed. Dx: Type 2 DM - Controlled E11.22 N18.3 Insulin: No - Blood-Glucose Meter monitoring kit Glucose Meter of Choice - Kit - Dx: Other DM Code E11.22 N18.3 - meclizine (ANTIVERT) 25 mg tab Take 1 tablet by mouth every 6 hours as needed (dizziness). (prescription given from ER) - Lancets lancets Use as instructed--Check sugars up to once daily. DX: E11.9, Not insulin requiring - aspirin(ECOTRIN LOW STRENGTH 81 MG TAB) Take one(1) tablet daily. 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 Occult GI bleeding [R19.5] 03/03/2013 08/23/2013 Diabetes mellitus type 2, controlled, without c*02/21/2014 01/15/2018 Class 3 severe obesity due to excess calories w*12/12/2015 Plantar fasciitis, bilateral [M72.2] 06/11/2016 Type 2 diabetes mellitus with stage 3a chronic *01/15/2018 nursing home current use of 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 [Z79.01]05/08/2018 History of pulmonary embolus (PE) [Z86.711] 05/08/2018 Hypertensive kidney disease with stage 3a chron*04/16/2021 Vitamin D deficiency [E55.9] 02/24/2022 Hypomagnesemia [E83.42] 02/24/2022 Pulmonary embolism without acute cor pulmonale *10/13/2023 Enc (more content not included)...[facility]05-02-[facility]25 NoteHNO ID: [id number] Author: HERBERT JAY APRN.GARDENING SUPERVISOR Service: ? Author Type: Nurse Specialist Type: Progress Notes Filed: 04/01/2025 16:28 Note Text: Continue Coumadin dose unchanged and check INR in 4 weeksTr[facility]05-02-[facility]25 History of Present illness Narrative* Herbert Jay APRN.CNS - 04/01/2025 11:05 AM EDT Continue Coumadin dose unchanged and check INR in 4 weeks * Severino Healy RN - 04/01/2025 10:53 AM EDT patient had inr completed at [facility] patients inr is 2.1 (patients inr range is 2.0-3.0) patient is currently taking 2.5mg Tues,Thurs and 5mg all other days patients last dose change was on 01/27/25 due to a low level of 1.9 (dose at that time was 2.5mg Tues,Thurs,Sun and 5mg all other days) patient has had no changes in medication and no missed doses and no change in diet Advised patient to continue on the same dose(s) and that they would only be contacted regarding dosage and follow up instructions after review with provider, if a change is needed. Written instructions given and patient verbalized understanding. Presently scheduled in 4 weeks (04/28/25) for follow up INR. documented in this encounterDetwiler [facility]05-02-2025 NoteHNO ID: [id number] Author: SEVERINO HEALY RN Service: ? Author Type: Registered Nurse Type: Progress Notes Filed: 04/01/2025 16:28 Note Text: patient had inr completed at [facility] patients inr is 2.1 (patients inr range is 2.0-3.0) patient is currently taking 2.5mg Tues,Thurs and 5mg all other days patients last dose change was on 01/27/25 due to a low level of 1.9 (dose at that time was 2.5mg Tues,Thurs,Sun and 5mg all other days) patient has had no changes in medication and no missed doses and no change in diet Advised patient to continue on the same dose(s) and that they would only be contacted regarding dosage and follow up instructions after review with provider, if a change is needed. Written instructions given and patient verbalized understanding. Presently scheduled in 4 weeks (04/28/25) for follow up INR.[facility]04-03-2025 NoteHNO ID: [id number] Author: HERBERT JAY APRN.CNS Service: ? Author Type: Nurse Specialist Type: Progress Notes Filed: 03/03/2025 16:43 Note Text: Continue with Coumadin dose unchanged and check INR in 4 weeksTr[facility]ull [facility]04-03-2025 History of Present illness Narrative* Herbert Jay APRN.CNS - 03/03/2025 12:38 PM EDT Continue with Coumadin dose unchanged and check INR in 4 weeks * Severino Healy RN - 03/03/2025 11:59 AM EDT patient had inr completed at [facility] patients inr is 2.8 (patients inr range is 2.0-3.0) patient is currently taking 2.5mg Tues,Thurs and 5mg all other days patients last dose change was on 01/27/25 due to a low level of 1.9 (dose at that time was 2.5mg Tues,Thurs,Sun and 5mg all other days) patient has had no changes in medication and no missed doses and no change in diet Advised patient to continue on the same dose(s) and that they would only be contacted regarding dosage and follow up instructions after review with provider, if a change is needed. Written instructions given and patient verbalized understanding. Presently scheduled in 4 weeks (04/01/25) for follow up INR. documented in this encounterDetwiler [facility]04-03-2025 NoteHNO ID: [id number] Author: GRASSBAUGH, SEVERINO, RN Service: ? Author Type: Registered Nurse Type: Progress Notes Filed: 03/03/2025 16:43 Note Text: patient had inr completed at [facility] patients inr is 2.8 (patients inr range is 2.0-3.0) patient is currently taking 2.5mg Tues,Thurs and 5mg all other days patients last dose change was on 01/27/25 due to a low level of 1.9 (dose at that time was 2.5mg Tues,Thurs,Sun and 5mg all other days) patient has had no changes in medication and no missed doses and no change in diet Advised patient to continue on the same dose(s) and that they would only be contacted regarding dosage and follow up instructions after review with provider, if a change is needed. Written instructions given and patient verbalized understanding. Presently scheduled in 4 weeks (04/01/25) for follow up INR.[facility]03-13-2025 NoteHNO ID: [id number] Author: HERBERT JAY APRN.CNS Service: ? Author Type: Nurse Specialist Type: Progress Notes Filed: 02/10/2025 16:22 Note Text: Continue with Coumadin dose unchanged check INR in 3 weeksTr[facility]ull [facility]03-13-2025 History of Present illness Narrative* Herbert Jay APRN.CNS - 02/10/2025 11:16 AM EDT Continue with Coumadin dose unchanged check INR in 3 weeks * Severino Healy, RN - 02/10/2025 10:28 AM EDT patient had inr completed at [facility] patients inr is 2.6 (patients inr range is 2.0-3.0) patient is currently taking 2.5mg Tues Thurs and 5mg all other days patients last dose change was on 01/27/25 due to a low level of 1.9 (dose at that time was 2.5mg Tues,Thurs,Sun and 5mg all other days) patient has had no changes in medication except for coumadin and no missed doses and no change in diet Advised patient to continue on the same dose(s) and that they would only be contacted regarding dosage and follow up instructions after review with provider, if a change is needed. Written instructions given and patient verbalized understanding. Presently scheduled in 3 weeks (03/03/25 due to the cc i s closed at that 2 week josie) for follow up INR.. documented in this encounterDetwiler [facility]03-13-2025 NoteHNO ID: [id number] Author: SEVERINO HEALY RN Service: ? Author Type: Registered Nurse Type: Progress Notes Filed: 02/10/2025 16:22 Note Text: patient had inr completed at [facility] patients inr is 2.6 (patients inr range is 2.0-3.0) patient is currently taking 2.5mg Tues Thurs and 5mg all other days patients last dose change was on 01/27/25 due to a low level of 1.9 (dose at that time was 2.5mg Tues,Thurs,Sun and 5mg all other days) patient has had no changes in medication except for coumadin and no missed doses and no change in diet Advised patient to continue on the same dose(s) and that they would only be contacted regarding dosage and follow up instructions after review with provider, if a change is needed. Written instructions given and patient verbalized understanding. 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 Author Type: Nurse Specialist Type: Progress Notes Filed: 01/27/2025 16:31 Note Text: Recommend Coumadin 2.5 mg Nunu and Thursday, 5 mg all other days and check INR in 2 weeksTr[facility]ull [facility]02-27-2025 History of Present illness Narrative* Herbert Jay APRN.CNS - 01/27/2025 11:23 AM EST Recommend Coumadin 2.5 mg Nunu and Thursday, 5 mg all other days and check INR in 2 weeks * Severino Healy RN - 01/27/2025 10:59 AM EST patient had inr completed at [facility] patients inr is 1.9 (patients inr range is 2.0-3.0) patient is currently taking 2.5mg Tues,Thurs,Sun and 5mg all other days patients last dose change was on 08/18/24 due to a low level of 1.6 (dose at that time was 5mg Mon,Wed,Fri and 2.5mg all other days) patient has had no changes in medication and no missed doses and no change in diet recommend: patient change coumadin to 2.5mg Tues,Thurs and 5mg all other days and recheck in 2 weeks patient has been scheduled for a 2 week follow up inr on 02/10/25 please review and advise on recommendation patient only needs called if provider does not agree with recommendation documented in this encounterDetwiler [facility]02-27-2025 NoteHNO ID: [id number] Author: SEVERINO HEALY RN Service: ? Author Type: Registered Nurse Type: Progress Notes Filed: 01/27/2025 16:31 Note Text: patient had inr completed at [facility] patients inr is 1.9 (patients inr range is 2.0-3.0) patient is currently taking 2.5mg Tues,Thurs,Sun and 5mg all other days patients last dose change was on 08/18/24 due to a low level of 1.6 (dose at that time was 5mg Mon,Wed,Fri and 2.5mg all other days) patient has had no changes in medication and no missed doses and no change in diet recommend: patient change coumadin to 2.5mg Tues,Thurs and 5mg all other days and recheck in 2 weeks patient has been scheduled for a 2 week follow up inr on 02/10/25 please review and advise on recommendation patient only needs called if provider does not agree with recommendation [facility]02-13-2025 NoteHNO ID: [id number] Author: KIRK MAIN MD Service: ? Author Type: Physician Type: Progress Notes Filed: 01/13/2025 11:09 Note Text: agreeTr[facility]ull [facility]02-13-2025 History of Present illness Narrative* Kirk Main MD - 01/13/2025 11:09 AM EST agree * Severino Healy RN - 01/13/2025 11:05 AM EST patient had inr completed at [facility] patients inr is 1.8 (patients inr range is 2.0-3.0) patient is currently taking 2.5mg Tues,Thurs,Sun and 5mg all other days patients last dose change was on 08/18/24 due to a low level of 1.6 (dose at that time was 5mg Mon,Wed,Fri and 2.5mg all other days) patient has had no changes in medication and patient did miss 3 doses and no change in diet Advised patient to continue on the same dose(s) and that they would only be contacted regarding dosage and follow up instructions after review with provider, if a change is needed. Written instructions given and patient verbalized understanding. Presently scheduled in 2 weeks (01/27/25) for follow up INR since level is slightly low but most likely due to the missed doses documented in this encounterDetwiler [facility]02-13-2025 NoteHNO ID: [id number] Author: SEVERINO HEALY RN Service: ? Author Type: Registered Nurse Type: Progress Notes Filed: 01/13/2025 11:09 Note Text: patient had inr completed at [facility] patients inr is 1.8 (patients inr range is 2.0-3.0) patient is currently taking 2.5mg Tues,Thurs,Sun and 5mg all other days patients last dose change was on 08/18/24 due to a low level of 1.6 (dose at that time was 5mg Mon,Wed,Fri and 2.5mg all other days) patient has had no changes in medication and patient did miss 3 doses and no change in diet Advised patient to continue on the same dose(s) and that they would only be contacted regarding dosage and follow up instructions after review with provider, if a change is needed. Written instructions given and patient verbalized understanding. Presently scheduled in 2 weeks (01/27/25) for follow up INR since level is slightly low but most likely due to the missed dosesTrumbull [facility] Hospital01-16-2025 NoteHNO ID: [id number] Author: HERBERT JAY APRN.CNS Service: ? Author Type: Nurse Specialist Type: Progress Notes Filed: 12/16/2024 15:03 Note Text: Continue with Coumadin dose unchanged and check INR in 4 weeksTrumbull [facility]01-16-2025 History of Present illness Narrative* Herbert Jay APRN.CNS - 12/16/2024 10:48 AM EST Continue with Coumadin dose unchanged and check INR in 4 weeks * Severino Healy RN - 12/16/2024 10:15 AM EST patient had inr completed at [facility] patients inr is 2.0 (patients inr range is 2.0-3.0) patient is currently taking 2.5mg Tues,Thurs,Sun and 5mg all other days patients last dose change was on 08/18/24 due to a low level of 1.6 (dose at that time was 5mg Mon,Wed, Fri and 2.5mg all other days) patient has had no changes in medication and no missed doses and no change in diet Advised patient to continue on the same dose(s) and that they would only be contacted regarding dosage and follow up instructions after review with provider, if a change is needed. Written instructions given and patient verbalized understanding. Presently scheduled in 4 weeks (01/13/25) for follow up INR. documented in this encounterDetwiler [facility]01-16-2025 NoteHNO ID: [id number] Author: SEVERINO HEALY RN Service: ? Author Type: Registered Nurse Type: Progress Notes Filed: 12/16/2024 15:03 Note Text: patient had inr completed at [facility] patients inr is 2.0 (patients inr range is 2.0-3.0) patient is currently taking 2.5mg Tues,Thurs,Sun and 5mg all other days patients last dose change was on 08/18/24 due to a low level of 1.6 (dose at that time was 5mg Mon,Wed, Fri and 2.5mg all other days) patient has had no changes in medication and no missed doses and no change in diet Advised patient to continue on the same dose(s) and that they would only be contacted regarding dosage and follow up instructions after review with provider, if a change is needed. Written instructions given and patient verbalized understanding. Presently scheduled in 4 weeks (01/13/25) for follow up INR.[facility]12-21-2024 Telephone encounter Note* Telephone Encounter - Victoriano Elizabeth - 11/20/2024 9:38 AM EST Lvm/mcm requesting pt to call back for PATRICIA per workstation order [facility]12-21-2024 Miscellaneous Notes* Telephone Encounter - Victoriano Elizabeth - 11/20/2024 9:38 AM EST Lvm/mcm requesting pt to call back for PATRICIA per workstation order [facility] NoteHNO ID: [id number] Author: HERBERT JAY APRN.CNS Service: ? Author Type: Nurse Specialist Type: Progress Notes Filed: 11/18/2024 16:05 Note Text: Continue Coumadin dose unchanged and [facility] History of Present illness Narrative* Herbert Jay APRN.CNS - 11/18/2024 1:43 PM EST Continue Coumadin dose unchanged and check INR in 4 weeks * Severino Healy RN - 11/18/2024 10:26 AM EST patient had inr completed at [facility] patients inr is 2.3 (patients inr range is 2.0-3.0) patient is currently taking 2.5mg Tues,Thurs,Sun and 5mg all other days patients last dose change was on 08/18/24 due to a low level of 1.6 (dose at that time was 5mg Mon,Wed,Fri and 2.5mg all other days) patient has had no changes in medication and no missed doses and no change in diet Advised patient to continue on the same dose(s) and that they would only be contacted regarding dosage and follow up instructions after review with provider, if a change is needed. Written instructions given and patient verbalized understanding. Presently scheduled in 4 weeks (12/16/24) for follow up INR. [facility] Telephone encounter Note * Telephone Encounter - Severino Healy RN - 11/18/2024 10:28 AM EST patients orders for coumadin clinic inr's has at this time. new order has been pended for approval if possible so that patient can continue to get inr's completed thru the coumadin clinic. coumadin clinic nurse only needs called if order can not be approved. [facility]12-19-2024 Miscellaneous Notes* Telephone Encounter - Severino Healy RN - 11/18/2024 10:28 AM EST patients orders for coumadin clinic inr's has at this time. new order has been pended for approval if possible so that patient can continue to get inr's completed thru the coumadin clinic. coumadin clinic nurse only needs called if order can not be approved. documented in [facility]Det[facility] NoteHNO ID: [id number] Author: SEVERINO HEALY RN Service: ? Author Type: Registered Nurse Type: Progress Notes Filed: 11/18/2024 16:05 Note Text: patient had inr completed at [facility] patients inr is 2.3 (patients inr range is 2.0-3.0) patient is currently taking 2.5mg Tues,Thurs,Sun and 5mg all other days patients last dose change was on 08/18/24 due to a low level of 1.6 (dose at that time was 5mg Mon,Wed,Fri and 2.5mg all other days) patient has had no changes in medication and no missed doses and no change in diet Advised patient to continue on the same dose(s) and that they would only be contacted regarding dosage and follow up instructions after review with provider, if a change is needed. Written instructions given and patient verbalized understanding. Presently scheduled in 4 weeks (12/16/24) for follow up INR.[facility]12-04-2024 Instructions* Patient Instructions* Roseann Elizabeth APRN.COMPENSATION DIRECTOR - 11/03/2024 9:14 AM EST Images from the original note were not included. Sleep Apnea What is sleep apnea? Sleep apnea is a serious sleep disorder that occurs when a person s breathing is interrupted duringsleep. People with untreated sleep apnea stop breathing repeatedly during their sleep, sometimes hundreds of times during the night. There are two types of sleep apnea: obstructive and central. Obstructive sleep apnea (PATRICIA) is the more common of the two. Obstructive sleep apnea occurs as repetitive episodes of complete or partial upper airway blockage during sleep. During an apnea episode, the diaphragm and chest muscles work harder as the pressure increases to open the airway. Breathing usually resumes with a loud gasp or body jerk. These episodes can interfere with sound sleep, reduce the flow of oxygen to vital organs, and cause heart rhythm irregularities. In central sleep apnea (CSA), the airway is not blocked but the brain fails to signal the muscles to breathe due to instability in the respiratory control center. Central apnea is named as such because it is related to the function of the central nervous system. Who gets sleep apnea? Sleep apnea occurs in about 25 percent of men and nearly 10 percent of women. Sleep apnea can affect people of all ages, including babies and children and particularly people over the age of forty and those who are overweight. Certain physical traits and clinical features are common in patients with obstructive sleep apnea. These include excessive weight, large neck, and structural abnormalities reducing the diameter of the upper airway, such as nasal obstruction, a low-hanging soft palate, enlarged tonsils, or a small jaw with an overbite. The figures below illustrate the upper airway in normal sleep: (A) person is lying on back, face up, and (B) in obstructive sleep apnea. The arrows indicate complete obstruction in the back of the throat. Normal (A) Sleep apnea (B): What causes sleep apnea? Obstructive sleep apnea is caused by a blockage of the airway, usually when the soft tissues in therear of the throat collapse during sleep. Central sleep apnea is usually observed in patients with central nervous system dysfunction, such as following a stroke or in patients with neuromuscular diseases like amyotrophic lateral sclerosis. It is also common in patients with heart failure and otherforms of cardiac and pulmonary disease. What are the symptoms of sleep apnea? Often the first signs of obstructive sleep apnea are recognized not by the patient, but by the bed partner. Many of those affected have no sleep complaints. The most common symptoms of PATRICIA include: Snoring Daytime sleepiness or fatigue Restlessness during sleep Sudden awakenings with a sensation of gasping or choking Dry mouth or sore throat upon awakening Intellectual impairment, such as trouble concentrating, forgetfulness, or irritability Night sweats Sexual dysfunction Headaches People with central sleep apnea more often report recurrent awakenings or insomnia, although they may also experience a choking or gasping sensation with sudden awakenings. Symptoms in children may not be as obvious and include: Poor school performance Sluggishness or sleepiness, often misinterpreted as laziness in the classroom Daytime mouth breathing and swallowing difficulty Inward movement of the ribcage when inhaling Unusual sleeping positions, such as sleeping on the hands and knees, or with the neck hyper-extended Excessive sweating at night Learning and behavioral disorders Bedwetting What are the effects of sleep apnea? If left untreated, sleep apnea can result in a number of health problems including hypertension, stroke, arrhythmias, cardiomyopathy (enlargement of the muscle tissue of the heart), congestive heart failure, diabetes, and heart attacks. In addition, untreated sleep apnea may be responsible for job i mpairment, work-related accidents, and motor vehicle crashes as well as academic underachievement. How is sleep apnea diagnosed? The diagnosis of sleep apnea is relatively straightforward, based on sleep history and an overnightsleep study called a polysomnogram. Polysomnogram is performed in a sleep laboratory under the direct supervision of a trained technologist. During the test, a variety of body functions, such as the e lectrical activity of the brain, eye movements, muscle activity, heart rate, breathing patterns, air flow, and blood oxygen levels are recorded at night during sleep. After the study is completed, the number of times breathing is impaired during sleep is tallied and the severity of sleep apnea is graded. In some cases, a multiple sleep latency test is performed on the day after the overnight testto measure the speed of falling asleep. In this test, patients are given several opportunities to fall asleep during the course of a day when they normally would be awake. If you have symptoms of sleep apnea, your doctor may ask you to have a sleep evaluation in a sleep disorder center. What are the treatments for sleep apnea? Conservative treatments: In mild cases of sleep apnea, conservative therapy may be all that is needed. Overweight persons can benefit from losing weight. Even a ten percent weight loss can reduce thenumber of apneic events for most patients. Individuals with apnea should avoid the use of alcohol and sleeping pills, which make the airway more likely to collapse during sleep and prolong the apneicperiods. In some patients with mild sleep apnea, breathing pauses occur only when they sleep on their backs. In such cases, using pillows and other devices that help them sleep in a side position maybe helpful. People with sinus problems or nasal congestion (such people are more likely to experience sleep apnea) should use nasal sprays or breathing strips to reduce snoring and improve airflow for more comfortable nighttime breathing. Avoiding sleep deprivation is important for all patients with sleep disorders. Mechanical therapy: Continuous Positive Airway Pressure (CPAP) is the preferred initial treatment for most people with obstructive sleep apnea. With CPAP, patients wear a mask over their nose and/or mouth. An air blower forces air through the nose and/or mouth. The air pressure is adjusted so that it is just enough to prevent the upper airway tissues from collapsing during sleep. The pressure is constant and continuous. CPAP prevents airway closure while in use, but apnea episodes return when CPAP is stopped or it is used improperly. Other styles and types of positive airway pressure devices are available for people who have difficulty tolerating CPAP. These include Bilevel Positive Airway P ressure (BiPAP), Auto Positive Airway Pressure (AutoPAP), Auto/Adaptive Servo- Ventilation (ASV), etc Oral appliances: For patients with mild/moderate sleep apnea, dental appliances or oral mandibular advancement devices that prevent the tongue from blocking the throat and/or advance the lower jaw forward can be made. These devices help keep the airway open during sleep. A sleep specialist and rubbing bed operator (with expertise in oral appliances for this purpose) should jointly determine if this treatment is best for you. Surgery: Surgical procedures may help people with sleep apnea. There are many types of surgical procedures, some of which are performed as outpatient procedures. Surgery is reserved for people who have excessive or malformed tissue obstructing airflow through the nose or throat, such as a deviated nasal septum, markedly enlarged tonsils, or small lower jaw with an overbite that causes the throat to be abnormally narrow. These procedures are typically performed after sleep apnea has failed to respond to conservative measures and a trial of positive airway pressure treatment. Types of surgery include: Somnoplasty: A minimally invasive procedure that uses radiofrequency energy to reduce the soft tissue in the upper airway. Uvulopalatopharyngoplasty (UPPP): A procedure that removes soft tissue on the back of the throat and palate, increasing the width of the airway at the throat opening. Maxillary/Mandibular advancement surgery: A surgical correction of certain facial abnormalities or throat obstructions that contribute to sleep apnea. This is an invasive procedure that is reserved for patients with severe sleep apnea with head-face abnormalities. Nasal surgery: Correction of nasal obstructions, such as a deviated septum. Hypoglossal nerve stimulator: FDA approved 2013. (Implant that sends a lead that goes to bottom of tongue to stimulate it forward out of the area of the back of the throat) Resources: The [facility] Guide to Sleep Disorders by Saida Bradford DO [employer] [address] [place] [address] [address] [facility] [id number] [email or web address] [place] [employer] [address] [place] [address], [address] [place] [address] [email or web address] documented in this encounterDet[facility]12-[facility]24 NoteHNO ID: [id number] Author: ROSEANN ELIZABETH APRN.KAYLIE Service: ? Author Type: Nurse Practitioner Type: Progress Notes Filed: 11/08/2024 05:47 Note Text: [facility] New Patient Evaluation PATIENT NAME: Yobani Reid DATE OF SERVICE: November 03, 2024 CONSULTING PROVIDER: Jose De Jesus Harrington [address] [facility] [id number] REASON FOR CONSULT: Jose De Jesus Harrington sends the patient for an opinion about PATRICIA. My findings and recommendations will be transmitted electronically via shared medical record to the consulting provider. HPI: Yobani Reid is a 79 year old female. Sleep-related history: she had a PSG right after being in rehab at [facility] in 2022 after a fall. Diagnosed with moderate PATRICIA. She can't stand anything on my face so she is afraid she won't tolerate a mask due to claustrophobia. She sleeps in a recliner at home. She was in a bed during the PSG. SLEEP-WAKE SCHEDULE Bedtime: MN She does not have a hard time falling asleep. Wake time: 5-6 AM, without an alarm. After falling asleep: she wakes up 1 time(s) per night, because of the need to urinate. On weekends, she maintains the same sleep schedule. Average total sleep time (in a 24 hour period): 5-6 hours. SLEEP-RELATED DETAILS Preferred sleep position: reclined Breathing disturbances and other behaviors during sleep: unknown -- she lives alone. 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 Has TMJ issues intermittently. GERD or aspiration: No Waking up with heart pounding or racing: No Anxiety or rumination: No She reports having an urge to move the legs. The urge to move the legs only occurs in the evening or nighttime. The urge to move the legs begins or worsens during periods of rest or inactivity (e.g. lying or sitting). The urge to move the legs is partially or totally relieved by movements such as walking or stretching, at least as long as the activity continues. The urge to move the legs occurs most nights per week and began years ago. Not very bothersome, just repositions and that resolves it. There is no history of iron deficiency or anemia. She has not been told that she has leg kicking during sleep. She denies any history of parasomnias. Daytime sleepiness is not a problem. She does not report sleep paralysis or sleep-related hallucinations or cataplexy WAKE-RELATED DETAILS She does not work. She does have difficulty with memory (names) but not concentration. She denies falling asleep or dozing off when driving. Doesn't drive long distances alone She does take naps. Frequency: most days, Duration: 30-90 min. Naps are refreshing. She does not drink caffeinated beverages. She has lost 50 pounds since 2 yrs. Patient Questionnaires Sleep Scores 10/04/2024 PHQ-9 Score 5 10/04/2024 PROMIS Global Health - (T-Scores - the mean of general population = 50. Five points is a clinically meaningful difference.) Physical T-Score 50.8 Mental T-Score 45.8 PAST TREATMENTS: None PRIOR SLEEP STUDIES: A Polysomnogram performed on 10/09/23 revealed an AHI of 15.6; supine index of 15.6; REM index of 21, PLM index of 0, PLM arousal index of 0, and the oxygen saturation was below 88% for 49 min of the study. 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 vaginitis/post-men. Postsurgical percutaneous transluminal coronary angioplasty status 12/15/2009 Snoring Type II or unspecified type diabetes mellitus without mention of complication, not stated as uncontrolled 02/21/2014 Unspecified essential hypertension Essential hypertension Unspecified hypothyroidism Hypothyroidism Unspecified urinary incontinence urge PAST SURGICAL HISTORY Procedure Laterality Date ADENOIDECTOMY PRIMARY Adenoidectomy COLONOSCOPY FLX DX W/COLLJ SPEC WHEN PFRMD 02/18/2006 Colonoscopy COLONOSCOPY FLX DX W/COLLJ SPEC WHEN PFRMD 06/14/2013 Colonoscopy COLONOSCOPY FLX DX W/COLLJ SPEC WHEN PFRMD 07/27/2019 Colonoscopy COLONOSCOPY SCREENING 12/16/2023 DILATION AND CURETTAGE DXAND/THER NONOBSTETRIC Dilation AND curettage EGD W/O BRSH SPEC VARICIES INJ 12/16/2023 ESOPHAGOGASTRODUODENOSCOPY TRANSORAL DIAGNOSTIC 06/14/2013 EGD FINGER SURGERY HX Right 10/2016 trig (more content not included)...[facility]12-04-2024 History of Present illness Narrative* Roseann Elizabeth, SANDEE.COMPENSATION DIRECTOR - 11/03/2024 9:00 AM EST Images from the original note were not included. [facility] New Patient Evaluation PATIENT NAME: Yobani Reid DATE OF SERVICE: November 03, 2024 CONSULTING PROVIDER: Jose De Jesus Harrington [address] [facility] [id number] REASON FOR CONSULT: Jose De Jesus Harrington sends the patient for an opinion about PATRICIA. My findings and recommendations will be transmitted electronically via shared medical record to the consulting provider. HPI: Yobani Reid is a 79 year old female. Sleep-related history: she had a PSG right after being in rehab at [facility] in 2022 after a fall. Diagnosed with moderate PATRICIA. She can't stand anything on my face so she is afraid she won't tolerate a mask due to claustrophobia. She sleeps in a recliner at home. She was in a bed during the PSG. SLEEP-WAKE SCHEDULE Bedtime: MN She does not have a hard time falling asleep. Wake time: 5-6 AM, without an alarm. After falling asleep: she wakes up 1 time(s) per night, because of the need to urinate. On weekends, she maintains the same sleep schedule. Average total sleep time (in a 24 hour period): 5-6 hours. SLEEP-RELATED DETAILS Preferred sleep position: reclined Breathing disturbances and other behaviors during sleep: unknown -- she lives alone. 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 Has TMJ issues intermittently. GERD or aspiration: No Waking up with heart pounding or racing: No Anxiety or rumination: No She reports having an urge to move the legs. The urge to move the legs only occurs in the evening or nighttime. The urge to move the legs begins or worsens during periods of rest or inactivity (e.g. lying or sitting). The urge to move the legs is partially or totally relieved by movements such as walking or stretching, at least as long as the activity continues. The urge to move the legs occurs most nights per week and began years ago. Not very bothersome, just repositions and that resolves it.There is no history of iron deficiency or anemia. She has not been told that she has leg kicking during sleep. She denies any history of parasomnias. Daytime sleepiness is not a problem. She does not report sleep paralysis or sleep-related hallucinations or cataplexy WAKE-RELATED DETAILS She does not work. She does have difficulty with memory (names) but not concentration. She denies falling asleep or dozing off when driving. Doesn't drive long distances alone She does take naps. Frequency: most days, Duration: 30-90 min. Naps are refreshing. She does not drink caffeinated beverages. She has lost 50 pounds since 2 yrs. Patient Questionnaires Sleep Scores 10/04/2024 PHQ-9 Score 5 10/04/2024 PROMIS Global Health - (T-Scores - the mean of general population = 50. Five points is a clinicallymeaningful difference.) Physical T-Score 50.8 Mental T-Score 45.8 PAST TREATMENTS: None PRIOR SLEEP STUDIES: A Polysomnogram performed on 10/09/23 revealed an AHI of 15.6; supine index of 15.6; REM index of 21, PLM index of 0, PLM arousal index of 0, and the oxygen saturation was below 88% for 49 min of the study. 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 vaginitis/post-men. Postsurgical percutaneous transluminal coronary angioplasty status 12/15/2009 Snoring Type II or unspecified type diabetes mellitus without mention of complication, not stated as uncontrolled 02/21/2014 Unspecified essential hypertension Essential hypertension Unspecified hypothyroidism Hypothyroidism Unspecified urinary incontinence urge PAST SURGICAL HISTORY Procedure Laterality Date ADENOIDECTOMY PRIMARY <AGE 14 Adenoidectomy COLONOSCOPY FLX DX W/COLLJ SPEC WHEN PFRMD 02/18/2006 Colonoscopy COLONOSCOPY FLX DX W/COLLJ SPEC WHEN PFRMD 06/14/2013 Colonoscopy COLONOSCOPY FLX DX W/COLLJ SPEC WHEN PFRMD 07/27/2019 Colonoscopy COLONOSCOPY SCREENING 12/16/2023 DILATION & CURETTAGE DX&/THER NONOBSTETRIC Dilation & curettage EGD W/O BRSH SPEC VARICIES INJ 12/16/2023 ESOPHAGOGASTRODUODENOSCOPY TRANSORAL DIAGNOSTIC 06/14/2013 EGD FINGER SURGERY HX Right 10/2016 trigger finger release- [facility] FOOT/TOES SURGERY PROC UNLISTED right foot HYSTEROSCOPY, DIAGNOSTIC (SEPARATE 07/18/2005 Dr Mckeon. Fredi LAPAROSCOPIC APPENDECTOMY 05/11/2014 LEFT HEART CATH,PERCUTANEOUS 01/17/2010 Cardiac cath, L heart NEUROPLASTY &/TRANSPOS MEDIAN NRV CARPAL TUNNE Carpal tunnel decomp, Rt wrist PULMONARY FUNCTION TEST 03/21/2005 SIGMOIDOSCOPY FLX DX W/COLLJ SPEC BR/WA IF PFRMD 1996 Sigmoidoscopy TONSILLECTOMY PRIMARY/SECONDARY <AGE 14 Tonsillectomy TOTAL ABDOMINAL HYSTERECT W/WO RMVL TUBE OVARY 08/2005 Dr Mike Rai/endometrial hyperplasia w/o dysplasia TRANSCATH STENT INIT VESSEL,PERCUT 10/2009 Transcath stent init vessel percut ACTIVE PROBLEM LIST Essential Hypertension Mixed Hyperlipidemia Postmenopausal Atrophic Vaginitis Acquired Hypothyroidism Unspecified Urinary Incontinence Chronic Rhinitis Coronary Atherosclerosis Postsurgical Percutaneous Transluminal Coronary Angioplasty Status Stage 3a Chronic Kidney Disease (Hcc) Circumscribed Scleroderma Class 3 Severe Obesity Due to Excess Calories Without Serious Comorbidity With Body Mass Index (Bmi) of 40.0 to 44.9 in Adult (Hcc) Plantar Fasciitis, Bilateral Type 2 Diabetes Mellitus With Stage 3a Chronic Kidney Disease, Without Long-Term Current Use of Insulin (Hcc) nursing home current use of 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 History of Pulmonary Embolus (Pe) Hypertensive Kidney Disease With Stage 3a Chronic Kidney Disease (Hcc) Vitamin D Deficiency Hypomagnesemia Pulmonary Embolism Without Acute Cor Pulmonale (Hcc) Allergies As of Date: 11/03/2024 Allergen Noted Reaction ADHESIVE TAPE (ROSINS) 11/11/2005 Other: See Comments ADHESIVE TAPE-SILICONES 12/29/2023 Rash AMOXICILLIN 11/11/2005 Rash AMPICILLIN 11/11/2005 Rash NIACIN 11/11/2005 Rash PENICILLINS 09/28/2009 Rash SULFA (SULFONAMIDE ANTIBIOTICS) 11/18/2005 Rash Fully Assessed 11/03/2024 CURRENT MEDICATIONS: isosorbide mononitrate ER (IMDUR) 30 mg 24 hr tablet Take 1 tablet by mouth once daily. atorvastatin (LIPITOR) 40 mg tablet Take 1 tablet by mouth daily at bedtime. For cholesterol. levothyroxine (SYNTHROID) 112 mcg tablet Take 1 tablet by mouth once daily. warfarin (COUMADIN) 5 mg tablet 5mg four days weekly and 2.5 mg all other days or as directed basedon INR magnesium oxide (MAG-OX) 400 mg (241.3 mg magnesium) tablet Take 2 tablets by mouth two times a day. amLODIPine (NORVASC) 2.5 mg tablet Take 1 tablet by mouth once daily. fosinopril sodium (MONOPRIL) 40 mg tablet Take 1 tablet by mouth once daily. atenolol (TENORMIN) 25 mg tablet Take 1 tablet by mouth once daily. Fenofibrate (LOFIBRA) 160 mg tablet Take 1 tablet by mouth once daily. omeprazole (PRILOSEC) 40 mg capsule Take 1 capsule by mouth once daily. nitroglycerin sublingual (NITROQUICK) 0.4 mg SL tablet Dissolve 1 tablet under the tongue as needed. DISSOLVE ON TONGUE FOR CHEST PAIN. IF NO PAIN RELIEF, CALL 911 Cholecalciferol, Vitamin D3, 50 mcg (2,000 unit) cap Take 1 capsule by mouth once daily. solifenacin (VESICARE) 5 mg tablet Take 5 mg by mouth once daily. hydrocortisone 2.5 % ointment Apply 1 application to affected area twice daily. warfarin (COUMADIN) 5 mg tablet Take 5 mg Mon, Wed and 7.5 mg all other days or as directed (Patient taking differently: Take 5 mg by mouth once daily. Take 5 mg daily x 6 days and 2.5mg the other day) blood sugar diagnostic (BLOOD GLUCOSE TEST) test strip Easy Max Test blood sugar(s) one time daily and as needed. Dx: Type 2 DM - Controlled E11.22 N18.3 Insulin: No Blood-Glucose Meter monitoring kit Glucose Meter of Choice - Kit - Dx: Other DM Code E11.22 N18.3 meclizine (ANTIVERT) 25 mg tab Take 1 tablet by mouth every 6 hours as needed (dizziness). (prescription given from ER) Lancets lancets Use as instructed--Check sugars up to once daily. DX: E11.9, Not insulin requiring aspirin(ECOTRIN LOW STRENGTH 81 MG TAB) Take one(1) tablet daily. oxymetazoline hcl(AFRIN SINUS NO DRIP 0.05 % NASAL MIST) as necessary Review of Systems Constitutional: Negative for fatigue and recent unintentional weight change. HENT: Positive for congestion (seasonal allergies). Cardiovascular: Negative for palpitations. Gastrointestinal: Negative for heartburn. Genitourinary: Positive for nocturia. Neurological: Negative for headaches. SOCIAL HISTORY: Social History Tobacco Use Smoking status: Former Current packs/day: 0.00 Average packs/day: 1 pack/day for 10.0 years (10.0 ttl pk-yrs) Types: Cigarettes Start date: 12/01/1959 Quit date: 12/01/1969 Years since quittin.9 Smokeless tobacco: Never Substance Use Topics Alcohol use: Yes Comment: Rarely Drug use: No FAMILY HISTORY: FAMILY HISTORY Problem Relation Age of Onset Stroke Mother at age 50 Hypertension Mother other (Eczema) Mother Heart Father mi at age 65 other (Psoriasis) Father Cancer Maternal Grandmother uterine Diabetes Maternal Grandmother Stroke Maternal Grandfather Stroke Paternal Grandmother Heart Paternal Grandfather Coronary Artery Disease Brother sudden , age 62 Heart Brother Slight issue There is a family history of: Sleep apnea. 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 Author Type: Registered Nurse Type: Progress Notes Filed: 10/20/2024 16:24 Note Text: [facility] History of Present illness Narrative* Severino Healy RN - 10/20/2024 4:24 PM EST pcp agrees with information * Severino Healy RN - 10/20/2024 10:14 AM EST patient had inr completed at [facility] patients inr is 2.2 (patients inr range is 2.0-3.0) patient is currently taking 2.5mg Tues Thurs Sun and 5mg all other days patients last dose change was on 08/18/24 due to a low level of 1.6 (dose at that time was 5mg Mon,Wed,Fri and 2.5mg all other days) patient has had no changes in medication and no missed doses and no change in diet Advised patient to continue on the same dose(s) and that they would only be contacted regarding dosage and follow up instructions after review with provider, if a change is needed. Written instructions given and patient verbalized understanding. Presently scheduled in 4 weeks (11/18/24) for follow u p INR. documented in this [facility]Det[facility]11-[facility]-2024 NoteHNO ID: [id number] Author: SEVERINO HEALY RN Service: ? Author Type: Registered Nurse Type: Progress Notes Filed: 10/20/2024 16:24 Note Text: patient had inr completed at [facility] patients inr is 2.2 (patients inr range is 2.0-3.0) patient is currently taking 2.5mg Tues Thurs Sun and 5mg all other days patients last dose change was on 08/18/24 due to a low level of 1.6 (dose at that time was 5mg Mon,Wed,Fri and 2.5mg all other days) patient has had no changes in medication and no missed doses and no change in diet Advised patient to continue on the same dose(s) and that they would only be contacted regarding dosage and follow up instructions after review with provider, if a change is needed. Written instructions given and patient verbalized understanding. Presently scheduled in 4 weeks (11/18/24) for follow up INR.[facility] Instructions* Patient Instructions* Jose De Jesus Harrington MD - 10/20/2024 9:32 AM EST - Take amlodipine as prescribed; refill should arrive today. - Take Coumadin 5 mg four days a week and 2.5 mg three days a week as directed. - Use Voltaren gel on your hands to reduce inflammation and stiffness. - Perform gentle hand exercises daily to improve flexibility and reduce stiffness. - Use a rice sock for warm therapy to help loosen up your hands. - Drink plenty of water to stay hydrated and support kidney function. - Maintain a balanced diet with more fruits, vegetables, and proteins; consult your neighbor for nutritional advice. - Continue attending stretch classes twice a week and aim to increase physical activity to five days a week. - Next follow-up appointment in six months. documented in this encounterDet[facility]11-[facility]-2024 NoteHNO ID: [id number] Author: JOSE DE JESUS HARRINGTON MD Service: ? Author Type: Physician Type: Progress Notes Filed: 10/23/2024 19:36 Note Text: This note was created using [employer]. Subjective Yobani Reid is a 79 year old female. Patient presents with: Follow Up SUBJECTIVE: Yobani Reid is a 79 year old year old lady here today for 6 month follow up appointment for review of medical conditions. Yobani Reid is a 79-year-old female with a history of arthritis, presenting for a 6-month follow-up. Yobani reports significant pain and stiffness in her hands, particularly in the left hand, which has been ongoing for a couple of weeks. She notes difficulty in making a fist in the morning due to pain and stiffness, which she attributes to a possible change in weather. The stiffness is more pronounced in the morning but persists throughout the day if she does not keep her hands moving. She also reports swelling in her hands, making it difficult to wear her ring in the morning. She mentions a history of trigger finger in her right hand, which was surgically treated a few years ago, and now suspects she has trigger finger in her left hand, particularly in the ring finger. She denies issues with other fingers. Yobani has been attending a stretch class twice a week and performs hand exercises but has not tried specific exercises for trigger finger. She has not used Voltaren gel or similar topical treatments. She has not tried glucosamine or collagen supplements for arthritis. Yobani also reports a recent episode of severe diarrhea lasting a week, which she attributes to food poisoning. This episode resulted in an 11-pound weight loss. She denies vomiting during this episode. She has since recovered but notes that most of the weight loss has been maintained. She has been working on weight loss for a couple of years, starting at 300 lbs and currently at 284 lbs. She has made dietary changes, such as reducing bread intake and being more conscious of calorie intake. She denies following any specific diet, such as the gummy bear diet, and expresses skepticism about such diets. Yobani is on multiple medications, including amlodipine, atenolol, Lipitor, fosinopril, Coumadin, and Synthroid. She reports a recent issue with her mail-order pharmacy, [facility], which delayed her amlodipine refill, causing her to run out of the medication last week. She has since contacted the pharmacy to set up automatic refills for all her medications. She also reports taking Coumadin 5 mg four days a week and 2.5 mg three days a week, with her next INR check scheduled for today. She mentions that her diet last week was inconsistent, which may affect her INR levels. Yobani has had difficulty accessing her [employer] retargeting account due to issues with password and two-factor authentication. She has not been able to update her information or use the [id number] feature. PAST MEDICAL HISTORY Diagnosis Date Acute appendicitis 05/11/14 Allergic rhinitis, cause unspecified Allergic rhinitis CKD (chronic kidney disease) 02/23/2010 Coronary atherosclerosis of unspecified type of vessel, eyak or graft 10/24/2009 Esophageal reflux Gastroesophageal reflux Impaired fasting glucose 11/13/2005 Mixed hyperlipidemia Hyperlipidemia Musculoskeletal disorder of the masseter 08/27/2010 hypertrophy, from chronic bruxism Other pulmonary embolism without acute cor pulmonale (HCC) 05/08/2018 PE following surgery [facility] Overactive bladder Peptic ulcer, unspecified site, unspecified as acute or chronic, without mention of hemorrhage, perforation, or obstruction Peptic ulcer disease Postmenopausal atrophic vaginitis Atroph. vaginitis/post-men. Postsurgical percutaneous transluminal coronary angioplasty status 12/15/2009 Snoring Type II or unspecified type diabetes mellitus without mention of complication, not stated as uncontrolled 02/21/2014 Unspecified essential hypertension Essential hypertension Unspecified hypothyroidism Hypothyroidism Unspecified urinary incontinence urge Current Outpatient Medications Medication Sig amLODIPine (NORVASC) 2.5 mg tablet Take 1 tablet by mouth once daily. fosinopril sodium (MONOPRIL) 40 mg tablet Take 1 tablet by mouth once daily. atenolol (TENORMIN) 25 mg tablet Take 1 tablet by mouth once daily. Fenofibrate (LOFIBRA) 160 mg tablet Take 1 tablet by mouth once daily. omeprazole (PRILOSEC) 40 mg capsule Take 1 capsule by mouth once daily. nitroglycerin sublingual (NITROQUICK) 0.4 mg SL tablet Dissolve 1 tablet under the tongue as needed. DISSOLVE ON TONGUE FOR CHEST PAIN. IF NO PAIN RELIEF, CALL 911 magnesium oxide (MAG-OX) 400 mg (241.3 mg magnesium) tablet Take 2 tablets by mouth two times a day. warfarin (COUMADIN) 5 mg tablet 5mg Mon,Wed and 7.5mg all other days or as directed (Patient taking differently: Take 5 mg by mouth once daily. 5mg daily x 6 d (more content not included)...[facility] History of Present illness Narrative* Jose De Jesus Harrington MD - 10/20/2024 8:42 AM EST This note was created using [employer]. Subjective Yobani Reid is a 79 year old female. Patient presents with: Follow Up SUBJECTIVE: Yobani Reid is a 79 year old year old lady here today for 6 month follow up appointment for review of medical conditions. Yobani Reid is a 79-year-old female with a history of arthritis, presenting for a 6-month follow-up. Yobani reports significant pain and stiffness in her hands, particularly in the left hand, which has been ongoing for a couple of weeks. She notes difficulty in making a fist in the morning due to pain and stiffness, which she attributes to a possible change in weather. The stiffness is more pronounced in the morning but persists throughout the day if she does not keep her hands moving. She also reports swelling in her hands, making it difficult to wear her ring in the morning. She mentions a history of trigger finger in her right hand, which was surgically treated a few years ago, and now suspects she has trigger finger in her left hand, particularly in the ring finger. She denies issues with other fingers. Yobani has been attending a stretch class twice a week and performs hand exercises but has not tried specific exercises for trigger finger. She has not used Voltaren gel or similar topical treatments. She has not tried glucosamine or collagen supplements for arthritis. Yobani also reports a recent episode of severe diarrhea lasting a week, which she attributes to food poisoning. This episode resulted in an 11-pound weight loss. She denies vomiting during this episode. She has since recovered but notes that most of the weight loss has been maintained. She has beenworking on weight loss for a couple of years, starting at 300 lbs and currently at 284 lbs. She hasmade dietary changes, such as reducing bread intake and being more conscious of calorie intake. Shedenies following any specific diet, such as the gummy bear diet, and expresses skepticism about such diets. Yobani is on multiple medications, including amlodipine, atenolol, Lipitor, fosinopril, Coumadin, and Synthroid. She reports a recent issue with her mail- order pharmacy, [facility], which delayed her amlodipine refill, causing her to run out of the medication last week. She has since contacted the pharmacy to set up automatic refills for all her medications. She also reports taking Coumadin 5 mg four days a week and 2.5 mg three days a week, with her next INR check scheduled for today. She mentions that her diet last week was inconsistent, which may affect her INR levels. Yobani has had difficulty accessing her [employer] retargeting account due to issues with password and two-factor authentication. She has not been able to update her information or use the [id number] feature. 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 vaginitis/post-men. Postsurgical percutaneous transluminal coronary angioplasty status 12/15/2009 Snoring Type II or unspecified type diabetes mellitus without mention of complication, not stated as uncontrolled 02/21/2014 Unspecified essential hypertension Essential hypertension Unspecified hypothyroidism Hypothyroidism Unspecified urinary incontinence urge Current Outpatient Medications Medication Sig amLODIPine (NORVASC) 2.5 mg tablet Take 1 tablet by mouth once daily. fosinopril sodium (MONOPRIL) 40 mg tablet Take 1 tablet by mouth once daily. atenolol (TENORMIN) 25 mg tablet Take 1 tablet by mouth once daily. Fenofibrate (LOFIBRA) 160 mg tablet Take 1 tablet by mouth once daily. omeprazole (PRILOSEC) 40 mg capsule Take 1 capsule by mouth once daily. nitroglycerin sublingual (NITROQUICK) 0.4 mg SL tablet Dissolve 1 tablet under the tongue as needed. DISSOLVE ON TONGUE FOR CHEST PAIN. IF NO PAIN RELIEF, CALL 911 magnesium oxide (MAG-OX) 400 mg (241.3 mg magnesium) tablet Take 2 tablets by mouth two times a day. warfarin (COUMADIN) 5 mg tablet 5mg Mon,Wed and 7.5mg all other days or as directed (Patient takingdifferently: Take 5 mg by mouth once daily. 5mg daily x 6 days and 2.5mg the other day or as directed) atorvastatin (LIPITOR) 40 mg tablet Take 1 tablet by mouth daily at bedtime. For cholesterol. isosorbide mononitrate ER (IMDUR) 30 mg 24 hr tablet Take 1 tablet by mouth once daily. levothyroxine (SYNTHROID) 112 mcg tablet Take 1 tablet by mouth once daily. Cholecalciferol, Vitamin D3, 50 mcg (2,000 unit) cap Take 1 capsule by mouth once daily. solifenacin (VESICARE) 5 mg tablet Take 5 mg by mouth once daily. hydrocortisone 2.5 % ointment Apply 1 application to affected area twice daily. warfarin (COUMADIN) 5 mg tablet Take 5 mg Mon, Wed and 7.5 mg all other days or as directed (Patient taking differently: Take 5 mg by mouth once daily. Take 5 mg daily x 6 days and 2.5mg the other day) blood sugar diagnostic (BLOOD GLUCOSE TEST) test strip Easy Max Test blood sugar(s) one time daily and as needed. Dx: Type 2 DM - Controlled E11.22 N18.3 Insulin: No Blood-Glucose Meter monitoring kit Glucose Meter of Choice - Kit - Dx: Other DM Code E11.22 N18.3 meclizine (ANTIVERT) 25 mg tab Take 1 tablet by mouth every 6 hours as needed (dizziness). (prescription given from ER) Lancets lancets Use as instructed--Check sugars up to once daily. DX: E11.9, Not insulin requiring aspirin(ECOTRIN LOW STRENGTH 81 MG TAB) Take one(1) tablet daily. oxymetazoline hcl(AFRIN SINUS NO DRIP 0.05 % NASAL MIST) as necessary No current facility-administered medications for this visit. Review of Systems Objective BP 122/60 Pulse (!) 58 Resp 16 Wt 113.7 kg (250 lb 10.6 oz) BMI 43.71 kg/m Physical Exam Constitutional: Appearance: Normal appearance. She is obese. HENT: Head: Normocephalic. Eyes: Conjunctiva/sclera: Conjunctivae normal. Cardiovascular: Rate and Rhythm: Normal rate and regular rhythm. Heart sounds: Normal heart sounds. Pulmonary: Effort: Pulmonary effort is normal. Breath sounds: Normal breath sounds. Musculoskeletal: Right lower leg: No edema. Left lower leg: No edema. Feet: Right foot: Protective Sensation: 10 sites tested. 10 sites sensed. Skin integrity: Skin integrity normal. Toenail Condition: Right toenails are normal. Left foot: Protective Sensation: 10 sites tested. 10 sites sensed. Skin integrity: Skin integrity normal. Toenail Condition: Left toenails are normal. Skin: General: Skin is warm and dry. Neurological: General: No focal deficit present. Mental Status: She is alert and oriented to person, place, and time. Psychiatric: Attention and Perception: Attention and perception normal. Mood and Affect: Mood and affect normal. Speech: Speech normal. Behavior: Behavior normal. Thought Content: Thought content normal. Judgment: Judgment normal. Latest Ref Rng 03/19/2024 10/04/2024 WBC 3.70 - 11.00 k/uL 6.12 6.42 RBC 3.90 - 5.20 m/uL 4.80 4.36 Hemoglobin 11.5 - 15.5 g/dL 13.1 12.1 Hematocrit 36.0 - 46.0 % 42.0 39.7 MCV 80.0 - 100.0 fL 87.5 91.1 MCH 26.0 - 34.0 pg 27.3 27.8 MCHC 30.5 - 36.0 g/dL 31.2 30.5 RDW-CV 11.5 - 15.0 % 15.7 (H) 14.3 Platelet Count 150 - 400 k/uL 326 286 MPV 9.0 - 12.7 fL 11.7 11.5 Neut% % 58.6 Abs Neut (ANC) 1.45 - 7.50 k/uL 3.77 Lymph% % 27.3 Abs Lymph 1.00 - 4.00 k/uL 1.75 [place]ñuel[place]% % 10.3 Abs [place] <0.87 k/uL 0.66 Eosin% % 3.0 Abs Eosin <0.46 k/uL 0.19 Baso% % 0.5 Abs Baso <0.11 k/uL 0.03 Immature Gran % % 0.3 IMMATURE GRANS (ABS) <0.10 k/uL <0.03 NRBC /100 WBC 0.0 Absolute nRBC <0.01 k/uL <0.01 <0.01 DTYPE Auto Protein, Total 6.3 - 8.0 g/dL 7.4 6.7 Albumin 3.9 - 4.9 g/dL 4.3 4.0 Calcium 8.5 - 10.2 mg/dL 10.5 (H) 10.1 Bilirubin, Total 0.2 - 1.3 mg/dL 0.8 0.7 Alkaline Phosphatase 34 - 123 U/L 57 51 AST 13 - 35 U/L 19 22 ALT 7 - 38 U/L 10 17 Glucose 74 - 99 mg/dL 110 (H) 114 (H) BUN 7 - 21 mg/dL 21 25 (H) Creatinine 0.58 - 0.96 mg/dL 1.43 (H) 1.51 (H) Sodium 136 - 144 mmol/L 141 139 Potassium 3.7 - 5.1 mmol/L 5.2 (H) 4.2 Chloride 98 - 107 mmol/L 105 105 CO2 22 - 30 mmol/L 27 22 Anion Gap 8 - 15 mmol/L 9 12 eGFR >=60 mL/min/1.73m 38 (L) 35 (L) Cholesterol, Total <200 mg/dL 185 Triglyceride <150 mg/dL 95 HDL Cholesterol >39 mg/dL 52 Non HDL Cholesterol <130 mg/dL 133 (H) Fasting Time hrs 13 VLDL Cholesterol <30 mg/dL 19 TC:HDL Ratio <5.10 3.56 LDL Cholesterol <100 mg/dL 114 (H) LDL:HDL Ratio <2.54 2.19 Creatinine, Ur Random (UCRR) 20.0 - 300.0 mg/dL 54.5 Albumin, Urine Random mg/L <12.0 Albumin/Creat Ratio <30 mg/g <22 Hemoglobin A1C 4.3 - 5.6 % 6.3 (H) Estimated Average Glucose mg/dL 134 PT Sec 9.7 - 13.0 sec 16.6 (H) PT INR 0.9 - 1.3 1.6 (H) Vitamin D 25 Hydroxy 31.0 - 80.0 ng/mL 32.3 TSH 0.270 - 4.200 mIU/L 2.560 1.850 Magnesium 1.7 - 2.3 mg/dL 2.1 Legend: (H) High (L) Low Hemoglobin A1C (%) Date Value 03/19/2024 6.3 09/01/2023 6.5 03/24/2023 6.3 12/17/2022 6.2 06/18/2022 6.2 12/18/2021 6.2 04/10/2021 6.2 09/01/2020 6.3 01/04/2020 6.1 06/22/2019 6.2 Assessment and Plan # Type 2 diabetes mellitus with stage 3a chronic kidney disease, without long- term current use of insulin (HCC) (E11.22) - Recent labs show BUN at 25 mg/dL and creatinine at 1.51 mg/dL, indicating dehydration; eGFR in the 30s range. - Encouraged increased fluid intake to improve kidney function. - Ordered A1c finger stick today to monitor glycemic control. - Continue current management and follow-up in 6 months with repeat labs. # Trigger ring finger of left hand (M65.342) # Morning joint stiffness of hand, left (M25.642) # Morning joint stiffness of right hand (M25.641) - Trigger finger noted in the left ring finger with associated morning stiffness in both hands. - Educated on hand exercises to improve flexibility and reduce stiffness, including gentle stretching and use of a stress ball. - Recommended use of Voltaren gel (diclofenac) topically to reduce inflammation. - Advised on dietary supplements such as glucosamine and collagen to support joint health. - If symptoms worsen, consider referral to orthopedics or hand specialist. # Class 3 severe obesity due to excess calories with body mass index (BMI) of 40.0 to 44.9 in adult, unspecified whether serious comorbidity present (HCC) (E66.813) - Current weight management includes dietary modifications and regular exercise. - Encouraged continuation of stretch classes twice a week and increase physical activity to 5 days a week, including treadmill use. - Discussed dietary improvements, emphasizing reduced carbohydrate intake and increased protein andvegetable consumption. - Scheduled follow-up in 6 months to monitor progress. # Acquired hypothyroidism (E03.9) - Recent TSH level at 1.850 mIU/L, indicating stable thyroid function. - Continue current Synthroid dosage. - Refill sent to [facility] # nursing home current use of 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 (Z79.01) - Current Coumadin dosage adjusted to 5 mg four days a week and 2.5 mg three days a week based on INR levels. - Refill sent to [facility] with instructions for dosage adjustments as needed. - Patient to maintain consistent intake of green leafy vegetables to stabilize INR. - Scheduled INR check today. # Hypomagnesemia (E83.42) - Refill for magnesium supplement sent to [facility]. - Monitor magnesium levels with next set of labs in 6 months. # Vitamin D deficiency (E55.9) - Continue current vitamin D supplementation. - Monitor levels with next set of labs in 6 months. # Hypercalcemia (E83.52) - Monitor calcium levels with next set of labs in 6 months. # Mixed hyperlipidemia (E78.2) - Continue current Lipitor therapy. - Refill sent to [facility]. - Monitor lipid levels with next set of labs in 6 months. # Encounter for therapeutic drug monitoring (Z51.81) - Ordered A1c finger stick today. - Scheduled INR check today. # Encounter for immunization (Z23) - Discussed COVID-19 vaccination; patient prefers to receive it at the pharmacy. - Documented declination of in-office vac cination. Jose De Jesus Harrington MD [facility] History of Present illness Narrative* Herbert Jay, DIRECT SUPPORT STAFF.GARDENING SUPERVISOR - 10/08/2024 10:20 AM EST SUBJECTIVE: Shingrix Vaccine(2 of 3) due on 04/09/2012 RSV Vaccine(1 - 1-dose 75+ series) Never done Diabetic Foot Exam due on 03/20/2024 Dilated Retinal Exam due on 06/19/2024 Covid-19 Vaccine() due on 08/01/2024 HbA1C due on 09/18/2024 HPI Yobani Reid is a 79 year old female. PMH significant for ACTIVE PROBLEM LIST Essential Hypertension Mixed Hyperlipidemia Postmenopausal Atrophic Vaginitis Acquired Hypothyroidism Unspecified Urinary Incontinence Chronic Rhinitis Coronary Atherosclerosis Postsurgical Percutaneous Transluminal Coronary Angioplasty Status Stage 3a Chronic Kidney Disease (Hcc) Circumscribed Scleroderma Class 3 Severe Obesity Due to Excess Calories Without Serious Comorbidity With Body Mass Index (Bmi) of 40.0 to 44.9 in Adult (Hcc) Plantar Fasciitis, Bilateral Type 2 Diabetes Mellitus With Stage 3a Chronic Kidney Disease, Without Long-Term Current Use of Insulin (Hcc) nursing home current use of 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 History of Pulmonary Embolus (Pe) Hypertensive Kidney Disease With Stage 3a Chronic Kidney Disease (Hcc) Vitamin D Deficiency Hypomagnesemia Pulmonary Embolism Without Acute Cor Pulmonale (Hcc) Presents today for diarrhea recheck. Office note 10/04/2024 excerpted:. She called the office earlier today and reported the following (excerpted): Patient calls for diarrhea. Nurse triage recommends appointment to be seen within 24 hours. Patientagreeable. Appointment scheduled. Care advice reviewed. Patient verbalizes understanding. Reason for Disposition [1] SEVERE diarrhea (e.g., 7 or more times / day more than normal) AND [2] age > 60 years Answer Assessment - Initial Assessment Questions 1. DIARRHEA SEVERITY: - SEVERE (SCALE 8-10; OR WORST POSSIBLE): Increase of 7 or more stools daily over normal; moderate increase in ostomy output; incontinence. 2. ONSET: the past week 3. STOOL DESCRIPTION: Mostly liquid. Once in a while a little more solid. 4. VOMITING: No vomiting 5. ABDOMEN PAIN: NA 6. ABDOMEN PAIN SEVERITY: NA 7. ORAL INTAKE:Drinking about 68 oz of fluids mostly water. 8. HYDRATION: Patient reports she is usually somewhat dehydrated. Voided last time this morning. 9. EXPOSURE: Patient was in [place] vacationing when diarrhea started. Doesn't recall eating anything that could have caused diarrhea and nothing spoiled. No recent foreign travel. Patient did try imodium but didn't seem to make a difference. 10. ANTIBIOTIC USE: No 11. OTHER SYMPTOMS: No fever, blood in stool possibly x 1 yesterday. Reports the toilet bowel waterlooked pink but none since. 12. : No Protocols used: [id number] She reports being on vacation in [place]. She noted that she started with loose stools last Friday. Has persisted and progressively worse/more frequent. Notes not eating much. Fluid intake, trying to push but not getting 64 oz/day in Duration: 6 to 7 days Onset: one week, gradual onset Sick contacts: no Fever:no Heartburn: Reflux: no Abdominal pain: no Nausea: no Vomiting: no Diarrhea: x 7 days Constipation: BRBPR: no Black tarry: no No recent hospitalization or antibiotic use is known. She has lost 11 pounds of weight in the last week. She noted pink-tinge on TP with BM a couple times but no blood. Presents today noting all symptoms have resolved. Wonders if she may have had dairy intolerance, was having milk on cereal while on vacation. Plans on getting vaccines at pharmacy. Review of Systems Constitutional: Negative. Respiratory: Negative. Gastrointestinal: Negative. Endocrine: Negative. Musculoskeletal: Positive for arthralgias, back pain and gait problem. Objective BP 126/75 Pulse (!) 56 Resp 16 Wt 112.8 kg (248 lb 10.9 oz) BMI 43.36 kg/m Physical Exam Vitals and nursing note reviewed. Constitutional: Appearance: Normal appearance. HENT: Head: Normocephalic and atraumatic. Eyes: Conjunctiva/sclera: Conjunctivae normal. Neck: Thyroid: No thyromegaly. Vascular: Normal carotid pulses. No JVD. Cardiovascular: Rate and Rhythm: Normal rate and regular rhythm. Pulses: Carotid pulses are 2+ on the right side and 2+ on the left side. Radial pulses are 2+ on the right side and 2+ on the left side. Heart sounds: Normal heart sounds. Pulmonary: Effort: Pulmonary effort is normal. Breath sounds: Normal breath sounds. Abdominal: General: Bowel sounds are normal. There is no distension. Palpations: Abdomen is soft. There is no mass. Tenderness: There is no abdominal tenderness. There is no guarding or rebound. Musculoskeletal: Lumbar back: Tenderness present. Right lower leg: No edema. Left lower leg: No edema. Skin: General: Skin is warm and dry. Neurological: General: No focal deficit present. Mental Status: She is alert and oriented to person, place, and time. ALLERGIES Allergen Reactions Adhesive Tape (Herminia* Other: See Comments Burning and redness where tape touches skin Adhesive Tape-Silic* Rash Severe burning, red rash following colonoscopy at site of monitor on back Amoxicillin Rash Ampicillin Rash Niacin Rash flushing Penicillins Rash Sulfa (Sulfonamide * Rash Medications amLODIPine (NORVASC) 2.5 mg tablet Take 1 tablet by mouth once daily. fosinopril sodium (MONOPRIL) 40 mg tablet Take 1 tablet by mouth once daily. atenolol (TENORMIN) 25 mg tablet Take 1 tablet by mouth once daily. Fenofibrate (LOFIBRA) 160 mg tablet Take 1 tablet by mouth once daily. omeprazole (PRILOSEC) 40 mg capsule Take 1 capsule by mouth once daily. nitroglycerin sublingual (NITROQUICK) 0.4 mg SL tablet Dissolve 1 tablet under the tongue as needed. DISSOLVE ON TONGUE FOR CHEST PAIN. IF NO PAIN RELIEF, CALL 911 magnesium oxide (MAG-OX) 400 mg (241.3 mg magnesium) tablet Take 2 tablets by mouth two times a day. warfarin (COUMADIN) 5 mg tablet 5mg Mon,Wed and 7.5mg all other days or as directed (Patient takingdifferently: Take 5 mg by mouth once daily. 5mg daily x 6 days and 2.5mg the other day or as directed) atorvastatin (LIPITOR) 40 mg tablet Take 1 tablet by mouth daily at bedtime. For cholesterol. isosorbide mononitrate ER (IMDUR) 30 mg 24 hr tablet Take 1 tablet by mouth once daily. levothyroxine (SYNTHROID) 112 mcg tablet Take 1 tablet by mouth once daily. Cholecalciferol, Vitamin D3, 50 mcg (2,000 unit) cap Take 1 capsule by mouth once daily. solifenacin (VESICARE) 5 mg tablet Take 5 mg by mouth once daily. hydrocortisone 2.5 % ointment Apply 1 application to affected area twice daily. warfarin (COUMADIN) 5 mg tablet Take 5 mg Mon, Wed and 7.5 mg all other days or as directed (Patient taking differently: Take 5 mg by mouth once daily. Take 5 mg daily x 6 days and 2.5mg the other day) blood sugar diagnostic (BLOOD GLUCOSE TEST) test strip Easy Max Test blood sugar(s) one time daily and as needed. Dx: Type 2 DM - Controlled E11.22 N18.3 Insulin: No Blood-Glucose Meter monitoring kit Glucose Meter of Choice - Kit - Dx: Other DM Code E11.22 N18.3 meclizine (ANTIVERT) 25 mg tab Take 1 tablet by mouth every 6 hours as needed (dizziness). (prescription given from ER) Lancets lancets Use as instructed--Check sugars up to once daily. DX: E11.9, Not insulin requiring aspirin(ECOTRIN LOW STRENGTH 81 MG TAB) Take one(1) tablet daily. oxymetazoline hcl(AFRIN SINUS NO DRIP 0.05 % NASAL MIST) as necessary PAST MEDICAL HISTORY Diagnosis Date Acute appendicitis 05/11/14 Allergic rhinitis, cause unspecified Allergic rhinitis CKD (chronic kidney disease) 02/23/2010 Coronary atherosclerosis of unspecified type of vessel, eyak or graft 10/24/2009 Esophageal reflux Gastroesophageal reflux Impaired fasting glucose 11/13/2005 Mixed hyperlipidemia Hyperlipidemia Musculoskeletal disorder of the masseter 08/27/2010 hypertrophy, from chronic bruxism Other pulmonary embolism without acute cor pulmonale (HCC) 05/08/2018 PE following surgery [facility] Overactive bladder Peptic ulcer, unspecified site, unspecified as acute or chronic, without mention of hemorrhage, perforation, or obstruction Peptic ulcer disease Postmenopausal atrophic vaginitis Atroph. vaginitis/post-men. Postsurgical percutaneous transluminal coronary angioplasty status 12/15/2009 Snoring Type II or unspecified type diabetes mellitus without mention of complication, not stated as uncontrolled 02/21/2014 Unspecified essential hypertension Essential hypertension Unspecified hypothyroidism Hypothyroidism Unspecified urinary incontinence urge Social History Tobacco Use Smoking status: Former Current packs/day: 0.00 Average packs/day: 1 pack/day for 10.0 years (10.0 ttl pk-yrs) Types: Cigarettes Start date: 12/01/1959 Quit date: 12/01/1969 Years since quittin.8 Smokeless tobacco: Never Substance Use Topics Alcohol use: Yes Comment: Rarely Drug use: No INR Date Value Ref Range Status 10/04/2024 1.6 (H) 0.9 - 1.3 Final Comment: Vitamin K Antagonist (VKA) Therapeutic Range: INR 2 to 3 (Target INR of 2.5) Note: For patients treated with VKA drugs, such as warfarin, the [employer] [place] [employer] 2012 Guideline recommends a therapeutic INR range of 2 to 3 (target INR of 2.5). This recommendation includes high-risk patients with antiphospholipid syndrome with previous arterial or venous thromboembolism, current-generation mechanical or bioprosthetic aortic heart valve replacement. Note: Patients with mechanical aortic valve replacement and additional risk factors for thromboembolic events (atrial fibrillation, previous thromboembolism, LV dysfunction, hypercoagulable conditions) or an older generation mechanical AVR (i.e., ball in-Cage) or any mechanical MVR should have a INR therapeutic range of 2.5 to 3.5 (target INR of 3). Bernard RICHARD, et al. Chest 2012, 141:7S-47S Roberto RA, et al. [facility] 2017, 70: 252-289 Hemoglobin A1C (%) Date Value 03/19/2024 6.3 12/18/2021 6.2 ASSESSMENT/PLAN: 1. 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 History of pulmonary embolus (PE) - ICD9: V12.55, ICD10: Z86.711 subtherapeutic, continue unchanged for now, recheck in 2 weeks - PROTHROMBIN TIME - check today 4. Type 2 diabetes mellitus with stage 3a chronic kidney disease, without long- term current use of insulin (HCC) - ICD9: 250.40, 585.3, ICD10: E11.22, N18.31 - HEMOGLOBIN A1C - to check before next visit, will see if can add on to previous labs Herbert Jay APRN.CNS Medical Decision Making: Problems: Low: Acute, uncomplicated illness or injury Data: Unique test result(s) reviewed: 3+ Unique test(s) ordered: 1 Medical Decision Making Level: 3 - Low documented in [facility]24 NoteHNO ID: [id number] Author: HERBERT JAY APRN.CNS Service: ? Author Type: Nurse Specialist Type: Progress Notes Filed: 10/08/2024 10:58 Note Text: SUBJECTIVE: Shingrix Vaccine(2 of 3) due on 04/09/2012 RSV Vaccine(1 - 1-dose 75+ series) Never done Diabetic Foot Exam due on 03/20/2024 Dilated Retinal Exam due on 06/19/2024 Covid-19 Vaccine( season) due on 08/01/2024 HbA1C due on 09/18/2024 JACKSON Reid is a 79 year old female. 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 Office note 10/04/2024 excerpted:. She called the office earlier today and reported the following (excerpted): Patient calls for diarrhea. Nurse triage recommends appointment to be seen within 24 hours. Patient agreeable. Appointment scheduled. Care advice reviewed. Patient verbalizes understanding. Reason for Disposition [1] SEVERE diarrhea (e.g., 7 or more times / day more than normal) AND [2] age > 60 years Answer Assessment - Initial Assessment Questions 1. DIARRHEA SEVERITY: - SEVERE (SCALE 8-10; OR WORST POSSIBLE): Increase of 7 or more stools daily over normal; moderate increase in ostomy output; incontinence. 2. ONSET: the past week 3. STOOL DESCRIPTION: Mostly liquid. Once in a while a little more solid. 4. VOMITING: No vomiting 5. ABDOMEN PAIN: NA 6. ABDOMEN PAIN SEVERITY: NA 7. ORAL INTAKE:Drinking about 68 oz of fluids mostly water. 8. HYDRATION: Patient reports she is usually somewhat dehydrated. Voided last time this morning. 9. EXPOSURE: Patient was in [place] vacationing when diarrhea started. Doesn't recall eating anything that could have caused diarrhea and nothing spoiled. No recent foreign travel. Patient did try imodium but didn't seem to make a difference. 10. ANTIBIOTIC USE: No 11. OTHER SYMPTOMS: No fever, blood in stool possibly x 1 yesterday. Reports the toilet bowel water looked pink but none since. 12. : No Protocols used: [id number] She reports being on vacation in [place]. She noted that she started with loose stools last Friday. Has persisted and progressively worse/more frequent. Notes not eating much. Fluid intake, trying to push but not getting 64 oz/day in Duration: 6 to 7 days Onset: one week, gradual onset Sick contacts: no Fever:no Heartburn: Reflux: no Abdominal pain: no Nausea: no Vomiting: no Diarrhea: x 7 days Constipation: BRBPR: no Black tarry: no No recent hospitalization or antibiotic use is known. She has lost 11 pounds of weight in the last week. She noted pink-tinge on TP with BM a couple times but no blood. Presents today noting all symptoms have resolved. Wonders if she may have had dairy intolerance, was having milk on cereal while on vacation. Plans on getting vaccines at pharmacy. Review of Systems Constitutional: Negative. Respiratory: Negative. Gastrointestinal: Negative. Endocrine: Negative. Musculoskeletal: Positive for arthralgias, back pain and gait problem. Objective BP 126/75 Pulse (!) 56 Resp 16 Wt 112.8 kg (248 lb 10.9 oz) BMI 43.36 kg/m? Physical Exam Vitals and nursing note reviewed. Constitutional: Appearance: Normal appearance. HENT: Head: Normocephalic and atraumatic. Eyes: Conjunctiva/sclera: Conjunctivae normal. Neck: Thyroid: No thyromegaly. Vascular: Normal carotid pulses. No JVD. Cardiovascular: Rate and Rhythm: Normal rate and regular rhythm. Pulses: Carotid pulses are 2+ on the right side and 2+ on the left side. Radial pulses are 2+ on the right side and 2+ on the left side. Heart sounds: Normal heart sounds. Pulmonary: Effort: Pulmonary effort is normal. Breath sounds: Normal breath sounds. Abdominal: General: Bowel sounds are normal. There is no distension. Palpations: Abdomen is soft. There is no mass. Tenderness: There is no abdominal tenderness. There is no guarding or rebound. Musculoskeletal: Lumbar back: Tenderness present. Right lower leg: No edema. Left lower leg: No edema. Skin: General: Skin is warm and dry. Neurological: (more content not included)...[facility]-07[facility] Telephone encounter Note* Telephone Encounter - Desiree Dailey RN - 10/07/2024 9:52 AM EST Patient given provider's messages below. Pt verbalizes understanding of coumadin and INR orders. Patient states her diarrhea has resolved and she will not complete the stool tests then. Desiree Dailey RN [facility]11-07-2024 Miscellaneous Notes* Telephone Encounter - Desiree Dailey RN - 10/07/2024 9:52 AM EST Patient given provider's messages below. Pt verbalizes understanding of coumadin and INR orders. Patient states her diarrhea has resolved and she will not complete the stool tests then. Desiree Dailey RN * Telephone Encounter - Britney Deleon RN - 10/07/2024 9:34 AM EST Called and left a voicemail for the Patient to call back and ask for a nurse to receive the providers message.Updated Anticoag tracker. Britney Deleon, RN * Telephone Encounter - Jose De Jesus Harrington MD - 10/06/2024 7:14 PM EST Noted INR was down to 1.6 in August and then was fine through August on same dose coumadin. Stay on same dose and recheck in 2 weeks. If diarrhea has resolved, then does not need to do stool tests. * Telephone Encounter - Lexy Rodrigez LPN - 10/06/2024 10:17 AM EST Spoke with pt and information listed below given. Pt verbalizes understanding. Pt taking coumadin 5 mg , and 2.5 mg all other days. DENIES: missed doses, bleeding, bruising, change in appetite, taking ATBs. Pt reports today 10-06-24 no diarrhea today. Had a solid BM. Pt was not given any stool containers when she was here to have lab work done. Pt reports she will stop in and belt picker containers. Lexy Rodrigez LPN * Telephone Encounter - Lexy Rodrigez LPN - 10/06/2024 10:07 AM EST ----- Message from Herbert Chavez APRN.GARDENING SUPERVISOR sent at 10/05/2024 3:45 PM EST ----- Lab work showed some relative dehydration otherwise no concerning findings so far recommend pushingfluids as discussed at her visit. Complete stool cultures when she is able to do so. INR subtherapeutic, check current dosing a. Nd if any missed doses. documented in [facility] Telephone encounter Note * Telephone Encounter - Britney Deleon RN - 10/07/2024 9:34 AM EST Called and left a voicemail for the Patient to call back and ask for a nurse to receive the providers message.Updated Anticoag tracker. Britney Deleon RN [facility]11-06-[facility] Telephone encounter Note* Telephone Encounter - Jose De Jesus Harrington MD - 10/06/2024 7:14 PM EST Noted INR was down to 1.6 in August and then was fine through August on same dose coumadin. Stay on same dose and recheck in 2 weeks. If diarrhea has resolved, then does not need to do stool tests. [facility] Telephone encounter Note* Telephone Encounter - Lexy Rodrigez LPN - 10/06/2024 10:17 AM EST Spoke with pt and information listed below given. Pt verbalizes understanding. Pt taking coumadin 5 mg , and 2.5 mg all other days. DENIES: missed doses, bleeding, bruising, change in appetite, taking ATBs. Pt reports today 10-06-24 no diarrhea today. Had a solid BM. Pt was not given any stool containers when she was here to have lab work done. Pt reports she will stop in and belt picker containers. Lexy Rodrigez LPN [facility]11-06-2024 Telephone encounter Note* Telephone Encounter - Lexy Rodrigez LPN - 10/06/2024 10:07 AM EST ----- Message from Herbert Chavez APRN.GARDENING SUPERVISOR sent at 10/05/2024 3:45 PM EST ----- Lab work showed some relative dehydration otherwise no concerning findings so far recommend pushingfluids as discussed at her visit. Complete stool cultures when she is able to do so. INR subtherapeutic, check current dosing a. Nd if any missed doses. [facility]-04[facility] Instructions* Patient Instructions* Herbert Jay APRN.KINJAL - 10/04/2024 2:03 PM EST Take Imodium as needed for diarrhea Drink sufficient fluids, aim for at least 64 ounces per day Drink at least 8 ounces of Pedialyte, broth or Gatorade daily until feeling improved. Eat as tolerated, try smaller meals while feeling ill. Try eating saltine crackers, broth soups, starches/cereals (potatoes, noodles, rice, wheat, and oat) with some salt are excellent foods to consider. In addition, crackers, bananas, yogurt, soups, andboiled vegetables are also good choices Let us know if not feeling improved. Go to ER if unable to keep fluids or food down for 24 hours or greater or having severe symptoms documented in this [facility]11-[facility] History of Present illness Narrative* Herbert Jay APRN.GARDENING SUPERVISOR - 10/04/2024 1:40 PM EST SUBJECTIVE: Shingrix Vaccine(2 of 3) due on 04/09/2012 RSV Vaccine(1 - 1-dose 75+ series) Never done Diabetic Foot Exam due on 03/20/2024 Dilated Retinal Exam due on 06/19/2024 Influenza Vaccine(1) due on 08/01/2024 Covid-19 Vaccine(2023- season) due on 08/01/2024 HbA1C due on 09/18/2024 HPI Yobani Reid is a 79 year old female. 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 She called the office earlier today and reported the following (excerpted): Patient calls for diarrhea. Nurse triage recommends appointment to be seen within 24 hours. Patientagreeable. Appointment scheduled. Care advice reviewed. Patient verbalizes understanding. Reason for Disposition [1] SEVERE diarrhea (e.g., 7 or more times / day more than normal) AND [2] age > 60 years Answer Assessment - Initial Assessment Questions 1. DIARRHEA SEVERITY: - SEVERE (SCALE 8-10; OR WORST POSSIBLE): Increase of 7 or more stools daily over normal; moderate increase in ostomy output; incontinence. 2. ONSET: the past week 3. STOOL DESCRIPTION: Mostly liquid. Once in a while a little more solid. 4. VOMITING: No vomiting 5. ABDOMEN PAIN: NA 6. ABDOMEN PAIN SEVERITY: NA 7. ORAL INTAKE:Drinking about 68 oz of fluids mostly water. 8. HYDRATION: Patient reports she is usually somewhat dehydrated. Voided last time this morning. 9. EXPOSURE: Patient was in [place] vacationing when diarrhea started. Doesn't recall eating anything that could have caused diarrhea and nothing spoiled. No recent foreign travel. Patient did try imodium but didn't seem to make a difference. 10. ANTIBIOTIC USE: No 11. OTHER SYMPTOMS: No fever, blood in stool possibly x 1 yesterday. Reports the toilet bowel waterlooked pink but none since. 12. : No Protocols used: [id number] She reports being on vacation in [place]. She noted that she started with loose stools last Friday. Has persisted and progressively worse/more frequent. Notes not eating much. Fluid intake, trying to push but not getting 64 oz/day in Duration: 6 to 7 days Onset: one week, gradual onset Sick contacts: no Fever:no Heartburn: Reflux: no Abdominal pain: no Nausea: no Vomiting: no Diarrhea: x 7 days Constipation: BRBPR: no Black tarry: no No recent hospitalization or antibiotic use is known. She has lost 11 pounds of weight in the last week. She noted pink-tinge on TP with BM a couple times but no blood. Review of Systems Constitutional: Negative. Respiratory: Negative. Endocrine: Negative. Musculoskeletal: Positive for arthralgias, back pain and gait problem. Objective BP 107/58 Pulse (!) 53 Temp 36.4 C (97.5 F) Resp 16 Wt 110 kg (242 lb 8.1 oz) BMI 42.28 kg/m Physical Exam Vitals and nursing note reviewed. Constitutional: Appearance: Normal appearance. HENT: Head: Normocephalic and atraumatic. Eyes: Conjunctiva/sclera: Conjunctivae normal. Neck: Thyroid: No thyromegaly. Vascular: Normal carotid pulses. No JVD. Cardiovascular: Rate and Rhythm: Normal rate and regular rhythm. Pulses: Carotid pulses are 2+ on the right side and 2+ on the left side. Radial pulses are 2+ on the right side and 2+ on the left side. Heart sounds: Normal heart sounds. Pulmonary: Effort: Pulmonary effort is normal. Breath sounds: Normal breath sounds. Abdominal: General: Bowel sounds are normal. There is no distension. Palpations: Abdomen is soft. There is no mass. Tenderness: There is no abdominal tenderness. There is no guarding or rebound. Musculoskeletal: Lumbar back: Tenderness present. Right lower leg: No edema. Left lower leg: No edema. Skin: General: Skin is warm and dry. Neurological: General: No focal deficit present. Mental Status: She is alert and oriented to person, place, and time. ALLERGIES Allergen Reactions Adhesive Tape (Herminia* Other: See Comments Burning and redness where tape touches skin Adhesive Tape-Silic* Rash Severe burning, red rash following colonoscopy at site of monitor on back Amoxicillin Rash Ampicillin Rash Niacin Rash flushing Penicillins Rash Sulfa (Sulfonamide * Rash Medications amLODIPine (NORVASC) 2.5 mg tablet Take 1 tablet by mouth once daily. fosinopril sodium (MONOPRIL) 40 mg tablet Take 1 tablet by mouth once daily. atenolol (TENORMIN) 25 mg tablet Take 1 tablet by mouth once daily. Fenofibrate (LOFIBRA) 160 mg tablet Take 1 tablet by mouth once daily. omeprazole (PRILOSEC) 40 mg capsule Take 1 capsule by mouth once daily. nitroglycerin sublingual (NITROQUICK) 0.4 mg SL tablet Dissolve 1 tablet under the tongue as needed. DISSOLVE ON TONGUE FOR CHEST PAIN. IF NO PAIN RELIEF, CALL 911 magnesium oxide (MAG-OX) 400 mg (241.3 mg magnesium) tablet Take 2 tablets by mouth two times a day. warfarin (COUMADIN) 5 mg tablet 5mg Mon,Wed and 7.5mg all other days or as directed (Patient takingdifferently: Take 5 mg by mouth once daily. 5mg daily x 6 days and 2.5mg the other day or as directed) atorvastatin (LIPITOR) 40 mg tablet Take 1 tablet by mouth daily at bedtime. For cholesterol. isosorbide mononitrate ER (IMDUR) 30 mg 24 hr tablet Take 1 tablet by mouth once daily. levothyroxine (SYNTHROID) 112 mcg tablet Take 1 tablet by mouth once daily. Cholecalciferol, Vitamin D3, 50 mcg (2,000 unit) cap Take 1 capsule by mouth once daily. solifenacin (VESICARE) 5 mg tablet Take 5 mg by mouth once daily. hydrocortisone 2.5 % ointment Apply 1 application to affected area twice daily. warfarin (COUMADIN) 5 mg tablet Take 5 mg Mon, Wed and 7.5 mg all other days or as directed (Patient taking differently: Take 5 mg by mouth once daily. Take 5 mg daily x 6 days and 2.5mg the other day) blood sugar diagnostic (BLOOD GLUCOSE TEST) test strip Easy Max Test blood sugar(s) one time daily and as needed. Dx: Type 2 DM - Controlled E11.22 N18.3 Insulin: No Blood-Glucose Meter monitoring kit Glucose Meter of Choice - Kit - Dx: Other DM Code E11.22 N18.3 meclizine (ANTIVERT) 25 mg tab Take 1 tablet by mouth every 6 hours as needed (dizziness). (prescription given from ER) Lancets lancets Use as instructed--Check sugars up to once daily. DX: E11.9, Not insulin requiring aspirin(ECOTRIN LOW STRENGTH 81 MG TAB) Take one(1) tablet daily. oxymetazoline hcl(AFRIN SINUS NO DRIP 0.05 % NASAL MIST) as necessary diphenoxylate-atropine (LOMOTIL) 2.5-0.025 mg per tablet Take 1 tablet by mouth four times a day asneeded for diarrhea for up to 14 days. 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 vaginitis/post-men. Postsurgical percutaneous transluminal coronary angioplasty status 12/15/2009 Snoring Type II or unspecified type diabetes mellitus without mention of complication, not stated as uncontrolled 02/21/2014 Unspecified essential hypertension Essential hypertension Unspecified hypothyroidism Hypothyroidism Unspecified urinary incontinence urge Social History Tobacco Use Smoking status: Former Current packs/day: 0.00 Average packs/day: 1 pack/day for 10.0 years (10.0 ttl pk-yrs) Types: Cigarettes Start date: 12/01/1959 Quit date: 12/01/1969 Years since quittin.8 Smokeless tobacco: Never Substance Use Topics Alcohol use: Yes Comment: Rarely Drug use: No INR (POCT) Date Value Ref Range Status 09/16/2024 2.1 (H) 0.8 - 1.2 Final Hemoglobin A1C (%) Date Value 03/19/2024 6.3 12/18/2021 6.2 ASSESSMENT/PLAN: 1. Diarrhea, unspecified type - ICD9: 787.91, ICD10: R19.7 (primary diagnosis) Diarrhea of uncertain cause, sounds like may be infectious. Will check labs today. Continue with Imodium as needed. Push fluids. [facility] diet. - COMPLETE BLOOD COUNT AND DIFFERENTIAL - C. 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 Eat as tolerated, try smaller meals while feeling ill. Try eating saltine crackers, broth soups, starches/cereals (potatoes, noodles, rice, wheat, and oat) with some salt are excellent foods to consider. In addition, crackers, bananas, yogurt, soups, andboiled vegetables are also good choices Let us know if not feeling improved. Go to ER if unable to keep fluids or food down for 24 hours or greater or having severe symptoms labs today recheck Friday Herbert Jay APRN.CNS Medical Decision Making: Problems: Low: Acute, uncomplicated illness or injury Data: Unique test(s) ordered: 3+ Risk: Moderate: Drug management Medical Decision Making Level: 4 - Moderate documented in this encounter[facility] NoteHNO ID: [id number] Author: HERBERT JAY APRN.GARDENING SUPERVISOR Service: ? Author Type: Nurse Specialist Type: Progress Notes Filed: 10/04/2024 14:21 Note Text: SUBJECTIVE: Shingrix Vaccine(2 of 3) due on 04/09/2012 RSV Vaccine(1 - 1-dose 75+ series) Never done Diabetic Foot Exam due on 03/20/2024 Dilated Retinal Exam due on 06/19/2024 Influenza Vaccine(1) due on 08/01/2024 Covid-19 Vaccine( season) due on 08/01/2024 HbA1C due on 09/18/2024 JACKSON Yobani Reid is a 79 year old female. PMH significant for ACTIVE PROBLEM LIST Essential Hypertension Mixed Hyperlipidemia Postmenopausal Atrophic Vaginitis Acquired Hypothyroidism Unspecified Urinary Incontinence Chronic Rhinitis Coronary Atherosclerosis Postsurgical Percutaneous Transluminal Coronary Angioplasty Status Stage 3a Chronic Kidney Disease (Hcc) Circumscribed Scleroderma Class 3 Severe Obesity Due to Excess Calories Without Serious Comorbidity With Body Mass Index (Bmi) of 40.0 to 44.9 in Adult (Hcc) Plantar Fasciitis, Bilateral Type 2 Diabetes Mellitus With Stage 3a Chronic Kidney Disease, Without Long-Term Current Use of Insulin (Hcc) nursing home current use of 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 History of Pulmonary Embolus (Pe) Hypertensive Kidney Disease With Stage 3a Chronic Kidney Disease (Hcc) Vitamin D Deficiency Hypomagnesemia Pulmonary Embolism Without Acute Cor Pulmonale (Hcc) Presents today for diarrhea. She called the office earlier today and reported the following (excerpted): Patient calls for diarrhea. Nurse triage recommends appointment to be seen within 24 hours. Patient agreeable. Appointment scheduled. Care advice reviewed. Patient verbalizes understanding. Reason for Disposition [1] SEVERE diarrhea (e.g., 7 or more times / day more than normal) AND [2] age > 60 years Answer Assessment - Initial Assessment Questions 1. DIARRHEA SEVERITY: - SEVERE (SCALE 8-10; OR WORST POSSIBLE): Increase of 7 or more stools daily over normal; moderate increase in ostomy output; incontinence. 2. ONSET: the past week 3. STOOL DESCRIPTION: Mostly liquid. Once in a while a little more solid. 4. VOMITING: No vomiting 5. ABDOMEN PAIN: NA 6. ABDOMEN PAIN SEVERITY: NA 7. ORAL INTAKE:Drinking about 68 oz of fluids mostly water. 8. HYDRATION: Patient reports she is usually somewhat dehydrated. Voided last time this morning. 9. EXPOSURE: Patient was in [place] vacationing when diarrhea started. Doesn't recall eating anything that could have caused diarrhea and nothing spoiled. No recent foreign travel. Patient did try imodium but didn't seem to make a difference. 10. ANTIBIOTIC USE: No 11. OTHER SYMPTOMS: No fever, blood in stool possibly x 1 yesterday. Reports the toilet bowel water looked pink but none since. 12. : No Protocols used: [id number] She reports being on vacation in [place]. She noted that she started with loose stools last Friday. Has persisted and progressively worse/more frequent. Notes not eating much. Fluid intake, trying to push but not getting 64 oz/day in Duration: 6 to 7 days Onset: one week, gradual onset Sick contacts: no Fever:no Heartburn: Reflux: no Abdominal pain: no Nausea: no Vomiting: no Diarrhea: x 7 days Constipation: BRBPR: no Black tarry: no No recent hospitalization or antibiotic use is known. She has lost 11 pounds of weight in the last week. She noted pink-tinge on TP with BM a couple times but no blood. Review of Systems Constitutional: Negative. Respiratory: Negative. Endocrine: Negative. Musculoskeletal: Positive for arthralgias, back pain and gait problem. Objective BP 107/58 Pulse (!) 53 Temp 36.4 ?C (97.5 ?F) Resp 16 Wt 110 kg (242 lb 8.1 oz) BMI 42.28 kg/m? Physical Exam Vitals and nursing note reviewed. Constitutional: Appearance: Normal appearance. HENT: Head: Normocephalic and atraumatic. Eyes: Conjunctiva/sclera: Conjunctivae normal. Neck: Thyroid: No thyromegaly. Vascular: Normal carotid pulses. No JVD. Cardiovascular: Rate and Rhythm: Normal rate and regular rhythm. Pulses: Carotid pulses are 2+ on the right side and 2+ on the left side. Radial pulses are 2+ on the right side and 2+ on the left side. Heart sounds: Normal heart sounds. Pulmonary: Effort: Pulmonary effort is normal. Breath sounds: Normal breath sounds. Abdominal: General: Bowel sounds are normal. There is no distension. Palpations: Abdomen is soft. There is no mass. Tenderness: There is no abdominal tenderness. There is no guarding or rebound. Musculoskeletal: Lumbar back: Tenderness present. Right lower leg: No edema. Left lower leg: No edema. Skin: General: Skin is warm and dry. Neurological: General: No focal deficit present. Mental Status: She is alert and oriented to person, place, and time. ALLERGIES Allergen Reactions Adhesive Tape (Herminia* Other: See Comments Burning an (more content not included)...[facility]11-04[facility] Telephone encounter Note* Telephone Encounter - nAgy Maher RN - 10/04/2024 12:07 PM EST Patient calls for diarrhea. Nurse triage recommends appointment to be seen within 24 hours. Patientagreeable. Appointment scheduled. Care advice reviewed. Patient verbalizes understanding. Reason for Disposition [1] SEVERE diarrhea (e.g., 7 or more times / day more than normal) AND [2] age > 60 years Answer Assessment - Initial Assessment Questions 1. DIARRHEA SEVERITY: - SEVERE (SCALE 8-10; OR WORST POSSIBLE): Increase of 7 or more stools daily over normal; moderate increase in ostomy output; incontinence. 2. ONSET: the past week 3. STOOL DESCRIPTION: Mostly liquid. Once in a while a little more solid. 4. VOMITING: No vomiting 5. ABDOMEN PAIN: NA 6. ABDOMEN PAIN SEVERITY: NA 7. ORAL INTAKE:Drinking about 68 oz of fluids mostly water. 8. HYDRATION: Patient reports she is usually somewhat dehydrated. Voided last time this morning. 9. EXPOSURE: Patient was in [place] when diarrhea started. Doesn't recall eating anything that could have caused diarrhea and nothing spoiled. No recent foreign travel. Patient did try imodium but didn't seem to make a difference. 10. ANTIBIOTIC USE: No 11. OTHER SYMPTOMS: No fever, blood in stool possibly x 1 yesterday. Reports the toilet bowel waterlooked pink but none since. 12. : No Protocols used: [id number] [facility]-04[facility] Miscellaneous Notes* Telephone Encounter - Angy Maher RN - 10/04/2024 12:07 PM EST Patient calls for diarrhea. Nurse triage recommends appointment to be seen within 24 hours. Patientagreeable. Appointment scheduled. Care advice reviewed. Patient verbalizes understanding. Reason for Disposition [1] SEVERE diarrhea (e.g., 7 or more times / day more than normal) AND [2] age > 60 years Answer Assessment - Initial Assessment Questions 1. DIARRHEA SEVERITY: - SEVERE (SCALE 8-10; OR WORST POSSIBLE): Increase of 7 or more stools daily over normal; moderate increase in ostomy output; incontinence. 2. ONSET: the past week 3. STOOL DESCRIPTION: Mostly liquid. Once in a while a little more solid. 4. VOMITING: No vomiting 5. ABDOMEN PAIN: NA 6. ABDOMEN PAIN SEVERITY: NA 7. ORAL INTAKE:Drinking about 68 oz of fluids mostly water. 8. HYDRATION: Patient reports she is usually somewhat dehydrated. Voided last time this morning. 9. EXPOSURE: Patient was in [place] when diarrhea started. Doesn't recall eating anything that could have caused diarrhea and nothing spoiled. No recent foreign travel. Patient did try imodium but didn't seem to make a difference. 10. ANTIBIOTIC USE: No 11. OTHER SYMPTOMS: No fever, blood in stool possibly x 1 yesterday. Reports the toilet bowel waterlooked pink but none since. 12. : No Protocols used: [id number] documented in this encounterDetwiler [facility]10-17-2024 NoteHNO ID: [id number] Author: SEVERINO HEALY RN Service: ? Author Type: Registered Nurse Type: Progress Notes Filed: 09/16/2024 17:22 Note Text: [facility]cp agrees with informationTr[facility] History of Present illness Narrative* Severino Healy RN - 09/16/2024 5:22 PM EDT pcp agrees with information * Severino Healy RN - 09/16/2024 11:50 AM EDT patient had inr completed at [facility] patients inr is 2.1 (patients inr range is 2.0-3.0) patient is currently taking 2.5mg Tues,Thurs,Sun and 5mg all other days patients last dose change was on 08/18/24 due to a low level of 1.6 (dose at that time was 5mg Mon,Wed,Fri and 2.5mg all other days) patient has had no changes in medication and no missed doses and no change in diet Advised patient to continue on the same dose(s) and that they would only be contacted regarding dosage and follow up instructions after review with provider, if a change is needed. Written instructions given and patient verbalized understanding. Presently scheduled in 1 month (10/20/24 - pt has appt with pcp also this day) for follow up INR. documented in this encounterDetwiler [facility]10-17-2024 NoteHNO ID: [id number] Author: SEVERINO HEALY RN Service: ? Author Type: Registered Nurse Type: Progress Notes Filed: 09/16/2024 17:22 Note Text: patient had inr completed at [facility] patients inr is 2.1 (patients inr range is 2.0-3.0) patient is currently taking 2.5mg Tues,Thurs,Sun and 5mg all other days patients last dose change was on 08/18/24 due to a low level of 1.6 (dose at that time was 5mg Mon,Wed,Fri and 2.5mg all other days) patient has had no changes in medication and no missed doses and no change in diet Advised patient to continue on the same dose(s) and that they would only be contacted regarding dosage and follow up instructions after review with provider, if a change is needed. Written instructions given and patient verbalized understanding. Presently scheduled in 1 month (10/20/24 - pt has appt with pcp also this day) for follow up INR.[facility]10-03-[facility]24 NoteHNO ID: [id number] Author: HERBERT JAY APRN.CNS Service: ? Author Type: Nurse Specialist Type: Progress Notes Filed: 09/02/2024 15:05 Note Text: Continue with Coumadin dose unchanged and check INR in 2 weeksTr[facility]10-03-[facility] History of Present illness Narrative* Herbert Jay APRN.CNS - 09/02/2024 10:41 AM EDT Continue with Coumadin dose unchanged and check INR in 2 weeks * Severino Healy, PERLA - 09/02/2024 10:14 AM EDT patient had inr completed at [facility] patients inr is 2.3 (patients inr range is 2.0-3.0) patient is currently taking 2.5mg Tues,Thurs Sun and 5mg all other days patients last dose change was on 08/18/24 due to a low level of 1.6 (dose at that time was 5mg Mon,Wed,Fri and 2.5mg all other days) patient has had no changes in medication except for coumadin and no missed doses and no change in diet Advised patient to continue on the same dose(s) and that they would only be contacted regarding dosage and follow up instructions after review with provider, if a change is needed. Written instructions given and patient verbalized understanding. Presently scheduled in 2 weeks (09/16/24) for follow u p INR since this is the first normal reading since dose change documented in this encounterDetwiler [facility]10-03-2024 NoteHNO ID: [id number] Author: SEVERINO HEALY RN Service: ? Author Type: Registered Nurse Type: Progress Notes Filed: 09/02/2024 15:05 Note Text: patient had inr completed at [facility] patients inr is 2.3 (patients inr range is 2.0-3.0) patient is currently taking 2.5mg Tues,Thurs Sun and 5mg all other days patients last dose change was on 08/18/24 due to a low level of 1.6 (dose at that time was 5mg Mon,Wed,Fri and 2.5mg all other days) patient has had no changes in medication except for coumadin and no missed doses and no change in diet Advised patient to continue on the same dose(s) and that they would only be contacted regarding dosage and follow up instructions after review with provider, if a change is needed. Written instructions given and patient verbalized understanding. Presently scheduled in 2 weeks (09/16/24) for follow up INR since this is the first normal reading since dose changeTr[facility]ull [facility]09-18-2024 NoteHNO ID: [id number] Author: SEVERINO HEALY RN Service: ? Author Type: Registered Nurse Type: Progress Notes Filed: 08/18/2024 12:41 Note Text: pcp agrees with informationTr[facility]ull [facility]09-18-[facility] History of Present illness Narrative* Severino Healy, RN - 08/18/2024 12:40 PM EDT pcp agrees with information * Severino Healy, RN - 08/18/2024 9:35 AM EDT patient had inr completed at [facility] patients inr is 1.6 (patients inr range is 2.0-3.0) patient is currently taking 5mg Mon,Wed,Fri and 2.5mg all other days patients last dose change was on 08/05/24 due to a high level of 3.4 (dose at that time was 2.5mg Tues,Thurs and 5mg all other days) patient has had no changes in medication and no missed doses and no change in diet recommend: patient change coumadin to 2.5mg Tues,Thurs,Sun and 5mg all other days and recheck in 2 weeks patient has been scheduled for a 2 week follow up inr on 09/02/24 please review and advise on recommendation patient only needs called if provider does not agree with recommendation documented in this encounterDetwiler [facility]09-18-2024 NoteHNO ID: [id number] Author: SEVERINO HEALY, RN Service: ? Author Type: Registered Nurse Type: Progress Notes Filed: 08/18/2024 12:41 Note Text: patient had inr completed at [facility] patients inr is 1.6 (patients inr range is 2.0-3.0) patient is currently taking 5mg Mon,Wed,Fri and 2.5mg all other days patients last dose change was on 08/05/24 due to a high level of 3.4 (dose at that time was 2.5mg Tues,Thurs and 5mg all other days) patient has had no changes in medication and no missed doses and no change in diet recommend: patient change coumadin to 2.5mg Tues,Thurs,Sun and 5mg all other days and recheck in 2 weeks patient has been scheduled for a 2 week follow up inr on 09/02/24 please review and advise on recommendation patient only needs called if provider does not agree with recommendation [facility]09-[facility] History of Present illness Narrative* Herbert Jay APRN.GARDENING SUPERVISOR - 08/05/2024 12:09 PM EDT Coumadin 5 mg Friday and 2.5 mg all other days. Check INR in 2 weeks as she declines to come to the lab in 1 week when coumdin clinic is closed. * Severino Healy RN - 08/05/2024 11:20 AM EDT patient had inr completed at [facility] patients inr is 3.4 (patients inr range is 2.0-3.0) patient is currently taking 2.5mg Tues,Thurs and 5mg all other days patients last dose change was on 07/29/24 due to a high level of 3.3 (dose at that time was 2.5mg Tues and 5mg all other days) patient has had no changes in medication except for coumadin and no missed doses and no change in diet recommend: patient change coumadin to 5mg Fri,Fri,Fri and 2.5mg all other days and recheck in 2 weeks due to the cc will be closed at the 1 week josie and patient declines lab drawl patient has been scheduled for a 2 week inr follow up on 08/18/24 please review and advise on recommendation patient only needs called if provider does not agree with recommendation documented in this encounterDetwiler [facility]08-29-[facility] History of Present illness Narrative* Severino Healy RN - 07/29/2024 4:53 PM EDT pcp agrees with information * Severino Healy RN - 07/29/2024 12:21 PM EDT patient had inr completed at [facility] patients inr is 3.3 (patients inr range is 2.0-3.0) patient is currently taking 2.5mg Tues and 5mg all other days patients last dose change was on 03/05/24 due to a low level of 1.8 (dose at that time was 2.5mg Tues,Thurs and 5mg all other days) patient has had no changes in medication and no missed doses and no change in diet recommend: patient change coumadin to 2.5mg Tues,Thurs and 5mg all other days and recheck in 1 week patient has been scheduled for a 1 week follow up inr on 08/05/24 please review and advise on recommendation patient only needs called if provider does not agree with recommendation documented in this encounterDetwiler [facility]08-27-[facility] Instructions* Patient Instructions* Jose De Jesus Harrington MD - 07/27/2024 4:35 PM EDT -Amlodipine (Norvasc) 2.5 mg at bedtime has been prescribed to help manage your blood pressure; monitor for any signs of leg swelling and contact the clinic if this occurs - Continue to monitor your blood pressure at home, ensuring you are relaxed and seated with your feet flat on the ground and arm supported - Consider scheduling an appointment with a sleep medicine provider to discuss treatment options for your sleep apnea, which may be contributing to your elevated blood pressure levels in the morning - Complete your lab work before your cardiology appointment on August 25 - You may receive your flu shot and RSV vaccine at the same time, but it is recommended to limit the number of vaccines received simultaneously to avoid potential side effects - Your next appointment is scheduled for October 20 documented in [facility] History of Present illness Narrative* Jose De Jesus Harrington MD - 07/27/2024 3:50 PM EDT Images from the original note were not included. This note was created using [employer]. Subjective Yobani Reid is a 79 year old female. Patient presents with: Established Patient: Elevated BP recently SUBJECTIVE: Yobani Reid is a 79 year old year old lady here today for elevated BP follow up appointment for review of medical conditions. Patient is a 79-year-old female presenting today with concerns about elevated blood pressure readings at home. She reports that her blood pressure has been running higher than usual recently, with readings as high as 196/77 and 193/76. She has been monitoring her blood pressure at home using two different cuffs and has brought a log of her readings to the appointment. She denies any symptoms associated with the elevated blood pressure, such as light-headedness, dizziness, headaches, blurry vision, chest pain, or shortness of breath. Patient has a history of well-controlled blood pressure, with readings typically in the 120s/60s [id number]/70s range. She is currently taking atenolol 25 mg once daily, fosinopril 40 mg once daily, andisosorbide mononitrate 30 mg once daily for blood pressure management. She denies any recent changes to her medication regimen. Patient has a history of sleep apnea, diagnosed in October of last year, but has not pursued treatment due to an aversion to wearing a CPAP mask. She is scheduled to see her occupational therapist's assistant at the end of next month and has an appointment with her primary care provider in October. PAST MEDICAL HISTORY 05/11/14: Acute appendicitis No date: Allergic rhinitis, cause unspecified Comment: Allergic rhinitis 02/23/2010: CKD (chronic kidney disease) 10/24/2009: Coronary atherosclerosis of unspecified type of vessel, eyak or graft No date: Esophageal reflux Comment: Gastroesophageal reflux 11/13/2005: Impaired fasting glucose No date: Mixed hyperlipidemia Comment: Hyperlipidemia 08/27/2010: Musculoskeletal disorder of the masseter Comment: hypertrophy, from chronic bruxism 05/08/2018: Other pulmonary embolism without acute cor pulmonale (HCC) Comment: PE following surgery [facility] No date: Overactive bladder No date: Peptic ulcer, unspecified site, unspecified as acute or chronic, without mention of hemorrhage, perforation, or obstruction Comment: Peptic ulcer disease No date: Postmenopausal atrophic vaginitis Comment: Atroph. vaginitis/post-men. 12/15/2009: Postsurgical percutaneous transluminal coronary angioplasty status No date: Snoring 02/21/2014: Type II or unspecified type diabetes mellitus without mention of complication, not stated as uncontrolled No date: Unspecified essential hypertension Comment: Essential hypertension No date: Unspecified hypothyroidism Comment: Hypothyroidism No date: Unspecified urinary incontinence Comment: urge Current Outpatient Medications Medication Sig fosinopril sodium (MONOPRIL) 40 mg tablet Take 1 tablet by mouth once daily. atenolol (TENORMIN) 25 mg tablet Take 1 tablet by mouth once daily. Fenofibrate (LOFIBRA) 160 mg tablet Take 1 tablet by mouth once daily. omeprazole (PRILOSEC) 40 mg capsule Take 1 capsule by mouth once daily. nitroglycerin sublingual (NITROQUICK) 0.4 mg SL tablet Dissolve 1 tablet under the tongue as needed. DISSOLVE ON TONGUE FOR CHEST PAIN. IF NO PAIN RELIEF, CALL 911 magnesium oxide (MAG-OX) 400 mg (241.3 mg magnesium) tablet Take 2 tablets by mouth two times a day. warfarin (COUMADIN) 5 mg tablet 5mg Mon,Wed and 7.5mg all other days or as directed (Patient takingdifferently: Take 5 mg by mouth once daily. 5mg daily x 6 days and 2.5mg the other day or as directed) atorvastatin (LIPITOR) 40 mg tablet Take 1 tablet by mouth daily at bedtime. For cholesterol. isosorbide mononitrate ER (IMDUR) 30 mg 24 hr tablet Take 1 tablet by mouth once daily. levothyroxine (SYNTHROID) 112 mcg tablet Take 1 tablet by mouth once daily. Cholecalciferol, Vitamin D3, 50 mcg (2,000 unit) cap Take 1 capsule by mouth once daily. solifenacin (VESICARE) 5 mg tablet Take 5 mg by mouth once daily. hydrocortisone 2.5 % ointment Apply 1 application to affected area twice daily. warfarin (COUMADIN) 5 mg tablet Take 5 mg Mon, Wed and 7.5 mg all other days or as directed (Patient taking differently: Take 5 mg by mouth once daily. Take 5 mg daily x 6 days and 2.5mg the other day) blood sugar diagnostic (BLOOD GLUCOSE TEST) test strip Easy Max Test blood sugar(s) one time daily and as needed. Dx: Type 2 DM - Controlled E11.22 N18.3 Insulin: No Blood-Glucose Meter monitoring kit Glucose Meter of Choice - Kit - Dx: Other DM Code E11.22 N18.3 meclizine (ANTIVERT) 25 mg tab Take 1 tablet by mouth every 6 hours as needed (dizziness). (prescription given from ER) Lancets lancets Use as instructed--Check sugars up to once daily. DX: E11.9, Not insulin requiring aspirin(ECOTRIN LOW STRENGTH 81 MG TAB) Take one(1) tablet daily. oxymetazoline hcl(AFRIN SINUS NO DRIP 0.05 % NASAL MIST) as necessary No current facility-administered medications for this visit. Review of Systems Objective Pulse (!) 58 Temp 36 C (96.8 F) Resp 16 Wt 114.9 kg (253 lb 4.9 oz) SpO2 98% BMI 44.17 kg/m Last 5 Encounter Wt Readings: Date: Wt: 07/27/2024 114.9 kg (253 lb 4.9 oz) 04/19/2024 115.7 kg (255 lb) 12/29/2023 115.3 kg (254 lb 3.2 oz) 10/17/2023 113.9 kg (251 lb) 10/13/2023 113.9 kg (251 lb) No waist measurement recorded Estimated body mass index is 44.17 kg/m as calculated from the following: Height as of 09/15/23: 161.3 cm (5' 3.5). Weight as of this encounter: 114.9 kg (253 lb 4.9 oz). Last 5 Encounter BP Readings: Date: BP: 04/19/2024 138/64 12/29/2023 142/78 12/16/2023 168/70 10/17/2023 118/68 10/13/2023 125/68 138/75 on home cuff 149/73 on tenovi cuff. 07/27/24 1540 BP: 138/58 Pulse: (!) 58 Resp: 16 Temp: 36 C (96.8 F) SpO2: 98% Weight: 114.9 kg (253 lb 4.9 oz) Physical Exam Constitutional: Appearance: Normal appearance. She is obese. HENT: Head: Normocephalic. Eyes: Conjunctiva/sclera: Conjunctivae normal. Cardiovascular: Rate and Rhythm: Normal rate and regular rhythm. Heart sounds: Normal heart sounds. Pulmonary: Effort: Pulmonary effort is normal. Breath sounds: Normal breath sounds. Musculoskeletal: Right lower leg: No edema. Left lower leg: No edema. Skin: General: Skin is warm and dry. Neurological: General: No focal deficit present. Mental Status: She is alert and oriented to person, place, and time. Psychiatric: Mood and Affect: Mood normal. Behavior: Behavior normal. Thought Content: Thought content normal. Judgment: Judgment normal. Latest Ref Rng 09/01/2023 03/19/2024 WBC 3.70 - 11.00 k/uL 8.05 6.12 RBC 3.90 - 5.20 m/uL 4.62 4.80 Hemoglobin 11.5 - 15.5 g/dL 12.8 13.1 Hematocrit 36.0 - 46.0 % 41.3 42.0 MCV 80.0 - 100.0 fL 89.4 87.5 MCH 26.0 - 34.0 pg 27.7 27.3 MCHC 30.5 - 36.0 g/dL 31.0 31.2 RDW-CV 11.5 - 15.0 % 14.9 15.7 (H) Platelet Count 150 - 400 k/uL 320 326 MPV 9.0 - 12.7 fL 11.7 11.7 Neut% % 67.7 Abs Neut (ANC) 1.45 - 7.50 k/uL 5.44 Lymph% % 20.6 Abs Lymph 1.00 - 4.00 k/uL 1.66 Peñuelas% % 7.7 Abs Peñuel[place] <0.87 k/uL 0.62 Eosin% % 3.2 Abs Eosin <0.46 k/uL 0.26 Baso% % 0.6 Abs Baso <0.11 k/uL 0.05 Immature Gran % % 0.2 IMMATURE GRANS (ABS) <0.10 k/uL <0.03 NRBC /100 WBC 0.0 Absolute nRBC <0.01 k/uL <0.01 <0.01 DTYPE Auto Protein, Total 6.3 - 8.0 g/dL 7.6 7.4 Albumin 3.9 - 4.9 g/dL 4.3 4.3 Calcium 8.5 - 10.2 mg/dL 10.4 (H) 10.5 (H) Bilirubin, Total 0.2 - 1.3 mg/dL 0.6 0.8 Alkaline Phosphatase 34 - 123 U/L 43 57 AST 13 - 35 U/L 24 19 ALT 7 - 38 U/L 17 10 Glucose 74 - 99 mg/dL 93 110 (H) BUN 7 - 21 mg/dL 21 21 Creatinine 0.58 - 0.96 mg/dL 1.29 (H) 1.43 (H) Sodium 136 - 144 mmol/L 142 141 Potassium 3.7 - 5.1 mmol/L 5.0 5.2 (H) Chloride 97 - 105 mmol/L 106 (H) 105 CO2 22 - 30 mmol/L 26 27 Anion Gap 9 - 18 mmol/L 10 9 eGFR >=60 mL/min/1.73m 43 (L) 38 (L) Cholesterol, Total <200 mg/dL 171 185 Triglyceride <150 mg/dL 104 95 HDL Cholesterol >39 mg/dL 48 52 Non HDL Cholesterol <130 mg/dL 123 133 (H) Fasting Time hrs 12 13 VLDL Cholesterol <30 mg/dL 21 19 TC:HDL Ratio <5.10 3.56 3.56 LDL Cholesterol <100 mg/dL 102 (H) 114 (H) LDL:HDL Ratio <2.54 2.13 2.19 Creatinine, Ur Random (UCRR) 20.0 - 300.0 mg/dL 54.5 Albumin, Urine Random mg/L <12.0 Albumin/Creat Ratio <30 mg/g <22 Hemoglobin A1C 4.3 - 5.6 % 6.5 (H) 6.3 (H) Estimated Average Glucose mg/dL 140 134 Vitamin B12 232 - 1,245 pg/mL 741 PTH, Intact 15 - 65 pg/mL 27 Vitamin D 25 Hydroxy 31.0 - 80.0 ng/mL 24.1 (L) 32.3 TSH 0.270 - 4.200 mIU/L 1.360 2.560 Magnesium 1.7 - 2.3 mg/dL 2.2 2.1 Legend: (H) High (L) Low Hemoglobin A1C (%) Date Value 03/19/2024 6.3 09/01/2023 6.5 03/24/2023 6.3 12/17/2022 6.2 06/18/2022 6.2 12/18/2021 6.2 04/10/2021 6.2 09/01/2020 6.3 01/04/2020 6.1 06/22/2019 6.2 Assessment and Plan # Essential hypertension - Recent home blood pressure readings have been elevated, with systolic values reaching up to 196 mmHg and diastolic values up to 104 mmHg. No associated symptoms such as dizziness, headaches, or chest pain reported. - Current antihypertensive regimen includes atenolol 25 mg daily, fosinopril 40 mg daily, and isosorbide mononitrate 30 mg daily. - Office blood pressure readings today were 138/58 mmHg and 146/62 mmHg. 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 - Discussed potential side effects of amlodipine, including peripheral edema. - Patient advised to continue monitoring blood pressure at home and maintain a log for review at the upcoming cardiology appointment at the end of August. - Ordered comprehensive lab work to be completed in early August, including kidney function tests, liver function tests, blood glucose levels, complete blood count, vitamin D, parathyroid hormone,cholesterol panel, TSH, A1c, and magnesium levels. - Patient advised to stay hydrated before lab tests to ensure accurate kidney function results. - Discussed the importance of managing sleep apnea, which may contribute to elevated blood pressure. Recommended follow-up with sleep medicine providers to explore alternative treatment options. - Patient educated on the importance of maintaining a balanced diet with adequate but not excessivesalt intake. - Advised patient to continue regular exercise and weight management efforts. - Discussed the benefits of receiving the RSV vaccine, given the patient's history of heart diseaseand diabetes. - Patient to follow up with cardiology at the end of August and with me on October 20. PATRICIA--okay with seeing sleep medicine provider to discuss options for treatment. Afraid will not tolerate mask since has issues with claustrophobia. PSG report from [facility] reviewed. AHI score in 15 rangeand pulse ox under 88% for about 49 minutes. Copy of report to be scanned into [employer]. Needs to keep working on diet and exercise with lifestyle changes for effective weight loss as wellas prevention of DM, and control of BP and lipids. BMI starting to come down again. Jose De Jesus Harrington MD documented in [facility] encounterDet[facility]-27-[facility] Telephone encounter Note * Telephone Encounter - Desiree Dailey RN - 07/27/2024 10:02 AM EDT Appt made for patient with PCP for today regarding the following: Pt calling in to state her BP has been high in the mornings recently. Recent BP's have been runningat 187/72, 193/76, 196/77 for example. Reports after taking her BP medications, her BP does come down. Pt has questions and would like to discuss these concerns with her provider. PCP office had openingtoday and pt was scheduled. Pt will bring in home BP monitor to OV as well. Also, pt shares that a company called [employer] had reached out to her last month offering a BP monitoring service, which she has accepted and has been using. Informed pt that this service has not been in contact with PCP, according to record. Pt to discuss this in more detail with PCP at today's visit as well. Desiree Dailey RN [facility]08-27-[facility] Miscellaneous Notes* Telephone Encounter - Desiree Dailey RN - 07/27/2024 10:02 AM EDT Appt made for patient with PCP for today regarding the following: Pt calling in to state her BP has been high in the mornings recently. Recent BP's have been runningat 187/72, 193/76, 196/77 for example. Reports after taking her BP medications, her BP does come down. Pt has questions and would like to discuss these concerns with her provider. PCP office had openingtoday and pt was scheduled. Pt will bring in home BP monitor to OV as well. Also, pt shares that a company called [employer] had reached out to her last month offering a BP monitoring service, which she has accepted and has been using. Informed pt that this service has not been in contact with PCP, according to record. Pt to discuss this in more detail with PCP at today's visit as well. Desiree Dailey RN documented in this encounterDetw[facility]08-13-2024 Telephone encounter Note * Telephone Encounter - Britney Deleon RN - 07/13/2024 11:43 AM EDT Pt called in reporting she had been getting calls from the providers office, but they hadn't been leaving messages. I let her know we haven't called her since 07/01/24 for her INR. She was describing the phone calls and I let her know they sounded like scam calls and to hang up. Reported this to Shiela Franco RN nurse manager technical training. [facility] Miscellaneous Notes* Telephone Encounter - Britney Deleon RN - 07/13/2024 11:43 AM EDT Pt called in reporting she had been getting calls from the providers office, but they hadn't been leaving messages. I let her know we haven't called her since 07/01/24 for her INR. She was describing the phone calls and I let her know they sounded like scam calls and to hang up. Reported this to Shiela Franco RN nurse manager technical training. documented in this encounterDetwiler [facility]08-01-2024 History of Present illness Narrative* Sandy Leary LPN - 07/01/2024 3:35 PM EDT Noted Sandy Leary LPN * Herbert Jay APRN.CNS - 07/01/2024 11:20 AM EDT Continue with Coumadin dose unchanged and check INR in 4 weeks * Severino Healy RN - 07/01/2024 10:21 AM EDT patient had inr completed at [facility] patients inr is 2.6 (patients inr range is 2.0-3.0) patient is currently taking 2.5mg Tues and 5mg all other days patients last dose change was on 03/05/24 due to a low level of 1.8 (dose at that time was 2.5mg Tues,Thurs and 5mg all other days) patient has had no changes in medication and no missed doses and no change in diet Advised patient to continue on the same dose(s) and that they would only be contacted regarding dosage and follow up instructions after review with provider, if a change is needed. Written instructions given and patient verbalized understanding. Presently scheduled in 4 weeks (07/29/24) for follow up INR. documented in this encounterDetwiler [facility]06-27-2024 History of Present illness Narrative* Herbert Jay APRN.CNS - 05/27/2024 1:52 PM EDT Continue Coumadin dose unchanged check INR 1 month * Severino Healy RN - 05/27/2024 11:51 AM EDT patient had inr completed at [facility] patients inr is 2.9 (patients inr range is 2.0-3.0) patient is currently taking 2.5mg Tues and 5mg all other days patients last dose change was on 03/05/24 due to a low level of 1.8 (dose at that time was 2.5mg Tues,Thurs and 5mg all other days) patient has had no changes in medication and no missed doses and no change in diet Advised patient to continue on the same dose(s) and that they would only be contacted regarding dosage and follow up instructions after review with provider, if a change is needed. Written instructions given and patient verbalized understanding. Presently scheduled in 1 month (07/01/24) for follow up INR. documented in this encounterDetwiler [facility]05-30-2024 History of Present illness Narrative* Herbert Jay APRN.CNS - 04/29/2024 4:08 PM EDT Continue with Coumadin dose unchanged and check INR in 4 weeks * Severino Healy, PERLA - 04/29/2024 10:27 AM EDT patient had inr completed at [facility] patients inr is 2.7 (patients inr range is 2.0-3.0) patient is currently taking 2.5mg Tues and 5mg all other days patients last dose change was on 03/05/24 due to a low level of 1.8 (dose at that time was 2.5mg Tues,Thurs and 5mg all other days) patient has had no changes in medication and no missed doses and no change in diet Advised patient to continue on the same dose(s) and that they would only be contacted regarding dosage and follow up instructions after review with provider, if a change is needed. Written instructions given and patient verbalized understanding. Presently scheduled in 4 weeks (05/27/24) for follow up INR. documented in this encounterDetwiler [facility]05-20-2024 History of Present illness Narrative* Olimpia Gomez APRN.COMPENSATION DIRECTOR - 04/19/2024 1:57 PM EDT SUBJECTIVE Yobani Reid is a 78 year old female here today for a check up on her medical problems. Chief Complaint Patient presents with: F/U 6 months HPI Yobani Reid is a 78 year old female. She is an established patient of Jose De Jesus Harrington MD, she presents today for a 6 month follow up. Since last visit she started doing exercise classes. Weight gradually going down. Feels good. History of DM, HTN, HLD, CAD, PE (on coumadin), hypothyroid, vitamin d def. Yobani Reid is a 78 year old female here today for a check up on her diabetes. She has been checking fingerstick blood sugars: Yes Her blood sugars have been controlled? Yes Denies increased urinating, eating, and drinking. Most recent HbA1c tests were: Lab Results Component Value Date HBA1C 6.3 (H) 03/19/2024 HBA1C 6.5 (H) 09/01/2023 HBA1C 6.3 (H) 03/24/2023 They are here today for a recheck of blood pressure. Blood pressure appears to be controlled. Denies any symptoms referable to elevated blood pressure. Specifically denies headache, chest pain, palpitations, dyspnea and peripheral edema. Behavioral Health Screening PHQ-2 Score: 0 (Lower risk for depression) THIAGO-2 Score: 0 (Lower risk for anxiety) Recommendation: No further intervention at this time Her medications were reviewed today and her list is now up to date. Medications Current Outpatient Medications Medication Sig magnesium oxide (MAG-OX) 400 mg (241.3 mg magnesium) tablet Take 2 tablets by mouth two times a day. atorvastatin (LIPITOR) 40 mg tablet Take 1 tablet by mouth daily at bedtime. For cholesterol. isosorbide mononitrate ER (IMDUR) 30 mg 24 hr tablet Take 1 tablet by mouth once daily. levothyroxine (SYNTHROID) 112 mcg tablet Take 1 tablet by mouth once daily. Cholecalciferol, Vitamin D3, 50 mcg (2,000 unit) cap Take 1 capsule by mouth once daily. solifenacin (VESICARE) 5 mg tablet Take 5 mg by mouth once daily. hydrocortisone 2.5 % ointment Apply 1 application to affected area twice daily. warfarin (COUMADIN) 5 mg tablet Take 5 mg Mon, Wed and 7.5 mg all other days or as directed (Patient taking differently: Take 5 mg daily) meclizine (ANTIVERT) 25 mg tab Take 1 tablet by mouth every 6 hours as needed (dizziness). (prescription given from ER) aspirin(ECOTRIN LOW STRENGTH 81 MG TAB) Take one(1) tablet daily. oxymetazoline hcl(AFRIN SINUS NO DRIP 0.05 % NASAL MIST) as necessary fosinopril sodium (MONOPRIL) 40 mg tablet Take 1 tablet by mouth once daily. atenolol (TENORMIN) 25 mg tablet Take 1 tablet by mouth once daily. Fenofibrate (LOFIBRA) 160 mg tablet Take 1 tablet by mouth once daily. omeprazole (PRILOSEC) 40 mg capsule Take 1 capsule by mouth once daily. nitroglycerin sublingual (NITROQUICK) 0.4 mg SL tablet Dissolve 1 tablet under the tongue as needed. DISSOLVE ON TONGUE FOR CHEST PAIN. IF NO PAIN RELIEF, CALL 911 warfarin (COUMADIN) 5 mg tablet 5mg Mon,Wed and 7.5mg all other days or as directed blood sugar diagnostic (BLOOD GLUCOSE TEST) test strip Easy Max Test blood sugar(s) one time daily and as needed. Dx: Type 2 DM - Controlled E11.22 N18.3 Insulin: No Blood-Glucose Meter monitoring kit Glucose Meter of Choice - Kit - Dx: Other DM Code E11.22 N18.3 Lancets lancets Use as instructed--Check sugars up to once daily. DX: E11.9, Not insulin requiring No current facility-administered medications for this visit. ALLERGIES Allergen Reactions Adhesive Tape (Herminia* Other: See Comments Burning and redness where tape touches skin Adhesive Tape-Silic* Rash Severe burning, red rash following colonoscopy at site of monitor on back Amoxicillin Rash Ampicillin Rash Niacin Rash flushing Penicillins Rash Sulfa (Sulfonamide * Rash ACTIVE PROBLEM LIST Pulmonary Embolism Without Acute Cor Pulmonale ([facility]) - 10/13/2023 Vitamin D Deficiency - 02/24/2022 Hypomagnesemia - 02/24/2022 Hypertensive Kidney Disease With Stage 3a Chronic Kidney Disease ([facility]) - 04/16/2021 nursing home current use of 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 - 05/08/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 Stage 3a Chronic Kidney Disease ([facility]) - 02/23/2010 Postsurgical Percutaneous Transluminal Coronary Angioplasty Status - 12/15/2009 Coronary Atherosclerosis - 10/24/2009 Chronic Rhinitis - 06/06/2009 Essential Hypertension Mixed Hyperlipidemia Postmenopausal Atrophic Vaginitis Acquired Hypothyroidism Unspecified Urinary Incontinence Social History Tobacco Use Smoking status: Former Packs/day: 1.00 Years: 10.00 Additional pack years: 0.00 Total pack years: 10.00 Types: Cigarettes Quit date: 12/01/1969 Years since quittin.4 Smokeless tobacco: Never Substance Use Topics Alcohol use: Yes Comment: Rarely Drug use: No Review of Systems Constitutional: Negative. Respiratory: Negative. Cardiovascular: Negative. OBJECTIVE BP 138/64 Pulse 55 Wt 255 lb (115.7kg) SpO2 97% Physical Exam Vitals and nursing note reviewed. Constitutional: General: She is awake. She is not in acute distress. Appearance: Normal appearance. She is well-developed and well-groomed. She is not ill-appearing, toxic-appearing or diaphoretic. HENT: Head: Normocephalic. Right Ear: External ear normal. Left Ear: External ear normal. Nose: Nose normal. Eyes: General: Vision grossly intact. Conjunctiva/sclera: Conjunctivae normal. Pupils: Pupils are equal, round, and reactive to light. Neck: Vascular: No JVD. Trachea: Trachea normal. Cardiovascular: Rate and Rhythm: Normal rate and regular rhythm. Pulses: Normal pulses. Heart sounds: Normal heart sounds. No murmur heard. Pulmonary: Effort: Pulmonary effort is normal. No accessory muscle usage, prolonged expiration or respiratory distress. Breath sounds: Normal breath sounds. Musculoskeletal: Cervical back: Neck supple. Skin: General: Skin is warm and dry. Capillary Refill: Capillary refill takes less than 2 seconds. Neurological: General: No focal deficit present. Mental Status: She is alert and oriented to person, place, and time. Mental status is at baseline. Psychiatric: Attention and Perception: Attention and perception normal. Mood and Affect: Mood and affect normal. Speech: Speech normal. Behavior: Behavior normal. Behavior is cooperative. Thought Content: Thought content normal. Cognition and Memory: Cognition and memory normal. Judgment: Judgment normal. ASSESSMENT/PLAN: 1. Essential hypertension - ICD9: 401.9, ICD10: I10 (primary diagnosis) - Controlled - Continue current medications - Recommend home blood pressure monitoring, to bring results to next visit - Encouraged sodium restriction, DASH or Mediterranean diet - Recommend regular aerobic exercise - FOSINOPRIL 40 MG TABLET - ATENOLOL 25 MG TABLET 2. Mixed hyperlipidemia - ICD9: 272.2, ICD10: E78.2 - Controlled - Continue current medications - Counseled on healthy diet and regular exercise - FENOFIBRATE 160 MG TABLET - LIPID PANEL BASIC 3. Atherosclerosis of eyak coronary artery of eyak heart without angina pectoris - ICD9: 414.01, ICD10: I25.10 - NITROGLYCERIN 0.4 MG SUBLINGUAL TABLET 4. Pulmonary embolism without acute cor pulmonale, unspecified chronicity, unspecified pulmonary embolism type (HCC) - ICD9: 415.19, ICD10: I26.99 On coumadin. 5. Class 3 severe obesity due to excess calories without serious comorbidity with body mass index (BMI) of 40.0 to 44.9 in adult ([facility]) - ICD9: 278.01, V85.41, ICD10: E66.01, Z68.41 6. Type 2 diabetes mellitus with stage 3a chronic kidney disease, without long- term current use of insulin ([facility]) - ICD9: 250.40, 585.3, ICD10: E11.22, N18.31 - Controlled - Counseled on healthy diet and regular exercise - Discussed need for and benefit of weight loss. BMI 44.46 kg/(m^2) - HEMOGLOBIN A1C 7. Hypercalcemia - ICD9: 275.42, ICD10: E83.52 - PTH INTACT 8. Vitamin D deficiency - ICD9: 268.9, ICD10: E55.9 - VITAMIN D 25 HYDROXY 9. Acquired hypothyroidism - ICD9: 244.9, ICD10: E03.9 - THYROID STIMULATING HORMONE 10. Encounter for therapeutic drug monitoring - ICD9: V58.83, ICD10: Z51.81 - COMPLETE BLOOD COUNT AND DIFFERENTIAL - COMPREHENSIVE METABOLIC PANEL - MAGNESIUM Portions of this note have been entered by ancillary staff. I have reviewed and when necessary edited, so that they are an adequate record of my encounter with this patient Please note that parts of this document were created using voice recognition software and therefore may contain grammatical errors. Patient verbalizes understanding of instructions from today's visit and in agreement with treatmentplan. Questions answered. Agrees to call the office if questions, concerns of issues with acute symptoms not improving or if they worsen. See diagnoses and orders for additional plan(s). Allergies and medications were reviewed, list was updated, and refills given if needed. Past medical, surgical, social, and family history reviewed and updated as appropriate. Encouraged proper diet & exercise as well as compliance with taking medications. Age- appropriate health preventative measures were discussed. Return if symptoms worsen or fail to improve, for Keep next scheduled appointment.. Olimpia Gomez APRN-COMPENSATION DIRECTOR documented [facility] Telephone encounter Note * Telephone Encounter - Melvina Glass LPN - 04/02/2024 8:16 AM EDT Patient has been identified by name and date of : Yes, Patient phones for refill(s): Requested Prescriptions Pending Prescriptions Disp Refills omeprazole (PRILOSEC) 40 mg capsule 90 capsule 0 Sig: Take 1 capsule by mouth once daily. Date of last office visit in primary care: 10/17/2023 Date of next office visit in primary care: 04/19/2024 Please advise. Thank you. Melvina Glass LPN. [facility]05-03-[facility] Miscellaneous Notes* Telephone Encounter - Melvina Glass LPN - 04/02/2024 8:16 AM EDT Patient has been identified by name and date of : Yes, Patient phones for refill(s): Requested Prescriptions Pending Prescriptions Disp Refills omeprazole (PRILOSEC) 40 mg capsule 90 capsule 0 Sig: Take 1 capsule by mouth once daily. Date of last office visit in primary care: 10/17/2023 Date of next office visit in primary care: 04/19/2024 Please advise. Thank you. Melvina Glass LPN. documented in this encounterDet[facility]05-02-[facility]24 History of Present illness Narrative* Herbert Jay APRN.CNS - 04/01/2024 2:37 PM EDT Continue with Coumadin dose unchanged and check INR in 4 weeks * Severino Healy RN - 04/01/2024 10:39 AM EDT patient had inr completed at [facility] patients inr is 2.4 (patients inr range is 2.0-3.0) patient is currently taking 2.5mg Tues,and 5mg all other days patients last dose change was on 03/05/24 due to a low level of 1.8 (dose at that time was 2.5mg TuesThurs and 5mg all other days) patient has had no changes in medication and no missed doses and no change in diet Advised patient to continue on the same dose(s) and that they would only be contacted regarding dosage and follow up instructions after review with provider, if a change is needed. Written instructions given and patient verbalized understanding. Presently scheduled in 4 weeks (04/29/24) for follow up INR. documented in this encounterDet[facility]04-[facility] History of Present illness Narrative* Severino Healy RN - 03/19/2024 3:45 PM EDT pcp agrees with information * Severino Healy RN - 03/19/2024 10:22 AM EDT patient had inr completed at [facility] patients inr is 1.9 (patients inr range is 2.0-3.0) patient is currently taking 2.5mg Tues and 5mg all other days patients last dose change was on 03/05/24 due to a low level of 1.8 (dose at that time was 2.5mg TuesThurs and 5mg all other days) patient has had no changes in medication except for coumadin and no missed doses and no change in diet Advised patient to continue on the same dose(s) and that they would only be contacted regarding dosage and follow up instructions after review with provider, if a change is needed. Written instructions given and patient verbalized understanding. Presently scheduled in 2 weeks (04/01/24) for follow up INR since level is just slightly low documented in this encounterDet[facility]04-05-[facility]24 History of Present illness Narrative* Severino Healy RN - 03/05/2024 3:08 PM EDT pcp agrees with information PATIENT NOTIFIED OF INFORMATION * Severino Healy RN - 03/05/2024 11:00 AM EDT patient had inr completed at [facility] patients inr is 1.8 (patients inr range is 2.0-3.0) patient is currently taking 2.5mg Tues,Thurs and 5mg all other days patients last dose change was on 12/18/23 due to a high level of 3.4 (dose at that time was 5mg daily) patient has had no changes in medication and no missed doses and no change in diet recommend: patient changing coumadin dose to 2.5mg Tues and 5mg all other days and rechecking inr in 2 weeks patient has been scheduled for a 2 week follow up inr on 03/09/24 please review and advise on recommendation documented in this encounterDet[facility]03-27-[facility]24 Telephone encounter Note * Telephone Encounter - Lexy Bates MA - 02/25/2024 10:48 AM EDT Pt notified. Rx at Medical records for belt picker. Lexy Bates MA [facility]03-27-[facility]24 Miscellaneous Notes* Telephone Encounter - Lexy Bates MA - 02/25/2024 10:48 AM EDT Pt notified. Rx at Medical records for belt picker. Lexy Bates MA * Telephone Encounter - Olimpia Gomez APRN.CNP - 02/25/2024 10:40 AM EDT I printed this and signed it, can we please call her to pick it up? Thanks! * Telephone Encounter - Renuka Coppola MA - 02/24/2024 1:54 PM EDT Magnesium Oxide 400 mg two cap BID. Orders updated. Renuka Coppola MA * Telephone Encounter - Renuka Coppola MA - 02/24/2024 8:14 AM EDT LM for patient to contact office to gather info needed below. Renuka Coppola MA * Telephone Encounter - Jose De Jesus Harrington MD - 02/23/2024 7:40 PM EDT Before printing these--magnesium is usually not dose in Units, but in milligrams, plus usually indicate magnesium (oxide, gluconate, glycinate, chloride). Verify before before printing so make sure accurate. I pended one for , one for 02/23/24 (might need to change tomorrow) Sorry could not get done today. * Telephone Encounter - Renuka Coppola MA - 02/23/2024 12:23 PM EDT Pt stopped in office asking for an order for Magnesium 1600 units daily. Pt reports that she knows insurance will not cover, but her medical spending plan will provided shecan show order from physician. Otherwise, it will be a $200 cost to the patient. Order pended for 2022 (per patient request since she is paying those bills) and one for 2023. Once filed, will need to print and contact patient to come belt picker. *she is requesting to have today Renuka Coppola MA documented in this encounterDet[facility]03-27-2024 Telephone encounter Note * Telephone Encounter - Olimpia Gomez APRN.CNP - 02/25/2024 10:40 AM EDT I printed this and signed it, can we please call her to pick it up? Thanks! [facility]03-[facility] Telephone encounter Note* Telephone Encounter - Renuka Coppola MA - 02/24/2024 1:54 PM EDT Magnesium Oxide 400 mg two cap BID. Orders updated. Renuka Coppola MA [facility]03-26-[facility] Telephone encounter Note* Telephone Encounter - Renuka Coppola MA - 02/24/2024 8:14 AM EDT LM for patient to contact office to gather info needed below. Renuka Coppola MA [facility]03-25-[facility] Telephone encounter Note* Telephone Encounter - Jose De Jesus Harrington MD - 02/23/2024 7:40 PM EDT Before printing these--magnesium is usually not dose in Units, but in milligrams, plus usually indicate magnesium (oxide, gluconate, glycinate, chloride). Verify before before printing so make sure accurate. I pended one for , one for 02/23/24 (might need to change tomorrow) Sorry could not get done today. [facility] Telephone encounter Note* Telephone Encounter - Renuka Coppola MA - 02/23/2024 12:23 PM EDT Pt stopped in office asking for an order for Magnesium 1600 units daily. Pt reports that she knows insurance will not cover, but her medical spending plan will provided shecan show order from physician. Otherwise, it will be a $200 cost to the patient. Order pended for 2022 (per patient request since she is paying those bills) and one for 2023. Once filed, will need to print and contact patient to come belt picker. *she is requesting to have today Renuka Coppola MA [facility]03-25-[facility] Miscellaneous Notes* Telephone Encounter - Severino Seaman - 02/23/2024 12:21 PM EDT Opened in error documented in this encounterDetwiler [facility]03-08-2024 History of Present illness Narrative* Severino Healy RN - 02/06/2024 3:34 PM EST pcp agrees with information * Severino Healy RN - 02/06/2024 12:56 PM EST patient had inr completed at [facility] patients inr is 2.1 (patients inr range is 2.0-3.0) patient is currently taking 2.5mg Tues,Thurs and 5mg all other days patients last dose change was on 12/18/23 due to a high level of 3.4 (dose at that time was 5mg daily) patient has had no changes in medication and no missed doses and no change in diet Advised patient to continue on the same dose(s) and that they would only be contacted regarding dosage and follow up instructions after review with provider, if a change is needed. Written instructions given and patient verbalized understanding. Presently scheduled in 4 weeks (03/05/24) for follow up INR. documented in this encounterDetwiler [facility]02-08-2024 History of Present illness Narrative* Herbert Jay APRN.CNS - 01/08/2024 12:37 PM EST Continue with Coumadin dose unchanged and check INR in 4 weeks * Severino Healy RN - 01/08/2024 11:41 AM EST patient had inr completed at [facility] patients inr is 2.7 (patients inr range is 2.0-3.0) patient is currently taking 2.5mg Tues,Thurs and 5mg all other days patients last dose change was on 12/18/23 due to a high level of 3.4 (dose at that time was 5mg daily) patient has had no changes in medication and no missed doses and no change in diet Advised patient to continue on the same dose(s) and that they would only be contacted regarding dosage and follow up instructions after review with provider, if a change is needed. Written instructions given and patient verbalized understanding. Presently scheduled in 4 weeks (02/06/24) for follow up INR. documented in this encounterDetwiler [facility]12-28-2023 Discharge summary Author Sami Cool [facility] November 27, 2023 11:03am Note Date/Time November 27, 2023 11:03am [facility] [address] [place] [address]. [address] [place] [address] / REHABILITATION SERVICES DISCHARGE SUMMARY MR#: [id number] Acct: [id number] Name: YOBANI REID Rep #: [id number] : 1945 78 From: Sami Cool PT, ATC Referring Dr.: Dr. Jennifer Black, DO Status: REG RCR Insurance: MEDICARE PART A B MEDICARE SUPPLEMENT PLAN Discharge Summary D/C summary: It has been my pleasure to treat YOBANI REID referred by Dr. Jennifer Black DO, with the diagnosis of R hip contusion for a total of 7 visit(s). Discharge Date: Please see the following information for a summary of their discharge status. Subjective Subjective: I am ready for discharge. I feel good today Pain R hip: Pain Intensity (Out of 10): 0 Overall Improvement % Improvement: 90 Objective Objective/Function: R hip pain ranges from 0-2/10 B LE strength 5/5 throughout FGA: indicating normal balance I with HEP Rx goals achieved Goals Goal 1:: Increase B LE strength x 1 grade to aid with stair negotiation Goal Progress: Goal Met Goal 2:: Improve the FGA score by 5 points to aid with preventing future falls Goal Progress: Goal Met Goal 3:: I with HEP Goal Progress: Goal Met Plan Plan: Discharge to HEP D/C Information d/c sentence: If there are questions or concerns regarding this patient's physical therapy, please feel free to call me at [phone]. Thank you for the referral of thispatient. Sincerely, Sami Cool, PT, ATC Balance/Gait/Functional tests Balance/Special Test Scores Functional Gait Assessment Score: 26 % Disability: 13.3400 Lower Extremity Functional Score: 61 Improvement % Improvement: 90 <Electronically signed by Sami Cool PT, ATC> 11/27/23 1103 CC: Dr. Jose De Jesus Harrington MD; Dr. Jennifer Black DO ~ [facility] Signed [facility] Work Phone: 1(149) 968-481412-01-2023 History of Present illness Narrative* Severino Healy RN - 10/31/2023 3:28 PM EST pcp agrees with information * Severino Healy RN - 10/31/2023 10:22 AM EST patient had inr completed at [facility] patients inr is 2.7 (patients inr range is 2.0-3.0) patient is currently taking 5mg daily patients last dose change was on 10/14/23 due to a high level of 3.5 (dose at that time was 7.5mg Wed and 5mg all other days) patient has had no changes in medication except for coumadin and no missed doses and no change in diet Advised patient to continue on the same dose(s) and that they would only be contacted regarding dosage and follow up instructions after review with provider, if a change is needed. Written instructions given and patient verbalized understanding. Presently scheduled in 3 weeks (11/19/23 - due to the holiday) for follow up INR. documented in this encounterDetw[facility]11-30-2023 Miscellaneous Notes* Telephone Encounter - Minerva Ca LPN - 10/30/2023 10:40 AM EST Pt has an appt with [facility] on 11/06/23 & from that office is requesting LUZ MARIA notes. Notes faxed to her at [phone]. Minerva Ca LPN documented in this encounterDetwiler [facility]11-17-2023 Miscellaneous Notes* Addendum Note - Jose De Jesus Harrington MD - 10/17/2023 9:10 AM ESTAddended by: JOSE DE JESUS HARRINGTON on: 10/17/2023 09:10 AM Modules accepted: Orders documented in this encounterDetwiler [facility]11-17-2023 Instructions* Patient Instructions* Jose De Jesus Harrington MD - 10/17/2023 8:43 AM EST Okay to put metformin on hold and see if sugars stay controlled without it. Also, see if keeps fromhaving problems witth bowels--diarrhea and gas. If bowels are better but sugars go up (fasting over 150 and nonfasting over 180), should try something else for blood sugar control if not able to make adjustments with diet and exercise to control sugars. If bowels not better and sugars go up, okay to resume metformin. Do not need calcium if getting 1200 to 1500 mg from diet. Do not need extra if getting from diet. Need to resume Vitamin D 2000 units daily. documented in this encounterDetwiler [facility]11-17-2023 History of Present illness Narrative* Jose De Jesus Harrington MD - 10/17/2023 8:13 AM EST Images from the original note were not included. This note was created using Tidemarkter. Subjective Yobani Reid is a 78 year old female. Patient presents with: F/U 6 months SUBJECTIVE: Yobani Reid is a 78 year old year old lady here today for 6 month follow up appointment for review of medical conditions. Therapy really helped. Not needing cane now. Still some resolving bruising. Still tenderness and resolving pain from the fall and contusion. Not keeping from sleeping. Left upper lid with redness and swelling. Swelling and redness down. Also nodule on upper lid. Going on [employer] [place] leaving this Friday. Will be 10 days. Still working staying hydrated. Increased urination if drinks more. Drinks at least 3 16oz bottles. Has had diarrhea since May and came back again after was in the hospital and got constipation thentook Senokot to get bowels moving. Tendency to get gas as well and goes back and forth with constipation and diarrhea. Has colonoscopy November 05. Got ahead on medications. Dr. Alejo sent refills to the mail in pharmacy. 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 vaginitis/post-men. Postsurgical percutaneous transluminal coronary angioplasty status 12/15/2009 Snoring Type II or unspecified type diabetes mellitus without mention of complication, not stated as uncontrolled 02/21/2014 Unspecified essential hypertension Essential hypertension Unspecified hypothyroidism Hypothyroidism Unspecified urinary incontinence urge Current Outpatient Medications Medication Sig Fenofibrate (LOFIBRA) 160 mg tablet Take 1 tablet by mouth once daily. atenolol (TENORMIN) 25 mg tablet Take 1 tablet by mouth once daily. fosinopril sodium (MONOPRIL) 40 mg tablet Take 1 tablet by mouth once daily. metFORMIN ER (GLUCOPHAGE XR) 500 mg 24 hr tablet Take 1 tablet by mouth once daily. With meal isosorbide mononitrate ER (IMDUR) 30 mg 24 hr tablet Take 1 tablet by mouth once daily. levothyroxine (SYNTHROID) 112 mcg tablet Take 1 tablet by mouth once daily. atorvastatin (LIPITOR) 40 mg tablet Take 1 tablet by mouth daily at bedtime. For cholesterol. warfarin (COUMADIN) 5 mg tablet 5mg Mon,Wed and 7.5mg all other days or as directed solifenacin (VESICARE) 5 mg tablet Take 5 mg by mouth once daily. hydrocortisone 2.5 % ointment Apply 1 application to affected area twice daily. warfarin (COUMADIN) 5 mg tablet Take 5 mg Mon, Wed and 7.5 mg all other days or as directed blood sugar diagnostic (BLOOD GLUCOSE TEST) test strip Easy Max Test blood sugar(s) one time daily and as needed. Dx: Type 2 DM - Controlled E11.22 N18.3 Insulin: No Blood-Glucose Meter monitoring kit Glucose Meter of Choice - Kit - Dx: Other DM Code E11.22 N18.3 nitroglycerin sublingual (NITROQUICK) 0.4 mg SL tablet Dissolve 1 tablet under the tongue as needed. DISSOLVE ON TONGUE FOR CHEST PAIN. IF NO PAIN RELIEF, CALL 911 meclizine (ANTIVERT) 25 mg tab Take 1 tablet by mouth every 6 hours as needed (dizziness). (prescription given from ER) magnesium oxide (MAG-OX) 400 mg tablet Take 2 tablets by mouth twice daily. Lancets lancets Use as instructed--Check sugars up to once daily. DX: E11.9, Not insulin requiring aspirin(ECOTRIN LOW STRENGTH 81 MG TAB) Take one(1) tablet daily. oxymetazoline hcl(AFRIN SINUS NO DRIP 0.05 % NASAL MIST) as necessary No current facility-administered medications for this visit. Review of Systems Objective BP 118/68 Pulse (!) 55 Temp (!) 35.7 C (96.3 F) Resp 18 Wt 113.9 kg (251 lb) SpO2 98% BMI 43.77 kg/m Physical Exam Eyes: Component Latest Ref Rng & Units 12/17/2022 03/24/2023 04/22/2023 06/04/2023 09/01/2023 WBC 3.70 - 11.00 k/uL 7.50 8.00 7.07 8.05 RBC 3.90 - 5.20 m/uL 4.74 4.41 4.74 4.62 Hemoglobin 11.5 - 15.5 g/dL 13.5 12.2 13.0 12.8 Hematocrit 36.0 - 46.0 % 43.0 40.2 42.4 41.3 MCV 80.0 - 100.0 fL 90.7 91.2 89.5 89.4 MCH 26.0 - 34.0 pg 28.5 27.7 27.4 27.7 MCHC 30.5 - 36.0 g/dL 31.4 30.3 (L) 30.7 31.0 RDW-CV 11.5 - 15.0 % 14.2 14.6 14.1 14.9 Platelet Count 150 - 400 k/uL 321 440 (H) 359 320 MPV 9.0 - 12.7 fL 11.3 11.0 11.5 11.7 Neut% % 61.1 60.0 67.7 Abs Neut (ANC) 1.45 - 7.50 k/uL 4.89 4.25 5.44 Lymph% % 23.1 25.5 20.6 Abs Lymph 1.00 - 4.00 k/uL 1.85 1.80 1.66 Peñuelas% % 9.5 9.1 7.7 Abs [place]uel[place] <0.87 k/uL 0.76 0.64 0.62 Eosin% % 4.8 3.7 3.2 Abs Eosin <0.46 k/uL 0.38 0.26 0.26 Baso% % 0.9 1.0 0.6 Abs Baso <0.11 k/uL 0.07 0.07 0.05 Immature Gran % % 0.6 0.7 0.2 IMMATURE GRANS (ABS) <0.10 k/uL 0.05 0.05 <0.03 NRBC /100 WBC 0.0 0.0 0.0 Absolute nRBC <0.01 k/uL <0.01 <0.01 <0.01 <0.01 DTYPE Auto Auto Auto Protein, Total 6.3 - 8.0 g/dL 7.2 7.5 7.7 7.6 Albumin 3.9 - 4.9 g/dL 4.6 4.1 4.2 4.3 Calcium 8.5 - 10.2 mg/dL 10.5 (H) 10.8 (H) 10.3 (H) 10.5 (H) 10.4 (H) Bilirubin, Total 0.2 - 1.3 mg/dL 0.5 0.6 0.6 0.6 Alkaline Phosphatase 34 - 123 U/L 50 42 44 43 AST 13 - 35 U/L 20 22 24 24 ALT 7 - 38 U/L 14 13 17 17 Glucose 74 - 99 mg/dL 96 106 (H) 99 105 (H) 93 BUN 7 - 21 mg/dL 21 26 (H) 23 (H) 22 (H) 21 Creatinine 0.58 - 0.96 mg/dL 1.13 (H) 1.41 (H) 1.22 (H) 1.24 (H) 1.29 (H) Sodium 136 - 144 mmol/L 140 141 141 137 142 Potassium 3.7 - 5.1 mmol/L 5.0 5.2 (H) 4.3 5.0 5.0 Chloride 97 - 105 mmol/L 105 105 105 102 106 (H) CO2 22 - 30 mmol/L 27 27 26 24 26 Anion Gap 9 - 18 mmol/L 8 (L) 9 10 11 10 eGFR >=60 mL/min/1.73m 51 (L) 39 (L) 46 (L) 45 (L) 43 (L) Cholesterol, Total <200 mg/dL 201 (H) 171 Triglyceride <150 mg/dL 124 104 HDL Cholesterol >39 mg/dL 52 48 Non HDL Cholesterol <130 mg/dL 149 (H) 123 Fasting Time hrs 15 12 VLDL Cholesterol <30 mg/dL 25 21 TC:HDL Ratio <5.10 3.87 3.56 LDL Cholesterol <100 mg/dL 124 (H) 102 (H) LDL:HDL Ratio <2.54 2.38 2.13 Creatinine, Ur Random (UCRR) 20.0 - 300.0 mg/dL 95.4 Albumin, Urine Random mg/L <12.0 Albumin/Creat Ratio <30 mg/g <13 Hemoglobin A1C 4.3 - 5.6 % 6.2 (H) 6.3 (H) 6.5 (H) Estimated Average Glucose mg/dL 131 134 140 Magnesium 1.7 - 2.3 mg/dL 2.1 2.2 Vitamin D 25 Hydroxy 31.0 - 80.0 ng/mL 34.2 33.7 24.1 (L) TSH 0.270 - 4.200 mIU/L 2.310 2.040 1.320 1.360 Free T4 0.9 - 1.7 ng/dL 1.6 PTH, Intact 15 - 65 pg/mL 25 27 Vitamin B12 232 - 1,245 pg/mL 741 Assessment and Plan Encounter Diagnosis ICD-10-CM 1. Type 2 diabetes mellitus with stage 3a chronic kidney disease, without long- term current use of insulin (HCC) E11.22 HGB A1C N18.31 COMP METABOLIC PANEL CBC LIPID PANEL BASIC ALBUMIN/CREAT RATIO RND UR 2. Hordeolum externum of left upper eyelid H00.014 Warm compresses as discussed and cleanse lids. Follow up with Dr. Espinosa as needed 3. Vitamin D deficiency E55.9 Cholecalciferol, Vitamin D3, 50 mcg (2,000 unit) cap VITAMIN D 25 HYDROXY resume Vitamin D supplement;level was never high 4. Acquired hypothyroidism E03.9 TSH BLD 5. Alternating constipation and diarrhea R19.8 Colonoscopy in October. Can try Metamucil. See if stopping calcium helps. 6. Hypercalcemia E83.52 CBC VITAMIN D 25 HYDROXY Will stop calcium supplement and resume Vitamin D 7. Essential hypertension I10 COMP METABOLIC PANEL CBC Well controlled 8. Hypomagnesemia E83.42 MAGNESIUM BLD Well replaced 9. Contusion of right hip, sequela S70.01XS Able to walk without cane now after inpatient rehab at TCU at [facility]. Bruising still resolving.Doing well overall Above issues addressed with patient. Patient involved in shared decision making for management of medical issues. History and medications reviewed. Epic updated as needed Refills and/or prescriptions taken care of and meds adjusted as indicated after reviewed history, exam and labs. Health Maintenance reviewed. Updated record and/or ordered tests as recorded. Encouraged on efforts at healthy diet and regular exercise and adequate sleep. Will see if able to control sugars without Metformin and if stopping the med helps with bowels. See patient instructions. Encouraged adequate fluids daily plus drink water prior to labs since stops drinking water hours before bedtime and has not been drinking much fluids prior to getting labs. Noted that does not have proteinuria on last UACR in December 2022. Hold off on SGLT2 given benefits and risks not weighing in favor of taking the med at this time. Adjustments in meds and supplements as noted above and patient instructions. Further evaluation and treatment as indicated. Noted that continues to follow up at [facility] but has not seen occupational therapist's assistant for a while since the ones she was scheduled with left. Works well with Severino. I spent a total of 38 minutes on the date of the service which included preparing to see the patient, [id number] patient care, completing clinical documentation, performing a medically appropriate examination, counseling and educating the patient/family/caregiver, ordering medications, tests, or p rocedures, independently interpreting results (not separately reported), and communicating results to the patient/family/caregiver. Jose De Jesus Harrington MD [facility]* Diagnosis Type 2 diabetes mellitus with stage 3a chronic kidney disease, without long-term current use of insulin (HCC)- Primary Hordeolum externum of left upper eyelid Hordeolum externum Vitamin D deficiency Unspecified vitamin D deficiency Acquired hypothyroidism Unspecified hypothyroidism Alternating constipation and diarrhea Other symptoms involving digestive system Hypercalcemia Essential hypertension Unspecified essential hypertension Hypomagnesemia Disorders of magnesium metabolism Contusion of right hip, sequela documented in this encounter [facility] History of Present illness Narrative* Severino Healy RN - 10/14/2023 5:03 PM EST pcp agrees with information PATIENT NOTIFIED OF INFORMATION * Severino Healy RN - 10/14/2023 3:12 PM EST patient had inr completed at [facility] patients inr is 3.5 (patients inr range is 2.0-3.0) patient is currently taking 7.5mg Thurs and 5mg all other days patients last dose change was on 03/14/23 due to a high level of 3.6 (dose at that time was 7.5mg Fri,Fri and 5mg all other days) patient has had no changes in medication and no missed doses and no change in diet recommend: patient hold coumadin today and then resume tomorrow with 5mg daily and recheck in 2 weeks due to patient is leaving on vacation on Friday patient has been scheduled for a 2 week follow up inr on 10/31/23 please review and advise on recommendation [facility] History of Present illness Narrative* Herbert Jay, DIRECT SUPPORT STAFF.GARDENING SUPERVISOR - 10/13/2023 12:33 PM EST SUBJECTIVE: Hepatitis B Vaccine(1 of 3 - Risk 3-dose series) Never done RSV Vaccine(1 - 1-dose 60+ series) Never done HPI Yobani Reid is a 78 year old female. PMH significant for ACTIVE PROBLEM LIST Essential Hypertension Mixed Hyperlipidemia Postmenopausal Atrophic Vaginitis Acquired Hypothyroidism Unspecified Urinary Incontinence Chronic Rhinitis Coronary Atherosclerosis Postsurgical Percutaneous Transluminal Coronary Angioplasty Status Stage 3a Chronic Kidney Disease (Hcc) Circumscribed Scleroderma Class 3 Severe Obesity Due to Excess Calories Without Serious Comorbidity With Body Mass Index (Bmi) of 40.0 to 44.9 in Adult (Hcc) Plantar Fasciitis, Bilateral Type 2 Diabetes Mellitus With Stage 3a Chronic Kidney Disease, Without Long-Term Current Use of Insulin (Hcc) nursing home current use of 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 History of Pulmonary Embolus (Pe) Hypertensive Kidney Disease With Stage 3a Chronic Kidney Disease (Hcc) Vitamin D Deficiency Hypomagnesemia Presents today for hospital discharge follow-up. She was admitted September 26, 2023, discharged October 08, 2023. She was admitted for right lower extremity contusion. She came into the hospital via EMS after sustaining a fall 3 hours prior to arrival when she was out walking the neighbors dog. She had right hip and right femur pain after the fall. X-rays were negative for fracture.She was admitted to rehab unit for daily rehab strengthening prior to discharge home. She reports doing well at [facility] rehab facility, felt they did a very good job for her. Sleep study completed on October 09, 2023. Completed at [facility]. Notes could not tolerate mask on her face at her appointment. Has not treated PATRICIA before. She was discharged to outpatient physical therapy at [facility]. Today reports feeling improved. Using cane at home. OK on one level at home, 3 steps in house. Occasional constipation. She notes taking fosinopril just once a day not twice a day since discharge home. She reports taking warfarin 5mg 5 days a week and 7.5 mg 2 days/week. No reported bleeding difficulties. Due for recheck in Coumadin clinic. She has an upcoming cruise coming up through the [employer]. Review of Systems Constitutional: Negative. Respiratory: Negative. Endocrine: Negative. Musculoskeletal: Positive for arthralgias, back pain and gait problem. Objective BP 125/68 Pulse 83 Resp 16 Wt 113.9 kg (251 lb) BMI 43.77 kg/m Physical Exam Vitals and nursing note reviewed. Constitutional: Appearance: Normal appearance. HENT: Head: Normocephalic and atraumatic. Eyes: Conjunctiva/sclera: Conjunctivae normal. Neck: Thyroid: No thyromegaly. Vascular: Normal carotid pulses. No JVD. Cardiovascular: Rate and Rhythm: Normal rate and regular rhythm. Pulses: Carotid pulses are 2+ on the right side and 2+ on the left side. Radial pulses are 2+ on the right side and 2+ on the left side. Heart sounds: Normal heart sounds. Pulmonary: Effort: Pulmonary effort is normal. Breath sounds: Normal breath sounds. Abdominal: General: Bowel sounds are normal. Palpations: Abdomen is soft. Musculoskeletal: Lumbar back: Tenderness present. Right lower leg: No edema. Left lower leg: No edema. Skin: General: Skin is warm and dry. Neurological: General: No focal deficit present. Mental Status: She is alert and oriented to person, place, and time. ALLERGIES Allergen Reactions Adhesive Tape (Herminia* Other: See Comments Burning and redness where tape touches skin Amoxicillin Rash Ampicillin Rash Niacin Rash flushing Penicillins Rash Sulfa (Sulfonamide * Rash Medications Fenofibrate (LOFIBRA) 160 mg tablet Take 1 tablet by mouth once daily. atenolol (TENORMIN) 25 mg tablet Take 1 tablet by mouth once daily. fosinopril sodium (MONOPRIL) 40 mg tablet Take 1 tablet by mouth once daily. metFORMIN ER (GLUCOPHAGE XR) 500 mg 24 hr tablet Take 1 tablet by mouth once daily. With meal isosorbide mononitrate ER (IMDUR) 30 mg 24 hr tablet Take 1 tablet by mouth once daily. levothyroxine (SYNTHROID) 112 mcg tablet Take 1 tablet by mouth once daily. atorvastatin (LIPITOR) 40 mg tablet Take 1 tablet by mouth daily at bedtime. For cholesterol. warfarin (COUMADIN) 5 mg tablet 5mg Mon,Wed and 7.5mg all other days or as directed solifenacin (VESICARE) 5 mg tablet Take 5 mg by mouth once daily. hydrocortisone 2.5 % ointment Apply 1 application to affected area twice daily. warfarin (COUMADIN) 5 mg tablet Take 5 mg Mon, Wed and 7.5 mg all other days or as directed blood sugar diagnostic (BLOOD GLUCOSE TEST) test strip Easy Max Test blood sugar(s) one time daily and as needed. Dx: Type 2 DM - Controlled E11.22 N18.3 Insulin: No Blood-Glucose Meter monitoring kit Glucose Meter of Choice - Kit - Dx: Other DM Code E11.22 N18.3 nitroglycerin sublingual (NITROQUICK) 0.4 mg SL tablet Dissolve 1 tablet under the tongue as needed. DISSOLVE ON TONGUE FOR CHEST PAIN. IF NO PAIN RELIEF, CALL 911 meclizine (ANTIVERT) 25 mg tab Take 1 tablet by mouth every 6 hours as needed (dizziness). (prescription given from ER) magnesium oxide (MAG-OX) 400 mg tablet Take 2 tablets by mouth twice daily. Lancets lancets Use as instructed--Check sugars up to once daily. DX: E11.9, Not insulin requiring aspirin(ECOTRIN LOW STRENGTH 81 MG TAB) Take one(1) tablet daily. oxymetazoline hcl(AFRIN SINUS NO DRIP 0.05 % NASAL MIST) as necessary PAST MEDICAL HISTORY Diagnosis Date Acute appendicitis 05/11/14 Allergic rhinitis, cause unspecified Allergic rhinitis CKD (chronic kidney disease) 02/23/2010 Coronary atherosclerosis of unspecified type of vessel, eyak or graft 10/24/2009 Esophageal reflux Gastroesophageal reflux Impaired fasting glucose 11/13/2005 Mixed hyperlipidemia Hyperlipidemia Musculoskeletal disorder of the masseter 08/27/2010 hypertrophy, from chronic bruxism Other pulmonary embolism without acute cor pulmonale (HCC) 05/08/2018 PE following surgery [facility] Overactive bladder Peptic ulcer, unspecified site, unspecified as acute or chronic, without mention of hemorrhage, perforation, or obstruction Peptic ulcer disease Postmenopausal atrophic vaginitis Atroph. vaginitis/post-men. Postsurgical percutaneous transluminal coronary angioplasty status 12/15/2009 Snoring Type II or unspecified type diabetes mellitus without mention of complication, not stated as uncontrolled 02/21/2014 Unspecified essential hypertension Essential hypertension Unspecified hypothyroidism Hypothyroidism Unspecified urinary incontinence urge Social History Tobacco Use Smoking status: Former Packs/day: 1.00 Years: 10.00 Additional pack years: 0.00 Total pack years: 10.00 Types: Cigarettes Quit date: 12/01/1969 Years since quittin.9 Smokeless tobacco: Never Substance Use Topics Alcohol use: Yes Comment: Rarely Drug use: No INR (POCT) Date Value Ref Range Status 09/19/2023 3.2 (H) 0.8 - 1.2 Final Hemoglobin A1C (%) Date Value 09/01/2023 6.5 12/18/2021 6.2 ASSESSMENT/PLAN: 1. Contusion of right hip, subsequent encounter - ICD9: V58.89, 924.01, ICD10: S70.01XD (primary diagnosis) 2. Debility - ICD9: 799.3, ICD10: R53.81 She reports doing well since discharge home from [facility] rehab. She has outpatient PT scheduled at [facility]. 3. Pulmonary embolism without acute cor pulmonale, unspecified chronicity, unspecified pulmonary embolism type (HCC) - ICD9: 415.19, ICD10: I26.99 Continues on chronic OAC without bleeding difficulties. Due for recheck INR, can reschedule with Coumadin clinic. Herbert Jay, DIRECT SUPPORT STAFF.GARDENING SUPERVISOR Medical Decision Making: Problems: Low: Acute, uncomplicated illness or injury Data: Unique source(s) for external note(s) reviewed: 1 Unique test result(s) reviewed: 3+ Risk: Moderate: Drug management Medical Decision Making Level: 4 - Moderate documented in this [facility]11-[facility]23 Discharge summary Author Bobby Melo [facility] October 08, 2023 7:54pm Note Date/Time October 08, 2023 7 :48pm [facility] Medical Records Department [facility] [place] [address] Discharge Summary 10/08/231946 MR#: [id number] Acct: [id number] Name: YOBANI REID Rep #:[id number] : 1945 78 From: Bobby Alejo MD PCP: Dr. Jose De Jesus Harrington MD Status:AD IN Location: [place] [address] Providers Date of Admission: 09/26/23 Primary Care Physician: Dr. Jose De Jesus Harrington MD Reason For Visit: RIGHT HIP CONTUSION/FALL Diagnosis Discharge Diagnosis (1) Debility: Status: Acute Code(s): R53.81 - Other malaise (2) Obstructive sleep apnea: Status: Suspected Code(s): G47.33 - Obstructive sleep apnea (adult) (pediatric) (3) Fall: Status: Acute Code(s): W19.XXXA - Unspecified fall, initial encounter Qualifiers: Encounter type: initial encounter Qualified Code(s): W19.XXXA - Unspecified fall, initial encounter (4) Leg pain, right: Status: Acute Code(s): M79.604 - Pain in right leg (5) Contusion, hip and thigh: Status: Acute Code(s): S70.00XA - Contusion of unspecified hip, initial encounter; S70.10XA - Contusionof unspecified thigh, initial encounter Qualifiers: Encounter type: subsequent encounter Laterality: right Qualified Code(s): S70.01XD - Contusion of right hip, subsequent encounter; S70.11XD - Contusion of right thigh, subsequent encounter (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: Status: Chronic Code(s): Z79.01 - nursing home (current) use of 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s (7) Hypothyroidism: Status: Chronic Code(s): E03.9 - Hypothyroidism, unspecified Qualifiers: Hypothyroidism type: acquired Qualified Code(s): E03.9 - Hypothyroidism, unspecified (8) Presence 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: Status: Chronic Code(s): Z95.5 - Presence of coronary angioplasty implant and graft (9) Essential hypertension: Status: Chronic Code(s): I10 - Essential (primary) hypertension (10) Mixed hyperlipidemia: Status: Chronic Code(s): E78.2 - Mixed hyperlipidemia (11) Overactive bladder: Status: Acute Code(s): N32.81 - Overactive bladder (12) History of pulmonary embolism: Status: Acute Code(s): Z86.711 - Personal history of pulmonary embolism Plan 78 year old female with below past medical history hospitalized for fall, right lower extremity contusion, admitted to for 3 hours daily rehabilitation, strengthening, prior to discharge home. * Debility - PT/OT> * Pain - Sophia 5/325mg 1 tablet 0700, 2 tablets 2200, 1 tablet q6h prn. * Bowel - Senna/colace 2 tablets bid, Dulcolax 10mg pr x 1 prn, MOM 30ml po x 1 prn. * DVT prophylaxis - on coumadin. * Coronary artery disease, stent - Atenolol 25mg daily, Lisinopril 10mg qhs, Imdur 30mg daily, Aspirin 81mg qhs, NTG 0.4mg q5m prn. * Hyperlipidemia - Atorvastatin 40mg qhs, Tricor 145mg daily. * Rash - HC 2.5% cream topical bid prn. * Hypothyroidism - Levothyroxine 112mcg daily. * Tinea Corporis - Miconazole topical bid. * Overactive bladder - Tolterodine 2mg daily. * History of pulmonary embolism - coumadin 5mg 5 days/week, 7.5mg 2 days/week, monitor INR. * Sleep apnea - Discharge to sleep lab 10/09/2023 for sleep study. Medications at Discharge Home Medications aspirin 81 mg chewable tablet 81 mg PO QHS hearth 05/10/14 levothyroxine 112 mcg tablet 112 mcg PO DAILY thyroid 05/10/14 nitroglycerin 0.4 mg sublingual tablet 0.4 mg sublingual Q5M PRN Chest Pain 05/10/14 fenofibrate 160 mg tablet 160 mg PO DAILY cholesterol 09/14/19 magnesium oxide 400 mg (241.3 mg magnesium) tablet 800 mg PO BID suppliment 10/27/19 atenolol 25 mg tablet 25 mg PO DAILY blood pressure 07/10/20 atorvastatin 40 mg tablet 40 mg PO QHS cholestorol 07/10/20 hydrocortisone 2.5 % topical cream 1 applic topical BID PRN Itching 07/10/20 isosorbide mononitrate 30 mg tablet,extended release 24 hr 30 mg PO DAILY heart #90 tabs 08/10/20 warfarin 5 mg tablet 5 mg PO SUTHFRSA blood thinner 04/24/22 solifenacin 5 mg tablet 5 mg PO DAILY bladder 07/18/22 fosinopril 40 mg tablet 40 mg PO BID this is a dose increase #60 tabs 09/01/23 hydrocodone-acetaminophen 5-325mg 5mg-325mg 1 tab PO Q6H PRN PRN Pain 3 days #10TABLETS 09/25/23 warfarin 7.5 mg tablet 7.5 mg PO MOTUWE blood thinner 09/26/23 hydrocodone-acetaminophen 5-325mg 5mg-325mg 1 tab PO 0700 7 days #7 tabs 10/08/23 hydrocodone-acetaminophen 5-325mg 5mg-325mg 2 tab PO 2200 7 days #14 tabs 10/08/23 Hospital Course Operations None Procedures None Summary of Care Provided Minutes Spent on Discharge: 35 Hospital Course: 78 year old female with below past medical history hospitalized for fall, right lower extremity contusion, admitted to for 3 hours daily rehabilitation, strengthening, prior to discharge home. Discharge home alone 10/09/2023, GLIIF PT. Physical Exam Const alert General Appearance: cooperative HEENT normocephalic Eyes PERRL and EOMs intact bilaterally Neck supple, no JVD and no carotid bruits Resp normal respiratory effort, normal air movement and clear to auscultation bilaterally Cardio regular rate and regular rhythm GI normal to inspection, nondistended, normoactive bowel sounds, non-tender and non-distended Extremity normal capillary refill General Extremity: Negative for edema Skin no rashes or lesions noted General Skin Exam: no breakdown Psych affect normal Appearance: appropriate Weight / BMI Weight Weight: 113.3 kg Body Mass Index (BMI) 42.8 ABG / Lab / Microbiology Data 10/04/23 07:21 10/06/23 05:13 Microbiology: Microbiology 10/03/23 18:00 Stool Stool Occult Blood (ROGELIO) - Final 09/28/23 08:40 Stool Stool Lactoferrin - Final Indicators for Scoring Admitted with or Primary Diagnosis of CVA/Stroke: No Hx of CVA/Stroke: No D/C Instructions Discharge Diet: No restrictions Discharge Activity: Return to Normal Activity, May Shower and Use Walker Weight Bearing Status: Weight bearing as tolerated Call your doctor if you observe: Fever of 101 or Higher, Inability to urinate, Inability to have a bowel movement, Shortness of breath, Dizziness, Fainting spells, Swelling in the ankles, Chest pain and Uncontrolled pain Additional Instructions: Discharge home alone 10/09/2023, GLIIF PT. Meaningful Use Info Meaningful Use Diagnoses (Choose all that apply): None applicable Discharge Plan Admission Admit Date/Time: 09/26/23 13:10 Primary Reason for Your Visit: Debility. Attending Provider: Jennifer Black Primary Care Provider: Jose De Jesus Harrington Instructions Additional Instructions / Restrictions: Discharge home alone 10/09/2023, GLIIF PT. Discharge to sleep lab for sleep study, then home. Discharge Orders/Prescriptions Prescriptions: New hydrocodone-acetaminophen 5-325 mg Tablet 2 tab PO 2200 7 Days Qty: 14 0RF hydrocodone-acetaminophen 5-325 mg Tablet 1 tab PO 0700 7 Days Qty: 7 0RF Continued fenofibrate 160 mg tablet 160 mg PO DAILY hydrocortisone 2.5 % cream 1 applic TOPICAL BID PRN (Reason: Itching) atorvastatin 40 mg tablet 40 mg PO QHS atenolol 25 mg tablet 25 mg PO DAILY nitroglycerin 0.4 MG tablet 0.4 mg SUBLINGUAL Q5M PRN (Reason: Chest Pain) Patient Comments: heart levothyroxine 112 MCG tablet 112 mcg PO DAILY Patient Comments: syhtroid aspirin 81 MG tablet,chewable 81 mg PO QHS Patient Comments: heart solifenacin 5 mg tablet 5 mg PO DAILY warfarin 7.5 mg tablet 7.5 mg PO MOTUWE hydrocodone-acetaminophen 5-325 mg tablet 1 tab PO Q6H PRN PRN (Reason: Pain) 3 Days Qty: 10 0RF magnesium oxide 400 mg (241.3 mg magnesium) tablet 800 mg PO BID Hold Instructions: Resume on 10/01/23. Patient Comments: magnesium isosorbide mononitrate 30 mg tablet extended release 24 hr 30 mg PO DAILY Qty: 90 3RF warfarin 5 mg tablet 5 mg PO SUTHFRSA Protocol: Dose Management Protocol Text: Patient Instructed to take: warfarin 5 mg (1 Tab) on MELISSA, TH, FR, SA warfarin 5 mg (1.5 Tabs) on MO, , WE Rx Instructions: Current dose 7.5 mg 2 days per week, 5 mg all others. Managed by Dr. Harrington fosinopril 40 mg tablet 40 mg PO BID Qty: 60 11RF Hold Instructions: Resume on 10/01/23. Discontinued amlodipine 5 mg tablet 5 mg PO DAILY Qty: 30 11RF Referrals / Follow Up: Sleep, Study [Other] - 10/09/23 8:00 pm (Sleep study at D/c 8pm ) Jose De Jesus Harrington MD [Primary Care Provider] - 10/13/23 1:00 pm Disposition Disposition (needs filled in before D/C Order can be placed): Home, Self Care 10/08/231953 <Electronically signed by Bobby Alejo MD> Cosigner Signature (if applicable): CC: Dr. Jose De Jesus Harrington MD; Dr. Bobby Alejo MD~ Signed [facility] Work Phone: 1(634) 107-410711-07-2023 Progress note Author [facility] October 07, 2023 9:53am Note Date/Time October 07, 2023 9 :53am [facility] Medical Records Department [address] [place] [id number] Progress Note 10/07/23 0944 MR#: [id number] Acct: [id number] Name: YOBANI REID Rep #:[id number] : 1945 78 From: oBbby Alejo MD PCP: Dr. Jose De Jesus Harrington MD Status:AD M IN Location: [place] [address] Subjective Subjective Patient seen, examined. She is in good spirits. She showed me her right lower extremity contusion, she otherwise has no new problems, concerns, issues, complaints, she is looking forward to going home. Objective Data Objective Data Vital Signs: Vital Signs Temp Pulse Resp BP Pulse Ox O2 Del Method FiO2 98.5 F 69 17 113/50 L 98 Room Air 21 10/06/23 20:17 10/06/23 22:00 10/06/23 22:00 10/06/23 20:17 10/06/23 22:00 10/06/23 22:00 09/30/23 20:10 Oxygen Delivery Method Room Air Weight: 113.3 kg Body Mass Index (BMI) 42.8 Intake & Output: Intake and Output for Last 24 Hours 10/05/23 10/06/23 10/07/23 23:59 23:59 23:59 Intake Total 1490 / 1490 780 / 780 Output Total 580 / 580 650 / 650 Balance 910 / 910 130 / 130 Lab / Micro Data Attestation: I reviewed the patient's lab results. 10/04/23 07:21 10/06/23 05:13 Micro: Microbiology 10/03/23 18:00 Stool Stool Occult Blood (ROGELIO) - Final 09/28/23 08:40 Stool Stool Lactoferrin - Final Physical Exam Const alert General Appearance: cooperative HEENT normocephalic Eyes PERRL and EOMs intact bilaterally Neck supple, no JVD and no carotid bruits Resp normal respiratory effort, normal air movement and clear to auscultation bilaterally Cardio regular rate and regular rhythm GI normal to inspection, nondistended, normoactive bowel sounds, non-tender and non-distended Extremity normal capillary refill Extremity Narrative: Bruising right distal thigh, knee, right lower extremity. General Extremity: Negative for edema Skin no rashes or lesions noted General Skin Exam: no breakdown Psych affect normal Appearance: appropriate Assessment & Plan Assessment/Plan (1) Debility: (2) Obstructive sleep apnea: (3) Fall: QUALIFIERS: Encounter type: initial encounter Qualified Code(s): W19.XXXA - Unspecified fall, initial encounter (4) Leg pain, right: (5) Contusion, hip and thigh: QUALIFIERS: Encounter type: subsequent encounter Laterality: right Qualified Code(s): S70.01XD - Contusion of right hip, subsequent encounter; S70.11XD - Contusion of right thigh, subsequent encounter (6) nursing home current use of 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: (7) Hypothyroidism: QUALIFIERS: Hypothyroidism type: acquired Qualified Code(s): E03.9 - Hypothyroidism, unspecified (8) Presence 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: (9) Essential hypertension: (10) Mixed hyperlipidemia: (11) Overactive bladder: (12) History of pulmonary embolism: PLAN: Plan 78 year old female with below past medical history hospitalized for fall, right lower extremity contusion, admitted to for 3 hours daily rehabilitation, strengthening, prior to discharge home. * Debility - PT/OT> * Pain - Sophia 5/325mg 1 tablet 0700, 2 tablets 2200, 1 tablet q6h prn. * Bowel - Senna/colace 2 tablets bid, Dulcolax 10mg pr x 1 prn, MOM 30ml po x 1 prn. * DVT prophylaxis - on coumadin. * Coronary artery disease, stent - Atenolol 25mg daily, Lisinopril 10mg qhs, Imdur 30mg daily, Aspirin 81mg qhs, NTG 0.4mg q5m prn. * Hyperlipidemia - Atorvastatin 40mg qhs, Tricor 145mg daily. * Rash - HC 2.5% cream topical bid prn. * Hypothyroidism - Levothyroxine 112mcg daily. * Tinea Corporis - Miconazole topical bid. * Overactive bladder - Tolterodine 2mg daily. * History of pulmonary embolism - coumadin 5mg 5 days/week, 7.5mg 2 days/week, monitor INR. * Sleep apnea - Discharge to sleep lab 10/09/2023 for sleep study. Capacity Capacity Assessment Tool Can the patient make a choice & communicate that choice?: Yes Can the patient understand benefits, risks and alternatives?: Yes Can the patient make a logical, rational choice?: Yes Is the choice the patient makes consistent w/ their values?: Yes Is there an impending, emergent risk to the patient?: No Does the patient have an Advance Directive?: Yes Is there a Surrogate Available?: Yes i.e. HCPOA: Yes i.e. close relative (spouse, child, parent, sibling)?: Yes 10/07/23 0953 <Electronically signed by Bobby Alejo MD> Bobby Alejo MD Cosigner Signature (if applicable): CC: ~ Signed [facility] Work Phone: 1(840) 651-651211-06-2023 Progress note Author Jennifer Black [facility] October 06, 2023 4:56pm Note Date/Time October 06, 2023 1 1:36am [facility] Medical Records Department [address] [place] [address] Progress Note 10/06/23 1135 MR#: [id number] Acct: [id number] Name: YOBANI REID Rep #:[id number] : 1945 78 From: Jennifer Black DO PCP: Dr. Jose De Jesus Harrington MD Status:AD M IN Location: [place] [address] Subjective Subjective Pao was seen on team rounds today. Her niece, Moira, was present in the room forrounds. Afebrile VSS-blood pressure is well controlled. Heart rate is within normal limits. Maintaining appropriate oxygen saturation on RA Oral intake is good Discussed with nursing - no problems that need addressed Reviewed the PT/OT notes Medication list reviewed. She is currently getting 5 mg of Vicodin at 0700 mg and 10mg at bedtime and she is sleeping well and denies pain. Will convert to as needed medication at discharge. Pao denies pain. She is not asking for any additional pain medication. She denies chest pain, palpitations, shortness of breath at rest, cough, nausea/vomiting/abdominal pain. She had 2 bowel movements yesterday and none today. She had a small bowel movement and a medium bowel movement on 10 04 and they were both formed. Constipation has resolved. The diarrhea she was having all summer may have beendue to Metformin and it has not been ordered in rehab. BS's have been well controlled off Metformin. Objective Data Objective Data Vital Signs: Vital Signs Temp Pulse Resp BP Pulse Ox O2 Del Method FiO2 97.4 F L 87 18 127/85 H 98 Room Air 21 10/06/23 08:09 10/06/23 08:09 10/06/23 08:09 10/06/23 08:09 10/06/23 08:09 10/06/23 08:09 09/30/23 20:10 Oxygen Delivery Method Room Air Weight: 249 lb 12.54 oz Body Mass Index (BMI) 42.8 Intake & Output: Intake and Output for Last 24 Hours 10/05/23 10/05/23 10/06/23 00:59 23:59 23:59 Intake Total 120 / 120 Output Total Balance 120 / 120 Lab / Micro Data 10/04/23 07:21 10/06/23 05:13 Labs: Laboratory Results - last 24 hr 10/06/23 05:13: PT 31.6 H, INR 3.0, Sodium 140, Potassium 4.4, Chloride 108 H, Carbon Dioxide 28.0, Anion Gap 4 L, BUN 32 H, Creatinine 1.32 H, Estim Creat Clear Calc 31.31, Est GFR (MDRD) Af Amer 50 L, Est GFR (MDRD) Non-Af 42 L, BUN/Creatinine Ratio 24.2 H, Glucose 105, Calcium 9.5 Micro: Microbiology 10/03/23 18:00 Stool Stool Occult Blood (ROGELIO) - Final 09/28/23 08:40 Stool Stool Lactoferrin - Final Physical Exam Const alert, oriented x3 and no apparent distress Constitutional Narrative: Sitting in the recliner at the bedside reading when I entered the room. Looks comfortable. General Appearance: cooperative HEENT normocephalic, head/scalp atraumatic and hearing grossly normal bilaterally Eyes EOMs intact bilaterally, conjunctivae normal and no scleral icterus Eyes Narrative: No mattering of the eyelashes and no discharge from the eyes. Neck supple General: normal visual inspection and trachea midline; Negative for lymphadenopathy Chest Chest: symmetrical chest wall rise Resp normal respiratory effort and clear to auscultation bilaterally Effort and Inspection: able to speak in complete sentences Cardio regular rate, regular rhythm and no gallops Cardio Narrative: Distant heart sounds. She has a soft systolic murmur at the second right intercostal space that radiates to the lower sternal border and apex. GI normal to inspection, nondistended, normoactive bowel sounds, soft to palpation and non-tender GI Narrative: No guarding with palpation. No hepatosplenomegaly. No masses. Back/Spine no CVA tenderness and normal to inspection Extremity no calf tenderness and no pedal edema Extremity Narrative: The extensive bruising on the right lower extremity is resolving. There is no redness and no openings in the skin. General Extremity: Negative for clubbing or cyanosis Skin no jaundice Skin Narrative: She has ecchymosis on the R upper extremity extending from above the elbow to the mid forearm on the lateral flexor area. There is no purulent DC but, there is some serous drainage form the 2 skin tears located within the area of ecchymosis. There is no periwound erythema and no odor. General Skin Exam: no breakdown Rashes: no rashes Neuro oriented x3, CN's II-XII intact bilaterally, no focal motor deficits and no sensory deficits noted Neuro Narrative: abnormal gait due to pain in the R hip to knee area. Sensorium / Orientation: awake and alert Psych thought process normal, cooperative and affect normal Appearance: grossly normal Attitude: calm Activity / Motor Behavior: appropriate eye contact Speech: normal speech Assessment & Plan Assessment/Plan (1) Obstructive sleep apnea: PLAN: Suspected. StopBang score is 6 and she had an abnormal Overnight trendingpulse ox. she is to have a sleep study the night of the 9 post DC from rehab. (2) Debility: (3) Fall: QUALIFIERS: Encounter type: initial encounter Qualified Code(s): W19.XXXA - Unspecified fall, initial encounter (4) Contusion, hip and thigh: QUALIFIERS: Encounter type: subsequent encounter Laterality: right Qualified Code(s): S70.01XD - Contusion of right hip, subsequent encounter; S70.11XD - Contusion of right thigh, subsequent encounter (5) Leg pain, right: (6) nursing home current use of 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: (7) Hypothyroidism: QUALIFIERS: Hypothyroidism type: acquired Qualified Code(s): E03.9 - Hypothyroidism, unspecified (8) GERD (gastroesophageal reflux disease): QUALIFIERS: Esophagitis presence: esophagitis presence not specified Qualified Code(s): K21.9 - Gastro-esophageal reflux disease without esophagitis (9) Essential hypertension: (10) DM2 (diabetes mellitus, type 2): QUALIFIERS: Diabetes mellitus complication status: with circulatory complication Diabetes mellitus complication detail: with other circulatory complications Diabetes mellitus prison insulin use: without prison use Qualified Code(s): E11.59 - Type 2 diabetes mellitus with other circulatory complications (11) Obesity: QUALIFIERS: Obesity type: due to excess calories Obesity classification: adult class 3 (BMI >= 40) Serious obesity comorbidity presence: with serious comorbidity Body mass index: BMI 40.0-44.9 Qualified Code(s): E66.01 - Morbid (severe) obesity due to excess calories; Z68.41 - Body mass index [BMI] 40.0-44.9, adult (12) Supratherapeutic INR: PLAN: Plan 1. Continue therapy 2. The INR is 3.0 today so we will hold Coumadin 1 more day and then restart at 5 mg on Friday, Friday, Friday, Friday, Friday and 7.5 mg on Friday and . 3. Recheck an INR on prior to discharge. Also check a BMP and H&H on . 4. She will discharge to the sleep lab in the evening on 10/09/2023 and go home at 6 AM on 10/10/2023. She will follow-up with pulmonary medicine after the sleep study. 5. I recommended to Pao and Moira that Pao be seen at [facility] for balance training once a week for 4 weeks and then consider joining [facility] for regular exercise. 6. Weight loss was advised. Charges/Coding Visit Charges Inpatient E&M: 91546 Subs Hosp L2 10/06/23 3843 <Electronically signed by Jennifer Black DO> Jennifer Black DO Cosigner Signature (if applicable): CC: ~ Signed [facility] Work Phone: 1(624) 512-956511-04-2023 Progress note Author [facility] October 04, 2023 6:05pm Note Date/Time October 04, 2023 1 2:38pm [facility] Medical Records Department [address] [place] [address] Progress Note 10/04/23 1233 MR#: [id number] Acct: [id number] Name: YOBANI REID Rep #:[id number] : 1945 78 From: Jennifer lBack DO PCP: Dr. Jose De Jesus Harrington MD Status:AD M IN Location: [place] [address] Subjective Subjective Afebrile VSS Maintaining appropriate oxygen saturation on RA Oral intake is good Discussed with nursing - no problems that need addressed. She is incontinent ofurine Reviewed the PT/OT notes - she is getting stronger and ambulating further. Using a WW at [facility]. Minimal pain in the R hip and R leg with ambulation now. Medication list reviewed. All lab drawn this morning was personally reviewed. Hemoglobin is 9.9 today, upfrom 8.8 on 10/01/2023. INR is elevated at 3.4. Would like to maintain between 2.5-3. Hemoccult stool is negative. Pao denies lightheadedness, headache, palpitations, shortness of breath at rest,nausea/vomiting/abdominal pain, dysuria and calf pain. She does have urge urinary incontinence. She has seen Dr. Peters in this for the past and has tried several different drugs. She is not happy with the urge urinary incontinence. She is now on Detrol 2 mg once a day....therapeutic interchange for Solifenacin. Objective Data Objective Data Vital Signs: Vital Signs Temp Pulse Resp BP Pulse Ox O2 Del Method FiO2 97.7 F L 62 18 142/52 H 98 Room Air 21 10/04/23 08:29 10/04/23 08:29 10/04/23 08:29 10/04/23 08:29 10/04/23 08:29 10/04/23 08:29 09/30/23 20:10 Oxygen Delivery Method Room Air Weight: 252 lb 10.396 oz Body Mass Index (BMI) 43.3 Intake & Output: Intake and Output for Last 24 Hours 10/02/23 10/03/23 10/04/23 23:59 23:59 23:59 Intake Total 120 / 120 840 / 840 420 / 420 Balance 120 / 120 840 / 840 420 / 420 Lab / Micro Data 10/04/23 07:21 10/01/23 05:13 Labs: Laboratory Results - last 24 hr 10/04/23 07:21: Hgb 9.9 L, Hct 33.1 L, PT 34.5 H, INR 3.4 Micro: Microbiology 10/03/23 18:00 Stool Stool Occult Blood (ROGELIO) - Final 09/28/23 08:40 Stool Stool Lactoferrin - Final Physical Exam Const alert, oriented x3 and no apparent distress General Appearance: cooperative Resp normal respiratory effort and clear to auscultation bilaterally Effort and Inspection: able to speak in complete sentences Cardio regular rate, regular rhythm and no gallops GI normal to inspection, nondistended, normoactive bowel sounds, soft to palpation and non-tender Extremity no calf tenderness and no pedal edema Extremity Narrative: The extensive bruising on the right lower extremity is resolving. There is no redness and no openings in the skin. 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: (7) Hypothyroidism: QUALIFIERS: Hypothyroidism type: acquired Qualified Code(s): E03.9 - Hypothyroidism, unspecified (8) GERD (gastroesophageal reflux disease): QUALIFIERS: Esophagitis presence: esophagitis presence not specified Qualified Code(s): K21.9 - Gastro-esophageal reflux disease without esophagitis (9) Essential hypertension: (10) DM2 (diabetes mellitus, type 2): QUALIFIERS: Diabetes mellitus complication status: with circulatory complication Diabetes mellitus complication detail: with other circulatory complications Diabetes mellitus terminal system operator insulin use: without detention use Qualified Code(s): E11.59 - Type 2 diabetes mellitus with other circulatory complications (11) Obesity: QUALIFIERS: Obesity type: due to excess calories Obesity classification: adult class 3 (BMI >= 40) Serious obesity comorbidity presence: with serious comorbidity Body mass index: BMI 40.0-44.9 Qualified Code(s): E66.01 - Morbid (severe) obesity due to excess calories; Z68.41 - Body mass index [BMI] 40.0-44.9, adult (12) Supratherapeutic INR: PLAN: Plan 1. Continue therapy 2. Hold Coumadin today 3. Change the Coumadin dosing to 7.5 mg twice a week on Friday and and 5 mg all other days 4. Recheck a PT/INR on Friday along with a BMP. We discussed how balance is affected by neuropathy in the feet, poor vision (tamia at night) and vestibular dysfunction and why using a hand held device for ambulation can improve balance. We also discussed again how regular exercise, increased muscle strength (tamia core strengthening) can improve balance. She she had 2 falls in the past 6 weeks and has had severe pain after the falls. She would like to be referred to [facility] for balance training and muscle strengthening at [place]. She knows she should lose some weight and this would help ambulation as well. Charges/Coding Visit Charges Inpatient E&M: 10830 Subs Hosp L2 10/04/23 1805 <Electronically signed by Jennifer Black DO> Jennifer Black DO Cosigner Signature (if applicable): CC: ~ Signed [facility] Work Phone: 1(347) 106-282011-04-2023 Progress note Author Jennifer [facility] October 04, 2023 5:51pm Note Date/Time October 02, 2023 6 :32pm [facility] Medical Records Department [address] [place] [address] Progress Note 10/02/238 MR#: [id number] Acct: [id number] Name: YOBANI REID Rep #:[id number] : 1945 78 From: Jennifer Black DO PCP: Dr. Jose De Jesus Harrington MD Status:AD M IN Location: [place] [address] Subjective Subjective Afebrile VSS Maintaining appropriate oxygen saturation on RA Oral intake is good Discussed with nursing - no problems that need addressed Reviewed the PT/OT notes Medication list reviewed. Pao denies lightheadedness, vertigo, CP, SOB at rest, SOB with exertion, cough,nausea, vomiting, abd pain, diarrhea, constipation, dysuria, calf pain and ankleswelling. She denies leg cramps today. Progressing very well with physical therapy and is ambulating with very little pain now. She is using a front wheeled walker. Objective Data Objective Data Vital Signs: Vital Signs Temp Pulse Resp BP Pulse Ox O2 Del Method FiO2 97.8 F 75 16 124/55 H 97 Room Air 21 10/02/23 08:28 10/02/23 08:28 10/02/23 08:28 10/02/23 08:28 10/02/23 08:28 10/02/23 08:28 09/30/23 20:10 Oxygen Delivery Method Room Air Weight: 252 lb 10.396 oz Body Mass Index (BMI) 43.3 Intake & Output: Intake and Output for Last 24 Hours 09/30/23 10/01/23 10/02/23 23:59 23:59 23:59 Intake Total 900 / 900 450 / 450 120 / 120 Output Total 1075 / 1075 450 / 450 Balance -175 / -175 0 / 0 120 / 120 Lab / Micro Data 10/04/23 07:21 10/01/23 05:13 Micro: Microbiology 09/28/23 08:40 Stool Stool Lactoferrin - Final Physical Exam Const alert, oriented x3 and no apparent distress General Appearance: cooperative Resp normal respiratory effort and clear to auscultation bilaterally Effort and Inspection: able to speak in complete sentences Cardio regular rate, regular rhythm and no gallops Cardio Narrative: Distant heart sounds. She has a soft systolic murmur at the second right intercostal space that radiates to the lower sternal border and apex. GI normal to inspection, nondistended, normoactive bowel sounds, soft to palpation and non-tender Extremity no calf tenderness and no pedal edema Extremity Narrative: The extensive bruising on the right lower extremity is resolving. There is no redness and no openings in the skin. Skin General Skin Exam: no breakdown Rashes: no rashes Psych thought process normal, cooperative and affect normal Assessment & Plan Assessment/Plan (1) Obstructive sleep apnea: PLAN: Plan 1. Continue therapy 2. Recheck an H&H and a PT/INR in the AM. 3. She has not had a bowel movement so the Hemoccult stool was not collected yet. 4. I think she will be stable for discharge home on Friday with assistance fromher family. 5. Continue with the scheduled dose of hydrocodone in the a.m. and at at bedtime and transition to as needed every 4 hours for breakthrough pain. 6. Discontinue amlodipine because she has mild ankle edema today and her blood pressure is not adequately controlled .... It tends to be high in the morning. We will start lisinopril in place of amlodipine 10 mg nightly. 7. She is scheduled for a sleep study the night of her discharge from rehab. Charges/Coding Visit Charges Inpatient E&M: 92703 Subs Hosp L2 10/04/23 8915 <Electronically signed by Jennifer Black DO> Jennifer Black DO Cosigner Signature (if applicable): CC: ~ Signed [facility] Work Phone: 1(367) 684-164111-02-2023 Progress note Author Jennifer Black [facility] October 02, 2023 6:28pm Note Date/Time October 01, 2023 1 0:58am [facility] Medical Records Department [address] [place] [address] Progress Note 10/01/23 1052 MR#: [id number] Acct: [id number] Name: YOBANI REID Rep #:[id number] : 1945 78 From: Jennifer Black DO PCP: Dr. Jose De Jesus Harrington MD Status:AD M IN Location: [place] [address] Subjective Subjective Afebrile VSS Maintaining appropriate oxygen saturation on RA Oral intake is good Discussed with nursing - no problems that need addressed Reviewed the PT/OT/ST notes Medication list reviewed. All lab drawn this morning was personally reviewed. Hemoglobin is down to 8.8 from 9.9 this past Friday. Sodium is now normal at 138 and the potassium is 4.4. The BUN is 28 with a creatinine of 1.08 and a BUN/creatinine ratio of 26. Hemoglobin A1c is 6. TSH is mildly increased at 4.37 and the free T4 is 1.17. Stool lactoferrin was negative and the quantitative fats in the stool are still pending. Total IgA is within normal limits and the test trans glutamine IgA is less than 2. The diarrhea which she has had all summer has resolved while she has been in the hospital. I suspect the diarrhea may be related to the metformin she was taking twice daily. We will continue to hold. Pao denies lightheadedness, cephalgia, chest pain, shortness of breath at rest, cough, nausea/vomiting/abdominal pain, dysuria and calf pain. She has a lot of bruising in the right leg and it is still sore but she is ambulating much easier. Objective Data Objective Data Vital Signs: Vital Signs Temp Pulse Resp BP Pulse Ox O2 Del Method FiO2 97.9 F 86 18 138/72 H 98 Room Air 21 10/01/23 09:13 10/01/23 09:13 10/01/23 09:13 10/01/23 09:13 10/01/23 09:13 10/01/23 09:13 09/30/23 20:10 Oxygen Delivery Method Room Air Weight: 252 lb 10.396 oz Body Mass Index (BMI) 43.3 Intake & Output: Intake and Output for Last 24 Hours 09/29/23 09/30/23 10/01/23 23:59 23:59 23:59 Intake Total 1263 / 1263 900 / 900 450 / 450 Output Total 900 / 900 1075 / 1075 450 / 450 Balance 363 / 363 -175 / -175 0 / 0 Lab / Micro Data 10/01/23 05:13 10/01/23 05:13 Labs: Laboratory Results - last 24 hr 09/30/23 11:35: POC Glucose 117 H 10/01/23 05:13: WBC 8.6, RBC 3.26 L, Hgb 8.8 L, Hct 29.6 L, MCV 90.8, MCH 27.0, MCHC 29.7 L, RDW Std Deviation 49.9 H, RDW Coeff of Angelina 15.1 H, Plt Count 382, MPV 10.7, PT 30.7 H, INR 2.9, Sodium 138, Potassium 4.4, Chloride 107, Carbon Dioxide 27.0, Anion Gap 4 L, BUN 28 H, Creatinine 1.08 H, Estim Creat Clear Calc38.27, Est GFR (MDRD) Af Amer 63, Est GFR (MDRD) Non-Af 52 L, BUN/Creatinine Ratio 25.9 H, Glucose 102, Hemoglobin A1c 6.0 H, Calcium 9.4, TSH 4.37 H, Free T4 1.17 Micro: Microbiology 09/28/23 08:40 Stool Stool Lactoferrin - Final Physical Exam Const alert, oriented x3 and no apparent distress General Appearance: cooperative Resp normal respiratory effort and clear to auscultation bilaterally Effort and Inspection: able to speak in complete sentences Cardio regular rate, regular rhythm and no gallops Cardio Narrative: Distant heart sounds. She has a soft systolic murmur at the second right intercostal space that radiates to the lower sternal border and apex. GI normal to inspection, nondistended, normoactive bowel sounds, soft to palpation and non-tender Extremity no calf tenderness and no pedal edema Extremity Narrative: The extensive bruising on the right lower extremity is resolving. There is no redness and no openings in the skin. Skin General Skin Exam: no breakdown Rashes: no rashes Psych thought process normal, cooperative and affect normal Assessment & Plan Assessment/Plan (1) Debility: (2) Fall: QUALIFIERS: Encounter type: initial encounter Qualified Code(s): W19.XXXA - Unspecified fall, initial encounter (3) Leg pain, right: (4) Contusion, hip and thigh: QUALIFIERS: Encounter type: subsequent encounter Laterality: right Qualified Code(s): S70.01XD - Contusion of right hip, subsequent encounter; S70.11XD - Contusion of right thigh, subsequent encounter (5) Lumbar strain: QUALIFIERS: Encounter type: subsequent encounter Qualified Code(s): S39.012D - Strain of muscle, fascia and tendon of lower back, subsequent encounter (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 transplanted heart: [place] heart QualifiedCode(s): I25.10 - Atherosclerotic heart disease of [place] coronary artery without angina pectoris (13) Obesity: QUALIFIERS: Obesity type: due to excess calories Obesity classification: adult class 3 (BMI >= 40) Serious obesity comorbidity presence: with serious comorbidity Body mass index: BMI 40.0-44.9 Qualified Code(s): E66.01 - Morbid (severe) obesity due to excess calories; Z68.41 - Body mass index [BMI] 40.0-44.9, adult (14) DM2 (diabetes mellitus, type 2): QUALIFIERS: Diabetes mellitus complication status: with circulatory complication Diabetes mellitus complication detail: with other circulatory complications Diabetes mellitus prison insulin use: without prison use Qualified Code(s): E11.59 - Type 2 diabetes mellitus with other circulatory complications PLAN: Plan 1. Continue therapy 2. Recheck an H&H in a few days. She has rather extensive bruising of the right lower extremity from her fall. Hemoglobin at admission to the hospital was 12. She is normochromic normocytic. RDW is increased mildly. Will check a hemoccult stool. Charges/Coding Visit Charges Inpatient E&M: 92181 Subs Hosp L2 10/02/23 1828 <Electronically signed by Jennifer Black DO> Jennifer Black DO Cosigner Signature (if applicable): CC: ~ Signed [facility] Work Phone: 1(660) 498-294910-31-2023 Progress note Author Jennifer [facility] September 30, 2023 5:48pm Note Date/Time September 30, 2023 3 :58pm [facility] Medical Records Department [address] [facility] [place] [address] Progress Note 09/30/23 1556 MR#: [id number] Acct: [id number] Name: YOBANI REID Rep #:[id number] : 1945 78 From: Jennifer Black DO PCP: Dr. Jose De Jesus Harrington MD Status:AD M IN Location: [place] [address] Subjective Subjective Afebrile VSS Maintaining appropriate oxygen saturation on RA Oral intake is good Blood sugar record was reviewed. Blood sugars are adequately controlled on dietalone for the past few days. She tells me she is taken metformin twice a day for many years however, this was not listed on the confirmed home medications but, it was included in the hospitalist H&P. No need to restart Metformin at this time. The last hemoglobin A1c listed in the EMR was from 2018 and it was 6.1. The highest hemoglobin A1c I have seen in the past 10 years is 6.6. Discussed with nursing - no problems that need addressed Reviewed the PT/OT/ST notes Medication list reviewed. Pao is telling me that her mobility is improving. She is c/o restless legs/leg cramps at night. She has been told in the past that she snores. She gets tiredand falls asleep when she is reading and she also falls asleep watching television. She does feel like her memory is not as sharp as it used to be. She sometimes naps in the afternoon. She has never had a sleep study. She denies any history of atrial fibrillation. Her BMI is 43.4. Her STOP BANG score is 5 or 6........We have not yet measured her neck circumference. Pao denies cephalgia, vertigo, lightheadedness, chest pain, shortness of breath at rest, palpitations, cough, nausea/vomiting, dysuria. Objective Data Objective Data Vital Signs: Vital Signs Temp Pulse Resp BP Pulse Ox O2 Del Method 97.2 F L 61 18 149/69 H 96 Room Air 09/30/23 07:45 09/30/23 07:45 09/30/23 07:45 09/30/23 07:45 09/30/23 07:45 09/30/23 07:45 Oxygen Delivery Method Room Air Weight: 252 lb 10.396 oz Body Mass Index (BMI) 43.3 Intake & Output: Intake and Output for Last 24 Hours 09/28/23 09/29/23 09/30/23 23:59 23:59 23:59 Intake Total 1900 / 2050 1263 / 1263 400 / 400 Output Total 1850 / 2100 900 / 900 600 / 600 Balance 50 / -50 363 / 363 -200 / -200 Lab / Micro Data 09/27/23 06:22 09/27/23 06:22 Labs: Laboratory Results - last 24 hr 09/27/23 06:22: IgA 108, Tiss Transglutamin IgA <2 09/30/23 11:35: POC Glucose 117 H Micro: Microbiology 09/28/23 08:40 Stool Stool Lactoferrin - Final Physical Exam Const alert, oriented x3 and no apparent distress Constitutional Narrative: Sitting in the recliner at the bedside reading when I entered the room. Looks comfortable. General Appearance: cooperative Resp normal respiratory effort, no use of accessory muscles and clear to auscultationbilaterally Effort and Inspection: able to speak in complete sentences Cardio regular rate, regular rhythm, no rub, no gallops and no clicks Cardio Narrative: Distant heart sounds. She has a soft systolic murmur at the second right intercostal space that radiates to the lower sternal border and apex. GI normal to inspection, nondistended, normoactive bowel sounds, soft to palpation and non-tender GI Narrative: No guarding with palpation. No hepatosplenomegaly. No masses. Extremity no calf tenderness and no pedal edema Extremity Narrative: The right upper extremity has a large bruise and skin tear extending from the mid forearm to the mid humeral shaft. There is no purulent discharge, no odor and no periwound erythema. Large superficial varicosities of the LE's. Skin no jaundice Rashes: no rashes Psych thought process normal, cooperative and affect normal Assessment & Plan Assessment/Plan (1) Debility: (2) Fall: QUALIFIERS: Encounter type: initial encounter Qualified Code(s): W19.XXXA - Unspecified fall, initial encounter (3) Leg pain, right: (4) Contusion, hip and thigh: QUALIFIERS: Encounter type: subsequent encounter Laterality: right Qualified Code(s): S70.01XD - Contusion of right hip, subsequent encounter; S70.11XD - Contusion of right thigh, subsequent encounter (5) Lumbar strain: QUALIFIERS: Encounter type: subsequent encounter Qualified Code(s): S39.012D - Strain of muscle, fascia and tendon of lower back, subsequent encounter (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 transplanted heart: [place] heart QualifiedCode(s): I25.10 - Atherosclerotic heart disease of [place] coronary artery without angina pectoris (13) Obesity: QUALIFIERS: Obesity type: due to excess calories Obesity classification: adult class 3 (BMI >= 40) Serious obesity comorbidity presence: with serious comorbidity Body mass index: BMI 40.0-44.9 Qualified Code(s): E66.01 - Morbid (severe) obesity due to excess calories; Z68.41 - Body mass index [BMI] 40.0-44.9, adult (14) DM2 (diabetes mellitus, type 2): QUALIFIERS: Diabetes mellitus complication status: with circulatory complication Diabetes mellitus complication detail: with other circulatory complications Diabetes mellitus prison insulin use: without terminal system operator use Qualified Code(s): E11.59 - Type 2 diabetes mellitus with other circulatory complications PLAN: Plan 1. Continue therapy 2. Recheck a BMP, PT/INR and a CBC in the AM. Also check a TSH and T4 and a HGBA1C. 3. Could it have been the Metformin that was causing the diarrhea? 4. Overnight trending pulse ox 5. She may continue to take the OTC medication for leg cramps as needed. B3 did not work for her in the past and the mag is normal. Charges/Coding Visit Charges Inpatient E&M: 96358 Subs Hosp L2 09/30/23 1748 <Electronically signed by Jennifer Black DO> Jennifer Black DO Cosigner Signature (if applicable): CC: ~ Signed [facility] Work Phone: 1(498) 248-779410-31-2023 Progress note Author Jennifer [facility] [place] September 30, 2023 3:56pm Note Date/Time September 29, 2023 6 :51pm [facility] Medical Records Department [address] [place] [id number] Progress Note 09/29/23 1850 MR#: [id number] Acct: [id number] Name: YOBANI REID Rep #:[id number] : 1945 78 From: Jennifer Black DO PCP: Dr. Jose De Jesus Harrington MD Status:AD M IN Location: [place] [address] Subjective Subjective She was seen on team rounds today. Her niece Moira was present for rounds. Afebrile VSS Maintaining appropriate oxygen saturation on RA Oral intake is good Discussed with nursing - no problems that need addressed Reviewed the PT/OT notes Medication list reviewed. I observed her ambulating in the love with a front wheeled walker today and she was smiling. She tells me her pain is well controlled at this time and she feels she is making progress. She tells me that her pain is in much better control with the scheduling of the pain meds. Pao denies vertigo, lightheadedness, chest pain, cough, shortness of breath, nausea/vomiting/abdominal pain, dysuria and calf pain. Objective Data Objective Data Vital Signs: Vital Signs Temp Pulse Resp BP Pulse Ox O2 Del Method 97.5 F L 62 18 136/70 H 97 Room Air 09/29/23 08:26 09/29/23 08:26 09/29/23 08:26 09/29/23 08:26 09/29/23 08:26 09/29/23 08:26 Oxygen Delivery Method Room Air Weight: 252 lb 10.396 oz Body Mass Index (BMI) 43.3 Intake & Output: Intake and Output for Last 24 Hours 09/27/23 09/28/23 09/29/23 23:59 23:59 23:59 Intake Total 1000 / 1250 1900 / 2050 463 / 463 Output Total 1650 / 1950 1850 / 2100 550 / 550 Balance -650 / -700 50 / -50 -87 / -87 Lab / Micro Data 09/27/23 06:22 09/27/23 06:22 Labs: Laboratory Results - last 24 hr 09/27/23 06:22: IgA 108, Tiss Transglutamin IgA <2 09/28/23 21:31: POC Glucose 118 H 09/29/23 05:20: PT 29.9 H, INR 2.8 09/29/23 06:29: POC Glucose 113 H Micro: Microbiology 09/28/23 08:40 Stool Stool Lactoferrin - Final Physical Exam Const alert, oriented x3, healthy appearing and well nourished Constitutional Narrative: She is sitting in the recliner and she is smiling and laughing. She looks much more comfortable than at admission. General Appearance: cooperative Resp normal respiratory effort, no use of accessory muscles and clear to auscultationbilaterally Effort and Inspection: able to speak in complete sentences Cardio regular rate, regular rhythm, no rub, no gallops and no clicks Cardio Narrative: Distant heart sounds. She has a soft systolic murmur at the second right intercostal space that radiates to the lower sternal border and apex. GI normal to inspection, nondistended, normoactive bowel sounds, soft to palpation and non-tender GI Narrative: No guarding with palpation. No hepatosplenomegaly. No masses. Extremity no calf tenderness and no pedal edema Extremity Narrative: The right upper extremity has a large bruise and skin tear extending from the mid forearm to the mid humeral shaft. There is no purulent discharge, no odor and no periwound erythema. Large superficial varicosities of the LE's. Skin no jaundice Rashes: no rashes Assessment & Plan Assessment/Plan (1) Debility: (2) Fall: QUALIFIERS: Encounter type: initial encounter Qualified Code(s): W19.XXXA - Unspecified fall, initial encounter (3) Leg pain, right: (4) Contusion, hip and thigh: QUALIFIERS: Encounter type: subsequent encounter Laterality: right Qualified Code(s): S70.01XD - Contusion of right hip, subsequent encounter; S70.11XD - Contusion of right thigh, subsequent encounter (5) Lumbar strain: QUALIFIERS: Encounter type: subsequent encounter Qualified Code(s): S39.012D - Strain of muscle, fascia and tendon of lower back, subsequent encounter (6) nursing home current use of 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: (7) Hypothyroidism: QUALIFIERS: Hypothyroidism type: acquired Qualified Code(s): E03.9 - Hypothyroidism, unspecified (8) GERD (gastroesophageal reflux disease): QUALIFIERS: Esophagitis presence: esophagitis presence not specified Qualified Code(s): K21.9 - Gastro-esophageal reflux disease without esophagitis (9) Presence 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: (10) Mixed hyperlipidemia: (11) Essential hypertension: (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 transplanted heart: [place] heart QualifiedCode(s): I25.10 - Atherosclerotic heart disease of [place] coronary artery without angina pectoris (13) Obesity: QUALIFIERS: Obesity type: due to excess calories Obesity classification: adult class 3 (BMI >= 40) Serious obesity comorbidity presence: with serious comorbidity Body mass index: BMI 40.0-44.9 Qualified Code(s): E66.01 - Morbid (severe) obesity due to excess calories; Z68.41 - Body mass index [BMI] 40.0-44.9, adult (14) DM2 (diabetes mellitus, type 2): QUALIFIERS: Diabetes mellitus complication status: with circulatory complication Diabetes mellitus complication detail: with other circulatory complications Diabetes mellitus terminal system operator insulin use: without prison use Qualified Code(s): E11.59 - Type 2 diabetes mellitus with other circulatory complications PLAN: Diet controlled. Not on meds. PLAN: Plan 1. Continue therapy 2. No changes to the drug regimen today 3. I recommend that she consider outpatient therapy at either [facility] or [facility] to strengthen her muscles, tamia the core, and help with balance. She is agreeable to this plan. Charges/Coding Visit Charges Inpatient E&M: 88004 Subs Hosp L2 09/30/23 1556 <Electronically signed by Jennifer Black DO> Jennifer Black DO Cosigner Signature (if applicable): CC: ~ Signed [facility] Work Phone: 1(608) 162-198110-31-2023 History and physical note Author Jennifer San[facility] September 30, 2023 3:51pm Note Date/Time September 29, 2023 6 :50pm [facility] Medical Records Department [address] [place] [address] Post Admission Physician Malena 09/29/23 1849 MR#: [id number] Acct: [id number] Name: YOBANI REID Rep #:[id number] : 1945 78 From: Jennifer Black DO PCP: Dr. Jose De Jesus Harrington MD Status:AD M IN Location: [place] [address] Admission Information Primary Diagnosis:: Debility secondary to a fall from ground-level with severe right hip and leg pain inhibiting her ability to walk. Status Changes from Prescreening?: No changes Identified Actual Problem List:: Falls, Skin Intergrity, Pain, ALteration in Cmfrt, Bowel, Constipation, Alteration in Sleep, Mobility Impaired, Self Care Deficit, Fluid Change-Dehydration and Alteration-Leisure Activ. Potential Problem List:: DVT, Bleeding, Infection, UTI, Aspiration, Falls, Skin Integrity and Depression Risk of Complications DVT: UNA Alexe and - (Continue warfarin) Bleeding: Monitor Lab Values, Nursing to Teach Precautions for anti-coagulation therapy., Wound, if applicable, to be assessed every shift. and Stroke patients assessed for lethargy or change in status. Infection: Clinical Staff to Monitor for S/S of infection: and S/S of infection include fever, redness, warmth, etc. Urinary Tract Infection: Monitor for frequency, burning, discomfort, or incontinence. and Nursing will obtain urine sample for urinalysis and C&S when ordered. Aspiration: Clinical staff will monitor for coughing, drooling, congestion., Speech will evaluate swallowing and dsyphasia. and Nursing will monitor patient swallowing during meals. Falls: Patient will be evaluated for Fall Precautions and Patient will be placedon Fall Precautions as indicated per protocol. Skin Breakdown: Nursing will assess skin daily using assessment tool. and Nursing will place on Skin Breakdown Precautions as indicated. Pain: Clinical staff will assess patient's pain level per protocol., Medicationswill be given, if needed, and the pain level reassessed. and Other methods: Massage, distraction, decrease stimulus, etc. used PRN. Plan of Care Patient requires physician specializing in physical medicine and rehab oversightto provide close medical supervision of rehab issues including: Pain Management,Sleep Problems, Bowel and Bladder, Medical and co-morbidity Management, DVT prophylaxis, Rehabilitation Leadership and Coordination of treatment team Patient needs Physical Therapy: For a minimum of 1 hour and At least 5 out of 7 days Patient needs Physical Therapy to improve:: Mobility, Strengthening, Transfers, Stretching, ROM, Endurance, Stairs, Gait and Balance Patient needs Occupational Therapy: For a minimum of 1 hour and At least 5 out of 7 days Patient needs Occupational Therapy to improve ADL's incl.: Eating, Grooming, Bathing, Dressing, Toileting, Toilet transfers, Community Reintegration, Higher functioning activities, Household tasks, Adaptive Equipment, Splinting and Otheractivities as determined Patient requires 24/ Rehabilitation Nursing for: Pain Issues, Identifying and preventing risk factors, Monitoring and reporting current medical conditions, Assisting with ambulation, transfer, and all ADL's, Teaching patients about disease process and medications, Family teaching, Providing safe environment, Bowel and Bladder Issues, Skin integrity and Medication Management Patient needs Diamond Finishing Supervisor/ Case Management for: Discharge Planning, Arranging Home Equipment or Services and Family Interventions Patient needs Dietary and Nutrition Services for: Adequate Nutrition, Nutritional Supplements and Nutritional Education Goals Patient will remain: free from falls Patient will perform bed mobility at: MOD I level of assist. Patient will complete transfers from bed to chair at: MOD I level of assist. Patient will ambulate: - (150 feet with the least restrictive device) Patient will complete upper body dressing at: MOD I level of assist. Patient will complete lower body dressing at: MOD I level of assist. Patient will complete toileting at: MOD I level of assist. Patient will perform bathing at: MOD I level of assist. Patient will complete grooming at: MOD I level of assist. Patient will complete home management skills at: MOD I level of assist. Patient will achieve: - (1 curb step and 3 regular steps with 1 handrail at mod I to allow access to her vehicle in her home.) Patient will have pain level of: of 3 or less Patient's skin will: remain intact (She currently has a skin tear on the R forearm ) Patient will receive: adequate nutrition. Discharge Planning Pt Prognosis for Sig. Practical Improv. w/in Reasonable Time: Good Estimated Length of stay (days): 14 Anticipated D/C Destination: Home with Outpt Therapy Was Preadmission Assessment Accurate?: Yes 09/30/23 1551 <Electronically signed by Jennifer Black DO> Cosigner Signature (if applicable): CC: ~ Signed [facility] Work Phone: 1(772) 177-705610-31-2023 History and physical note Author Jennifer [facility] September 30, 2023 3:43pm Note Date/Time September 26, 2023 3 :50pm [facility] Medical Records Department [address] [place] [id number] History & Physical Exam 09/26/23 1547 MR#: [id number] Acct: [id number] Name: YOBANI REID Rep #:[id number] : 1945 78 From: Jennifer Black DO PCP: Dr. Jose De Jesus Harrington MD Status:AD M IN Location: [address] [facility] - General General Date of Admission: 09/26/23 Date of Service: 09/26/23 Chief Complaint: Intractable pain RLE post fall, unable to ambulate. HPI Narrative YOBANI REID, is a 78 F YO with a PMH of PE's on 2 different occasions, chronic anticoagulation with Warfarin, HTN, hyperlipidemia, obesity, CAD, PTCA X3 stents, remote tobacco dependence, DM II, hypothyroidism, benign paroxysmal positional vertigo and overactive bladder who presented to the ED at [facility] on 09/25/23 c/o of severe RLE pain after a fall. X-rays of the right hip and pelvis were negative for fracture. She was unable to ambulate and she lives by herself. She was admitted to the hospitalist service and SW was consulted for disposition. She was seen by PT/OT. She could not fully extend or flex the R knee. She required moderate assistance of 2 people to go from supine to sitting. She required minimal to moderate assistance of 1 person to go from sitting to standing and standing caused increased pain. She ambulated 20'X1 andhad severe pain. She was very heavily leaning on the WW. INPT acute rehab was recommended. She was transferred to the acute inpatient rehab unit at [facility] on 09/26/2023 for 3 hours of therapy daily to restore function/independence at or near her level prior to the fall. She has been having falls in the past 6 months onto her knees. She can not kneel due to pain and she is unable to get up if she falls. An x-ray of the left knee in March of this year after a fall showed tricompartmental arthrosis and soft tissue swelling. She has difficulty climbing steps. She tells me that her R knee feels as though it is going to buckle. The pain is worse in the lateral upper thigh and lateral R hip. She denies paresthesias and describes the pain as aching. The pain escalates with weight bearing. The EMR was reviewed personally. INR was 2.7 today and she has been taking alternating 7.5 mg on Friday and Friday with 5 mg on Friday and Friday. She has been having loose liquid stool all summer and she has fecal incontinence. She denies abd pain. She has not had a GI consult or a colonoscopy. [facility] Medical History (Updated 09/30/23 @ 14:[address] Jennifer Black, ) Arthritis Atherosclerotic heart disease of [place] coronary artery without angina pectoris Bladder disease Cardiology follow-up encounter Diabetes DM2 (diabetes mellitus, type 2) Essential hypertension Former smoker GERD (gastroesophageal reflux disease) High cholesterol History of echocardiogram History of gastric ulcer History of pulmonary embolism (~08/2017) History of stress test History of ulceration Hypertension Hypothyroidism Incisional hernia, without obstruction or gangrene Leg cramps nursing home current use of 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 Mixed hyperlipidemia Obesity Post-menopausal Preop cardiovascular exam Presence 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 (10/25/19) Pulmonary embolism (08/2017) RBBB (right bundle branch block) Thyroid disease Wears glasses Home Medications aspirin 81 mg chewable tablet [address] [facility] 05/10/14 [History Last Taken 10/25/19] levothyroxine 112 mcg tablet 112 mcg PO DAILY thyroid 05/10/14 [History Last Taken 10/25/19] nitroglycerin 0.4 mg sublingual tablet 0.4 mg sublingual Q5M PRN Chest Pain 05/10/14 [History Last Taken Unknown] fenofibrate 160 mg tablet 160 mg PO DAILY cholesterol 09/14/19 [History Last Taken 10/25/19] magnesium oxide 400 mg (241.3 mg magnesium) tablet 800 mg PO BID suppliment 10/27/19 [History Last Taken Unknown] atenolol 25 mg tablet 25 mg PO DAILY blood pressure 07/10/20 [History Last Taken Unknown] atorvastatin 40 mg tablet 40 mg PO QHS cholestorol 07/10/20 [History Last Taken Unknown] hydrocortisone 2.5 % topical cream 1 applic topical BID PRN Itching 07/10/20 [History Last Taken Unknown] isosorbide mononitrate 30 mg tablet,extended release 24 hr 30 mg PO DAILY heart #90 tabs 08/10/20 [Rx Last Taken Unknown] warfarin 5 mg tablet 5 mg PO SUTHFRSA blood thinner 04/24/22 [History Last Taken Unknown] solifenacin 5 mg tablet 5 mg PO DAILY bladder 07/18/22 [History Last Taken Unknown] fosinopril 40 mg tablet 40 mg PO BID this is a dose increase #60 tabs 09/01/23 [Rx Last Taken Unknown] amlodipine 5 mg tablet 5 mg PO DAILY blood presure #30 tabs 09/11/23 [Rx Last Taken Unknown] hydrocodone-acetaminophen 5-325mg 5mg-325mg 1 tab PO Q6H PRN PRN Pain 3 days #10TABLETS 09/25/23 [Rx Last Taken Unknown] warfarin 7.5 mg tablet 7.5 mg PO MOTUWE blood thinner 09/26/23 [History Last Taken Unknown] Allergy/AdvReac Type Severity Reaction Status Date / Time adhesive Allergy Rash Verified 09/25/23 17:41 amoxicillin [Amoxicillin] Allergy Rash Verified 09/25/23 17:41 ampicillin Allergy Rash Verified 09/25/23 17:41 cephalexin monohydrate Allergy Rash Verified 09/25/23 17:41 [From Keflex] Penicillins Allergy Rash Verified 09/25/23 17:41 Sulfa (Sulfonamide Allergy Rash Verified 09/25/23 17:41 Antibiotics) Family History Father CAD (coronary artery disease) Mother CVA (cerebral vascular accident) Hypertension Surgical History H/O hernia repair History of appendectomy History of cardiac catheterization History of heart artery stent Presence of coronary angioplasty implant and graft (~10/06/09) S/P cardiac catheterization S/P carpal tunnel release S/P colonoscopy (~05/2013) S/P hysterectomy S/P tonsillectomy S/P trigger finger release Social History (Updated 09/26/23 @ 17:[address] Jennifer Black DO) household members: none housing: house number of children: 0 current occupational status: retired pets and animals: No Smoking Status: Former smoker how long ago did patient quit smokin yrs alcohol intake: current alcohol intake frequency: holidays/special occasions only Alcohol type: wine substance use type: does not use caffeine: No ROS Constitutional Constitutional: Reports weakness; Denies anorexia, change in weight, chills, fatigue, fever(s) or night sweats Eyes Eyes: Denies blurry vision, change in vision, eye pain or loss of vision ENT HEENT: Denies abnormal hearing, dysphagia, headache(s), hearing loss, nasal congestion or sore throat Cardiovascular Cardiovascular: Reports dyspnea on exertion and edema; Denies chest pain, lightheadedness, orthopnea, palpitations, paroxysmal nocturnal dyspnea or syncope Respiratory/Chest Respiratory/Chest: Reports shortness of breath with exertion; Denies cough, dyspnea, shortness of breath at rest or wheezing Gastrointestinal Gastrointestinal: Reports constipation; Denies abdominal pain, diarrhea, dyspepsia, hematemesis, hematochezia, nausea or vomiting Genitourinary Genitourinary: Denies dysuria, hematuria, nocturia, urinary frequency, urinary hesitancy, urinary incontinence or urinary urgency Musculoskeletal Musculoskeletal: Reports arthralgias, difficulty walking, extremity pain and myalgias; Denies back pain, joint pain, joint swelling or neck pain Neurologic Neurologic: Reports disequilibrium; Denies confusion, dizziness, focal weakness,headache(s), paresthesias, seizures or tremor(s) Psychiatric Psychiatric: Denies anxiety, depression, homicidal ideation or suicidal ideation Endocrine Endocrinology: Denies change in body appearance, polydipsia or polyuria Hematologic/Lymphatic Hematologic/Lymphatic: Denies easy bleeding, easy bruising or lymphadenopathy Allergic/Immunologic Allergic/Immunologic: Denies rhinitis, eczemia or asthma Vital Signs Vital Signs Vital Signs: 09/26/23 13:16 09/26/23 14:18 Temperature 97.8 F Temperature Source Temporal Pulse Rate 55 L 55 L Respiratory Rate 16 16 Respiratory Effort Normal Non-Labored Blood Pressure 96/44 L Blood Pressure Mean 61 Blood Pressure Source Manual Blood Pressure Position Sitting Blood Pressure Location Left Arm Pulse Ox 97 Oxygen Delivery Method Room Air Room Air Physical Exam Const alert, oriented x3, healthy appearing and well nourished Constitutional Narrative: Sitting in the recliner with her legs elevated. Denies pain at the present time. She tells me her pain is primarily with weightbearing. Prior to the fallshe was having BL knee pain and she can not kneel. She can not get up when she falls. The Left knee at times feels as though it is going to buckle. General Appearance: cooperative and well kempt HEENT normocephalic, head/scalp atraumatic and hearing grossly normal bilaterally HEENT Narrative: Dry mucous membranes Eyes EOMs intact bilaterally, conjunctivae normal and no scleral icterus Eyes Narrative: No mattering of the eyelashes and no discharge from the eyes. Neck supple General: normal visual inspection and trachea midline; Negative for lymphadenopathy Chest Chest: symmetrical chest wall rise Resp normal respiratory effort, no use of accessory muscles and clear to auscultationbilaterally Effort and Inspection: able to speak in complete sentences Cardio regular rate, regular rhythm, S1 normal heart sound, S2 normal heart sound, no rub, no gallops and no clicks Cardio Narrative: Distant heart sounds. She has a soft systolic murmur at the second right intercostal space that radiates to the lower sternal border and apex. GI normal to inspection, nondistended, normoactive bowel sounds, soft to palpation and non-tender GI Narrative: No guarding with palpation. No hepatosplenomegaly. No masses. Back/Spine no CVA tenderness and normal to inspection Extremity no calf tenderness and no pedal edema Extremity Narrative: The right upper extremity has a large bruise and skin tear extending from the mid forearm to the mid humeral shaft. There is no purulent discharge, no odor and no periwound erythema. Large superficial varicosities of the LE's. General Extremity: Negative for clubbing or cyanosis Skin no jaundice Skin Narrative: She has ecchymosis on the R upper extremity extending from above the elbow to the mid forearm on the lateral flexor area. There is no purulent DC but, there is some serous drainage form the 2 skin tears located within the area of ecchymosis. There is no periwound erythema and no odor. Rashes: no rashes Neuro oriented x3, CN's II-XII intact bilaterally, no focal motor deficits and no sensory deficits noted Neuro Narrative: abnormal gait due to pain in the R hip to knee area. Sensorium / Orientation: awake and alert Psych mental status grossly normal, thought process normal, cooperative, affect normal, denies hallucinations and denies suicidal ideation Appearance: grossly normal Attitude: calm Activity / Motor Behavior: appropriate eye contact Speech: normal speech Results Lab / Micro Data 09/27/23 06:22 09/27/23 06:22 Assessment & Plan Assessment/Plan (1) Debility: (2) Fall: QUALIFIERS: Encounter type: initial encounter Qualified Code(s): W19.XXXA - Unspecified fall, initial encounter (3) Leg pain, right: (4) Contusion, hip and thigh: QUALIFIERS: Encounter type: subsequent encounter Laterality: right Qualified Code(s): S70.01XD - Contusion of right hip, subsequent encounter; S70.11XD - Contusion of right thigh, subsequent encounter (5) Lumbar strain: QUALIFIERS: Encounter type: subsequent encounter Qualified Code(s): S39.012D - Strain of muscle, fascia and tendon of lower back, subsequent encounter (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 transplanted heart: eyak heart QualifiedCode(s): I25.10 - Atherosclerotic heart disease of eyak coronary artery without angina pectoris (13) Obesity: QUALIFIERS: Body mass index: BMI 40.0-44.9 Obesity classification: adult class 3 (BMI >= 40) Obesity type: due to excess calories Serious obesity comorbidity presence: with serious comorbidity Qualified Code(s): E66.01 - Morbid (severe) obesity due to excess calories; Z68.41 - Body mass index [BMI] 40.0-44.9, adult (14) DM2 (diabetes mellitus, type 2): QUALIFIERS: Diabetes mellitus complication detail: with other circulatory complications Diabetes mellitus complication status: with circulatory complication Diabetes mellitus terminal system operator insulin use: without terminal system operator use Qualified Code(s): E11.59 - Type 2 diabetes mellitus with other circulatory complications PLAN: Diet controlled. Not on meds. PLAN: Plan PLAN PT for gait stability OT for ADL's Analgesics as needed Bowel protocol Fall precautions Assess for Anxiety/Depression GI prophylaxis not necessary at this time patient has no nausea and no epigastric pain. DVT prophylaxis -she is on warfarin with a therapeutic INR Follow up with PCP following DC from [facility] AM lab including CMP, CBC, Mag and Phos Pain is not adequately relieved at this time with as needed hydrocodone so we will schedule I tablet at 7 AM, noon and 5 PM and 2 tablets at 10 PM. Wean and convert to as needed as her pain improves. She has had 2 falls at least this past year. I think she should consider a regular exercise program to improve core strength and balance. Recheck an INR on Friday. Charges/Coding Visit Charges Inpatient E&M: 02814 Subs Hosp L2 09/30/23 1545 <Electronically signed by Jennifer Black DO> Cosigner Signature (if applicable): CC: Dr. Jose De Jesus Harrington MD; Dr. Jennifer Black DO~ Signed [facility] Work Phone: 1(820) 556-653610-26-2023 Discharge summary Author Alfredito Bowie [facility] September 25, 2023 6:49pm Note Date/Time September 25, 2023 5 :55pm [facility] Medical Records Department [address] [place] [address] Emergency Department Summary 09/25/23 MR#: [id number] Acct: [id number] Name: YOBANI REID Rep #:[id number] : 1945 78 From: Alfredito Bowie MD PCP: Dr. Jose De Jesus Harrington MD Status:RE G ER Location: ED HPI HPI - Fall History of Present Illness Chief Complaint: Fall Narrative Narrative: 78-year-old female presents via EMS with right hip and femur pain from a fall that she sustained approximately 3 hours ago. She states she was out walking her neighbors dog, when he got a hold of a bone somehow. She was trying to wrestle it away from the dog, and her legs got wrapped up, and she fell and rolled onto her right hip. She called her neighbors who had to help her up. She was able to get into the house, and took Tylenol, but is having increasing right hip pain radiating down towards her knee. She has pain all the way to thelevel of her right knee. She denies hitting her head or loss of consciousness, or other injury. [facility] Medical History Arthritis Atherosclerotic heart disease of eyak coronary artery without angina pectoris Bladder disease Cardiology follow-up encounter Diabetes DM2 (diabetes mellitus, type 2) Essential hypertension Former smoker GERD (gastroesophageal reflux disease) High cholesterol History of echocardiogram History of gastric ulcer History of pulmonary embolism (~08/2017) History of stress test History of ulceration Hypertension Hypothyroidism Incisional hernia, without obstruction or gangrene Leg cramps nursing home current use of 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 Mixed hyperlipidemia Obesity Post-menopausal Presence 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 (10/25/19) Pulmonary embolism (08/2017) RBBB (right bundle branch block) Thyroid disease Wears glasses Home Medications aspirin 81 mg chewable tablet 81 mg PO QHS 05/10/14 [History Last Taken 10/25/19] levothyroxine 112 mcg tablet 112 mcg PO DAILY 05/10/14 [History Last Taken 10/25/19] nitroglycerin 0.4 mg sublingual tablet 0.4 mg sublingual Q5M PRN Chest Pain 05/10/14 [History Last Taken Unknown] meclizine 25 mg tablet 25 mg PO TID PRN PRN Vertigo #20 tabs 10/22/17 [Rx Last Taken Unknown] fenofibrate 160 mg tablet 160 mg PO DAILY 09/14/19 [History Last Taken 10/25/19] magnesium oxide 400 mg (241.3 mg magnesium) tablet 800 mg PO BID 10/27/19 [History Last Taken Unknown] atenolol 25 mg tablet 25 mg PO DAILY 07/10/20 [History Last Taken Unknown] atorvastatin 40 mg tablet 40 mg PO QHS 07/10/20 [History Last Taken Unknown] hydrocortisone 2.5 % topical cream 1 applic topical BID PRN Itching 07/10/20 [History Last Taken Unknown] isosorbide mononitrate 30 mg tablet,extended release 24 hr 30 mg PO DAILY #90 tabs 08/10/20 [Rx Last Taken Unknown] metformin 500 mg tablet,extended release 24 hr 500 mg PO DAILY 04/24/22 [History Last Taken Unknown] warfarin 5 mg tablet 5 mg PO DAILY 04/24/22 [History Last Taken Unknown] solifenacin 5 mg tablet 5 mg PO DAILY 07/18/22 [History Last Taken Unknown] fosinopril 40 mg tablet 40 mg PO BID this is a dose increase #60 tabs 09/01/23 [Rx Last Taken Unknown] amlodipine 5 mg tablet 5 mg PO DAILY #30 tabs 09/11/23 [Rx Last Taken Unknown] hydrocodone-acetaminophen 5-325mg 5mg-325mg 1 tab PO Q6H PRN PRN Pain 3 days #10TABLETS 09/25/23 [Rx Last Taken Unknown] Allergy/AdvReac Type Severity Reaction Status Date / Time adhesive Allergy Rash Verified 09/25/23 17:41 amoxicillin [Amoxicillin] Allergy Rash Verified 09/25/23 17:41 ampicillin Allergy Rash Verified 09/25/23 17:41 cephalexin monohydrate Allergy Rash Verified 09/25/23 17:41 [From [facility]] Penicillins Allergy Rash Verified 09/25/23 17:41 Sulfa (Sulfonamide Allergy Rash Verified 09/25/23 17:41 Antibiotics) Family History Father CAD (coronary artery disease) Mother CVA (cerebral vascular accident) Hypertension Surgical History H/O hernia repair History of appendectomy History of cardiac catheterization History of heart artery stent Presence of coronary angioplasty implant and graft (~10/06/09) S/P cardiac catheterization S/P carpal tunnel release S/P colonoscopy (~05/2013) S/P hysterectomy S/P tonsillectomy S/P trigger finger release Social History Smoking Status: Former smoker how long ago did patient quit smokin yrs alcohol intake: current alcohol intake frequency: holidays/special occasions only Alcohol type: wine substance use type: does not use caffeine: No ROS ROS ED ROS Narrative Constitutional: No fever, no chills. HEENT: No sore throat. No neck pain. No loss of vision. No rhinorrhea. Cardiovascular: No chest pain. No palpitations. No pedal edema. Respiratory: No cough, no shortness of breath. Abdominal: No abdominal pain. No nausea. No vomiting. Genitourinary: No dysuria. No hematuria. Musculoskeletal: No myalgias. Right hip and upper leg pain. Worse with movement. Neurologic: No headaches. No dizziness. No lightheadedness. Skin: No rash. No change in color. Psychiatric: No depression. No anxiety. EXAM Physical Exam Narrative Exam Narrative: Afebrile. Vital signs noted. HEENT: Normocephalic. Atraumatic. PERRL, EOMI. Neck soft and supple. No pointtenderness or step off. Cardiovascular: Regular rate and rhythm. No murmurs, rubs, or gallops appreciated. Respiratory: No tachypnea. Lungs clear to auscultation bilaterally. Gastrointestinal: Abdomen soft, nontender, with normoactive bowel sounds. No rebound or guarding. Neurological: Awake. Alert. Nonfocal, nonlateralizing. Skin: No rash. Normal color. No pallor. Musculoskeletal: No pedal edema. No pain with logrolling of right femur, mild tenderness diffusely right hip and right midshaft femur. EHL intact. Palpable dorsalis pedis pulse, right lower extremity. Range of motion at right knee mildly limited secondary to pain. Flexion and extension mechanism intact. Const Vital Signs: 09/25/23 17:41 09/25/23 17:44 09/25/23 17:44 Temperature 97.7 F L Temperature Source Oral Pulse Rate 58 L 60 Respiratory Rate 16 16 Respiratory Effort Normal Respiratory Depth Normal Respiratory Pattern Normal Blood Pressure 169/68 H 169/89 H Blood Pressure Mean 101 115 Pulse Ox 100 100 100 Oxygen Delivery Method Room Air Room Air Room Air MDM MDM MDM Narrative Medical decision making narrative: Patient had already received fentanyl 100 mcg and Zofran from EMS. X-rays were obtained of the right hip and pelvis along with the right femur in 2 views. Concern is for hip fracture versus hip contusion. X-rays of the right femur in 2 views, and of the pelvis were obtained and interpreted by myself independently. There is no evidence of an acute fracture. I reviewed the radiology report which confirms my independent interpretation. At this point intime, her niece is at the bedside and had brought over a walker to help the patient ambulate at home. As the patient has multiple comorbidities she will begiven 10 tablets of Sophia to take for analgesia. I reviewed her OARRS report aswell. At this point in time, I feel she can be discharged safely home with follow-up to her primary care provider. I do not feel she requires observation at this time. Return instructions to the emergency department were reviewed. Disposition is discharged home in stable condition. History & Record Review Additional record(s) reviewed:: Prior ED visit Radiography Diagnostic Testing: Clinical Impression(s) from Imaging Studies Femur X-Ray 09/25/23 17:51 IMPRESSION: Negative right femur x-rays. Electronically Signed: Kun Gonzales MD at 18:19 EDT , Pelvis X-Ray 09/25/23 17:51 IMPRESSION: No evidence of displaced pelvic fracture. Electronically Signed: Kun Gonzales MD at 18:34 EDT , Discharge Plan Triage Chief Complaint: Fall ED Provider: Alfredito Bowie Dx/Rx/DC Orders Clinical Impression: Leg pain, right, Fall, Contusion of hip, right Instructions: ED Mechanical Fall, ED Hip Contusion Prescriptions: New hydrocodone-acetaminophen 5-325 mg tablet 1 tab PO Q6H PRN PRN (Reason: Pain) 3 Days Qty: 10 0RF No Action fenofibrate 160 mg tablet 160 mg PO DAILY hydrocortisone 2.5 % cream 1 applic TOPICAL BID PRN (Reason: Itching) atorvastatin 40 mg tablet 40 mg PO QHS atenolol 25 mg tablet 25 mg PO DAILY metformin 500 mg tablet extended release 24 hr 500 mg PO DAILY nitroglycerin 0.4 MG tablet 0.4 mg SUBLINGUAL Q5M PRN (Reason: Chest Pain) Patient Comments: heart levothyroxine 112 MCG tablet 112 mcg PO DAILY Patient Comments: syhtroid aspirin 81 MG tablet,chewable 81 mg PO QHS Patient Comments: heart meclizine 25 MG tablet 25 mg PO TID PRN PRN (Reason: Vertigo) Qty: 20 0RF solifenacin 5 mg tablet 5 mg PO DAILY magnesium oxide 400 mg (241.3 mg magnesium) tablet 800 mg PO BID Patient Comments: magnesium isosorbide mononitrate 30 mg tablet extended release 24 hr 30 mg PO DAILY Qty: 90 3RF warfarin 5 mg tablet 5 mg PO DAILY Protocol: Dose Management Protocol Text: Patient Instructed to take: warfarin 5 mg (1 Tab) on MELISSA, TH, FR, SA warfarin 5 mg (1.5 Tabs) on , , Rx Instructions: Current dose 7.5 mg 2 days per week, 5 mg all others. Managed by Dr. Harrington fosinopril 40 mg tablet 40 mg PO BID Qty: 60 11RF amlodipine 5 mg tablet 5 mg PO DAILY Qty: 30 11RF Primary Care Provider: Jose De Jesus Harrington Referrals: Jose De Jesus Harrington MD [Primary Care Provider] - 3-5 Days if not improving Disposition Disposition: Home, Self Care What to do if you have Problems For any increased pain, shortness of breath, bleeding, nausea or vomiting, chestpain, or any unexpected problems, contact your Primary Care Provider. Call [facility] ([phone]) or report to the closest Emergency Room. Call 911 if necessary. 09/25/23 6365 <Electronically signed by Alfredito Bowie MD> Cosigner Signature (if applicable): CC: Dr. Jose De Jesus Harrington MD ~ Signed [facility] Work Phone: 1(924) 734-690510-20-2023 History of Present illness Narrative* Severino Healy RN - 09/19/2023 3:47 PM EDT PATIENT NOTIFIED OF INFORMATION * Olimpia Gomez APRN.CNP - 09/19/2023 11:16 AM EDT Agreed. Thanks! * Severino Healy RN - 09/19/2023 10:42 AM EDT patient had inr completed at [facility] patients inr is 3.2 (patients inr range is 2.0-3.0) patient is currently taking 7.5mg Wed and 5mg all other days patients last dose change was on 03/14/23 due to a high level of 3.6 (dose at that time was 7.5mg Wed,Fri and 5mg all other days) patient has had no changes in medication and no missed doses and no change in diet recommend: patient change coumadin dose to 5mg daily and recheck inr in 1 week patient has been scheduled for a 1 week follow up inr on 09/26/23 please review and advise on recommendation [facility] History of Present illness Narrative* Britney Fang PA-C - 09/15/2023 9:07 AM EDT HISTORY AND PHYSICAL Yobani Reid 1945 REFERRING PHYSICIAN: Olimpia Gomez APRN.CNP CHIEF COMPLAINT: Consult (Colonoscopy consult. ) HPI: The patient is a 78 year old female referred for endoscopy. Yobani NOTES a recent change in bowel habits with loose, watery stools. Denies travel, sick contacts, changes in meds, diet or other new exposures. Associated symptoms include increased gas and urgency, has also noted some weight loss. Denies family history of colon issues Yobani has undergone prior endoscopy. Last colonoscopy 07/27/[address] Wilkinson under conscious sedation with removal of benign polyps. 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 vaginitis/post-men. Postsurgical percutaneous transluminal coronary angioplasty status 12/15/2009 Snoring Type II or unspecified type diabetes mellitus without mention of complication, not stated as uncontrolled 02/21/2014 Unspecified essential hypertension Essential hypertension Unspecified hypothyroidism Hypothyroidism Unspecified urinary incontinence urge PAST SURGICAL HISTORY Procedure Laterality Date ADENOIDECTOMY PRIMARY <AGE 14 Adenoidectomy COLONOSCOPY FLX DX W/COLLJ SPEC WHEN PFRMD 02/18/2006 Colonoscopy COLONOSCOPY FLX DX W/COLLJ SPEC WHEN PFRMD 06/14/13 Colonoscopy COLONOSCOPY FLX DX W/COLLJ SPEC WHEN PFRMD 07/27/2019 Colonoscopy DILATION & CURETTAGE DX&/THER NONOBSTETRIC Dilation & curettage ESOPHAGOGASTRODUODENOSCOPY TRANSORAL DIAGNOSTIC 06/14/13 EGD FINGER SURGERY HX Right 10/2016 trigger finger release- [facility] FOOT/TOES SURGERY PROC UNLISTED right foot HYSTEROSCOPY, DIAGNOSTIC (SEPARATE 07/18/05 Dr Mckeon. Fredi LAPAROSCOPIC APPENDECTOMY 05/11/14 LEFT HEART CATH,PERCUTANEOUS Cardiac cath, L heart NEUROPLASTY &/TRANSPOS MEDIAN NRV CARPAL TUNNE Carpal tunnel decomp, Rt wrist PULMONARY FUNCTION TEST 03/21/05 SIGMOIDOSCOPY FLX DX W/COLLJ SPEC BR/WA IF PFRMD 1996 Sigmoidoscopy TONSILLECTOMY PRIMARY/SECONDARY <AGE 14 Tonsillectomy TOTAL ABDOMINAL HYSTERECT W/WO RMVL TUBE OVARY 09/04 Dr Mkie Rai/endometrial hyperplasia w/o dysplasia TRANSCATH STENT INIT VESSEL,PERCUT Transcath stent init vessel percut Current Outpatient Medications Medication Sig aspirin(ECOTRIN LOW STRENGTH 81 MG TAB) Take one(1) tablet daily. atenolol (TENORMIN) 25 mg tablet Take 1 tablet by mouth once daily. atorvastatin (LIPITOR) 40 mg tablet Take 1 tablet by mouth daily at bedtime. For cholesterol. blood sugar diagnostic (BLOOD GLUCOSE TEST) test strip Easy Max Test blood sugar(s) one time daily and as needed. Dx: Type 2 DM - Controlled E11.22 N18.3 Insulin: No Blood-Glucose Meter monitoring kit Glucose Meter of Choice - Kit - Dx: Other DM Code E11.22 N18.3 Fenofibrate (LOFIBRA) 160 mg tablet Take 1 tablet by mouth once daily. fosinopril sodium (MONOPRIL) 40 mg tablet Take 1 tablet by mouth once daily. hydrocortisone 2.5 % ointment Apply 1 application to affected area twice daily. isosorbide mononitrate ER (IMDUR) 30 mg 24 hr tablet Take 1 tablet by mouth once daily. Lancets lancets Use as instructed--Check sugars up to once daily. DX: E11.9, Not insulin requiring levothyroxine (SYNTHROID) 112 mcg tablet Take 1 tablet by mouth once daily. magnesium oxide (MAG-OX) 400 mg tablet Take 2 tablets by mouth twice daily. meclizine (ANTIVERT) 25 mg tab Take 1 tablet by mouth every 6 hours as needed (dizziness). (prescription given from ER) metFORMIN ER (GLUCOPHAGE XR) 500 mg 24 hr tablet Take 1 tablet by mouth once daily. With meal nitroglycerin sublingual (NITROQUICK) 0.4 mg SL tablet Dissolve 1 tablet under the tongue as needed. DISSOLVE ON TONGUE FOR CHEST PAIN. IF NO PAIN RELIEF, CALL 911 oxymetazoline hcl(AFRIN SINUS NO DRIP 0.05 % NASAL MIST) as necessary solifenacin (VESICARE) 5 mg tablet Take 5 mg by mouth once daily. warfarin (COUMADIN) 5 mg tablet Take 5 mg Mon, Wed and 7.5 mg all other days or as directed warfarin (COUMADIN) 5 mg tablet 5mg Mon,Wed and 7.5mg all other days or as directed No current facility-administered medications for this visit. ALLERGIES: Adhesive Tape (Rosins), Amoxicillin, Ampicillin, Niacin, Penicillins, and Sulfa (Sulfonamide Antibiotics) PERSONAL HISTORY: Social History Tobacco Use Smoking status: Former Packs/day: 1.00 Years: 10.00 Additional pack years: 0.00 Total pack years: 10.00 Types: Cigarettes Quit date: 12/01/1969 Years since quittin.8 Smokeless tobacco: Never Substance Use Topics Alcohol use: Yes Comment: Rarely Drug use: No FAMILY HISTORY: FAMILY HISTORY Problem Relation Age of Onset Stroke Mother at age 50 Hypertension Mother other (Eczema) Mother Heart Father mi at age 65 other (Psoriasis) Father Cancer Maternal Grandmother uterine Diabetes Maternal Grandmother Stroke Maternal Grandfather Stroke Paternal Grandmother Heart Paternal Grandfather Coronary Artery Disease Brother sudden , age 62 Heart Brother Slight issue REVIEW OF SYMPTOMS: The review of systems data was entered by the nurse and reviewed by ny Nursing Notes: Aidee Leggett RN 09/15/2023 9:06 AM Signed REVIEW OF SYSTEMS: General: The patient NOTES fatigue, NOTES weight loss, NOTES weight gain, denies feeling hot, and denies feelings of cold. Eyes: The patient NOTES glaucoma, NOTES eye injury/surgery, wears glasses or contacts. Ear/Nose/Throat: The patient NOTES allergies, denies hayfever, NOTES ear infections, and NOTES bloody noses. Cardiovascular: The patient denies chest pain, NOTES heart disease, NOTES high blood pressure,NOTEScardiac stent, denies prior heart attack, denies irregular heart beat, NOTES high cholesterol, denies poor circulation, denies heart failure, other cardiac issues, denies claudication, denies cold feet, denies peripheral arterial stent. Respiratory: The patient denies tuberculosis, denies pneumonia, denies frequent cough, NOTES pulmonary embolism, NOTES shortness of breath, and denies coughing up blood. Gastrointestinal: The patient denies difficulty swallowing, denies acid reflux, NOTES ulcers, denies vomiting, denies jaundice/hepatitis, denies gallbladder problems, denies black or tarry stools, denies hemorrhoids, denies bleeding from rectum, denies diverticulitis, denies constipation, NOTES diarrhea, denies loss of stool control, and NOTES hernias. Kidney/Bladder: The patient denies kidney stones, NOTES urine infections, and denies bloody urine. Skin: The patient denies a history of skin cancer, denies bleeding/changing moles, and denies a history of skin rash. Neurologic: The patient denies a history of epilepsy/convulsions, NOTES headaches, denies head/spinal injuries, and denies stroke/TIA. Psychiatric: The patient denies psychiatric medications, denies depression, and denies voices, denies substance abuse. Endocrine: The patient NOTES thyroid disorders, NOTES diabetes, and denies hormonal problems. Hematologic: The patient NOTES a history of bruising, NOTES bleeding, and denies anemia, NOTES blood clots. Infections: The patient NOTES a history of measles and mumps, denies rheumatic fever, and denies sexually transmitted diseases. Musculoskeletal: The patient denies back pain/injury, NOTES back problems, NOTES sciatica, NOTES knee/foot trouble, denies arthritis, or denies gout. When was patient's last Mammogram screening? 11/02/2018 Last Colonoscopy: 07/27/2019 Aidee Leggett RN I have confirmed and edited as necessary, the PFSH and ROS obtained by others. Britney Fang PA-C PHYSICAL EXAMINATION: General: The patient is 78 year old female, well nourished, well hydrated in no acute distress. Thepatient is oriented to time, place, and person. VITALS: Blood pressure 138/60, pulse 70, temperature 36.4 C (97.6 F), height 161.3 cm (5' 3.5), weight 115.6 kg (254 lb 12.8 oz), SpO2 96 %. Body mass index is 44.43 kg/m . HEENT: Normal cephalic, ataumatic, pupils are equally round, sclera are anicteric, mucous membranesare moist, oropharynx is clear. Neck has no masses, asymmetry or lymphadenopathy. Respiratory: Clear to auscultation and percussion. Normal respiratory excursion and pattern. Cardiac: Examination is regular rate and rhythm. Normal S1/S2 Abdominal exam: Soft, nontender, with no palpable masses. No hepatosplenomegaly. No palpable hernias. Extremities: no clubbing, cyanosis or edema. No adenopathy. LABORATORY VALUES: As Noted RADIOLOGIC STUDIES: As Noted Assessment IMPRESSION: encounter for colonoscopy, change in bowel habits, diarrhea PLAN: I have reviewed my findings with the surgeon. Will plan for upper and lower endoscopy. We discussed the risks and benefits of the planned endoscopy. I have informed the patient that complications can occur including failure to complete the endoscopy and perforation. The patient had the opportunity to ask questions concerning the planned endoscopy. My staff has also explained the procedure to the patient in understandable terms and has given the patient printed material concerning the procedure. The patient freely consents to surgery. I plan to use Miralax bowel preparation Patient to REMAIN on anticoagulation for procedures Will also check stool studies Diagnoses: (Z79.01) On continuous oral anticoagulation (primary encounter diagnosis) (R19.7) Diarrhea, unspecified type (R19.4) Bowel habit changes (Z86.010) History of colon polyps (R63.4) Abnormal weight loss Consultation requested by Olimpia Gomez CNP for an opinion regarding bowel changes. My final recommendations will be communicated back to the requesting physician by way of shared Medical record or letter to requesting physician via US mail. Britney Fang PA-C documented in this [facility]10[facility] Nurse Note* Aidee Leggett RN - 09/15/2023 9:03 AM EDT REVIEW OF SYSTEMS: General: The patient NOTES fatigue, NOTES weight loss, NOTES weight gain, denies feeling hot, and denies feelings of cold. Eyes: The patient NOTES glaucoma, NOTES eye injury/surgery, wears glasses or contacts. Ear/Nose/Throat: The patient NOTES allergies, denies hayfever, NOTES ear infections, and NOTES bloody noses. Cardiovascular: The patient denies chest pain, NOTES heart disease, NOTES high blood pressure,NOTEScardiac stent, denies prior heart attack, denies irregular heart beat, NOTES high cholesterol, denies poor circulation, denies heart failure, other cardiac issues, denies claudication, denies cold feet, denies peripheral arterial stent. Respiratory: The patient denies tuberculosis, denies pneumonia, denies frequent cough, NOTES pulmonary embolism, NOTES shortness of breath, and denies coughing up blood. Gastrointestinal: The patient denies difficulty swallowing, denies acid reflux, NOTES ulcers, denies vomiting, denies jaundice/hepatitis, denies gallbladder problems, denies black or tarry stools, denies hemorrhoids, denies bleeding from rectum, denies diverticulitis, denies constipation, NOTES diarrhea, denies loss of stool control, and NOTES hernias. Kidney/Bladder: The patient denies kidney stones, NOTES urine infections, and denies bloody urine. Skin: The patient denies a history of skin cancer, denies bleeding/changing moles, and denies a history of skin rash. Neurologic: The patient denies a history of epilepsy/convulsions, NOTES headaches, denies head/spinal injuries, and denies stroke/TIA. Psychiatric: The patient denies psychiatric medications, denies depression, and denies voices, denies substance abuse. Endocrine: The patient NOTES thyroid disorders, NOTES diabetes, and denies hormonal problems. Hematologic: The patient NOTES a history of bruising, NOTES bleeding, and denies anemia, NOTES blood clots. Infections: The patient NOTES a history of measles and mumps, denies rheumatic fever, and denies sexually transmitted diseases. Musculoskeletal: The patient denies back pain/injury, NOTES back problems, NOTES sciatica, NOTES knee/foot trouble, denies arthritis, or denies gout. When was patient's last Mammogram screening? 11/02/2018 Last Colonoscopy: 07/27/2019 Aidee Leggett RN documented in [facility]Det[facility]10[facility]23 Miscellaneous Notes* Telephone Encounter - Ayde Desouza RN - 09/09/2023 1:18 PM EDT Patient notified of results and provider's instructions. Patient verbalizes understanding. Ayde Desouza RN documented in this encounterDet[facility]10-02-[facility] History of Present illness Narrative* Olimpia Gomez APRN.KAYLIE - 09/01/2023 11:30 AM EDT SUBJECTIVE Yobani Reid is a 78 year old female here today for a check up on her medical problems. Chief Complaint Patient presents with: Diarrhea: for about 2 months soft and not formed fatigue HPI Yobani Reid is a 78 year old female. Concerns today of some softer stools/diarrhea last couple of months. Watery. No blood, not dark, not tarry, not black in color. Notes some increased gas. Often occurs after eating. Has 2-3 bowel movements per day. Rates as a bristol stool 6-7, prior to this actually had constipation issues. Dr. Wilkinson 2019 last colonoscopy, repeat colonoscopy in 5. No specific food triggers. No nausea, vomiting or heartburn. Feels jitters inside. Feels every where in her body. Sleeping better. More bored lately but not more anxious. Takes magnesium, metformin. Has gallbladder. Her medications were reviewed today and her list is now up to date. Medications Current Outpatient Medications Medication Sig Fenofibrate (LOFIBRA) 160 mg tablet Take 1 tablet by mouth once daily. atenolol (TENORMIN) 25 mg tablet Take 1 tablet by mouth once daily. fosinopril sodium (MONOPRIL) 40 mg tablet Take 1 tablet by mouth once daily. metFORMIN ER (GLUCOPHAGE XR) 500 mg 24 hr tablet Take 1 tablet by mouth once daily. With meal isosorbide mononitrate ER (IMDUR) 30 mg 24 hr tablet Take 1 tablet by mouth once daily. levothyroxine (SYNTHROID) 112 mcg tablet Take 1 tablet by mouth once daily. atorvastatin (LIPITOR) 40 mg tablet Take 1 tablet by mouth daily at bedtime. For cholesterol. solifenacin (VESICARE) 5 mg tablet Take 5 mg by mouth once daily. hydrocortisone 2.5 % ointment Apply 1 application to affected area twice daily. warfarin (COUMADIN) 5 mg tablet Take 5 mg Mon, Wed and 7.5 mg all other days or as directed nitroglycerin sublingual (NITROQUICK) 0.4 mg SL tablet Dissolve 1 tablet under the tongue as needed. DISSOLVE ON TONGUE FOR CHEST PAIN. IF NO PAIN RELIEF, CALL 911 meclizine (ANTIVERT) 25 mg tab Take 1 tablet by mouth every 6 hours as needed (dizziness). (prescription given from ER) magnesium oxide (MAG-OX) 400 mg tablet Take 2 tablets by mouth twice daily. aspirin(ECOTRIN LOW STRENGTH 81 MG TAB) Take one(1) tablet daily. oxymetazoline hcl(AFRIN SINUS NO DRIP 0.05 % NASAL MIST) as necessary warfarin (COUMADIN) 5 mg tablet 5mg Mon,Wed and 7.5mg all other days or as directed blood sugar diagnostic (BLOOD GLUCOSE TEST) test strip Easy Max Test blood sugar(s) one time daily and as needed. Dx: Type 2 DM - Controlled E11.22 N18.3 Insulin: No Blood-Glucose Meter monitoring kit Glucose Meter of Choice - Kit - Dx: Other DM Code E11.22 N18.3 Lancets lancets Use as instructed--Check sugars up to once daily. DX: E11.9, Not insulin requiring No current facility-administered medications for this visit. 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 Stage 3a Chronic Kidney Disease ([facility]) - 02/23/2010 Postsurgical Percutaneous Transluminal Coronary Angioplasty Status - 12/15/2009 Coronary Atherosclerosis - 10/24/2009 Chronic Rhinitis - 06/06/2009 Essential Hypertension Mixed Hyperlipidemia Postmenopausal Atrophic Vaginitis Acquired Hypothyroidism Unspecified Urinary Incontinence Social History Tobacco Use Smoking status: Former Packs/day: 1.00 Years: 10.00 Additional pack years: 0.00 Total pack years: 10.00 Types: Cigarettes Quit date: 12/01/1969 Years since quittin.7 Smokeless tobacco: Never Substance Use Topics Alcohol use: Yes Comment: Rarely Drug use: No Review of Systems Respiratory: Negative. Cardiovascular: Negative. Gastrointestinal: Positive for diarrhea. Negative for abdominal distention, abdominal pain, anal bleeding, blood in stool, nausea, rectal pain and vomiting. OBJECTIVE BP 120/70 Pulse 62 Wt 253 lb (114.8kg) SpO2 97% Physical Exam Vitals and nursing note reviewed. Constitutional: General: She is awake. She is not in acute distress. Appearance: Normal appearance. She is well-developed and well-groomed. She is not ill-appearing, toxic-appearing or diaphoretic. HENT: Head: Normocephalic. Right Ear: External ear normal. Left Ear: External ear normal. Nose: Nose normal. Eyes: General: Vision grossly intact. Conjunctiva/sclera: Conjunctivae normal. Pupils: Pupils are equal, round, and reactive to light. Neck: Vascular: No JVD. Trachea: Trachea normal. Cardiovascular: Rate and Rhythm: Normal rate and regular rhythm. Pulses: Normal pulses. Heart sounds: Normal heart sounds. No murmur heard. Pulmonary: Effort: Pulmonary effort is normal. No accessory muscle usage, prolonged expiration or respiratory distress. Breath sounds: Normal breath sounds. Musculoskeletal: Cervical back: Neck supple. Skin: General: Skin is warm and dry. Capillary Refill: Capillary refill takes less than 2 seconds. Neurological: General: No focal deficit present. Mental Status: She is alert and oriented to person, place, and time. Mental status is at baseline. Psychiatric: Attention and Perception: Attention and perception normal. Mood and Affect: Mood and affect normal. Speech: Speech normal. Behavior: Behavior normal. Behavior is cooperative. Thought Content: Thought content normal. Cognition and Memory: Cognition and memory normal. Judgment: Judgment normal. ASSESSMENT/PLAN: 1. Bowel habit changes - ICD9: 787.99, ICD10: R19.4 (primary diagnosis) Given her change we will have her discuss doing a colonoscopy sooner then 5 years with general surgery. - CONSULT TO GENERAL SURGERY 2. Diarrhea, unspecified type - ICD9: 787.91, ICD10: R19.7 Check labs for possible contributing causes. Discussed probiotic and fiber use. - CBC + DIFF - COMP METABOLIC PANEL - MAGNESIUM BLD - VITAMIN B12 BLOOD - HGB A1C - TSH BLD - CONSULT TO GENERAL SURGERY 3. History of colon polyps - ICD9: V12.72, ICD10: Z86.010 - CONSULT TO GENERAL SURGERY 4. Hypomagnesemia - ICD9: 275.2, ICD10: E83.42 - MAGNESIUM BLD 5. Acquired hypothyroidism - ICD9: 244.9, ICD10: E03.9 - TSH BLD 6. Vitamin D deficiency - ICD9: 268.9, ICD10: E55.9 - VITAMIN D 25 HYDROXY 7. Type 2 diabetes mellitus with stage 3a chronic kidney disease, without long- term current use of insulin (HCC) - ICD9: 250.40, 585.3, ICD10: E11.22, N18.31 - HGB A1C 8. Encounter for therapeutic drug monitoring - ICD9: V58.83, ICD10: Z51.81 - CBC + DIFF - COMP METABOLIC PANEL - MAGNESIUM BLD - VITAMIN B12 BLOOD - HGB A1C - TSH BLD Portions of this note have been entered by ancillary staff. I have reviewed and when necessary edited, so that they are an adequate record of my encounter with this patient Please note that parts of this document were created using voice recognition software and therefore may contain grammatical errors. Patient verbalizes understanding of instructions from today's visit and in agreement with treatmentplan. Questions answered. Agrees to call the office if questions, concerns of issues with acute symptoms not improving or if they worsen. See diagnoses and orders for additional plan(s). Allergies and medications were reviewed, list was updated, and refills given if needed. Past medical, surgical, social, and family history reviewed and updated as appropriate. Encouraged proper diet & exercise as well as compliance with taking medications. Age- appropriate health preventative measures were discussed. Return if symptoms worsen or fail to improve, for Keep next scheduled appointment.. Olimpia Gomez APRN-KAYLIE documented in this encounterDet[facility]09-22-2023 History of Present illness Narrative* Severino Healy RN - 08/22/2023 11:41 AM EDT pcp agrees with information * Severino Healy RN - 08/22/2023 10:24 AM EDT patient had inr completed at [facility] patients inr is 3.0 (patients inr range is 2.0-3.0) patient is currently taking 7.5mg Wed and 5mg all other days patients last dose change was on 03/14/23 due to a high level of 3.6 (dose at that time was 7.5mg Wed,Fri and 5mg all other days) patient has had no changes in medication and no missed doses and no change in diet Advised patient to continue on the same dose(s) and that they would only be contacted regarding dosage and follow up instructions after review with provider, if a change is needed. Written instructions given and patient verbalized understanding. Presently scheduled in 4 weeks (09/19/23) for follow u p INR. documented in this encounterDetwiler [facility]08-17-2023 History of Present illness Narrative* Herbert Jay APRN.CNS - 07/17/2023 11:26 AM EDT Continue with Coumadin dose unchanged and check INR in 1 month * Severino Healy RN - 07/17/2023 10:18 AM EDT patient had inr completed at [facility] patients inr is 2.3 (patients inr range is 2.0-3.0) patient is currently taking 7.5mg Wed and 5mg all other days patients last dose change was on 03/14/23 due to a high level of 3.6 (dose at that time was 7.5mg Wed,Fri and 5mg all other days) patient has had no changes in medication and no missed doses and no change in diet Advised patient to continue on the same dose(s) and that they would only be contacted regarding dosage and follow up instructions after review with provider, if a change is needed. Written instructions given and patient verbalized understanding. Presently scheduled in 1 month (08/21/23) for follow up INR. documented in this encounterDetwiler [facility]07-18-2023 History of Present illness Narrative* Severino Healy RN - 06/17/2023 4:26 PM EDT pcp agrees with information * Severino Healy RN - 06/17/2023 10:38 AM EDT patient had inr completed at [facility] patients inr is 2.8 (patients inr range is 2.0-3.0) patient is currently taking 7.5mg Wed and 5mg all other days patients last dose change was on 03/14/23 due to a high level of 3.6 (dose at that time was 7.5mg Wed,Fri and 5mg all other days) patient has had no changes in medication and no missed doses and no change in diet Advised patient to continue on the same dose(s) and that they would only be contacted regarding dosage and follow up instructions after review with provider, if a change is needed. Written instructions given and patient verbalized understanding. Presently scheduled in 4 weeks (07/17/23) for follow up INR. documented in this encounterDetw[facility]06-29-2023 History of Present illness Narrative* Herbert Jay APRN.CNS - 05/29/2023 3:43 PM EDT Continue with Coumadin dose unchanged and check INR in 3 weeks * Severino Healy RN - 05/29/2023 10:46 AM EDT patient had inr completed at [facility] patients inr is 2.6 (patients inr range is 2.0-3.0) patient is currently taking 7.5mg Wed and 5mg all other days patients last dose change was on 03/14/23 due to a high level of 3.6 (dose at that time was 7.5mg Wed,Fri and 5mg all other days) patient has had no changes in medication and no missed doses and no change in diet Advised patient to continue on the same dose(s) and that they would only be contacted regarding dosage and follow up instructions after review with provider, if a change is needed. Written instructions given and patient verbalized understanding. Presently scheduled in 3 weeks (06/17/23 - due to patie nt has ellen with BILINGUAL INSTRUCTOR also this date) for follow up INR. documented in this encounterDetwiler [facility]06-01-2023 History of Present illness Narrative* Herbert Jay APRN.KINJAL - 05/01/2023 1:28 PM EDT Continue with Coumadin dose unchanged and check INR in 4 weeks * Severino Healy RN - 05/01/2023 10:40 AM EDT patient had inr completed at [facility] patients inr is 2.6 (patients inr range is 2.0-3.0) patient is currently taking 7.5mg Wed and 5mg all other days patients last dose change was on 03/14/23 due to a high level of 3.6 (dose at that time was 7.5mg WedFri and 5mg all other days) patient has had no changes in medication and no missed doses and no change in diet Advised patient to continue on the same dose(s) and that they would only be contacted regarding dosage and follow up instructions after review with provider, if a change is needed. Written instructions given and patient verbalized understanding. Presently scheduled in 4 weeks (05/29/23) for follow up INR. documented in this encounterDetwiler [facility]05-09-2023 Miscellaneous Notes* Telephone Encounter - BENITO Smith - 04/08/2023 2:45 PM EDT 1st attempt to call patient, left voicemail. Romelia Farmer, BENITO April 08, 2023 2:46 PM * Telephone Encounter - Herebrt Jay APRN.CNS - 04/08/2023 1:31 PM EDT OK * Telephone Encounter - Veknat Garcia - 04/05/2023 1:26 PM EDT Can a new bone density order be placed as there is not one in her active request tab that I can schedule from. * Telephone Encounter - Sheri De La Cruz LPN - 04/04/2023 3:22 PM EDT Patient notified of providers message and verbalized understanding. Encounter routed to PSR to assist patient in scheduling BMD * Telephone Encounter - Herbert Jay APRN.CNS - 04/04/2023 3:07 PM EDT See below. Bone density (BMD) needs scheduled if willing * Telephone Encounter - Britney Deleon RN - 04/03/2023 4:43 PM EDT Pt called and is notified of providers message and instructions. Pt voices understanding. Not sure what provider meant by schedule BMD? Pt already has a CMP ordered, so wouldn't need a BMP ordered. Please call Pt back once we know what needs to be ordered. Britney Deleon RN * Telephone Encounter - Herbert Jay APRN.CNS - 04/03/2023 4:24 PM EDT Recommend she stop taking supplemental potassium. Take calcium supplement without potassium. Take calcium supplement every other day instead of daily. Schedule BMD * Telephone Encounter - Britney Deleon RN - 04/02/2023 9:45 AM EDT Pt called and is notified of providers results and instructions. Pt voices understanding. Pt statesher multivitamin has 300 mg of Calcium and 80 mg of K+. Pt reports she drinks 2 20 oz bottles of water a day. She states she will never be able to drink 64 oz of water because she has urinary issues.She states she had tried to drink 64 oz of fluid before and would have to change her clothes 2- 3x aday and was buying more pads than she could afford. She states sometimes the urine would gush out of her and other times it would trickle. Pt states she doesn't drink anything after 8 pm or she will have to get up 3-4 times through the night to use the bathroom. She states the surgery Dr Peters wanted to do that would last around 8 years wasn't covered by Medicare. Pt will come in to get labs drawn. Britney Deleon RN * Telephone Encounter - Herbert Jya APRN.GARDENING SUPERVISOR - 04/01/2023 4:57 PM EDT Please let her know CBC in acceptable range. Metabolic panel shows calcium trending upward. Vitamin D is within normal limits. Check on current supplementation dosing. Normal PTH Appears to need to increase fluid intake, aim for 64 ounces per day. Potassium is a bit elevated. Recommend recheck BMD if willing Recommend checking metabolic panel within the next week or 2. Component Latest Ref Rng & Units 12/17/2022 03/24/2023 WBC 3.70 - 11.00 k/uL 7.50 8.00 RBC 3.90 - 5.20 m/uL 4.74 4.41 Hemoglobin 11.5 - 15.5 g/dL 13.5 12.2 Hematocrit 36.0 - 46.0 % 43.0 40.2 MCV 80.0 - 100.0 fL 90.7 91.2 MCH 26.0 - 34.0 pg 28.5 27.7 MCHC 30.5 - 36.0 g/dL 31.4 30.3 (L) RDW-CV 11.5 - 15.0 % 14.2 14.6 Platelet Count 150 - 400 k/uL 321 440 (H) MPV 9.0 - 12.7 fL 11.3 11.0 Neut% % 61.1 Abs Neut (ANC) 1.45 - 7.50 k/uL 4.89 Lymph% % 23.1 Abs Lymph 1.00 - 4.00 k/uL 1.85 [place]% % 9.5 Abs [place] <0.87 k/uL 0.76 Eosin% % 4.8 Abs Eosin <0.46 k/uL 0.38 Baso% % 0.9 Abs Baso <0.11 k/uL 0.07 Immature Gran % % 0.6 IMMATURE GRANS (ABS) <0.10 k/uL 0.05 NRBC /100 WBC 0.0 Absolute nRBC <0.01 k/uL <0.01 <0.01 DTYPE Auto Protein, Total 6.3 - 8.0 g/dL 7.2 Albumin 3.9 - 4.9 g/dL 4.6 Calcium 8.5 - 10.2 mg/dL 10.5 (H) 10.8 (H) Bilirubin, Total 0.2 - 1.3 mg/dL 0.5 Alkaline Phosphatase 34 - 123 U/L 50 AST 13 - 35 U/L 20 ALT 7 - 38 U/L 14 Glucose 74 - 99 mg/dL 96 106 (H) BUN 7 - 21 mg/dL 21 26 (H) Creatinine 0.58 - 0.96 mg/dL 1.13 (H) 1.41 (H) Sodium 136 - 144 mmol/L 140 141 Potassium 3.7 - 5.1 mmol/L 5.0 5.2 (H) Chloride 97 - 105 mmol/L 105 105 CO2 22 - 30 mmol/L 27 27 Anion Gap 9 - 18 mmol/L 8 (L) 9 eGFR >=60 mL/min/1.73m 51 (L) 39 (L) Cholesterol, Total <200 mg/dL 201 (H) Triglyceride <150 mg/dL 124 HDL Cholesterol >39 mg/dL 52 Non HDL Cholesterol <130 mg/dL 149 (H) Fasting Time hrs 15 VLDL Cholesterol <30 mg/dL 25 TC:HDL Ratio <5.10 3.87 LDL Cholesterol <100 mg/dL 124 (H) LDL:HDL Ratio <2.54 2.38 Creatinine, Ur Random (UCRR) 20.0 - 300.0 mg/dL 95.4 Albumin, Urine Random mg/L <12.0 Albumin/Creat Ratio <30 mg/g <13 Hemoglobin A1C 4.3 - 5.6 % 6.2 (H) 6.3 (H) Estimated Average Glucose mg/dL 131 134 Magnesium 1.7 - 2.3 mg/dL 2.1 Vitamin D 25 Hydroxy 31.0 - 80.0 ng/mL 34.2 33.7 TSH 0.270 - 4.200 mIU/L 2.310 2.040 Free T4 0.9 - 1.7 ng/dL 1.6 PTH, Intact 15 - 65 pg/mL 25 documented in this encounterDetwiler [facility]05-09-2023 Instructions* Patient Instructions* Herbert Jay APRN.CNS - 04/08/2023 1:31 PM EDT BONE MINERAL DENSITY PATIENT INSTRUCTIONS Bone mineral density testing measures the amount of calcium in certain parts of your bones. This information determines how strong your bones are. The test is used to detect osteoporosis, a disease in which the bone's mineral content and density are low, increasing a person's risk of fractures. Thelumbar spine (lower back) and the hip are the skeletal sites usually examined. For the test, remember that: 1. You cannot take this test if you are . 2. Eat a normal diet on the day of the test. 3. Take your medications as you normally would. 4. DO NOT take calcium supplements (such as Tums) for 24 hours before the test. 5. On the day of the test, leave valuables (jewelry or credit cards) at home. 6. The test should be performed prior to oral, rectal or IV contrast studies, or at least 7 days after any of these studies. For the test, you may be asked to wear a hospital gown. You will lie on your back, on a padded table, in a comfortable position. Generally, you can resume your usual activities immediately. documented in [facility] History of Present illness Narrative* Herbert Jay APRN.CNS - 04/03/2023 12:46 PM EDT Continue with Coumadin dose unchanged and recheck INR in 4 weeks * Severino Healy RN - 04/03/2023 11:25 AM EDT patient had inr completed at [facility] patients inr is 2.7 (patients inr range is 2.0-3.0) patient is currently taking 7.5mg Wed and 5mg all other days patients last dose change was on 03/14/23 due to a high level of 3.6 (dose at that time was 7.5mg Wed,Fri and 5mg all other days) patient has had no changes in medication and no missed doses and no change in diet Advised patient to continue on the same dose(s) and that they would only be contacted regarding dosage and follow up instructions after review with provider, if a change is needed. Written instructions given and patient verbalized understanding. Presently scheduled in 4 weeks (05/01/23) for follow up INR. documented in this encounterDet[facility]04-20-[facility]23 History of Present illness Narrative* Herbert Jay APRN.CNS - 03/20/2023 3:34 PM EDT Continue with Coumadin dose unchanged and check INR in 2 weeks * Severino Healy RN - 03/20/2023 1:37 PM EDT patient had inr completed at [facility] patients inr is 2.3 (patients inr range is 2.0-3.0) patient is currently taking 7.5mg Wed and 5mg all other days patients last dose change was on 03/14/23 due to a high level of 3.6 (dose at that time was 7.5mg Wed,Fri and 5mg all other days) patient has had no changes in medication except for coumadin and no uninstructed missed doses and no change in diet Advised patient to continue on the same dose(s) and that they would only be contacted regarding dosage and follow up instructions after review with provider, if a change is needed. Written instructions given and patient verbalized understanding. Presently scheduled in 2 weeks (04/03/23) for follow up INR since this is the first normal reading since dose change documented in this encounterDet[facility]04[facility]14-[facility] History of Present illness Narrative* Severino Healy RN - 03/14/2023 2:37 PM EDT per pcp patient is to hold today and 7.5mg Wed and 5mg all other days PATIENT NOTIFIED OF INFORMATION * Severino Healy RN - 03/14/2023 10:56 AM EDT patient had inr completed at [facility] patients inr is 3.6 (patients inr range is 2.0-3.0) patient is currently taking 7.5mg Wed,Fri and 5mg all other days patients last dose change was on 08/07/22 due to a high level of 3.7 (dose at that time was 10mg Fri,Sun and 7.5mg all other days) patient has had no changes in medication and no missed doses and no change in diet Advised patient that they would be contacted regarding medication dose and when to follow up after information is reviewed by provider. After provider review please contact the patient with information and schedule follow up appointment with coumadin clinic. ok to leave a detailed message if no answer FYI- patient has been scheduled for a 1 week follow up inr on 03/20/23 documented in this encounterDet[facility]04-13-2023 Instructions* Patient Instructions* Herbert Jay APRN.CNS - 03/13/2023 12:41 PM EDT Gently wash your hand and thumb with antibacterial soap and water. Apply mupirocin ointment and cover with gauze. Change dressing daily. Soak the dressing with water if it is sticking to you documented in this encounterDetw[facility]04-13-2023 History of Present illness Narrative* Herbert Jay APRN.CNS - 03/13/2023 11:40 AM EDT SUBJECTIVE: BP CONTROLLED (<130/80) Never done DIABETIC FOOT EXAM due on 12/18/2022 HPI Yobani Reid is a 77 year old female. PMH significant for ACTIVE PROBLEM LIST Essential Hypertension Mixed Hyperlipidemia Postmenopausal Atrophic Vaginitis Acquired Hypothyroidism Unspecified Urinary Incontinence Chronic Rhinitis Coronary Atherosclerosis Postsurgical Percutaneous Transluminal Coronary Angioplasty Status Stage 3a Chronic Kidney Disease (Hcc) Circumscribed Scleroderma Class 3 Severe Obesity Due to Excess Calories Without Serious Comorbidity With Body Mass Index (Bmi) of 40.0 to 44.9 in Adult (Hcc) Plantar Fasciitis, Bilateral Type 2 Diabetes Mellitus With Stage 3a Chronic Kidney Disease, Without Long-Term Current Use of Insulin (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 She was seen at [facility] on March 05, 2023 after sustaining a fall. She was knocked over when carrying a trash can by a laurel of wind. She had a laceration to right thumb. Pain in both knees after the fall left greater than right. On chronic oral anticoagulation. Exam showed 2 cm full-thickness linear laceration over the dorsal aspect of proximal phalanx of the right thumb near the IP joint. Moderate bleeding noted. Mild gapping of the wound margins. Mild tenderness to the rightknee. Small superficial abrasion. Range of motion preserved. Moderate tenderness of the left knee. Range of motion limited on left due to pain. Mild abrasion over anterior aspect of left knee as well. X-ray of the right thumb completed, possible cortical fracture along the lateral aspect of the distal phalanx. No displacement. X-ray of left knee showed no acute fracture or dislocation. She was given a tetanus booster. Wound was cleansed and irrigated with normal saline. Sutures were placed, 7 simple interrupted 4-0 nylon sutures placed. She was advised to keep her right thumb elevated. She was given a prescription for Keflex. She was advised to follow-up with primary care in 7 days for wound check and suture removal. She returned to [facility] ER on March 08, 2023 for back pain after a mechanical fall. No new injuries. She had midline back tenderness in the lumbar region on the right. Lumbar strainwas the impression with muscle spasm. She was treated with oxycodone and diazepam. Today reports thumb still with pain. No adverse effects of medications noted currently. Noted diarrhea with antibiotic initially but no current. Walking with cane or walker for support due to pain. Thumb: improved, no noted drainage, no fever, no warmth Left knee: decreased ecchymosis, swelling and pain, has been applying ice which has helped Right knee: ecchymosis improving Back: pain is less, helps with diazepam Ortho: no appt scheduled PT: no appt shceulded Review of Systems Constitutional: Negative. Respiratory: Negative. Endocrine: Negative. Musculoskeletal: Positive for arthralgias, back pain, gait problem and joint swelling. Skin: Positive for wound. Objective There were no vitals taken for this visit. Physical Exam Vitals and nursing note reviewed. Constitutional: Appearance: Normal appearance. HENT: Head: Normocephalic and atraumatic. Eyes: Conjunctiva/sclera: Conjunctivae normal. Neck: Thyroid: No thyromegaly. Vascular: Normal carotid pulses. No JVD. Cardiovascular: Rate and Rhythm: Normal rate and regular rhythm. Pulses: Carotid pulses are 2+ on the right side and 2+ on the left side. Radial pulses are 2+ on the right side and 2+ on the left side. Heart sounds: Normal heart sounds. Pulmonary: Effort: Pulmonary effort is normal. Breath sounds: Normal breath sounds. Abdominal: General: Bowel sounds are normal. Palpations: Abdomen is soft. Musculoskeletal: Right hand: Laceration, tenderness and bony tenderness present. Decreased range of motion. Normal capillary refill. Normal pulse. Lumbar back: Tenderness present. Right lower leg: No edema. Left lower leg: No edema. Comments: Diffuse ecchymosis and swelling left knee greater than right; laceration right thumb, V shaped distribution, 7 sutures removed, tolerated well, open areas remain at laceration with red wound base, scant bloody drainage no surrounding warmth induration Skin: General: Skin is warm and dry. Neurological: General: No focal deficit present. Mental Status: She is alert and oriented to person, place, and time. ALLERGIES Allergen Reactions Adhesive Tape (Herminia* Other: See Comments Burning and redness where tape touches skin Amoxicillin Rash Ampicillin Rash Niacin Rash flushing Penicillins Rash Sulfa (Sulfonamide * Rash Medications benzonatate (TESSALON PERLES) 100 mg capsule Take 1-2 capsules by mouth three times daily as neededfor cough. albuterol HFA (PROVENTIL HFA, VENTOLIN HFA) 90 mcg/actuation inhaler Inhale 2 Puffs as instructed every 4 hours as needed for wheezing/shortness of breath (cough). fluticasone (FLONASE) 50 mcg/actuation nasal spray Use 2 Sprays in each nostril once daily. Rinse mouth after use. For nasal drainage and congestion isosorbide mononitrate ER (IMDUR) 30 mg 24 hr tablet Take 1 tablet by mouth once daily. levothyroxine (SYNTHROID) 112 mcg tablet Take 1 tablet by mouth once daily. atorvastatin (LIPITOR) 40 mg tablet Take 1 tablet by mouth daily at bedtime. For cholesterol. Fenofibrate (LOFIBRA) 160 mg tablet Take 1 tablet by mouth once daily. atenolol (TENORMIN) 25 mg tablet Take 1 tablet by mouth once daily. fosinopril sodium (MONOPRIL) 40 mg tablet Take 1 tablet by mouth once daily. warfarin (COUMADIN) 5 mg tablet 5mg Fri,Fri and 7.5mg all other days or as directed warfarin (COUMADIN) 5 mg tablet 10 mg on Friday and Friday and 7.5 mg all other days, or as directed solifenacin (VESICARE) 5 mg tablet Take 5 mg by mouth once daily. enoxaparin (LOVENOX) 120 mg/0.8 mL injection Inject 0.8 mL subcutaneously every 12 hours. Start 3 days prior to surgery. Last dose morning of the day prior to surgery, Resume the day after surgery and continue until INR therapeutic >2.0 metFORMIN ER (GLUCOPHAGE XR) 500 mg 24 hr tablet Take 1 tablet by mouth once daily. With meal hydrocortisone 2.5 % ointment Apply 1 application to affected area twice daily. Cholecalciferol, Vitamin D3, 50 mcg (2,000 unit) cap Take 1 capsule by mouth once daily. warfarin (COUMADIN) 5 mg tablet Take 5 mg Fri, Fri and 7.5 mg all other days or as directed blood sugar diagnostic (BLOOD GLUCOSE TEST) test strip Easy Max Test blood sugar(s) one time daily and as needed. Dx: Type 2 DM - Controlled E11.22 N18.3 Insulin: No Blood-Glucose Meter monitoring kit Glucose Meter of Choice - Kit - Dx: Other DM Code E11.22 N18.3 nitroglycerin sublingual (NITROQUICK) 0.4 mg SL tablet Dissolve 1 tablet under the tongue as needed. DISSOLVE ON TONGUE FOR CHEST PAIN. IF NO PAIN RELIEF, CALL 911 meclizine (ANTIVERT) 25 mg tab Take 1 tablet by mouth every 6 hours as needed (dizziness). (prescription given from ER) magnesium oxide (MAG-OX) 400 mg tablet Take 2 tablets by mouth twice daily. Lancets lancets Use as instructed--Check sugars up to once daily. DX: E11.9, Not insulin requiring aspirin(ECOTRIN LOW STRENGTH 81 MG TAB) Take one(1) tablet daily. oxymetazoline hcl(AFRIN SINUS NO DRIP 0.05 % NASAL MIST) as necessary THERAPEUTIC MULTIVITAMIN TAB Take one tablet by mouth daily. 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 vaginitis/post-men. Postsurgical percutaneous transluminal coronary angioplasty status 12/15/2009 Snoring Type II or unspecified type diabetes mellitus without mention of complication, not stated as uncontrolled 02/21/2014 Unspecified essential hypertension Essential hypertension Unspecified hypothyroidism Hypothyroidism Unspecified urinary incontinence urge Social History Tobacco Use Smoking status: Former Packs/day: 1.00 Years: 10.00 Pack years: 10.00 Types: Cigarettes Quit date: 12/01/1969 Years since quittin.3 Smokeless tobacco: Never Substance Use Topics Alcohol use: Yes Comment: Rarely Drug use: No INR (POCT) Date Value Ref Range Status 02/24/2023 2.6 (H) 0.8 - 1.2 Final ASSESSMENT/PLAN: 1. Laceration of right thumb without foreign body without damage to nail, subsequent encounter - ICD9: V58.89, ICD10: S61.011D (primary diagnosis) - HYDROCODONE 7.5 MG-ACETAMINOPHEN 325 MG TABLET - CONSULT TO PHYSICAL THERAPY - CONSULT TO ORTHOPAEDICS - MUPIROCIN 2 % TOPICAL OINTMENT 2. Open fracture of base of distal phalanx of right thumb - ICD9: 816.12, ICD10: S62.521B - HYDROCODONE 7.5 MG-ACETAMINOPHEN 325 MG TABLET - CONSULT TO PHYSICAL THERAPY - CONSULT TO ORTHOPAEDICS 3. Contusion of left knee, subsequent encounter - ICD9: V58.89, 924.11, ICD10: S80.02XD - HYDROCODONE 7.5 MG-ACETAMINOPHEN 325 MG TABLET - CONSULT TO PHYSICAL THERAPY 4. Abrasion, left knee, subsequent encounter - ICD9: V58.89, ICD10: S80.212D - HYDROCODONE 7.5 MG-ACETAMINOPHEN 325 MG TABLET - CONSULT TO PHYSICAL THERAPY 5. Muscle spasm - ICD9: 728.85, ICD10: M62.838 - DIAZEPAM 2 MG TABLET - HYDROCODONE 7.5 MG-ACETAMINOPHEN 325 MG TABLET - CONSULT TO PHYSICAL THERAPY 6. Back strain, subsequent encounter - ICD9: V58.89, 847.9, ICD10: S39.012D - DIAZEPAM 2 MG TABLET - HYDROCODONE 7.5 MG-ACETAMINOPHEN 325 MG TABLET - CONSULT TO PHYSICAL THERAPY Advised: Gently wash your hand and thumb with antibacterial antibacterial soap and water. Apply mupirocin ointment and cover with gauze. Change dressing daily. Soak the dressing with water if it is sticking to you 1 week recheck laceration check INR 03/14 Herbert Jay APRN.KINJAL Medical Decision Making: Problems: Moderate: Acute complicated injury Data: Independent interpretation of test from other physician/QHCP Risk: Moderate: Drug management Medical Decision Making Level: 4 - Moderate documented in this encounterDet[facility]04-10-2023 Miscellaneous Notes* Telephone Encounter - Jose De Jesus Harrington MD - 03/10/2023 7:49 PM EDT Noted. Jose De Jesus Harrington MD * Telephone Encounter - Pao Dickey LPN - 03/10/2023 10:22 AM EDT Patient states doing better, left knee swelling has subsided some and is purple, patient is able toget around using walker. Back pain is about the same. Denies needing OV prior to 03/13/23. Patient is scheduled with Laila Jay on 03/13/23 for ER follow up. FYI. Please note and advise or close encounter. Pao Dickey LPN * Telephone Encounter - Jose De Jesus Harrington MD - 03/08/2023 2:09 PM EDT Below noted Agree with recommendations. Would need seen to give controlled med if needed. Would need to go to ER if needed acute treatment for pain Check on Friday to see if needs appointment * Telephone Encounter - Melvina Glass LPN - 03/08/2023 8:57 AM EDT Patient called in with compliants of lower back pain that started yesterday. She states she did fall on Friday and was seen in [facility] ER but was having no back pain at that time. Yesterday she noted a few times of her back catching when she stood up. When she awoke today she can barely walk, is unable to stand for any length of time and is not comfortable in a seated position unless she is sitting upright and not slouching. Rate the pain 9:10 describes it as sharp stabbing. She took tylenol around 6 am and at this time it has not been at all effective. Explain to patient no available openings today. Did explain that Herbert Jay can see her Friday but if she feels that the pain is so severe and unable to wait until then that she needed to go to ER. documented in this encounterDet[facility]04-08-2023 Miscellaneous Notes* Telephone Encounter - Aaliyah Reed LPN - 03/08/2023 8:51 AM EDT Patient calling regarding new pain related to recent fall. Conferenced to Melvina in Dr. Hsu's office at phone number ([phone]) for assistance. Aaliyah Reed LPN documented in this encounterDetwiler [facility]03-27-2023 History of Present illness Narrative* Severino Healy RN - 02/24/2023 4:03 PM EDT pcp agrees with information * Severino Healy RN - 02/24/2023 9:31 AM EDT patient had inr completed at [facility] patients inr is 2.6 (patients inr range is 2.0-3.0) patient is currently taking 7.5mg Wed,Fri and 5mg all other days patients last dose change was on 08/07/22 due to a high level of 3.7 (dose at that time was 10mg Fri,Sun and 7.5mg all other days) patient has had a change in medication as she is on antibiotics for 2 more days and no missed dosesand no change in diet Advised patient to continue on the same dose(s) and that they would only be contacted regarding dosage and follow up instructions after review with provider, if a change is needed. Written instructions given and patient verbalized understanding. Presently scheduled in 3 weeks (03/14/23) for follow up INR. documented in this encounterDetwiler [facility]03-27-2023 History of Present illness Narrative* Herbert Jay APRN.GARDENING SUPERVISOR - 02/24/2023 10:00 AM EDT SUBJECTIVE Yobani Reid is a 77 year old female who presents with 5 days of symptoms that are improving. Returns to clinic today noting symptoms continue to improve. Cough and nasal congestion persist. Symptoms include: Fever (?100.4F): No or Chills: No Cough: Yes Shortness of breath: No or Difficulty breathing: No Fatigue: No Muscle aches: No Headache: No New loss of smell or taste: No Sore throat: No Nasal congestion: Yes or Rhinorrhea: Yes clear Nausea: No or Vomiting: No Diarrhea: No LHD positional - no longer Appetite improved OTC meds/remedies that patient has tried: OTC cold medicine and robitussin. OBJECTIVE PHYSICAL EXAM: BP 136/74 Pulse 74 Resp 16 Wt 113.9 kg (251 lb) SpO2 95% BMI 43.08 kg/m General appearance: tired/ill appearing, alert, cooperative, pleasant, in no acute distress Head: Normocephalic Eyes: conjunctiva/corneas normal Ears: R TM - clear with good landmarks, nl light reflex, L TM - clear with good landmarks, nl lightreflex Nose: clear rhinorrhea Oropharynx: moist without lesions, mild erythema to GPA Neck: supple and small, benign anterior cervical nodes bilaterally Heart: regular rate and rhythm, without murmur Lungs: clear to auscultation, without rales or wheeze, good air exchange INR (POCT) Date Value Ref Range Status 02/24/2023 2.6 (H) 0.8 - 1.2 Final ASSESSMENT/PLAN (J32.9, J40) Sinobronchitis (primary encounter diagnosis) (Z79.01) Chronic anticoagulation Continue with current treatment unchanged. - BENZONATATE 100 MG CAPSULE - ALBUTEROL SULFATE HFA 90 MCG/ACTUATION AEROSOL INHALER - INHALATIONAL SPACING DEVICE - AZITHROMYCIN 250 MG TABLET - FLUTICASONE PROPIONATE 50 MCG/ACTUATION NASAL SPRAY,SUSPENSION Drink plenty of fluids and get adequate rest. Continue with Coumadin dosing unchanged 5 mg Friday, 7.5 mg Friday. Recheck INR March 14. No need to return to clinic if continues to feel improved back to baseline. Return to clinic if notcontinuing to improve. ER for any severe or concerning symptoms as advised. Herbert Jay APRN.CNS Medical Decision Making: Problems: Low: Acute, uncomplicated illness or injury Risk: Moderate: Drug management Medical Decision Making Level: 3 - Low documented in this encounterDetwiler [facility]03-24-2023 History of Present illness Narrative* Herbert Jay APRN.CNS - 02/21/2023 2:00 PM EDT SUBJECTIVE Yboani Reid is a 77 year old female who presents with 5 days of symptoms that are improving. Symptoms include: Fever (?100.4F): No or Chills: No Cough: Yes, occasionally productive, purulent Shortness of breath: Yes or Difficulty breathing: No Fatigue: Yes Muscle aches: No Headache: Yes, frontal New loss of smell or taste: No Sore throat: Yes starting today Nasal congestion: Yes or Rhinorrhea: Yes clear Nausea: No or Vomiting: No Diarrhea: No LHD positional Decreased appetite Oral intake: notes not drinking enough Some wheezing, chest congestion. OTC meds/remedies that patient has tried: OTC cold medicine and robitussin. High risk category assessment Age > 60 years old Diabetes Exposures: Sick contacts? No Family or close contacts with confirmed/probable COVID-19 in last 14 days? No OBJECTIVE PHYSICAL EXAM: BP 130/72 Pulse 75 Temp 37.4 C (99.3 F) Resp 20 Wt 114.3 kg (252 lb) SpO2 96% BMI 43.26kg/m General appearance: tired/ill appearing, alert, cooperative, pleasant, in no acute distress Head: Normocephalic Eyes: conjunctiva/corneas normal Ears: R TM - clear with good landmarks, nl light reflex, L TM - clear with good landmarks, nl lightreflex Nose: clear rhinorrhea Oropharynx: moist without lesions, mild erythema to GPA Neck: supple and small, benign anterior cervical nodes bilaterally Heart: regular rate and rhythm, without murmur Lungs: clear to auscultation, without rales or wheeze, good air exchange INR (POCT) Date Value Ref Range Status 02/13/2023 2.8 (H) 0.8 - 1.2 Final ASSESSMENT/PLAN (J32.9, J40) Sinobronchitis (primary encounter diagnosis) (J20.9) Acute bronchitis ASSESSMENT/PLAN: 1. Sinobronchitis - ICD9: 473.9, 490, ICD10: J32.9, J40 (primary diagnosis) - BENZONATATE 100 MG CAPSULE - ALBUTEROL SULFATE HFA 90 MCG/ACTUATION AEROSOL INHALER - INHALATIONAL SPACING DEVICE - AZITHROMYCIN 250 MG TABLET - FLUTICASONE PROPIONATE 50 MCG/ACTUATION NASAL SPRAY,SUSPENSION Drink plenty of fluids and get adequate rest. check INR Friday or Friday Recheck with me on Friday or Friday ER for any severe or concerning symptoms as advised. Herbert Jay APRN.CNS - Discussed symptom monitoring and supportive care - Red flag symptoms requiring follow up discussed Medical Decision Making: Problems: Low: Acute, uncomplicated illness or injury Risk: Low: Low risk from testing/treatment Moderate: Drug management Medical Decision Making Level: 3 - Low documented in this encounterDetwiler [facility]03-16-2023 History of Present illness Narrative* Herbert Jay APRN.CNS - 02/13/2023 12:55 PM EDT Continue with Coumadin dose unchanged and check INR in 4 weeks * Severino Healy RN - 02/13/2023 10:29 AM EDT patient had inr completed at [facility] patients inr is 2.8 (patients inr range is 2.0-3.0) patient is currently taking 7.5mg Wed,Fri and 5mg all other days patients last dose change was on 08/07/22 due to a high level of 3.7 (dose at that time was 10mg Fri,Sun and 7.5mg all other days) patient has had no changes in medication and no missed doses and no change in diet Advised patient to continue on the same dose(s) and that they would only be contacted regarding dosage and follow up instructions after review with provider, if a change is needed. Written instructions given and patient verbalized understanding. Presently scheduled in 4 weeks (03/14/23) for follow up INR. documented in this encounterDetwiler [facility]02-20-2023 Miscellaneous Notes* Telephone Encounter - Jose De Jesus Harrington MD - 01/20/2023 7:12 PM EST The following approved medication requests have been transmitted electronically. Requested Prescriptions Signed Prescriptions Disp Refills isosorbide mononitrate ER (IMDUR) 30 mg 24 hr tablet 90 tablet 3 Sig: Take 1 tablet by mouth once daily. Authorizing Provider: JOSE DE JESUS HARRINGTON levothyroxine (SYNTHROID) 112 mcg tablet 90 tablet 3 Sig: Take 1 tablet by mouth once daily. Authorizing Provider: JOSE DE JESUS HARRINGTON Refused Prescriptions Disp Refills atorvastatin (LIPITOR) 40 mg tablet 90 tablet 3 Sig: Take 1 tablet by mouth daily at bedtime. For cholesterol. Refused By: MELVINA GLASS LPN Reason for Refusal: Records indicate that there is a valid prescription at the pharmacy Jose De Jesus Harrington MD * Telephone Encounter - Melvina Glass LPN - 01/20/2023 4:16 PM EST Records indicate that there is a valid prescription at the pharmacy for atorvastatin. Other two medication requested are due for a new script. Last office visit: 12/18/22 Next appointment scheduled: 06/17/23 Last labs: 12/17/22 last TSH documented in [facility]Det[facility] History of Present illness Narrative* Severino Healy RN - 12/18/2022 2:17 PM EST pcp agrees with information * Severino Healy RN - 12/18/2022 10:08 AM EST patient had inr completed at [facility] patients inr is 2.0 (patients inr range is 2.0-3.0) patient is currently taking 7.5mg Wed,Fri and 5mg all other days patients last dose change was on 08/07/22 due to a high level of 3.7 (dose at that time was 10mg Fri,Sun and 7.5mg all other days) patient has had no changes in medication and no missed doses and no change in diet Advised patient to continue on the same dose(s) and that they would only be contacted regarding dosage and follow up instructions after review with provider, if a change is needed. Written instructions given and patient verbalized understanding. Presently scheduled in 4 weeks (01/16/23) for follow up INR. documented in this encounterDet[facility]12[facility]22-[facility]22 History of Present illness Narrative* Severino Healy RN - 11/21/2022 4:57 PM EST per verbal order pcp agrees with iformation * Severino Healy RN - 11/21/2022 10:34 AM EST patient had inr completed at [facility] patients inr is 2.4 (patients inr range is 2.0-3.0) patient is currently taking 7.5mg Wed,Fri and 5mg all other days patients last dose change was on 08/07/22 due to a high level of 3.7 (dose at that time was 10mg Fur,Sun and 7.5mg all other days) patient has had no changes in medication and no missed dose and no change in diet Advised patient to continue on the same dose(s) and that they would only be contacted regarding dosage and follow up instructions after review with provider, if a change is needed. Written instructions given and patient verbalized understanding. Presently scheduled in 4 weeks (12/18/22 - pt has appt with pcp also this day) for follow up INR. documented in this encounterDet[facility]12-01-2022 History of Present illness Narrative* Herbert Jay APRN.CNS - 10/31/2022 3:54 PM EST Continue with Coumadin dose unchanged and check INR in 3 weeks * Severino Healy RN - 10/31/2022 11:13 AM EST patient had inr completed at [facility] patients inr is 2.1 (patients inr range is 2.0-3.0) patient is currently taking 7.5mg Wed,Fri and 5mg all other days patients last dose change was on 08/07/22 due to a high level of 3.7 (dose at that time was 10mg Fri,Sun and 7.5mg all other days) patient has had no changes in medication and no missed doses and no change in diet Advised patient to continue on the same dose(s) and that they would only be contacted regarding dosage and follow up instructions after review with provider, if a change is needed. Written instructions given and patient verbalized understanding. Presently scheduled in 3 weeks (11/21/22 - per pt requ est) for follow up INR. documented in this encounterDetw[facility]10-27-2022 History of Present illness Narrative* Herbert Jay APRN.CNS - 09/26/2022 12:53 PM EDT Continue current coumadin dose unchanged and recheck INR one month * Severino Healy RN - 09/26/2022 12:04 PM EDT patient had inr completed at [facility] patients inr is 2.1 (patients inr range is 2.0-3.0) patient is currently taking 7.5mg Wed,Fri and 5mg all other days patients last dose change was on 08/07/22 due to a high level of 3.7 (dose at that time was 10mg Fri,Sun and 7.5mg all other days) patient has had no changes in medication and no missed doses and no change in diet Advised patient to continue on the same dose(s) and that they would only be contacted regarding dosage and follow up instructions after review with provider, if a change is needed. Written instructions given and patient verbalized understanding. Presently scheduled in 1 month (10/31/22) for follow up INR. documented in this encounterDetwiler [facility]10-27-2022 Miscellaneous Notes* Telephone Encounter - Severino Healy RN - 09/26/2022 12:06 PM EDT patients orders for coumadin clinic inr's has at this time. new order has been pended for approval if possible so that patient can continue to get inr's completed thru the coumadin clinic. coumadin clinic nurse only needs called if order can not be approved. documented in this encounterDetw[facility]09-29-2022 History of Present illness Narrative* Herbert Jay APRN.CNS - 08/29/2022 2:20 PM EDT Continue Coumadin dose unchanged and check INR in 4 weeks * Severino Healy RN - 08/29/2022 1:46 PM EDT patient had inr completed at [facility] patients inr is 2.2 (patients inr range is 2.0-3.0) patient is currently taking 7.5mg Wed,Fri and 5mg all other days patients last dose change was on 08/07/22 due to a high level of 3.7 (dose at that time was 10mg Fri,Sun and 7.5mg all other days) patient has had no changes in medication and no missed doses and no change in diet Advised patient to continue on the same dose(s) and that they would only be contacted regarding dosage and follow up instructions after review with provider, if a change is needed. Written instructions given and patient verbalized understanding. Presently scheduled in 4 weeks (09/26/22) for follow u p INR. documented in this encounterDetwiler [facility]09-15-2022 Miscellaneous Notes* Telephone Encounter - Sheri De La Cruz LPN - 08/15/2022 5:12 PM EDT Patient notified of providers message and verbalized understanding. * Telephone Encounter - Herbert Jay APRN.CNS - 08/15/2022 5:05 PM EDT Continue Coumadin dose unchanged and recheck INR 2 weeks * Telephone Encounter - Annabella Moura LPN - 08/14/2022 9:42 AM EDT Last INR: [facility] lab draw 2 .2 08/13/2022 Current dose of coumadin is: 7.5mg Wed,Fri and 5mg all other days . Last date of dose change: 08/07/22. Previous INR (date and result): 08/07/22 was 3.7 Additional Clinical Information or narrative: INR goal is 2-3. Pt findings are negative. documented in this encounterDetwiler [facility]09-10-2022 History of Present illness Narrative* Jose De Jesus Harrington MD - 08/10/2022 3:59 PM EDT Filed orders to follow up on UTI symptoms and microscopic hematuria. May choose to do studies through Dr. Peters at [facility] if prefers. MyChart message through results notes was sent regarding urine studies being ordered as noted abovebut did not discuss follow up with Dr. Peters as noted above documented in this encounterDetwiler [facility]09-06-2022 Miscellaneous Notes* Telephone Encounter - Almita Mora Ma - 08/06/2022 4:17 PM EDT Patient notified * Telephone Encounter - Jose De Jesus Harrington MD - 08/06/2022 12:53 PM EDT The following approved medication requests have been transmitted electronically. Requested Prescriptions Signed Prescriptions Disp Refills warfarin (COUMADIN) 5 mg tablet 20 tablet 0 Si mg on Friday and Friday and 7.5 mg all other days, or as directed Authorizing Provider: JOSE DE JESUS HARRINGTON MD * Telephone Encounter - Desiree Dailey RN - 08/06/2022 9:27 AM EDT Patient calling and reports she is completely out of her coumadin. Asking for a short-term supply of coumadin be sent to [facility] in [place]. 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 Please call pt with update of refills. Thank you. documented in this encounterDetwiler [facility]09-06-2022 Miscellaneous Notes* Telephone Encounter - Jose De Jesus Harrington MD - 08/06/2022 1:39 PM EDT Short term taken care of in other request. The following approved medication requests have been transmitted electronically. Requested Prescriptions Signed Prescriptions Disp Refills warfarin (COUMADIN) 5 mg tablet 180 tablet 3 Simg Mon,Wed and 7.5mg all other days or as directed Authorizing Provider: JOSE DE JESUS HARRINGTON MD * Telephone Encounter - Cesia Julien - 08/06/2022 8:40 AM EDT Patient has been identified by name and date of : Yes Requested Prescriptions Pending Prescriptions Disp Refills warfarin (COUMADIN) 5 mg tablet 30 tablet 0 Sig: Take 5 mg Mon, Wed and 7.5 mg all other days or as directed RX INSTRUCTIONS: Patient aware RX will be sent to pharmacy. Patient is [facility] have [facility] [place] [facility] with [facility] mail order. No need to notify patient. Cesia Julien documented in this encounterDetwiler [facility]09-02-2022 Miscellaneous Notes* Telephone Encounter - Britney Deleon RN - 08/02/2022 3:45 PM EDT Pt called in today and reports she forgot her appointment with the Coumadin Clinic. Pt was given the choice of getting it done at the lab today or Severino said she could fit her in on Friday08/07/22 at 1045. Pt was scheduled on Friday. documented in this encounterDetwiler [facility]08-31-2022 History of Present illness Narrative* Jose De Jesus Harrington MD - 07/31/2022 2:54 PM EDT This note was created using [employer]. Subjective Yobani Reid is a 77 year old female. Patient presents with: Follow Up UTI SUBJECTIVE: Yobani Reid is a 77 year old year old lady here today for follow up appointment for review ofmedical conditions: UTI symptoms that started yesterday. Finished recent antibiotic that took cephalexin 500mg TID for [address] Peters. Symptoms came back when completed course. Pain when starts to pee. Urgency and frequency. Some discharge when wipes. Seems mucosy. Reviewed that solifenecin had really helped so went from 6 to 7 times a day to 3 times a day so didnot end up needing surgery. Noted did fine on Lovenox and getting back to therapeutic INR yesterday and finished also the Lovenox. Had to pay $300 for this. Issues with cost of med (solifenecin). Was fine first time. Pharmacist told her is expensive. Discussed retail cost issues, etc. Discussed leg crams has had foreveer at night. Started with Homeopathic Leg Cramps PM--effective in 5 minutes of taking. Uses 3 SL when has cramp at night. Drinks 3 16 oz bottle a day. Does not get terribly thirsty with new med--not like oxybutynin. 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 vaginitis/post-men. Postsurgical percutaneous transluminal coronary angioplasty status 12/15/2009 Snoring Type II or unspecified type diabetes mellitus without mention of complication, not stated as uncontrolled 02/21/2014 Unspecified essential hypertension Essential hypertension Unspecified hypothyroidism Hypothyroidism Unspecified urinary incontinence urge Current Outpatient Medications Medication Sig solifenacin (VESICARE) 5 mg tablet Take 5 mg by mouth once daily. enoxaparin (LOVENOX) 120 mg/0.8 mL injection Inject 0.8 mL subcutaneously every 12 hours. Start 3 days prior to surgery. Last dose morning of the day prior to surgery, Resume the day after surgery and continue until INR therapeutic >2.0 metFORMIN ER (GLUCOPHAGE XR) 500 mg 24 hr tablet Take 1 tablet by mouth once daily. With meal levothyroxine (SYNTHROID) 112 mcg tablet Take 1 tablet by mouth once daily. vibegron (GEMTESA) 75 mg tablet Take 75 mg by mouth once daily. isosorbide mononitrate ER (IMDUR) 30 mg 24 hr tablet Take 1 tablet by mouth once daily. atorvastatin (LIPITOR) 40 mg tablet Take 1 tablet by mouth daily at bedtime. For cholesterol. atenolol (TENORMIN) 25 mg tablet Take 1 tablet by mouth once daily. fosinopril sodium (MONOPRIL) 40 mg tablet Take 1 tablet by mouth once daily. Fenofibrate (LOFIBRA) 160 mg tablet Take 1 tablet by mouth once daily. hydrocortisone 2.5 % ointment Apply 1 application to affected area twice daily. Cholecalciferol, Vitamin D3, 50 mcg (2,000 unit) cap Take 1 capsule by mouth once daily. warfarin (COUMADIN) 5 mg tablet 5mg Mon,Wed and 7.5mg all other days or as directed warfarin (COUMADIN) 5 mg tablet Take 5 mg Mon, Wed and 7.5 mg all other days or as directed blood sugar diagnostic (BLOOD GLUCOSE TEST) test strip Easy Max Test blood sugar(s) one time daily and as needed. Dx: Type 2 DM - Controlled E11.22 N18.3 Insulin: No Blood-Glucose Meter monitoring kit Glucose Meter of Choice - Kit - Dx: Other DM Code E11.22 N18.3 nitroglycerin sublingual (NITROQUICK) 0.4 mg SL tablet Dissolve 1 tablet under the tongue as needed. DISSOLVE ON TONGUE FOR CHEST PAIN. IF NO PAIN RELIEF, CALL 911 meclizine (ANTIVERT) 25 mg tab Take 1 tablet by mouth every 6 hours as needed (dizziness). (prescription given from ER) magnesium oxide (MAG-OX) 400 mg tablet Take 2 tablets by mouth twice daily. Lancets lancets Use as instructed--Check sugars up to once daily. DX: E11.9, Not insulin requiring aspirin(ECOTRIN LOW STRENGTH 81 MG TAB) Take one(1) tablet daily. oxymetazoline hcl(AFRIN SINUS NO DRIP 0.05 % NASAL MIST) as necessary THERAPEUTIC MULTIVITAMIN TAB Take one tablet by mouth daily. No current facility-administered medications for this visit. Review of Systems Objective BP 126/64 Pulse (!) 59 Wt 115.7 kg (255 lb) SpO2 97% BMI 43.77 kg/m Physical Exam Constitutional: Appearance: Normal appearance. HENT: Head: Normocephalic. Eyes: Conjunctiva/sclera: Conjunctivae normal. Cardiovascular: Rate and Rhythm: Normal rate and regular rhythm. Heart sounds: Normal heart sounds. Pulmonary: Effort: Pulmonary effort is normal. Breath sounds: Normal breath sounds. Skin: General: Skin is warm and dry. Neurological: General: No focal deficit present. Mental Status: She is alert and oriented to person, place, and time. Psychiatric: Mood and Affect: Mood normal. Behavior: Behavior normal. Thought Content: Thought content normal. Judgment: Judgment normal. Hemoglobin A1C (%) Date Value 06/18/2022 6.2 12/18/2021 6.2 04/10/2021 6.2 09/01/2020 6.3 01/04/2020 6.1 06/22/2019 6.2 Urine dip--spec grav 1.020, blood mod, leuk small. Assessment and Plan ASSESSMENT/PLAN: 1. UTI symptoms - ICD9: 788.99, ICD10: R39.9 (primary diagnosis) Further evaluation and treatment as indicated. - URINE CULTURE - URINALYSIS, WITH MICROSCOPIC - Treated with Keflex. 2. Urgency incontinence - ICD9: 788.31, ICD10: N39.41 Further evaluation and treatment as indicated. Jose De Jesus Harrington MD documented in this encounterDetwiler [facility]08-30-2022 History of Present illness Narrative* Severino Healy RN - 07/30/2022 4:29 PM EDT per pcp she agrees with information * Severino Healy RN - 07/30/2022 11:26 AM EDT patient had inr completed at [facility] patients inr is 2.0 (patients inr range is 2.0-3.0) patient is currently taking 10mg Fri Sun and 7.5mg all other days patients last dose change was on 07/26/22 due to a low level of 1.3 (dose at that time was 7.5mg daily and lovenox twice daily) patient has had no changes in medication except for coumadin and lovenox and no change in diet Advised patient to continue on the same dose(s) of coumadin and stop lovenox and that they would only be contacted regarding dosage and follow up instructions after review with provider, if a change is needed. Written instructions given and patient verbalized understanding. Presently scheduled in 1week 08/02/22 for follow up INR. documented in this encounterDetw[facility]08-26-2022 History of Present illness Narrative* Severino Healy RN - 07/26/2022 3:48 PM EDT per pcp pt is to continue lovenox twice daily and 10mg Fri Sun and 7.5mg all other days PATIENT NOTIFIED OF INFORMATION * Severino Healy RN - 07/26/2022 12:20 PM EDT patient had inr completed at [facility] patients inr is 1.3 (patients inr range is 2.0-3.0) patient is currently taking lovenox twice daily and 7.5mg coumadin daily patients last dose change unknown patient has had no changes in medication except for coumadin/lovenox and no change in diet Advised patient that they would be contacted regarding medication dose and when to follow up after information is reviewed by provider. After provider review please contact the patient with information and schedule follow up appointment with coumadin clinic. FYI- patient has been scheduled for a 4 day follow up inr on 07/30/22 documented in this encounterDetwiler [facility]08-19-2022 Miscellaneous Notes* Telephone Encounter - Annabella Moura LPN - 07/19/2022 8:56 AM EDT Rec'd approval until 11/30/22 for 14 in 7 days. Message left to pt with info and approval was faxed to the pharmacy. * Telephone Encounter - Annabella Moura LPN - 07/18/2022 2:13 PM EDT When calling pt back with further directions she reports the pharmacy told her the lovenox needed prior authorized. Called the pharmacy and they report the insurance does not like the qty. Asked them to run the rx for 10 syringes with same response. Called the PA number for [employer] and they report this is covered at 22.4 for 28 day supply. Revieweddirections and PA completed. Auth number is [id number]. They will fax response in 48-72 hours. documented in this encounterDetwiler [facility] Hospital08-18-2022 Miscellaneous Notes* Telephone Encounter - Annabella Moura LPN - 07/18/2022 1:30 PM EDT Patient notified of results and provider's instructions. Patient verbalizes understanding. This info was faxed to Dr. Peters's office. Annabella Moura LPN * Telephone Encounter - Jose De Jesus Harrington MD - 07/18/2022 1:13 PM EDT Sorry--meant to adjust the dose to match what she is taking now. Stop warfarin 5 days prior to surgery Start Lovenox injections twice daily - every 12 hours - 3 days prior to surgery Take last dose of Lovenox 12 hours or greater before surgery (typically morning dose only the day before surgery) Resume Lovenox injections twice daily following surgery once bleeding has stopped, typically the following morning or as directed post procedure. Resume coumadin the day following surgery at usual dose - 7.5mg & Fridays then 5mg all other days Continue Lovenox until INR > 2.0, then stop Check INR 1-2 days prior to surgery and 2-3 days after surgery. * Telephone Encounter - Minerva Ca LPN - 07/18/2022 12:21 PM EDT Per pcp instructions in message below, it says Resume coumadin the day following surgery at usual dose - 5 mg daily. Pt is currently taking 7.5mg & Fridays then 5mg all other days. Should ptcontinue with this schedule or 5mg all days? Please advise. Minerva Ca LPN * Telephone Encounter - Minerva Ca LPN - 07/18/2022 10:46 AM EDT All instructions were given to pt & pt read instructions back, stating understanding. Message with Lovenox instructions faxed to Dr Peters at [phone]. Minerva Ca LPN * Telephone Encounter - Minerva Ca LPN - 07/18/2022 10:45 AM EDT Below noted Follow prior instructions for bridging Lovenox: Stop warfarin 5 days prior to surgery Start Lovenox injections twice daily - every 12 hours - 3 days prior to surgery Take last dose of Lovenox 12 hours or greater before surgery (typically morning dose only the day before surgery) Resume Lovenox injections twice daily following surgery once bleeding has stopped, typically the following morning or as directed post procedure. Resume coumadin the day following surgery at usual dose - 5 mg daily Continue Lovenox until INR > 2.0, then stop Check INR 1-2 days prior to surgery and 2-3 days after surgery. The following approved medication requests have been transmitted electronically. Requested Prescriptions Signed Prescriptions Disp Refills enoxaparin (LOVENOX) 120 mg/0.8 mL injection 14 Syringe 0 Sig: Inject 0.8 mL subcutaneously every 12 hours. Start 3 days prior to surgery. Last dose morning of the day prior to surgery, Resume the day after surgery and continue until INR therapeutic >2.0 Authorizing Provider: JOSE DE JESUS HARRINGTON MD * Telephone Encounter - Annabella Moura LPN - 07/18/2022 9:26 AM EDT Message left for pt to return call to a nurse to review. Will also need to send this info to Dr. Peters. Can fax this encounter to that office. * Telephone Encounter - Jose De Jesus Harrington MD - 07/17/2022 7:39 PM EDT Below noted Follow prior instructions for bridging Lovenox: Stop warfarin 5 days prior to surgery Start Lovenox injections twice daily - every 12 hours - 3 days prior to surgery Take last dose of Lovenox 12 hours or greater before surgery (typically morning dose only the day before surgery) Resume Lovenox injections twice daily following surgery once bleeding has stopped, typically the following morning or as directed post procedure. Resume coumadin the day following surgery at usual dose - 5 mg daily Continue Lovenox until INR > 2.0, then stop Check INR 1-2 days prior to surgery and 2-3 days after surgery. The following approved medication requests have been transmitted electronically. Requested Prescriptions Signed Prescriptions Disp Refills enoxaparin (LOVENOX) 120 mg/0.8 mL injection 14 Syringe 0 Sig: Inject 0.8 mL subcutaneously every 12 hours. Start 3 days prior to surgery. Last dose morning of the day prior to surgery, Resume the day after surgery and continue until INR therapeutic >2.0 Authorizing Provider: JOSE DE JESUS HARRINGTON MD * Telephone Encounter - Lexy Rodrigez LPN - 07/16/2022 2:52 PM EDT Bridgett with Dr. Peters, Urology called and states pt will be having surgery done (cystoscopy with botox into the bladder and she will be put under sedation). on 07/25/22. Pt takes coumadin and Nadinestates pt will need to be bridged with Lovenox. Instructions and prescription will need to be ordered by pt's pcp. Letter will be sent also to you from Dr. Peters. Any questions please call bridgett [phone]. documented in this encounterDetwiler [facility]08-12-2022 History of Present illness Narrative* Severino Healy RN - 07/12/2022 4:03 PM EDT per pcp she agrees with information * Severino Healy RN - 07/12/2022 10:23 AM EDT patient had inr completed at [facility] patients inr is 2.4 (patients inr range is 2.0-3.0) patient is currently taking 7.5mg Wed,Fri and 5mg all other days patients last dose change was on 02/07/22 due to a low level of 1.8 (dose at that time was 7.5mg Wedand 5mg all other days) patient has had no changes in medication and no missed doses and no change in diet Advised patient to continue on the same dose(s) and that they would only be contacted regarding dosage and follow up instructions after review with provider, if a change is needed. Written instructions given and patient verbalized understanding. Presently scheduled in 3 weeks (08/02/22) for follow up INR. documented in this encounterDetwiler [facility] Hospital07-19-2022 Instructions* Patient Instructions* Herbert Jay APRN.CNS - 06/18/2022 10:46 AM EDT Check to see if your insurance covers shingles vaccine and what location to get the vaccine - usually best covered at your local pharmacy where you get prescriptions filled Schedule an appt with Dr Peters documented in this encounterDetwiler [facility]07-19-2022 History of Present illness Narrative* Herbert Jay APRN.CNS - 06/18/2022 10:40 AM EDT SUBJECTIVE: SHINGRIX VACCINE(2 of 3) due on 04/09/2012 ADVANCE DIRECTIVE DISCUSSION Never done HBA1C due on 06/17/2022 DILATED RETINAL EXAM due on 06/26/2022 HPI Yobani Reid is a 77 year old female. PMH significant for ACTIVE PROBLEM LIST Essential Hypertension Mixed Hyperlipidemia Postmenopausal Atrophic Vaginitis Acquired Hypothyroidism Unspecified Urinary Incontinence Chronic Rhinitis Coronary Atherosclerosis Postsurgical Percutaneous Transluminal Coronary Angioplasty Status Stage 3a Chronic Kidney Disease (Hcc) Circumscribed Scleroderma Class 3 Severe Obesity Due to Excess Calories Without Serious Comorbidity With Body Mass Index (Bmi) of 40.0 to 44.9 in Adult (Hcc) Plantar Fasciitis, Bilateral Type 2 Diabetes Mellitus With Stage 3a Chronic Kidney Disease, Without Long-Term Current Use of Insulin (Hcc) nursing home current use of 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 History of Pulmonary Embolus (Pe) Hypertensive Kidney Disease With Stage 3a Chronic Kidney Disease (Hcc) Vitamin D Deficiency Hypomagnesemia She notes she had a mild case of COVID recently. Now recovered. 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 [facility]. Bleeding difficulties: none report Note she has seen Dr. Peters regarding bladder issues. Procedure was recommended but not covered by her insurance. She may check to see if she could possibly do this [id number]. Needs to schedulea follow-up appointment with her. DIABETES MELLITUS: Without report of excessive thirst or increased frequency of urination, chest pain or dyspnea , numbness, tingling or pain in extremities, new or unusual visual symptoms, low sugar/hypoglycemic reactions, weight loss/gain, lightheadedness/dizziness and bowel changes/loose stools.Patient's last HgA1C was Hemoglobin A1C (%) Date Value 12/18/2021 6.2 04/10/2021 6.2 ) Dr Espinosa eye doctor visit tomorrow HTN: Without report of headache, chest pain, palpitations, dyspnea, peripheral edema, orthopnea, fatigue and PND. Last 14 Encounter BP Readings: Date: BP: 06/18/2022 136/76 12/18/2021 122/68 04/18/2021 108/62 09/12/2020 106/62 01/12/2020 120/64 08/05/2019 124/74 07/05/2019 150/70 07/05/2019 136/75 06/30/2019 116/78 03/12/2019 138/82 12/15/2018 128/64 09/08/2018 131/84 09/01/2018 134/80 06/09/2018 126/78 Hyperlipidemia. Ms. Reid reports doing well on current therapy Her most recent lipid panels are: Cholesterol, Total (mg/dL) Date Value 04/10/2021 184 09/01/2020 178 HDL Cholesterol (mg/dL) Date Value 04/10/2021 51 09/01/2020 55 LDL Cholesterol (mg/dL) Date Value 04/10/2021 113 09/01/2020 108 Triglyceride (mg/dL) Date Value 04/10/2021 101 09/01/2020 75 Creatinine Date Value Ref Range Status 12/18/2021 1.07 (H) 0.58 - 0.96 mg/dL Final 04/10/2021 1.25 (H) 0.58 - 0.96 mg/dL Final 09/01/2020 1.11 (H) 0.58 - 0.96 mg/dL Final 01/04/2020 1.17 (H) 0.58 - 0.96 mg/dL Final Hypothyroidism. She is doing well on her current dose of Synthroid. TSH (uU/mL) Date Value 12/18/2021 1.470 04/10/2021 2.170 ) Review of Systems Constitutional: Negative. Respiratory: Negative. Gastrointestinal: Bladder problem, Dr Peters following Endocrine: Negative. Objective BP 136/76 Pulse (!) 58 Resp 16 Wt 113.4 kg (250 lb) BMI 42.91 kg/m Physical Exam Vitals and nursing note reviewed. Constitutional: Appearance: Normal appearance. HENT: Head: Normocephalic and atraumatic. Eyes: Conjunctiva/sclera: Conjunctivae normal. Neck: Thyroid: No thyromegaly. Vascular: Normal carotid pulses. No JVD. Cardiovascular: Rate and Rhythm: Normal rate and regular rhythm. Pulses: Carotid pulses are 2+ on the right side and 2+ on the left side. Radial pulses are 2+ on the right side and 2+ on the left side. Heart sounds: Normal heart sounds. Pulmonary: Effort: Pulmonary effort is normal. Breath sounds: Normal breath sounds. Abdominal: General: Bowel sounds are normal. Palpations: Abdomen is soft. Musculoskeletal: Right lower leg: No edema. Left lower leg: No edema. Skin: General: Skin is warm and dry. Neurological: General: No focal deficit present. Mental Status: She is alert and oriented to person, place, and time. ALLERGIES Allergen Reactions Adhesive Tape (Herminia* Other: See Comments Burning and redness where tape touches skin Amoxicillin Rash Ampicillin Rash Keflex [Cephalexin] Rash Niacin Rash flushing Penicillins Rash Sulfa (Sulfonamide * Rash Medications metFORMIN ER (GLUCOPHAGE XR) 500 mg 24 hr tablet, Take 1 tablet by mouth once daily. With meal levothyroxine (SYNTHROID) 112 mcg tablet, Take 1 tablet by mouth once daily. isosorbide mononitrate ER (IMDUR) 30 mg 24 hr tablet, Take 1 tablet by mouth once daily. atorvastatin (LIPITOR) 40 mg tablet, Take 1 tablet by mouth daily at bedtime. For cholesterol. atenolol (TENORMIN) 25 mg tablet, Take 1 tablet by mouth once daily. fosinopril sodium (MONOPRIL) 40 mg tablet, Take 1 tablet by mouth once daily. Fenofibrate (LOFIBRA) 160 mg tablet, Take 1 tablet by mouth once daily. hydrocortisone 2.5 % ointment, Apply 1 application to affected area twice daily. Cholecalciferol, Vitamin D3, 50 mcg (2,000 unit) cap, Take 1 capsule by mouth once daily. warfarin (COUMADIN) 5 mg tablet, 5mg Mon,Wed and 7.5mg all other days or as directed warfarin (COUMADIN) 5 mg tablet, Take 5 mg Mon, Wed and 7.5 mg all other days or as directed blood sugar diagnostic (BLOOD GLUCOSE TEST) test strip, Easy Max Test blood sugar(s) one time dailyand as needed. Dx: Type 2 DM - Controlled E11.22 N18.3 Insulin: No Blood-Glucose Meter monitoring kit, Glucose Meter of Choice - Kit - Dx: Other DM Code E11.22 N18.3 nitroglycerin sublingual (NITROQUICK) 0.4 mg SL tablet, Dissolve 1 tablet under the tongue as needed. DISSOLVE ON TONGUE FOR CHEST PAIN. IF NO PAIN RELIEF, CALL 911 meclizine (ANTIVERT) 25 mg tab, Take 1 tablet by mouth every 6 hours as needed (dizziness). (prescription given from ER) magnesium oxide (MAG-OX) 400 mg tablet, Take 2 tablets by mouth twice daily. Lancets lancets, Use as instructed--Check sugars up to once daily. DX: E11.9, Not insulin requiring aspirin(ECOTRIN LOW STRENGTH 81 MG TAB), Take one(1) tablet daily. oxymetazoline hcl(AFRIN SINUS NO DRIP 0.05 % NASAL MIST), as necessary THERAPEUTIC MULTIVITAMIN TAB, Take one tablet by mouth daily. vibegron (GEMTESA) 75 mg tablet, Take 75 mg by mouth once daily. 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 vaginitis/post-men. Postsurgical percutaneous transluminal coronary angioplasty status 12/15/2009 Snoring Type II or unspecified type diabetes mellitus without mention of complication, not stated as uncontrolled 02/21/2014 Unspecified essential hypertension Essential hypertension Unspecified hypothyroidism Hypothyroidism Unspecified urinary incontinence urge Social History Tobacco Use Smoking status: Former Smoker Packs/day: 1.00 Years: 10.00 Pack years: 10.00 Types: Cigarettes Quit date: 12/01/1969 Years since quittin.5 Smokeless tobacco: Never Used Substance Use Topics Alcohol use: Yes Comment: Rarely Drug use: No ASSESSMENT/PLAN: 1. Type 2 diabetes mellitus with stage 3a chronic kidney disease, without long- term current use of insulin (HCC) - ICD9: 250.40, 585.3, ICD10: E11.22, N18.31 (primary diagnosis) Check A1c today Continue current treatment unchanged for now - HGB A1C - TSH BLD - COMP METABOLIC PANEL - CBC + DIFF - HGB A1C 2. Essential hypertension - ICD9: 401.9, ICD10: I10 Stable, currently controlled, continue to monitor. 3. Mixed hyperlipidemia - ICD9: 272.2, ICD10: E78.2 Currently well controlled. Continue current treatment unchanged. 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 Acquired hypothyroidism - ICD9: 244.9, ICD10: E03.9 Stable, currently controlled, continue to monitor. 6. Need for shingles vaccine - ICD9: V04.89, ICD10: Z23 Endorse vaccine 7. Screening for diabetic retinopathy - ICD9: V80.2, ICD10: Z13.[address] Espinosa tomorrow 8. Class 3 severe obesity due to excess calories without serious comorbidity with body mass index (BMI) of 40.0 to 44.9 in adult (HCC) - ICD9: 278.01, V85.41, ICD10: E66.01, Z68.41 Endorse portion control, routine exercise as able such as walking. Herbert Jay APRN.GARDENING SUPERVISOR Medical Decision Making: Problems: Moderate: 2+ stable chronic illnesses Data: Unique test(s) ordered: 3+ Risk: Moderate: Drug management Medical Decision Making Level: 4 - Moderate [facility] History of Present illness Narrative* Herbert Jay APRN.CNS - 06/07/2022 3:42 PM EDT Continue with Coumadin dose unchanged and check INR in 1 month * Severino Healy RN - 06/07/2022 10:19 AM EDT patient had inr completed at [facility] patients inr is 2.4 (patients inr range is 2.0-3.0) patient is currently taking 7.5mg Wed,Fri and 5mg all other days patients last dose change was on 02/07/22 due to a low level of 1.8 (dose at that time was 7.5mg Wedand 5mg all other days) patient has had no changes in medication and no missed doses and no change in diet Advised patient to continue on the same dose(s) and that they would only be contacted regarding dosage and follow up instructions after review with provider, if a change is needed. Written instructions given and patient verbalized understanding. Presently scheduled in 1 month (07/12/22) for follow up INR. documented in [facility] encounterDet[facility]06[facility] Miscellaneous Notes* Telephone Encounter - Britney Deleon RN - 05/16/2022 3:47 PM EDT Pt called and is notified of providers message and instructions. Pt voices understanding. Sent information on Paxlovid to Pt in [employer]. Britney Deleon RN * Telephone Encounter - Jose De Jesus Harrington MD - 05/16/2022 3:10 PM EDT Order filed, Make sure she sees the information regarding Paxlovid and also tell her to hold Lipitor because of interaction with Paxlovid. Follow up as needed. Call if any problem tolerating med. * Telephone Encounter - Jose De Jesus Harrington MD - 05/16/2022 3:03 PM EDT Nirmatrelvir/Ritonavir (Paxlovid) Eligibility and Patient Discussion [facility] Formulary Restriction Criteria: Adult outpatients 18 years and older with ALL of the following: [x] Patient has positive SARS-COV-2 viral test (PCR or antigen test) during current illness [x] Patient has symptoms for 5 days or less [x] Not requiring hospitalization at any time for management of COVID-19 [x] Not requiring supplemental oxygen or a change in baseline supplemental oxygen[x] Not utilized for pre-exposure or post-exposure prophylaxis for prevention of COVID-19 [x] Patient does not have severe renal impairment (eGFR < 30 mL/min) or severe hepatic impairment (Child-De Class C) [x] Meeting patient criteria as below: [x] Older age (age >/= 65 years) OR [] 18 years and older with at least one of the following: [] Obesity or being overweight (BMI > 30) [] [] Chronic kidney diseases with eGFR > 30 mL/min and not requiring dialysis [] Diabetes [] Cardiovascular disease including hypertension [] COPD/other chronic respiratory disease [] Sickle cell disease [] Neurodevelopmental disorder (e.g. cerebral palsy) or other conditions that confer medical complexity (e.g. genetic or metabolic syndromes and severe congenital abnormalities) [] Medical related technological dependence (e.g. tracheostomy, gastrostomy, or positive pressure ventilation (not related to COVID-19)) OR [] 18 years and older with immunosuppressive disease or immunosuppressive therapy defined as: [] Immune-mediated inflammatory disease (rheumatoid arthritis, psoriatic arthritis, ankylosing spondylitis, psoriasis, systemic lupus erythematous, idiopathic inflammatory myositis, systemic sclerosis, primary systemic vasculitis, Sjogren s syndrome, inflammatory bowel disease) AND receiving at least one of the following: [] Prednisone (equivalent of > 10 mg daily at time of infusion) [] Rituximab [] 5-ASA derivatives (e.g., sulfasalazine, mesalamine) [] Solid Organ Transplant recipients [] Post-transplant AND on immunosuppression [] Cancer center patients AND at least one of the following: [] On treatment with anti-B cell monoclonal antibodies (e.g., Rituximab, Obinutuzumab, Ofatumumab) [] On treatment with high-intensity chemotherapy regimen [] Myeloablative hematopoietic stem cell transplant recipients within 6 months of transplant or on systemic therapy for rrfcv-qxxmsc-tsnh disease [] CAR T-cell/other cellular therapy recipients within 6 months of infusion [] Hypogammaglobulinemia due to cancer/hematologic disease or its treatment [] Primary immunodeficiency disorder (including common variable immuno immunodeficiency disorder and selective antibody deficiency disorder) Criteria above are met: Yes Date of Positive Test:05/16/23 Date of Symptom Onset: 05/12/22 Patient received COVID vaccine: Yes Drug-Drug interactions reviewed: Yes. Drug interactions were identified and the following actions were taken Hold Lipitor while taking Paxlovid. I have discussed the use of the investigational therapeutic, nirmatrelvir/ritonavir, for the treatment of mild to moderate COVID-19 and its use under Emergency Use Authorization with the patient. The patient was informed that nirmatrelvir/ritonavir is not an FDA approved drug and that it is authorized for use under this Emergency Use Authorization. The patient was also informed of the significant known benefits and potential risks of nirmatrelvir/ritonavir, and the extent to which such potential risks and benefits are unknown. The patient was informed that there is mandatory reporting of all medication errors and serious adverse events potentially related to nirmatrelvir/ritonavir treatment within 7 calendar days from the onset of the event and that events up to 28 days after completion of therapy need to be reported. The discussion included alternatives to receiving nirmatrelvir/rit onavir, including clinical trials, and potential the risks and benefits of those alternatives. The patient was provided electronically with the Fact Sheet for Patients, Parents and Caregivers. The patient was also instructed that in addition to the treatment with nirmatrelvir/ritonavir, he/she should continue to self-isolate and use infection control measures (e.g., wear mask, isolate, social distance, avoid sharing personal items, clean and disinfect high touch surfaces, and frequent h andwashing) according to CDC guidelines. The patient stated understanding and gave verbal consent to proceeding with nirmatrelvir/ritonavir treatment. Jose De Jesus Harrington MD May 16, 2022 3:04 PM * Telephone Encounter - Annabella Moura LPN - 05/16/2022 2:53 PM EDT Called pt and all reviewed she would be willing to start the paxlovid. Please sent to [facility]. She will review my chart whatever you send her. * Telephone Encounter - Jose De Jesus Harrington MD - 05/16/2022 2:41 PM EDT Tomorrow would be Day 5 after onset of symptoms. If she wants RX for Paxlovid, I can send a RX to the local pharmacy. She meets criteria for treating with Paxlovid. If she is not sure,I could file the RX and she may read all the information on [employer] [employer], If she declines, that is fine. Continue to follow usual recommendations for COVID infection and follow up as indicated. * Telephone Encounter - Desiree Dailey RN - 05/16/2022 1:48 PM EDT Protocol Recommends : Call PCP due to patient being High Risk. CDC COVID home care guidelines were reviewed. Instructed patient to call office if symptoms worsen or do not improve. Red flag symptoms reviewed as to when to seek ER. Informed patient that Dr. Harrington would be notified of positive covid result and that we would call her only if provider had further instructions. Thank you. Reason for Disposition HIGH RISK for severe COVID complications (e.g., weak immune system, age > 64 years, obesity withBMI > 25, , chronic lung disease or other chronic medical condition) (Exception: Alreadyseen by PCP and no new or worsening symptoms.) Answer Assessment - Initial Assessment Questions 1. COVID-19 DIAGNOSIS: Patient took home COVID test today and tested positive- was on vacation last week with 26 people 2. COVID-19 EXPOSURE:No known exposure but states she was around multiple people 3. ONSET: 05/12/22 4. WORST SYMPTOM: nasal congestion 5. COUGH: yes-no wheezing, no SOB, no chest tightness or chest pain 6. FEVER:no 7. RESPIRATORY STATUS: no issues 8. [id number]: same 9. HIGH RISK DISEASE:yes-see history 10. VACCINE: yes 11. BOOSTER: yes 12. :n/a 13. OTHER SYMPTOMS: Denies fever, chills, fatigue, headache, loss of smell or taste, muscle pain, or sore throat 14. O2 SATURATION MONITOR: Does not have Protocols used: CORONAVIRUS (COVID-19) DIAGNOSED OR [id number] documented in this encounterDet[facility]06-[facility]22 Instructions* Patient Instructions* Jose De Jesus Harrington MD - 05/16/2022 3:08 PM EDT FACT SHEET FOR PATIENTS, PARENTS, AND CAREGIVERS EMERGENCY USE AUTHORIZATION (EUA) OF PAXLOVID FOR CORONAVIRUS DISEASE 2019 (COVID-19) You are being given this Fact Sheet because your healthcare provider believes it is necessary to provide you with PAXLOVID for the treatment of fiqr-qa-rfwfaqem coronavirus disease (COVID-19) caused by the SARS-CoV-2 virus. This Fact Sheet contains information to help you understand the risks and benefits of taking the PAXLOVID you have received or may receive. The U.S. Food and Drug Administration (FDA) has issued an Emergency Use Authorization (EUA) to makePAXLOVID available during the COVID-19 pandemic (for more details about an EUA please see What is an Emergency Use Authorization? at the end of this document). PAXLOVID is not an FDA-approved medicine in the [place]. Read this Fact Sheet for information about PAXLOVID. Talk to your healthcareprovider about your options or if you have any questions. It is your choice to take PAXLOVID. What is COVID-19? COVID-19 is caused by a virus called a coronavirus. You can get COVID-19 through close contact withanother person who has the virus. COVID-19 illnesses have ranged from very qlsz-ir-wexlxj, including illness resulting in . While information so far suggests that most COVID-19 illness is mild, serious illness can happen and maycause some of your other medical conditions to become worse. Older people and people of all ages with severe, long lasting (chronic) medical conditions like heart disease, lung disease, and diabetes,for example seem to be at higher risk of being hospitalized for COVID-19. What is PAXLOVID? PAXLOVID is an investigational medicine used to treat xeeh-ig-oazqwkqs COVID-19 in adults and children [12 years of age and older weighing at least 88 pounds (40 kg)] with positive results of direct SARS-CoV-2 viral testing, and who are at high risk for progression to severe COVID-19, including hospitalization or . PAXLOVID is investigational because it is still being studied. There is limited information about the safety and effectiveness of using PAXLOVID to treat people with flwp-rv-pativgon COVID-19. The FDA has authorized the emergency use of PAXLOVID for the treatment of zfob-tz-vcxavffa COVID-19in adults and children [12 years of age and older weighing at least 88 pounds (40 kg)] with a positive test for the virus that causes COVID-19, and who are at high risk for progression to severe COVID-19, including hospitalization or , under an EUA. 1 Revised: 15 February 2022 What should I tell my healthcare provider before I take PAXLOVID? Tell your healthcare provider if you: Have any allergies Have liver or kidney disease Are or plan to become Are a child Have any serious illnesses Tell your healthcare provider about all the medicines you take, including prescription and yrlz-rdb-rgzyjtd medicines, vitamins, and herbal supplements. Some medicines may interact with PAXLOVID and may cause serious side effects. Keep a list of your medicines to show your healthcare provider and pharmacist when you get a new medicine. You can ask your healthcare provider or pharmacist for a list of medicines that interact with PAXLOVID. Do not start taking a new medicine without telling your healthcare provider. Your healthcare provider can tell you if it is safe to take PAXLOVID with other medicines. Tell your healthcare provider if you are taking combined hormonal contraceptive. PAXLOVID may affect how your control pills work. Females who are able to become should use another effective alternative form of contraception or an additional barrier method of contraception. Talk to your healthcare provider if you have any questions about contraceptive methods thatmight be right for you. How do I take PAXLOVID? PAXLOVID consists of 2 medicines: nirmatrelvir and ritonavir. Take 2 pink tablets of nirmatrelvir with 1 white tablet of ritonavir by mouth 2 times each day (in the morning and in the evening) for 5 days. For each dose, take all 3 tablets at the same time. If you have kidney disease, talk to your healthcare provider. You may need a different dose. Swallow the tablets whole. Do not chew, break, or crush the tablets. Take PAXLOVID with or without food. Do not stop taking PAXLOVID without talking to your healthcare provider, even if you feel better. If you miss a dose of PAXLOVID within 8 hours of the time it is usually taken, take it as soon as you remember. If you miss a dose by more than 8 hours, skip the missed dose and take the next dose atyour regular time. Do not take 2 doses of PAXLOVID at the same time. If you take too much PAXLOVID, call your healthcare provider or go to the nearest hospital emergency room right away. If you are taking a ritonavir-or cobicistat-containing medicine to treat hepatitis C or Human Immunodeficiency Virus (HIV), you should continue to take your medicine as prescribed by your healthcare provider. Talk to your healthcare provider if you do not feel better or if you feel worse after 5 days. Who should generally not take PAXLOVID? Do not take PAXLOVID if: You are allergic to nirmatrelvir, ritonavir, or any of the ingredients in PAXLOVID You are taking any of the following medicines: Alfuzosin Pethidine, propoxyphene Ranolazine Amiodarone, dronedarone, flecainide, propafenone, quinidine Colchicine Lurasidone, pimozide, clozapine Dihydroergotamine, ergotamine, methylergonovine Lovastatin, simvastatin Sildenafil (Revatio ) for pulmonary arterial hypertension (PAH) Triazolam, oral midazolam Apalutamide Carbamazepine, phenobarbital, phenytoin Rifampin Nespelem s Wort (hypericum perforatum) Taking PAXLOVID with these medicines may cause serious or life-threatening side effects or affect how PAXLOVID works. These are not the only medicines that may cause serious side effects if taken with PAXLOVID. PAXLOVID may increase or decrease the levels of multiple other medicines. It is very important to tell your healthcare provider about all of the medicines you are taking because additional laboratory tests or changes in the dose of your other medicines may be necessary while you are taking PAXLOVID. Your healthcare provider may also tell you about specific symptoms to watch out for that may indicate that you need to stop or decrease the dose of some of your other medicines. What are the important possible side effects of PAXLOVID? Possible side effects of PAXLOVID are: Allergic Reactions. Allergic reactions can happen in people taking PAXLOVID, even after only 1 dose. Stop taking PAXLOVID and call your healthcare provider right away if you get any of the following symptoms of an allergic reaction: hives trouble swallowing or breathing swelling of the mouth, lips, or face throat tightness hoarseness skin rash Liver Problems. Tell your healthcare provider right away if you have any of these signs and symptoms of liver problems: loss of appetite, yellowing of your skin and the whites of eyes (jaundice), dark-colored urine, pale colored stools and itchy skin, stomach area (abdominal) pain. Resistance to HIV Medicines. If you have untreated HIV infection, PAXLOVID may lead to some HIV medicines not working as well in the future. Other possible side effects include: altered sense of taste diarrhea high blood pressure muscle aches These are not all the possible side effects of PAXLOVID. Not many people have taken PAXLOVID. Serious and unexpected side effects may happen. PAXLOVID is still being studied, so it is possible that all of the risks are not known at this time. What other treatment choices are there? Veklury (remdesivir) is FDA-approved for the treatment of hiet-lk-axlwjwif COVID-19 in certain adults and children. Talk with your doctor to see if Veklury is appropriate for you. Like PAXLOVID, FDA may also allow for the emergency use of other medicines to treat people with COVID-19. Go to https://www.fda.gov/twyfqvbcz-jlbiqaubalmf-dunyxzawyxa/vfb-nraqh-fuuswpmexb-and- policy-framework/vaccoqfwq-aig-winzkqbagqtlw for information on the emergency use of other medicines that are authorized by FDA to treat people with COVID-19. Your healthcare provider may talk with you aboutclinical trials for which you may be eligible. It is your choice to be treated or not to be treated with PAXLOVID. Should you decide not to receive it or for your child not to receive it, it will not change your standard medical care. What if I am or ? There is director of diagnostic imaging treating women or mothers with PAXLOVID. For a motherand unborn baby, the benefit of taking PAXLOVID may be greater than the risk from the treatment. Ifyou are , discuss your options and specific situation with your healthcare provider. It is recommended that you use effective barrier contraception or do not have sexual activity whiletaking PAXLOVID. If you are , discuss your options and specific situation with your healthcare provider. How do I report side effects with PAXLOVID? Contact your healthcare provider if you have any side effects that bother you or do not go away. Report side effects to FDA MedWatch at www.fda.gov/medwatch or call 5-159-CWW9474 or you can reportside effects to [employer]. at the contact information provided below. Website Fax number Telephone number wwwPartender How should I store PAXLOVID? Store PAXLOVID tablets at room temperature, between 68?F to 77?F (20?C to 25?C). How can I learn more about COVID-19? Ask your healthcare provider. Visit https://www.cdc.gov/COVID19. Contact your local or state public health department. What is an Emergency Use Authorization (EUA)? The [place] FDA has made PAXLOVID available under an emergency access mechanism called an Emergency Use Authorization (EUA). The EUA is supported by a [place] Coordinator of Health and Human Service (HHS) declaration that circumstances exist to justify the emergency use of drugs and biological productsduring the COVID-19 pandemic. PAXLOVID for the treatment of dzmr-ij-moxczqgl COVID-19 in adults and children [12 years of age andolder weighing at least 88 pounds (40 kg)] with positive results of direct SARS-CoV-2 viral testing, and who are at high risk for progression to severe COVID-19, including hospitalization or , has not undergone the same type of review as an FDA-approved product. In issuing an EUA under the COVID-19 public health emergency, the FDA has determined, among other things, that based on the total amount of scientific evidence available including data from adequate and well-controlled clinical trials, if available, it is reasonable to believe that the product may be effective for diagnosing, treating, or preventing COVID-19, or a serious or life-threatening disease or condition caused by COVID-19; that the known and potential benefits of the product, when used to diagnose, treat, or prevent such disease or condition, outweigh the known and potential risks of such product; and that there are no adequate, approved, and available alternatives. All of these criteria must be met to allow for the product to be used in the treatment of patients during the COVID-19 pandemic. The EUA for PAXLOVID is in effect for the duration of the COVID-19 declaration justifying emergency use of this product, unless terminated or revoked (after which the products may no longer be used under the EUA). Additional Information For general questions, visit the website or call the telephone number provided below. Website Telephone number [email or web address] (8-834-Q68-RWLN) You can also go to www.[employer] or call for more information. Pfizer Distributed by [employer] [place] [address] [id number] Revised: 15 February 2022 [facility] History of Present illness Narrative* Severino Healy RN - 05/03/2022 12:23 PM EDT pcp agrees * Severino Healy RN - 05/03/2022 10:22 AM EDT patient had inr completed at [facility] patients inr is 2.6 (patients inr range is 2.0-3.0) patient is currently taking 7.5mg Wed,Fri and 5mg all other days patients last dose change was on 02/07/22 due to a low level of 1.8 (dose at that time was 7.5mg Wedand 5mg all other days) patient has had no changes in medication and no missed doses and no change in diet Advised patient to continue on the same dose(s) and that they would only be contacted regarding dosage and follow up instructions after review with provider, if a change is needed. Written instructions given and patient verbalized understanding. Presently scheduled in 1 month (06/07/22) for follow up INR. documented in [facility] History of Present illness Narrative* Severino Healy RN - 02/22/2022 4:20 PM EDT per pcp she agrees with information * Severino Healy RN - 02/22/2022 10:28 AM EDT patient had inr completed at [facility] patients inr is 2.4 (patients inr range is 2.0-3.0) patient is currently taking 7.5mg Wed,Fri and 5mg all other days patients last dose change was on 02/07/22 due to a low level of 1.8 (dose at that time was 7.5mg Wedand 5mg all other days) patient has had no changes in medication and no missed doses and no change in diet Advised patient to continue on the same dose(s) and that they would only be contacted regarding dosage and follow up instructions after review with provider, if a change is needed. Written instructions given and patient verbalized understanding. Presently scheduled in 2 weeks (4/8/22) for follow up INR since this is the first normal reading since dose change documented in [facility]Det[facility] History of Present illness Narrative* Jose De Jesus Harrington MD - 12/18/2021 9:23 AM EST This note was created using [employer]. Subjective Yobani Reid is a 76 year old female. Patient presents with: Follow Up SUBJECTIVE: Yobani Reid is a 76 year old year old lady here today for 8 month follow up appointment for review of medical conditions. Noted that had labs through [facility]. Blood sugars lo,78, 86 December. Prior also 70 to 80s. Every Friday fasting in AM. 5 to 6 days a week on treadmill. 20 to 30 minutes per day. Reads while walking. Following with Dr. Peters for urologist.To have cystoscopy since not responding to multiple meds. Dr. Liriano --nurse esthetician. Seen recently. Gets DM shoes ordered through him. Memory issues noted. Names that cannot recall right away. Recalling numbers from treadmill for log a few steps later. 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 vaginitis/post-men. Postsurgical percutaneous transluminal coronary angioplasty status 12/15/2009 Snoring Type II or unspecified type diabetes mellitus without mention of complication, not stated as uncontrolled 02/21/2014 Unspecified essential hypertension Essential hypertension Unspecified hypothyroidism Hypothyroidism Unspecified urinary incontinence urge Current Outpatient Medications Medication Sig vibegron (GEMTESA) 75 mg tablet Take 75 mg by mouth once daily. atorvastatin (LIPITOR) 40 mg tablet Take 1 tablet by mouth daily at bedtime. For cholesterol. atenolol (TENORMIN) 25 mg tablet Take 1 tablet by mouth once daily. fosinopril sodium (MONOPRIL) 40 mg tablet Take 1 tablet by mouth once daily. Fenofibrate (LOFIBRA) 160 mg tablet Take 1 tablet by mouth once daily. isosorbide mononitrate ER (IMDUR) 30 mg 24 hr tablet Take 1 tablet by mouth once daily. hydrocortisone 2.5 % ointment Apply 1 application to affected area twice daily. Cholecalciferol, Vitamin D3, 50 mcg (2,000 unit) cap Take 1 capsule by mouth once daily. metFORMIN ER (GLUCOPHAGE XR) 500 mg 24 hr tablet Take 1 tablet by mouth once daily. With meal levothyroxine (SYNTHROID) 112 mcg tablet Take 1 tablet by mouth once daily. warfarin (COUMADIN) 5 mg tablet 5mg Mon,Wed and 7.5mg all other days or as directed warfarin (COUMADIN) 5 mg tablet Take 5 mg Mon, Wed and 7.5 mg all other days or as directed blood sugar diagnostic (BLOOD GLUCOSE TEST) test strip Easy Max Test blood sugar(s) one time daily and as needed. Dx: Type 2 DM - Controlled E11.22 N18.3 Insulin: No Blood-Glucose Meter monitoring kit Glucose Meter of Choice - Kit - Dx: Other DM Code E11.22 N18.3 nitroglycerin sublingual (NITROQUICK) 0.4 mg SL tablet Dissolve 1 tablet under the tongue as needed. DISSOLVE ON TONGUE FOR CHEST PAIN. IF NO PAIN RELIEF, CALL 911 meclizine (ANTIVERT) 25 mg tab Take 1 tablet by mouth every 6 hours as needed (dizziness). (prescription given from ER) magnesium oxide (MAG-OX) 400 mg tablet Take 2 tablets by mouth twice daily. Lancets lancets Use as instructed--Check sugars up to once daily. DX: E11.9, Not insulin requiring aspirin(ECOTRIN LOW STRENGTH 81 MG TAB) Take one(1) tablet daily. oxymetazoline hcl(AFRIN SINUS NO DRIP 0.05 % NASAL MIST) as necessary THERAPEUTIC MULTIVITAMIN TAB Take one tablet by mouth daily. oxybutynin ER (DITROPAN XL) 15 mg 24 hr Extended Rel Tab Take 1 tablet by mouth once daily. No current facility-administered medications for this visit. Review of Systems Objective BP 122/68 Pulse 74 Wt 116.1 kg (256 lb) BMI 43.94 kg/m Last 5 Encounter BP Readings: Date: BP: 12/18/2021 122/68 04/18/2021 108/62 09/12/2020 106/62 01/12/2020 120/64 08/05/2019 124/74 Last 5 Encounter Wt Readings: Date: Wt: 12/18/2021 116.1 kg (256 lb) 04/18/2021 113.4 kg (250 lb) 09/12/2020 113.4 kg (250 lb) 01/12/2020 120.2 kg (265 lb) 08/05/2019 126.1 kg (278 lb) Physical Exam Constitutional: Appearance: Normal appearance. HENT: Head: Normocephalic. Eyes: Conjunctiva/sclera: Conjunctivae normal. Cardiovascular: Rate and Rhythm: Normal rate and regular rhythm. Heart sounds: Normal heart sounds. Pulmonary: Effort: Pulmonary effort is normal. Breath sounds: Normal breath sounds. Musculoskeletal: Right lower leg: Edema (Trace) present. Left lower leg: Edema (trace) present. Skin: General: Skin is warm and dry. Neurological: General: No focal deficit present. Mental Status: She is alert and oriented to person, place, and time. Psychiatric: Mood and Affect: Mood normal. Behavior: Behavior normal. Thought Content: Thought content normal. Judgment: Judgment normal. Feet:Shoes and socks removed, normal distal pulses and sensitive to 10 gm monofilament Hemoglobin A1C (%) Date Value 04/10/2021 6.2 09/01/2020 6.3 01/04/2020 6.1 06/22/2019 6.2 12/09/2018 6.2 Assessment and Plan Encounter Diagnosis ICD-10-CM 1. Controlled type 2 diabetes mellitus with stage 3 chronic kidney disease, without long-term current use of insulin (HCC) E11.22 HGB A1C N18.30 ALBUMIN/CREAT RATIO RND UR BASIC METABOLIC PNL 2. Essential hypertension I10 CBC BASIC METABOLIC PNL 3. Acquired hypothyroidism E03.9 TSH BLD T4 FREE/FREE THYROX 4. Mixed hyperlipidemia E78.2 5. Hypomagnesemia E83.42 MAGNESIUM BLD 6. Vitamin D deficiency E55.9 VITAMIN D 25 HYDROXY 7. nursing home current use of 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 Z79.01 CBC 8. Encounter for long-term current use of medication Z79.899 HGB A1C MAGNESIUM BLD CBC VITAMIN D 25 HYDROXY ALBUMIN/CREAT RATIO RND UR TSH BLD T4 FREE/FREE THYROX BASIC METABOLIC PNL ASSESSMENT/PLAN: 1. Controlled type 2 diabetes mellitus with stage 3 chronic kidney disease, without long-term current use of insulin (HCC) - ICD9: 250.40, 585.3, ICD10: E11.22, N18.30 (primary diagnosis) Controlled. - Continue current medications - Daily Asprin therapy recommended - HGB A1C - ALBUMIN/CREAT RATIO RND UR - BASIC METABOLIC PNL 2. Essential hypertension - ICD9: 401.9, ICD10: I10 - good control - Continue current medication(s) - Recommended regular aerobic exercise. - Goal of BP <130/80 - CBC - BASIC METABOLIC PNL 3. Acquired hypothyroidism - ICD9: 244.9, ICD10: E03.9 Clinically euthyroid. TSH fine. Continue to adjust dose of replacement as indicated based on symptoms and labs. - TSH BLD - T4 FREE/FREE THYROX 4. Mixed hyperlipidemia - ICD9: 272.2, ICD10: E78.2 - suboptimal control - Continue current medication. - Encouraged following a low fat, low cholesterol diet. - Discussed the benefits of regular aerobic exercise and weight loss. - Encouraged following a low carbohydrate, healthy oil intake diet. 5. Hypomagnesemia - ICD9: 275.2, ICD10: E83.42 Further evaluation and treatment as indicated. - MAGNESIUM BLD 6. 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 Encounter for long-term current use of medication - ICD9: V58.69, ICD10: Z79.899 - HGB A1C - MAGNESIUM BLD - CBC - VITAMIN D 25 HYDROXY - ALBUMIN/CREAT RATIO RND UR - TSH BLD - T4 FREE/FREE THYROX - BASIC METABOLIC PNL I spent a total of at least 35 minutes on the date of the service which included preparing to see the patient, [id number] patient care, completing clinical documentation, obtaining and/or reviewingseparately obtained history, performing a medically appropriate examination, counseling and educating the patient/family/caregiver and ordering medications, tests, or procedures. 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 25 chronic Contusion of hip, right acut e Fall acute Leg pain, right acute [facility] Work Phone: 1(999) 102-822511-25-2019 Evaluation note* Diagnosis Onset Date Resolution Status Essential hypertension chron ic nursing home current use of 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 chronic Mixed hyperlipidemia chronic 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 25 chronic Debility acute Fall acute Leg pain, right acute Contusion, hip and thigh acu te Debility acute Fall acute History of pulmonary embolism 2016 acute Leg pain, right acute Lumbar strain acute Overactive bladder acute Supratherapeutic INR acute 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 DM2 (diabetes mellitus, type 2) chronic Essential hypertension chron ic GERD (gastroesophageal reflux disease) chronic Hypothyroidism 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 Mixed hyperlipidemia chronic Obesity chronic 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 25 chronic [facility] Work Phone: [phone]) 590-312411-25-2019 Evaluation note* Diagnosis Onset Date Resolution Status Essential hypertension chron ic 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 Mixed hyperlipidemia chronic 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 25 chronic Debility acute Fall resolved Leg pain, right resolved Debility acute History of pulmonary embolism 2017 acute Overactive bladder acute 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 DM2 (diabetes mellitus, type 2) chronic Essential hypertension chron ic GERD (gastroesophageal reflux disease) chronic Hypothyroidism 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 Mixed hyperlipidemia chronic Obesity chronic 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 25 chronic Contusion, hip and thigh res olved Fall resolved Leg pain, right resolved Lumbar strain resolved Supratherapeutic INR resolve d [facility] Work Phone: 1(604) 149-129703-24-2014 History of Past illness Narrative* Problem Noted Date Resolved Date Diabetes mellitus type 2, controlled, without co mplications 02/21/2014 01/15/2018 Occult GI bleeding 03/03/2013 08/23/2013 Impaired fasting glucose 11/13/2005 015 Allergic rhinitis, cause unspecified 06/06/2009 Overview: Allergic rhinitis documented as of this encounter (statuses as of 02/22/2022) [facility] of Past illness Narrative* Problem Noted Date Resolved Date Diabetes mellitus type 2, controlled, without co mplications 02/21/2014 01/15/2018 Occult GI bleeding 03/03/2013 08/23/2013 Impaired fasting glucose 11/13/2005 015 Allergic rhinitis, cause unspecified 06/06/2009 Overview: Allergic rhinitis documented as of this encounter (statuses as of 02/25/2022) [facility] of Past illness Narrative* Problem Noted Date Resolved Date Diabetes mellitus type 2, controlled, without co mplications 02/21/2014 01/15/2018 Occult GI bleeding 03/03/2013 08/23/2013 Impaired fasting glucose 11/13/2005 015 Allergic rhinitis, cause unspecified 06/06/2009 Overview: Allergic rhinitis documented as of this encounter (statuses as of 05/03/2022) [facility] of [facility] illness Narrative* Problem Noted Date Resolved Date Diabetes mellitus type 2, controlled, without co mplications 02/21/2014 01/15/2018 Occult GI bleeding 03/03/2013 08/23/2013 Impaired fasting glucose 11/13/2005 015 Allergic rhinitis, cause unspecified 06/06/2009 Overview: Allergic rhinitis documented as of this encounter (statuses as of 05/16/2022) [facility] illness Narrative* Problem Noted Date Resolved Date Diabetes mellitus type 2, controlled, without co mplications 02/21/2014 01/15/2018 Occult GI bleeding 03/03/2013 08/23/2013 Impaired fasting glucose 11/13/2005 015 Allergic rhinitis, cause unspecified 06/06/2009 Overview: Allergic rhinitis documented as of this encounter (statuses as of 06/07/2022) [facility] Narrative* Problem Noted Date Resolved Date Diabetes mellitus type 2, controlled, without co mplications 02/21/2014 01/15/2018 Occult GI bleeding 03/03/2013 08/23/2013 Impaired fasting glucose 11/13/2005 015 Allergic rhinitis, cause unspecified 06/06/2009 Overview: Allergic rhinitis documented as of this encounter (statuses as of 06/18/2022) [facility] Narrative* Problem Noted Date Resolved Date Diabetes mellitus type 2, controlled, without co mplications 02/21/2014 01/15/2018 Occult GI bleeding 03/03/2013 08/23/2013 Impaired fasting glucose 11/13/2005 015 Allergic rhinitis, cause unspecified 06/06/2009 Overview: Allergic rhinitis documented as of this encounter (statuses as of 07/12/2022) [facility] Narrative* Problem Noted Date Resolved Date Diabetes mellitus type 2, controlled, without co mplications 02/21/2014 01/15/2018 Occult GI bleeding 03/03/2013 08/23/2013 Impaired fasting glucose 11/13/2005 015 Allergic rhinitis, cause unspecified 06/06/2009 Overview: Allergic rhinitis documented as of this encounter (statuses as of 07/18/2022) [facility] illness Narrative* Problem Noted Date Resolved Date Diabetes mellitus type 2, controlled, without co mplications 02/21/2014 01/15/2018 Occult GI bleeding 03/03/2013 08/23/2013 Impaired fasting glucose 11/13/2005 015 Allergic rhinitis, cause unspecified 06/06/2009 Overview: Allergic rhinitis documented as of this encounter (statuses as of 07/19/2022) [facility] Narrative* Problem Noted Date Resolved Date Diabetes mellitus type 2, controlled, without co mplications 02/21/2014 01/15/2018 Occult GI bleeding 03/03/2013 08/23/2013 Impaired fasting glucose 11/13/2005 015 Allergic rhinitis, cause unspecified 06/06/2009 Overview: Allergic rhinitis documented as of this encounter (statuses as of 07/26/2022) [facility] Narrative* Problem Noted Date Resolved Date Diabetes mellitus type 2, controlled, without co mplications 02/21/2014 01/15/2018 Occult GI bleeding 03/03/2013 08/23/2013 Impaired fasting glucose 11/13/2005 015 Allergic rhinitis, cause unspecified 06/06/2009 Overview: Allergic rhinitis documented as of this encounter (statuses as of 07/30/2022) [facility] Narrative* Problem Noted Date Resolved Date Diabetes mellitus type 2, controlled, without co mplications 02/21/2014 01/15/2018 Occult GI bleeding 03/03/2013 08/23/2013 Impaired fasting glucose 11/13/2005 015 Allergic rhinitis, cause unspecified 06/06/2009 Overview: Allergic rhinitis documented as of this encounter (statuses as of 08/02/2022) [facility] Narrative* Problem Noted Date Resolved Date Diabetes mellitus type 2, controlled, without co mplications 02/21/2014 01/15/2018 Occult GI bleeding 03/03/2013 08/23/2013 Impaired fasting glucose 11/13/2005 015 Allergic rhinitis, cause unspecified 06/06/2009 Overview: Allergic rhinitis documented as of this encounter (statuses as of 08/06/2022) [facility] Narrative* Problem Noted Date Resolved Date Diabetes mellitus type 2, controlled, without co mplications 02/21/2014 01/15/2018 Occult GI bleeding 03/03/2013 08/23/2013 Impaired fasting glucose 11/13/2005 015 Allergic rhinitis, cause unspecified 06/06/2009 Overview: Allergic rhinitis documented as of this encounter (statuses as of 08/06/2022) [facility] Narrative* Problem Noted Date Resolved Date Diabetes mellitus type 2, controlled, without co mplications 02/21/2014 01/15/2018 Occult GI bleeding 03/03/2013 08/23/2013 Impaired fasting glucose 11/13/2005 015 Allergic rhinitis, cause unspecified 06/06/2009 Overview: Allergic rhinitis documented as of this encounter (statuses as of 08/10/2022) [facility] Narrative* Problem Noted Date Resolved Date Diabetes mellitus type 2, controlled, without co mplications 02/21/2014 01/15/2018 Occult GI bleeding 03/03/2013 08/23/2013 Impaired fasting glucose 11/13/2005 015 Allergic rhinitis, cause unspecified 06/06/2009 Overview: Allergic rhinitis documented as of this encounter (statuses as of 08/15/2022) [facility] History of Past illness Narrative* Problem Noted Date Resolved Date Diabetes mellitus type 2, controlled, without co mplications 02/21/2014 01/15/2018 Occult GI bleeding 03/03/2013 08/23/2013 Impaired fasting glucose 11/13/2005 015 Allergic rhinitis, cause unspecified 06/06/2009 Overview: Allergic rhinitis documented as of this encounter (statuses as of 08/29/2022) [facility] History of Past illness Narrative* Problem Noted Date Resolved Date Diabetes mellitus type 2, controlled, without co mplications 02/21/2014 01/15/2018 Occult GI bleeding 03/03/2013 08/23/2013 Impaired fasting glucose 11/13/2005 015 Allergic rhinitis, cause unspecified 06/06/2009 Overview: Allergic rhinitis documented as of this encounter (statuses as of 08/29/2022) [facility] History of Past illness Narrative* Problem Noted Date Resolved Date Diabetes mellitus type 2, controlled, without co mplications 02/21/2014 01/15/2018 Occult GI bleeding 03/03/2013 08/23/2013 Impaired fasting glucose 11/13/2005 015 Allergic rhinitis, cause unspecified 06/06/2009 Overview: Allergic rhinitis documented as of this encounter (statuses as of 09/26/2022) [facility] History of Past illness Narrative* Problem Noted Date Resolved Date Diabetes mellitus type 2, controlled, without co mplications 02/21/2014 01/15/2018 Occult GI bleeding 03/03/2013 08/23/2013 Impaired fasting glucose 11/13/2005 015 Allergic rhinitis, cause unspecified 06/06/2009 Overview: Allergic rhinitis documented as of this encounter (statuses as of 10/02/2022) [facility] History of Past illness Narrative* Problem Noted Date Resolved Date Diabetes mellitus type 2, controlled, without co mplications 02/21/2014 01/15/2018 Occult GI bleeding 03/03/2013 08/23/2013 Impaired fasting glucose 11/13/2005 015 Allergic rhinitis, cause unspecified 06/06/2009 Overview: Allergic rhinitis documented as of this encounter (statuses as of 10/31/2022) [facility] History of Past illness Narrative* Problem Noted Date Resolved Date Diabetes mellitus type 2, controlled, without co mplications 02/21/2014 01/15/2018 Occult GI bleeding 03/03/2013 08/23/2013 Impaired fasting glucose 11/13/2005 015 Allergic rhinitis, cause unspecified 06/06/2009 Overview: Allergic rhinitis documented as of this encounter (statuses as of 11/22/2022) [facility] History of Past illness Narrative* Problem Noted Date Resolved Date Diabetes mellitus type 2, controlled, without co mplications 02/21/2014 01/15/2018 Occult GI bleeding 03/03/2013 08/23/2013 Impaired fasting glucose 11/13/2005 015 Allergic rhinitis, cause unspecified 06/06/2009 Overview: Allergic rhinitis documented as of this encounter (statuses as of 12/18/2022) [facility] History of Past illness Narrative* Problem Noted Date Resolved Date Diabetes mellitus type 2, controlled, without co mplications 02/21/2014 01/15/2018 Occult GI bleeding 03/03/2013 08/23/2013 Impaired fasting glucose 11/13/2005 015 Allergic rhinitis, cause unspecified 06/06/2009 Overview: Allergic rhinitis documented as of this encounter (statuses as of 01/21/2023) [facility] History of Past illness Narrative* Problem Noted Date Resolved Date Diabetes mellitus type 2, controlled, without co mplications 02/21/2014 01/15/2018 Occult GI bleeding 03/03/2013 08/23/2013 Impaired fasting glucose 11/13/2005 015 Allergic rhinitis, cause unspecified 06/06/2009 Overview: Allergic rhinitis documented as of this encounter (statuses as of 02/13/2023) [facility] History of Past illness Narrative* Problem Noted Date Resolved Date Diabetes mellitus type 2, controlled, without co mplications 02/21/2014 01/15/2018 Occult GI bleeding 03/03/2013 08/23/2013 Impaired fasting glucose 11/13/2005 015 Allergic rhinitis, cause unspecified 06/06/2009 Overview: Allergic rhinitis documented as of this encounter (statuses as of 02/21/2023) [facility] History of Past illness Narrative* Problem Noted Date Resolved Date Diabetes mellitus type 2, controlled, without co mplications 02/21/2014 01/15/2018 Occult GI bleeding 03/03/2013 08/23/2013 Impaired fasting glucose 11/13/2005 015 Allergic rhinitis, cause unspecified 06/06/2009 Overview: Allergic rhinitis documented as of this encounter (statuses as of 02/24/2023) [facility] History of Past illness Narrative* Problem Noted Date Resolved Date Diabetes mellitus type 2, controlled, without co mplications 02/21/2014 01/15/2018 Occult GI bleeding 03/03/2013 08/23/2013 Impaired fasting glucose 11/13/2005 015 Allergic rhinitis, cause unspecified 06/06/2009 Overview: Allergic rhinitis documented as of this encounter (statuses as of 03/08/2023) [facility] History of Past illness Narrative* Problem Noted Date Resolved Date Diabetes mellitus type 2, controlled, without co mplications 02/21/2014 01/15/2018 Occult GI bleeding 03/03/2013 08/23/2013 Impaired fasting glucose 11/13/2005 015 Allergic rhinitis, cause unspecified 06/06/2009 Overview: Allergic rhinitis documented as of this encounter (statuses as of 03/11/2023) [facility] History of Past illness Narrative* Problem Noted Date Resolved Date Diabetes mellitus type 2, controlled, without co mplications 02/21/2014 01/15/2018 Occult GI bleeding 03/03/2013 08/23/2013 Impaired fasting glucose 11/13/2005 015 Allergic rhinitis, cause unspecified 06/06/2009 Overview: Allergic rhinitis documented as of this encounter (statuses as of 03/14/2023) [facility] History of Past illness Narrative* Problem Noted Date Resolved Date Diabetes mellitus type 2, controlled, without co mplications 02/21/2014 01/15/2018 Occult GI bleeding 03/03/2013 08/23/2013 Impaired fasting glucose 11/13/2005 015 Allergic rhinitis, cause unspecified 06/06/2009 Overview: Allergic rhinitis documented as of this encounter (statuses as of 03/15/2023) [facility] History of Past illness Narrative* Problem Noted Date Resolved Date Diabetes mellitus type 2, controlled, without co mplications 02/21/2014 01/15/2018 Occult GI bleeding 03/03/2013 08/23/2013 Impaired fasting glucose 11/13/2005 015 Allergic rhinitis, cause unspecified 06/06/2009 Overview: Allergic rhinitis documented as of this encounter (statuses as of 03/21/2023) [facility] History of Past illness Narrative* Problem Noted Date Resolved Date Diabetes mellitus type 2, controlled, without co mplications 02/21/2014 01/15/2018 Occult GI bleeding 03/03/2013 08/23/2013 Impaired fasting glucose 11/13/2005 015 Allergic rhinitis, cause unspecified 06/06/2009 Overview: Allergic rhinitis documented as of this encounter (statuses as of 04/04/2023) [facility] History of Past illness Narrative* Problem Noted Date Resolved Date Diabetes mellitus type 2, controlled, without co mplications 02/21/2014 01/15/2018 Occult GI bleeding 03/03/2013 08/23/2013 Impaired fasting glucose 11/13/2005 015 Allergic rhinitis, cause unspecified 06/06/2009 Overview: Allergic rhinitis documented as of this encounter (statuses as of 04/08/2023) [facility] History of Past illness Narrative* Problem Noted Date Resolved Date Diabetes mellitus type 2, controlled, without co mplications 02/21/2014 01/15/2018 Occult GI bleeding 03/03/2013 08/23/2013 Impaired fasting glucose 11/13/2005 015 Allergic rhinitis, cause unspecified 06/06/2009 Overview: Allergic rhinitis documented as of this encounter (statuses as of 05/02/2023) [facility] History of Past illness Narrative* Problem Noted Date Resolved Date Diabetes mellitus type 2, controlled, without co mplications 02/21/2014 01/15/2018 Occult GI bleeding 03/03/2013 08/23/2013 Impaired fasting glucose 11/13/2005 015 Allergic rhinitis, cause unspecified 06/06/2009 Overview: Allergic rhinitis documented as of this encounter (statuses as of 05/30/2023) [facility] History of Past illness Narrative* Problem Noted Date Diagnosed Date Resolved Date Diabetes mellitus type 2, co ntrolled, without complications 02/21/2014 01/15/2018 Occult GI bleeding 03/03/2013 3 Impaired fasting glucose 11/13/200505/2015 Allergic rhinitis, cause unspecified 06/06/2009 Overview: Allergic rhinitis documented as of this encounter (statuses as of 06/18/2023) [facility] History of Past illness Narrative* Problem Noted Date Diagnosed Date Resolved Date Diabetes mellitus type 2, co ntrolled, without complications 02/21/2014 01/15/2018 Occult GI bleeding 03/03/2013 3 Impaired fasting glucose 11/13/200505/2015 Allergic rhinitis, cause unspecified 06/06/2009 Overview: Allergic rhinitis documented as of this encounter (statuses as of 07/18/2023) [facility] History of Past illness Narrative* Problem Noted Date Diagnosed Date Resolved Date Diabetes mellitus type 2, co ntrolled, without complications 02/21/2014 01/15/2018 Occult GI bleeding 03/03/2013 3 Impaired fasting glucose 11/13/200505/2015 Allergic rhinitis, cause unspecified 06/06/2009 Overview: Allergic rhinitis documented as of this encounter (statuses as of 08/22/2023) [facility] History of Past illness Narrative* Problem Noted Date Diagnosed Date Resolved Date Diabetes mellitus type 2, co ntrolled, without complications 02/21/2014 01/15/2018 Occult GI bleeding 03/03/2013 3 Impaired fasting glucose 11/13/200505/2015 Allergic rhinitis, cause unspecified 06/06/2009 Overview: Allergic rhinitis documented as of this encounter (statuses as of 09/02/2023) [facility] History of Past illness Narrative* Problem Noted Date Diagnosed Date Resolved Date Diabetes mellitus type 2, co ntrolled, without complications 02/21/2014 01/15/2018 Occult GI bleeding 03/03/2013 3 Impaired fasting glucose 11/13/200505/2015 Allergic rhinitis, cause unspecified 06/06/2009 Overview: Allergic rhinitis documented as of this encounter (statuses as of 09/10/2023) [facility] History of Past illness Narrative* Problem Noted Date Diagnosed Date Resolved Date Diabetes mellitus type 2, co ntrolled, without complications 02/21/2014 01/15/2018 Occult GI bleeding 03/03/2013 3 Impaired fasting glucose 11/13/200505/2015 Allergic rhinitis, cause unspecified 06/06/2009 Overview: Allergic rhinitis documented as of this encounter (statuses as of 09/19/2023) [facility] History of Past illness Narrative* Problem Noted Date Diagnosed Date Resolved Date Diabetes mellitus type 2, co ntrolled, without complications 02/21/2014 01/15/2018 Occult GI bleeding 03/03/2013 3 Impaired fasting glucose 11/13/200505/2015 Allergic rhinitis, cause unspecified 06/06/2009 Overview: Allergic rhinitis documented as of this encounter (statuses as of 09/19/2023) [facility] History of Past illness Narrative* Problem Noted Date Diagnosed Date Resolved Date Diabetes mellitus type 2, co ntrolled, without complications 02/21/2014 01/15/2018 Occult GI bleeding 03/03/2013 3 Impaired fasting glucose 11/13/200505/2015 Allergic rhinitis, cause unspecified 06/06/2009 Overview: Allergic rhinitis documented as of this encounter (statuses as of 09/23/2023) [facility] History of Past illness Narrative* Problem Noted Date Diagnosed Date Resolved Date Diabetes mellitus type 2, co ntrolled, without complications 02/21/2014 01/15/2018 Occult GI bleeding 03/03/2013 3 Impaired fasting glucose 11/13/200505/2015 Allergic rhinitis, cause unspecified 06/06/2009 Overview: Allergic rhinitis documented as of this encounter (statuses as of 10/13/2023) [facility] History of Past illness Narrative* Problem Noted Date Diagnosed Date Resolved Date Diabetes mellitus type 2, co ntrolled, without complications 02/21/2014 01/15/2018 Occult GI bleeding 03/03/2013 3 Impaired fasting glucose 11/13/200505/2015 Allergic rhinitis, cause unspecified 06/06/2009 Overview: Allergic rhinitis documented as of this encounter (statuses as of 10/15/2023) [facility] History of Past illness Narrative* Problem Noted Date Diagnosed Date Resolved Date Diabetes mellitus type 2, co ntrolled, without complications 02/21/2014 01/15/2018 Occult GI bleeding 03/03/2013 3 Impaired fasting glucose 11/13/200505/2015 Allergic rhinitis, cause unspecified 06/06/2009 Overview: Allergic rhinitis documented as of this encounter (statuses as of 10/17/2023) [facility] History of Past illness Narrative* Problem Noted Date Diagnosed Date Resolved Date Diabetes mellitus type 2, co ntrolled, without complications 02/21/2014 01/15/2018 Occult GI bleeding 03/03/2013 3 Impaired fasting glucose 11/13/200505/2015 Allergic rhinitis, cause unspecified 06/06/2009 Overview: Allergic rhinitis documented as of this encounter (statuses as of 10/30/2023) [facility] History of Past illness Narrative* Problem Noted Date Diagnosed Date Resolved Date Diabetes mellitus type 2, co ntrolled, without complications 02/21/2014 01/15/2018 Occult GI bleeding 03/03/2013 3 Impaired fasting glucose 11/13/200505/2015 Allergic rhinitis, cause unspecified 06/06/2009 Overview: Allergic rhinitis documented as of this encounter (statuses as of 10/31/2023) [facility] History of Past illness Narrative* Problem Noted Date Diagnosed Date Resolved Date Diabetes mellitus type 2, co ntrolled, without complications 02/21/2014 01/15/2018 Occult GI bleeding 03/03/2013 3 Impaired fasting glucose 11/13/200505/2015 Allergic rhinitis, cause unspecified 06/06/2009 Overview: Allergic rhinitis documented as of this encounter (statuses as of 01/09/2024) [facility] History of Past illness Narrative* Problem Noted Date Diagnosed Date Resolved Date Diabetes mellitus type 2, co ntrolled, without complications 02/21/2014 01/15/2018 Occult GI bleeding 03/03/2013 3 Impaired fasting glucose 11/13/200505/2015 Allergic rhinitis, cause unspecified 06/06/2009 Overview: Allergic rhinitis documented as of this encounter (statuses as of 02/06/2024) [facility] History of Past illness Narrative* Problem Noted Date Diagnosed Date Resolved Date Diabetes mellitus type 2, co ntrolled, without complications 02/21/2014 01/15/2018 Occult GI bleeding 03/03/2013 3 Impaired fasting glucose 11/13/200505/2015 Allergic rhinitis, cause unspecified 06/06/2009 Overview: Allergic rhinitis documented as of this encounter (statuses as of 02/23/2024) [facility] History of Past illness Narrative* Problem Noted Date Diagnosed Date Resolved Date Diabetes mellitus type 2, co ntrolled, without complications 02/21/2014 01/15/2018 Occult GI bleeding 03/03/2013 3 Impaired fasting glucose 11/13/200505/2015 Allergic rhinitis, cause unspecified 06/06/2009 Overview: Allergic rhinitis documented as of this encounter (statuses as of 03/05/2024) [facility] History of Past illness Narrative* Problem Noted Date Diagnosed Date Resolved Date Diabetes mellitus type 2, co ntrolled, without complications 02/21/2014 01/15/2018 Occult GI bleeding 03/03/2013 3 Impaired fasting glucose 11/13/200505/2015 Allergic rhinitis, cause unspecified 06/06/2009 Overview: Allergic rhinitis documented as of this encounter (statuses as of 03/19/2024) [facility] note* 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)- Primary Essential hypertension Unspecified essential hypertension Acquired hypothyroidism Unspecified hypothyroidism Mixed hyperlipidemia Hypomagnesemia Disorders of magnesium metabolism Vitamin D deficiency Unspecified vitamin D deficiency nursing home current use of 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 Long-term (current) use of 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s Encounter for long-term current use of medication Class 3 severe obesity due to excess calories without serious comorbidity with body mass index (BMI) of 40.0 to 44.9 in adult (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 Long-term (current) use of 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s History of pulmonary embolus (PE) Personal history of pulmonary embolism documented in this encounter [facility] note* Diagnosis Onset Date Resolution Status Preop cardiovascular exam [place] 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 Essential hypertension chron ic nursing home current use of 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 chronic Mixed hyperlipidemia chronic 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 25 [facility] Work Phone: Evaluation note* Diagnosis Controlled type 2 diabetes mellitus with stage 3 chronic kidney disease, without long-term current use of insulin ([facility]) documented in this encounter [facility] note* Diagnosis Type 2 diabetes mellitus with stage 3a chronic kidney disease, without long-term current use of insulin (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 Long-term (current) use of 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s History of pulmonary embolus (PE) Personal history of pulmonary embolism documented in this encounter [facility] note* Diagnosis Preop exam for internal medicine Other specified pre-operative examination Other pulmonary embolism without acute cor pulmonale, unspecified chronicity (HCC) Chronic anticoagulation Long-term (current) use of 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s [facility] 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 Long-term (current) use of 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s History of pulmonary embolus (PE) Personal history of pulmonary embolism [facility] Diagnosis nursing home current use of 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 Long-term (current) use of 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s [facility] 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 Long-term (current) use of 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s [facility] Diagnosis UTI symptoms- Primary Other symptoms involving urinary system Urgency incontinence Urge incontinence [facility] 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 Long-term (current) use of 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s History of pulmonary embolus (PE) Personal history of pulmonary embolism [facility] Diagnosis Other microscopic hematuria- Primary UTI symptoms Other symptoms involving urinary system [facility] Diagnosis Personal history of DVT (deep vein thrombosis)- Primary Personal history of venous thrombosis and embolism History of pulmonary embolus (PE) Personal history of pulmonary embolism [facility] noteNo assessment information availableWChildren[facility] Work [facility]: Evaluation note* Diagnosis Acquired hypothyroidism Unspecified hypothyroidism [facility] Diagnosis Sinobronchitis- Primary Unspecified sinusitis (chronic) Acute bronchitis [facility] Diagnosis Sinobronchitis- Primary Unspecified sinusitis (chronic) Chronic anticoagulation Long-term (current) use of 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s [facility] Diagnosis nursing home current use of 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 Long-term (current) use of 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s History of pulmonary embolus (PE) Personal history of pulmonary embolism [facility] Diagnosis Laceration of right thumb without foreign body without damage to nail, subsequent encounter- Primary Open fracture of base of distal phalanx of right thumb Contusion of left knee, subsequent encounter Abrasion, left knee, subsequent encounter Muscle spasm Spasm of muscle Back strain, subsequent encounter [facility] 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 Long-term (current) use of 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s History of pulmonary embolus (PE) Personal history of pulmonary embolism [facility] 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 Long-term (current) use of 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s History of pulmonary embolus (PE) Personal history of pulmonary embolism [facility] Diagnosis Hyperkalemia- Primary Hyperpotassemia Hypercalcemia Elevated serum creatinine Other nonspecific findings on examination of blood Encounter for screening for osteoporosis Special screening for osteoporosis Asymptomatic postmenopausal status [facility] Diagnosis nursing home current use of 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- Primary Long-term (current) use of 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s History of pulmonary embolus (PE) Personal history of pulmonary embolism [facility] Diagnosis nursing home current use of 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- Primary Long-term (current) use of 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s History of pulmonary embolus (PE) Personal history of pulmonary embolism [facility] 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- Primary Long-term (current) use of 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s History of pulmonary embolus (PE) Personal history of pulmonary embolism [facility] Diagnosis Bowel habit changes- Primary Other symptoms involving digestive system Diarrhea, unspecified type History of colon polyps Personal history of colonic polyps Hypomagnesemia Disorders of magnesium metabolism Acquired hypothyroidism Unspecified hypothyroidism Vitamin D deficiency Unspecified vitamin D deficiency Type 2 diabetes mellitus with stage 3a chronic kidney disease, without long-term current use of insulin ([facility]) Encounter for therapeutic drug monitoring [facility] Diagnosis Bowel habit changes- Primary Other symptoms involving digestive system Diarrhea, unspecified type History of colon polyps Personal history of colonic polyps On continuous oral anticoagulation Long-term (current) use of 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s Abnormal weight loss Loss of weight [facility] Diagnosis Contusion of right hip, subsequent encounter- Primary Debility Debility, unspecified Pulmonary embolism without acute cor pulmonale, unspecified chronicity, unspecified pulmonary embolism type (HCC) [facility] 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- Primary Long-term (current) use of 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s History of pulmonary embolus (PE) Personal history of pulmonary embolism [facility] Diagnosis nursing home current use of 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- Primary Long-term (current) use of 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s History of pulmonary embolus (PE) Personal history of pulmonary embolism [facility] Diagnosis Hypomagnesemia- Primary Disorders of magnesium metabolism [facility] Diagnosis nursing home current use of 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- Primary Long-term (current) use of 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s History of pulmonary embolus (PE) Personal history of pulmonary embolism [facility] 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- Primary Long-term (current) use of 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s History of pulmonary embolus (PE) Personal history of pulmonary embolism [facility] Diagnosis Essential hypertension- Primary Unspecified essential hypertension Mixed hyperlipidemia Atherosclerosis of [place] coronary artery of [place] heart without angina pectoris Pulmonary embolism without acute cor pulmonale, unspecified chronicity, unspecified pulmonary embolism type (HCC) Class 3 severe obesity due to excess calories without serious comorbidity with body mass index (BMI) of 40.0 to 44.9 in adult ([facility]) Type 2 diabetes mellitus with stage 3a chronic kidney disease, without long-term current use of insulin (HCC) Hypercalcemia Vitamin D deficiency Unspecified vitamin D deficiency Acquired hypothyroidism Unspecified hypothyroidism Encounter for therapeutic drug monitoring [facility] Diagnosis nursing home current use of 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- Primary Long-term (current) use of 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s History of pulmonary embolus (PE) Personal history of pulmonary embolism [facility] Diagnosis Essential hypertension- Primary Unspecified essential hypertension PATRICIA (obstructive sleep apnea) Obstructive sleep apnea (adult) (pediatric) [facility] 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- Primary Long-term (current) use of 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s History of pulmonary embolus (PE) Personal history of pulmonary embolism [facility] Diagnosis Diarrhea, unspecified type- Primary 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 Long-term (current) use of 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s [facility] Diagnosis nursing home current use of 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- Primary Long-term (current) use of 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s History of pulmonary embolus (PE) Personal history of pulmonary embolism [facility] Diagnosis Diarrhea, unspecified type- Primary nursing home current use of 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 Long-term (current) use of 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s History of pulmonary embolus (PE) Personal history of pulmonary embolism Type 2 diabetes mellitus with stage 3a chronic kidney disease, without long-term current use of insulin (HCC) [facility] Diagnosis Type 2 diabetes mellitus with stage 3a chronic kidney disease, without long-term current use of insulin (HCC)- Primary Trigger ring finger of left hand Trigger finger (acquired) Morning joint stiffness of hand, left Class 3 severe obesity due to excess calories with body mass index (BMI) of 40.0 to 44.9 in adult, unspecified whether serious comorbidity present (HCC) Morning joint stiffness of right hand Acquired hypothyroidism Unspecified hypothyroidism 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 Long-term (current) use of 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s Hypomagnesemia Disorders of magnesium metabolism Vitamin D deficiency Unspecified vitamin D deficiency Hypercalcemia Mixed hyperlipidemia Encounter for therapeutic drug monitoring Encounter for immunization Need for other specified prophylactic vaccination against single bacterial disease [facility] Diagnosis PATRICIA (obstructive sleep apnea)- Primary Obstructive sleep apnea (adult) (pediatric) Claustrophobia Other isolated or specific phobias [facility] Diagnosis History of pulmonary embolus (PE)- Primary Personal history of pulmonary embolism Personal history of DVT (deep vein thrombosis) Personal history of venous thrombosis and embolism [facility] Diagnosis Hypertensive kidney disease with stage 3b chronic kidney disease (HCC)- Primary Type 2 diabetes mellitus with stage 3b chronic kidney disease, without long-term current use of insulin (HCC) Essential hypertension Unspecified essential hypertension Mixed hyperlipidemia Acquired hypothyroidism Unspecified hypothyroidism Vitamin D deficiency Unspecified vitamin D deficiency Trigger ring finger of left hand Trigger finger (acquired) Morning joint stiffness of hand, left Morning joint stiffness of right hand Body mass index (BMI) 40.0-44.9, adult (HCC) PATRICIA (obstructive sleep apnea) Obstructive sleep apnea (adult) (pediatric) Encounter for screening examination for other mental health and behavioral disorders Encounter for therapeutic drug monitoring Screening for depression Temporomandibular joint disorder Temporomandibular joint disorders, unspecified [facility] Diagnosis Onset Date Resolution Status Admit Date Nocturia acute July 12 9:49am Overactive bladder acute July 12, 2025 9:49am Urge incontinence acute July 12, 2025 9:49am Urinary tract infection acute A ugust 2024 9:49am [facility] Work Phone: Evaluation note* Diagnosis nursing home current use of 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- Primary Long-term (current) use of 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s History of pulmonary embolus (PE) Personal history of pulmonary embolism Personal history of DVT (deep vein thrombosis) Personal history of venous thrombosis and embolism documented in this encounter [facility] Discharge instructions Additional Instructions Use walker at home for support. Take medications as prescribed as needed. Follow-up with your doctor. 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 Advance Directive(s) 07/27/2019 5:50 AM Advance Directive(s) 07/26/2019 1:31 PM Advance Directive Response Recorded Date/ Time Advance Directives No October 9:29am Living Will No October 13, 2 020 12:04am Power of Fabricator [employer] No October 13, 2020 12:04am Advance Directive Response Recorded Date/ Time Advance Directives No October 9:29am Living Will No July 18 2 3:28pm Power of [employer]ator [employer] No July 18, 2 022 3:28pm Advance Directive Response Recorded Date/ Time Advance Directives No October 8:29am Living Will No July 18 2 2:28pm Power of Fabricator [employer] No July 18, 2 022 2:28pm Advance Directive Response Recorded Date/ Time Advance Directives No October 9:29am Living Will No March 05, 2023 1:58pm Power of Fabricator [employer] No March 05 3 1:58pm Advance Directive Response Recorded Date/ Time Advance Directives No October 9:29am Living Will No March 08, 2023 9:44am Power of Fabricator [employer] No March 08 3 9:44am Advance Directive Response Recorded Date/ Time Advance Directives No October 9:29am Living Will No September 25 5:44pm Power of Fabricator [employer] No September 25, 2023 5:44pm Advance Directive Response Recorded Date/ Time Advance Directives No October 8:29am Living Will No September 29 11:03am Power of Fabricator [employer] No September 29, 2023 11:03am Advance Directive Response Recorded Date/ Time Advance Directives No October 9:29am Chief Complaint and Reason for Visit Chief Complaint Admit Date MED F/U July 12, 2025 9: 49am 1HR UDS July 26, 2025 10 :35am Reason for Visit Admit Date Nocturia July 12, 2025 9: 49am Overactive bladder July 12, 2025 9: 49am Urge incontinence July 12, 2025 9: 49am Urinary tract infection July 12 9:49am Chief Complaint 6 m fu INT LABS Reason for Visit Preop cardiovascular exam Atherosclerotic heart disease of [place] coronary artery without angina pectoris Essential hypertension 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 Mixed hyperlipidemia Presence 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 Chief Complaint E ORDERS Chief Complaint FALL Chief Complaint FALL back pain Chief Complaint 1 Y FU FALL, RIGHT HIP & RIGHT LEG PAIN Reason for Visit Essential hypertensi on 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 Mixed hyperlipidemia Presence 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 Contusion of hip, right Fall Leg pain, right Chief Complaint 1 Y FU FALL, RIGHT HIP & RIGHT LEG PAIN FALL, RIGHT HIP & RIGHT LEG PAIN FALL, RIGHT HIP & RIGHT LEG PAIN RIGHT HIP CONTUSION/FALL RIGHT HIP CONTUSION/FALL RIGHT HIP CONTUSION/FALL RIGHT HIP CONTUSION/FALL RIGHT HIP CONTUSION/FALL RIGHT HIP CONTUSION/FALL RIGHT HIP CONTUSION/FALL UNSPECIFIED SLEEP APNEA Reason for Visit Essential hypertensi on 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 Mixed hyperlipidemia Presence 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 Debility Fall Leg pain, right Contusion, hip and thigh Debility Fall History of pulmonary embolism Leg pain, right Lumbar strain Overactive bladder Supratherapeutic INR Atherosclerotic heart disease of [place] coronary artery without angina pectoris DM2 (diabetes mellitus, type 2) Essential hypertension GERD (gastroesophageal reflux disease) Hypothyroidism 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 Mixed hyperlipidemia Obesity Presence 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 Chief Complaint 1 Y FU FALL, RIGHT HIP & RIGHT LEG PAIN FALL, RIGHT HIP & RIGHT LEG PAIN FALL, RIGHT HIP & RIGHT LEG PAIN RIGHT HIP CONTUSION/FALL RIGHT HIP CONTUSION/FALL RIGHT HIP CONTUSION/FALL RIGHT HIP CONTUSION/FALL RIGHT HIP CONTUSION/FALL RIGHT HIP CONTUSION/FALL RIGHT HIP CONTUSION/FALL UNSPECIFIED SLEEP APNEA R HIP CONTUSION RX HERE Reason for Visit Essential hypertensi on nursing home current use of anticoagulant Mixed hyperlipidemia Presence 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 Debility Fall Leg pain, right Debility History of pulmonary embolism Overactive bladder Atherosclerotic heart disease of [place] coronary artery without angina pectoris DM2 (diabetes mellitus, type 2) Essential hypertension GERD (gastroesophageal reflux disease) Hypothyroidism nursing home current use of anticoagulant Mixed hyperlipidemia Obesity Presence 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 Contusion, hip and thigh Fall Leg pain, right Lumbar strain Supratherapeutic INR Chief Complaint Admit Date 6 M FU February 09, 2025 1:5 9pm INT LAB ORDERS February 16, 2025 9:3 0am Reason for Visit Admit Date Coronary artery disease February 09, 2025 1:59pm 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 ure February 09, 2025 1:59pm DM2 (diabetes mellitus, type 2) February 092024 1:59pm Essential hypertension February 09, 2025 1:59pm nursing home current use of anticoagulant M 2024 1:59pm Mixed hyperlipidemia February 09, 2025 1: 59pm Obesity February 09, 2025 1:5 9pm Presence 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 Mar 2024 1:59pm Pulmonary embolism February 09, 2025 1:5 9pm Chief Complaint Admit Date MED F/U July 12, 2025 9: 49am Chief Complaint Admit Date MED F/U July 12, 2025 9: 49am 1HR UDS July 26, 2025 10 :35am INT LABS July 27, 2025 9: 35am 6 M FU August 04, 2025 2:05pm Reason for Visit Admit Date Nocturia July 12, 2025 9: 49am Overactive bladder July 12, 2025 9: 49am Urge incontinence July 12, 2025 9: 49am Urinary tract infection July 12 9:49am Overactive bladder July 26, 2025 10 :35am Urge incontinence July 26, 2025 10 :35am Coronary artery disease August 04, 2 025 2:05pm 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 ure August 04, 2025 2:05pm DM2 (diabetes mellitus, type 2) Septembe r 2024 2:05pm Essential hypertension August 04 2:05pm 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 S eptember 2024 2:05pm Mixed hyperlipidemia August 04, 2025 2:05pm Obesity August 04, 2025 2:05pm Presence 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 Sep tember 2024 2:05pm Pulmonary embolism August 04, 2025 2:05pm Chief Complaint Admit Date MED F/U July 12, 2025 9: 49am 1HR UDS July 26, 2025 10 :35am INT LABS July 27, 2025 9: 35am 6 M FU August 04, 2025 2:05pm UDS results August 08, 2025 1:14pm Reason for Referral Specialty Diagnoses / Procedures Referred By Christian pride Referred To Contact Diagnoses Preop exam for internal medicine Other pulmonary embolism without acute cor pulmonale, unspecified chronicity (HCC) Chronic anticoagulation Jose De Jesus Harrington MD [address] [place] [address] Referral ID Status Reason Start Date Expiration Date Visits Re quested Visits Authorized [id number] Closed 1 1 Specialty Diagnoses / Procedures Referred By Christian pride Referred To Contact Orthopedics Diagnoses Laceration of right thumb without foreign body without damage to nail, subsequent encounter Open fracture of base of distal phalanx of right thumb Procedures CONSULT TO ORTHOPAEDICS OFFICE/OUTPATIENT [facility] 60-74 MINUTES Herbert Jay, DIRECT SUPPORT STAFF.GARDENING SUPERVISOR [address] [place] [address] Referral ID Status Reason Start Date Expiration Date Visits Requested Visits Authorized [id number] Authorized PCP Requested Referral 03/13/2023 03/12/2024 1 1 Specialty Diagnoses / Procedures Referred By Christian pride Referred To Contact [facility] Diagnoses Laceration of right thumb without foreign body without damage to nail, subsequent encounter Open fracture of base of distal phalanx of right thumb Contusion of left knee, subsequent encounter Abrasion, left knee, subsequent encounter Muscle spasm Back strain, subsequent encounter Procedures CONSULT TO PHYSICAL THERAPY PHYSICAL THERAPY EVALUATION [facility] 45 MINS Herbert Jay, DIRECT SUPPORT STAFF.GARDENING SUPERVISOR [address] [place] [address] [facility] [place] [address] [place] [address] Referral ID Status Reason Start Date Expiration Date Visits Requested Visits Authorized [id number] Authorized PCP Requested Referral Auto-Generate d Referral 03/13/2023 03/12/2024 99 99 Specialty Diagnoses / Procedures Referred By Contac t Referred To Contact General Surgery Diagnoses Diarrhea, unspecified type Bowel habit changes History of colon polyps Procedures CONSULT TO GENERAL SURGERY OFFICE/OUTPATIENT [facility] 60-74 MINUTES Olimpia Gomez DIRECT SUPPORT STAFF.COMPENSATION DIRECTOR [address] [id number] Referral ID Status Reason Start Date Expiration Date Visits Requested Visits Authorized [id number] Authorized PCP Requested Referral 09/01/2023 08/31/2024 1 1 Specialty Diagnoses / Procedures Referred By Contac t Referred To Contact Diagnoses PATRICIA (obstructive sleep apnea) Procedures CONSULT TO SLEEP MEDICINE - ADULT OFFICE/OUTPATIENT [facility] 60 MINUTES Jose De Jesus Harrington MD [address] [place], [place] [id number] Referral ID Status Reason Start Date Expiration Date Visits Requested Visits Authorized [id number] Authorized PCP Requested Referral 07/27/2024 07/27/2025 1 1 Specialty Diagnoses / Procedures Referred By Contac t Referred To Contact Dentistry Diagnoses PATRICIA (obstructive sleep apnea) Procedures CONSULT TO DENTISTRY OFFICE/OUTPATIENT [facility] 60 MINUTES Roseann Elizabeth, DIRECT SUPPORT STAFF.COMPENSATION DIRECTOR [address] [place] [address] Referral ID Status Reason Start Date Expiration Date Visits Requested Visits Authorized [id number] New Request PCP Requested Referral 11/03/2024 11/03/2025 1 1 Additional Source Comments INFORMATION SOURCE (unrecogn ized section and content) DATE CREATED AUTHOR 05/21/2018 [facility] DATE CREATED AUTHOR AUTHOR'S ORGANIZ ATION 05/21/2018 [facility] DATE CREATED AUTHOR AUTHOR'S ORGANIZ ATION 08/17/2025 [facility] DATE CREATED AUTHOR AUTHOR'S ORGANIZ ATION 09/05/2025 [facility] Source Comments (unrecognize d section and content) In the event this informatio n is protected by the Federal Confidentiality of Alcohol and Drug Abuse Patient Records regulations: The Federal rules restrict any use of the information to criminally investigate or prosecute any alcohol or drug abuse patient.[facility] the event this information is protected by the Federal Confidentiality of Alcohol and Drug Abuse Patient Records regulations: The Federal rules restrict any use of the information to criminally investigate or prosecute any alcohol or drug abuse patient.[facility] the event this information is protected by the Federal Confidentiality of Alcohol and Drug Abuse Patient Records regulations: The Federal rules restrict any use of the information to criminally investigate or prosecute any alcohol or drug abuse patient.[facility] the event this information is protected by the Federal Confidentiality of Alcohol and Drug Abuse Patient Records regulations: The Federal rules restrict any use of the information to criminally investigate or prosecute any alcohol or drug abuse patient.[facility] the event this information is protected by the Federal Confidentiality of Alcohol and Drug Abuse Patient Records regulations: The Federal rules restrict any use of the information to criminally investigate or prosecute any alcohol or drug abuse patient.[facility] the event this information is protected by the Federal Confidentiality of Alcohol and Drug Abuse Patient Records regulations: The Federal rules restrict any use of the information to criminally investigate or prosecute any alcohol or drug abuse patient.[facility] the event this information is protected by the Federal Confidentiality of Alcohol and Drug Abuse Patient Records regulations: The Federal rules restrict any use of the information to criminally investigate or prosecute any alcohol or drug abuse patient.[facility] the event this information is protected by the Federal Confidentiality of Alcohol and Drug Abuse Patient Records regulations: The Federal rules restrict any use of the information to criminally investigate or prosecute any alcohol or drug abuse patient.[facility] the event this information is protected by the Federal Confidentiality of Alcohol and Drug Abuse Patient Records regulations: The Federal rules restrict any use of the information to criminally investigate or prosecute any alcohol or drug abuse patient.[facility] the event this information is protected by the Federal Confidentiality of Alcohol and Drug Abuse Patient Records regulations: The Federal rules restrict any use of the information to criminally investigate or prosecute any alcohol or drug abuse patient.[facility] the event this information is protected by the Federal Confidentiality of Alcohol and Drug Abuse Patient Records regulations: The Federal rules restrict any use of the information to criminally investigate or prosecute any alcohol or drug abuse patient.[facility] Hospital[facility] the event this information is protected by the Federal Confidentiality of Alcohol and Drug Abuse Patient Records regulations: The Federal rules restrict any use of the information to criminally investigate or prosecute any alcohol or drug abuse patient.[facility] Hospital[facility] the event this information is protected by the Federal Confidentiality of Alcohol and Drug Abuse Patient Records regulations: The Federal rules restrict any use of the information to criminally investigate or prosecute any alcohol or drug abuse patient.[facility] Hospital[facility] the event this information is protected by the Federal Confidentiality of Alcohol and Drug Abuse Patient Records regulations: The Federal rules restrict any use of the information to criminally investigate or prosecute any alcohol or drug abuse patient.[facility] Hospital[facility] the event this information is protected by the Federal Confidentiality of Alcohol and Drug Abuse Patient Records regulations: The Federal rules restrict any use of the information to criminally investigate or prosecute any alcohol or drug abuse patient.[facility] Hospital[facility] the event this information is protected by the Federal Confidentiality of Alcohol and Drug Abuse Patient Records regulations: The Federal rules restrict any use of the information to criminally investigate or prosecute any alcohol or drug abuse patient.[facility] Hospital[facility] the event this information is protected by the Federal Confidentiality of Alcohol and Drug Abuse Patient Records regulations: The Federal rules restrict any use of the information to criminally investigate or prosecute any alcohol or drug abuse patient.[facility] Hospital[facility] the event this information is protected by the Federal Confidentiality of Alcohol and Drug Abuse Patient Records regulations: The Federal rules restrict any use of the information to criminally investigate or prosecute any alcohol or drug abuse patient.[facility] HospitalIn the event this information is protected by the Federal Confidentiality of Alcohol and Drug Abuse Patient Records regulations: The Federal rules restrict any use of the information to criminally investigate or prosecute any alcohol or drug abuse patient.[facility] HospitalIn the event this information is protected by the Federal Confidentiality of Alcohol and Drug Abuse Patient Records regulations: The Federal rules restrict any use of the information to criminally investigate or prosecute any alcohol or drug abuse patient.[facility] Hospital[facility] the event this information is protected by the Federal Confidentiality of Alcohol and Drug Abuse Patient Records regulations: The Federal rules restrict any use of the information to criminally investigate or prosecute any alcohol or drug abuse patient.[facility] HospitalIn the event this information is protected by the Federal Confidentiality of Alcohol and Drug Abuse Patient Records regulations: The Federal rules restrict any use of the information to criminally investigate or prosecute any alcohol or drug abuse patient.[facility] HospitalIn the event this information is protected by the Federal Confidentiality of Alcohol and Drug Abuse Patient Records regulations: The Federal rules restrict any use of the information to criminally investigate or prosecute any alcohol or drug abuse patient.[facility] HospitalIn the event this information is protected by the Federal Confidentiality of Alcohol and Drug Abuse Patient Records regulations: The Federal rules restrict any use of the information to criminally investigate or prosecute any alcohol or drug abuse patient.[facility] HospitalIn the event this information is protected by the Federal Confidentiality of Alcohol and Drug Abuse Patient Records regulations: The Federal rules restrict any use of the information to criminally investigate or prosecute any alcohol or drug abuse patient.[facility] HospitalIn the event this information is protected by the Federal Confidentiality of Alcohol and Drug Abuse Patient Records regulations: The Federal rules restrict any use of the information to criminally investigate or prosecute any alcohol or drug abuse patient.[facility] HospitalIn the event this information is protected by the Federal Confidentiality of Alcohol and Drug Abuse Patient Records regulations: The Federal rules restrict any use of the information to criminally investigate or prosecute any alcohol or drug abuse patient.[facility] HospitalIn the event this information is protected by the Federal Confidentiality of Alcohol and Drug Abuse Patient Records regulations: The Federal rules restrict any use of the information to criminally investigate or prosecute any alcohol or drug abuse patient.[facility] HospitalIn the event this information is protected by the Federal Confidentiality of Alcohol and Drug Abuse Patient Records regulations: The Federal rules restrict any use of the information to criminally investigate or prosecute any alcohol or drug abuse patient.[facility] HospitalIn the event this information is protected by the Federal Confidentiality of Alcohol and Drug Abuse Patient Records regulations: The Federal rules restrict any use of the information to criminally investigate or prosecute any alcohol or drug abuse patient.[facility] HospitalIn the event this information is protected by the Federal Confidentiality of Alcohol and Drug Abuse Patient Records regulations: The Federal rules restrict any use of the information to criminally investigate or prosecute any alcohol or drug abuse patient.[facility] HospitalIn the event this information is protected by the Federal Confidentiality of Alcohol and Drug Abuse Patient Records regulations: The Federal rules restrict any use of the information to criminally investigate or prosecute any alcohol or drug abuse patient.[facility] HospitalIn the event this information is protected by the Federal Confidentiality of Alcohol and Drug Abuse Patient Records regulations: The Federal rules restrict any use of the information to criminally investigate or prosecute any alcohol or drug abuse patient.[facility] HospitalIn the event this information is protected by the Federal Confidentiality of Alcohol and Drug Abuse Patient Records regulations: The Federal rules restrict any use of the information to criminally investigate or prosecute any alcohol or drug abuse patient.[facility] HospitalIn the event this information is protected by the Federal Confidentiality of Alcohol and Drug Abuse Patient Records regulations: The Federal rules restrict any use of the information to criminally investigate or prosecute any alcohol or drug abuse patient.[facility] HospitalIn the event this information is protected by the Federal Confidentiality of Alcohol and Drug Abuse Patient Records regulations: The Federal rules restrict any use of the information to criminally investigate or prosecute any alcohol or drug abuse patient.[facility] HospitalIn the event this information is protected by the Federal Confidentiality of Alcohol and Drug Abuse Patient Records regulations: The Federal rules restrict any use of the information to criminally investigate or prosecute any alcohol or drug abuse patient.[facility] HospitalIn the event this information is protected by the Federal Confidentiality of Alcohol and Drug Abuse Patient Records regulations: The Federal rules restrict any use of the information to criminally investigate or prosecute any alcohol or drug abuse patient.[facility] HospitalIn the event this information is protected by the Federal Confidentiality of Alcohol and Drug Abuse Patient Records regulations: The Federal rules restrict any use of the information to criminally investigate or prosecute any alcohol or drug abuse patient.[facility] HospitalIn the event this information is protected by the Federal Confidentiality of Alcohol and Drug Abuse Patient Records regulations: The Federal rules restrict any use of the information to criminally investigate or prosecute any alcohol or drug abuse patient.[facility] HospitalIn the event this information is protected by the Federal Confidentiality of Alcohol and Drug Abuse Patient Records regulations: The Federal rules restrict any use of the information to criminally investigate or prosecute any alcohol or drug abuse patient.[facility] HospitalIn the event this information is protected by the Federal Confidentiality of Alcohol and Drug Abuse Patient Records regulations: The Federal rules restrict any use of the information to criminally investigate or prosecute any alcohol or drug abuse patient.[facility] HospitalIn the event this information is protected by the Federal Confidentiality of Alcohol and Drug Abuse Patient Records regulations: The Federal rules restrict any use of the information to criminally investigate or prosecute any alcohol or drug abuse patient.[facility] HospitalIn the event this information is protected by the Federal Confidentiality of Alcohol and Drug Abuse Patient Records regulations: The Federal rules restrict any use of the information to criminally investigate or prosecute any alcohol or drug abuse patient.[facility] HospitalIn the event this information is protected by the Federal Confidentiality of Alcohol and Drug Abuse Patient Records regulations: The Federal rules restrict any use of the information to criminally investigate or prosecute any alcohol or drug abuse patient.[facility] HospitalIn the event this information is protected by the Federal Confidentiality of Alcohol and Drug Abuse Patient Records regulations: The Federal rules restrict any use of the information to criminally investigate or prosecute any alcohol or drug abuse patient.[facility] HospitalIn the event this information is protected by the Federal Confidentiality of Alcohol and Drug Abuse Patient Records regulations: The Federal rules restrict any use of the information to criminally investigate or prosecute any alcohol or drug abuse patient.[facility] HospitalIn the event this information is protected by the Federal Confidentiality of Alcohol and Drug Abuse Patient Records regulations: The Federal rules restrict any use of the information to criminally investigate or prosecute any alcohol or drug abuse patient.[facility] HospitalIn the event this information is protected by the Federal Confidentiality of Alcohol and Drug Abuse Patient Records regulations: The Federal rules restrict any use of the information to criminally investigate or prosecute any alcohol or drug abuse patient.[facility] HospitalIn the event this information is protected by the Federal Confidentiality of Alcohol and Drug Abuse Patient Records regulations: The Federal rules restrict any use of the information to criminally investigate or prosecute any alcohol or drug abuse patient.[facility] HospitalIn the event this information is protected by the Federal Confidentiality of Alcohol and Drug Abuse Patient Records regulations: The Federal rules restrict any use of the information to criminally investigate or prosecute any alcohol or drug abuse patient.[facility] HospitalIn the event this information is protected by the Federal Confidentiality of Alcohol and Drug Abuse Patient Records regulations: The Federal rules restrict any use of the information to criminally investigate or prosecute any alcohol or drug abuse patient.[facility] HospitalIn the event this information is protected by the Federal Confidentiality of Alcohol and Drug Abuse Patient Records regulations: The Federal rules restrict any use of the information to criminally investigate or prosecute any alcohol or drug abuse patient.[facility] HospitalIn the event this information is protected by the Federal Confidentiality of Alcohol and Drug Abuse Patient Records regulations: The Federal rules restrict any use of the information to criminally investigate or prosecute any alcohol or drug abuse patient.[facility] HospitalIn the event this information is protected by the Federal Confidentiality of Alcohol and Drug Abuse Patient Records regulations: The Federal rules restrict any use of the information to criminally investigate or prosecute any alcohol or drug abuse patient.[facility] HospitalIn the event this information is protected by the Federal Confidentiality of Alcohol and Drug Abuse Patient Records regulations: The Federal rules restrict any use of the information to criminally investigate or prosecute any alcohol or drug abuse patient.[facility] HospitalIn the event this information is protected by the Federal Confidentiality of Alcohol and Drug Abuse Patient Records regulations: The Federal rules restrict any use of the information to criminally investigate or prosecute any alcohol or drug abuse patient.[facility] HospitalIn the event this information is protected by the Federal Confidentiality of Alcohol and Drug Abuse Patient Records regulations: The Federal rules restrict any use of the information to criminally investigate or prosecute any alcohol or drug abuse patient.[facility] HospitalIn the event this information is protected by the Federal Confidentiality of Alcohol and Drug Abuse Patient Records regulations: The Federal rules restrict any use of the information to criminally investigate or prosecute any alcohol or drug abuse patient.[facility] HospitalIn the event this information is protected by the Federal Confidentiality of Alcohol and Drug Abuse Patient Records regulations: The Federal rules restrict any use of the information to criminally investigate or prosecute any alcohol or drug abuse patient.[facility] HospitalIn the event this information is protected by the Federal Confidentiality of Alcohol and Drug Abuse Patient Records regulations: The Federal rules restrict any use of the information to criminally investigate or prosecute any alcohol or drug abuse patient.[facility] HospitalIn the event this information is protected by the Federal Confidentiality of Alcohol and Drug Abuse Patient Records regulations: The Federal rules restrict any use of the information to criminally investigate or prosecute any alcohol or drug abuse patient.[facility] HospitalIn the event this information is protected by the Federal Confidentiality of Alcohol and Drug Abuse Patient Records regulations: The Federal rules restrict any use of the information to criminally investigate or prosecute any alcohol or drug abuse patient.[facility] HospitalIn the event this information is protected by the Federal Confidentiality of Alcohol and Drug Abuse Patient Records regulations: The Federal rules restrict any use of the information to criminally investigate or prosecute any alcohol or drug abuse patient.[facility] HospitalIn the event this information is protected by the Federal Confidentiality of Alcohol and Drug Abuse Patient Records regulations: The Federal rules restrict any use of the information to criminally investigate or prosecute any alcohol or drug abuse patient.[facility] HospitalIn the event this information is protected by the Federal Confidentiality of Alcohol and Drug Abuse Patient Records regulations: The Federal rules restrict any use of the information to criminally investigate or prosecute any alcohol or drug abuse patient.[facility] HospitalIn the event this information is protected by the Federal Confidentiality of Alcohol and Drug Abuse Patient Records regulations: The Federal rules restrict any use of the information to criminally investigate or prosecute any alcohol or drug abuse patient.[facility] HospitalIn the event this information is protected by the Federal Confidentiality of Alcohol and Drug Abuse Patient Records regulations: The Federal rules restrict any use of the information to criminally investigate or prosecute any alcohol or drug abuse patient.[facility] HospitalIn the event this information is protected by the Federal Confidentiality of Alcohol and Drug Abuse Patient Records regulations: The Federal rules restrict any use of the information to criminally investigate or prosecute any alcohol or drug abuse patient.[facility] HospitalIn the event this information is protected by the Federal Confidentiality of Alcohol and Drug Abuse Patient Records regulations: The Federal rules restrict any use of the information to criminally investigate or prosecute any alcohol or drug abuse patient.[facility] HospitalIn the event this information is protected by the Federal Confidentiality of Alcohol and Drug Abuse Patient Records regulations: The Federal rules restrict any use of the information to criminally investigate or prosecute any alcohol or drug abuse patient.[facility] HospitalIn the event this information is protected by the Federal Confidentiality of Alcohol and Drug Abuse Patient Records regulations: The Federal rules restrict any use of the information to criminally investigate or prosecute any alcohol or drug abuse patient.[facility] HospitalIn the event this information is protected by the Federal Confidentiality of Alcohol and Drug Abuse Patient Records regulations: The Federal rules restrict any use of the information to criminally investigate or prosecute any alcohol or drug abuse patient.[facility] HospitalIn the event this information is protected by the Federal Confidentiality of Alcohol and Drug Abuse Patient Records regulations: The Federal rules restrict any use of the information to criminally investigate or prosecute any alcohol or drug abuse patient.[facility] HospitalIn the event this information is protected by the Federal Confidentiality of Alcohol and Drug Abuse Patient Records regulations: The Federal rules restrict any use of the information to criminally investigate or prosecute any alcohol or drug abuse patient.[facility] HospitalIn the event this information is protected by the Federal Confidentiality of Alcohol and Drug Abuse Patient Records regulations: The Federal rules restrict any use of the information to criminally investigate or prosecute any alcohol or drug abuse patient.[facility] HospitalIn the event this information is protected by the Federal Confidentiality of Alcohol and Drug Abuse Patient Records regulations: The Federal rules restrict any use of the information to criminally investigate or prosecute any alcohol or drug abuse patient.[facility] HospitalIn the event this information is protected by the Federal Confidentiality of Alcohol and Drug Abuse Patient Records regulations: The Federal rules restrict any use of the information to criminally investigate or prosecute any alcohol or drug abuse patient.[facility] HospitalIn the event this information is protected by the Federal Confidentiality of Alcohol and Drug Abuse Patient Records regulations: The Federal rules restrict any use of the information to criminally investigate or prosecute any alcohol or drug abuse patient.[facility] HospitalIn the event this information is protected by the Federal Confidentiality of Alcohol and Drug Abuse Patient Records regulations: The Federal rules restrict any use of the information to criminally investigate or prosecute any alcohol or drug abuse patient.[facility] HospitalIn the event this information is protected by the Federal Confidentiality of Alcohol and Drug Abuse Patient Records regulations: The Federal rules restrict any use of the information to criminally investigate or prosecute any alcohol or drug abuse patient.[facility] HospitalIn the event this information is protected by the Federal Confidentiality of Alcohol and Drug Abuse Patient Records regulations: The Federal rules restrict any use of the information to criminally investigate or prosecute any alcohol or drug abuse patient.[facility] HospitalIn the event this information is protected by the Federal Confidentiality of Alcohol and Drug Abuse Patient Records regulations: The Federal rules restrict any use of the information to criminally investigate or prosecute any alcohol or drug abuse patient.[facility] HospitalIn the event this information is protected by the Federal Confidentiality of Alcohol and Drug Abuse Patient Records regulations: The Federal rules restrict any use of the information to criminally investigate or prosecute any alcohol or drug abuse patient.[facility] HospitalIn the event this information is protected by the Federal Confidentiality of Alcohol and Drug Abuse Patient Records regulations: The Federal rules restrict any use of the information to criminally investigate or prosecute any alcohol or drug abuse patient.[facility] HospitalIn the event this information is protected by the Federal Confidentiality of Alcohol and Drug Abuse Patient Records regulations: The Federal rules restrict any use of the information to criminally investigate or prosecute any alcohol or drug abuse patient.[facility] HospitalIn the event this information is protected by the Federal Confidentiality of Alcohol and Drug Abuse Patient Records regulations: The Federal rules restrict any use of the information to criminally investigate or prosecute any alcohol or drug abuse patient.[facility] HospitalIn the event this information is protected by the Federal Confidentiality of Alcohol and Drug Abuse Patient Records regulations: The Federal rules restrict any use of the information to criminally investigate or prosecute any alcohol or drug abuse patient.[facility] HospitalIn the event this information is protected by the Federal Confidentiality of Alcohol and Drug Abuse Patient Records regulations: The Federal rules restrict any use of the information to criminally investigate or prosecute any alcohol or drug abuse patient.[facility] HospitalIn the event this information is protected by the Federal Confidentiality of Alcohol and Drug Abuse Patient Records regulations: The Federal rules restrict any use of the information to criminally investigate or prosecute any alcohol or drug abuse patient.[facility] HospitalIn the event this information is protected by the Federal Confidentiality of Alcohol and Drug Abuse Patient Records regulations: The Federal rules restrict any use of the information to criminally investigate or prosecute any alcohol or drug abuse patient.[facility] HospitalIn the event this information is protected by the Federal Confidentiality of Alcohol and Drug Abuse Patient Records regulations: The Federal rules restrict any use of the information to criminally investigate or prosecute any alcohol or drug abuse patient.[facility] HospitalIn the event this information is protected by the Federal Confidentiality of Alcohol and Drug Abuse Patient Records regulations: The Federal rules restrict any use of the information to criminally investigate or prosecute any alcohol or drug abuse patient.[facility] Reason for Visit (unrecogniz ed section and content) Reason Comments Anticoagulation Reason Comments Follow Up Reason Comments Covid19 Concern Reason Comments F/U 6 Month Reason Comments Lovenox bridging needed Reason Comments Insurance Authorization Reason Comments Patient Update Patient Question Reason Onset Date Comments Refill Request 08/06/2022 Reason Comments Follow Up UTI Reason Onset Date Comments Anticoagulation 08/14/2022 Reason Comments Orders protime Reason Onset Date Comments Refill Request 01/20/2023 Reason Comments Covid Follow Up Reason Onset Date Comments Symptoms 03/08/2023 Reason Comments Back Pain Reason Comments Hospital F/U Reason Comments Results Reason Comments Diarrhea for about 2 months s oft and not formedfatigue Reason Comments Consult Colonoscopy consult. Specialty Diagnoses / Procedures Referred By Contac t Referred To Contact General Surgery Diagnoses Diarrhea, unspecified type Bowel habit changes History of colon polyps Procedures CONSULT TO GENERAL SURGERY OFFICE/OUTPATIENT [facility] 60-74 MINUTES Olimpia Gomez APRN.CNP [address] [place] [address] Referral ID Status Reason Start Date Expiration Date V isits Requested Visits Authorized [id number] Closed PCP Requested Referral 09/01/2023 08/31/2024 1 1 Reason Comments Hospital F/U Reason Comments F/U 6 months Reason Comments Requesting LUZ MARIA notes Reason Onset Date Comments Refill Request 02/23/2024 Reason Comments Orders Reason Onset Date Comments Refill Request 04/02/2024 Reason Comments Patient Question Reason Comments Patient Update Reason Comments Established Patient Elevated BP recently Reason Comments Diarrhea Reason Comments Results/INR questions Reason Comments New Patient PATRICIA, no pap therapy at this time Specialty Diagnoses / Procedures Referred By Contac t Referred To Contact Diagnoses PATRICIA (obstructive sleep apnea) Procedures CONSULT TO SLEEP MEDICINE - ADULT OFFICE/OUTPATIENT [facility] 60 MINUTES Jose De Jesus Harrington MD [address] [place] [address] Referral ID Status Reason Start Date Expiration Date V isits Requested Visits Authorized [id number] Closed PCP Requested Referral 07/27/2024 07/27/2025 1 1 Reason Comments Appointment Reason Comments Orders poc protime Reason Onset Date Comments Population Health Navigation Outreach 04/11/2025 [facility] Care Teams (unrecognized sec tion and content) Windows Infrastructure Engineer Relationship Specialty Start Date End Date Jose De Jesus Harrington MD [facility] [place] [address] PCP - General Internal Medicine 12/06/14 Windows Infrastructure Engineer Relationship Specialty Start Date End Date Jose De Jesus Harrington MD [address] [place] [id number] PCP - General Internal Medicine 12/06/14 Windows Infrastructure Engineer Relationship Specialty Start Date End Date Jose De Jesus Hrarington MD [address] [place] [id number] PCP - General Internal Medicine 12/06/14 Windows Infrastructure Engineer Relationship Specialty Start Date End Date Jose De Jesus Harrington MD [address] [place] [address] [place] [address] PCP - General Internal Medicine 12/06/14 Windows Infrastructure Engineer Relationship Specialty Start Date End Date Jose De Jesus Harrington MD [address] [place] [address] [place] [address] PCP - General Internal Medicine 12/06/14 Windows Infrastructure Engineer Relationship Specialty Start Date End Date Jose De Jesus Harrington MD [address] [place] [address] [place] [address] PCP - General Internal Medicine 12/06/14 Windows Infrastructure Engineer Relationship Specialty Start Date End Date Jose De Jesus Harrington MD [address] [place] [address] [place] [address] PCP - General Internal Medicine 12/06/14 Windows Infrastructure Engineer Relationship Specialty Start Date End Date Jose De Jesus Harrington MD [address] [facility] [place] [address] PCP - General Internal Medicine 12/06/14 Windows Infrastructure Engineer Relationship Specialty Start Date End Date Jose De Jesus Harrington MD [address] [facility] [place] [address] PCP - General Internal Medicine 12/06/14 Windows Infrastructure Engineer Relationship Specialty Start Date End Date Jose De Jesus Harrington MD [address] [facility] [place] [address] PCP - General Internal Medicine 12/06/14 Windows Infrastructure Engineer Relationship Specialty Start Date End Date Jose De Jesus Harrington MD [address] [facility] [place] [address] PCP - General Internal Medicine 12/06/14 Windows Infrastructure Engineer Relationship Specialty Start Date End Date Jose De Jesus Harrington MD [address] [facility] [place] [address] PCP - General Internal Medicine 12/06/14 Team Status: Active Member Role Status Dates Dr. Jose De Jesus Harrington MD Family Provider Active Dr. Jose De Jesus Harrington MD Primary Care Provider Active Team Status: Inactive Member Role Status Dates Dr. Jose De Jesus Harrington MD Primary Care Provider Active Dr. Maxwell Simental DO Emergency Provider Active Team Status: Inactive Member Role Status Dates Dr. Jose De Jesus Harrington MD Primary Care Provider Active Dr. Adrien Bonilla DO Emergency Provider Active Windows Infrastructure Engineer Relationship Specialty Start Date End Date Jose De Jesus Harrington MD [address] [facility] [place] [address] PCP - General Internal Medicine 12/06/14 Windows Infrastructure Engineer Relationship Specialty Start Date End Date Jose De Jesus Harrington MD [address] [facility] [place] [address] PCP - General Internal Medicine 12/06/14 Windows Infrastructure Engineer Relationship Specialty Start Date End Date Jose De Jesus Harrington MD [address] [facility] [place] [address] PCP - General Internal Medicine 12/06/14 Windows Infrastructure Engineer Relationship Specialty Start Date End Date Jose De Jesus Harrington MD [address] [facility] [place] [address] PCP - General Internal Medicine 12/06/14 Windows Infrastructure Engineer Relationship Specialty Start Date End Date Jose De Jesus Harrington MD [address] [facility] [place] [address] PCP - General Internal Medicine 12/06/14 Windows Infrastructure Engineer Relationship Specialty Start Date End Date Jose De Jesus Harrington MD [address] [facility] [place] [address] PCP - General Internal Medicine 12/06/14 Windows Infrastructure Engineer Relationship Specialty Start Date End Date Jose De Jesus Harrington MD [address] [facility] [place] [address] PCP - General Internal Medicine 12/06/14 Windows Infrastructure Engineer Relationship Specialty Start Date End Date Jose De Jesus Harrington MD [address] [facility] [place] [address] PCP - General Internal Medicine 12/06/14 Windows Infrastructure Engineer Relationship Specialty Start Date End Date Jose De Jesus Harrington MD [address] [facility] [place] [address] PCP - General Internal Medicine 12/06/14 Windows Infrastructure Engineer Relationship Specialty Start Date End Date Jose De Jesus Harrington MD [address] [facility] [place] [address] PCP - General Internal Medicine 12/06/14 Windows Infrastructure Engineer Relationship Specialty Start Date End Date Jose De Jesus Harrington MD [address] [place] [address] PCP - General Internal Medicine 12/06/14 Windows Infrastructure Engineer Relationship Specialty Start Date End Date Jose De Jesus Harrington MD [address] [place], [place] [address] PCP - General Internal Medicine 12/06/14 Windows Infrastructure Engineer Relationship Specialty Start Date End Date Jose De Jesus Harrington MD [address] [place], [place] [address] PCP - General Internal Medicine 12/06/14 Team Status: Inactive Member Role Status Dates Dr. Jose De Jesus Harrington MD Primary Care Provider, Referr ing Provider Active Victoriano Aparicio BILINGUAL INSTRUCTOR, BILINGUAL INSTRUCTOR-C Attending Provider Active Team Status: Active Member Role Status Dates Dr. Jose De Jesus Harrington MD Primary Care Provider Active Alfredito Bowie MD Emergency Provider Active Dr. Yonatan Portillo MD Admit Provider, Attending Pro vider Active Team Status: Active Member Role Status Dates Dr. Jose De Jesus Harrington MD Primary Care Provider Active Alfredito Bowie MD Emergency Provider Active Dr. Yonatan Portillo MD Admit Provider, Attending Provider, Other Provider Active Team Status: Active Member Role Status Dates Dr. Jose De Jesus Harrington MD Primary Care Provider Active Alfredito Bowie MD Emergency Provider Active Dr. Yonatan Portillo MD Admit Provider, Other Provide r Active Dr. Radha Arriaga MD Attending Provider, Other Provid er Active Team Status: Active Member Role Status Dates Dr. Jose De Jesus Harrington MD Primary Care Provider Active Dr. Jennifer Black DO Admit Pr ovider, Attending Provider, Other Provider Active Team Status: Active Member Role Status Dates Dr. Jose De Jesus Harrington MD Primary Care Provider Active Dr. Jennifer Black DO Admit Pr ovider, Attending Provider, Referring Provider, Other Provider Active Team Status: Inactive Member Role Status Dates Dr. Jose De Jesus Harrington MD Primary Care Provider Active Dr. Jennifer Black DO Admit Pr ovider, Attending Provider, Referring Provider Active Team Status: Active Member Role Status Dates Dr. Jose De Jesus Harrington MD Primary Care Provider Active Dr. Jennifer Black DO Attending Provider Act kaylyn Team Status: Inactive Member Role Status Dates Dr. Jose De Jesus Harrington MD Primary Care Provider Active Alfredito Bowie MD Emergency Provider Active Dr. Yonatan Portillo MD Admit Provider, Other Provide r Active Dr. Radha Arriaga MD Attending Provider Active Team Status: Inactive Member Role Status Dates Dr. Jose De Jesus Harrington MD Primary Care Provider Active Dr. Jennifer Black DO Attending Provider Act kaylyn Windows Infrastructure Engineer Relationship Specialty Start Date End Date Jose De Jesus Harrington MD [address] [place] [address] PCP - General Internal Medicine 12/06/14 Windows Infrastructure Engineer Relationship Specialty Start Date End Date Jose De Jesus Harrington MD [address] [place] [address] PCP - General Internal Medicine 12/06/14 Windows Infrastructure Engineer Relationship Specialty Start Date End Date Jose De Jesus Harrington MD [address] [place] [address] PCP - General Internal Medicine 12/06/14 Team Status: Inactive Member Role Status Dates Dr. Jose De Jesus Harrington MD Primary Care Provider Active Dr. Jennifer Black DO Attending Provider, Re ferring Provider Active Windows Infrastructure Engineer Relationship Specialty Start Date End Date Jose De Jesus Harrington MD [address] [place] [address] PCP - General Internal Medicine 12/06/14 Windows Infrastructure Engineer Relationship Specialty Start Date End Date Jose De Jesus Harrington MD [address] [place] [address] PCP - General Internal Medicine 12/06/14 Windows Infrastructure Engineer Relationship Specialty Start Date End Date Jose De Jesus Harrington MD [address] [facility] [place] [address] PCP - General Internal Medicine 12/06/14 Windows Infrastructure Engineer Relationship Specialty Start Date End Date Jose De Jesus Harrington MD [address] [facility] [place] [address] PCP - General Internal Medicine 12/06/14 Windows Infrastructure Engineer Relationship Specialty Start Date End Date Jose De Jesus Harrington MD [address] [facility] [place] [address] PCP - General Internal Medicine 12/06/14 Windows Infrastructure Engineer Relationship Specialty Start Date End Date Jose De Jesus Harrington MD [address] [facility] [place] [address] PCP - General Internal Medicine 12/06/14 Windows Infrastructure Engineer Relationship Specialty Start Date End Date Jose De Jesus Harrington MD [address] [facility] [place] [address] PCP - General Internal Medicine 12/06/14 Windows Infrastructure Engineer Relationship Specialty Start Date End Date Jose De Jesus Harrington MD [address] [facility] [place] [address] PCP - General Internal Medicine 12/06/14 Windows Infrastructure Engineer Relationship Specialty Start Date End Date Jose De Jesus Harrington MD [address] [facility] [place] [address] PCP - General Internal Medicine 12/06/14 Windows Infrastructure Engineer Relationship Specialty Start Date End Date Jose De Jesus Harrington MD [address] [facility] [place] [address] PCP - General Internal Medicine 12/06/14 Herbert Jay, DIRECT SUPPORT STAFF.GARDENING SUPERVISOR [address] [facility] [place] [address] Revolving Field Assembler Internal Medicine 11/08/24 Olimpia Gomez APRN.COMPENSATION DIRECTOR [address] [place] [address] Revolving Field Assembler Internal Medicine 11/08/24 Windows Infrastructure Engineer Relationship Specialty Start Date End Date Jose De Jesus Harrington MD [address] [place] [address] PCP - General Internal Medicine 12/06/14 Herbert Jay, DIRECT SUPPORT STAFF.GARDENING SUPERVISOR [address] [facility] [place] [address] Revolving Field Assembler Internal Medicine 11/08/24 Olimpia Gomez APRN.COMPENSATION DIRECTOR [address] [place] [address] Revolving Field Assembler Internal Medicine 11/08/24 Windows Infrastructure Engineer Relationship Specialty Start Date End Date Jose De Jesus Harrington MD [address] [place] [address] PCP - General Internal Medicine 12/06/14 Herbert Jay DIRECT SUPPORT STAFF.GARDENING SUPERVISOR [address] [facility] [place] [address] Revolving Field Assembler Internal Medicine 11/08/24 Olimpia Gomez APRN.COMPENSATION DIRECTOR [address] [place] [address] Revolving Field Assembler Internal Medicine 11/08/24 Windows Infrastructure Engineer Relationship Specialty Start Date End Date Jose De Jesus Harrington MD [address] [place] [address] PCP - General Internal Medicine 12/06/14 Herbert Jay, DIRECT SUPPORT STAFF.GARDENING SUPERVISOR [address] [place] [address] Revolving Field Assembler Internal Medicine 11/08/24 Olimpia Gomez DIRECT SUPPORT STAFF.COMPENSATION DIRECTOR [address] [place] [address] [facility] Internal Medicine 11/08/24 Windows Infrastructure Engineer Relationship Specialty Start Date End Date Jose De Jesus Harrington MD [address] [place] [address] PCP - General Internal Medicine 12/06/14 Herbret Jay, DIRECT SUPPORT STAFF.GARDENING SUPERVISOR [address] [place] [address] [facility] Internal Medicine 11/08/24 Olimpia Gomez DIRECT SUPPORT STAFF.COMPENSATION DIRECTOR [address] [place] [address] [facility] Internal Medicine 11/08/24 Windows Infrastructure Engineer Relationship Specialty Start Date End Date Jose De Jesus Harrington MD [address] [place] [address] PCP - General Internal Medicine 12/06/14 Herbert Jay, DIRECT SUPPORT STAFF.GARDENING SUPERVISOR [address] [place] [address] [facility] Internal Medicine 11/08/24 Olimpia Gomez DIRECT SUPPORT STAFF.COMPENSATION DIRECTOR [address] [place], [place] [address] [facility] Internal Medicine 11/08/24 Windows Infrastructure Engineer Relationship Specialty Start Date End Date Jose De Jesus Harrington MD [address] [place], [place] [address] PCP - General Internal Medicine 12/06/14 Herbert Jay DIRECT SUPPORT STAFF.GARDENING SUPERVISOR [address] [place], [place] [address] [facility] Internal Medicine 11/08/24 Olimpia Gomez DIRECT SUPPORT STAFF.COMPENSATION DIRECTOR [address] [place], [place] [address] [facility] Internal [facility] 11/08/24 Team Status: Inactive Member Role Status Dates Dr. Jose De Jesus Harrington MD Primary Care Provider Active Start: February 09, 2025 End: February 09, 2025 Dr. Jose De Jesus Harrington MD Referring Provider Active Start: February 09, 2025 End: February 09, 2025 Dr. Augustin Moreira MD Attending Provider Active Start: February 09, 2025 End: February 09, 2025 Team Status: Inactive Member Role Status Dates Dr. Jose De Jesus Harrington MD Primary Care Provider Active Start: February 16, 2025 End: February 16, 2025 Dr. Augustin Moreira MD Attending Provider Active Start: February 16, 2025 End: February 16, 2025 Dr. Augustin Moreira MD Referring Provider Active Start: February 16, 2025 End: February 16, 2025 Windows Infrastructure Engineer Relationship Specialty Start Date End Date Jose De Jesus Harrington MD [address] [place], [place] [address] PCP - General Internal Medicine 12/06/14 Herbert Jay, DIRECT SUPPORT STAFF.GARDENING SUPERVISOR [address] [facility] [place] [address] Revolving Field Assembler Internal Medicine 11/08/24 Olimpia Gomez DIRECT SUPPORT STAFF.COMPENSATION DIRECTOR [address] [facility] [place] [address] Revolving Field Assembler Internal Medicine 02/22/25 Windows Infrastructure Engineer Relationship Specialty Start Date End Date Jose De Jesus Harrington MD [address] [facility] [place] [address] PCP - General Internal Medicine 12/06/14 Herbert Jay, DIRECT SUPPORT STAFF.GARDENING SUPERVISOR [address] [facility] [place] [address] Revolving Field Assembler Internal Medicine 11/08/24 Olimpia Gomez DIRECT SUPPORT STAFF.COMPENSATION DIRECTOR [address] [facility] [place] [address] Revolving Field Assembler Internal Medicine 02/22/25 Windows Infrastructure Engineer Relationship Specialty Start Date End Date Jose De Jesus Harrington MD [address] [facility] [place] [address] PCP - General Internal Medicine 12/06/14 Herbert Jay, DIRECT SUPPORT STAFF.GARDENING SUPERVISOR [address] [facility] [place] [address] Revolving Field Assembler Internal Medicine 11/08/24 Olimpia Gomez DIRECT SUPPORT STAFF.COMPENSATION DIRECTOR [address] [facility] [place] [address] Revolving Field Assembler Internal Medicine 02/22/25 Windows Infrastructure Engineer Relationship Specialty Start Date End Date Jose De Jesus Harrington MD [address] [facility] [place] [address] PCP - General Internal Medicine 12/06/14 Olimpia Gomez APRN.COMPENSATION DIRECTOR [address] [facility] [place] [address] Revolving Field Assembler Internal Medicine 02/22/25 Herbert Jay, DIRECT SUPPORT STAFF.GARDENING SUPERVISOR [address] [facility] [place] [address] Revolving Field Assembler Internal Medicine 04/20/25 Windows Infrastructure Engineer Relationship Specialty Start Date End Date Jose De Jesus Harrington MD [address] [facility] [place] [address] PCP - General Internal Medicine 12/06/14 Olimpia Gomez APRN.COMPENSATION DIRECTOR [address] [facility] [place] [address] Revolving Field Assembler Internal Medicine 02/22/25 Herbert Jay, DIRECT SUPPORT STAFF.GARDENING SUPERVISOR [address] [facility] [place] [address] Revolving Field Assembler Internal Medicine 04/20/25 Windows Infrastructure Engineer Relationship Specialty Start Date End Date Jose De Jesus Harrington MD [address] [facility] [place] [address] PCP - General Internal Medicine 12/06/14 Olimpia Gomez APRN.COMPENSATION DIRECTOR [address] [facility] [place] [address] Revolving Field Assembler Internal Medicine 02/22/25 Herbert Jay, DIRECT SUPPORT STAFF.GARDENING SUPERVISOR [address] [facility] [place] [address] [facility] Internal Medicine 04/20/25 Team Status: Active Member Role/Relationship Status Dates Dr. Jose De Jesus Harrington MD Family Provider Active Dr. Jose De Jesus Harrington MD Primary Care Provider Active Team Status: Inactive Member Role/Relationship Status Dates Dr. Jose De Jesus Harrington MD Primary Care Provider Active Start: May 31, 2025 Dr. Juana Peters MD Attending Provider Active Start: May 31, 2025 Team Status: Inactive Member Role/Relationship Status Dates Dr. Jose De Jesus Harrington MD Primary Care Provider Active Start: July 12, 2025 End: July 12, 2025 Dr. Jose De Jesus Harrington MD Referring Provider Active Start: July 12, 2025 End: July 12, 2025 Dr. Juana Peters MD Attending Provider Active Start: July 12, 2025 End: July 12, 2025 Team Status: Inactive Member Role/Relationship Status Dates Dr. Jose De Jesus Harrington MD Primary Care Provider Active Start: July 26, 2025 End: July 26, 2025 Dr. Jose De Jesus Harrington MD Referring Provider Active Start: July 26, 2025 End: July 26, 2025 Dr. Juana Peters MD Attending Provider Active Start: July 26, 2025 End: July 26, 2025 Team Status: Active Member Role/Relationship Status Dates Dr. Jose De Jesus Harrington MD Primary Care Provider Active Start: July 27, 2025 Dr. Augustin Moreira MD Attending Provider Active Start: July 27, 2025 Dr. Augustin Moreira MD Referring Provider Active Start: July 27, 2025 Team Status: Inactive Member Role/Relationship Status Dates Dr. Jose De Jesus Harrington MD Primary Care Provider Active Start: August 04, 2025 End: August 04, 2025 Dr. Jose De Jesus Harrington MD Referring Provider Active Start: August 04, 2025 End: August 04, 2025 Dr. Augustin Moreira MD Attending Provider Active Start: August 04, 2025 End: August 04, 2025 Team Status: Inactive Member Role/Relationship Status Dates Dr. Jose De Jesus Harrington MD Primary Care Provider Active Start: July 27, 2025 End: July 27, 2025 Dr. Augustin Moreira MD Attending Provider Active Start: July 27, 2025 End: July 27, 2025 Dr. Augustin Moreira MD Referring Provider Active Start: July 27, 2025 End: July 27, 2025 Team Status: Inactive Member Role/Relationship Status Dates Dr. Jose De Jesus Harrington MD Primary Care Provider Active Start: August 08, 2025 End: August 08, 2025 Dr. Jose De Jesus Harrington MD Referring Provider Active Start: August 08, 2025 End: August 08, 2025 Dr. Juana Peters MD Attending Provider Active Start: August 08, 2025 End: August 08, 2025 Goals (unrecognized section and content) Goals may be documented in a n alternate sectionGoals may be documented in an alternate sectionGoals may be documented in an alternate sectionGoals may be documented in an alternate sectionGoals may be documented in an alternate sectionGoals may be documented in an alternate sectionGoals may be documented in an alternate sectionGoals may be documented in an alternate sectionGoals may be documented in an alternate sectionGoals may be documented in an alternate sectionGoals may be documented in an alternate sectionGoals may be documented in an alternate section FOR RECORDS PERTAINING TO PATIENTS WHO ARE OR HAVE BEEN ENROLLED IN A CHEMICAL DEPENDENCY/SUBSTANCEABUSE PROGRAM, SOME INFORMATION MAY BE OMITTED. This clinical summary was aggregated from multiple sources. Caution should be exercised in using it in the provision of clinical care. This summary normalizes information from multiple sources, and as a consequence, information in this document may materially change the coding, format and clinical context of patient data. In addition, data may be omitted in some cases. CLINICAL DECISIONS SHOULD BE BASED ON THE PRIMARY CLINICAL RECORDS. [facility]. provides no warranty or guarantee of the accuracy or completeness of information in this document.
[2025-09-05 22:33] LABS: Hematocrit 40.4 % (37-47); Hemoglobin 12.7 g/dL (12.0-15.0); Immature Granulocytes Count 0.020 X10^3/uL (0.0-0.0); Mean Corp Hgb Conc 31.4 g/dL (32-36); Mean Corpuscular Volume 87.6 fL (81-99); Mean Platelet Vol. 10.9 fl (6.2-12.0); NRBC Flagged by Analyzer 0 % (0-5); Platelet Count 317 K/mm3 (150-450); RBC Distribution Width CV 14.1 % (11.6-14.6); RBC Distribution Width SD 45.1 fl (35.1-43.9); Red Blood Count 4.61 M/mm3 (4.2-5.4); White Blood Count 7.9 K/mm3 (4.4-11.0)
--- NOTE | 2025-09-05 22:35 | CT_ITS ---
PROCEDURE: BRAIN/HEAD WITHOUT CONTRAST 09/05/2025 REASON FOR EXAM: DIZZINESS TECHNIQUE: Procedure Code: CTBR Modality: CT Procedure: BRAIN/HEAD WITHOUT CONTRAST Coronal and Sagittal reconstruction series were provided. One or more dose reduction techniques were used (e.g., Automated exposure control, adjustment of the mA and/or kV according to patient size, use of iterative reconstruction technique. FINDINGS: No acute intracranial hemorrhage. No midline shift. Mild generalized atrophy. No extra-axial fluid collection is identified. Mild low attenuation in the cerebral white matter is nonspecific but likely represents mild chronic microvascular ischemic changes. No fracture. The calvarium is intact. The visualized paranasal sinuses and mastoid air cells are clear. CT/Brain/Head without Contrast IMPRESSION: No acute intracranial CT abnormality. Reading Location: [id number]
[2025-09-05 22:46] LABS: Prothrombin Time (Protime)PT. 25.3 SECONDS (11.7-14.9)
[2025-09-05 23:10] LABS: Anion Gap 11 (5-15); BUN 21 mg/dL (4-19); BUN/Creat Ratio 16.1 RATIO (10-20); Calcium,Total 9.9 mg/dL (7.6-11.0); Carbon Dioxide 20.8 mmol/L (21.0-32.0); Chloride 109 mmol/L (98-108); Estimated Creatinine Clearance 43.71 ml/min (50-250); Glucose 114 mg/dL (70-99); Magnesium 2.2 mg/dL (1.5-2.2); Potassium 4.2 mmol/L (3.3-5.1)
[2025-09-05 23:28] VITALS: BP 149/58; PULSE 86; RESP 16; TEMP 36.7; O2SAT 100
--- NOTE | 2025-09-05 23:34 | EDS_ITS ---
HPI History of Present Illness Chief Complaint: Dizziness Informant: patient and family Narrative Narrative: Patient is a 80-year-old female with past medical history of hypertension hyperlipidemia diabetes and previous pulmonary embolism currently on Coumadin. She states she has a remote history of vertigo. She reports that she was over at a family ember's house this evening for dinner. After eating she got up to leave and felt dizzy. She describes the dizziness as a sense of motion. She states it comes on quickly with position change and causes nausea without vomiting. She reports that if she remains still the symptoms resolve. She states that there has been no recent trauma and she denies any chest pain or syncope associated with this. 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 RBBB (right bundle branch block) Hypothyroidism GERD (gastroesophageal reflux disease) History of pulmonary embolism (~08/2017) Presence 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 (10/25/19) Atherosclerotic heart disease of [place] coronary artery without angina pectoris Mixed hyperlipidemia Essential hypertension Incisional hernia, without obstruction or gangrene History of gastric ulcer Obesity DM2 (diabetes mellitus, type 2) Pulmonary embolism (08/2017) Home Medications ?Medication ?Instructions ?Recorded ?Last Taken ?Type aspirin 81 mg chewable tablet 81 mg PO QHS [facility] 05/0110/25/19 History levothyroxine 112 mcg tablet 112 mcg PO DAILY thyroid 05/10/14 10/25/19 History nitroglycerin 0.4 mg sublingual 0.4 mg sublingual Q5M PRN Chest 05/10/14 Unknown History tablet Pain fenofibrate 160 mg tablet 160 mg PO DAILY cholesterol 09/14/19 10/25/19 History magnesium oxide 400 mg (241.3 mg 800 mg PO BID supplim ent 10/27/19 Unknown History magnesium) tablet atenolol 25 mg tablet 25 mg PO DAILY blood pressur e 07/10/20 Unknown History atorvastatin 40 mg tablet 40 mg PO QHS cholestorol 09/19 Unknown History hydrocortisone 2.5 % topical cream 1 applic topical BI D PRN Itching 07/10/20 Unknown History isosorbide mononitrate 30 mg 30 mg PO DAILY heart #90 tabs 08/10/20 Unknown Rx tablet,extended release 24 hr fosinopril 40 mg tablet 40 mg PO BID this is a dose 09/01/23 Unknown Rx increase #60 tabs warfarin 2.5 mg tablet 2.5 mg PO .TUTHSU 08/25/24 U nknown History warfarin 5 mg tablet 5 mg PO MOWEFRSA blood thinn er 08/25/24 Unknown History potassium chloride 20 mEq 20 meq PO QDAY #90 tabs 01/29 01/25 Unknown Rx tablet,extended release furosemide 40 mg tablet 40 mg PO Q OTHER DAY #90 tab s 02/16/25 Unknown Rx estradiol 0.01% (0.1 mg/gram) 1 g vaginal 3XW 08/04/25 Unknown History vaginal cream diazepam 2 mg tablet (Valium) 2 mg PO TID PRN Vertigo/ dizziness 09/05/25 Unknown Rx 5 days #15 tabs ondansetron 4 mg disintegrating 4 mg PO TID PRN nausea and 09/05/25 Unknown Rx tablet vomiting #21 tabs Allergy/AdvReac Type Severity Reaction Status Date / Time adhesive Allergy Rash Verified 09/05/25 21:42 amoxicillin (Amoxicillin) Allergy Rash Verified 09/05/25 21:42 ampicillin Allergy Rash Verified 09/05/25 21:42 cephalexin monohydrate (From Allergy Rash Verified 09/05/25 21:42 Keflex) lactose (lactose intolerant) Allergy Abd Verified 09/05/25 21:42 cramps/diarrhea Penicillins Allergy Rash Verified 09/05/25 21:42 Sulfa (Sulfonamide Allergy Rash Verified 09/05/25 21:42 Antibiotics) Family History Father CAD (coronary artery disease) Mother CVA (cerebral vascular accident) Hypertension Surgical History History of cardiac catheterization History of appendectomy Presence of coronary angioplasty implant and graft (~10/06/09) H/O hernia repair History of heart artery stent S/P cardiac catheterization S/P trigger finger release S/P hysterectomy S/P carpal tunnel release S/P tonsillectomy S/P colonoscopy (~05/2013) Social History household members: none housing: house number of children: 0 current occupational status: retired pets and animals: No Smoking Status: Former smoker how long ago did patient quit smokin yrs alcohol intake: current alcohol intake frequency: holidays/special occasions only Alcohol type: wine substance use type: does not use caffeine: No ROS ROS ED Constitutional Constitutional ED: Denies chills or fever(s) Eyes Eyes: Denies change in vision ENT ENT ED: Reports other Details: Negative tinnitus ; Denies ear pain or sore throat Cardiovascular Cardiovascular: Reports other Details: Negative syncope ; Denies chest pain Respiratory/Chest Respiratory/Chest: Denies cough or dyspnea Gastrointestinal Gastrointestinal: Reports nausea; Denies abdominal pain, diarrhea or vomiting Genitourinary Genitourinary ED: Denies dysuria Musculoskeletal Musculoskeletal: Denies myalgias Integumentary Denies rash Neurologic Neurologic: Reports other Details: Positive dizziness ; Denies headache(s) Hematologic/Lymphatic Hematologic/Lymphatic: Reports easy bleeding and easy bruising EXAM Physical Exam Const Vital Signs: 09/05/25 21:42 09/05/25 21:45 09/05/25 23:28 Temperature 97.9 F 98.1 F Temperature Source Oral Pulse Rate 55 L 86 Respiratory Rate 14 16 Blood Pressure 222/58 H 181/74 H 149/58 H Blood Pressure Mean 112 109 88 Pulse Ox 98 100 Oxygen Delivery Method Room Air Positive well nourished, well developed and obese General Appearance ED: well developed; Negative for pallor Nutritional Appearance: obese HEENT HEENT Narrative: Normocephalic atraumatic Bilateral canals are normal. Bilateral TMs show no findings of secondary infection such as erythema or air-fluid levels or bulging Eyes PERRL and EOMs intact bilaterally General Eye ED: Negative for scleral icterus Neck supple Neck Narrative: No nuchal rigidity or meningeal signs Resp normal respiratory effort and clear to auscultation bilaterally Resp Narrative: Breath sounds are diminished throughout but overall clear to auscultation without signs of respiratory distress Cardio regular rate and regular rhythm Rate: other Other Details: Occasional ectopic beat noted Extremity normal to inspection Neuro oriented x3, CN's II-XII intact bilaterally and no sensory deficits noted Neuro Narrative: GCS of 15 Cranial nerves II through XII are grossly intact without focal neurologic defici t No pronator drift no dysmetria no truncal ataxia Positive horizontal nystagmus is noted as well as positive Hallpike Chhaya exam on left NIH stroke scale score of 0 Sensorium / Orientation: alert Motor Exam: strength 5/5 throughout Psych mental status grossly normal Skin no rashes or lesions noted General Skin Exam: Negative for jaundice or pallor MDM MDM MDM Narrative Medical decision making narrative: Patient arrived to the ER hypertensive but has a past medical history of this. She reported history of vertigo and states that this felt similar nature. In order to ensure that her dizziness was not due to a spontaneous subarachnoid or subdural hemorrhage as she is on Coumadin a CT was obtained. In order to a check for acute blood loss anemia versus electrolyte abnormality or acute kidney injury basic labs were ordered as well. Labs revealed no clinically significant findings and head CT revealed chronic changes without acute bleed or mass. After receiving medication she had improvement of her vitals as well as improvement of her dizziness. She was able to ambulate with a steady gait in the ER. Therefore at this time with overall negative workup and improvement of symptoms and the fact she can ambulate with a steady gait there is no need for further intervention or admission and she is otherwise safe for discharge. History & Record Review Discussion w/independent historian: Patient and Family Lab Data Attestation: I reviewed the patient's lab results. Labs: Laboratory Results - last 24 hr 09/05/25 21:53 WBC 7.9 RBC 4.61 Hgb 12.7 Hct 40.4 MCV 87.6 MCH 27.5 MCHC 31.4 L RDW Std Deviation 45.1 H RDW Coeff of Angelina 14.1 Plt Count 317 MPV 10.9 Immature Gran % (Auto) 0.300 Neut % (Auto) 56.3 Lymph % (Auto) 30.5 [place] % (Auto) 9.6 Eos % (Auto) 2.8 Baso % (Auto) 0.5 Absolute Neuts (auto) 4.4 Absolute Lymphs (auto) 2.41 Nucleated RBC % 0 PT 25.3 H INR 2.3 Sodium 141 Potassium 4.2 Chloride 109 H Carbon Dioxide 20.8 L Anion Gap 11 BUN 21 H Creatinine 1.32 H Estim Creat Clear Calc 43.71 L Est GFR (MDRD) Non-Af 41 L BUN/Creatinine Ratio 16.1 Glucose 114 H Calcium 9.9 Magnesium 2.2 Radiography Diagnostic Testing: Clinical Impression(s) from Imaging Studies Brain CT 09/05/25 22:35 IMPRESSION: No acute intracranial CT abnormality. Reading Location: [facility] Discharge Plan Triage Chief Complaint: Dizziness ED Provider: Eric Mock Dx/Rx/DC Orders Clinical Impression: Peripheral vertigo, Essential hypertension, Mixed hyperlipidemia, DM2 (diabetes mellitus, type 2), Hypothyroidism, correction current use of anticoagulant Instructions: ED Vertigo, Unspecified Prescriptions: New ondansetron 4 mg tablet,disintegrating 4 mg PO TID PRN (Reason: nausea and vomiting) Qty: 21 0RF diazepam [Valium] 2 mg tablet 2 mg PO TID PRN (Reason: Vertigo/dizziness) 5 Days Qty: 15 0RF No Action fenofibrate 160 mg tablet 160 mg PO DAILY hydrocortisone 2.5 % cream 1 applic TOPICAL BID PRN (Reason: Itching) atorvastatin 40 mg tablet 40 mg PO QHS atenolol 25 mg tablet 25 mg PO DAILY warfarin 2.5 mg tablet 2.5 mg PO .TUTHSU potassium chloride 20 mEq tablet extended release 20 meq PO QDAY Qty: 90 3RF estradiol 0.01 % (0.1 mg/gram) cream 1 g vaginal 3XW nitroglycerin 0.4 MG tablet 0.4 mg SUBLINGUAL Q5M PRN (Reason: Chest Pain) Patient Comments: heart levothyroxine 112 MCG tablet 112 mcg PO DAILY Patient Comments: syhtroid aspirin 81 MG tablet,chewable 81 mg PO QHS Patient Comments: heart magnesium oxide 400 mg (241.3 mg magnesium) tablet 800 mg PO BID Patient Comments: magnesium isosorbide mononitrate 30 mg tablet extended release 24 hr 30 mg PO DAILY Qty: 90 3RF fosinopril 40 mg tablet 40 mg PO BID Qty: 60 11RF warfarin 5 mg tablet 5 mg PO MOWE Protocol: Dose Management Protocol Text: Patient Instructed to take: warfarin 5 mg (1 Tab) on MELISSA, TH, FR, SA warfarin 5 mg (1.5 Tabs) on MO, , WE Rx Instructions: Current dose 5 mg 4 days per week, 2.5 mg all others. Managed by Dr. Rosario furosemide 40 mg tablet 40 mg PO Q OTHER DAY Qty: 90 3RF Primary Care Provider: Earlene Rosario Referrals: Earlene Rosario MD [Primary Care Provider, Internal Medicine] Activity Restrictions/Additional Instructions: Your history and exam and workup indicate peripheral vertigo. This should resolve spontaneously as the crystals inside your inner ear which typically causes symptoms gradually moved down and out of the region. Please stop the Antivert/meclizine and begin using the Valium for improved vertigo/dizziness control. Your INR today was normal at 2.3. Please continue all of your other medications as directed by your doctor. Return to the ER should you have any further concerns Print Language: Portuguese Disposition Disposition: Home, Self Care Discharge Date/Time: 09/05/25 23:41
== END 2025-09-05 23:41 | disposition home or self-care (01) ==
PROVIDERS: Emergency Provider Emergency Medicine; PCP Internal Medicine; Visit Provider Emergency Medicine
DX: H81.399 Other peripheral vertigo, unspecified ear (principal); E11.9 Type 2 diabetes mellitus without complications; Z87.891 Personal history of nicotine dependence; Z90.710 Acquired absence of both cervix and uterus; Z79.01 Long term (current) use of 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s; I25.10 Atherosclerotic heart disease of native coronary artery without angina pectoris; E78.2 Mixed hyperlipidemia; I10 Essential (primary) hypertension; E03.9 Hypothyroidism, unspecified; Z86.711 Personal history of pulmonary embolism; Z79.82 Long term (current) use of aspirin; Z79.890 Hormone replacement therapy; Z79.899 Other long term (current) drug therapy; Z90.49 Acquired absence of other specified parts of digestive tract; Z95.5 Presence of coronary angioplasty implant and graft
CPT/HCPCS: 70450; 80048; 83735; 85025; 85610; 96374; 99283; A4216; J2405

== ENCOUNTER → 2025-10-04 | Outpatient (CLI) | payer MEDICARE, OTHER, SELFPAY ==
[2020-02-07 08:24] VITALS: BMI 45.7
--- NOTE | 2025-10-04 06:55 | ECHOD_ITS ---
Reason For Study Reason For Study: CAD/ASHD Procedure This was a 2D Doppler, Color Flow transthoracic echocardiogram. Exam performed in department. Left Ventricle Normal LV size. Mild assymetric septal hypertrophy. Left ventricular systolic function is hyperdynamic. The left ventricular ejection fraction is 70 %. Stage 2 diastolic dysfunction. No regional wall motion abnormalities noted. Right Ventricle Normal RV size. Normal systolic function. Atria There is mild biatrial dilatation. Mitral Valve Mild mitral annular calcification. Mild diffuse mitral valve thickening. Mild (1+) mitral valve insufficiency. Tricuspid Valve Normal tricuspid valve. Mild-Moderate (1-2+) tricuspid valve insufficiency. Pulmonary artery systolic pressure is 37 mmHg. Aortic Valve Trisinus/trileaflet aortic valve. Mild focal aortic valve thickening. Aortic sclerosis, no stenosis. Pulmonic Valve The pulmonic valve is not well visualized. Mild (1+) pulmonic valve insufficiency. Great Vessels Normal sized aortic root. Pericardium/Pleural No pericardial effusion. MMode/2D Measurements & Calculations LVIDd: 4.9 cm IVSd: 1.1 cm LVOT diam: 2.0 cm LVIDs: 2.0 cm LVPWd: 0.99 cm LVOT area: 3.0 cm2 RVDd: 3.2 cm FS: 59.3 % Ao root diam: 3.3 cm LAV(MOD-bp): 84.8 ml LVAd ap4: 29.4 cm2 LAV(MOD-bp) Indexed: 39.6 ml/m2 LVLd ap4: 7.9 cm LAV(MOD-sp2): 87.0 ml EDV(MOD-sp4): 89.5 ml LAV(MOD-sp4): 79.8 ml EDV(sp4-el): 93.2 ml LVAs ap4: 12.5 cm2 LVLs ap4: 6.2 cm ESV(MOD-sp4): 24.3 ml ESV(sp4-el): 21.5 ml EF(MOD-sp4): 72.8 % EF(sp4-el): 76.9 % LVAd ap2: 24.9 cm2 SV(MOD-sp4): 65.2 ml SV(MOD-sp2): 45.7 ml LVLd ap2: 8.1 cm SI(MOD-sp4): 30.5 ml/m2 SI(MOD-sp2): 21.3 ml/m2 EDV(MOD-sp2): 64.6 ml EDV(sp2-el): 64.4 ml LVAs ap2: 11.3 cm2 LVLs ap2: 6.4 cm ESV(MOD-sp2): 18.9 ml ESV(sp2-el): 17.0 ml EF(MOD-sp2): 70.7 % SV(sp4-el): 71.7 ml LA dimension(2D): 4.6 cm LA A4 area: 26.3 cm2 RA A4 area: 19.2 cm2 TAPSE: 2.6 cm Time Measurements MV dec time: 0.25 sec Doppler Measurements & Calculations MV E max simone: 81.0 cm/sec Lat Peak E' Simone: 8.3 cm/sec Med Peak E' Simone: 6.6 cm/sec MV A max simone: 92.7 cm/sec E/E' lat: 9.8 E/E' med: 12.2 MV E/A: 0.87 Ao V2 max: 146.0 cm/sec LV V1 max: 121.8 cm/sec MV dec slope: 326.3 cm/sec2 Ao max P.5 mmHg LV V1 max P.9 mmHg Ao V2 mean: 98.7 cm/sec LV V1 mean P.5 mmHg Ao mean P.5 mmHg LV V1 mean: 89.4 cm/sec Ao V2 VTI: 39.2 cm LV V1 VTI: 32.7 cm AV (velocity ratio): 0.83 PHUONG(I,D): 2.5 cm2 PHUONG(V,D): 2.5 cm2 SV(LVOT): 97.8 ml PA V2 max: 77.2 cm/sec TR max simone: 293.0 cm/sec TR max P.3 mmHg ECHO/Echo Complete Interpretation Summary The left ventricular ejection fraction is 70 %. Stage 2 diastolic dysfunction. There is mild biatrial dilatation. Mild (1+) mitral valve insufficiency. Mild-Moderate (1-2+) tricuspid valve insufficiency. Ordering Physician: Augustin Moreira Referring Physician: Earlene Rosario Performed By: Ivet Mercado RDCS
--- OUTSIDE RECORDS SUMMARY | 2025-10-04 07:00 | XMS RPT_ITS | CCD ---
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 Jose De Jesus Harrington Primary Care Provider Dr. Jose De Jesus Harrington Referring Provider Maddy TECHNOLOGY DIRECTOR, TECHNOLOGY DIRECTOR-C Gold Paige Attending Provider Jose De Jesus Harrington MD Primary Care Provider Jose De Jesus Harrington MD Primary Care Provider Dr. Jose De Jesus Harrington Primary Care Provider Dr. Jose De Jesus Harrington Referring Provider Markus TECHNOLOGY DIRECTOR, TECHNOLOGY DIRECTOR-C Victoriano Attending Provider Dr. Jose De Jesus Harrington Primary Care Provider Dr. Jose De Jesus Harrington Referring Provider Markus TECHNOLOGY DIRECTOR, TECHNOLOGY DIRECTOR-C Victoriano Attending Provider MD Alfredito Bowie Emergency Provider [phone] Yonatan Portillo Admit Provider [phone] Yonatan Portillo Attending Provider [phone] Dr. Yonatan Portillo Other Provider Bart, Dr. Garcia Attending Provider aBrt, Dr. Garcia Other Provider Sementi, Dr. Jennifer Whittaker Admit Provider Sementi, Dr. Jennifer Whittaker Attending Provider Sementi, Dr. Jennifer Whittaker Other Provider Sementi, Dr. Jennifer Whittaker Referring Provider Jose De Jesus Harrington MD Primary Care Provider Jay HOPPER OPERATOR.BUSINESS INITIATIVES MANAGER, Herbert Unavailable Patricia HOPPER OPERATOR.INSPECTOR AND MENDER, Olimpia Unavailable Patricia HOPPER OPERATOR.INSPECTOR AND MENDER, Olimpia Shiela Unavailable Patricia HOPPER OPERATOR.INSPECTOR AND MENDER, Olimpia Unavailable Len DIAZ, Dr. Jose De Jesus Donohue Primary Care Provider Len DIAZ, Dr. Jose De Jesus Donohue Referring Provider Harish DIAZ, Dr. Ruffin Attending Provider Harish DIAZ, Dr. Ruffin Referring Provider Patricia HOPPER OPERATOR.INSPECTOR AND MENDER, Olimpia Unavailable Jay HOPPER OPERATOR.BUSINESS INITIATIVES MANAGER, Herbert Unavailable Len DIAZ, Dr. Jose De Jesus Donohue Primary Care Provider Dr. Juana Peters MD Attending Provider Len DIAZ, Dr. Jose De Jesus Donohue Referring Provider Harish DIAZ, Dr. Ruffin Attending Provider Harish DIAZ, Dr. Ruffin Referring Provider Len DIAZ, Dr. Jose De Jesus Donohue Primary Care Physician Fran DIAZ, Dr. Arias Attending Physician Harish DIAZ, Dr. Ruffin Attending Physician Dr. Eric Mock DO Emergency Department Physic isabela SELF Referring Unavailable JAY, HERBERT Attending Unavailable TALAMPAS, JOSE DE JESUS D Primary Care Unavailable TALAMPAS, JOSE DE JESUS D Primary Care Unavailable TALAMPAS, JOSE DE JESUS D Primary Care Unavailable TALAMPAS, JOSE DE JESUS D Primary Care Unavailable PATRICIAOLIMPIA Attending Unavailable TALAMPAS, JOSE DE JESUS D Primary Care Unavailable TALAMPAS, JOSE DE JESUS D Primary Care Unavailable TALAMPAS, JOSE DE JESUS D Primary Care Unavailable ROSEANN ELIZABETH Attending Unavailable TALAMPAS, JOSE DE JESUS D Primary Care Unavailable TALAMPAS, JOSE DE JESUS D Referring Unavailable TALAMPAS, JOSE DE JESUS D Primary Care Unavailable TALAMPAS, JOSE DE JESUS D Primary Care Unavailable TALAMPAS, JOSE DE JESUS D Primary Care Unavailable PATRICIAOLIMPIA Referring Unavailable TALAMPAS, JOSE DE JESUS D Primary Care Unavailable JAY, HERBERT Attending Unavailable TALAMPAS, JOSE DE JESUS D Primary Care Unavailable TALAMPAS, JOSE DE JESUS D Primary Care Unavailable TALAMPAS, JOSE DE JESUS D Primary Care Unavailable JAY, HERBERT Referring Unavailable TALAMPAS, JOSE DE JESUS D Primary Care Unavailable TALAMPAS, JOSE DE JESUS D Primary Care Unavailable JAYJOANNEI Referring Unavailable JAY HERBERT Attending Unavailable TALAMPAS, JOSE DE JESUS D [...] Jose De Jesus D Primary Care Unavailable Jose De Jesus Harrington Primary Care Unavailable Eric Mock Attending Unavailable Allergies Allergy Classification Reported Allergen(s) Allergy Type Date of Onset Reaction(s) Facility (20 sources) Adhesive Tape; Translations: [ADHESIVE TAPE (ROSINS)] Propensity to adverse reactions (disorder) 5 Other: See Comments [facility] Repository (20 sources) amoxicillin; Translations: [AMOXICILLIN] Drug Allergy 5 [facility] Repository (20 sources) ampicillin; Translations: [AMPICILLIN] Drug Allergy 5 [facility] Repository (13 sources) cephalexin; Translations: [CEPHALEXIN] Drug Allergy 5 [facility] Repository (20 sources) niacin; Translations: [NIACIN] Drug Allergy 5 [facility] Repository (20 sources) Penicillins; Translations: [PENICILLINS] Propensity to adverse reactions (disorder) 9 [facility] Repository (20 sources) Sulfonamides (Antibiotic); Translations: [SULFA (SULFONAMIDE ANTIBIOTICS)] Propensity to adverse reactions (disorder) 5 [facility] (17 sources) Adhesive agent; Translations: [adhesive] Allergy to substance 2 [facility] (17 sources) Cephalexin; Translations: [cephalexin monohydrate] Drug Allergy 2 [facility] (3 sources) metFORMIN Drug Allergy 3 Diarrhea [facility] (20 sources) Adhesive Tape-Silicones; Translations: [ADHESIVE TAPE-SILICONES] Drug Allergy 4 [facility] Work Phone: (7 sources) Lactose Drug Allergy 5 Abd cramps/diarrhea [facility] (1 source) Lactose Drug Allergy 5 [facility] Repository Medications Current Medications Medication Drug Class(es) Dates Sig (Normalized) Sig (Original) aspirin 81 mg chewable tablet (20 sources) Platelet Aggregation Inhibitor, Nonsteroidal Anti-inflammatory Drug Start: 05-10-2014 take 1 tablet by mouth at bedtime Start: 01-08-2010 aspirin(ECOTRI N LOW STRENGTH 81 MG TAB) Take one(1) tablet daily. 0 01/08/2010 Active Comment on above: Take one(1) tablet d aily. atenolol 25 mg oral tablet (20 sources) beta-Adrenergic Alex Start: 07-10-2020 End: 04-19-2025 take 1 tablet by mouth once daily Start: 05-10-2014 End: 07-10-2020 Atenolol 50 MG [...] tablet (20 sources) HMG-CoA Reductase Inhibitor Start: 07-10-2020 End: 10-20-2024 take 1 tablet by mouth at bedtime Start: 05-10-2014 End: 07-10-2020 Atorvastatin 80 MG [...] Comment on above: Take 1 capsule by [facility] three times daily for 10 days. cholecalciferol 0.05 mg oral capsule (20 sources) Vitamin D Start: 10-17-20 take 1 capsule by mouth once daily [...] Comment on above: Take 1 capsule by [facility] once daily. diazePAM 2 mg oral tablet (16 sources) Benzodiazepine Start: 09-05-2025 take 1 tablet by mouth three times daily as needed for dizziness Start: 03-08-2023 End: 03-16-2023 take 1 tablet by mouth every eight [...] DAILY NEEDED as needed for Vertigo 10 0 March 08, 2023 12:00am August 14, 2023 11:37am Comment on above: Take 1 tablet by [facility] every 8 hours as needed (back spasm) for up to 3 days. Take by mouth. estradiol 0.1 mg/ml vaginal cream (4 sources) Estrogen Start: 08-04-2025 fenofibrate 160 mg oral tablet (20 sources) Peroxisome Proliferator Receptor alpha Agonist Start: 09-14-2019 End: 04-19-2025 take 1 tablet by mouth once daily Start: 05-10-2014 End: 09-14-2019 take 1 tablet by mouth once daily Fenofibrate Nanocrystallized 145 MG tablet Discontinued 145 mg PO DAILY May 10, 2014 12:00am September 14, 2019 2:57pm Comment on above: Take 1 tablet by anel th once daily. fosinopril sodium 40 mg oral tablet (20 sources) Angiotensin Converting Enzyme Inhibitor Start: 09-01-2023 End: 09-01-2023 take 1 tablet by mouth twice daily Start: 05-10-2014 End: 04-19-2025 take 1 tablet by mouth once daily Fosinopril 40 MG tablet Discontinued 40 mg PO DAILY May 10, 2014 12:00am September 01, 2023 4:22pm BP Comment on above: Take 1 tablet by anel once daily. furosemide 40 mg oral tablet (14 sources) Loop Diuretic Start: 02-16-2025 take 1 tablet by mouth every other day Start: 02-09-2025 End: 02-16-2025 take 1 tablet by mouth once daily Furosemide 40 mg tablet Discontinued 40 mg PO daily 90 3 February 09, 2025 12:00am February 16, 2025 3:37pm hydrocortisone 0.025 mg/mg topical ointment (20 sources) Corticosteroid Start: 04-18-2021 hydrocortisone 2.5 % ointment Apply 1 application to affected area twice daily. 30 g 04/18/2021 Active Start: 09-14-2019 End: 07-10-2020 Start: 09-14-2019 End: 07-10-2020 Hydrocortisone 2.5 % [...] 10-20-20 take 1 tablet by mouth once daily, then take 1 tablet by mouth every twenty-four hours Comment on above: Take 1 tablet by anel once daily. levothyroxine sodium 0.112 mg oral tablet (20 sources) l-Thyroxine Start: 05-10-20 End: 10-20-20 take 1 tablet by mouth once daily Comment on above: Take 1 tablet by anel once daily. magnesium oxide 400 mg oral tablet (20 sources) Start: 10-27-20 End: 10-20-20 take 1 tablet by mouth twice daily Start: 12-11-2017 End: 02-25-2024 take 2 tablets [...] on above: Take 2 tablets by mo [facility] twice daily. Take 2 tablets by mo [facility] two times a day. meclizine hydrochloride 25 mg oral tablet (20 sources) Antiemetic Start: take 1 tablet by mouth every six [...] on above: Take 1 tablet by anel every 6 hours as needed (dizziness). (prescription given from ER) Multivitamin With Folic Acid (9 sources) Start: 05-10-20 take 1 tablet by mouth once daily [...] 11:37am Start: 05-10-2014 take 1 tablet by anel [...] sources) Nitrate Vasodilator Start: 05-10-2014 End: 04-19-2024 Start: 05-10-2014 Nitroglycerin Active 0.4 MG SL Q5M May 09, 2014 11:00pm Comment on above: Dissolve 1 tablet un deborah the tongue as needed. DISSOLVE ON TONGUE FOR CHEST PAIN. IF NO PAIN RELIEF, CALL 911 omeprazole 40 mg delayed release oral capsule (20 sources) Proton Pump Inhibitor Start: 12-29-19 End: 04-14-20 take 1 capsule by mouth once daily omeprazole (PRILOSEC) 40 mg capsule Take 1 capsule by mouth once daily. 90 capsule 3 04/19/2025 04/14/2026 Active Comment on above: Take 1 capsule by mo [facility] once daily. ondansetron 4 mg disintegrating oral tablet (1 source) Serotonin-3 Receptor Antagonist Start: 09-05-20 take 1 tablet by mouth three times daily as needed for nausea and vomiting oxymetazoline hydrochloride 0.5 mg/ml nasal spray (20 sources) Start: 03-14-20 oxymetazoline hcl(AFRIN SINUS NO DRIP 0.05 % NASAL MIST) as necessary 0 03/14/2009 Active Comment on above: as necessary potassium chloride 20 meq extended release oral tablet (7 sources) Start: 02-10-20 take 1 tablet by mouth once daily warfarin sodium 5 mg oral tablet (20 sources) Vitamin K Antagonist Start: 08-25-20 Start: 09-26-2023 End: 08-25-2024 Warfarin 7.5 mg tablet Disco ntinued 7.5 mg PO MOTUWE September 26, 2023 12:00am August 25, 2024 2:01pm blood thinner Start: 08-06-2022 End: 09-01-2023 warfarin (COUMADIN) 5 mg tab 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 Managed by Dr. Harrington Please contact the information source for Protocol details. Start: 09-08-2018 End: 04-24-2022 take 1 tablet by mouth once daily, then take 1 tablet by mouth every month Warfarin 5 mg tablet Discontinued 5 mg PO DAILY Protocol: Patient Instructed to take:warfarin 5 mg (1 Tab) on , , , SAwarfarin 5 mg (1.5 Tabs) on , , WE October 18, 2019 6:45pm April 24, 2022 10:49am Please contact the information source for Protocol details. Start: 10-22-2017 End: 03-17-2018 take 1 tablet by mouth once Warfarin 5 MG tablet Disco ntinued 5 mg PO every Friday, , , Sat October 22, 2017 1:00am March 17, 2018 8:57am Start: 10-22-2017 End: 03-17-2018 Warfarin 7.5 MG tablet Disco ntinued 7.5 mg PO MOWEOctober 22, 2017 1:00am March 17, 2018 8:57am [...] / oxyCODONE hydrochloride 5 mg oral tablet (13 sources) Opioid Agonist Start: 03-08-2023 End: 08-14-2023 Oxycodone-Acetaminophen (Percocet) 5-325 mg tablet Discontinued 1 {tbl} PO Q8H as needed for pain 10 3 March 08, 2023 August 14, 2023 11:37am Strain of lumbar region Strain of muscle, fascia and tendon of lower back, initial encounter Start: 03-08-2023 End: 03-13-2023 oxyCODONE-acetaminophen (PER COCET) 5-325 mg tablet Take by mouth. 0 03/08/2023 03/13/2023 Discontinued Comment on above: Take by mouth. [id number] 200 actuat albuterol 0.09 mg/actuat metered dose inhaler (6 sources) beta2-Adrenergic Agonist Start: 023 End: 023 take 2 puff(s) by inhalation every four hours as needed for cough albuterol HFA (PROVENTIL HFA, VENTOLIN HFA) 90 mcg/actuation inhaler Indications: Sinobronchitis Inhale 2 Puffs as instructed every 4 hours as needed for wheezing/shortness of breath (cough). 1 Each 0 02/21/2023 03/14/2023 Discontinued Comment on above: Inhale 2 Puffs as in structed every 4 hours as needed for wheezing/shortness of breath (cough). amLODIPine 2.5 mg oral tablet (20 sources) Dihydropyridine Calcium Channel Alex Start: End: take 1 tablet by mouth once daily Amlodipine 2.5 mg tablet Discontinued 2.5 mg PO daily August 25, 2024 12:00am February 09, 2025 4:42pm Start: 09-11-2023 End: 10-08-2023 take 1 tablet by mouth once daily Amlodipine 5 mg tablet Discontinued 5 mg PO DAILY 30 10September 11, 2023 12:00am October 08, 2023 8:49pm blood presure atropine sulfate 0.025 mg / diphenoxylate hydrochloride 2.5 mg oral tablet (1 source) Anticholinergic, Cholinergic Muscarinic Antagonist, Antidiarrheal Start: 10-04-2024 End: 10-04-2024 take 1 tablet by mouth every six hours as needed for diarrhea and diarrhea diphenoxylate-atropine (LOMOTIL) 2.5-0.025 mg per tablet Indications: Diarrhea, unspecified type Take 1 tablet by mouth four times a day as needed for diarrhea for up to 14 days. 56 tablet 10/04/2024 10/04/2024 Discontinued azelastine hydrochloride 0.137 mg/actuat metered dose nasal spray (16 sources) Histamine-1 Receptor Antagonist Start: 08-10-2017 End: 07-10-2020 Azelastine 137 MCG/0.137 ML aerosol,spray Discontinued 137 ug NS NEEDED as needed for Allergies August 10, 2017 12:00am July 10, 2020 1:26pm benzonatate 100 mg oral capsule (6 sources) Non-narcotic Antitussive Start: 02-21-2023 End: 03-14-2023 take 1-2 capsules by mouth three times daily as needed for cough benzonatate (TESSALON PERLES) 100 mg capsule Indications: Sinobronchitis Take 1-2 capsules by mouth three times daily as needed for cough. 60 capsule 1 02/21/2023 03/14/2023 Discontinued Comment on above: Take 1-2 capsules by mouth three times daily as needed for cough. calcium carbonate 1500 mg oral tablet (16 sources) Start: 05-10-2014 End: 09-14-2019 take 1 tablet by mouth once daily Calcium Carbonate 600 MG tablet Discontinued 600 mg PO DAILY@0800 May 10, 2014 12:00am September 14, 2019 2:58pm clindamycin 300 mg oral capsule (15 sources) Lincosamide Antibacterial Start: 03-05-2023 End: 08-14-2023 take 1 capsule by mouth every six hours Clindamycin Hcl (Cleocin Hcl) 300 mg capsule Discontinued 300 mg PO EVERY 6 HOURS 40 0 March 05, 2023 12:00am August 14, 2023 11:36am Comment on above: Take by mouth. clopidogrel 75 mg oral tablet (20 sources) [id number] Platelet Inhibitor Start: 10-18-2019 End: 01-10-2021 take 1 tablet by mouth once daily Clopidogrel 75 mg tablet Discontinued 75 mg PO DAILY 90 3 August 10, 2020 1:53pm January 10, 2021 2:43pm 0.8 ml enoxaparin sodium 150 mg/ml prefilled syringe (20 sources) Low Molecular Weight Heparin Start: 07-17-2022 enoxaparin (LOVENOX) 120 mg/0.8 mL injection Indications: [...] dose nasal spray (20 sources) Corticosteroid Start: 023 End: 023 take 2 spray(s) by mouth [...] release oral tablet (20 sources) Biguanide Start: End: take 1 tablet by mouth [...] Comment on above: [facility] With [facility] 24 hr mirabegron 50 mg extended release oral tablet (16 sources) beta3-Adrenergic Agonist Start: End: take 1 tablet by mouth once daily Mirabegron (Myrbetriq) 50 mg tablet extended release 24 hr Discontinued 50 mg PO DAILY October 29, 2021 1:00am April 24, 2022 10:46am Multivitamin With Folic Acid 1 TABLET tablet (7 sources) Start: 014 End: take 1 tablet by mouth once daily Multivitamin With Folic Acid 1 TABLET tablet Discontinued 1 {tbl} PO DAILY May 10, 2014 12:00am August 14, 2023 11:37am nitrofurantoin, macrocrystals 25 mg / nitrofurantoin, monohydrate 75 mg oral capsule (5 sources) Nitrofuran Antibacterial Start: 025 End: take 1 capsule by mouth twice daily at mealtime Nitrofurantoin Monohyd/M-Cryst (Macrobid) 100 mg capsule Discontinued 100 mg PO TWICE A DAY 14 0 July 20, 2025 12:00am August 04, 2025 2:48pm must administer with a meal/food nystatin [id number] unt/ml oral suspension (16 sources) Polyene Antifungal Start: 018 End: Nystatin 100,000 UNIT/ML suspension Discontinued [id number] U PO NEEDED as needed for Mouth Irritation April 07, 2018 12:00am September 14, 2019 2:58pm 24 hr oxybutynin chloride 15 mg extended release oral tablet (17 sources) Cholinergic Muscarinic Antagonist Start: 020 End: take 1 tablet by mouth once [...] 1 tablet by anel th once daily. solifenacin succinate 5 mg oral tablet (20 sources) Cholinergic Muscarinic Antagonist Start: 2 End: 5 take 1 tablet by mouth once daily [...] on above: Take one tablet by m out daily. vibegron (GEMTESA) 75 mg tablet (15 [...] 3b chronic kidney disease (HCC)] Onset: 1 Conditions associated with dizziness or vertigo (3 sources) Peripheral vertigo; Translations: [Other peripheral vertigo, unspecified ear] Onset: 5 09-05-2025 Episodic Conduction disorders (16 sources) Right bundle branch block; Translations: [Unspecified right bundle-branch block] 02-08-2020 Chronic Coronary atherosclerosis and other heart disease (20 sources) Atherosclerotic heart disease of [place] coronary artery without angina pectoris; Translations: [Coronary atherosclerosis] Onset: 9 12-30-2017 Chronic Coronary atherosclerosis and other heart disease (20 sources) Patient post percutaneous transluminal coronary angioplasty; Translations: [Coronary angioplasty status] Onset: 0 12-15-2009 Episodic Comment on above: PTCA/LLUVIA to LAD 05/09 @ [id number]/25/2019:Single vessel CAD of the mid LCXNon obstructive coronary arteries; Widely patent mid LAD stents. Successful PTCA/LLUVIA mid LCX with a 3.0 x 16 Promus Synergy 10/25/2019 per NALLELY @ [facility] Diabetes mellitus with complications (20 sources) Type 2 diabetes mellitus; Translations: [Type 2 diabetes mellitus with diabetic chronic kidney disease] Onset: 4 Resolved: 8 04-16-2021 Chronic Diabetes mellitus without complication (2 sources) Diabetes mellitus without complication; Translations: [Type 2 diabetes mellitus with stage 3a chronic kidney disease, without long-term current use of insulin (HCC)] Onset: 1 Disorders of lipid metabolism (20 sources) Mixed hyperlipidemia; Translations: [Mixed hyperlipidemia] Onset: 3 02-22-2013 Chronic E Codes: Fall (18 sources) Fall; Translations: [Unspecified fall, initial encounter] 09-25-2023 Episodic Esophageal disorders (19 sources) Gastroesophageal reflux disease; Translations: [Gastro-esophageal reflux disease without esophagitis] 10-25-2019 Chronic Essential hypertension (20 sources) Essential hypertension; Translations: [Essential (primary) hypertension] Onset: 6 12-12-2015 Chronic Fluid and electrolyte disorders (1 source) Hyperkalemia; Translations: [Hyperkalemia] Episodic Fracture of upper limb (14 sources) Open fracture thumb distal phalanx, base; Translations: [Displaced fracture of distal phalanx of right thumb, initial encounter for open fracture] 03-05-2023 Episodic Genitourinary symptoms and ill-defined conditions (20 sources) Urinary incontinence; Translations: [Unspecified urinary incontinence] 02-22-2013 Chronic Genitourinary symptoms and ill-defined conditions (17 sources) Urinary symptoms ; Translations: [Unspecified symptoms and signs involving the genitourinary system] Onset: 5 Episodic Hypertension with complications and secondary hypertension (20 sources) Hypertensive renal disease; Translations: [Hypertensive chronic kidney disease with stage 1 through stage 4 chronic kidney disease, or unspecified chronic kidney disease] Onset: 1 04-16-2021 Chronic Immunizations and screening for infectious disease (2 sources) Requires varicella vaccination; Translations: [Encounter for immunization] Onset: 5 Episodic Inflammation; infection of eye (except that caused by tuberculosis or sexually transmitteddisease) (1 source) Hordeolum externum of upper eyelid of left eye; Translations: [Hordeolum externum left upper eyelid] 10-17-2023 Episodic Malaise and fatigue (17 sources) Asthenia; Translations: [Other malaise] 10-07-2023 Episodic Medical examination/evaluation (1 source) Encounter for preprocedural cardiovascular examination; Translations: [Encounter for preprocedural cardiovascular examination] Onset: 8 Episodic Menopausal disorders (20 sources) Atrophic vaginitis; Translations: [Postmenopausal atrophic vaginitis] 08-25-2009 Chronic Nutritional deficiencies (20 sources) Vitamin D deficiency; Translations: [Vitamin D deficiency, unspecified] Onset: 2 Chronic Open wounds of extremities (14 sources) Laceration of right thumb; Translations: [Laceration without foreign body of right thumb without damage to nail, initial encounter] 03-05-2023 Episodic Other aftercare (20 sources) Long-term current use of anticoagulant; 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] Onset: 8 Episodic Other aftercare (10 sources) Patient encounter status; Translations: [Other [facility] (current[facility] drug therapy] Episodic Other aftercare (11 sources) 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; Translations: [Long-term (current) use of 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s] Onset: 8 Episodic Other aftercare (1 source) Drug therapy finding; Translations: [prison (current) use of 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s] 09-23-2023 Episodic Other and ill-defined heart disease (12 sources) Diastolic dysfunction; Translations: [Other ill-defined heart diseases] 08-25-2024 Chronic Other and ill-defined heart disease (1 source) Other ill-defined heart diseases; Translations: [Other ill-defined heart diseases] Onset: Chronic Other and unspecified benign neoplasm (2 sources) History of polyp of colon; Translations: [Personal history of colonic polyps] 09-01-2023 Episodic Other connective tissue disease (1 source) Spasm; Translations: [Other muscle spasm] Episodic Other connective tissue disease (11 sources) Pain in right lower limb; Translations: [Pain in right leg] 09-25-2023 Episodic Other connective tissue disease (7 sources) Pain in right leg; Translations: [Pain in limb] 09-25-2023 Episodic Other connective tissue disease (2 sources) Triggering of digit; Translations: [Trigger finger, left ring finger] 10-20-2024 Episodic Other diseases of bladder and urethra (20 sources) Overactive bladder; Translations: [Overactive bladder] 10-07-2023 [...] nutritional; endocrine; and metabolic disorders (20 sources) Obesity; Translations: [Obesity, unspecified] 09-14-2018 Chronic [...] disorders (1 source) Hypercalcemia; Translations: [Hypercalcemia] Onset: 5 Chronic Other nutritional; endocrine; and metabolic disorders (3 sources) Body mass index (BMI) 40.0-44.9, adult; Translations: [Body mass index (BMI) 40.0-44.9, adult (HCC)] Onset: 4 Chronic Other nutritional; endocrine; [...] conditions (not mental disorders or infectious disease) (14 sources) Serum creatinine raised; Translations: [Other specified abnormal findings of blood chemistry] Episodic Other skin disorders (20 sources) Localized scleroderma; Translations: [Localized scleroderma [morphea]] Onset: 2 07-20-2012 Chronic Other upper respiratory disease (20 sources) Chronic rhinitis; Translations: [Chronic rhinitis] Onset: 9 06-06-2009 Chronic Other upper respiratory disease (16 sources) Bleeding from nose; Translations: [Epistaxis] 02-09-2020 Episodic Other upper respiratory disease (16 sources) Anterior epistaxis; Translations: [Epistaxis] 10-14-2020 Episodic [...] Spondylosis; intervertebral disc disorders; other back problems (12 sources) Spasm of back muscles; Translations: [Muscle [...] present (HCC)] Onset: 4 Urinary tract infections (13 sources) Urinary tract infectious disease; Translations: [Urinary [...] disorder, unspecified side] Onset: 5 04-19-2025 Episodic Other aftercare (1 source) Encounter for therapeutic drug level monitoring; Translations: [Encounter for therapeutic drug monitoring] Onset: 5 Episodic Other connective tissue disease (20 sources) Bilateral plantar fasciitis; Translations: [Plantar fascial fibromatosis] Onset: 6 11-26-2021 Episodic Other connective tissue disease (1 source) Trigger finger, left ring finger; Translations: [Trigger ring finger of left hand] Onset: 5 Episodic Other gastrointestinal disorders (20 sources) Occult blood in stools; Translations: [Other fecal abnormalities] Onset: 3 Resolved: 3 08-23-2013 Episodic Other gastrointestinal disorders (1 source) Diarrhea, unspecified; Translations: [Diarrhea, unspecified type] Onset: 4 Episodic Other non-traumatic joint disorders (1 source) Stiffness of left hand, not elsewhere classified; Translations: [Morning joint stiffness of hand, left] Onset: 5 Episodic Other non-traumatic joint disorders (1 source) Stiffness of right hand, not elsewhere classified; Translations: [Morning joint stiffness of right hand] Onset: 5 Episodic Other upper respiratory disease (20 sources) [...] Test Name Value Interpretation Reference Range Facility CNOVon 09-09-2025 CNOV Office Visit (INTMWS ) JEANETTEYOBANI ([id number]) 1945 F Date Time Provider Department 09/09/25 10:40 AM HERBERT JAY INTMWS During your visit today, we recorded the following information about you: Pulse Respiration Blood pressure Weight 64/minute 16/minute 146/60 112.8 kg Herbert Jay APRN.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 She was seen at [facility] on JulySeptember 05, 2025 for dizziness. She underwent CT of brain and head without contrast that showed no acute intercranial abnormality. She was advised she had peripheral vertigo. Notes indicated this should resolve spontaneously return back to correct location. Advised to stop meclizine and switch to Valium for improved control. Pao is a 80-year-old female presenting for follow-up after a recent ER visit for dizziness. Dizziness: - Sudden onset of dizziness while at her niece's house, prompting an ER visit. - Unable to take meclizine at home due to being at her niece's house. - Assisted by EMS to her niece's car for transport to the hospital. - Treated with Valium in the ER, which provided relief. - Discharged home the same night; no further episodes of severe dizziness. - Reports occasional mild weird off feeling that resolves within seconds. - Has not needed to take Valium since the ER visit. - Denies interest in home exercises or physical therapy for vertigo. Immunizations: - Requests flu shot today. - Intends to get the COVID booster at a pharmacy. Care everywhere notes also indicate history of drug-eluting stents to the LAD and left circumflex on aspirin Imdur and atenolol. Stress test advised to rule out silent ischemia. Complete follow-up echocardiogram. Continued on warfarin for pulmonary embolism history. [facility] follows. Sees Dr. Peters urogyneclogy at [facility] for bladder concerns. ROS Genitourinary: (+) bladder problems Neurological: (+) dizziness Objective BP 146/60 Pulse 64 Resp 16 Wt 112.8 kg (248 lb 10.9 oz) SpO2 97% BMI 43.36 kg/m? Physical Exam Vitals and [...] There is no guarding or rebound. Musculoskeletal: Right lower leg: No edema. Left [...] Penicillins Rash Sulfa (Sulfonamide * Rash Medications diazePAM (VALIUM) 2 mg tablet Take 2 mg by mouth every 8 hours as needed (dizziness/vertigo). estradiol (ESTRACE) 0.01 % (0.1 mg/gram) vaginal cream Use 1 g vaginally. as direccted omeprazole (PRILOSEC) 40 mg capsule Take 1 capsule by mouth once (more content not included)... Normal [facility] Absolute lymphocyte countOrd ered By: Eric Mock on 09-05-2025 Lymphocytes Auto (Unsp spec) [#/Vol] 2.41 10*3/uL 0.83-4.51 [facility] Absolute neutrophil countOrd ered By: Eric Mock on 09-05-2025 Neutrophils (Bld) [#/Vol] 4.4 10*3/uL 2.0-7.7 [facility] Anion gap in Serum or Plasma Ordered By: Eric Mock on 09-05-2025 Anion gap [Moles/Vol] 11 mmol/L 5-15 [facility] Automated lymphocyte count a s percentage of total leukocytesOrdered By: Eric Mock on 09-05-2025 Lymphocytes/100 WBC Auto (Unsp spec) 30.5 % 19-41 [facility] BUN/creatinine ratioOrdered By: Eric Mock on 09-05-2025 Urea nitrogen/Creatinine [Mass ratio] 16.1 mg/mg 10-20 [facility] Basic Metabolic Profile (BMP )on 09-05-2025 BUN/CRE 16.1 RATIO Normal 09-19 [facility] Comment on above: Performed By: #### L 500.2500, L100.0100, L300.3900, L501.5200 #### [facility] [address] [place], [address] Calcium [Mass/Vol] 9.9 mg/dL Normal 7.6-11.[address] [facility] Comment on above: Performed By: #### L 500.2500, L100.0100, L300.3900, L501.5200 #### [facility] [address] [place], [address] Chloride [Moles/Vol] 109 mmol/L High 98-108 [facility] Comment on above: Performed By: #### L 500.2500, L100.0100, L300.3900, L501.5200 #### [facility] [address] [place], [address] CO2 [Moles/Vol] 20.8 mmol/L Low 21.0-32.0 [facility] Comment on above: Performed By: #### L 500.2500, L100.0100, L300.3900, L501.5200 #### [facility] [address] [place], [address] Creatinine [Mass/Vol] 1.32 mg/dL High 0.70-1.20 [facility] Comment on above: Performed By: #### L 500.2500, L100.0100, L300.3900, L501.5200 #### [facility] [address] [place], [address] ECRCL 43.71 ml/min Low 50-250 [facility] Comment on above: Performed By: #### L 500.2500, L100.0100, L300.3900, L501.5200 #### [facility] [address] [place], [address] GAP 11 Normal 5-15 [facility] Comment on above: Performed By: #### L 500.2500, L100.0100, L300.3900, L501.5200 #### [facility] [address] [place], [address] GFR/1.73 sq M.predicted among non-blacks MDRD (S/P/Bld) [Vol rate/Area] 41 mL/min/{1.73_m2} Low >60 [facility] Comment on above: Result Comment: mL/m in/1.73m2 CKD-EPI Creatinine Equation (2020) Performed By: #### L 500.2500, L100.0100, L300.3900, L501.5200 #### [facility] [address] [place], [address] Glucose [Mass/Vol] 114 mg/dL High 70-[address] [facility] Comment on above: Performed By: #### L 500.2500, L100.0100, L300.3900, L501.5200 #### [facility] [address] [place], [address] Potassium [Moles/Vol] 4.2 mmol/L Normal 3.3-5.1 [facility] Comment on above: Performed By: #### L 500.2500, L100.0100, L300.3900, L501.5200 #### [facility] [address] [place], [address] Sodium [Moles/Vol] 141 mmol/L Normal 133-[address] [facility] Comment on above: Performed By: #### L 500.2500, L100.0100, L300.3900, L501.5200 #### [facility] [address] [place], [address] Urea nitrogen [Mass/Vol] 21 mg/dL High 4-19 [facility] Comment on above: Performed By: #### L 500.2500, L100.0100, L300.3900, L501.5200 #### [facility] [address] [place], [address] Basophil percentageOrdered B y: Eric Mock on 09-05-2025 Basophils/100 WBC (Bld) 0.5 % 0-1 [facility] Brain/Head without Contrasto n 09-05-2025 Brain/Head without Contrast [facility] Services [address] [place] [address] Brain/Head without Contrast MR#: [id number] Acct: [id number] Name: YOBANI REID Rep #: [id number] : 1945 F 80 From: Franklin Meyer MD PCP: Dr. Jose De Jesus Harrington MD Status: REG ER Study: Brain/Head without Contrast Date of Exam: 05/25 Exam# [id number] Ordering Dr: Eric Mock DO PROCEDURE: BRAIN/HEAD WITHOUT CONTRAST 09/05/2025 REASON FOR EXAM: DIZZINESS TECHNIQUE: Procedure Code: CTBR Modality: CT Procedure: BRAIN/HEAD WITHOUT CONTRAST Coronal and Sagittal reconstruction series were provided. One or more dose reduction techniques were used (e.g., Automated exposure control, adjustment of the mA and/or kV according to patient size, use of iterative reconstruction technique. FINDINGS: No acute intracranial hemorrhage. No midline shift. Mild generalized atrophy. No extra-axial fluid collection is identified. Mild low attenuation in the cerebral white matter is nonspecific but likely represents mild chronic microvascular ischemic changes. No fracture. The calvarium is intact. The visualized paranasal sinuses and mastoid air cells are clear. CT/Brain/Head without Contrast IMPRESSION: No acute intracranial CT abnormality. Reading Location: [facility] CC: Dr. Jose De Jesus Harrington MD; Eric Mock DO Social Psychologist: Signed Normal [facility] CBC W/Diff, Automatedon Absolute Lymph 2.41 X10 3/uL Normal 0.83-4.51 [facility] Comment on above: Performed By: #### L 500.2500, L100.0100, L300.3900, L501.5200 #### [facility] [address] [place], [address] Absolute Neut 4.4 X10 3/uL Normal 2.0-7.7 [facility] Comment on above: Performed By: #### L 500.2500, L100.0100, L300.3900, L501.5200 #### [facility] [address] [place], [address] Basophils/100 WBC (Bld) 0.5 % Normal 0-1 [facility] Comment on above: Performed By: #### L 500.2500, L100.0100, L300.3900, L501.5200 #### [facility] [address] [place], [address] Eosinophils/100 WBC (Bld) 2.8 % Normal 0-5 [facility] Comment on above: Performed By: #### L 500.2500, L100.0100, L300.3900, L501.5200 #### [facility] [address] [place], [address] Erythrocyte distribution width (RBC) [Ratio] 14.1 % Normal 11.6-14.6 [facility] Comment on above: Performed By: #### L 500.2500, L100.0100, L300.3900, L501.5200 #### [facility] [address] [place], [address] Hematocrit (Bld) [Volume fraction] 40.4 % Normal 37-47 [facility] Comment on above: Performed By: #### L 500.2500, L100.0100, L300.3900, L501.5200 #### [facility] [address] [place], [address] Hemoglobin (Bld) [Mass/Vol] 12.7 g/dL Normal 12.0-15.0 [facility] Comment on above: Performed By: #### L 500.2500, L100.0100, L300.3900, L501.5200 #### [facility] [address] [place], [address] IG% 0.300 Normal 0.0-0.9 [facility] Comment on above: Result Comment: IG% - Immature Granulocytes (promyelocytes, myelocytes and metamyelocytes) > 1% indicates that a LEFT SHIFT is Present. Performed By: #### L 500.2500, L100.0100, L300.3900, L501.5200 #### [facility] [address] [place], [address] Lymphocytes/100 WBC (Bld) 30.5 % Normal 19-41 [facility] Comment on above: Performed By: #### L 500.2500, L100.0100, L300.3900, L501.5200 #### [facility] [address] [place], [address] MCH (RBC) [Entitic mass] 27.5 pg Normal 27.0-32.0 [facility] Comment on above: Performed By: #### L 500.2500, L100.0100, L300.3900, L501.5200 #### [facility] [address] [place], [address] MCHC (RBC) [Mass/Vol] 31.4 g/dL Low 32-36 [facility] Comment on above: Performed By: #### L 500.2500, L100.0100, L300.3900, L501.5200 #### [facility] [address] [place], [address] MCV (RBC) [Entitic vol] 87.6 fL Normal 81-99 [facility] Comment on above: Performed By: #### L 500.2500, L100.0100, L300.3900, L501.5200 #### [facility] [address] [place], [address] Monocytes/100 WBC (Bld) 9.6 % Normal 0-10 [facility] Comment on above: Performed By: #### L 500.2500, L100.0100, L300.3900, L501.5200 #### [facility] [address] [place], [address] Neutrophils/100 WBC (Bld) 56.3 % Normal 47-70 [facility] Comment on above: Performed By: #### L 500.2500, L100.0100, L300.3900, L501.5200 #### [facility] [address] [place], [address] Nucleated RBC (Bld) [#/Vol] 0 10*3/uL Normal 0-5 [facility] Comment on above: Performed By: #### L 500.2500, L100.0100, L300.3900, L501.5200 #### [facility] [address] [place], [address] Platelet mean volume (Bld) [Entitic vol] 10.9 fL Normal 6.2-12.0 [facility] Comment on above: Performed By: #### L 500.2500, L100.0100, L300.3900, L501.5200 #### [facility] [address] [place], [address] Platelets (Bld) [#/Vol] 317 10*3/uL Normal 150-450 [facility] Comment on above: Performed By: #### L 500.2500, L100.0100, L300.3900, L501.5200 #### [facility] [address] [place], [address] RBC (Bld) [#/Vol] 4.61 10*6/uL Normal 4.2-5.4 [facility] Comment on above: Performed By: #### L 500.2500, L100.0100, L300.3900, L501.5200 #### [facility] [address] [place], [address] RDW SD 45.1 fl High 35.1-43.9 [facility] Comment on above: Performed By: #### L 500.2500, L100.0100, L300.3900, L501.5200 #### [facility] [address] [place], [address] WBC (Bld) [#/Vol] 7.9 10*3/uL Normal 4.4-11.[address] [facility] Comment on above: Performed By: #### L 500.2500, L100.0100, L300.3900, L501.5200 #### [facility] [address] [place], [address] Carbon dioxide, total [Moles /volume] in Central venous bloodOrdered By: Eric Mock on 09-05-2025 CO2 [Moles/Vol] 20.8 mmol/L Low 21.0-32.0 [facility] Chloride assayOrdered By: Lolis Mock on 09-05-2025 Chloride [Moles/Vol] 109 mmol/L High 98-108 [facility] Emergency Department Summary on 09-05-2025 Emergency Department Summary [facility] Medical Records Department [address] [place] [address] Emergency Department Summary 09/05/25 MR#: [id number] Acct: [id number] Name: YOBANI REID Rep #: [id number] : 1945 80 From: Eric Mock DO PCP: Dr. Jose De Jesus Harrington MD Status:DEP ER Location: ED HPI History of Present Illness Chief Complaint: Dizziness Informant: patient and family Narrative Narrative: Patient is a 80-year-old female with past medical history of hypertension hyperlipidemia diabetes and previous pulmonary embolism currently on Coumadin. She states she has a remote history of vertigo. She reports that she was over at a family ember's house this evening for dinner. After eating she got up to leave and felt dizzy. She describes the dizziness as a sense of motion. She states it comes on quickly with position change and causes nausea without vomiting. She reports that if she remains still the symptoms resolve. She states that there has been no recent trauma and she denies any chest pain or syncope associated with this. She states this feels similar nature to her vertigo but because of her chronic medical conditions she presents for evaluation [facility] Medical History Urinary tract infection Nocturia Urge incontinence Overactive bladder Obstructive sleep apnea Debility Wears glasses Post-menopausal Thyroid disease Diabetes Arthritis Bladder disease High cholesterol History of ulceration Former smoker Leg cramps History of echocardiogram History of stress test Cardiology follow-up encounter Hypertension Preop cardiovascular exam prison current use of anticoagulant RBBB (right bundle branch block) Hypothyroidism GERD (gastroesophageal reflux disease) History of pulmonary embolism ( 08/2017) Presence 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 (10/25/19) Atherosclerotic heart disease of [place] coronary artery without angina pectoris Mixed hyperlipidemia Essential hypertension Incisional hernia, without obstruction or gangrene History of gastric ulcer Obesity DM2 (diabetes mellitus, type 2) Pulmonary embolism (08/2017) Home Medications ???Medication ???Instructions ???Recorded ???Last Taken ???Type aspirin 81 mg chewable tablet 81 mg PO QHS hearth 05/10/1410/25 History levothyroxine 112 mcg tablet 112 mcg PO DAILY thyroid 05/10/14 10/25/19 History nitroglycerin 0.4 mg sublingual 0.4 mg sublingual Q5M PRN Chest Unknown History tablet Pain fenofibrate 160 mg tablet 160 mg PO DAILY cholesterol 10/25/19 History magnesium oxide 400 mg (241.3 mg 800 mg PO BID suppliment 10/27/19 Unknown History magnesium) tablet atenolol 25 mg tablet 25 mg PO DAILY blood pressure 07/01 Unknown History atorvastatin 40 mg tablet 40 mg PO QHS cholestorol 07/10/20 Unknown History hydrocortisone 2.5 % topical cream 1 applic topical BID PRN Itching 07/10/20 Unknown History isosorbide mononitrate 30 mg 30 mg PO DAILY heart #90 tabs 08/01 Unknown Rx tablet,extended release 24 hr fosinopril 40 mg tablet 40 mg PO BID this is a dose Unknown Rx increase #60 tabs warfarin 2.5 mg tablet 2.5 mg PO .TUTHSU 08/25/24 Unknown History warfarin 5 mg tablet 5 mg PO MOWEFRSA blood thinner Unknown History potassium chloride 20 mEq 20 meq PO QDAY #90 tabs 02/09/25 U nknown Rx tablet,extended release furosemide 40 mg tablet 40 mg PO Q OTHER DAY #90 tabs 01/29 08/25 Unknown Rx estradiol 0.01% (0.1 mg/gram) 1 g vaginal 3XW 08/04/25 Unknown H istory vaginal cream diazepam 2 mg tablet (Valium) 2 mg PO TID PRN Vertigo/dizziness 09/05/25 Unknown Rx 5 days #15 tabs ondansetron 4 mg disintegrating 4 mg PO TID PRN nausea and 5 Unknown Rx tablet vomiting #21 tabs Allergy/AdvReac Type Severity Reaction Status Date / Time adhesive Allergy Rash Verified 09/05/25 21:42 amoxicillin (Amoxicillin) Allergy Rash Verified 09/05/25 21:42 ampicillin Allergy Rash Verified 09/05/25 21:42 cephalexin monohydrate (From Allergy Rash Verified 09/05/25 21:42 Keflex) lactose (lactose intolerant) Allergy Abd Verified 09/05/25 21:42 cramps/diarrhea Penicillins Allergy Rash Verified 09/05/25 21:42 Sulfa (Sulfonamide Allergy Rash Verified 09/05/25 21:42 Antibiotics) Family History Father CAD (coronary artery disease) Mother CVA (cerebral vascular accident) Hypertension Surgical History History of cardiac catheterization History of appendectomy Presence of coronary angioplasty implant and graft ( 10/06/09) H/O hernia repair History of heart artery stent S/P cardiac catheterization S/P trigger (more content not included)... Normal [facility] Eosinophil percentageOrdered By: Eric Mock on 09-05-2025 Eosinophils/100 WBC (Bld) 2.8 % 0-5 [facility] Erythrocyte distribution wid th ratioOrdered By: Eric Mock on 09-05-2025 Erythrocyte distribution width (RBC) [Ratio] 14.1 % 11.6-14.6 [facility] Erythrocyte distribution wid th standard deviationOrdered By: Eric Mock on 09-05-2025 Erythrocyte distribution width (RBC) [Ratio] 45.1 fl High 35.1-43.9 [facility] Glomerular filtration rate ( GFR) estimation/1.73 sq m using serum, plasma, or whole bOrdered By: Eric Mock on 09-05-2025 GFR/1.73 sq M.predicted among non-blacks MDRD (S/P/Bld) [Vol rate/Area] 41 mL/min/{1.73_m2} Low >60 [facility] Comment on above: mL/min/1.73m2 CKD-EP I Creatinine Equation (2020) Hematocrit Auto (Bld) [Volum e fraction]Ordered By: Eric Mock on 09-05-2025 Hematocrit (Bld) [Volume fraction] 40.4 % 37-47 [facility] Hemoglobin measurementOrdere d By: Eric Mock on 09-05-2025 Hemoglobin (Bld) [Mass/Vol] 12.7 g/dL 12.0-15.0 [facility] Immature granulocytes/100 WB C Auto (Bld)Ordered By: Eric Mock on 09-05-2025 Immature granulocytes/100 WBC (Bld) 0.300 % 0.0-0.9 [facility] Comment on above: IG% - Immature Granu locytes (promyelocytes, myelocytes and metamyelocytes) > 1% indicates that a LEFT SHIFT is Present. International normalized rat io (INR) calculationOrdered By: Eric Mock on 09-05-2025 INR Coag (Bld) [Relative time] 2.3 {INR} [facility] MCV (mean corpuscular volume ) determinationOrdered By: Eric Mock on 09-05-2025 MCV (RBC) [Entitic vol] 87.6 fL 81-99 [facility] Magnesiumon 09-05-2025 Magnesium [Mass/Vol] 2.2 mg/dL Normal 1.5-2.2 [facility] Comment on above: Performed By: #### L 500.2500, L100.0100, L300.3900, L501.5200 #### [facility] [address] [place], [address] Magnesium measurement (mass/ volume)Ordered By: Eric Mock on 09-05-2025 Magnesium (Unsp spec) [Mass/Vol] 2.2 mg/dL 1.5-2.2 [facility] Mean corpuscular hemoglobin (MCH) determinationOrdered By: Eric Mock on 09-05-2025 MCH (RBC) [Entitic mass] 27.5 pg 27.0-32.0 [facility] Mean corpuscular hemoglobin concentration (MCHC) determinationOrdered By: Eric Mock on 09-05-2025 MCHC (RBC) [Mass/Vol] 31.4 g/dL Low 32-36 [facility] Mean platelet volume determi nationOrdered By: Eric Mock on 09-05-2025 Platelet mean volume (Bld) [Entitic vol] 10.9 fL 6.2-12.0 [facility] Monocyte percentageOrdered B y: Eric Mock on 09-05-2025 Monocytes/100 WBC (Bld) 9.6 % 0-10 [facility] Neutrophil percentageOrdered By: Eric Mock on 09-05-2025 Neutrophils/100 WBC (Bld) 56.3 % 47-70 [facility] Nucleated red blood cell per centageOrdered By: Eric Mock on 09-05-2025 Nucleated RBC/100 WBC (Bld) [Ratio] 0 % 0-5 [facility] Platelet countOrdered By: Lolis Mock on 09-05-2025 Platelets (Bld) [#/Vol] 317 10*3/uL 150-450 [facility] Potassium measurement (mass/ volume)Ordered By: Eric Mock on 09-05-2025 Potassium (Unsp spec) [Mass/Vol] 4.2 mmol/L 3.3-5.1 [facility] Prothrombin Time w/INRon INR Coag (PPP) [Relative time] 2.3 {INR} Normal [facility] Comment on above: Performed By: #### L 500.2500, L100.0100, L300.3900, L501.5200 #### [facility] [address] [place], [address] PT Coag (PPP) [Time] 25.3 s High 11.7-14.9 [facility] Comment on above: Performed By: #### L 500.2500, L100.0100, L300.3900, L501.5200 #### [facility] [address] [place], [address] Prothrombin timeOrdered By: Eric Mock on 09-05-2025 PT Coag (PPP) [Time] 25.3 s High 11.7-14.9 [facility] RBC Auto (Bld) [#/Vol]Ordere d By: Eric Mock on 09-05-2025 RBC (Bld) [#/Vol] 4.61 10*6/uL 4.2-5.4 [facility] Serum creatinine measurement (mass/volume)Ordered By: Eric Mock on 09-05-2025 Creatinine [Mass/Vol] 1.32 mg/dL High 0.70-1.20 [facility] Serum glucose measurement (m ass/volume)Ordered By: Eric Mock on 09-05-2025 Glucose [Mass/Vol] 114 mg/dL High 70-[address] [facility] Serum or plasma calcium tiffanie urement (mass/volume)Ordered By: Eric Mock on 09-05-2025 Calcium [Mass/Vol] 9.9 mg/dL 7.6-11.[address] [facility] Serum or plasma urea nitroge n measurement (mass/volume)Ordered By: Eric Mock on 09-05-2025 Urea nitrogen [Mass/Vol] 21 mg/dL High 4-19 [facility] Sodium levelOrdered By: Gregg Mock on 09-05-2025 Sodium [Moles/Vol] 141 mmol/L 133-[address] [facility] White blood cell (WBC) count Ordered By: Eric Mock on 09-05-2025 WBC (Bld) [#/Vol] 7.9 10*3/uL 4.4-11.[address] [facility] MR/Keny 08-08-2025 MR/[facility] [address], [address] [place] [address] OFFICE VISIT Date of Service: 08/08/25 MR#: [id number] Acct: [id number] Name: YOBANI REID Rep #: [id number] : 1945 Provider: Dr. 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 Normal [facility] Cardiology Visit Reporton Cardiology Visit Report [facility] [address] [place], [place] [address] OFFICE VISIT Date of Service: 08/04/25 MR#: [id number] Acct: [id number] Name: YOBANI REID Rep #: [id number] : 1945 Provider: Dr. Augustin Moreira MD Age/Sex: 80/F [place] [facility] [place] Status: Signed HPI HPI History of [...] Cardiology follow-up encounter Hypertension Preop cardiovascular exam prison current use of anticoagulant RBBB (right bundle branch block) Hypothyroidism GERD (gastroesophageal reflux disease) History of pulmonary embolism ( 08/2017) Presence 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 (10/25/19) Atherosclerotic heart disease of [place] coronary artery without angina pectoris Mixed hyperlipidemia [...] wine sub (more content not included)... Normal [facility] Anion gap in Serum or Plasma Ordered By: Augustin Moreira on 07-27-2025 Anion gap [Moles/Vol] 10 mmol/L 5-15 [facility] BUN/creatinine ratioOrdered By: Augustin Moreira on 07-27-2025 Urea nitrogen/Creatinine [Mass ratio] 18.7 mg/mg 10-20 [facility] Bilirubin, totalOrdered By: Augustin Moreira on 07-27-2025 Bilirubin [Mass/Vol] 0.67 mg/dL 0.00-1.30 [facility] Calculated very low density lipoprotein (VLDL) cholesterol measurementOrdered By: Augustin Moreira on 07-27-2025 Calculated very low density lipoprotein (VLDL) cholesterol measurement 16 mg/dL 5-40 [facility] Carbon dioxide, total [Moles /volume] in Central venous bloodOrdered By: Augustin Moreira on 07-27-2025 CO2 [Moles/Vol] 23.8 mmol/L 21.0-32.0 [facility] Chloride assayOrdered By: Jame Moreira on 07-27-2025 Chloride [Moles/Vol] 106 mmol/L 98-108 [facility] Comprehensive Metabolic Prof ilon 07-27-2025 Albumin [Mass/Vol] 4.2 g/dL Normal 3.4-4.[address] [facility] Comment on above: Performed By: #### L 500.4050, L500.4100 #### [facility] [address] [place], [address] Albumin/Globulin [Mass ratio] 1.2 {ratio} Normal 0.9-2.4 [facility] Comment on above: Performed By: #### L 500.4050, L500.4100 #### [facility] [address] [place], [address] ALK PHOS 50 U/L Normal 35-104 [facility] Comment on above: Performed By: #### L 500.4050, L500.4100 #### [facility] [address] [place], [address] ALT [Catalytic activity/Vol] 17 U/L Normal <=34 [facility] Comment on above: Performed By: #### L 500.4050, L500.4100 #### [facility] [address] [place], [address] AST [Catalytic activity/Vol] 21 U/L Normal <=31 [facility] Comment on above: Performed By: #### L 500.4050, L500.4100 #### [facility] [address] [place], [address] Bilirubin [Mass/Vol] 0.67 mg/dL Normal 0.00-1.30 [facility] Comment on above: Performed By: #### L 500.4050, L500.4100 #### [facility] [address] [place], [address] BUN/CRE 18.7 RATIO Normal 10-20 [facility] Comment on above: Performed By: #### L 500.4050, L500.4100 #### [facility] [address] [place], [address] Calcium [Mass/Vol] 10.4 mg/dL Normal 7.6-11.[address] [facility] Comment on above: Performed By: #### L 500.4050, L500.4100 #### [facility] [address] [place], [address] Chloride [Moles/Vol] 106 mmol/L Normal 98-108 [facility] Comment on above: Performed By: #### L 500.4050, L500.4100 #### [facility] [address] [place], [address] CO2 [Moles/Vol] 23.8 mmol/L Normal 21.0-32.0 [facility] Comment on above: Performed By: #### L 500.4050, L500.4100 #### [facility] [address] [place], [address] Creatinine [Mass/Vol] 1.19 mg/dL Normal 0.70-1.20 [facility] Comment on above: Performed By: #### L 500.4050, L500.4100 #### [facility] [address] [place], [address] GAP 10 Normal 5-15 [facility] Comment on above: Performed By: #### L 500.4050, L500.4100 #### [facility] [address] [place], [address] GFR/1.73 sq M.predicted among non-blacks MDRD (S/P/Bld) [Vol rate/Area] 47 mL/min/{1.73_m2} Low >60 [facility] Comment on above: Result Comment: mL/m in/1.73m2 CKD-EPI Creatinine Equation (2020) Performed By: #### L 500.4050, L500.4100 #### [facility] [address] [place], [address] Globulin (S) [Mass/Vol] 3.5 g/dL Normal 2.2-4.2 [facility] Comment on above: Performed By: #### L 500.4050, L500.4100 #### [facility] [address] [place], [address] Glucose [Mass/Vol] 111 mg/dL High 70-[address] [facility] Comment on above: Performed By: #### L 500.4050, L500.4100 #### [facility] [address] [place], [address] Potassium [Moles/Vol] 4.8 mmol/L Normal 3.3-5.1 [facility] Comment on above: Performed By: #### L 500.4050, L500.4100 #### [facility] [address] [place], [address] Sodium [Moles/Vol] 140 mmol/L Normal 133-[address] [facility] Comment on above: Performed By: #### L 500.4050, L500.4100 #### [facility] [address] [place], [address] T PROT 7.7 g/dL Normal 5.9-8.4 [facility] Comment on above: Performed By: #### L 500.4050, L500.4100 #### [facility] [address] [place], [address] Urea nitrogen [Mass/Vol] 22 mg/dL High 4-19 [facility] Comment on above: Performed By: #### L 500.4050, L500.4100 #### [facility] [address] [place], [address] Glomerular filtration rate ( GFR) estimation/1.73 sq m using serum, plasma, or whole bOrdered By: Augustin Moreira on 07-27-2025 GFR/1.73 sq M.predicted among non-blacks MDRD (S/P/Bld) [Vol rate/Area] 47 mL/min/{1.73_m2} Low >60 [facility] Comment on above: mL/min/1.73m2 CKD-EP I Creatinine Equation (2020) LDL calc ser/plasOrdered By: Augustin Moreira on 07-27-2025 Cholesterol in LDL [Mass/Vol] 86 mg/dL [facility] Comment on above: Fqmfipfysu=752-274 m g/dL & Higher Icor=309 mg/dL or greaterFriedwald Equation for LDL-C Laboratory - Chemistry and C hemistry - challengeOrdered By: Augustin Moreira on 07-27-2025 AST [Catalytic activity/Vol] 21 U/L <32 [facility] Lipid Profileon 07-27-2025 CHOL:HDL 2.79 Normal [facility] Comment on above: Performed By: #### L 500.4050, L500.4100 #### [facility] [address] [place], [address] Cholesterol [Mass/Vol] 159 mg/dL Normal <=200 [facility] Comment on above: Result Comment: Chol esterol level, Desirable <200 mg/dL Borderline high cholesterol 200-239 mg/dL High cholesterol >=240 mg/dL Recommendations of the NCEP Adult Treatment Panel for the following risk-cutoff thresholds for the [place] population. Performed By: #### L 500.4050, L500.4100 #### [facility] [address] [place], [address] Cholesterol in HDL [Mass/Vol] 57 mg/dL Normal [facility] Comment on above: Result Comment: Sandra onal Cholesterol Education Program (NCEP) guidelines: <40 mg/dL: Low HDL-cholesterol (major risk factor for CHD) >= 60 mg/dL: High HDL-cholesterol (negative risk factor for CHD) HDL-cholesterol is affected by a number of factors, e.g. smoking, exercise, hormones, sex and age. Performed By: #### L 500.4050, L500.4100 #### [facility] [address] [place], [address] Cholesterol in LDL [Mass/Vol] 86 mg/dL Normal [facility] Comment on above: Result Comment: Bord tfphzx=098-595 mg/dL Higher Vime=452 mg/dL or greater Friedwald Equation for LDL-C Performed By: #### L 500.4050, L500.4100 #### [facility] [address] [place], [address] Cholesterol in VLDL [Mass/Vol] 16 mg/dL Normal 5-40 [facility] Comment on above: Performed By: #### L 500.4050, L500.4100 #### [facility] [address] [place], [address] Triglyceride [Mass/Vol] 78 mg/dL Normal [facility] Comment on above: Result Comment: The drugs N-Acetylcysteine and Metamizole may falsely depress this assay. Normal range: <150 mg/dL Borderline High: 150-199 mg/dL High: 200-499 mg/dL Very High: >500 mg/dL Performed By: #### L 500.4050, L500.4100 #### [facility] [place], [address] Potassium measurement (mass/ volume)Ordered By: Augustin Moreira on 07-27-2025 Potassium (Unsp spec) [Mass/Vol] 4.8 mmol/L 3.3-5.1 [facility] Screening total cholesterol/ high density lipoprotein (HDL) cholesterol ratioOrdered By: Augustin Moreira on 07-27-2025 Cholesterol.total/Cho lesterol in HDL [Mass ratio] 2.79 {ratio} [facility] Serum creatinine measurement (mass/volume)Ordered By: Augustin Moreira on 07-27-2025 Creatinine [Mass/Vol] 1.19 mg/dL 0.70-1.20 [facility] Serum globulin measurementOr dered By: Augustin Moreira on 07-27-2025 Globulin (S) [Mass/Vol] 3.5 g/dL 2.2-4.2 [facility] Serum glucose measurement (m ass/volume)Ordered By: Augustin Moreira on 07-27-2025 Glucose [Mass/Vol] 111 mg/dL High 70-[address] [facility] Serum or plasma alanine carrizales otransferase (ALT) measurementOrdered By: Augustin Moreira on 07-27-2025 ALT [Catalytic activity/Vol] 17 U/L <35 [facility] Serum or plasma albumin tiffanie urement (mass/volume)Ordered By: Augustin Moreira on 07-27-2025 Albumin [Mass/Vol] 4.2 g/dL 3.4-4.[address] [facility] Serum or plasma albumin/glob ulin mass ratioOrdered By: Augustin Moreira on 07-27-2025 Albumin/Globulin [Mass ratio] 1.2 {ratio} 0.9-2.4 [facility] Serum or plasma alkaline eligio sphatase measurementOrdered By: Augustin Moreira on 07-27-2025 ALP [Catalytic activity/Vol] 50 U/L 35-104 [facility] Serum or plasma calcium tiffanie urement (mass/volume)Ordered By: Augustin Moreira on 07-27-2025 Calcium [Mass/Vol] 10.4 mg/dL 7.6-11.[address] [facility] Serum or plasma cholesterol in HDL measurement (mass/volume)Ordered By: Augustin Moreira on 07-27-2025 Cholesterol in HDL [Mass/Vol] 57 mg/dL >40 [facility] Comment on above: National Cholesterol Education Program (NCEP) guidelines:<40 mg/dL: Low HDL-cholesterol (major risk factor for CHD)>= 60 mg/dL: High HDL-cholesterol (negative risk factor for CHD)HDL-cholesterol is affected by a number of factors, e.g. smoking, exercise, hormones, sex and age. Serum or plasma cholesterol measurement (mass/volume)Ordered By: Augustin Moreira on 07-27-2025 Cholesterol [Mass/Vol] 159 mg/dL <201 [facility] Comment on above: Cholesterol level, D esirable <200 mg/dLBorderline high cholesterol 200-239 mg/dLHigh cholesterol >=240 mg/dLRecommendations of the NCEP Adult Treatment Panel for the following risk-cutoff thresholds for the [place] population. Serum or plasma urea nitroge n measurement (mass/volume)Ordered By: Augustin Moreira on 07-27-2025 Urea nitrogen [Mass/Vol] 22 mg/dL High 4-19 [facility] Sodium levelOrdered By: Zafar Moreira on 07-27-2025 Sodium [Moles/Vol] 140 mmol/L 133-[address] [facility] Total proteinOrdered By: Alejandra Moreira on 07-27-2025 Protein [Mass/Vol] 7.7 g/dL 5.9-8.[address] [facility] Triglycerides measurementOrd ered By: Augustin Moreira on 07-27-2025 Triglyceride [Mass/Vol] 78 mg/dL <199 [facility] Comment on above: The drugs N-Acetylcy steine and Metamizole may falsely depress this assay. Normal range: <150 mg/dLBorderline High: 150-199 mg/dLHigh: 200-499 mg/dLVery High: >500 mg/dL /Keny 07-26-2025 /[facility] [address], [address] [place] [address] OFFICE VISIT Date of Service: 07/26/25 MR#: [id number] Acct: [id number] Name: YOBANI REID Rep #: [id number] : 1945 Provider: Dr. 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 Normal [facility] - Chemistry and C hemistry - challengeOrdered By: Juana Peters on 07-12-2025 Bilirubin Ql (U) Negative [facility] Glucose Ql (U) Negative [facility] Ketones Ql (U) Negative [facility] pH (U) 6 [pH] [facility] Specific gravity (U) [Rel density] 1.010 [facility] Urobilinogen (U) [Mass/Vol] Negative [facility] - Hematology and Cell countsOrdered By: Juana Peters on 07-12-2025 Hemoglobin Ql (U) Negative [facility] - UrinalysisOrder ed By: Juana Peters on 07-12-2025 Nitrite Ql (U) Positive [facility] Protein Ql (U) Negative [facility] MR/BMSLuis 07-12-2025 /[facility] [address], [address] [place] [address] OFFICE VISIT Date of Service: 07/12/25 MR#: [id number] Acct: [id number] Name: YOBANI REID Rep #: [id number] : 1945 Provider: Dr. 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 Operator Required: No Accompanied by: Self Is patient [...] No Nurse's Note: bladder scan PVR 25cc PFSH Medical History Urinary tract infection Nocturia Urge incontinence Overactive bladder Obstructive sleep apnea Debility Wears glasses Post-menopausal Thyroid disease Diabetes Arthritis Bladder disease High cholesterol History of ulceration Former smoker Leg cramps History of echocardiogram History of stress test Cardiology follow-up encounter Hypertension 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 Normal [facility] No Panel InformationOrdered By: Juana Peters on 07-12-2025 Urine Leukocytes Positive [facility] Urine Non-Hemolyzed Blood Negative [facility] 25([place])D3 [facility] 25-hydroxyvitamin D3 [Mass/Vol] 32.0 ng/mL Normal 31.0-80.0 [facility] Comment on above: Order Comment: Speci men Type: BLOOD SPECIMENOrdering Facility: [facility] Address: [address] [place] [address] Performed By: #### 1 989-3 ####[facility] LABCLIA [id number] [place] [address] [place] ALBUMIN/CREATININE RATIO, UR INEon 04-19-2025 Albumin DL <= 20 mg/L (U) [Mass/Vol] mg/dL Normal [facility] Comment on above: Order Comment: Speci men Type: URINE SPECIMENOrdering Facility: [facility] Address: [address] [place] [address] Performed By: #### U ACR ####[facility] LABCLIA [id number] [place] [address] [place] Albumin/Creatinine (U) [Mass ratio] <19 Normal <30 [facility] Comment on above: Order Comment: Speci men Type: URINE SPECIMENOrdering Facility: [facility] Address: [address] [place] [address] Result Comment: Adul t Male and Female Nephrotic Criteria: <30 mg/g is considered normal to mildly increased 30-300 mg/g is considered moderately increased >300 mg/g is considered severely increased KDIGO. (2013). KDIGO 2012 Clinical Practice Guideline for the Evaluation and Management of Chronic Kidney Disease. Official Journal of the International Society of Nephrology, 3(1), 1-150. Performed By: #### U ACR ####[facility] LABCLIA [id number] [place] [address] [place] Creatinine (U) [Mass/Vol] 61.8 mg/dL Normal 20.0-300.0 [facility] Comment on above: Order Comment: Speci men Type: URINE SPECIMENOrdering Facility: [facility] Address: [address] [place] [address] Performed By: #### U ACR ####[facility] LABCLIA [id number] [place] [address] [place] CBC W Auto Differential pane l (Bld)on 04-19-2025 Basophils (Bld) [#/Vol] 0.06 10*3/uL Normal <0.11 [facility] Comment on above: Order Comment: Speci men Type: BLOOD SPECIMENOrdering Facility: [facility] Address: [address] [place] [address] Performed By: #### 5 7021-8 ####[facility] LABCLIA [id number] [place] [address] [place] Basophils/100 WBC (Bld) 0.8 % Normal [facility] Comment on above: Order Comment: Speci men Type: BLOOD SPECIMENOrdering Facility: [facility] Address: [address] [place] [address] Performed By: #### 5 7021-8 ####[facility] LABCLIA [id number] [address], [place] [address] [place] Differential cell count method Nom (Bld) Auto Normal [facility] Comment on above: Order Comment: Speci men Type: BLOOD SPECIMENOrdering Facility: [facility] Address: [address] [place] [address] Performed By: #### 5 7021-8 ####[facility] LABCLIA [id number] [address], [place] [address] [place] Eosinophils (Bld) [#/Vol] 0.25 10*3/uL Normal <0.46 [facility] Comment on above: Order Comment: Speci men Type: BLOOD SPECIMENOrdering Facility: [facility] Address: [address] [place] [address] Performed By: #### 5 7021-8 ####[facility] LABCLIA [id number] [place] [address] [place] Eosinophils/100 WBC (Bld) 3.3 % Normal [facility] Comment on above: Order Comment: Speci men Type: BLOOD SPECIMENOrdering Facility: [facility] Address: [address] [place] [address] Performed By: #### 5 7021-8 ####[facility] LABCLIA [id number] [place] [address] [place] Erythrocyte distribution width (RBC) [Ratio] 13.8 % Normal 11.5-15.0 [facility] Comment on above: Order Comment: Speci men Type: BLOOD SPECIMENOrdering Facility: [facility] Address: [address] [place] [address] Performed By: #### 5 7021-8 ####[facility] LABCLIA [id number] [place] [address] [place] Hematocrit (Bld) [Volume fraction] 41.7 % Normal 36.0-46.0 [facility] Comment on above: Order Comment: Speci men Type: BLOOD SPECIMENOrdering Facility: [facility] Address: [address] [place] [address] Performed By: #### 5 7021-8 ####[facility] LABIA [id number] [place] [address] [place] Hemoglobin (Bld) [Mass/Vol] 13.1 g/dL Normal 11.5-15.5 [facility] Comment on above: Order Comment: Speci men Type: BLOOD SPECIMENOrdering Facility: [facility] Address: [address] [place] [address] Performed By: #### 5 7021-8 ####[facility] LABIA [id number] [place] [address] [place] Immature granulocytes (Bld) [#/Vol] 0.03 10*3/uL Normal <0.10 [facility] Comment on above: Order Comment: Speci men Type: BLOOD SPECIMENOrdering Facility: [facility] Address: [address] [place] [address] Performed By: #### 5 7021-8 ####[facility] LABIA [id number] [place] [address] [place] Immature granulocytes/100 WBC (Bld) 0.4 % Normal [facility] Comment on above: Order Comment: Speci men Type: BLOOD SPECIMENOrdering Facility: [facility] Address: [address] [place] [address] Performed By: #### 5 7021-8 ####[facility] LABIA [id number] [place] [address] [place] Lymphocytes (Bld) [#/Vol] 1.76 10*3/uL Normal 1.00-4.00 [facility] Comment on above: Order Comment: Speci men Type: BLOOD SPECIMENOrdering Facility: [facility] Address: [address] [place] [address] Performed By: #### 5 7021-8 ####[facility] LABCLIA [id number] [place] [address] [place] Lymphocytes/100 WBC (Bld) 23.5 % Normal [facility] Comment on above: Order Comment: Speci men Type: BLOOD SPECIMENOrdering Facility: [facility] Address: [address] [place] [address] Performed By: #### 5 7021-8 ####[facility] LABIA [id number] [place] [address] [place] MCH (RBC) [Entitic mass] 28.0 pg Normal 26.0-34.0 [facility] Comment on above: Order Comment: Speci men Type: BLOOD SPECIMENOrdering Facility: [facility] Address: [address] [place] [address] Performed By: #### 5 7021-8 ####[facility] LABIA [id number] [place] [address] [place] MCHC (RBC) [Mass/Vol] 31.4 g/dL Normal 30.5-36.0 [facility] Comment on above: Order Comment: Speci men Type: BLOOD SPECIMENOrdering Facility: [facility] Address: [address] [place] [address] Performed By: #### 5 7021-8 ####[facility] LABIA [id number] [place] [address] [place] MCV (RBC) [Entitic vol] 89.1 fL Normal 80.0-100.0 [facility] Comment on above: Order Comment: Speci men Type: BLOOD SPECIMENOrdering Facility: [facility] Address: [address] [place] [address] Performed By: #### 5 7021-8 ####[facility] LABIA [id number] [place] [address] [place] Monocytes (Bld) [#/Vol] 0.71 10*3/uL Normal <0.87 [facility] Comment on above: Order Comment: Speci men Type: BLOOD SPECIMENOrdering Facility: [facility] Address: [address] [place] [address] Performed By: #### 5 7021-8 ####[facility] LABCLIA [id number] [address] [address] [place] Monocytes/100 WBC (Bld) 9.5 % Normal [facility] Comment on above: Order Comment: Speci men Type: BLOOD SPECIMENOrdering Facility: [facility] Address: [address] [place] [address] Performed By: #### 5 7021-8 ####[facility] LABCLIA [id number] [address], [facility]95 [place] Neutrophils (Bld) [#/Vol] 4.69 10*3/uL Normal 1.45-7.50 [facility] Comment on above: Order Comment: Speci men Type: BLOOD SPECIMENOrdering Facility: [facility] Address: [address] [place] [address] Performed By: #### 5 7021-8 ####[facility] LABCLIA [id number] [place] [id number] [place] Neutrophils/100 WBC (Bld) 62.5 % Normal [facility] Comment on above: Order Comment: Speci men Type: BLOOD SPECIMENOrdering Facility: [facility] Address: [address] [place] [address] Performed By: #### 5 7021-8 ####[facility] LABCLIA [id number] [address] [address] [place] Nucleated RBC (Bld) [#/Vol] 10*3/uL Normal <0.01 [facility] Comment on above: Order Comment: Speci men Type: BLOOD SPECIMENOrdering Facility: [facility] Address: [address] [place] [address] Performed By: #### 5 7021-8 ####[facility] LABCLIA [id number] [address] [place] [address] [place] Nucleated RBC/100 WBC (Bld) [Ratio] 0.0 /100 WBC Normal [facility] Comment on above: Order Comment: Speci men Type: BLOOD SPECIMENOrdering Facility: [facility] Address: [address] [place] [address] Performed By: #### 5 7021-8 ####[facility] LABIA [id number] [address], [place] [address] [place] Platelet mean volume (Bld) [Entitic vol] 11.7 fL Normal 9.0-12.7 [facility] Comment on above: Order Comment: Speci men Type: BLOOD SPECIMENOrdering Facility: [facility] Address: [address] [place] [address] Performed By: #### 5 7021-8 ####[facility] LABIA [id number] [place] [address] [place] Platelets (Bld) [#/Vol] 315 10*3/uL Normal 150-400 [facility] Comment on above: Order Comment: Speci men Type: BLOOD SPECIMENOrdering Facility: [facility] Address: [address] [place] [address] Performed By: #### 5 7021-8 ####[facility] LABIA [id number] [place] [address] [place] RBC (Bld) [#/Vol] 4.68 10*6/uL Normal 3.90-5.20 [facility] Comment on above: Order Comment: Speci men Type: BLOOD SPECIMENOrdering Facility: [facility] Address: [address] [place] [address] Performed By: #### 5 7021-8 ####[facility] LABIA [id number] [place] [address] [place] WBC (Bld) [#/Vol] 7.50 10*3/uL Normal 3.70-11.00 [facility] Comment on above: Order Comment: Speci men Type: BLOOD SPECIMENOrdering Facility: [facility] Address: [address] [place] [address] Performed By: #### 5 7021-8 ####[facility] LABCLIA [id number] [address] [address] [place] CNOVon 04-19-2025 CNOV Office Visit (INTMWS ) YOBANI REID ([id number]) 1945 F Date Time Provider Department 04/19/25 8:40 AM OLIMPIA GOEMZ INTMWS During your visit today, we recorded the following information about you: Pulse Blood pressure Weight 54/minute 128/60 112.1 kg Olimpia Gomez APRN.INSPECTOR AND MENDER 04/19/2025 9:01 AM Signed SUBJECTIVE Yobani Jeffrey Jeanette is a 79 year old female here [...] under the care of Dr. Moreira at [facility] and is currently taking potassium [...] participating in a stretch class at the [facility] twice a week, which she believes has improved her balance and flexibility. She has also been working on weight loss and has lost 3 pounds, though she notes hitting a plateau. She has a living will and power of manager trust in place. Her medications were reviewed today [...] mg daily x 5 days and 2.5mg Tu and Th) meclizine (ANTIVERT) 25 mg tab Take 1 [...] 3a Chronic Kidney Disease (Hcc) - 04/16/2021 prison current (more content not included)... Normal [facility] Comprehensive metabolic 2000 panelon 04-19-2025 Albumin [Mass/Vol] 4.1 g/dL Normal 3.9-4.9 [facility] Comment on above: Order Comment: Speci men Type: BLOOD SPECIMENOrdering Facility: [facility] Address: [address] [place] [address] Performed By: #### 2 4323-8, 3016-3, LIPNF, 06437-7 ####[facility] LABCLIA [id number] [address] [address] [address] [place] ALP [Catalytic activity/Vol] 52 U/L Normal 34-123 [facility] Comment on above: Order Comment: Speci men Type: BLOOD SPECIMENOrdering Facility: [facility] Address: [address] [place] [address] Performed By: #### 2 4323-8, 3016-3, LIPNF, 01646-4 ####[facility] LABCLIA [id number] [place] [address] [place] ALT [Catalytic activity/Vol] 13 U/L Normal 7-38 [facility] Comment on above: Order Comment: Speci men Type: BLOOD SPECIMENOrdering Facility: [facility] Address: [address] [place] [address] Performed By: #### 2 4323-8, 3016-3, LIPNF, ####[facility] LABCLIA [id number] [place] [address] [place] Anion gap [Moles/Vol] 8 mmol/L Normal 8-15 [facility] Comment on above: Order Comment: Speci men Type: BLOOD SPECIMENOrdering Facility: [facility] Address: [address] [place] [address] Performed By: #### 2 4323-8, 3016-3, LIPNF, ####[facility] LABCLIA [id number] [place] [address] [place] AST [Catalytic activity/Vol] 21 U/L Normal 13-35 [facility] Comment on above: Order Comment: Speci men Type: BLOOD SPECIMENOrdering Facility: [facility] Address: [address] [place] [address] Performed By: #### 2 4323-8, 3016-3, LIPNF, ####[facility] LABCLIA [id number] [address], [facility]95 [place] Bilirubin [Mass/Vol] 0.6 mg/dL Normal 0.2-1.3 [facility] Comment on above: Order Comment: Speci men Type: BLOOD SPECIMENOrdering Facility: [facility] Address: [address] [place] [address] Performed By: #### 2 4323-8, 3016-3, LIPNF, ####[facility] LABCLIA [id number] [place] [id number] [place] Calcium [Mass/Vol] 10.4 mg/dL High 8.5-10.2 [facility] Comment on above: Order Comment: Speci men Type: BLOOD SPECIMENOrdering Facility: [facility] Address: [address] [place] [address] Performed By: #### 2 4323-8, 3015-3, LIPNF, ####[facility] LABCLIA [id number] [place] [address] [place] Chloride [Moles/Vol] 105 mmol/L Normal 98-107 [facility] Comment on above: Order Comment: Speci men Type: BLOOD SPECIMENOrdering Facility: [facility] Address: [address] [place] [address] Performed By: #### 2 4323-8, 3015-3, LIPNF, ####[facility] LABCLIA [id number] [place] [id number] [place] CO2 [Moles/Vol] 27 mmol/L Normal 22-30 [facility] Comment on above: Order Comment: Speci men Type: BLOOD SPECIMENOrdering Facility: [facility] Address: [address] [place] [address] Performed By: #### 2 4323-8, 3015-3, LIPNF, ####[facility] LABCLIA [id number] [address] [address] [place] Creatinine [Mass/Vol] 1.40 mg/dL High 0.58-0.96 [facility] Comment on above: Order Comment: Unique bowen Type: BLOOD SPECIMENOrdering Facility: [facility] Address: [address] [place] [address] Performed By: #### 2 4323-8, 3016-3, KYLE, ####[facility] LABCLIA [id number] [place] [address] [place] Creatinine and Glomerular filtration rate.predicted panel (S/P/Bld) 39 mL/min/1.73m??? Low >=60 [facility] Comment on above: Order Comment: Unique bowen Type: BLOOD SPECIMENOrdering Facility: [facility] Address: [address] [place] [address] Result Comment: Brenda mated Glomerular Filtration Rate [...] actual GFR. Performed By: #### 2 4323-8, 3016-3, KYLE, ####[facility] LABCLIA [id number] [place] [id number] [place] Glucose [Mass/Vol] 87 mg/dL Normal 74-99 [facility] Comment on above: Order Comment: Unique bowen Type: BLOOD SPECIMENOrdering Facility: [facility] Address: [address] [place] [address] Result Comment: The [place] Diabetes Association (ADA) provides guidance for cutoff [...] Standards of Medical Care in Diabetes 2016, [place] Diabetes Association. Diabetes Care. 2016.39(Suppl 1). Performed By: #### 2 4323-8, 3016-3, LIPNF, ####[facility] LABCLIA [id number] [facility] ERSavtira Corporation [address] [address] [place] Potassium [Moles/Vol] 5.3 mmol/L High 3.7-5.1 [facility] Comment on above: Order Comment: Speci men Type: BLOOD SPECIMENOrdering Facility: [facility] Address: [address] [place] [address] Performed By: #### 2 4323-8, 6-3, LIPBING, ####[facility] LABCLIA [id number] [address] [address] [place] Protein [Mass/Vol] 7.2 g/dL Normal 6.3-8.0 [facility] Comment on above: Order Comment: Speci men Type: BLOOD SPECIMENOrdering Facility: [facility] Address: [address] [place] [address] Performed By: #### 2 4323-8, 3015-3, LIPBING, ####[facility] LABCLIA [id number] [address] [address] [place] Sodium [Moles/Vol] 140 mmol/L Normal 136-144 [facility] Comment on above: Order Comment: Speci men Type: BLOOD SPECIMENOrdering Facility: [facility] Address: [address] [place] [address] Performed By: #### 2 4323-8, 3015-3, LIPNF, ####[facility] LABCLIA [id number] [address] [address] [place] Urea nitrogen [Mass/Vol] 23 mg/dL High 7-21 [facility] Comment on above: Order Comment: Unique bowen Type: BLOOD SPECIMENOrdering Facility: [facility] Address: [address] [place] [address] Performed By: #### 2 4323-8, 3016-3, LIPNF, 17315-1 ####[facility] LABCLIA [id number] [facility] [id number], [place] [address] [place] HbA1c (Bld)on 04-19-2025 Average glucose Estimated from glycated hemoglobin (Bld) [Mass/Vol] 128 mg/dL Normal [facility] Comment on above: Order Comment: Unique bowen Type: BLOOD SPECIMENOrdering Facility: [facility] Address: [address] [place] [address] Result Comment: eAG: (Estimated average glucose) is a calculated value from HgbA1c and is telemarketing representative of the average blood glucose level in the last 2-3 month period. Performed By: #### 5 5454-3 ####[facility] LABCLIA [id number] [facility] [address] [place] [address] [place] HbA1c (Bld) [Mass fraction] 6.1 % High 4.3-5.6 [facility] Comment on above: Order Comment: Unique bowen Type: BLOOD SPECIMENOrdering Facility: [facility] Address: [address] [place] [address] Result Comment: [place] Diabetes Association guidelines indicate that patients with HgbA1c in the range 5.7-6.4% are at increased risk for development of diabetes, and intervention by lifestyle modification may be beneficial. HgbA1c greater or equal to 6.5% is considered diagnostic of diabetes. Performed By: #### 5 5454-3 ####[facility] LABCLIA [id number] [facility] [id number] [place] [address] [place] LIPID PANEL, NONFASTINGon Cholesterol [Mass/Vol] 170 mg/dL Normal <200 [facility] Comment on above: Order Comment: Unique bowen Type: BLOOD SPECIMENOrdering Facility: [facility] Address: [address] [place] [address] Result Comment: <200 mg/dL, Desirable 200-239 mg/dL, Borderline high >239 mg/dL, High Performed By: #### 2 4323-8, 3016-3, LIPNF, ####[facility] LABCLIA [id number] [place] [address] [place] HDL CHOLESTEROL, NF 46 mg/dL Normal >39 [facility] Comment on above: Order Comment: Speci men Type: BLOOD SPECIMENOrdering Facility: [facility] Address: [address] [place] [address] Result Comment: 40-5 9 mg/dL, Acceptable >59 mg/dL, High: Negative risk factor for coronary heart disease <40 mg/dL, Low: Positive risk factor for coronary heart disease Performed By: #### 2 4323-8, 3016-3, LIPNF, ####[facility] LABCLIA [id number] [address] OF [facility] LDL CHOLESTEROL CALCULATED, NF 106 mg/dL High <100 [facility] Comment on above: Order Comment: Speci men Type: BLOOD SPECIMENOrdering Facility: [facility] Address: [address] [place] [address] Result Comment: <100 mg/dL, Optimal 100-129 mg/dL, Near optimal/above optimal 130-159 mg/dL, Borderline high 160-189 mg/dL, High >189 mg/dL, Very high Secondary prevention optimal LDL Cholesterol levels are recommended to be <70 mg/dL LDL cholesterol is calculated using the Gallagher-NIH equation. Performed By: #### 2 4323-8, 3016-3, LIPNF, ####[facility] LABCLIA [id number] [address] [place] LDL/HDL RATIO, NF 2.30 mg/dL Normal <2.54 [facility] Comment on above: Order Comment: Speci men Type: BLOOD SPECIMENOrdering Facility: [facility] Address: [address] [place] [address] Result Comment: Eva newman: 1. National Cholesterol Education Program ATP III Guideline At-A-Glance Quick Desk Reference: National Heart, Lung, and Blood [place]. National Institutes of Health. 2001: NIH Publication No. 01-3305. 2. An International Atherosclerosis Society position paper: global recommendations for the management of dyslipidemia: executive summary, Atherosclerosis. 2014: 232(2):410-413. Performed By: #### 2 4323-8, 6-3, LIPNF, 04500-7 ####[facility] LABCLIA [id number] [address] [address] [place] NON HDL CHOL, NF 124 mg/dL Normal <130 [facility] Comment on above: Order Comment: Speci men Type: BLOOD SPECIMENOrdering Facility: [facility] Address: [address] [place] [address] Result Comment: <130 mg/dL, Optimal 130-159 mg/dL, Near optimal/above optimal 160-189 mg/dL, Borderline high 190-219 mg/dL, High >219 mg/dL, Very high Secondary prevention optimal non HDL Cholesterol levels are recommended to be <100 mg/dL Performed By: #### 2 4323-8, 6-3, LIPNF, ####[facility] LABCLIA [id number] [address] [address] [place] T CHOL/HDL RATIO NF 3.70 mg/dL Normal <5.10 [facility] Comment on above: Order Comment: Speci men Type: BLOOD SPECIMENOrdering Facility: [facility] Address: [address] [place] [address] Performed By: #### 2 4323-8, 3016-3, LIPNF, 11869-9 ####[facility] LABCLIA [id number] [place] [id number] [place] TRIGLYCERIDES, NF 100 mg/dL Normal <150 [facility] Comment on above: Order Comment: Speci men Type: BLOOD SPECIMENOrdering Facility: [facility] Address: [address] [place] [address] Result Comment: <150 mg/dL, Normal 150-199 mg/dL, Borderline high 200-499 mg/dL, High >499 mg/dL, Very high Performed By: #### 2 4323-8, 3016-3, LIPNF, ####[facility] LABCLIA [id number] [place] [address] [place] VLDL CHOLESTEROL, NF 17 mg/dL Normal <30 [facility] Comment on above: Order Comment: Speci men Type: BLOOD SPECIMENOrdering Facility: [facility] Address: [address] [place] [address] Performed By: #### 2 4323-8, 3016-3, LIPNF, ####[facility] LABCLIA [id number] [place] [address] [place] Magnesium SerPl-mCncon 04-19 Magnesium [Mass/Vol] 2.0 mg/dL Normal 1.7-2.3 [facility] Comment on above: Order Comment: Speci men Type: BLOOD SPECIMENOrdering Facility: [facility] Address: [address] [place] [address] Performed By: #### 2 4323-8, 6-3, LIPNF, ####[facility] LABCLIA [id number] [place] [address] [place] PTH-Intact SerPl-mCncon 05- Parathyrin.intact [Mass/Vol] 27 pg/mL Normal 15-65 [facility] Comment on above: Order Comment: Speci men Type: BLOOD SPECIMENOrdering Facility: [facility] Address: [address] [place] [address] Performed By: #### 2 731-8 ####[facility] LABCLIA [id number] [place] [address] [place] TSH SerPl-aCncon 04-19-2025 TSH Qn 1.850 m[IU]/L Normal 0.270-4.20 0 [facility] Comment on above: Order Comment: Speci men Type: BLOOD SPECIMENOrdering Facility: [facility] Address: [address] [place] [address] Performed By: #### 2 4323-8, 3016-3, LIPNF, 69252-2 ####[facility] LABCLIA [id number] [address] OF [facility] Anion gap in Serum or Plasma Ordered By: Augustin Moreira on 02-16-2025 Anion gap [Moles/Vol] 11 mmol/L 04-14 [facility] BUN/creatinine ratioOrdered By: Augustin Moreira on 02-16-2025 Urea nitrogen/Creatinine [Mass ratio] 17.6 mg/mg 09-19 [facility] Basic Metabolic Profile (BMP )on 02-16-2025 BUN/CRE 17.6 RATIO Normal 09-19 [facility] Comment on above: Performed By: #### L 500.2500 ####[facility] [address] [place], [address] Calcium [Mass/Vol] 10.3 mg/dL Normal 7.6-11.[address] [facility] Comment on above: Performed By: #### L 500.2500 ####[facility] [address] [place], [address] Chloride [Moles/Vol] 101 mmol/L Normal 98-108 [facility] Comment on above: Performed By: #### L 500.2500 ####[facility] [address] [place], [address] CO2 [Moles/Vol] 26.6 mmol/L Normal 21.0-32.0 [facility] Comment on above: Performed By: #### L 500.2500 ####[facility] [address] [place], [address] Creatinine [Mass/Vol] 1.44 mg/dL High 0.70-1.20 [facility] Comment on above: Performed By: #### L 500.2500 ####[facility] [address] [place], [address] GAP 11 Normal 5-15 [facility] Comment on above: Performed By: #### L 500.2500 ####[facility] [address] [place], [address] GFR/1.73 sq M.predicted among non-blacks MDRD (S/P/Bld) [Vol rate/Area] 37 mL/min/{1.73_m2} Low >60 [facility] Comment on above: Result Comment: mL/m in/1.73m2 CKD-EPI Creatinine Equation (2020) Performed By: #### L 500.2500 ####[facility] [address] [place], [address] Glucose [Mass/Vol] 110 mg/dL High 70-[address] [facility] Comment on above: Performed By: #### L 500.2500 ####[facility] [address] [place], [address] Potassium [Moles/Vol] 4.5 mmol/L Normal 3.3-5.1 [facility] Comment on above: Result Comment: Hemo lysis present, Results??could be affected. ?? Performed By: #### L 500.2500 ####[facility] [address] [place], [address] Sodium [Moles/Vol] 138 mmol/L Normal 133-[address] [facility] Comment on above: Performed By: #### L 500.2500 ####[facility] [address] [place], [address] Urea nitrogen [Mass/Vol] 25 mg/dL High 4-19 [facility] Comment on above: Performed By: #### L 500.2500 ####[facility] [address] [place], [address] Carbon dioxide, total [Moles /volume] in Central venous bloodOrdered By: Augustin Moreira on 02-16-2025 CO2 [Moles/Vol] 26.6 mmol/L 21.0-32.0 [facility] Chloride assayOrdered By: Jame Moreira on 02-16-2025 Chloride [Moles/Vol] 101 mmol/L 98-108 [facility] GFR/1.73 sq M.predicted jose g non-blacks MDRD (S/P/Bld) [Vol rate/Area]Ordered By: Augustin Moreira on 02-16-2025 Estimated GFR (MDRD) Non-Af Amer 37 Low >60 [facility] Comment on above: mL/min/1.73m2 CKD-EP I Creatinine Equation (2020) Potassium (Unsp spec) [Mass/ Vol]Ordered By: Augustin Moreira on 02-16-2025 Potassium [Moles/Vol] 4.5 mmol/L 3.3-5.1 [facility] Comment on above: Hemolysis present, R esults could be affected. Serum creatinine measurement (mass/volume)Ordered By: Augustin Moreira on 02-16-2025 Creatinine [Mass/Vol] 1.44 mg/dL High 0.70-1.20 [facility] Serum glucose measurement (m ass/volume)Ordered By: Augustin Moreira on 02-16-2025 Glucose [Mass/Vol] 110 mg/dL High 70-[address] [facility] Serum or plasma calcium tiffanie urement (mass/volume)Ordered By: Augustin Moreira on 02-16-2025 Calcium [Mass/Vol] 10.3 mg/dL 7.6-11.[address] [facility] Serum or plasma urea nitroge n measurement (mass/volume)Ordered By: Augustin Moreira on 02-16-2025 Urea nitrogen [Mass/Vol] 25 mg/dL High 4-19 [facility] Sodium levelOrdered By: Zafar Moreira on 02-16-2025 Sodium [Moles/Vol] 138 mmol/L 133-[address] [facility] Cardiology Visit Reporton Cardiology Visit Report [facility] [address] [place], [place] [id number] OFFICE VISIT Date of Service: 02/09/25 MR#: [id number] Acct: [id number] Name: YOBANI REID Rep #: [id number] : 1945 Provider: Dr. 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 Accompanied by: Self Is patient [...] Medical History Arthritis Atherosclerotic heart disease of [place] coronary artery without angina pectoris Bladder disease Cardiology follow-up encounter Debility Diabetes DM2 (diabetes mellitus, type 2) Essential hypertension Former smoker GERD (gastroesophageal reflux disease) High cholesterol History of echocardiogram History of gastric ulcer History of pulmonary embolism ( 08/2017) History of stress test History of ulceration Hypertension Hypothyroidism Incisional hernia, without obstruction or gangrene 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 [Z79.01]05/08/2018 History of pulmonary embolus (PE) [Z86.711] 05/08/2018 Hypertensive kidney disease with stage 3a chron*04/16/2021 Vitamin D deficiency [E55.9] 02/24/2022 Hypomagnesemia [E83.42] 02/24/2022 Pulmonary embolism without acute cor pulmonale *10/13/2023 Encounter Status:Closed by VICTORIANO ELIZABETH on 11/20/24 [facility] Angel 11-18-2024 AUDREY Telephone (JAZZY) JEANETTEYOBANI Douglas ([id number]) 1945 F Date Time Provider Department 11/18/24 JOSE DE JESUS HARRINGTON During your visit today, we recorded the following information about you: Severino Healy RN 11/18/2024 10:29 AM Signed patients orders for [...] Date Reviewed: 11/03/2024 Reviewed by: Roseann Elizabeth APRN.INSPECTOR AND MENDER - Fully Assessed Reason for Visit: Orders [681] Cmt: poc protime Primary Visit Diagnosis:History of pulmonary embolus (PE) [Z86.711] Other Visit Diagnosis:Personal history of DVT (deep vein thrombosis) [Z86.718] Order(s):INR (POC) [0543133] Order #: [id number] STANDING PROTHROMBIN TIME [SQPT] Order #: [id number] STANDING Prescriptions as of 11/22/2024 - isosorbide [...] 5 mg tablet Take 5 mg Mon, Fri and 7.5 mg all other days [...] diabetes mellitus with stage 3a chronic *01/15/2018 prison current use of anticoagulant [Z79.01]05/08/2018 History of pulmonary embolus (PE) [Z86.711] 05/08/2018 Hypertensive kidney disease with stage 3a chron*04/16/2021 Vitamin D deficiency [E55.9] 02/24/2022 Hypomagnesemia [E83.42] 02/24/2022 Pulmonary embolism without acute cor pulmonale *10/13/2023 Encounter Status:Closed by OWEN ALMANZA on 11/22/24 Normal [facility] INR (POC)on 11-18-2024 INR Coag (PPP) [Relative time] 2.3 {INR} High 0.8 - 1.2 [facility] Internal Quality Check Acceptable [facility] Interpretation and review of laboratory results Abnormal [facility] Location: [place], [address] [facility], [place], [address] [facility] POINT OF CARE [facility] CNOVon 11-03-2024 CNOV Office Visit (SLEWST ) YOBANI REID ([id number]) 1945 F Date Time Provider Department 11/03/24 9:00 AM ROSEANN ELIZABETH SLEWSLaila During your visit today, we recorded the following information about you: Pulse Blood pressure Weight 74/minute 139/77 113.4 kg Roseann Elizabeth APRN.CNP 11/08/2024 5:47 AM Signed [facility] New Patient Evaluation PATIENT NAME: Yobani Reid DATE OF SERVICE: November 03, 2024 CONSULTING PROVIDER: Jose De Jesus Harrington [address] [facility] [address] REASON FOR CONSULT: Jose De Jesus Harrington sends the patient for an opinion about PATRICIA. My findings and recommendations will be transmitted electronically via shared medical record to the consulting provider. HPI: Yobani Reid is a 79 year old female. Sleep-related history: she had a PSG right after being in rehab at [facility] in 2022 after a fall. Diagnosed [...] alone. 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 Has TMJ issues intermittently. GERD or aspiration: [...] Coronary atherosclerosis of unspecified type of vessel, [place] or graft 10/24/2009 Esophageal reflux Gastroesophageal reflux [...] COLONOSCOPY SC (more content not included)... Normal [facility] CNOVon 10-20-2024 CNOV Office Visit (INTMWS ) YOBANI REID ([id number]) 1945 F Date Time Provider Department 10/20/24 8:40 AM JOSE DE JESUS HARRINGTON INTMWS During your visit today, we recorded the following information about you: Pulse Respiration Blood pressure Weight 58/minute 16/minute 122/60 113.7 kg Jose De Jesus Harrington MD 10/23/2024 7:36 PM Signed This note was created using CHEQROOMriter. Subjective Yobani Reid is a 79 year [...] a recent issue with her mail-order pharmacy, [facility], which delayed her amlodipine refill, causing her [...] levels. Yobani has had difficulty accessing her enGreet account due to issues with password and two-factor authentication. She has not been able to update her information or use the [id number]-cj feature. PAST MEDICAL HISTORY Diagnosis Date Acute appendicitis 05/11/14 Allergic rhinitis, cause unspecified Allergic rhinitis CKD (chronic kidney disease) 02/23/2010 Coronary atherosclerosis of unspecified type of vessel, [place] or graft 10/24/2009 Esophageal reflux Gastroesophageal reflux [...] PAIN RELIEF, (more content not included)... Normal [facility] HEMOGLOBIN A1C (POC)on 10-20 HbA1c (Bld) [Mass fraction] 6.1 % Abnormal 4.3 - 5.6 % [facility] Comment on above: Location:[address], [place], [address] Point of care (POC) Hemoglobin A1c (HGBA1C) [...] specific diabetes management situations: The POC device director marketing provides a normal range of 4.2% to 6.5% for the HGBA1C POC test. However, the [place] [employer] guidelines indicate that patients with [...] Interpretation and review of laboratory results Abnormal [facility] CNOVon 10-08-2024 CNOV Office Visit (INTMWS ) YOBANI REID ([id number]) 1945 F Date Time Provider Department 10/08/24 10:20 AM HERBERT JAY INTMWS During your visit today, we recorded the following information about you: Pulse Respiration Blood pressure Weight 56/minute 16/minute 126/75 112.8 kg Herbert Jay, SANDEE.BUSINESS INITIATIVES MANAGER 10/08/2024 10:58 AM Signed SUBJECTIVE: Shingrix Vaccine(2 [...] Without Long-Term Current Use of Insulin (Hcc) prison current use of anticoagulant History of Pulmonary [...] this morning. 9. EXPOSURE: [facility] [place] [facility] [place] [facility]. Doesn't recall eating anything that could have caused diarrhea and nothing spoiled. No recent foreign travel. Patient did try imodium but didn't seem to make a difference. 10. ANTIBIOTIC USE: No 11. OTHER SYMPTOMS: No fever, blood in stool possibly x 1 yesterday. Reports the toilet bowel water looked pink but none since. 12. : No Protocols used: Bsuixllh-FWHWU-PN She reports being on vacation in [place]. She noted that she started with loose [...] soft. T (more content not included)... Normal [facility] 10-06-[facility] YOBANI REID ([id number]) 1945 F Date Time Provider Department 10/06/24 JOSE DE JESUS HARRINGTON INTWS During your visit today, we recorded the following information about you: Lexy Rodrigez LPN 10/06/2024 10:07 AM Signed ----- Message from Herbert Chavez APRN.BUSINESS INITIATIVES MANAGER sent at 10/05/2024 3:45 PM EST ----- [...] Pt reports she will stop in and crab picker containers. ALVARO Sosa Liza D, MD 10/06/2024 7:19 PM Signed Noted INR was down to 1.6 in August and then was fine through August on same dose coumadin. Stay on same dose and recheck in 2 weeks. If diarrhea has resolved, then does not need to do stool tests. 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 Normal [facility] CBC W Auto Differential pane l (Bld)on 10-04-2024 Basophils (Bld) [#/Vol] 0.03 10*3/uL [facility] Basophils/100 WBC (Bld) 0.5 % [facility] Differential cell count method Nom (Bld) Auto [facility] Eosinophils (Bld) [#/Vol] 0.19 10*3/uL [facility] Eosinophils/100 WBC (Bld) 3.0 % [facility] Erythrocyte distribution width (RBC) [Ratio] 14.3 % 11.5 - 15.0 % [facility] Hematocrit (Bld) [Volume fraction] 39.7 % 36.0 - 46.0 % [facility] Hemoglobin (Bld) [Mass/Vol] 12.1 g/dL 11.5 - 15.5 g/dL [facility] Immature granulocytes (Bld) [#/Vol] [facility] Immature granulocytes/100 WBC (Bld) 0.3 % [facility] Lymphocytes (Bld) [#/Vol] 1.75 10*3/uL [facility] Lymphocytes/100 WBC (Bld) 27.3 % [facility] MCH (RBC) [Entitic mass] 27.8 pg 26.0 - 34.0 pg [facility] MCHC (RBC) [Mass/Vol] 30.5 g/dL 30.5 - 36.0 g/dL [facility] MCV (RBC) [Entitic vol] 91.1 fL 80.0 - 100.0 fL [facility] Monocytes (Bld) [#/Vol] 0.66 10*3/uL [facility] Monocytes/100 WBC (Bld) 10.3 % [facility] Neutrophils (Bld) [#/Vol] 3.77 10*3/uL [facility] Neutrophils/100 WBC (Bld) 58.6 % [facility] Nucleated RBC (Bld) [#/Vol] NINF [facility] Nucleated RBC/100 WBC (Bld) [Ratio] 0.0 % /100 WBC [facility] Platelet mean volume (Bld) [Entitic vol] 11.5 fL 9.0 - 12.7 fL [facility] Platelets (Bld) [#/Vol] 286 10*3/uL [facility] RBC (Bld) [#/Vol] 4.36 10*6/uL 3.90 - 5.20 m/uL [facility] WBC (Bld) [#/Vol] 6.42 10*3/uL [facility] Basophils (Bld) [#/Vol] 0.03 10*3/uL Normal <0.11 [facility] Comment on above: Order Comment: Speci men Type: BLOOD SPECIMENOrdering Facility: [facility] Address: [address] [place] [address] Performed By: #### 5 7021-8 ####[facility] LABCLIA [id number] [place] [address] [place] Basophils/100 WBC (Bld) 0.5 % Normal [facility] Comment on above: Order Comment: Speci men Type: BLOOD SPECIMENOrdering Facility: [facility] Address: [address] [place] [address] Performed By: #### 5 7021-8 ####[facility] LABCLIA [id number] [place] [address] [place] Differential cell count method Nom (Bld) Auto Normal [facility] Comment on above: Order Comment: Speci men Type: BLOOD SPECIMENOrdering Facility: [facility] Address: [address] [place] [address] Performed By: #### 5 7021-8 ####[facility] LABCLIA [id number] [place] [address] [place] Eosinophils (Bld) [#/Vol] 0.19 10*3/uL Normal <0.46 [facility] Comment on above: Order Comment: Speci men Type: BLOOD SPECIMENOrdering Facility: [facility] Address: [address] [place] [address] Performed By: #### 5 7021-8 ####[facility] LABCLIA [id number] [place] [address] [place] Eosinophils/100 WBC (Bld) 3.0 % Normal [facility] Comment on above: Order Comment: Speci men Type: BLOOD SPECIMENOrdering Facility: [facility] Address: [address] [place] [address] Performed By: #### 5 7021-8 ####[facility] LABCLIA [id number] [place] [address] [place] Erythrocyte distribution width (RBC) [Ratio] 14.3 % Normal 11.5-15.0 [facility] Comment on above: Order Comment: Speci men Type: BLOOD SPECIMENOrdering Facility: [facility] Address: [address] [place] [address] Performed By: #### 5 7021-8 ####[facility] LABCLIA [id number] [place] [address] [place] Hematocrit (Bld) [Volume fraction] 39.7 % Normal 36.0-46.0 [facility] Comment on above: Order Comment: Speci men Type: BLOOD SPECIMENOrdering Facility: [facility] Address: [address] [place] [address] Performed By: #### 5 7021-8 ####[facility] LABCLIA [id number] [place] [address] [place] Hemoglobin (Bld) [Mass/Vol] 12.1 g/dL Normal 11.5-15.5 [facility] Comment on above: Order Comment: Speci men Type: BLOOD SPECIMENOrdering Facility: [facility] Address: [address] [place] [address] Performed By: #### 5 7021-8 ####[facility] LABCLIA [id number] [place] [address] [place] Immature granulocytes (Bld) [#/Vol] 10*3/uL Normal <0.10 [facility] Comment on above: Order Comment: Speci men Type: BLOOD SPECIMENOrdering Facility: [facility] Address: [address] [place] [address] Performed By: #### 5 7021-8 ####[facility] LABCLIA [id number] [place] [address] [place] Immature granulocytes/100 WBC (Bld) 0.3 % Normal [facility] Comment on above: Order Comment: Speci men Type: BLOOD SPECIMENOrdering Facility: [facility] Address: [address] [place] [address] Performed By: #### 5 7021-8 ####[facility] LABCLIA [id number] [place] [address] [place] Lymphocytes (Bld) [#/Vol] 1.75 10*3/uL Normal 1.00-4.00 [facility] Comment on above: Order Comment: Speci men Type: BLOOD SPECIMENOrdering Facility: [facility] Address: [address] [place] [address] Performed By: #### 5 7021-8 ####[facility] LABCLIA [id number] [place] [address] [place] Lymphocytes/100 WBC (Bld) 27.3 % Normal [facility] Comment on above: Order Comment: Speci men Type: BLOOD SPECIMENOrdering Facility: [facility] Address: [address] [place] [address] Performed By: #### 5 7021-8 ####[facility] LABCLIA [id number] [place] [address] [place] MCH (RBC) [Entitic mass] 27.8 pg Normal 26.0-34.0 [facility] Comment on above: Order Comment: Speci men Type: BLOOD SPECIMENOrdering Facility: [facility] Address: [address] [place] [address] Performed By: #### 5 7021-8 ####[facility] LABCLIA [id number] [place] [address] [place] MCHC (RBC) [Mass/Vol] 30.5 g/dL Normal 30.5-36.0 [facility] Comment on above: Order Comment: Speci men Type: BLOOD SPECIMENOrdering Facility: [facility] Address: [address] [place] [address] Performed By: #### 5 7021-8 ####[facility] LABIA [id number] [place] [address] [place] MCV (RBC) [Entitic vol] 91.1 fL Normal 80.0-100.0 [facility] Comment on above: Order Comment: Speci men Type: BLOOD SPECIMENOrdering Facility: [facility] Address: [address] [place] [address] Performed By: #### 5 7021-8 ####[facility] LABIA [id number] [place] [address] [place] Monocytes (Bld) [#/Vol] 0.66 10*3/uL Normal <0.87 [facility] Comment on above: Order Comment: Speci men Type: BLOOD SPECIMENOrdering Facility: [facility] Address: [address] [place] [address] Performed By: #### 5 7021-8 ####[facility] LABCLIA [id number] [place] [address] [place] Monocytes/100 WBC (Bld) 10.3 % Normal [facility] Comment on above: Order Comment: Speci men Type: BLOOD SPECIMENOrdering Facility: [facility] Address: [address] [place] [address] Performed By: #### 5 7021-8 ####[facility] LABCLIA [id number] [address] [address] [place] Neutrophils (Bld) [#/Vol] 3.77 10*3/uL Normal 1.45-7.50 [facility] Comment on above: Order Comment: Speci men Type: BLOOD SPECIMENOrdering Facility: [facility] Address: [address] [place] [address] Performed By: #### 5 7021-8 ####[facility] LABCLIA [id number] [place] [address] [place] Neutrophils/100 WBC (Bld) 58.6 % Normal [facility] Comment on above: Order Comment: Speci men Type: BLOOD SPECIMENOrdering Facility: [facility] Address: [address] [place] [address] Performed By: #### 5 7021-8 ####[facility] LABCLIA [id number] [place] [address] [place] Nucleated RBC (Bld) [#/Vol] 10*3/uL Normal <0.01 [facility] Comment on above: Order Comment: Speci men Type: BLOOD SPECIMENOrdering Facility: [facility] Address: [address] [place] [address] Performed By: #### 5 7021-8 ####[facility] LABCLIA [id number] [place] [address] [place] Nucleated RBC/100 WBC (Bld) [Ratio] 0.0 /100 WBC Normal [facility] Comment on above: Order Comment: Speci men Type: BLOOD SPECIMENOrdering Facility: [facility] Address: [address] [place] [address] Performed By: #### 5 7021-8 ####[facility] LABCLIA [id number] [place] [address] [place] Platelet mean volume (Bld) [Entitic vol] 11.5 fL Normal 9.0-12.7 [facility] Comment on above: Order Comment: Speci men Type: BLOOD SPECIMENOrdering Facility: [facility] Address: [address] [place] [address] Performed By: #### 5 7021-8 ####[facility] LABCLIA [id number] [place] [address] [place] Platelets (Bld) [#/Vol] 286 10*3/uL Normal 150-400 [facility] Comment on above: Order Comment: Speci men Type: BLOOD SPECIMENOrdering Facility: [facility] Address: [address] [place] [address] Performed By: #### 5 7021-8 ####[facility] LABCLIA [id number] [place] [address] [place] RBC (Bld) [#/Vol] 4.36 10*6/uL Normal 3.90-5.20 [facility] Comment on above: Order Comment: Speci men Type: BLOOD SPECIMENOrdering Facility: [facility] Address: [address] [place] [address] Performed By: #### 5 7021-8 ####[facility] LABCLIA [id number] [place] [address] [place] WBC (Bld) [#/Vol] 6.42 10*3/uL Normal 3.70-11.00 [facility] Comment on above: Order Comment: Speci men Type: BLOOD SPECIMENOrdering Facility: [facility] Address: [address] [place] [address] Performed By: #### 5 7021-8 ####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 She called [...] this morning. 9. EXPOSURE: Patient was in [place] vacationing when diarrhea started. Doesn't recall eating anything that could have caused diarrhea and nothing spoiled. No recent foreign travel. Patient did try imodium but didn't seem to make a difference. 10. ANTIBIOTIC USE: No 11. OTHER SYMPTOMS: No fever, blood in stool possibly x 1 yesterday. Reports the toilet bowel water looked pink but none since. 12. : No Protocols used: Gsdawhda-TRBIH-IS She reports being on vacation in [place]. She noted that she started with loose [...] lower leg (more content not included)... Normal [facility] Comprehensive metabolic 2000 panelon 10-04-2024 Albumin [Mass/Vol] 4.0 g/dL Normal 3.9-4.9 [facility] Comment on above: Order Comment: Speci men Type: BLOOD SPECIMENOrdering Facility: [facility] Address: [address] [place] [address] Performed By: #### 2 4323-8, 6-3 ####[facility] LABCLIA [id number] [place] [address] [place] ALP [Catalytic activity/Vol] 51 U/L Normal 34-123 [facility] Comment on above: Order Comment: Speci men Type: BLOOD SPECIMENOrdering Facility: [facility] Address: [address] [place] [address] Performed By: #### 2 4323-8, 3016-3 ####[facility] LABCLIA [id number] [place] [address] [place] ALT [Catalytic activity/Vol] 17 U/L Normal 7-38 [facility] Comment on above: Order Comment: Speci men Type: BLOOD SPECIMENOrdering Facility: [facility] Address: [address] [place] [address] Performed By: #### 2 4323-8, 3016-3 ####[facility] LABCLIA [id number] [place] [address] [place] Anion gap [Moles/Vol] 12 mmol/L Normal 8-15 [facility] Comment on above: Order Comment: Speci men Type: BLOOD SPECIMENOrdering Facility: [facility] Address: [address] [place] [address] Performed By: #### 2 4323-8, 6-3 ####[facility] LABCLIA [id number] [facility] [place] [address] [place] AST [Catalytic activity/Vol] 22 U/L Normal 13-35 [facility] Comment on above: Order Comment: Speci men Type: BLOOD SPECIMENOrdering Facility: [facility] Address: [address] [place] [address] Performed By: #### 2 4323-8, 3 ####[facility] LABCLIA [id number] [place] [address] [place] Bilirubin [Mass/Vol] 0.7 mg/dL Normal 0.2-1.3 [facility] Comment on above: Order Comment: Speci men Type: BLOOD SPECIMENOrdering Facility: [facility] Address: [address] [place] [address] Performed By: #### 2 4323-8, 3 ####[facility] LABCLIA [id number] [place] [address] [place] Calcium [Mass/Vol] 10.1 mg/dL Normal 8.5-10.2 [facility] Comment on above: Order Comment: Speci men Type: BLOOD SPECIMENOrdering Facility: [facility] Address: [address] [place] [address] Performed By: #### 2 4323-8, 6-3 ####[facility] LABCLIA [id number] [place] [address] [place] Chloride [Moles/Vol] 105 mmol/L Normal 98-107 [facility] Comment on above: Order Comment: Speci men Type: BLOOD SPECIMENOrdering Facility: [facility] Address: [address] [place] [address] Performed By: #### 2 4323-8, 3016-3 ####[facility] LABIA [id number] [place] [address] [place] CO2 [Moles/Vol] 22 mmol/L Normal 22-30 [facility] Comment on above: Order Comment: Speci men Type: BLOOD SPECIMENOrdering Facility: [facility] Address: [address] [place] [address] Performed By: #### 2 4323-8, 3015-3 ####[facility] LABIA [id number] [place] [address] [place] Creatinine [Mass/Vol] 1.51 mg/dL High 0.58-0.96 [facility] Comment on above: Order Comment: Speci men Type: BLOOD SPECIMENOrdering Facility: [facility] Address: [address] [place] [address] Performed By: #### 2 4323-8, 3 ####[facility] LABIA [id number] [place] [address] [place] Creatinine and Glomerular filtration rate.predicted panel (S/P/Bld) 35 mL/min/1.73m??? Low >=60 [facility] Comment on above: Order Comment: Speci men Type: BLOOD SPECIMENOrdering Facility: [facility] Address: [address] [place] [address] Result Comment: Brenda mated Glomerular Filtration Rate [...] GFR. Performed By: #### 2 4323-8, 6-3 ####[facility] LABIA [id number] [place] [id number] [place] Glucose [Mass/Vol] 114 mg/dL High 74-99 [facility] Comment on above: Order Comment: Speci men Type: BLOOD SPECIMENOrdering Facility: [facility] Address: [address] [place] [address] Result Comment: The [place] [employer] (ADA) provides guidance for cutoff [...] Standards of Medical Care in Diabetes 2016, [place] [employer]. Diabetes Care. 2016.39(Suppl 1). Performed By: #### 2 4323-8, 3015-3 ####[facility] LABCLIA [id number] [place] [address] [place] Potassium [Moles/Vol] 4.2 mmol/L Normal 3.7-5.1 [facility] Comment on above: Order Comment: Speci men Type: BLOOD SPECIMENOrdering Facility: [facility] Address: [address] [place] [address] Performed By: #### 2 4323-8, 3015-3 ####[facility] LABCLIA [id number] [place] [address] [place] Protein [Mass/Vol] 6.7 g/dL Normal 6.3-8.0 [facility] Comment on above: Order Comment: Speci men Type: BLOOD SPECIMENOrdering Facility: [facility] Address: [address] [place] [address] Performed By: #### 2 4323-8, 3015-3 ####[facility] LABCLIA [id number] [place] [id number] [place] Sodium [Moles/Vol] 139 mmol/L Normal 136-144 [facility] Comment on above: Order Comment: Speci men Type: BLOOD SPECIMENOrdering Facility: [facility] Address: [address] [place] [address] Performed By: #### 2 4323-8, 3016-3 ####[facility] LABCLIA [id number] [place] [address] [place] Urea nitrogen [Mass/Vol] 25 mg/dL High 7-21 [facility] Comment on above: Order Comment: Speci men Type: BLOOD SPECIMENOrdering Facility: [facility] Address: [address] [place] [address] Performed By: #### 2 4323-8, 3016-3 ####[facility] LABCLIA [id number] [place] [address] [place] PT panel Coag (PPP)on 2023 INR Coag (PPP) [Relative time] 1.6 {INR} High 0.9 - 1.3 [facility] Comment on above: Vitamin K Antagonist (VKA) Therapeutic Range: INR 2 to 3 (Target INR of 2.5) Note: For patients treated with VKA drugs, such as warfarin, the [place] [employer] 2012 Guideline recommends [...] Chest 2012, 141:7S-47S Roberto RA, et al. [facility] 2017, 70: 252-289 Interpretation and review of laboratory results Abnormal [facility] PT Coag (PPP) [Time] 16.6 s High [facility] INR Coag (PPP) [Relative time] 1.6 {INR} High 0.9-1.3 [facility] Comment on above: Order Comment: Unique bowen Type: BLOOD SPECIMENOrdering Facility: [facility] Address: [address] [place] [address] Result Comment: Shantell min K Antagonist (VKA) Therapeutic Range: INR 2 to 3 (Target INR of 2.5) Note: For patients treated with VKA drugs, such as warfarin, the [place] [employer] 2012 Guideline recommends [...] to 3.5 (target INR of 3). Bernard GH, et al. Chest 2012, 141:7S-47S Roberto RA, et al. [facility] 2017, 70: 252-289 Performed By: #### 3 4528-0 ####[facility] LABIA [id number] [place] [address] [place] PT Coag (PPP) [Time] 16.6 s High 9.7-13.0 [facility] Comment on above: Order Comment: Unique bowen Type: BLOOD SPECIMENOrdering Facility: [facility] Address: [address] [place] [address] Performed By: #### 3 4528-0 ####[facility] LABIA [id number] [place] [address] [place] TSH SerPl-aCncon 10-04-2024 TSH Qn 1.850 m[IU]/L Normal 0.270-4.20 0 [facility] Comment on above: Order Comment: Speci men Type: BLOOD SPECIMENOrdering Facility: [facility] Address: [address] [place] [address] Performed By: #### 2 4323-8, 3016-3 ####[facility] LABCLIA [id number] JUAN MANUEL [id number] [address] [place] INR (POC)on 08-05-2024 INR Coag (PPP) [Relative time] 3.4 {INR} High 0.8 - 1.2 [facility] Internal Quality Check Acceptable [facility] Interpretation and review of laboratory results Abnormal [facility] Location:[facility], [address] [place] [address], [place], [place], [address] [place] [address] POINT OF CARE [facility] Basophil percentageOrdered B y: Jennifer Black on 10-09-2023 Chloride [Moles/Vol] 109 mmol/L 98-107 [facility] Glucose [Mass/Vol] 107 mg/dL 74-[address] [facility] Comment on above: Fasting Glucose resu lt from 100 to 125 mg/dL suggests IMPAIRED HOMEOSTASIS per A.D.A. criteria. Potassium [Moles/Vol] 4.5 mmol/L 3.5-5.1 [facility] Sodium [Moles/Vol] 140 mmol/L 136-[address] [facility] Blood hemoglobin measurement (mass/volume)Ordered By: Jennifer Black on 10-09-2023 Hemoglobin (Bld) [Mass/Vol] 9.3 g/dL 12.0-15.0 [facility] Hematocrit Auto (Bld) [Volum e fraction]Ordered By: Jennifer Black on 10-09-2023 Hematocrit (Bld) [Volume fraction] 31.7 % 37-47 [facility] INR in Blood by Coagulation assayOrdered By: Jennifer Black on 10-09-2023 INR Coag (Bld) [Relative time] 2.2 {INR} [facility] Laboratory - Chemistry and C hemistry - challengeOrdered By: Jennifer Black on 10-09-2023 CO2 [Moles/Vol] 28.0 mmol/L 21.0-32.0 [facility] Urea nitrogen/Creatinine [Mass ratio] 26.4 mg/mg 10-20 [facility] Laboratory - CoagulationOrde red By: Jennifer Black on 10-09-2023 PT Coag (PPP) [Time] 24.3 s 11.7-14.9 [facility] No Panel InformationOrdered By: Jennifer Black on 10-09-2023 Estimated Creatinine Clearance Calc 34.16 ml/min [facility] Estimated GFR (MDRD) Amer 56 mL/min >60 [facility] Comment on above: GFR Calc Estimated GFR (MDRD) Non-Af Amer 46 mL/min >60 [facility] Comment on above: Non- GFR Calc Serum or plasma calcium tiffanie urement (mass/volume)Ordered By: Jennifer Black on 10-09-2023 Calcium [Mass/Vol] 9.4 mg/dL 8.5-10.[address] [facility] Serum or plasma creatinine m easurement (mass/volume)Ordered By: Jennifer Black on 10-09-2023 Creatinine [Mass/Vol] 1.21 mg/dL 0.55-1.02 [facility] Comment on above: The validity of the calculated GFR & GFRAA in patients over 70 years has not been determined. Clinical correlation is essential. Serum or plasma urea nitroge n measurement (mass/volume)Ordered By: Jennifer Black on 10-09-2023 Urea nitrogen [Mass/Vol] 32 mg/dL 7-18 [facility] Thin prep Papanicolaou smear with manual screeningOrdered By: Jennifer Black on 10-09-2023 Thin prep Papanicolaou smear with manual screening 3 5-15 [facility] Stool gastrointestinal hemog lobin detection by immunologic methodOrdered By: Jennifer Black on 10-03-2023 Lower GI hemoglobin IA Ql (Stl) [facility] Basophil percentageOrdered B y: Jennifer Black on 10-01-2023 Basophil percentage 2.0 mg/dL 2.5-4.9 [facility] WBC (Bld) [#/Vol] 8.6 10*3/uL 4.4-11.[address] [facility] Blood erythrocytes count (nu mber/volume)Ordered By: Jennifer Black on 10-01-2023 RBC (Bld) [#/Vol] 3.26 10*6/uL 4.2-5.4 [facility] Blood platelet mean volumeOr dered By: Jennifer Black on 10-01-2023 Platelet mean volume (Bld) [Entitic vol] 10.7 fL 6.2-12.0 [facility] Determination of erythrocyte mean corpuscular volume (MCV)Ordered By: Jennifer Black on 10-01-2023 MCV (RBC) [Entitic vol] 90.8 fL 81-99 [facility] Laboratory - Chemistry and C hemistry - challengeOrdered By: Jennifer Black on 10-01-2023 Free T4 [Mass/Vol] 1.17 ng/dL 0.76-1.[address] [facility] Laboratory - Hematology and Cell countsOrdered By: Jennifer Black on 10-01-2023 Erythrocyte distribution width (RBC) [Entitic vol] 49.9 fL 35.1-43.9 [facility] Erythrocyte distribution width (RBC) [Ratio] 15.1 % 11.6-14.6 [facility] MCH (RBC) [Entitic mass] 27.0 pg 27.0-32.0 [facility] MCHC Auto (RBC) [Mass/Vol]Or dered By: Jennifer Black on 10-01-2023 MCHC (RBC) [Mass/Vol] 29.7 g/dL 32-36 [facility] No Panel InformationOrdered By: Jennifer Black on 10-01-2023 Thyroid Stimulating Hormone (TSH) 4.37 uIU/mL 0.358-3.74 [facility] Platelets bldOrdered By: Sujata Black on 10-01-2023 Platelets (Bld) [#/Vol] 382 10*3/uL 150-450 [facility] Whole blood hemoglobin A1c/t otal hemoglobin ratio (mass fraction)Ordered By: Jennifer Black on 10-01-2023 HbA1c (Bld) [Mass fraction] 6.0 % 3.8-5.6 [facility] Comment on above: Normal < 5.7 % Predi abetic 5.7 - 6.4 % Diabetic >or= 6.5 % Please note range changes. Glucose Glucometer (BldC) [M ass/Vol]Ordered By: Jennifer Black on 09-30-2023 Glucose [Mass/Vol] 117 mg/dL 74-[address] [facility] Comment on above: MANAGEMENT OF PATIEN T CARE PER NURSING PROTOCOL Basophil percentageOrdered B y: Jennifer Black on 09-27-2023 Bilirubin [Mass/Vol] 0.60 mg/dL 0.20-1.00 [facility] Comment on above: For patients on eltr ombopag therapy, use of Dimension [place] TBIL is not recommended. Protein [Mass/Vol] 7.1 g/dL 6.4-8.[address] [facility] Laboratory - Chemistry and C hemistry - challengeOrdered By: Jennifer Black on 09-27-2023 ALP [Catalytic activity/Vol] 38 U/L 45-117 [facility] ALT [Catalytic activity/Vol] 25 U/L 13-56 [facility] Globulin (S) [Mass/Vol] 3.8 g/dL 2.2-4.2 [facility] Magnesium [Mass/Vol] 2.0 mg/dL 1.6-2.6 [facility] Serum or plasma IgA measurem ent (mass/volume)Ordered By: Jennifer Black on 09-27-2023 IgA [Mass/Vol] 108 mg/dL 64-422 [facility] Comment on above: Performed at: [place] [id number] Director: Brayan Aldridge PhD, Phone: [phone] Serum or plasma albumin tiffanie urement (mass/volume)Ordered By: Jennifer Kincaidjody on 09-27-2023 Albumin [Mass/Vol] 3.3 g/dL 3.2-5.[address] [facility] Serum or plasma albumin/glob ulin mass ratioOrdered By: Jennifer Kincaidjody on 09-27-2023 Albumin/Globulin [Mass ratio] 0.9 {ratio} 0.9-2.4 [facility] Serum tissue transglutaminas e IgA antibody assay (units/volume)Ordered By: Jennifer Kincaidjody on 09-27-2023 tTG IgA Qn (S) <2 U/mL 0-3 [facility] Comment on above: Negative 0 - 3 Weak Positive 4 - 10 Positive >10 Tissue Transglutaminase (tTG) has been identified as the endomysial antigen. Studies have demonstr- ated that endomysial IgA antibodies have over 99% specificity for gluten sensitive enteropathy. Thin prep Papanicolaou smear with manual screeningOrdered By: Jennifer Black on 09-27-2023 Thin prep Papanicolaou smear with manual screening 24 U/L 15-37 [facility] Absolute lymphocyte countOrd ered By: Yonatan Garberlukas on 09-26-2023 Lymphocytes Auto (Unsp spec) [#/Vol] 1.74 10*3/uL 0.83-4.51 [facility] Basophil percentageOrdered B y: Yonatan Portillo on 09-26-2023 Basophils/100 WBC (Bld) 0.3 % 0-1 [facility] Eosinophils/100 WBC (Bld) 0.7 % 0-5 [facility] Neutrophils (Bld) [#/Vol] 7.9 10*3/uL 2.0-7.7 [facility] Neutrophils/100 WBC (Bld) 74.9 % 47-70 [facility] WBC (Bld) [#/Vol] 10.6 10*3/uL 4.4-11.0 [facility] Bilirubin [Mass/Vol] 0.60 mg/dL 0.20-1.00 [facility] Comment on above: For patients on eltr ombopag therapy, use of Dimension [place] TBIL is not recommended. Chloride [Moles/Vol] 109 mmol/L 98-107 [facility] Glucose [Mass/Vol] 120 mg/dL 74-[address] [facility] Comment on above: Fasting Glucose resu lt from 100 to 125 mg/dL suggests IMPAIRED HOMEOSTASIS per A.D.A. criteria. Potassium [Moles/Vol] 3.9 mmol/L 3.5-5.1 [facility] Protein [Mass/Vol] 6.9 g/dL 6.4-8.[address] [facility] Sodium [Moles/Vol] 136 mmol/L 136-[address] [facility] Blood erythrocytes count (nu mber/volume)Ordered By: Yonatan Portillo on 09-26-2023 RBC (Bld) [#/Vol] 3.87 10*6/uL 4.2-5.4 [facility] Blood hemoglobin measurement (mass/volume)Ordered By: Yonatan Portillo on 09-26-2023 Hemoglobin (Bld) [Mass/Vol] 10.5 g/dL 12.0-15.0 [facility] Blood lymphocytes/100 leukoc ytesOrdered By: Yonatan Portillo on 09-26-2023 Lymphocytes/100 WBC (Bld) 16.4 % 19-41 [facility] Blood monocytes/100 leukocyt esOrdered By: Yonatan Portillo on 09-26-2023 Monocytes/100 WBC (Bld) 7.4 % 0-10 [facility] Blood platelet mean volumeOr dered By: Yonatan Portillo on 09-26-2023 Platelet mean volume (Bld) [Entitic vol] 11.1 fL 6.2-12.0 [facility] Determination of erythrocyte mean corpuscular volume (MCV)Ordered By: Yonatan Portillo on 09-26-2023 MCV (RBC) [Entitic vol] 88.9 fL 81-99 [facility] Glucose Glucometer (dC) [M ass/Vol]Ordered By: Radha Arriaga on 09-26-2023 Glucose [Mass/Vol] 134 mg/dL 74-[address] [facility] Comment on above: MANAGEMENT OF PATIEN T CARE PER NURSING PROTOCOL Hematocrit Auto (Bld) [Volum e fraction]Ordered By: Yonatan Portillo on 09-26-2023 Hematocrit (Bld) [Volume fraction] 34.4 % 37-47 [facility] INR in Blood by Coagulation assayOrdered By: Yonatan Portillo on 09-26-2023 INR Coag (Bld) [Relative time] 2.7 {INR} [facility] Laboratory - Chemistry and C hemistry - challengeOrdered By: Yonatan Portillo on 09-26-2023 ALP [Catalytic activity/Vol] 39 U/L 45-117 [facility] ALT [Catalytic activity/Vol] 24 U/L 13-56 [facility] CO2 [Moles/Vol] 24.0 mmol/L 21.0-32.0 [facility] Globulin (S) [Mass/Vol] 3.6 g/dL 2.2-4.2 [facility] Magnesium [Mass/Vol] 2.1 mg/dL 1.6-2.6 [facility] Urea nitrogen/Creatinine [Mass ratio] 22.6 mg/mg 10-20 [facility] Laboratory - CoagulationOrde red By: Yonatan Portillo on 09-26-2023 PT Coag (PPP) [Time] 29.1 s 11.7-14.9 [facility] Laboratory - Hematology and Cell countsOrdered By: Yonatan Portillo on 09-26-2023 Erythrocyte distribution width (RBC) [Entitic vol] 47.6 fL 35.1-43.9 [facility] Erythrocyte distribution width (RBC) [Ratio] 14.6 % 11.6-14.6 [facility] Immature granulocytes/100 WBC (Bld) 0.300 % 0.0-0.9 [facility] Comment on above: IG% - Immature Granu locytes (promyelocytes, myelocytes and metamyelocytes) > 1% indicates that a LEFT SHIFT is Present. MCH (RBC) [Entitic mass] 27.1 pg 27.0-32.0 [facility] Nucleated RBC/100 WBC (Bld) [Ratio] 0 % 0-5 [facility] MCHC Auto (RBC) [Mass/Vol]Or dered By: Yonatan Portillo on 09-26-2023 MCHC (RBC) [Mass/Vol] 30.5 g/dL 32-36 [facility] No Panel InformationOrdered By: Jennifer Black on 09-26-2023 Stool Neutral Fats Normal . [facility] Comment on above: Normal (<60 Droplets /HPF) No Panel InformationOrdered By: Yonatan Portillo on 09-26-2023 Vitamin D 25-Hydroxy 30.8 ng/mL [facility] Comment on above: Vitamin D 25(OH) Sta tus Range Deficiency <20 ng/mL (50nmol/L) Insufficiency 20 - 30 ng/mL (50 - 75 nmol/L) Sufficiency 30 - 100 ng/mL (75 - 250 nmol/L) Toxicity >100 ng/mL (>250 nmol/L) Estimated Creatinine Clearance Calc 34.43 ml/min [facility] Estimated GFR (MDRD) Amer 59 mL/min >60 [facility] Comment on above: GFR Calc Estimated GFR (MDRD) Non-Af Amer 49 mL/min >60 [facility] Comment on above: Non- GFR Calc Platelets bldOrdered By: [place] Portillo on 09-26-2023 Platelets (Bld) [#/Vol] 317 10*3/uL 150-450 [facility] Qualitative fecal fat or lip idsOrdered By: Jennifer Black on 09-26-2023 Fat Ql (Stl) Normal . [facility] Comment on above: Normal (<100 Droplet s/HPF)Performed at: - [facility] [id number] Director: Brayan Aldridge PhD, Phone: [phone] Serum or plasma albumin tiffanie urement (mass/volume)Ordered By: Yonatan Portillo on 09-26-2023 Albumin [Mass/Vol] 3.3 g/dL 3.2-5.[address] [facility] Serum or plasma albumin/glob ulin mass ratioOrdered By: Yonatan Portillo on 09-26-2023 Albumin/Globulin [Mass ratio] 0.9 {ratio} 0.9-2.4 [facility] Serum or plasma calcitriol m easurement (mass/volume)Ordered By: Yonatan Portillo on 09-26-2023 1,25-dihydroxyvitamin D3 [Mass/Vol] 37.2 pg/mL 24.8-81.5 [facility] Comment on above: Performed at: - [address] [id number] Director: Tanner Guajardo MD, Phone: [phone] Serum or plasma calcium tiffanie urement (mass/volume)Ordered By: Yonatan Portillo on 09-26-2023 Calcium [Mass/Vol] 9.2 mg/dL 8.5-10.[address] [facility] Serum or plasma creatinine m easurement (mass/volume)Ordered By: Yonatan Portillo on 09-26-2023 Creatinine [Mass/Vol] 1.15 mg/dL 0.55-1.02 [facility] Comment on above: The validity of the calculated GFR & GFRAA in patients over 70 years has not been determined. Clinical correlation is essential. Serum or plasma urea nitroge n measurement (mass/volume)Ordered By: Yonatan Portillo on 09-26-2023 Urea nitrogen [Mass/Vol] 26 mg/dL 7-18 [facility] Thin prep Papanicolaou smear with manual screeningOrdered By: Yonatan Lindsey on 09-26-2023 Thin prep Papanicolaou smear with manual screening 15 U/L 15-37 [facility] Thin prep Papanicolaou smear with manual screening 3 5-15 [facility] Absolute lymphocyte countOrd ered By: Alfredito Bowie on 09-25-2023 Lymphocytes Auto (Unsp spec) [#/Vol] 1.25 10*3/uL 0.83-4.51 [facility] Basophil percentageOrdered B y: Alfredito Bowie on 09-25-2023 Basophils/100 WBC (Bld) 0.4 % 0-1 [facility] Chloride [Moles/Vol] 128 mmol/L 98-107 [facility] Comment on above: Critical Result(s) C alled at: 21:37:57 09/25/2023 by: Ledy Denise to LSparr. Results read back by same. Eosinophils/100 WBC (Bld) 0.1 % 0-5 [facility] Glucose [Mass/Vol] 95 mg/dL 74-[address] [facility] Neutrophils (Bld) [#/Vol] 16.1 10*3/uL 2.0-7.7 [facility] Neutrophils/100 WBC (Bld) 87.3 % 47-70 [facility] Potassium [Moles/Vol] 2.8 mmol/L 3.5-5.1 [facility] Sodium [Moles/Vol] 147 mmol/L 136-[address] [facility] WBC (Bld) [#/Vol] 18.4 10*3/uL 4.4-11.0 [facility] Blood erythrocytes count (nu mber/volume)Ordered By: Alfredito Bowie on 09-25-2023 RBC (Bld) [#/Vol] 4.39 10*6/uL 4.2-5.4 [facility] Blood hemoglobin measurement (mass/volume)Ordered By: Alfredito Bowie on 09-25-2023 Hemoglobin (Bld) [Mass/Vol] 12.0 g/dL 12.0-15.0 [facility] Blood lymphocytes/100 leukoc ytesOrdered By: Alfredito Bowie on 09-25-2023 Lymphocytes/100 WBC (Bld) 6.8 % 19-41 [facility] Blood monocytes/100 leukocyt esOrdered By: Alfredito Bowie on 09-25-2023 Monocytes/100 WBC (Bld) 4.7 % 0-10 [facility] Blood platelet mean volumeOr dered By: Alfredito Bowie on 09-25-2023 Platelet mean volume (Bld) [Entitic vol] 10.9 fL 6.2-12.0 [facility] Determination of erythrocyte mean corpuscular volume (MCV)Ordered By: Alfredito Bowie on 09-25-2023 MCV (RBC) [Entitic vol] 88.6 fL 81-99 [facility] Hematocrit Auto (Bld) [Volum e fraction]Ordered By: Alfredito Bowie on 09-25-2023 Hematocrit (Bld) [Volume fraction] 38.9 % 37-47 [facility] Laboratory - Chemistry and C hemistry - challengeOrdered By: Alfredito Bowie on 09-25-2023 CO2 [Moles/Vol] 15.0 mmol/L 21.0-32.0 [facility] Urea nitrogen/Creatinine [Mass ratio] 29.8 mg/mg 10-20 [facility] Laboratory - Hematology and Cell countsOrdered By: Alfredito Bowie on 09-25-2023 Erythrocyte distribution width (RBC) [Entitic vol] 46.5 fL 35.1-43.9 [facility] Erythrocyte distribution width (RBC) [Ratio] 14.4 % 11.6-14.6 [facility] Immature granulocytes/100 WBC (Bld) 0.700 % 0.0-0.9 [facility] Comment on above: IG% - Immature Granu locytes (promyelocytes, myelocytes and metamyelocytes) > 1% indicates that a LEFT SHIFT is Present. MCH (RBC) [Entitic mass] 27.3 pg 27.0-32.0 [facility] Nucleated RBC/100 WBC (Bld) [Ratio] 0 % 0-5 [facility] MCHC Auto (RBC) [Mass/Vol]Or dered By: Alfredito Bowie on 09-25-2023 MCHC (RBC) [Mass/Vol] 30.8 g/dL 32-36 [facility] No Panel InformationOrdered By: Alfredito Bowie on 09-25-2023 Estimated Creatinine Clearance Calc 39.59 ml/min [facility] Estimated GFR (MDRD) Amer 116 mL/min >60 [facility] Comment on above: GFR Calc Estimated GFR (MDRD) Non-Af Amer 96 mL/min >60 [facility] Comment on above: Non- GFR Calc Platelets bldOrdered By: Rach Bowie on 09-25-2023 Platelets (Bld) [#/Vol] 344 10*3/uL 150-450 [facility] Serum or plasma calcium tiffanie urement (mass/volume)Ordered By: Alfredito Bowie on 09-25-2023 Calcium [Mass/Vol] 5.2 mg/dL 8.5-10.[address] [facility] Comment on above: Critical Result(s) C alled at: 21:38:19 09/25/2023 by: Ledy Denise to LSparr. Results read back by same. Serum or plasma creatinine m easurement (mass/volume)Ordered By: Alfredito Bowie on 09-25-2023 Creatinine [Mass/Vol] 0.64 mg/dL 0.55-1.02 [facility] Comment on above: The validity of the calculated GFR & GFRAA in patients over 70 years has not been determined. Clinical correlation is essential. Serum or plasma urea nitroge n measurement (mass/volume)Ordered By: Alfredito Bowie on 09-25-2023 Urea nitrogen [Mass/Vol] 19 mg/dL 7-18 [facility] Thin prep Papanicolaou smear with manual screeningOrdered By: Alfredito Bowie on 09-25-2023 Thin prep Papanicolaou smear with manual screening 4 5-15 [facility] G. lamblia+Cryptosporidium s p Ag IA Ql (Stl)on 09-22-2023 Cryptosporidium sp Ag Ql (Stl) Negative Negative [facility] G. lamblia Ag Ql (Stl) Negative Negative [facility] FECAL LACTOFERRIN/LEUKOCYTES on 09-20-2023 Lactoferrin IA Ql (Stl) Negative for lactoferrin, which may indicate the absence of fecal white blood cells Negative [facility] C. DIFFICILE PCRon C. difficile toxin genes VALERIA+probe Ql (Stl) Negative Negative for C. difficile toxin by PCR [facility] Gastrointestinal pathogens i dentified VALERIA+probe Nom (Stl)on 09-19-2023 Campylobacter sp DNA VALERIA+probe Nom (Unsp spec) Not detected Not Detected [facility] Salmonella sp DNA VALERIA+probe Ql (Unsp spec) Not detected Not Detected [facility] Shiga toxin stx gene VALERIA+probe Nom (Unsp spec) Not detected Not Detected [facility] Shigella sp DNA VALERIA+probe Ql (Unsp spec) Not detected Not Detected [facility] VITAMIN B12 BLOODon 09-01-20 Cobalamin (Vitamin B12) [Mass/Vol] 741 pg/mL 232 - 1,245 pg/mL [facility] INR (POC)on 02-24-2023 INR Coag (PPP) [Relative time] 2.6 {INR} High 0.8 - 1.2 [facility] Internal Quality Check Acceptable [facility] Basophil percentageon 2021 Bilirubin [Mass/Vol] 0.60 mg/dL 0.20-1.00 [facility] Work Phone: Comment on above: For patients on eltr ombopag therapy, use of Dimension [place] TBIL is not recommended. Cholesterol [Mass/Vol] 186 mg/dL <200 [facility] Work Phone: Comment on above: <200 mg/dL Desirable 200-240 mg/dL Borderline >240 mg/dL High Risk Protein [Mass/Vol] 7.8 g/dL 6.4-8.[address] [facility] Work Phone: Triglyceride [Mass/Vol] 113 mg/dL <199 [facility] Work Phone: Comment on above: The drugs N-Acetylcy steine and Metamizole may falsely depress this assay.Serum Triglycerides Reference Interval Normal <150 mg/dL Borderline high 150 - 199 mg/dL High 200 - 499 mg/dL Very High > or = 500 mg/dL Direct bilirubinon 2 Bilirubin.direct [Mass/Vol] 0.15 mg/dL 0.00-0.30 [facility] Work Phone: Laboratory - Chemistry and C hemistry - challengeon 10-21-2022 ALP [Catalytic activity/Vol] 43 U/L 45-117 [facility] Work Phone: ALT [Catalytic activity/Vol] 26 U/L 13-56 [facility] Work Phone: Globulin (S) [Mass/Vol] 4.0 g/dL 2.2-4.2 [facility] Work Phone: Serum or plasma albumin tiffanie urement (mass/volume)on 10-21-2022 Albumin [Mass/Vol] 3.8 g/dL 3.2-5.[address] [facility] Work Phone: Serum or plasma cholesterol in HDL measurement (mass/volume)on 10-21-2022 Cholesterol in HDL [Mass/Vol] 58 mg/dL >40 [facility] Work Phone: Comment on above: The drugs N-Acetylcy steine and Metamizole may falsely depress this assay. Reference Range HDL <40 mg/dL Low HDL Cholesterol HDL >or= 60 mg/dL High HDL Cholesterol Serum or plasma cholesterol in VLDL measurement (mass/volume)on 10-21-2022 Cholesterol in VLDL [Mass/Vol] 23 mg/dL 5-40 [facility] Work Phone: Serum or plasma low density lipoprotein (LDL) cholesterol measurement (mass/volume)on 10-21-2022 Cholesterol in LDL [Mass/Vol] 105 mg/dL 0-130 [facility] Work Phone: Thin prep Papanicolaou smear with manual screeningon 10-21-2022 Thin prep Papanicolaou smear with manual screening 17 U/L 15-37 [facility] Work Phone: PT panel Coag (PPP)on 2021 INR Coag (Bld) [Relative time] 2.2 {INR} [facility] INR in Blood by Coagulation assayon 08-13-2022 INR Coag (Bld) [Relative time] 2.2 {INR} [facility] Work Phone: Laboratory - Coagulationon 0 08-13-2022 PT Coag (PPP) [Time] 24.3 s 11.7-14.9 [facility] Work Phone: URINE CULTUREon 08-01-2022 Bacteria identified Cx Nom (U) 10,000 -<50,000 CFU/ml Mixed microbiota Abnormal [facility] Urinalysis complete panel (U )on 08-01-2022 Bilirubin Ql (U) Negative Negative [facility] Clarity (Unsp spec) Cloudy Abnormal Clear [facility] Color (U) Yellow Yellow [facility] Glucose Test strip (U) [Mass/Vol] Negative Negative [facility] Hemoglobin Ql (U) 1+ Abnormal Negative [facility] Ketones Ql (U) Negative Negative [facility] Leukocyte esterase Test strip Ql (U) 3+ Abnormal Negative [facility] Nitrite Ql (U) Negative Negative [facility] pH (U) 7.0 [pH] 5.0 - 8.0 [facility] Protein (U) [Mass/Vol] 2+ Abnormal Negative [facility] RBC LM.HPF (Urine sed) [#/Area] 11-25 /HPF Abnormal 0-3 /HPF [facility] Specific gravity (U) [Rel density] 1.018 1.005 - 1.030 [facility] Urobilinogen Ql (U) Negative Negative [facility] WBC LM.HPF (Urine sed) [#/Area] /[HPF] Abnormal 0-5 /HPF [facility] UA DIP, URINE (POC)on 2021 BILIRUBIN UA (POCT) Negative Negative [facility] CLARITY UA (POCT) Cloudy [facility] COLOR UA (POCT) Yellow [facility] GLUCOSE UA (POCT) Negative Negative mg/dL [facility] HEMOGLOBIN/BLOOD UA (POCT) Moderate Abnormal Negative [facility] KETONE UA (POCT) Negative Negative mg/dL [facility] LEUKOCYTES UA (POCT) Small Abnormal Negative [facility] NITRITE UA (POCT) Negative Negative [facility] PH UA (POCT) 7.5 4.5 - 8.0 [facility] Protein Ql (U) 30 mg/dL Abnormal Negative mg/dL [facility] SPECIFIC GRAVITY UA (POCT) 1.020 1.005 - 1.030 [facility] UROBILINOGEN UA (POCT) 0.2 E.U./dL Normal E.U./dL [facility] Basophil percentageon 2021 Bilirubin [Mass/Vol] 0.70 mg/dL 0.20-1.00 [facility] Work Phone: Comment on above: For patients on eltr ombopag therapy, use of Dimension [place] TBIL is not recommended. Cholesterol [Mass/Vol] 174 mg/dL <200 [facility] Work Phone: Comment on above: <200 mg/dL Desirable 200-240 mg/dL Borderline >240 mg/dL High Risk Protein [Mass/Vol] 7.2 g/dL 6.4-8.[address] [facility] Work Phone: Triglyceride [Mass/Vol] 112 mg/dL <199 [facility] Work Phone: Comment on above: The drugs N-Acetylcy steine and Metamizole may falsely depress this assay.Serum Triglycerides Reference Interval Normal <150 mg/dL Borderline high 150 - 199 mg/dL High 200 - 499 mg/dL Very High > or = 500 mg/dL Direct bilirubinon 2 Bilirubin.direct [Mass/Vol] 0.20 mg/dL 0.00-0.30 [facility] Work Phone: Laboratory - Chemistry and C hemistry - challengeon 04-30-2022 ALP [Catalytic activity/Vol] 43 U/L 45-117 [facility] Work Phone: ALT [Catalytic activity/Vol] 25 U/L 13-56 [facility] Work Phone: Globulin (S) [Mass/Vol] 3.5 g/dL 2.2-4.2 [facility] Work Phone: Serum or plasma albumin tiffanie urement (mass/volume)on 04-30-2022 Albumin [Mass/Vol] 3.7 g/dL 3.2-5.[address] [facility] Work Phone: Serum or plasma cholesterol in HDL measurement (mass/volume)on 04-30-2022 Cholesterol in HDL [Mass/Vol] 57 mg/dL >40 [facility] Work Phone: Comment on above: The drugs N-Acetylcy steine and Metamizole may falsely depress this assay. Reference Range HDL <40 mg/dL Low HDL Cholesterol HDL >or= 60 mg/dL High HDL Cholesterol Serum or plasma cholesterol in VLDL measurement (mass/volume)on 04-30-2022 Cholesterol in VLDL [Mass/Vol] 22 mg/dL 5-40 [facility] Work Phone: Serum or plasma low density lipoprotein (LDL) cholesterol measurement (mass/volume)on 04-30-2022 Cholesterol in LDL [Mass/Vol] 95 mg/dL 0-130 [facility] Work Phone: Thin prep Papanicolaou smear with manual screeningon 04-30-2022 Thin prep Papanicolaou smear with manual screening 18 U/L 15-37 [facility] Work Phone: ALBUMIN/CREAT RATIO RND URon 12-18-2021 Albumin DL <= 20 mg/L (U) [Mass/Vol] 12.5 mg/L [facility] Albumin/Creatinine (U) [Mass ratio] 17 mg/g <30 mg/g [facility] Creatinine Unsp time (U) [Mass/Vol] 74.9 mg/dL 20 - 300 mg/dL [facility] Basic metabolic 2000 panelon 12-18-2021 Anion gap [Moles/Vol] 9 mmol/L 9 - 18 mmol/L [facility] Calcium [Mass/Vol] 10.6 mg/dL High 8.5 - 10. 2 mg/dL [facility] Chloride [Moles/Vol] 104 mmol/L 97 - 10 5 mmol/L [facility] CO2 [Moles/Vol] 28 mmol/L 22 - 30 mmol/L [facility] Creatinine [Mass/Vol] 1.07 mg/dL High 0.58 - 0.96 mg/dL [facility] GFR/1.73 sq M.predicted among blacks MDRD (S/P/Bld) [Vol rate/Area] mL/min/{1.73_m2} [facility] GFR/1.73 sq M.predicted among non-blacks MDRD (S/P/Bld) [Vol rate/Area] 50 . [facility] Glucose [Mass/Vol] 93 mg/dL 74 - 99 mg/dL [facility] Potassium [Moles/Vol] 4.6 mmol/L 3.7 - 5.1 mmol/L [facility] Sodium [Moles/Vol] 141 mmol/L 136 - 144 mmol/L [facility] Urea nitrogen [Mass/Vol] 21 mg/dL 7 - 21 mg/dL [facility] CBC panel Auto (Bld)on 12-18 Absolute nRBC <0.01 <0.01 k/uL [facility] Erythrocyte distribution width (RBC) [Ratio] 13.3 % 11.5 - 15.0 % [facility] Hematocrit (Bld) [Volume fraction] 44.4 % 36.0 - 46.0 % [facility] Hemoglobin (Bld) [Mass/Vol] 13.5 g/dL 11.5 - 15.5 g/dL [facility] MCH (RBC) [Entitic mass] 27.8 pG 26.0 - 34.0 pG [facility] MCHC (RBC) [Mass/Vol] 30.4 g/dL Low 30.5 - 36.0 g/dL [facility] MCV (RBC) [Entitic vol] 91.5 fL 80.0 - 100.0 fL [facility] Platelet mean volume (Bld) [Entitic vol] 10.8 fL 9.0 - 12.7 fL [facility] Platelets (Bld) [#/Vol] 309 10*3/uL 150 - 400 k/uL [facility] RBC (Bld) [#/Vol] 4.85 10*6/uL 3.90 - 5.20 m/uL [facility] WBC (Bld) [#/Vol] 7.21 10*3/uL 3.70 - 11.00 k/uL [facility] HbA1c (Bld)on 12-18-2021 Average glucose Estimated from glycated hemoglobin (Bld) [Mass/Vol] 131 mg/dL [facility] HbA1c (Bld) [Mass fraction] 6.2 % High 4.3 - 5.6 % [facility] MAGNESIUM BLDon 12-18-2021 Magnesium [Mass/Vol] 2.1 mg/dL 1.7 - 2 .3 mg/dL [facility] T4 FREE/FREE THYROXon 2021 Free T4 [Mass/Vol] 1.6 ng/dL 0.9 - 1.7 ng/dL [facility] TSH BLDon 12-18-2021 TSH Qn 1.470 m[IU]/L 0.270 - 4.200 uU/mL [facility] VITAMIN D 25 HYDROXYon 12-18 25-hydroxyvitamin D3 [Mass/Vol] 28.4 ng/mL Low 31.0 - 80.0 ng/mL [facility] CNOVon 03-25-2018 CNOV Office Visit (AGCARDWST) ----YOBANI REID ([id number]) 1945 [facility] Time Provider Department03/25/18 3:00 PM INDRA STONE AGCARDWST During your visit today, we recorded the following information about you: Pulse Blood pressure Weight Height 68/minute 130/70 127.7 kg 1.626 Alie Stone MD 03/25/2018 4:57 PM SignedPERTINENT CARDIAC HISTORYASHD - PCI LAD 2009HTNHLDMRBBBPE - 08/17, provoked, 6 mos a/cADHERENCE TO GUIDELINESACE-I or ARB for HF with prior LVEFANDlt;40 (NQF 0081) - N/AASA or Plavix for ASHD (NQF 0067) - metBeta alex for ASHD with prior NH or prior LVEFANDlt;40 (NQF 0070) - metBeta [...] (FLONASE) 50 mcg/actuation nasal spray Use 1 Colliers in each nostrilonce daily.blood sugar diagnostic (FREESTYLE [...] Coronary atherosclerosis of unspecified type of vessel, [place] or graft10/24/2009- Esophageal reflux Gastroesophageal reflux- Impaired [...] HISTORYProcedure Laterality Date- COLONOSCOP W/ OR W/O [facility] SPEC 02/18/2006 Colonoscopy- COLONOSCOP W/ OR W/O [facility] SPEC 06/14/13 Colonoscopy- DANDamp;C, DIAG AND/OR THERAPEUTIC Dilation ANDamp; curettage- EGD W/O OR W/BRUSH/WASH 06/14/13 EGD- FINGER SURGERY HX Right 10/2016 trigger finger release- [facility]- FOOT/TOES SURGERY PROC UNLISTED right foot- [...] Number of children: 0Occupational 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 EAT A WHOLE FOOD, PLANT BASED [...] on file.Follow-up and Disposition History RecordedEncounter Number: [id number] Status:Closed by INDRA STONE MD on 03/25/18 [facility] PROGRESSon 03-25-2018 PROGRESS HNO ID: [id number] thor: Indra Villela: (none)Author Type: PhysicianType: Progress NotesFiled: 03/25/2018 4:57 PMNote Text:PERTINENT CARDIAC HISTORYASHD - PCI LAD 2009HTNHLDMRBBBPE - 08/17, provoked, 6 mos a/cADHERENCE TO GUIDELINESACE-I or ARB for HF with prior LVEF<40 (NQF 0081) - N/AASA or Plavix for ASHD (NQF 0067) - metBeta alex for ASHD with prior NH or prior LVEF<40 (NQF 0070) - metBeta alex for HF with prior LVEF<40 (NQF 0083) - N/AACE-I or ARB for ASHD with DM or prior LVEF<40 (NQF 0066) - metStatin therapy for ASHD or FHL or DM - metBMI documented and plan if >25 (NQF 0421) - lifestyle recommendation formTobacco use screening and referral (NQF 0028) - lifestyle recommendationformRecommendat ion for whole food, plant based diet - [...] with treatment plan.DIAGNOSIS FOR VISIT:Preoperative cardiac risk assessmentCOMMUNITY HOSPITAL OF GARDENAORY OF PRESENT ILLNESSYobani Reid returns for assessment [...] (FLONASE) 50 mcg/actuation nasal spray Use 1 Colliers in eachnostril once daily.blood sugar diagnostic (FREESTYLE [...] Coronary atherosclerosis of unspecified type of vessel, [place] or graft10/24/2009- Esophageal reflux Gastroesophageal reflux- Impaired [...] HISTORYProcedure Laterality Date- COLONOSCOP W/ OR W/O [facility] SPEC 02/18/2006 Colonoscopy- COLONOSCOP W/ OR W/O [facility] SPEC 06/14/13 Colonoscopy- DANDC, DIAG AND/OR THERAPEUTIC Dilation AND curettage- EGD W/O OR W/BRUSH/WASH 06/14/13 EGD- FINGER SURGERY HX Right 10/2016 trigger finger release- [facility]- FOOT/TOES SURGERY PROC UNLISTED right foot- HYSTEROSCOPY, DIAGNOSTIC (SEPARATE 07/18/05 Dr Mckeon. 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 Smoking status: Former [...] LDL was 114.Electronically Signed:Moriah Ford 2017 3:04 [facility]:Jose De Jesus Harrington MD [facility] CNOVon 11-07-2017 CNOV Office Visit (AGCARDWST) ----YOBANI REID ([id number]) 1945 FDate Time Provider Msgdigopoc16/8/17 11:30 AM INDRA STONE During your visit today, we recorded the following information about you: Pulse Blood pressure Weight Height 62/minute 148/78 127.6 kg 1.626 Alie Stone MD 11/11/2017 12:20 PM SignedPERTINENT CARDIAC HISTORYASHD - PCI LAD 2009HTNHLDMADHERENCE TO GUIDELINESACE-I or ARB for HF with prior LVEFANDlt;40 (NQF 0081) - N/AASA or Plavix for ASHD (NQF 0067) - metBeta alex for ASHD with prior NH or prior LVEFANDlt;40 (NQF 0070) - metBeta alex for HF with prior LVEFANDlt;40 (NQF 0083) - N/AACE-I or ARB for ASHD with DM or prior LVEFANDlt;40 (NQF 0066) - metStatin therapy for ASHD or FHL or DM - metBMI documented and plan if ANDgt;25 (NQF 0421) - lifestyle recommendation formTobacco use screening and referral (NQ 0028) - lifestyle recommendation formRecommendation for whole food, plant based diet - lifestyle recommendation formCLINICAL IMPRESSION/PLAN:Yobani Reid has clinically stable coronary disease. 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 She reports that her shortnessof breath is improving. She's had stable edema.She denies chest pain. She's had no syncope, palpitations, TIAs, amaurosis orclaudication.ALLERGIES:NAIMA RGIESAllergen Reactions- Adhesive Tape ([place]* Other: See Comments [...] (FLONASE) 50 mcg/actuation nasal spray Use 1 Colliers in each nostrilonce daily.blood sugar diagnostic (FREESTYLE [...] block. Since priortracing, QRS has increased slightly.Electronically Signed:NOLBERTO Fordecember 2016 11:49 [facility]: Felipe Aranda MD 11/07/2017 11:49 AM SignedLIFESTYLE [...] programs in your area.Referring Provider: INDRA STONE [[id number]]Allergies As of Date: 11/07/2017 Noted Allergy ReactionADHESIVE [...] W INTERP (MED OFFICE) [ECG06] Order #: [id number] as of 11/07/2017 Sig: FENOFIBRATE 160 MG [...] d* FLUTICASONE 50 MCG/ACTUATION * Use 1 Colliers in each nostril o* BLOOD SUGAR DIAGNOSTIC [...] the following areas and commit to making [place] [facility] changes. EAT A WHOLE FOOD, PLANT BASED [...] SmartForms filed during this visit:Extended VitalsEncounter Number: [id number] Status:Closed by INDRA STONE MD on 11/11/17 [facility] PROGRESSon 11-07-2017 PROGRESS HNO ID: [id number] thor: Indra Iyere: (none)Author Type: PhysicianType: Progress NotesFiled: 11/11/2017 12:20 PMNote Text:PERTINENT CARDIAC HISTORYASHD - PCI LAD 2009HTNHLDMADHERENCE TO GUIDELINESACE-I or ARB for HF with prior LVEF<40 (NQF 0081) - N/AASA or Plavix for ASHD (NQF 0067) - metBeta alex for ASHD with prior NH or prior LVEF<40 (NQF 0070) - metBeta alex for HF with prior LVEF<40 (NQF 0083) - N/AACE-I or ARB for ASHD with DM or prior LVEF<40 (NQF 0066) - metStatin therapy for ASHD or FHL or DM - metBMI documented and plan if >25 (NQF 0421) - lifestyle recommendation formTobacco use screening and referral (NQ 0028) - lifestyle recommendationformRecommendat ion for whole food, plant based diet - [...] with treatment plan.This note was generated using [employer] voice recognition system, and theremay be some incorrect words, spellings, and punctuation that were notnoted in checking the note before saving.DIAGNOSIS FOR VISIT:ASHDHISTORY OF PRESENT ILLNESSYobani Reid returns for follow-up of her coronary disease andhypertension.She has done well over the last 8 months with respect to her cardiacissues. She took a long trip to [place] for over the summer and developedpulmonary embolism, which is being treated with warfarin . She reportsthat her shortness of breath is improving. She's had stable edema.She denies chest pain. She's had no syncope, palpitations, TIAs, amaurosisor claudication.ALLERGIES:ALLERG IESAllergen Reactions- Adhesive Tape ([place]* Other: See [...] (FLONASE) 50 mcg/actuation nasal spray Use 1 Colliers in eachnostril once daily.blood sugar diagnostic (FREESTYLE [...] block. Since priortracing, QRS has increased slightly.Electronically Signed:NOLBERTO Fordecemadelyn 2016 11:49 [facility]: Jose De Jesus Harrington MD [facility] Vital Signs Date Time Vital Sign Value Performing Clinician Facility 09-05-2025 23:28-0400 Body temperature 98.1 [degF] Dr. Jose De Jesus Harrington MD Work Phone: [facility] 09-05-2025 23:28-0400 Diastolic blood pressure 58 mm[Hg] Dr. Jose De Jesus Harrington MD Work Phone: [facility] 09-05-2025 23:28-0400 Heart rate 86 /min Dr. Jose De Jesus Harrington MD Work Phone: [facility] 09-05-2025 23:28-0400 Respiratory rate 16 /min Dr. Jose De Jesus Harrington MD Work Phone: [facility] 09-05-2025 23:28-0400 SaO2% (BldA) [Mass fraction] 100 % Dr. Jose De Jesus Harrington MD Work Phone: [facility] 09-05-2025 23:28-0400 Systolic blood pressure 149 mm[Hg] Dr. Jose De Jesus Harrington MD Work Phone: [facility] 09-05-2025 22:28-0400 Body mass index (BMI) [Ratio] 43.4 kg/m2 Dr. Jose De Jesus Harrington MD Work Phone: 7(932)645-708733 [place] [address] 09-05-2025 22:28-0400 Body weight [address] Jose De Jesus Harrington MD Work Phone: 8(046)618-688333 [place] [address] 09-05-2025 21:42-0400 Body height 162.[address] Jose De Jesus Harrington MD Work Phone: 3(606)765-427133 [place] [address] 08-08-2025 13:18-0400 Body height 162.[address] Jose De Jesus Harrington MD Work Phone: 5(211)691-522033 [place] [address] 08-08-2025 13:18-0400 Body mass index (BMI) [Ratio] 41.5 kg/m2 Dr. Jose De Jesus Harrington MD Work Phone: 0(967)828-414533 [place] [address] 08-08-2025 13:18-0400 Body weight 109.[address] Jose De Jesus Harrington MD Work Phone: 8(903)882-943533 [place] [address] 08-08-2025 13:18-0400 Diastolic blood pressure 76 mm[Hg] Dr. Jose De Jesus Harrington MD Work Phone: 2(505)103-949433 [place] [address] 08-08-2025 13:18-0400 Heart rate 68 /min Dr. Jose De Jesus Harrington MD Work Phone: 4(540)842-956233 [place] [address] 08-08-2025 13:18-0400 Systolic blood pressure 154 mm[Hg] Dr. Jose De Jesus Harrington MD Work Phone: 6(029)690-054133 [place] [address] 08-04-2025 14:46-0400 Body height 162.[address] Jose De Jesus Harrington MD Work Phone: 6(484)920-537033 [place] [address] 08-04-2025 14:46-0400 Body mass index (BMI) [Ratio] 41.5 kg/m2 Dr. Jose De Jesus Harrington MD Work Phone: 6(470)139-118533 [place] [address] 08-04-2025 14:46-0400 Body weight 109.[address] Jose De Jesus Harrington MD Work Phone: 3(573)315-749133 [place] [address] 08-04-2025 14:46-0400 Diastolic blood pressure 67 mm[Hg] Dr. Jose De Jesus Harrington MD Work Phone: 4(244)298-415833 [place] [address] 08-04-2025 14:46-0400 Heart rate 57 /min Dr. Jose De Jesus Harrington MD Work Phone: 0(223)727-074833 [place] [address] 08-04-2025 14:46-0400 Respiratory rate 18 /min Dr. Jose De Jesus Harrington MD Work Phone: 9(694)846-768733 [place] [address] 08-04-2025 14:46-0400 Systolic blood pressure 125 mm[Hg] Dr. Jose De Jesus Harrington MD Work Phone: 5(512)201-275233 [place] [address] 07-26-2025 11:43-0400 Body mass index (BMI) [Ratio] 42.5 kg/m2 Dr. Jose De Jesus Harrington MD Work Phone: 8(844)588-641933 [place] [address] 07-26-2025 11:43-0400 Body temperature 98.2 [degF] Dr. Jose De Jesus Harrington MD Work Phone: 7(641)598-493233 [place] [address] 07-26-2025 11:43-0400 Body weight 112.[address] Jose De Jesus Harrington MD Work Phone: 6(327)174-626933 [place] [address] 07-26-2025 11:43-0400 Diastolic blood pressure 78 mm[Hg] Dr. Jose De Jesus Harrington MD Work Phone: 0(719)794-576033 [place] [address] 07-26-2025 11:43-0400 Respiratory rate 68 /min Dr. Jose De Jesus Harrington MD Work Phone: 4(905)726-365333 [place] [address] 07-26-2025 11:43-0400 Systolic blood pressure 122 mm[Hg] Dr. Jose De Jesus Harrington MD Work Phone: 9(706)480-747333 [place] [address] 07-12-2025 09:59-0400 Body height 162.[address] Jose De Jesus Harrington MD Work Phone: 6(044)392-809133 [place] [address] 07-12-2025 09:59-0400 Body mass index (BMI) [Ratio] 42.5 kg/m2 Dr. Jose De Jesus Harrington MD Work Phone: 8(505)033-140133 [place] [address] 07-12-2025 09:59-0400 Body weight 112.[address] Jose De Jesus Harrington MD Work Phone: [facility] 07-12-2025 09:59-0400 Diastolic blood pressure 75 mm[Hg] Dr. Jose De Jesus Harrington MD Work Phone: [facility] 07-12-2025 09:59-0400 Heart rate 59 /min Dr. Jose De Jesus Harrington MD Work Phone: [facility] 07-12-2025 09:59-0400 Systolic blood pressure 143 mm[Hg] Dr. Jose De Jesus Harrington MD Work Phone: [facility] 04-19-2025 08:22-0400 Body mass index (BMI) [Ratio] 43.09 kg/m2 Olimpia Patricia HOPPER OPERATOR.INSPECTOR AND MENDER Work Phone: [facility] 04-19-2025 08:22-0400 Body weight 112.1 kg Olimpia Patricia HOPPER OPERATOR.INSPECTOR AND MENDER Work Phone: [facility] 04-19-2025 08:22-0400 Diastolic blood pressure 60 mm[Hg] Olimpia Patricia HOPPER OPERATOR.INSPECTOR AND MENDER Work Phone: [facility] 04-19-2025 08:22-0400 Heart rate 54 /min Olimpia Patricia HOPPER OPERATOR.INSPECTOR AND MENDER Work Phone: [facility] 04-19-2025 08:22-0400 SaO2% (BldA) [Mass fraction] 98 % Olimpia Patricia HOPPER OPERATOR.INSPECTOR AND MENDER Work Phone: [facility] 04-19-2025 08:22-0400 Systolic blood pressure 128 mm[Hg] Olimpia Patricia HOPPER OPERATOR.INSPECTOR AND MENDER Work Phone: [facility] 02-09-2025 13:54-0400 Body height 162.[address] Jose De Jesus Harrington MD Work Phone: [facility] 02-09-2025 13:54-0400 Body mass index (BMI) [Ratio] 42.5 kg/m2 Dr. Jose De Jesus Harrington MD Work Phone: [facility] 02-09-2025 13:54-0400 Body weight 112.[address] Jose De Jesus Harrington MD Work Phone: [facility] 02-09-2025 13:54-0400 Diastolic blood pressure 76 mm[Hg] Dr. Jose De Jesus Harrington MD Work Phone: [facility] 02-09-2025 13:54-0400 Heart rate 58 /min Dr. Jose De Jesus Harrington MD Work Phone: [facility] 02-09-2025 13:54-0400 Respiratory rate 16 /min Dr. Jose De Jesus Harrington MD Work Phone: [facility] 02-09-2025 13:54-0400 Systolic blood pressure 148 mm[Hg] Dr. Jose De Jesus Harrington MD Work Phone: [facility] 11-03-2024 08:55-0500 Body mass index (BMI) [Ratio] 43.59 kg/m2 Roseann Glenn HOPPER OPERATOR.INSPECTOR AND MENDER Work Phone: [facility] 11-03-2024 08:55-0500 Body weight 113.4 kg Roseann Glenn HOPPER OPERATOR.INSPECTOR AND MENDER Work Phone: [facility] 11-03-2024 08:55-0500 Diastolic blood pressure 77 mm[Hg] Roseann Glenn HOPPER OPERATOR.INSPECTOR AND MENDER Work Phone: [facility] 11-03-2024 08:55-0500 Heart rate 74 /min Roseann Glenn HOPPER OPERATOR.INSPECTOR AND MENDER Work Phone: [facility] 11-03-2024 08:55-0500 SaO2% (BldA) [Mass fraction] 98 % Roseann Glenn HOPPER OPERATOR.INSPECTOR AND MENDER Work Phone: [facility] 11-03-2024 08:55-0500 Systolic blood pressure 139 mm[Hg] Roseann Glenn HOPPER OPERATOR.INSPECTOR AND MENDER Work Phone: [facility] 10-20-2024 08:19-0500 Body mass index (BMI) [Ratio] 43.71 kg/m2 Jose De Jesus Harrington MD Work Phone: [facility] 10-20-2024 08:19-0500 Body weight 113.7 kg Jose De Jesus Harrington MD Work Phone: [facility] 10-20-2024 08:19-0500 Diastolic blood pressure 60 mm[Hg] Jose De Jesus Harrington MD Work Phone: [facility] 10-20-2024 08:19-0500 Heart rate 58 /min Jose De Jesus Harrington MD Work Phone: [facility] 10-20-2024 08:19-0500 Respiratory rate 16 /min Jose De Jesus Harrington MD Work Phone: [facility] 10-20-2024 08:19-0500 Systolic blood pressure 122 mm[Hg] Jose De Jesus Harrington MD Work Phone: [facility] 10-08-2024 10:15-0500 Body mass index (BMI) [Ratio] 43.36 kg/m2 Herbert Jay HOPPER OPERATOR.BUSINESS INITIATIVES MANAGER Work Phone: [facility] 10-08-2024 10:15-0500 Body weight 112.8 kg Herbert Jay HOPPER OPERATOR.BUSINESS INITIATIVES MANAGER Work Phone: [facility] 10-08-2024 10:15-0500 Diastolic blood pressure 75 mm[Hg] Herbert Jay HOPPER OPERATOR.BUSINESS INITIATIVES MANAGER Work Phone: [facility] 10-08-2024 10:15-0500 Heart rate 56 /min Herbert Jay HOPPER OPERATOR.BUSINESS INITIATIVES MANAGER Work Phone: [facility] 10-08-2024 10:15-0500 Respiratory rate 16 /min Herbert Jay HOPPER OPERATOR.BUSINESS INITIATIVES MANAGER Work Phone: [facility] 10-08-2024 10:15-0500 Systolic blood pressure 126 mm[Hg] Herbert Jay HOPPER OPERATOR.BUSINESS INITIATIVES MANAGER Work Phone: [facility] 10-04-2024 13:36-0500 Body mass index (BMI) [Ratio] 42.28 kg/m2 Herbert Jay HOPPER OPERATOR.BUSINESS INITIATIVES MANAGER Work Phone: [facility] 10-04-2024 13:36-0500 Body temperature 97.5 [degF] Herbert Jay HOPPER OPERATOR.BUSINESS INITIATIVES MANAGER Work Phone: [facility] 10-04-2024 13:36-0500 Body weight 110 kg Herbert Jay HOPPER OPERATOR.BUSINESS INITIATIVES MANAGER Work Phone: [facility] 10-04-2024 13:36-0500 Diastolic blood pressure 58 mm[Hg] Herbert Jay HOPPER OPERATOR.BUSINESS INITIATIVES MANAGER Work Phone: [facility] 10-04-2024 13:36-0500 Heart rate 53 /min Herbert Jay HOPPER OPERATOR.BUSINESS INITIATIVES MANAGER Work Phone: [facility] 10-04-2024 13:36-0500 Respiratory rate 16 /min Herbert Jay HOPPER OPERATOR.BUSINESS INITIATIVES MANAGER Work Phone: [facility] 10-04-2024 13:36-0500 Systolic blood pressure 107 mm[Hg] Herbert Jay HOPPER OPERATOR.BUSINESS INITIATIVES MANAGER Work Phone: [facility] 07-27-2024 15:40-0400 Body mass index (BMI) [Ratio] 44.17 kg/m2 Jose De Jesus Harrington MD Work Phone: [facility] 07-27-2024 15:40-0400 Body temperature 96.8 [degF] Jose De Jesus Harrington MD Work Phone: [facility] 07-27-2024 15:40-0400 Body weight 114.9 kg Jose De Jesus Harrington MD Work Phone: [facility] 07-27-2024 15:40-0400 Diastolic blood pressure 58 mm[Hg] Jose De Jesus Harrington MD Work Phone: [facility] Comment on above: rechecked after checked on her own cuff- -138/75 07-27-2024 15:40-0400 Heart rate 58 /min Jose De Jesus Harrington MD Work Phone: [facility] 07-27-2024 15:40-0400 Respiratory rate 16 /min Jose De Jesus Harrington MD Work Phone: [facility] 07-27-2024 15:40-0400 SaO2% (BldA) [Mass fraction] 98 % Jose De Jesus Harrington MD Work Phone: [facility] 07-27-2024 15:40-0400 Systolic blood pressure 138 mm[Hg] Jose De Jesus Harrington MD Work Phone: [facility] Comment on above: rechecked after checked on her own cuff- -138/75 04-19-2024 13:52-0400 Body mass index (BMI) [Ratio] 44.46 kg/m2 Olimpia Patricia HOPPER OPERATOR.INSPECTOR AND MENDER Work Phone: [facility] 04-19-2024 13:52-0400 Body weight 115.67 kg Olimpia Patricia HOPPER OPERATOR.INSPECTOR AND MENDER Work Phone: [facility] 04-19-2024 13:52-0400 Diastolic blood pressure 64 mm[Hg] Olimpia Patricia HOPPER OPERATOR.INSPECTOR AND MENDER Work Phone: [facility] 04-19-2024 13:52-0400 Heart rate 55 /min Olimpia Patricia HOPPER OPERATOR.INSPECTOR AND MENDER Work Phone: [facility] 04-19-2024 13:52-0400 SaO2% (BldA) [Mass fraction] 97 % Olimpia Patricia HOPPER OPERATOR.INSPECTOR AND MENDER Work Phone: [facility] 04-19-2024 13:52-0400 Systolic blood pressure 138 mm[Hg] Olimpia Patricia HOPPER OPERATOR.INSPECTOR AND MENDER Work Phone: [facility] 10-17-2023 08:08-0500 Body temperature 96.3 [degF] Jose De Jesus Harrington MD Work Phone: [facility] 10-17-2023 08:08-0500 Body weight 113.85 kg Jose De Jesus Harrington MD Work Phone: [facility] 10-17-2023 08:08-0500 Diastolic blood pressure 68 mm[Hg] Jose De Jesus Harrington MD Work Phone: [facility] 10-17-2023 08:08-0500 Heart rate 55 /min Jose De Jesus Harrington MD Work Phone: [facility] 10-17-2023 08:08-0500 Respiratory rate 18 /min Jose De Jesus Harrington MD Work Phone: [facility] 10-17-2023 08:08-0500 SaO2% (BldA) [Mass fraction] 98 % Jose De Jesus Harrington MD Work Phone: [facility] 10-17-2023 08:08-0500 Systolic blood pressure 118 mm[Hg] Jose De Jesus Harrington MD Work Phone: [facility] 10-13-2023 12:37-0500 Body weight 113.85 kg Herbert Jay HOPPER OPERATOR.BUSINESS INITIATIVES MANAGER Work Phone: [facility] 10-13-2023 12:37-0500 Diastolic blood pressure 68 mm[Hg] Herbert Jay HOPPER OPERATOR.BUSINESS INITIATIVES MANAGER Work Phone: [facility] 10-13-2023 12:37-0500 Heart rate 83 /min Herbert Jay HOPPER OPERATOR.BUSINESS INITIATIVES MANAGER Work Phone: [facility] 10-13-2023 12:37-0500 Respiratory rate 16 /min Herbert Jay HOPPER OPERATOR.BUSINESS INITIATIVES MANAGER Work Phone: [facility] 10-13-2023 12:37-0500 Systolic blood pressure 125 mm[Hg] Herbert Jay HOPPER OPERATOR.BUSINESS INITIATIVES MANAGER Work Phone: [facility] 10-09-2023 20:21-0500 Body temperature 98.4 [degF] Dr. Jose De Jesus Harrington Work Phone: [facility] 10-09-2023 20:21-0500 Diastolic blood pressure 56 mm[Hg] Dr. Jose De Jesus Harrington Work Phone: [facility] 10-09-2023 20:21-0500 Heart rate 65 /min Dr. Jose De Jesus Harrington Work Phone: [facility] 10-09-2023 20:21-0500 Respiratory rate 16 /min Dr. Jose De Jesus Harrington Work Phone: 1(431)605-596433 [place] [address] 10-09-2023 20:21-0500 SaO2% (BldA) [Mass fraction] 96 % Dr. Jose De Jesus Harrington Work Phone: 5(406)598-017633 [place] [address] 10-09-2023 20:21-0500 Systolic blood pressure 132 mm[Hg] Dr. Jose De Jesus Harrington Work Phone: 2(793)039-380533 [place] [address] 10-06-2023 06:00-0500 Body mass index (BMI) [Ratio] 42.8 kg/m2 Dr. Jose De Jesus Harrington Work Phone: 6(445)968-595133 [place] [address] 10-06-2023 06:00-0500 Body weight 113.[address] Jose De Jesus Harrington Work Phone: 5(787)382-472133 [place] [address] 09-30-2023 20:10-0400 Inhaled oxygen concentration 21 % Dr. Jose De Jesus Harrington Work Phone: 5(933)285-577833 [place] [address] 09-27-2023 12:39-0400 Body height 162.[address] Jose De Jesus Harrington Work Phone: 6(749)174-765333 [place] [address] 09-26-2023 10:11-0400 Body weight 115.[address] Jose De Jesus Harrington Work Phone: 8(241)992-179133 [place] [address] 09-26-2023 08:58-0400 Body temperature 97.9 [degF] Dr. Jose De Jesus Harrington Work Phone: 3(933)322-466133 [place] [address] 09-26-2023 08:58-0400 Diastolic blood pressure 65 mm[Hg] Dr. Jose De Jesus Harrington Work Phone: 9(561)007-695033 [place] [address] 09-26-2023 08:58-0400 Heart rate 68 /min Dr. Jose De Jesus Harrington Work Phone: 9(265)488-598533 [place] [address] 09-26-2023 08:58-0400 Respiratory rate 17 /min Dr. Jose De Jesus Harrington Work Phone: 3(726)067-023733 [place] [address] 09-26-2023 08:58-0400 SaO2% (BldA) [Mass fraction] 99 % Dr. Jose De Jesus Harrington Work Phone: 5(400)285-358433 [place] [address] 09-26-2023 08:58-0400 Systolic blood pressure 126 mm[Hg] Dr. Jose De Jesus Harrington Work Phone: 6(410)246-483033 [place] [address] 09-25-2023 22:03-0400 Body mass index (BMI) [Ratio] 45 kg/m2 Dr. Jose De Jesus Harrington Work Phone: 3(089)026-216933 [place] [address] 09-25-2023 21:49-0400 Diastolic blood pressure 72 mm[Hg] Dr. Jose De Jesus Harrington Work Phone: 4(708)748-652733 [place] [address] 09-25-2023 21:49-0400 Systolic blood pressure 154 mm[Hg] Dr. Jose De Jesus Harrington Work Phone: 0(145)146-151233 [place] [address] 09-25-2023 21:40-0400 Respiratory rate 18 /min Dr. Jose De Jesus Harrington Work Phone: 3(030)438-490633 [place] [address] 09-25-2023 17:44-0400 Heart rate 60 /min Dr. Jose De Jesus Harrington Work Phone: 2(442)107-466333 [place] [address] 09-25-2023 17:44-0400 SaO2% (BldA) [Mass fraction] 100 % Dr. Jose De Jesus Harrington Work Phone: 5(204)524-742933 [place] [address] 09-25-2023 17:41-0400 Body height 160.[address] Jose De Jesus Harrington Work Phone: 7(365)518-048733 [place] [address] 09-25-2023 17:41-0400 Body mass index (BMI) [Ratio] 45.1 kg/m2 Dr. Jose De Jesus Harrington Work Phone: 3(233)805-760633 [place] [address] 09-25-2023 17:41-0400 Body temperature 97.7 [degF] Dr. Jose De Jesus Harrington Work Phone: 4(883)600-901733 [place] [address] 09-25-2023 17:41-0400 Body weight 115.[address] Jose De Jesus Harrington Work Phone: 1(268)318-866033 [place] [address] 09-15-2023 08:58-0400 Body height 161.3 cm Britney Slippery [place] PA-C Work Phone: [facility] 09-15-2023 08:58-0400 Body temperature 97.59 [degF] Britney Annalisa PA-C Work Phone: [facility] 09-15-2023 08:58-0400 Body weight 115.58 kg Britney [place] PA-C Work Phone: [facility] 09-15-2023 08:58-0400 Diastolic blood pressure 60 mm[Hg] Britney Annalisa PA-C Work Phone: [facility] 09-15-2023 08:58-0400 Heart rate 70 /min Britney Annalisa PA-C Work Phone: [facility] 09-15-2023 08:58-0400 SaO2% (BldA) [Mass fraction] 96 % Britney [place] PA-C Work Phone: [facility] 09-15-2023 08:58-0400 Systolic blood pressure 138 mm[Hg] Britney Annalisa PA-C Work Phone: [facility] 09-01-2023 11:13-0400 Body weight 114.76 kg Olimpia Patricia HOPPER OPERATOR.INSPECTOR AND MENDER Work Phone: [facility] 09-01-2023 11:13-0400 Diastolic blood pressure 70 mm[Hg] Olimpia Patricia HOPPER OPERATOR.INSPECTOR AND MENDER Work Phone: [facility] 09-01-2023 11:13-0400 Heart rate 62 /min Olimpia Patricia HOPPER OPERATOR.INSPECTOR AND MENDER Work Phone: [facility] 09-01-2023 11:13-0400 SaO2% (BldA) [Mass fraction] 97 % Olimpia Patricia HOPPER OPERATOR.INSPECTOR AND MENDER Work Phone: [facility] 09-01-2023 11:13-0400 Systolic blood pressure 120 mm[Hg] Olimpia Patricia HOPPER OPERATOR.INSPECTOR AND MENDER Work Phone: [facility] 08-14-2023 11:26-0400 Body mass index (BMI) [Ratio] 43.4 kg/m2 Dr. Jose De Jesus Harrington Work Phone: [facility] 08-14-2023 11:26-0400 Body weight 114.[address] Jose De Jesus Harrington Work Phone: [facility] 08-14-2023 11:26-0400 Diastolic blood pressure 67 mm[Hg] Dr. Jose De Jesus Harrington Work Phone: [facility] 08-14-2023 11:26-0400 Heart rate 52 /min Dr. Jose De Jesus Harrington Work Phone: [facility] 08-14-2023 11:26-0400 Respiratory rate 18 /min Dr. Jose De Jesus Harrington Work Phone: [facility] 08-14-2023 11:26-0400 SaO2% (BldA) [Mass fraction] 96 % Dr. Jose De Jesus Harrington Work Phone: [facility] 08-14-2023 11:26-0400 Systolic blood pressure 149 mm[Hg] Dr. Jose De Jesus Harrington Work Phone: [facility] 03-13-2023 11:49-0400 Body weight 114.31 kg Herbertclare Freeds HOPPER OPERATOR.BUSINESS INITIATIVES MANAGER Work Phone: [facility] 03-13-2023 11:49-0400 Diastolic blood pressure 82 mm[Hg] Herbert Jay HOPPER OPERATOR.BUSINESS INITIATIVES MANAGER Work Phone: [facility] 03-13-2023 11:49-0400 Heart rate 70 /min Herbert Jay HOPPER OPERATOR.BUSINESS INITIATIVES MANAGER Work Phone: [facility] 03-13-2023 11:49-0400 Respiratory rate 16 /min Herbert Jay HOPPER OPERATOR.BUSINESS INITIATIVES MANAGER Work Phone: [facility] 03-13-2023 11:49-0400 SaO2% (BldA) [Mass fraction] 96 % Herbert Jay HOPPER OPERATOR.BUSINESS INITIATIVES MANAGER Work Phone: [facility] 03-13-2023 11:49-0400 Systolic blood pressure 146 mm[Hg] Herbert Jay APRN.CNS Work Phone: [facility] 03-08-2023 09:43-0400 Diastolic blood pressure 65 mm[Hg] [facility] 03-08-2023 09:43-0400 Systolic blood pressure 175 mm[Hg] [facility] 03-08-2023 09:40-0400 Body height 162.56 cm [facility] 03-08-2023 09:40-0400 Body mass index (BMI) [Ratio] 43.4 kg/m2 [facility] 03-08-2023 09:40-0400 Body temperature 96.9 [degF] [facility] 03-08-2023 09:40-0400 Body weight 114.75 kg [facility] 03-08-2023 09:40-0400 Heart rate 62 /min [facility] 03-08-2023 09:40-0400 Respiratory rate 18 /min [facility] 03-08-2023 09:40-0400 SaO2% (BldA) [Mass fraction] 98 % [facility] 03-05-2023 17:00-0400 Body mass index (BMI) [Ratio] 44.9 kg/m2 [facility] 03-05-2023 17:00-0400 Body weight 118.6 kg [facility] 03-05-2023 13:58-0400 Body height 162.56 cm [facility] 03-05-2023 13:58-0400 Body temperature 95.8 [degF] [facility] 03-05-2023 13:58-0400 Diastolic blood pressure 89 mm[Hg] [facility] 03-05-2023 13:58-0400 Heart rate 72 /min [facility] 03-05-2023 13:58-0400 Respiratory rate 18 /min [facility] 03-05-2023 13:58-0400 SaO2% (BldA) [Mass fraction] 100 % [facility] 03-05-2023 13:58-0400 Systolic blood pressure 159 mm[Hg] [facility] 02-24-2023 09:44-0400 Body weight 113.85 kg Herbert Jay HOPPER OPERATOR.BUSINESS INITIATIVES MANAGER Work Phone: [facility] 02-24-2023 09:44-0400 Diastolic blood pressure 74 mm[Hg] Herbert Jay HOPPER OPERATOR.BUSINESS INITIATIVES MANAGER Work Phone: [facility] 02-24-2023 09:44-0400 Heart rate 74 /min Herbert Jay HOPPER OPERATOR.BUSINESS INITIATIVES MANAGER Work Phone: [facility] 02-24-2023 09:44-0400 Respiratory rate 16 /min Herbert Jay HOPPER OPERATOR.BUSINESS INITIATIVES MANAGER Work Phone: [facility] 02-24-2023 09:44-0400 SaO2% (BldA) [Mass fraction] 95 % Herbert Jay HOPPER OPERATOR.BUSINESS INITIATIVES MANAGER Work Phone: [facility] 02-24-2023 09:44-0400 Systolic blood pressure 136 mm[Hg] Herbert Jay HOPPER OPERATOR.BUSINESS INITIATIVES MANAGER Work Phone: [facility] 02-21-2023 14:10-0400 Body temperature 99.3 [degF] Herbert Jay HOPPER OPERATOR.BUSINESS INITIATIVES MANAGER Work Phone: [facility] 02-21-2023 14:10-0400 Body weight 114.31 kg Herbert Jay HOPPER OPERATOR.BUSINESS INITIATIVES MANAGER Work Phone: [facility] 02-21-2023 14:10-0400 Diastolic blood pressure 72 mm[Hg] Herbert Jay HOPPER OPERATOR.BUSINESS INITIATIVES MANAGER Work Phone: [facility] 02-21-2023 14:10-0400 Heart rate 75 /min Herbert Jay HOPPER OPERATOR.BUSINESS INITIATIVES MANAGER Work Phone: [facility] 02-21-2023 14:10-0400 Respiratory rate 20 /min Herbert Jay HOPPER OPERATOR.BUSINESS INITIATIVES MANAGER Work Phone: [facility] 02-21-2023 14:10-0400 SaO2% (BldA) [Mass fraction] 96 % Herbert Jay HOPPER OPERATOR.BUSINESS INITIATIVES MANAGER Work Phone: [facility] 02-21-2023 14:10-0400 Systolic blood pressure 130 mm[Hg] Herbert Jay HOPPER OPERATOR.BUSINESS INITIATIVES MANAGER Work Phone: [facility] 07-31-2022 14:27-0400 Body weight 115.67 kg Jose De Jesus Harrington MD Work Phone: [facility] 07-31-2022 14:27-0400 Diastolic blood pressure 64 mm[Hg] Jose De Jesus Harrington MD Work Phone: [facility] 07-31-2022 14:27-0400 Heart rate 59 /min Jose De Jesus Harrington MD Work Phone: [facility] 07-31-2022 14:27-0400 SaO2% (BldA) [Mass fraction] 97 % Jose De Jesus Harrington MD Work Phone: [facility] 07-31-2022 14:27-0400 Systolic blood pressure 126 mm[Hg] Jose De Jesus Harrington MD Work Phone: [facility] 06-18-2022 10:34-0400 Body weight 113.4 kg Herbert Jay HOPPER OPERATOR.BUSINESS INITIATIVES MANAGER Work Phone: [facility] 06-18-2022 10:34-0400 Diastolic blood pressure 76 mm[Hg] Herbert Jay HOPPER OPERATOR.BUSINESS INITIATIVES MANAGER Work Phone: [facility] 06-18-2022 10:34-0400 Heart rate 58 /min Herbert Jay HOPPER OPERATOR.BUSINESS INITIATIVES MANAGER Work Phone: [facility] 06-18-2022 10:34-0400 Respiratory rate 16 /min Herbert Jay HOPPER OPERATOR.BUSINESS INITIATIVES MANAGER Work Phone: [facility] 06-18-2022 10:34-0400 Systolic blood pressure 136 mm[Hg] Herbert Jay HOPPER OPERATOR.BUSINESS INITIATIVES MANAGER Work Phone: [facility] 04-24-2022 10:40-0400 Body height 162.[address] Jose De Jesus Harrington Work Phone: [facility] Work Phone: 04-24-2022 10:40-0400 Body mass index (BMI) [Ratio] 43.7 kg/m2 Dr. Jose De Jesus Harrington Work Phone: [facility] Work Phone: 04-24-2022 10:40-0400 Body weight 115.[address] Jose De Jesus Harrington Work Phone: [facility] Work Phone: 04-24-2022 10:40-0400 Diastolic blood pressure 65 mm[Hg] Dr. Jose De Jesus Harrington Work Phone: [facility] Work Phone: 04-24-2022 10:40-0400 Heart rate 51 /min Dr. Jose De Jesus Harrington Work Phone: [facility] Work Phone: 04-24-2022 10:40-0400 Respiratory rate 16 /min Dr. Jose De Jesus Harrington Work Phone: [facility] Work Phone: 04-24-2022 10:40-0400 Systolic blood pressure 129 mm[Hg] Dr. Jose De Jesus Harrington Work Phone: [facility] Work Phone: 04-24-2022 10:40-0400 Body height 162.[address] Jose De Jesus Harrington Work Phone: [facility] Work Phone: 04-24-2022 10:40-0400 Body mass index (BMI) [Ratio] 43.7 kg/m2 Dr. Jose De Jesus Harrington Work Phone: [facility] Work Phone: 04-24-2022 10:40-0400 Body weight 115.[address] Jose De Jesus Harrington Work Phone: [facility] Work Phone: 04-24-2022 10:40-0400 Diastolic blood pressure 65 mm[Hg] Dr. Jose De Jesus Harrington Work Phone: [facility] Work Phone: 04-24-2022 10:40-0400 Heart rate 51 /min Dr. Jose De Jesus Harrington Work Phone: [facility] Work Phone: 04-24-2022 10:40-0400 Respiratory rate 16 /min Dr. Jose De Jesus Harrington Work Phone: [facility] Work Phone: 04-24-2022 10:40-0400 Systolic blood pressure 129 mm[Hg] Dr. Jose De Jesus Harrington Work Phone: [facility] Work Phone: 12-18-2021 08:45-0500 Body weight 116.12 kg Jose De Jesus Harrington MD Work Phone: [facility] 12-18-2021 08:45-0500 Diastolic blood pressure 68 mm[Hg] Jose De Jesus Harrington MD Work Phone: [facility] 12-18-2021 08:45-0500 Heart rate 74 /min Jose De Jesus Harrington MD Work Phone: [facility] 12-18-2021 08:45-0500 Systolic blood pressure 122 mm[Hg] Jose De Jesus Harrington MD Work Phone: [facility] Encounters Encounter Date Encounter Type Care Provider Facility Start: 10-04-2025 ambulatory Augustin Moreira Facility:[facility] Start: 09-22-2025 End: 09-22-2025 ambulatory JOSE DE JESUS HARRINGTON Facility:[facility] Start: 09-09-2025 End: 09-09-2025 ambulatory SELF Facility:[facility] Start: 09-05-2025 End: 09-05-2025 Emergency department patient visit Dr. 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 Start: 08-08-2025 End: 08-08-[address] Juana Peters MD -[facility] Work Phone: Start: 08-08-2025 End: 08-08-[address] Jose De Jesus Harrington MD Work Phone: [facility] Start: 08-04-2025 End: 08-04-[address] Augustin Moreira MD -[facility] Work Phone: Start: 08-04-2025 End: 08-04-[address] Jose De Jesus Harrington MD Work Phone: [facility] Start: 07-27-2025 End: 07-27-[address] Jose De Jesus Harrington MD Work Phone: -Laboratory Start: 07-27-2025 End: 07-27-[address] Augustin Moreira MD -Laboratory Work Phone: Start: 07-26-2025 End: 07-26-[address] Juana Peters MD -[facility] Work Phone: Start: 07-26-2025 End: 07-27-[address] Jose De Jesus Harrington MD Work Phone: -[facility] Start: 07-12-2025 End: 07-12-[address] Juana Peters MD -[facility] Work Phone: Start: 07-12-2025 End: 07-12-[address] Jose De Jesus Harrington MD Work Phone: -[facility] Start: 06-30-2025 End: 06-30-2025 Anticoagulant drug monitoring [facility] Work Phone: Coumadin [facility] [place] Comment on above: prison current us e of anticoagulant (Primary Dx); History of pulmonary embolus (PE) Start: 06-30-2025 End: 06-30-2025 ambulatory [facility] Facility:[facility] Start: 05-31-2025 Non-patient / Non-visit Dr. 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 Start: 05-04-2025 End: 07-04-2025 Follow-up encounter Olimpia Gomez APRN.CNP Work Phone: [facility] Medicine [place] Start: 04-28-2025 End: 04-28-2025 Anticoagulant drug monitoring [facility] Work Phone: [facility] [place] Comment on above: prison current us e of anticoagulant (Primary Dx); History of pulmonary embolus (PE) Start: 04-28-2025 End: 04-28-2025 [facility] Facility:[facility] Start: 04-19-2025 End: 04-19-2025 Patient encounter procedure Olimpia Gomez APRN.CNP Work Phone: [facility] [place] Comment on above: Hypertensive kidney disease with [...] disorder Start: 04-19-2025 End: 04-19-2025 ambulatory OLIMPIA PATRICIA Facility:[facility] Start: 04-11-2025 End: 04-11-2025 ambulatory Felicity Martinez MA [facility] Start: 04-11-2025 End: 04-11-2025 Patient encounter procedure Felicity Martinez MA [facility] Comment on above: Population Health Na vigation Outreach [facility] Start: 04-01-2025 End: 04-01-2025 ambulatory JOSE DE JESUS HARRINGTON Facility:[facility] Start: 04-01-2025 End: 04-01-2025 Anticoagulant drug monitoring [facility] Work Phone: [facility] Comment on above: prison current us e of anticoagulant (Primary Dx); History of pulmonary embolus (PE) Start: 03-03-2025 End: 03-03-2025 Anticoagulant drug monitoring [facility] Work Phone: Coumadin 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 Start: 02-16-2025 End: 02-16-[address] Jose De Jesus Harrington MD Work Phone: [facility] Work Phone: Start: 02-16-2025 End: 02-16-[address] Augustin Moreira MD -Laboratory Work Phone: Start: 02-16-2025 End: 02-16-2025 ambulatory Augustin Moreira Facility:[facility] Start: 02-10-2025 End: 02-10-2025 [facility] Comment on above: prison current us e of anticoagulant (Primary Dx); History of pulmonary embolus (PE) Start: 02-10-2025 End: 02-10-2025 ambulatory JOSE DE JESUS D BRIJESHAS Facility:[facility] Start: 02-09-2025 End: 02-09-[address] Augustin Moreira MD -[facility] Work Phone: Start: 02-09-2025 End: 02-09-2025 ambulatory Augustin Moreira [place] Start: 01-27-2025 End: 01-27-2025 Anticoagulant drug monitoring [facility] Work Phone: Coumadin 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 Start: 11-20-2024 End: 11-20-2024 Telephone encounter Tom Velásquez DMD Work Phone: Dentistry Comment on above: Appointment Start: 11-18-2024 End: 11-22-2024 Telephone encounter Jose De Jesus Harrington MD [facility]: [facility] [place] Comment on above: Orders (poc protime) Start: 11-18-2024 End: 11-18-2024 ambulatory JOSE DE JESUS ENRIQUEZAMPAS Facility:[facility] Start: 11-18-2024 End: 11-18-2024 Anticoagulant drug monitoring [facility] Work Phone: [facility] [place] Comment on above: prison current us e of anticoagulant (Primary Dx); History of pulmonary embolus (PE) Start: 11-03-2024 End: 11-08-2024 Patient encounter procedure Roseann Elizabeth APRN.INSPECTOR AND MENDER Work Phone: Neurology Comment on above: PATRICIA (obstructive sle ep apnea) (Primary Dx); Claustrophobia Start: 11-03-2024 End: 11-03-2024 ambulatory ROSEANN ELIZABETH Facility:[facility] Start: 10-20-2024 End: 10-20-2024 ambulatory JOSE DE JESUS COLEYDIAN Facility:[facility] Start: 10-20-2024 End: 10-20-2024 Anticoagulant drug monitoring [facility] Work Phone: [facility] [place] Comment on above: prison current us e of anticoagulant (Primary Dx); History of pulmonary embolus (PE) Start: 10-20-2024 End: 10-20-2024 Office outpatient visit 25 minutes Jose De Jesus Harrington MD Work Phone: [facility] [place] Comment on above: Type 2 diabetes colleen [...] joint stiffness of right hand; Acquired hypothyroidism; prison current use of anticoagulant ; Hypomagnesemia; Vitamin D deficiency; Hypercalcemia; Mixed hyperlipidemia; Encounter for therapeutic drug monitoring; Encounter for immunization Start: 10-20-2024 End: 10-20-2024 ambulatory JOSE DE JESUS HARRINGTON Facility:[facility] Start: 10-08-2024 End: 10-08-2024 Office outpatient visit 15 minutes Herbert Jay APRN.BUSINESS INITIATIVES MANAGER Work Phone: [facility] [place] Comment on above: Diarrhea, unspecifie d type (Primary Dx); prison current use of anticoagulant ; History of pulmonary embolus (PE); Type 2 diabetes mellitus with stage 3a chronic kidney disease, without long-term current use of insulin (HCC) Start: 10-08-2024 End: 10-08-2024 ambulatory HERBERT JAY Facility: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 Start: 10-04-2024 End: 10-04-2024 ambulatory Jose De Jesus Harrington MD Work Phone: [facility] [place] Comment on above: Diarrhea Start: 09-16-2024 End: 09-16-2024 Anticoagulant drug monitoring [facility] Work Phone: [facility] [place] Comment on above: 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); History of pulmonary embolus (PE) Start: 09-02-2024 End: 09-02-2024 Anticoagulant drug monitoring [facility] Work Phone: [facility] [place] Comment on above: 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); History of pulmonary embolus (PE) Start: 08-18-2024 End: 08-18-2024 Anticoagulant drug monitoring [facility] Work Phone: [facility] [place] Comment on above: prison current us e of anticoagulant (Primary Dx); History of pulmonary embolus (PE) Start: 08-05-2024 End: 08-05-2024 Anticoagulant drug monitoring [facility] Work Phone: [facility] [place] Comment on above: prison current us e of anticoagulant (Primary Dx); History of pulmonary embolus (PE) Start: 07-29-2024 End: 07-29-2024 Anticoagulant drug monitoring [facility] Work Phone: [facility] [place] Comment on above: prison current us e of anticoagulant (Primary Dx); History of pulmonary embolus (PE) Start: 07-27-2024 End: 07-27-2024 Office outpatient visit 25 minutes Jose De Jesus Harrington MD Work Phone: [facility] [place] Comment on above: Essential hypertensi on (Primary Dx); PATRICIA (obstructive sleep apnea) Start: 07-27-2024 End: 07-27-2024 Telephone encounter Jose De Jesus Harrington MD Work Phone: [facility] [place] Comment on above: Patient Update Start: 07-13-2024 Telephone encounter Jose De Jesus de la rosa MD Work Phone: [facility] [place] Comment on above: Patient Question Start: 07-01-2024 End: 07-01-2024 Anticoagulant drug monitoring [facility] Work Phone: [facility] [place] Comment on above: prison current us e of anticoagulant (Primary Dx); History of pulmonary embolus (PE) Start: 05-27-2024 End: 05-27-2024 Anticoagulant drug monitoring [facility] Work Phone: [facility] [place] Comment on above: 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); History of pulmonary embolus (PE) Start: 04-29-2024 End: 04-29-2024 Anticoagulant drug monitoring [facility] Work Phone: [facility] [place] Comment on above: prison current us e of anticoagulant (Primary Dx); History of pulmonary embolus (PE) Start: 04-19-2024 End: 04-19-2024 Patient encounter procedure Olimpia Gomez APRN.CNP Work Phone: [facility] [place] Comment on above: Essential hypertensi on (Primary Dx); Mixed hyperlipidemia; Atherosclerosis of [place] coronary artery of [place] heart without angina pectoris; Pulmonary embolism without acute cor pulmonale, unspecified chronicity, unspecified pulmonary embolism type (HCC); Class 3 severe obesity due to excess calories without serious comorbidity with body mass index (BMI) of 40.0 to 44.9 in adult (HCC); Type 2 diabetes mellitus with stage 3a chronic kidney disease, without long-term current use of insulin (HCC); Hypercalcemia; Vitamin D deficiency; Acquired hypothyroidism; Encounter for therapeutic drug monitoring Start: 04-02-2024 Refill Jose De Jesus jeffrey MD Work Phone: [facility] [place] Comment on above: Refill Request Start: 04-01-2024 End: 04-01-2024 Anticoagulant drug monitoring [facility]: [facility] [place] Comment on above: 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); History of pulmonary embolus (PE) Start: 03-19-2024 End: 03-19-2024 Anticoagulant drug monitoring [facility] Work Phone: [facility] [place] Comment on above: prison current us e of anticoagulant (Primary Dx); History of pulmonary embolus (PE) Start: 03-05-2024 End: 03-05-2024 Anticoagulant drug monitoring [facility] Work Phone: [facility] [place] Comment on above: prison current us e of anticoagulant (Primary Dx); History of pulmonary embolus (PE) Start: 02-23-2024 Refill Jose De Jesus jeffrey MD Work Phone: [facility] [place] Comment on above: Refill Request Orders Start: 02-06-2024 End: 02-06-2024 Anticoagulant drug monitoring [facility] Work Phone: [facility] [place] Comment on above: 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 Jose De Jesus Harrington Work Phone: [facility] Work Phone: Start: 11-27-2023 End: 11-27-[address] 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); History of pulmonary embolus (PE) Start: 10-30-2023 Telephone encounter Jose De Jesus de la rosa MD Work Phone: [facility] Comment on above: Requesting LUZ MARIA notes Start: 10-17-2023 End: 10-17-2023 Office outpatient visit 25 minutes Jose De Jesus Harrington MD Work Phone: [facility] [place] Comment on above: Type 2 diabetes colleen itus with stage 3a chronic kidney disease, without long-term current use of insulin (HCC) (Primary Dx); Hordeolum externum of left upper eyelid; Vitamin D deficiency; Acquired hypothyroidism; Alternating constipation and diarrhea; Hypercalcemia; Essential hypertension; Hypomagnesemia; Contusion of right hip, sequela Start: 10-14-2023 End: 10-14-2023 Anticoagulant drug monitoring [facility] Work Phone: [facility] Comment on above: prison current us e of anticoagulant (Primary Dx); History of pulmonary embolus (PE) Start: 10-13-2023 End: 10-13-2023 Office outpatient visit 25 minutes Herbert Jay APRN.CNS Work Phone: [facility] [place] Comment on above: Contusion of right h ip, subsequent encounter (Primary Dx); Debility; Pulmonary embolism without acute cor pulmonale, unspecified chronicity, unspecified pulmonary embolism type (HCC) Start: 10-09-2023 End: 10-09-[address] Jose De Jesus Harrington Work Phone: [facility] Work Phone: Start: 10-09-2023 End: 10-09-[address] Jose De Jesus Harrington Work Phone: [facility] Work Phone: Start: 10-06-2023 Non-patient / Non-visit Dr. Nayana Harrington Work Phone: [facility] Work Phone: Start: 10-04-2023 Non-patient / Non-visit Dr. Nayana Harrington Work Phone: [facility] Work Phone: Start: 10-02-2023 Non-patient / Non-visit Dr. Nayana Harrington Work Phone: [facility] Work Phone: Start: 10-01-2023 Non-patient / Non-visit Dr. Nayana Harrington Work Phone: [facility] Work Phone: Start: 09-30-2023 Non-patient / Non-visit Dr. Nayana Harrington Work Phone: [facility] Work Phone: Start: 09-29-2023 Non-patient / Non-visit Dr. Nayana Harrington Work Phone: [facility] Work Phone: Start: 09-26-2023 End: 10-09-2023 Evaluation and management of inpatient Dr. Jose De Jesus Harrington Work Phone: [facility] Work Phone: Start: 09-26-2023 Non-patient / Non-visit Dr. Nayana Harrington Work Phone: [facility] Work Phone: Start: 09-25-2023 Non-patient / Non-visit Dr. Nayana Harrington Work Phone: [facility] Work Phone: Start: 09-25-2023 End: 09-26-2023 Evaluation and management of inpatient Dr. Jose De Jesus Harrington Work Phone: [facility] Work Phone: Start: 09-25-[address] Jose De Jesus Harrington Work Phone: [facility] Work Phone: Start: 09-19-2023 End: 09-19-2023 ambulatory [facility] [place] Work Phone: [facility] [place] Start: 09-19-2023 End: 09-19-2023 Anticoagulant drug monitoring [facility] Work Phone: [facility] [place] Comment on above: prison current us e of anticoagulant (Primary Dx); History of pulmonary embolus (PE) Start: 09-15-2023 End: 09-15-2023 Patient encounter procedure Britney Fang PA-C Work Phone: General Surgery Comment on above: Bowel habit changes (Primary Dx); Diarrhea, unspecified type; History of colon polyps; On continuous oral anticoagulation; Abnormal weight loss Start: 09-02-2023 ambulatory Olimpia SMITHINSPECTOR AND MENDER Work Phone: [facility] [place] Comment on above: Results Start: 09-02-2023 E-mail encounter fro m caregiver Olimpia Gomez APRN.CNP Work Phone: [facility] [place] Start: 09-01-2023 End: 09-01-2023 Patient encounter procedure Olimpia Gomez APRN.INSPECTOR AND MENDER Work Phone: [facility] [place] Comment on above: Bowel habit changes (Primary Dx); Diarrhea, unspecified type; History of colon polyps; Hypomagnesemia; Acquired hypothyroidism; Vitamin D deficiency; Type 2 diabetes mellitus with stage 3a chronic kidney disease, without long-term current use of insulin (HCC); Encounter for therapeutic drug monitoring Start: 08-22-2023 End: 08-22-2023 Anticoagulant drug monitoring [facility] Work Phone: [facility] [place] Comment on above: 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); History of pulmonary embolus (PE) Start: 05-29-2023 End: 05-29-2023 Anticoagulant drug monitoring [facility] Work Phone: [facility] [place] Comment on above: prison current us e of anticoagulant; History of pulmonary embolus (PE) Start: 05-01-2023 End: 05-01-2023 Anticoagulant drug monitoring [facility] Work Phone: [facility] [place] Comment on above: prison current us e of anticoagulant; History of pulmonary embolus (PE) Start: 04-03-2023 End: 04-03-2023 Anticoagulant drug monitoring [facility] Work Phone: [facility] [place] Comment on above: prison current us e of anticoagulant; History of pulmonary embolus (PE) Start: 04-01-2023 Telephone encounter Herbert flores APRN.BUSINESS INITIATIVES MANAGER Work Phone: [facility] [place] Comment on above: Results Start: 03-20-2023 End: 03-20-2023 Anticoagulant drug monitoring [facility] Work Phone: Coumadin [facility] [place] Comment on above: prison current us e of anticoagulant; History of pulmonary embolus (PE) Start: 03-14-2023 End: 03-14-2023 Anticoagulant drug monitoring [facility] Work Phone: Coumadin [facility] [place] Comment on above: prison current us e of anticoagulant; History of pulmonary embolus (PE) Start: 03-13-2023 End: 03-13-2023 Office outpatient visit 25 minutes Herbert Jay APRN.BUSINESS INITIATIVES MANAGER Work Phone: [facility] [place] Comment on above: Laceration of right thumb without foreign body without damage to nail, subsequent encounter (Primary Dx); Open fracture of base of distal phalanx of right thumb; Contusion of left knee, subsequent encounter; Abrasion, left knee, subsequent encounter; Muscle spasm; Back strain, subsequent encounter Start: 03-08-2023 ambulatory Aaliyah JORGENSEN CONSUMER LOAN OFFICER Comment on above: Symptoms Start: 03-08-2023 Telephone encounter Jose De Jesus de la rosa MD Work Phone: [facility] [place] Comment on above: Back Pain Start: 03-08-2023 End: 03-08-2023 Emergency department patient visit [facility] Start: 03-05-2023 End: 03-05-2023 Emergency department patient visit [facility] Start: 02-24-2023 End: 02-24-2023 Office outpatient visit 15 minutes Herbert Jay APRN.BUSINESS INITIATIVES MANAGER Work Phone: [facility] [place] Comment on above: Sinobronchitis (Prim alex Dx); Chronic anticoagulation Start: 02-24-2023 End: 02-24-2023 Anticoagulant drug monitoring [facility] Work Phone: Coumadin 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; History of pulmonary embolus (PE) Start: 01-20-2023 Refill Jose De Jesus jeffrey MD Work Phone: [facility] [place] Comment on above: Refill Request Start: 12-18-2022 End: 12-18-2022 Anticoagulant drug monitoring [facility] Work Phone: [facility] Comment on above: prison current us e of anticoagulant; History of pulmonary embolus (PE) Start: 11-21-2022 End: 11-21-2022 Anticoagulant drug monitoring [facility] Work Phone: [facility] Comment on above: prison current us e of anticoagulant; History of pulmonary embolus (PE) Start: 10-31-2022 End: 10-31-2022 [facility]ticoagulant drug monitoring [facility] Comment on above: 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; History of pulmonary embolus (PE) Start: 10-21-2022 End: 10-21-2022 ambulatory [facility] Work Phone: Start: 10-21-2022 End: 10-21-2022 Patient encounter procedure [facility] Start: 09-26-2022 Telephone encounter Jose De Jesus de la rosa MD Work Phone: [facility] Comment on above: Orders (protime) Start: 09-26-2022 End: 09-26-2022 Anticoagulant drug monitoring [facility] Work Phone: [facility] Comment on above: 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 Jose De Jesus Harrington Work Phone: [facility] Work Phone: Start: 08-13-2022 End: 08-13-[address] Jose De Jesus Harrington Work Phone: [facility], Specimen Start: 08-10-2022 Orders Only Jose De Jesus jeffrey MD Work Phone: [facility] [place] Comment on above: Other microscopic he maturia (Primary Dx); UTI symptoms Start: 08-06-2022 Refill Jose De Jesus jeffrey MD Work Phone: [facility] [place] Comment on above: Refill Request Start: 08-02-2022 Telephone encounter Jose De Jesus de la rosa MD Work Phone: [facility] [place] Comment on above: Patient Update; Elizabeth ent Question Start: 07-31-2022 End: 07-31-2022 Office outpatient visit 25 minutes Jose De Jesus Harrington MD Work Phone: [facility] [place] Comment on above: UTI symptoms (Primar y Dx); Urgency incontinence Start: 07-30-2022 End: 07-30-2022 Anticoagulant drug monitoring [facility] Work Phone: [facility] [place] Comment on above: 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; History of pulmonary embolus (PE) Start: 07-26-2022 End: 07-26-2022 Anticoagulant drug monitoring [facility] Work Phone: [facility] [place] Comment on above: 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; History of pulmonary embolus (PE) Start: 07-18-2022 Telephone encounter Jose De Jesus de la rosa MD Work Phone: [facility] [place] Comment on above: Insurance Authorizat ion Start: 07-16-2022 Patient encounter status Jose De Jesus Harrington MD Work Phone: [facility] [place] Start: 07-16-2022 Telephone encounter Jose De Jesus de la rosa MD Work Phone: [facility] [place] Comment on above: Lovenox bridging nee ded Start: 07-12-2022 End: 07-12-2022 Anticoagulant drug monitoring [facility] Work Phone: [facility] Comment on above: 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; History of pulmonary embolus (PE) Start: 06-18-2022 End: 06-18-2022 Patient encounter procedure Herbert Jay APRN.BUSINESS INITIATIVES MANAGER Work Phone: [facility] [place] Comment on above: Type 2 diabetes colleen itus with stage 3a chronic kidney disease, without long-term current use of insulin (HCC) (Primary Dx); Essential hypertension; Mixed hyperlipidemia; prison current use of anticoagulant; Acquired hypothyroidism; Need for shingles vaccine; Screening for diabetic retinopathy; Class 3 severe obesity due to excess calories without serious comorbidity with body mass index (BMI) of 40.0 to 44.9 in adult ([facility]) Start: 06-07-2022 End: 06-07-2022 Anticoagulant drug monitoring [facility] Comment on above: 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 Jose De Jesus Harrington Work Phone: [facility] Start: 04-24-[address] Lorie Harrington Work Phone: [facility] Comment on above: Bladder procedure wi th Dr. Peters Start: 04-24-2022 End: 04-24-2022 Admission to same day surgery center Dr. Jose De Jesus Harrington Work Phone: [facility] Start: 04-24-2022 End: 04-24-[address] 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; History of pulmonary embolus (PE) Start: 12-18-2021 End: 12-18-2021 Patient encounter procedure Jose De Jesus Harrington MD Work Phone: [facility] [place] Comment on above: Controlled type 2 di abetes mellitus with stage 3 chronic kidney disease, without long-term current use of insulin (HCC) (Primary Dx); Essential hypertension; Acquired hypothyroidism; Mixed hyperlipidemia; Hypomagnesemia; Vitamin D deficiency; 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 Jose De Jesus Harrington MD Work Phone: Start: 09-05-[address] Jose De Jesus Harrington MD Work Phone: Start: 04-19-2025 Adult depression scr eening assessment Olimpia Patricia HOPPER OPERATOR.INSPECTOR AND MENDER Work Phone: Start: 11-18-2024 Prothrombin time [facility] [...] Dr Chato Harrington Work Phone: Start: 09-19-2023 PFIZER-BIONTECH COVI D-19 VACCINE (2022- SEASON) AGE 12+ YR Olimpia Gomez HOPPER OPERATOR.INSPECTOR AND MENDER Work Phone: Start: 09-19-2023 INFLUENZA VACCINE, P RSV FREE, AGE 65+ YR, HIGH DOSE, QUADRIVALENT (FLUZONE HIGH-DOSE) Olimpia Gomez HOPPER OPERATOR.INSPECTOR AND MENDER Work Phone: Start: 09-19-2023 End: 09-19-2023 Iaad ia giardia Britney Fang PA-C Work Phone: Start: 09-19-2023 Inf [...] Adult depression scr eening assessment Herbert Jay HOPPER OPERATOR.BUSINESS INITIATIVES MANAGER Work Phone: Start: 04-11-2021 Adult depression scr eening assessment [facility] Work Phone: Start: 07-27-2019 Colonoscopy [facility]tico[facility] Work Phone: Plan of Treatment Date Care Activity Detail Author Start: 03-05-2033 Urine microalbumin profile [facility] Start: 07-15-2027 Urine microalbumin profile DTAP,TDAP,TD (2 - Td or Tdap) [facility] Start: 05-20-2026 Glaucoma screening Dilated Retinal E xam [facility] Start: 04-19-2026 Annual PCP Team Railroad Dining [employer] Steward/Stewardess sharon Disease Visit Annual PCP Team Chronic Disease Visit [facility] Start: 04-19-2026 Anxiety Screening Anxiety Screening [facility] Start: 04-19-2026 BP Controlled (<130/80) BP Controlle d (<130/80) [facility] Start: 04-19-2026 Complete blood count Hemoglobin/Mario Alberto tocrit [facility] Start: 04-19-2026 Creatinine measurement Serum Creatin ine [facility] Start: 04-19-2026 Depression Screening Depression Scre ening [facility] Start: 04-19-2026 Hepatitis B screening Urine Al bumin:Creatinine Ratio [facility] Start: 04-19-2026 Hepatitis B surface antibody level LDL Cholesterol [facility] Start: 11-04-2025 End: 11-04-2025 Patient encounter procedure 11/04/2025 1:40 PM EST Office Visit [facility] [place] [address] [place] [id number] Jose De Jesus Harrington MD [address] [place] [address] 6 mo follow up [facility] [place] Comment on above: 6 mo follow up Start: 10-20-2025 Annual PCP Team [employer] Steward/Stewardess sharon Disease Visit Annual PCP Team Chronic Disease Visit [facility] Start: 10-20-2025 BP Controlled (<130/80) BP Controlle d (<130/80) [facility] Start: 10-20-2025 Covid-19 Vaccine ( season) Covid-19 Vaccine ( season) [facility] Comment on above: Postponed from 08/01 (Declined at this time) Start: 10-20-2025 Diabetic foot examination Diabetic F oot Exam [facility] Start: 10-20-2025 Hemoglobin A1c measurement HbA1C [facility] Start: 10-08-2025 BP Controlled (<130/80) BP Controlle d (<130/80) [facility] Start: 10-04-2025 BP Controlled (<130/80) BP Controlle d (<130/80) [facility] Start: 10-04-2025 Complete blood count Hemoglobin/Mario Alberto tocrit [facility] Start: 10-04-2025 Creatinine measurement Serum Creatin ine [facility] Start: 09-22-2025 End: 09-22-2025 Anticoagulant drug monitoring 09/22/2025 9:30 AM EDT Anticoagulation Visit [facility] [place] [address] [place] [address] Wstr, [facility] [address] [place] [address] inr [facility] Comment on above: inr Start: 09-05-2025 [facility] Start: 08-01-2025 Influenza vaccination Influenza Vacc ine (#1) [facility] Start: 07-28-2025 Glaucoma screening Dilated Retinal E xam [facility] Start: 07-28-2025 End: 07-28-2025 Anticoagulant drug monitoring 07/28/2025 11:15 AM EDT Anticoagulation Visit [facility] [place] [address] [place] [address] Wstr, [facility] [place] [address] [place] [address] inr [facility] [place] Comment on above: inr Start: 07-27-2025 Annual PCP Team [employer] D[employer] Steward/Stewardess sharon Disease Visit Annual PCP Team Chronic Disease Visit [facility] Start: 06-30-2025 End: 06-30-2025 Anticoagulant drug monitoring 06/30/2025 11:15 AM EDT Anticoagulation Visit [facility] [place] [address] [place] [address] Wstr, Anticoag [facility] [place] [address] [place] [address] inr [facility] [place] Comment on above: inr Start: 06-01-2025 Covid-19 Vaccine () Covid-19 Vaccine () [facility] Start: 05-26-2025 End: 05-26-2025 Anticoagulant drug monitoring 05/26/2025 11:15 AM EDT Anticoagulation Visit [facility] [place] [address] [facility] [place] [address] Wstr, Anticoag [facility] [place] [address] [facility] [place] [address] inr [facility] [place] Comment on above: inr Start: 04-28-2025 End: 04-28-2025 Anticoagulant drug monitoring 04/28/2025 11:00 AM EDT Anticoagulation Visit [facility] [place] [address] [place] [address] [facility] [place] [address] [facility] [place] [address] inr [facility] [place] Comment on above: inr Start: 04-19-2025 Annual PCP Team [employer] D[employer] Steward/Stewardess sharon Disease Visit Annual PCP Team Chronic Disease Visit [facility] Start: 04-19-2025 Anxiety Screening Anxiety Screening [facility] Start: 04-19-2025 Depression Screening Depression Scre ening [facility] Start: 04-19-2025 Hemoglobin A1c measurement HbA1C [facility] Start: 04-19-2025 End: 07-19-2025 LIPID PANEL, NONFASTING [facility] Work Phone: Comment on above: Expected: 04/19/2025 , Expires: 07/19/2025 Start: 04-19-2025 End: 04-19-2025 Patient encounter procedure [facility] [place] Comment on above: 6 mo follow up Start: 04-01-2025 End: 04-01-2025 Anticoagulant drug monitoring 04/01/2025 10:30 AM EDT Anticoagulation Visit [facility] [place] [address] [place] [address] Wstr, Anticoag [facility] [place] [address] [place] [address] inr [facility] [place] Comment on above: inr Start: 03-20-2025 End: 05-03-2025 25-hydroxyvitamin D3 [Mass/volume] in Serum or Plasma VITAMIN D 25 HYDROXY Lab Routine Vitamin D deficiency Expected: 03/20/2025 (Approximate), Expires: 05/03/2025 [facility] Work Phone: Comment on above: Expected: 03/20/2025 (Approximate), Expires: 05/03/2025 Start: 03-20-2025 End: 05-03-2025 CBC W Auto Differential panel - Blood COMPLETE BLOOD COUNT AND DIFFERENTIAL Lab Routine Encounter for therapeutic drug monitoring Expected: 03/20/2025 (Approximate), Expires: 05/03/2025 [facility] Comment on above: Expected: 03/20/2025 (Approximate), Expires: 05/03/2025 Start: 03-20-2025 End: 05-03-2025 Comprehensive metabolic 2000 panel - Serum or Plasma COMPREHENSIVE METABOLIC PANEL Lab Routine Encounter for therapeutic drug monitoring Expected: 03/20/2025 (Approximate), Expires: 05/03/2025 [facility] Comment on above: Expected: 03/20/2025 (Approximate), Expires: 05/03/2025 Start: 03-20-2025 End: 05-03-2025 Hemoglobin A1c in Blood HEMOGLOBIN A1C Lab Routine Type 2 diabetes mellitus with stage 3a chronic kidney disease, without long-term current use of insulin (HCC) Expected: 03/20/2025 (Approximate), Expires: 05/03/2025 [facility] Comment on above: Expected: 03/20/2025 (Approximate), Expires: 05/03/2025 Start: 03-20-2025 End: 05-03-2025 Lipid 1996 panel - Serum or Plasma LIPID PANEL BASIC Lab Routine Mixed hyperlipidemia Expected: 03/20/2025 (Approximate), Expires: 05/03/2025 [facility] Comment on above: Expected: 03/20/2025 (Approximate), Expires: 05/03/2025 Start: 03-20-2025 End: 05-03-2025 Magnesium [Mass/volume] in Serum or Plasma MAGNESIUM Lab Routine Encounter for therapeutic drug monitoring Expected: 03/20/2025 (Approximate), Expires: 05/03/2025 [facility] Comment on above: Expected: 03/20/2025 (Approximate), Expires: 05/03/2025 Start: 03-20-2025 End: 06-19-2025 Microalbumin/Creatinine [Mass Ratio] in Urine ALBUMIN/CREATININE RATIO, URINE Lab Routine Type 2 diabetes mellitus with stage 3a chronic kidney disease, without long-term current use of insulin (HCC) Expected: 03/20/2025 (Approximate), Expires: 06/19/2025 [facility] Comment on above: Expected: 03/20/2025 (Approximate), Expires: 06/19/2025 Start: 03-20-2025 End: 05-03-2025 Parathyrin.intact [Mass/volume] in Serum or Plasma PTH INTACT Lab Routine Hypercalcemia Expected: 03/20/2025 (Approximate), Expires: 05/03/2025 [facility] Comment on above: Expected: 03/20/2025 (Approximate), Expires: 05/03/2025 Start: 03-20-2025 End: 05-03-2025 Thyrotropin [Units/volume] in Serum or Plasma THYROID STIMULATING HORMONE Lab Routine Acquired hypothyroidism Expected: 03/20/2025 (Approximate), Expires: 05/03/2025 [facility] Comment on above: Expected: 03/20/2025 (Approximate), Expires: 05/03/2025 Start: 03-19-2025 Complete blood count Hemoglobin/Mario Alberto tocrit [facility] Start: 03-19-2025 Creatinine measurement Serum Creatin ine [facility] Start: 03-19-2025 Hepatitis B screening Urine Al bumin:Creatinine Ratio [facility] Start: 03-19-2025 Hepatitis B surface antibody level LDL Cholesterol [facility] Start: 03-03-2025 End: 03-03-2025 Anticoagulant drug monitoring 03/03/2025 10:30 AM EDT Anticoagulation Visit [facility] [place] [address] [place] [address] Wstr, An[facility]ag [facility] [address] [place] [address] inr [facility] [place] Comment on above: inr Start: 02-10-2025 End: 02-10-2025 Anticoagulant drug monitoring 02/10/2025 10:00 AM EDT Anticoagulation Visit [facility] [place] [address] [place] [address] Wstr, Anticoag [facility] [address] [place] [address] inr [facility] [place] Comment on above: inr Start: 01-27-2025 End: 01-27-2025 Anticoagulant drug monitoring 01/27/2025 10:15 AM EST Anticoagulation Visit [facility] [place] [address] [place] [address] Wstr, [facility] [address] [place] [address] inr [facility] [place] Comment on above: inr Start: 01-13-2025 End: 01-13-2025 Anticoagulant drug monitoring 01/13/2025 10:15 AM EST Anticoagulation Visit [facility] [place] [address] [place] [address] Wstr, [facility] [address] [place] [address] inr [facility] [place] Comment on above: inr Start: 12-16-2024 End: 12-16-2024 Anticoagulant drug monitoring 12/16/2024 10:15 AM EST Anticoagulation Visit [facility] [place] [address] [place] [address] Wstr, Anticoag [facility] [address] [place] [address] inr [facility] [place] Comment on above: inr Start: 12-01-2024 Advance Directive Discussion Advance Directive Discussion [facility] Start: 11-18-2024 End: 11-18-2024 Anticoagulant drug monitoring 11/18/2024 10:00 AM EST Anticoagulation Visit [facility] [address] [place] [address] Wstr, [facility] [address] [place] [address] [facility] Comment on above: inr Start: 11-03-2024 End: 11-03-2024 Patient encounter procedure 11/03/2024 9:00 AM EST Office Visit Neurology [address] [place] [address] Roseann Elizabeth APRN.INSPECTOR AND MENDER [address] [place] [address] PATRICIA (obstructive sleep apnea) [G47.33] Neurology Comment on above: PATRICIA (obstructive sle ep apnea) [G47.33] Start: 10-20-2024 End: 10-20-2024 Anticoagulant drug monitoring 10/20/2024 9:15 AM EST Anticoagulation Visit [facility] [address] [place] [address] Wstr, [facility] [address] [place], [place] [address] inr - coming from appt with pcp- mrg [facility] Comment on above: inr - coming from ap pt with pcp- mrg Start: 10-20-2024 End: 10-20-2024 Patient encounter procedure 10/20/2024 8:40 AM EST Office Visit [facility] [place] [address] [place] [address] Jose De Jesus Harrington MD [address] [place] [address] 6 Month follow up [facility] [place] Comment on above: 6 Month follow up Start: 10-17-2024 Annual PCP Team [employer] Dining [employer] Steward/Stewardess sharon Disease Visit Annual PCP Team Chronic Disease Visit [facility] Start: 10-17-2024 BP Controlled (<130/80) BP Controlle d (<130/80) [facility] Start: 10-13-2024 BP Controlled (<130/80) BP Controlle d (<130/80) [facility] Start: 10-11-2024 End: 01-10-2025 25-hydroxyvitamin D3 [Mass/volume] in Serum or Plasma VITAMIN D 25 HYDROXY Lab Routine Vitamin D deficiency Expected: 10/11/2024, Expires: 01/10/2025 [facility] Comment on above: Expected: 10/11/2024 , Expires: 01/10/2025 Start: 10-11-2024 End: 01-10-2025 CBC W Auto Differential panel - Blood COMPLETE BLOOD COUNT AND DIFFERENTIAL Lab Routine Encounter for therapeutic drug monitoring Expected: 10/11/2024, Expires: 01/10/2025 [facility] Work Phone: Comment on above: Expected: 10/11/2024 , Expires: 01/10/2025 Start: 10-11-2024 End: 01-10-2025 Comprehensive metabolic 2000 panel - Serum or Plasma COMPREHENSIVE METABOLIC PANEL Lab Routine Encounter for therapeutic drug monitoring Expected: 10/11/2024, Expires: 01/10/2025 [facility] Comment on above: Expected: 10/11/2024 , Expires: 01/10/2025 Start: 10-11-2024 End: 01-10-2025 Hemoglobin A1c in Blood HEMOGLOBIN A1C Lab Routine Type 2 diabetes mellitus with stage 3a chronic kidney disease, without long-term current use of insulin (HCC) Expected: 10/11/2024, Expires: 01/10/2025 [facility] Comment on above: Expected: 10/11/2024 , Expires: 01/10/2025 Start: 10-11-2024 End: 01-10-2025 Lipid 1996 panel - Serum or Plasma LIPID PANEL BASIC Lab Routine Mixed hyperlipidemia Expected: 10/11/2024, Expires: 01/10/2025 [facility] Comment on above: Expected: 10/11/2024 , Expires: 01/10/2025 Start: 10-11-2024 End: 01-10-2025 Magnesium [Mass/volume] in Serum or Plasma MAGNESIUM Lab Routine Encounter for therapeutic drug monitoring Expected: 10/11/2024, Expires: 01/10/2025 [facility] Comment on above: Expected: 10/11/2024 , Expires: 01/10/2025 Start: 10-11-2024 End: 01-10-2025 Parathyrin.intact [Mass/volume] in Serum or Plasma PTH INTACT Lab Routine Hypercalcemia Expected: 10/11/2024, Expires: 01/10/2025 [facility] Comment on above: Expected: 10/11/2024 , Expires: 01/10/2025 Start: 10-11-2024 End: 01-10-2025 Thyrotropin [Units/volume] in Serum or Plasma THYROID STIMULATING HORMONE Lab Routine Acquired hypothyroidism Expected: 10/11/2024, Expires: 01/10/2025 [facility] Comment on above: Expected: 10/11/2024 , Expires: 01/10/2025 Start: 10-08-2024 End: 01-07-2025 Hemoglobin A1c in Blood HEMOGLOBIN A1C Lab Routine Type 2 diabetes mellitus with stage 3a chronic kidney disease, without long-term current use of insulin (HCC) Expected: 10/08/2024, Expires: 01/07/2025 [facility] Work Phone: Comment on above: Expected: 10/08/2024 , Expires: 01/07/2025 Start: 10-08-2024 End: 10-08-2024 Patient encounter procedure 10/08/2024 10:20 AM EST Office Visit [facility] [place] [address] [place] [address] Herbert Jay APRN.BUSINESS INITIATIVES MANAGER [address] [place] [address] follow up [facility] [place] Comment on above: follow up Start: 10-04-2024 End: 01-03-2025 Comprehensive metabolic 2000 panel - Serum or Plasma [facility] Comment on above: Expected: 10/04/2024 , Expires: 01/03/2025 Start: 10-04-2024 End: 01-03-2025 Thyrotropin [Units/volume] in Serum or Plasma [facility] Comment on above: Expected: 10/04/2024 , Expires: 01/03/2025 Start: 09-18-2024 Hemoglobin A1c measurement HbA1C [facility] Start: 09-16-2024 End: 09-16-2024 Anticoagulant drug monitoring 09/16/2024 9:45 AM EDT Anticoagulation Visit [facility] [place] [address] [place] [address] Wstr, Anticoag [facility] [address] [place] [address] inr [facility] [place] Comment on above: inr Start: 09-02-2024 End: 09-02-2024 Anticoagulant drug monitoring 09/02/2024 10:15 AM EDT Anticoagulation Visit [facility] [place] [address] [place] [address] [facility] [address] [place] [address] inr [facility] [place] Comment on above: inr Start: 09-01-2024 Annual PCP Team Railroad Dining Car Steward/Stewardess sharon Disease Visit Annual PCP Team Chronic Disease Visit [facility] Start: 09-01-2024 BP Controlled (<130/80) BP Controlle d (<130/80) [facility] Start: 09-01-2024 Complete blood count Hemoglobin/Mario Alberto tocrit [facility] Start: 09-01-2024 Creatinine measurement Serum Creatin ine [facility] Start: 09-01-2024 Hemoglobin/Hematocrit Hemoglobin/Hem atocrit [facility] Start: 09-01-2024 Hepatitis B surface antibody level LDL Cholesterol [facility] Start: 09-01-2024 Serum Creatinine Serum Creatinine Cl [facility] Start: 08-18-2024 End: 08-18-2024 Anticoagulant drug monitoring 08/18/2024 9:00 AM EDT Anticoagulation Visit [facility] [place] [address] [place] [address] Wstr, Anticoag [facility] [place] [address] [place] [address] inr [facility] [place] Comment on above: inr Start: 08-05-2024 End: 08-05-2024 Anticoagulant drug monitoring 08/05/2024 10:00 AM EDT Anticoagulation Visit [facility] [place] [address] [place] [address] Wstr, Anticoag [facility] [address] [place] [address] inr [facility] [place] Comment on above: inr Start: 08-01-2024 Covid-19 Vaccine ( season) Covid-19 Vaccine () [facility] Start: 08-01-2024 Covid-19 Vaccine () Covid-19 Vaccine () [facility] Start: 08-01-2024 Influenza vaccination Influenza Vacc ine (#1) [facility] Start: 07-29-2024 End: 07-29-2024 Anticoagulant drug monitoring 07/29/2024 10:15 AM EDT Anticoagulation Visit [facility] [place] [address] [place] [address] Wstr, Anticoag [facility] [address] [place] [address] inr [facility] Comment on above: inr Start: 07-27-2024 Colonoscopy COLONOSCOPY [facility] Start: 07-27-2024 COLORECTAL CANCER SCREENING COLORECTAL CANCER SCREENING [facility] Start: 07-01-2024 End: 07-01-2024 Anticoagulant drug monitoring 07/01/2024 10:15 AM EDT Anticoagulation Visit [facility] [address] [place] [address] Wstr, Anticoag [facility] [address] [facility] [place] [address] inr [facility] Comment on above: inr Start: 06-19-2024 Glaucoma screening Dilated Retinal E xam [facility] Start: 06-19-2024 Hepatitis C antibody , confirmatory test DILATED RETINAL EXAM [facility] Start: 06-17-2024 ANNUAL PCP TEAM PLASTICS SCIENTIST SHARON DISEASE VISIT ANNUAL PCP TEAM CHRONIC DISEASE VISIT [facility] Start: 06-17-2024 BP CONTROLLED (<130/80) BP CONTROLLE D (<130/80) [facility] Start: 06-04-2024 HEMOGLOBIN/HEMATOCRIT HEMOGLOBIN/HEM ATOCRIT [facility] Start: 06-04-2024 SERUM CREATININE SERUM CREATININE [facility] Start: 05-27-2024 End: 05-27-2024 Anticoagulant drug monitoring 05/27/2024 10:15 AM EDT An[facility] [place] [address] [place] [address] Wstr, Anticoag [facility] [place] [address] [place] [address] inr [facility] [place] Comment on above: inr Start: 04-29-2024 End: 04-29-2024 Anticoagulant drug monitoring 04/29/2024 10:00 AM EDT Anticoagulation Visit [facility] [place] [address] [place] [address] Wstr, [facility] [place] [address] [place] [address] inr [facility] [place] Comment on above: inr Start: 04-22-2024 SERUM CREATININE SERUM CREATININE [facility] Start: 04-19-2024 End: 04-19-2024 Patient encounter procedure 04/19/2024 2:00 PM EDT Office Visit [facility] [place] [address] [place] [address] Olimpia Gomez APRN.INSPECTOR AND MENDER [address] [place] [address] 6 Month follow up [facility] [place] Comment on above: 6 Month follow up Start: 04-16-2024 End: 07-16-2024 25-hydroxyvitamin D3 [Mass/volume] in Serum or Plasma VITAMIN D 25 HYDROXY Lab Routine Vitamin D deficiency Hypercalcemia Expected: 04/16/2024 (Approximate), Expires: 07/16/2024 [facility] Work Phone: Comment on above: Expected: 04/16/2024 (Approximate), Expires: 07/16/2024 Start: 04-16-2024 End: 07-16-2024 ALBUMIN/CREAT RATIO RND UR ALBUMIN/CREAT RATIO RND UR Lab Routine Type 2 diabetes mellitus with stage 3a chronic kidney disease, without long-term current use of insulin (HCC) Expected: 04/16/2024 (Approximate), Expires: 07/16/2024 [facility] Work Phone: Comment on above: Expected: 04/16/2024 (Approximate), Expires: 07/16/2024 Start: 04-16-2024 End: 07-16-2024 CBC panel - Blood by Automated count CBC Lab Routine Type 2 diabetes mellitus with stage 3a chronic kidney disease, without long-term current use of insulin (HCC) Hypercalcemia Essential hypertension Expected: 04/16/2024 (Approximate), Expires: 07/16/2024 [facility] Work Phone: Comment on above: Expected: 04/16/2024 (Approximate), Expires: 07/16/2024 Start: 04-16-2024 End: 07-16-2024 Comprehensive metabolic 2000 panel - Serum or Plasma COMP METABOLIC PANEL Lab Routine Type 2 diabetes mellitus with stage 3a chronic kidney disease, without long-term current use of insulin (HCC) Essential hypertension Expected: 04/16/2024 (Approximate), Expires: 07/16/2024 [facility] Work Phone: Comment on above: Expected: 04/16/2024 (Approximate), Expires: 07/16/2024 Start: 04-16-2024 End: 07-16-2024 Hemoglobin A1c in Blood HGB A1C Lab Routine Type 2 diabetes mellitus with stage 3a chronic kidney disease, without long-term current use of insulin (HCC) Expected: 04/16/2024 (Approximate), Expires: 07/16/2024 [facility] Work Phone: Comment on above: Expected: 04/16/2024 (Approximate), Expires: 07/16/2024 Start: 04-16-2024 End: 07-16-2024 Lipid 1996 panel - Serum or Plasma LIPID PANEL BASIC Lab Routine Type 2 diabetes mellitus with stage 3a chronic kidney disease, without long-term current use of insulin (HCC) Expected: 04/16/2024 (Approximate), Expires: 07/16/2024 [facility] Work Phone: Comment on above: Expected: 04/16/2024 (Approximate), Expires: 07/16/2024 Start: 04-16-2024 End: 07-16-2024 Magnesium [Mass/volume] in Serum or Plasma MAGNESIUM BLD Lab Routine Hypomagnesemia Expected: 04/16/2024 (Approximate), Expires: 07/16/2024 [facility] Work Phone: Comment on above: Expected: 04/16/2024 (Approximate), Expires: 07/16/2024 Start: 04-16-2024 End: 07-16-2024 Thyrotropin [Units/volume] in Serum or Plasma TSH BLD Lab Routine Acquired hypothyroidism Expected: 04/16/2024 (Approximate), Expires: 07/16/2024 [facility] Work Phone: Comment on above: Expected: 04/16/2024 (Approximate), Expires: 07/16/2024 Start: 04-16-2024 End: 04-16-2024 ambulatory 04/16/2024 9:30 AM EDT Results Only [facility] [address] [place] [address] [facility] Start: 03-24-2024 HEMOGLOBIN/HEMATOCRIT HEMOGLOBIN/HEM ATOCRIT [facility] Start: 03-24-2024 Hepatitis B surface antibody level LDL CHOLESTEROL [facility] Start: 03-24-2024 SERUM CREATININE SERUM CREATININE Cl [facility] Start: 03-20-2024 3 comp foot exam completed DIABETIC FOOT EXAM [facility] Start: 03-20-2024 BP CONTROLLED (<130/80) BP CONTROLLE D (<130/80) [facility] Start: 03-20-2024 Diabetic foot examination Diabetic F oot Exam [facility] Start: 03-05-2024 End: 03-05-2024 Anticoagulant drug monitoring 03/05/2024 10:15 AM EDT Anticoagulation Visit [facility] [place] [address] [place] [address] Wstr, Anticoag [facility] [place] [address] [place] [address] inr [facility] [place] Comment on above: inr Start: 03-02-2024 Hemoglobin A1c measurement HbA1C [facility] Start: 03-02-2024 Hemoglobin A1c/Hemoglobin.total in Blood HbA1C [facility] Start: 01-20-2024 Covid-19 Vaccine () Covid-19 Vaccine () [facility] Start: 12-18-2023 ANNUAL PCP TEAM PLASTICS SCIENTIST SHARON DISEASE VISIT ANNUAL PCP TEAM CHRONIC DISEASE VISIT [facility] Start: 12-18-2023 BP CONTROLLED (<130/80) BP CONTROLLE D (<130/80) [facility] Start: 12-18-2023 SHINGRIX VACCINE (2 of 3) AMEZQUITA GRIX VACCINE (2 of 3) [facility] Comment on above: Postponed from 04/09 (Declined at this time) Start: 12-17-2023 HEMOGLOBIN/HEMATOCRIT HEMOGLOBIN/HEM ATOCRIT [facility] Start: 12-17-2023 Hepatitis B screening URINE AL BUMIN:CREATININE RATIO [facility] Start: 12-17-2023 SERUM CREATININE SERUM CREATININE Cl [facility] Start: 12-01-2023 Advance Directive Discussion Advance Directive Discussion [facility] Start: 12-01-2023 Behavioral Health Screening Behavioral Health Screening [facility] Start: 12-01-2023 Depression Assessment Depression Ass essment [facility] Start: 10-21-2023 Hepatitis B surface antibody level LDL CHOLESTEROL [facility] Start: 10-09-2023 Polysomnography [facility] Start: 10-09-2023 Patient discharge [facility] Start: 10-06-2023 [facility] Start: 10-04-2023 Measuring intake and output [facility] Start: 09-26-2023 Application of ice collar, cap or bag [facility] Start: 09-26-2023 Wound care [facility] Start: 09-26-2023 Referral to service [facility] Start: 09-26-2023 Admission procedure [facility] Start: 09-26-2023 Patient referral to dietitian [facility] Start: 09-26-2023 Vital signs measurements [facility] Start: 09-26-2023 End: 09-26-2023 [facility] Start: 09-26-2023 Referral to occupati onal therapist [facility] Start: 09-26-2023 Patient discharge [facility] Start: 09-25-2023 End: 09-26-2023 [facility] Start: 09-25-2023 Assessment of risk o f venous thromboembolism [facility] Start: 09-25-2023 Insertion of cathete r into peripheral vein [facility] Start: 09-25-2023 Oxygen therapy [facility] Start: 09-25-2023 Providing care accor ding to standard [facility] Start: 09-25-2023 Provision of activit y privileges [facility] Start: 09-25-2023 Referral to occupati onal therapist [facility] Start: 09-25-2023 Referral to service [facility] Start: 09-25-2023 Following clinical pathway protocol [facility] Start: 09-25-2023 Verification routine [facility] Start: 09-25-[address] [facility] Start: 09-25-2023 Admission procedure [facility] Start: 09-25-2023 Hospital admission, emergency, from emergency room, medical nature [facility] Start: 09-25-2023 Patient referral to dietitian [facility] Start: 09-23-2023 Hemoglobin A1c/Hemoglobin.total in Blood HBA1C [facility] Start: 08-01-2023 Covid-19 Vaccine ( season) Covid-19 Vaccine () [facility] Start: 08-01-2023 [facility] Start: 07-31-2023 ANNUAL PCP TEAM PLASTICS SCIENTIST SHARON DISEASE VISIT ANNUAL PCP TEAM CHRONIC DISEASE VISIT [facility] Start: 07-31-2023 BP CONTROLLED (<130/80) BP CONTROLLE D (<130/80) [facility] Start: 06-19-2023 Hepatitis C antibody , confirmatory test DILATED RETINAL EXAM [facility] Start: 06-16-2023 Hemoglobin A1c/Hemoglobin.total in Blood HBA1C [facility] Start: 06-12-2023 Adult depression screening assessment DEPRESSION SCREENING [facility] Start: 04-30-2023 Hepatitis B surface antibody level LDL CHOLESTEROL [facility] Start: 04-01-2023 End: 06-01-2023 Comprehensive metabolic 2000 panel - Serum or Plasma COMP METABOLIC PANEL Lab Routine Hyperkalemia Hypercalcemia Elevated serum creatinine Expected: 04/01/2023, Expires: 06/01/2023 [facility] Work Phone: Comment on above: Expected: 04/01/2023 , Expires: 06/01/2023 Start: 01-26-2023 COVID-19 VACCINE (6 - Moderna series) COVID-19 VACCINE (6 - Moderna series) [facility] Start: 12-19-2022 Hemoglobin A1c/Hemoglobin.total in Blood HBA1C [facility] Start: 12-18-2022 3 comp foot exam completed DIABETIC FOOT EXAM [facility] Start: 12-18-2022 ANNUAL PCP TEAM PLASTICS SCIENTIST SHARON DISEASE VISIT ANNUAL PCP TEAM CHRONIC DISEASE VISIT [facility] Start: 12-18-2022 BP CONTROLLED (<130/80) BP CONTROLLE D (<130/80) [facility] Start: 12-18-2022 HEMOGLOBIN/HEMATOCRIT HEMOGLOBIN/HEM ATOCRIT [facility] Start: 12-18-2022 Hepatitis B screening URINE AL BUMIN:CREATININE RATIO [facility] Start: 12-18-2022 SERUM CREATININE SERUM CREATININE Cl [facility] Start: 12-02-2022 SHINGRIX VACCINE (2 of 3) AMEZQUITA GRIX VACCINE (2 of 3) [facility] Comment on above: Postponed from 04/09 (Insurance Coverage) Start: 08-10-2022 End: 10-10-2022 Bacteria identified in Urine by Culture URINE CULTURE Microbiology Routine Other microscopic hematuria UTI symptoms Expected: 08/10/2022, Expires: 10/10/2022 [facility] Work Phone: Comment on above: Expected: 08/10/2022 , Expires: 10/10/2022 Start: 08-10-2022 End: 10-10-2022 Urinalysis complete panel - Urine URINALYSIS, WITH MICROSCOPIC Lab Routine Other microscopic hematuria UTI symptoms Expected: 08/10/2022, Expires: 10/10/2022 [facility] Work Phone: Comment on above: Expected: 08/10/2022 , Expires: 10/10/2022 Start: 08-01-2022 Influenza vaccination INFLUENZA (#1) [facility] Start: 06-26-2022 Hepatitis C antibody , confirmatory test DILATED RETINAL EXAM [facility] Start: 06-18-2022 End: 06-06-2023 CBC W Auto Differential panel - Blood CBC + DIFF Lab Routine Type 2 diabetes mellitus with stage 3a chronic kidney disease, without long-term current use of insulin (HCC) Expected: 06/18/2022, Expires: 06/06/2023 [facility] Work Phone: Comment on above: Expected: 06/18/2022 , Expires: 06/06/2023 Start: 06-18-2022 End: 06-06-2023 Comprehensive metabolic 2000 panel - Serum or Plasma COMP METABOLIC PANEL Lab Routine Type 2 diabetes mellitus with stage 3a chronic kidney disease, without long-term current use of insulin (HCC) Expected: 06/18/2022, Expires: 06/06/2023 [facility] Work Phone: Comment on above: Expected: 06/18/2022 , Expires: 06/06/2023 Start: 06-18-2022 End: 06-06-2023 Hemoglobin A1c in Blood [facility] Work Phone: Comment on above: Expected: 06/18/2022 , Expires: 08/18/2022 Expected: 06/18/2022 , Expires: 06/06/2023 Start: 06-18-2022 End: 06-06-2023 Thyrotropin [Units/volume] in Serum or Plasma TSH BLD Lab Routine Type 2 diabetes mellitus with stage 3a chronic kidney disease, without long-term current use of insulin (HCC) Expected: 06/18/2022, Expires: 06/06/2023 [facility] Work Phone: Comment on above: Expected: 06/18/2022 , Expires: 06/06/2023 Start: 06-17-2022 Hemoglobin A1c/Hemoglobin.total in Blood HBA1C [facility] Start: 06-12-2022 COVID-19 VACCINE (5 - Booster for Moderna series) COVID-19 VACCINE (5 - Booster for Moderna series) [facility] Start: 2022 RSV Vaccine (1 - 1-d ose 75+ series) RSV Vaccine (1 - 1-dose 75+ series) [facility] Start: 04-18-2022 SHINGRIX VACCINE (2 of 3) AMEZQUITA GRIX VACCINE (2 of 3) [facility] Comment on above: Postponed from 04/09 (Declined at this time) Start: 04-11-2022 Adult depression screening assessment DEPRESSION SCREENING [facility] Start: 04-10-2022 Hepatitis B surface antibody level LDL CHOLESTEROL [facility] Start: 12-01-2021 ADVANCE DIRECTIVE DISCUSSION ADVANCE DIRECTIVE DISCUSSION [facility] Start: 12-01-2021 DEPRESSION ASSESSMENT DEPRESSION ASS ESSMENT [facility] Start: 06-18-2019 FECAL OCCULT BLOOD FECAL OCCULT BLOO D [facility] Start: 04-09-2012 SHINGRIX VACCINE (2 of 3) AMEZQUITA GRIX VACCINE (2 of 3) [facility] Start: 03-31-2012 Medicare Annual Well ness Visit Medicare Annual Wellness Visit [facility] Start: 2007 Hepatitis B Vaccine (1 of 3 - Risk 3-dose series) Hepatitis B Vaccine (1 of 3 - Risk 3-dose series) [facility] Start: 2007 RSV Vaccine (1 - 1-d ose 60+ series) RSV Vaccine (1 - 1-dose 60+ series) [facility] Start: 1992 COLOGUARD (FIT-DNA) COLOGUARD (FIT-D NA) [facility] Start: [address] COLONOGRAPHY [facility] Start: 1992 SIGMOIDOSCOPY SIGMOIDOSCOPY [facility] Start: 1965 BP CONTROLLED (<130/80) BP CONTROLLE D (<130/80) [facility] End: 12-18-2022 ALBUMIN/CREAT RATIO RND UR ALBUMIN/CREAT RATIO RND UR Lab Routine Controlled type 2 diabetes mellitus with stage 3 chronic kidney disease, without long-term current use of insulin (HCC) Encounter for long-term current use of medication 3 Occurrences starting 12/18/2021 until 12/18/2022, 1 completed [facility] Work Phone: Comment on above: 3 Occurrences [...] Occurrences starting 12/18/2021 until 12/18/2022, 1 completed [facility] Work Phone: Comment on above: 3 Occurrences starti ng 12/18/2021 until 12/18/2022, 1 completed End: 12-18-2022 CBC panel - Blood by Automated count CBC Lab Routine 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 DIFFICILE PCR Lab Routine Diarrhea, unspecified type Ordered: 10/04/2024 [facility] Work Phone: Comment on above: Ordered: 10/04/2024 Complex cystometrogram [facility] End: 05-07-2024 DXA-AXIAL SKELETON DXA-AXIAL SKELETON Radiology Routine Encounter for screening for osteoporosis Asymptomatic postmenopausal status 1 Occurrences starting 04/08/2023 until 05/07/2024 [facility] Work Phone: Comment on above: 1 Occurrences starti ng 04/08/2023 until 05/07/2024 ENTERIC BACTERIAL PA KI BY PCR ENTERIC BACTERIAL PANEL BY PCR Lab Routine Diarrhea, unspecified type Ordered: 10/04/2024 [facility] Comment on above: Ordered: 10/04/2024 FECAL LACTOFERRIN/LEUKOCYTES FECAL LACTOFERRIN/LEUKOCYTES Lab Routine Diarrhea, unspecified type Ordered: 10/04/2024 [facility] Comment on above: Ordered: 10/04/2024 Giardia lamblia+Cryptosporidium sp Ag [Presence] in Stool by Immunoassay CRYPTOSPORIDIUM AND GIARDIA ANTIGENS BY EIA Microbiology Routine Diarrhea, unspecified type Ordered: 10/04/2024 [facility] Comment on above: Ordered: 10/04/2024 End: 12-18-2022 Hemoglobin A1c/Hemoglobin.total in Blood HGB A1C Lab Routine Controlled type 2 diabetes mellitus with stage 3 chronic kidney disease, without long-term current use of insulin (HCC) Encounter for long-term current use of medication 3 Occurrences starting 12/18/2021 until 12/18/2022, 1 completed [facility] Work Phone: Comment on above: 3 Occurrences starti ng 12/18/2021 until 12/18/2022, 1 completed INR in Blood by Coagulation assay [facility] End: 09-26-2023 INR in Platelet poor plasma by Coagulation assay INR (POC) Lab Routine History of pulmonary embolus (PE) Personal history of DVT (deep vein thrombosis) Once per month for 99 Occurrences starting 10/02/2022 until 09/26/2023 [facility] Work Phone: Comment on above: Once per month for 9 9 Occurrences starting 10/02/2022 until 09/26/2023 End: 11-18-2025 INR in Platelet poor plasma by Coagulation assay INR (POC) Lab Routine History of pulmonary embolus (PE) Personal history of DVT (deep vein thrombosis) Once per month for 99 Occurrences starting 11/22/2024 until 11/18/2025 [facility] Work Phone: Comment on above: Once per month for 9 9 Occurrences starting 11/22/2024 until 11/18/2025 End: 12-18-2022 Magnesium [Mass/volume] in Serum or Plasma MAGNESIUM BLD Lab Routine Hypomagnesemia Encounter for long-term current use of medication 3 Occurrences starting 12/18/2021 until 12/18/2022, 1 completed [facility] Work Phone: Comment on above: 3 Occurrences starti ng 12/18/2021 until 12/18/2022, 1 completed NM Heart Views W str ess and W radionuclide IV [facility] Patient Education [facility] Work Phone: Patient referral [facility] Work Phone: End: 09-26-2023 PT panel - Platelet poor plasma by Coagulation assay PROTHROMBIN TIME/PT Lab STAT History of pulmonary embolus (PE) Personal history of DVT (deep vein thrombosis) Once per month for 99 Occurrences starting 10/02/2022 until 09/26/2023 [facility] Work Phone: Comment on above: Once per month for 9 9 Occurrences starting 10/02/2022 until 09/26/2023 End: 11-18-2025 PT panel - Platelet poor plasma by Coagulation assay PROTHROMBIN TIME Lab STAT History of pulmonary embolus (PE) Personal history of DVT (deep vein thrombosis) Once per month for 99 Occurrences starting 11/22/2024 until 11/18/2025 [facility] Comment on above: Once per month for 9 9 Occurrences starting 11/22/2024 until 11/18/2025 End: 12-18-2022 T4 FREE/FREE THYROX T4 FREE/FREE THYROX Lab Routine Acquired hypothyroidism Encounter for long-term current use of medication 3 Occurrences starting 12/18/2021 until 12/18/2022, 1 completed [facility] Work Phone: Comment on above: 3 Occurrences starti ng 12/18/2021 until 12/18/2022, 1 completed End: 12-18-2022 Thyrotropin [Units/volume] in Serum or Plasma TSH BLD Lab Routine Acquired hypothyroidism Encounter for long-term current use of medication 3 Occurrences starting 12/18/2021 until 12/18/2022, 1 completed [facility] Work Phone: Comment on above: 3 Occurrences starti ng 12/18/2021 until 12/18/2022, 1 completed [facility] End: 12-18-2022 VITAMIN D 25 HYDROXY VITAMIN D 25 HYDROXY Lab Routine Vitamin D deficiency Encounter for long-term current use of medication 3 Occurrences starting 12/18/2021 until 12/18/2022, 1 completed [facility] Work Phone: Comment on above: 3 Occurrences starti ng 12/18/2021 until 12/18/2022, 1 completed [facility] Immunization Date Immunization Notes Care Provider Juan schwab 12-02-2024 COVID-19 vaccine, ag e 12+ yr (PFIZER-BIONTECH COMIRNATY) Anticoag [place] Work Phone: [facility] 12-02-2024 Seasonal trivalent influenza vaccine, adjuvanted, preservative free Olimpia Gomez APRN.CNP Work Phone: [facility] 12-02-2024 influenza virus vaccine, unspecified formulation Anticoag [facility] Work Phone: [facility] 10-05-2024 influenza, high dose seasonal, preservative-free Jose De Jesus Harrington MD Work Phone: [facility] 09-19-2023 COVID-19 vaccine, ag e 12+ yr, season (PFIZER-BIONTECH) Immunization [place] Work Phone: [facility] Work Phone: 09-19-2023 influenza (HD-IIV4) vaccine, age 65+ yr, high dose, quadrivalent, PF (FLUZONE HIGH-DOSE) Immunization [place] Work Phone: [facility] Work Phone: 09-19-2023 influenza virus vaccine, unspecified formulation Anticoag [place] Work Phone: [facility] 03-05-2023 tetanus toxoid, redu zana diphtheria toxoid, and acellular pertussis vaccine, adsorbed [facility] 09-25-2022 COVID-19 booster vaccine, age 12+ yr, bivalent ([employer]) Jose De Jesus Harrington MD Work Phone: [facility] Work Phone: 09-25-2022 influenza (aIIV4) vaccine, age 65+ yr, quadrivalent, PF (FLUAD QUAD) Anticoag [facility] Work Phone: [facility] Work Phone: 09-25-2022 influenza, injectabl e, quadrivalent, contains preservative Jose De Jesus Harrington MD Work Phone: [facility] Work Phone: 09-25-2022 influenza virus vaccine, unspecified formulation Anticoag [place] Work Phone: [facility] 09-11-2021 influenza, high dose seasonal, preservative-free Anticoag [facility] Work Phone: [facility] Work Phone: 09-11-2021 influenza, high-dose , quadrivalent vaccine (FLUZONE HIGH DOSE QUADRIVALENT) Anticoag [facility] Work Phone: [facility] 03-09-2021 COVID-19 vaccine, fu ll dose (MODERNA) Anticoag [facility] Work Phone: [facility] Work Phone: 02-09-2021 COVID-19 vaccine, fu ll dose (MODERNA) Anticoag [place] Work Phone: [facility] Work Phone: 09-12-2020 influenza, high-dose , quadrivalent vaccine (FLUZONE HIGH DOSE QUADRIVALENT) Anticoag [place] Work Phone: [facility] 09-14-2019 influenza, high dose seasonal, preservative-free Anticoag [facility] Work Phone: [facility] Work Phone: 09-14-2019 Seasonal trivalent influenza vaccine, adjuvanted, preservative free Olimpia Gomez APRN.INSPECTOR AND MENDER Work Phone: [facility] 10-09-2018 influenza virus vaccine, unspecified formulation Anticoag [place] Work Phone: [facility] 07-15-2017 tetanus toxoid, redu zana diphtheria toxoid, and acellular pertussis vaccine, adsorbed Anticoag Wstr Work Phone: [facility] Work Phone: 12-17-2016 influenza, high dose seasonal, preservative-free Anticoag Wstr Work Phone: [facility] 08-31-[address] Jose De Jesus Harrington Work Phone: [facility] 08-31-2016 influenza, high dose seasonal, preservative-free Anticoag Wstr Work Phone: [facility] 12-12-2015 pneumococcal conjuga te vaccine, 13 valent Anticoag Wstr Work Phone: [facility] 09-09-2015 influenza, high dose seasonal, preservative-free Anticoag Wstr Work Phone: [facility] 08-31-[address] Jose De Jesus Harrington Work Phone: [facility] 08-31-2013 influenza, high dose seasonal, preservative-free Anticoag Wstr Work Phone: [facility] 08-23-2013 influenza virus vaccine, unspecified formulation Anticoag Wstr Work Phone: [facility] 08-19-2012 pneumococcal polysaccharide vaccine, 23 valent Anticoag Wstr Work Phone: [facility] Work Phone: 02-13-2012 zoster vaccine, live Anticoa g Wstr Work Phone: [facility] 08-27-2010 influenza virus vaccine, unspecified formulation Anticoag Wstr Work Phone: [facility] Work Phone: 08-25-2009 influenza virus vaccine, unspecified formulation [facility] Work Phone: [facility] Work Phone: 08-31-2008 pneumococcal polysaccharide vaccine, 23 valent [facility] Work Phone: [facility] 08-31-[address] Montserrat Harrington Work Phone: [facility] Work Phone: 08-31-2008 pneumococcal vaccine , unspecified formulation [facility] 10-09-2007 influenza virus vaccine, unspecified formulation [facility] Work Phone: [facility] Work Phone: 07-31-2007 tetanus and diphther ia toxoids, adsorbed, preservative free, for adult use (2 Lf of tetanus toxoid and 2 Lf of diphtheria toxoid) [facility] Work Phone: [facility] Work Phone: Payers Date Payer Category Payer Self-pay [id number] 2025 Unknown [id number] 2016 Private Health Insurance HUY FRANKEL [id number] 2016 Unknown [employer] SUPPLEMENT [id number] 2016-Present [phone] [address] [place] [address] Indemnity [id number] 2016 Unknown [employer] SUPPLEMENT [id number] 2016-2022 [address] [place] [address] Indemnity [id number] 2016 Unknown [id number] 2016 Unknown [id number] 2012 Medicare MEDICARE MEDICAR E A AND B [id number] 2012-Present [phone] [place] [address] Medicare [id number] 2012 Medicare [id number] 2012 Medicare [id number] Medicare [id number] Unknown [id number] Unknown [id number] Unknown [id number] Unknown [id number] Unknown [id number] Unknown [id number] Unknown [id number] Unknown [id number] Unknown [id number] Social History Date Type Detail Facility Start: 04-24-2011 End: 09-05-2025 Tobacco smoking status NHIS Ex-smoker [facility] Start: 12-01-1959 End: 12-01-1969 History of tobacco use Current smoker [facility] Start: 12-01-1959 End: 12-01-1969 History of tobacco use Cigarette Smoker [facility] Start: 12-18-2021 End: 04-19-2025 Alcohol intake Current drinker of alcohol (finding) [facility] Start: 01-06-2020 End: 12-12-2022 History SDOH Alcohol Frequency 2 [facility] Start: 01-06-2020 End: 12-12-2022 History SDOH Alcohol Std Drinks 1 [facility] Start: 07-20-2012 History SDOH Alcohol Comment Rarely [facility] Start: 01-06-2020 End: 12-12-2022 History SDOH Social Connections Phone 5 [facility] Start: 01-06-2020 End: 12-12-2022 History SDOH Social Connections Get Together 4 [facility] Start: 01-06-2020 End: 12-12-2022 History SDOH Social Connections Yarsanism 3 [facility] Start: 01-06-2020 Education 12 [facility] Start: 1945 Sex Assigned At Not on file C [facility] Start: 02-12-2022 End: 08-29-2022 Exposure to SARS-CoV-2 (event) Not sure [facility] Start: 04-24-2022 End: 09-26-2023 Tobacco smoking status AZIS Unknown if ever smoked [facility] Start: 05-11-2014 None [place] [facility] Start: 05-11-2014 Alone [facility] Start: 10-25-2019 Non-smoker [facility] Start: 1945 Sex Assigned At Female W [facility] Start: 04-24-2011 End: 04-03-2023 Cigarettes smoked current (pack per day) - Reported 1 [facility] Start: 04-24-2011 End: 10-04-2024 Tobacco use and exposure Smokeless tobacco non-user [facility] Work Phone: Start: 07-08-2022 End: 07-18-2022 Exposure to SARS-CoV-2 (event) Unable to assess [facility] Work Phone: Start: 12-12-2022 End: 04-03-2023 Social connection and isolation panel [facility] Do you belong to any clubs or organizations such as temple groups, [email or web address], [employer] or athleSPOC Medical groups, or school groups? No [facility] Are you now , , , , never or living with a partner? [facility] How often to you hav e a drink containing alcohol? Monthly or less [facility] How many standard dr inks containing alcohol do you have on a typical day? 1 or 2 [facility] How often do you hav e 6 or more drinks on 1 occasion? Never [facility] How hard is it for y ou to pay for the very basics like food, housing, medical care, and heating Not very hard [facility] Start: 11-01-2012 Adult Depression Scr eening Assessment 2 [facility] Work Phone: Do you feel stress - tense, restless, nervous, or anxious, or unable to sleep at night because your mind is troubled all the time - these days [OSQ] Only a little [facility] (I/We) worried wheth er (my/our) food would run out before (I/we) got money to buy more. Never true [facility] Do you belong to any clubs or organizations such as temple groups, [email or web address], [employer] or athletic groups, or school groups? Yes [facility] Do you feel stress - tense, restless, nervous, or anxious, or unable to sleep at night because your mind is troubled all the time - these days [OSQ] Not at all [facility] Start: 02-24-2025 Sex Female (finding) [facility] Medical Equipment Procedure Code Equipment Code Equipment Original Text Equipment Identifier Dates [id number], [id number] Start: 12-12-2015 Comment on above: Easy Max [...] Assessment Result Facility 10-09-2023 Functional status Chair [facility] Work Phone: 10-08-2023 Functional status Assistive Lillie abel Fournier [facility] Work Phone: 10-06-2023 Functional status Tolerates Activity Well [facility] Work Phone: 09-26-2023 Functional status Chair [facility] Work Phone: 06-06-2015 Are you deaf, or do you have serious difficulty hearing No 06/06/2015 8:01 AM Liliya Smith LPN No [facility] 06-06-2015 Are you blind, or do you have serious difficulty seeing, even when wearing glasses No 06/06/2015 8:01 AM Liliya Smith LPN No [facility] 06-06-2015 Do you have serious difficulty walking or climbing stairs No 06/06/2015 8:01 AM Liliya Smith LPN No [facility] 06-06-2015 Do you have difficul ty dressing or bathing No 06/06/2015 8:01 AM Liliya Smith LPN No [facility] 06-06-2015 Because of a physica l, mental, or emotional condition, do you have difficulty doing errands alone such as visiting a physician's office or shopping No 06/06/2015 8:01 AM Liliya Smith LPN No [facility] Mental Status Date Assessment Result Facility 09-05-2025 Cognitive function Awake [facility] Work Phone: 10-09-2023 Cognitive function Voice/Name [facility] Work Phone: 10-08-2023 Cognitive function Appropriate;Cooperativ [facility] Work Phone: 09-26-2023 Cognitive function Voice/Name [facility] Work Phone: 06-06-2015 Because of a physica l, mental, or emotional condition, do you have serious difficulty concentrating, remembering, or making decisions No 06/06/2015 8:01 AM Liliya Smith LPN No [facility] Clinical Notes 02-21-2014 to 09-22-2025 Severino Healy RN - 08/16/2025 4:44 PM Severino King RN - 08/16/2025 1:09 PM EDT Note Date & Type Note Facility 09-22-2025 Note HNO ID: [id number] Author: HERBERT JAY APRN.BUSINESS INITIATIVES MANAGER Service: ? Author Type: Nurse Specialist Type: Progress Notes Filed: 09/22/2025 16:19 Note Text: Continue with Coumadin dose unchanged and check INR in 4 weeks. [facility] 09-22-2025 Note HNO ID: [id number] Author: SEVERINO HEALY RN Service: ? Author Type: Registered Nurse Type: Progress Notes Filed: 09/22/2025 16:19 Note Text: patient had inr completed at [facility] patients inr is 2.1 (patients inr range [...] verbalized understanding. Presently scheduled in 4 weeks (10/20/25) for follow up INR. [facility] 09-09-2025 Note HNO ID: [id number] Author: HERBERT JAY APRN.BUSINESS INITIATIVES MANAGER Service: ? Author Type: Nurse Specialist Type: Progress Notes Filed: 09/09/2025 11:33 Note Text: SUBJECTIVE: Medicare Annual Wellness Visit Never done Shingrix Vaccine(2 of 3) due on 04/09/2012 RSV Vaccine(1 - 1-dose 75+ series) Never done Covid-19 Vaccine( season) due on 08/01/2025 JACKSON Reid is a 80 year old female. 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 She was seen at [facility] on JulySeptember 05, 2025 for dizziness. She underwent CT of brain and head without contrast that showed no acute intercranial abnormality. She was advised she had peripheral vertigo. Notes indicated this should resolve spontaneously return back to correct location. Advised to stop meclizine and switch to Valium for improved control. Pao is a 80-year-old female presenting for follow-up after a recent ER visit for dizziness. Dizziness: - Sudden onset of dizziness while at her niece's house, prompting an ER visit. - Unable to take meclizine at home due to being at her niece's house. - Assisted by EMS to her niece's car for transport to the hospital. - Treated with Valium in the ER, which provided relief. - Discharged home the same night; no further episodes of severe dizziness. - Reports occasional mild weird off feeling that resolves within seconds. - Has not needed to take Valium since the ER visit. - Denies interest in home exercises or physical therapy for vertigo. Immunizations: - Requests flu shot today. - Intends to get the COVID booster at a pharmacy. Care everywhere notes also indicate history of drug-eluting stents to the LAD and left circumflex on aspirin Imdur and atenolol. Stress test advised to rule out silent ischemia. Complete follow-up echocardiogram. Continued on warfarin for pulmonary embolism history. [facility] follows. Sees Dr. Peters urogyneclogy at [facility] for bladder concerns. ROS Genitourinary: (+) bladder problems Neurological: (+) dizziness Objective BP 146/60 Pulse 64 Resp 16 Wt 112.8 kg (248 lb 10.9 oz) SpO2 97% BMI 43.36 kg/m? Physical Exam Vitals and [...] There is no guarding or rebound. Musculoskeletal: Right lower leg: No edema. Left [...] Penicillins Rash Sulfa (Sulfonamide * Rash Medications diazePAM (VALIUM) 2 mg tablet Take 2 mg by mouth every 8 hours as needed (dizziness/vertigo). estradiol (ESTRACE) 0.01 % (0.1 mg/gram) vaginal cream Use 1 g vaginally. as direccted omeprazole (PRILOSEC) 40 mg capsule Take 1 capsule by mouth once daily. fosinopril sodium (MONOPRIL) 40 mg tablet Take 1 tablet by mouth once daily. Fenofibrate (LOFIBRA) 160 mg tablet Take 1 tablet by mouth once daily. atenolol (TENORMIN) 25 mg tablet Take 1 tablet by mouth once daily. nitroglycerin sublingual (NITROQUICK) 0 (more content not included)... [facility] 09-05-2025 Radiology Diagnostic study note [facility] Imaging Services [address] [place] [address] Brain/Head without Contrast MR#: [id number] Acct: [id number] Name: YOBANI REID Rep #: [id number] : 1945 F 80 From: Jerald Meyer MD PCP: Dr. Jose De Jesus Harrington MD Status: RE G ER Study:Brain/Head without Contrast Date of Exa m: 09/05/25 Exam# [id number] Ordering Dr: Lolis Mock DO PROCEDURE: BRAIN/HEAD WITHOUT CONTRAST 09/05/2025 REASON FOR EXAM: DIZZINESS TECHNIQUE: Procedure Code: CTBR Modality: CT Procedure: BRAIN/HEAD WITHOUT CONTRAST Coronal and Sagittal reconstruction series were provided. One or more dose reduction techniques were used (e.g., Automated exposure control, adjustment of the mA and/or kV according to patient size, use of iterative reconstruction technique. FINDINGS: No acute intracranial hemorrhage. No midline shift. Mild generalized atrophy. No extra-axial fluid collection is identified. Mild low attenuation in the cerebral white matter is nonspecific but likely represents mild chronic microvascular ischemic changes. No fracture. The calvarium is intact. The visualized paranasal sinuses and mastoid air cells are clear. CT/Brain/Head without Contrast IMPRESSION: No acute intracranial CT abnormality. Reading Location: [facility] CC: Dr. Jose De Jesus Harrington MD; Eric Mock DO ~ Social Psychologist: Signed [facility] 08-16-2025 Note HNO ID: [id number] Author: SEVERINO HEALY RN Service: ? Author Type: Registered Nurse Type: Progress Notes Filed: 08/16/2025 16:44 Note Text: pcp agrees with information [facility] 08-16-2025 History of Present illness Narrative pcp agrees with information patient had inr completed at [facility] patients inr is 2.5 (patients inr range [...] follow up INR. documented in this encounter [facility] 08-16-2025 Note HNO ID: [id number] Author: SEVERINO HEALY RN Service: ? Author Type: Registered Nurse Type: Progress Notes Filed: 08/16/2025 16:44 Note Text: patient had inr completed at [facility] patients inr is 2.5 (patients inr range [...] 1 month (09/22/25) for follow up INR. [facility] 08-04-2025 Progress note [facility] 08-04-2025 Progress note Note Date/Time August 04, 2025 3:06pm [facility] [address] [place] [address] OFFICE VISIT Date of Service: 08/04/25 MR#: [id number] Acct: [id number] Name: YOBANI REID Rep #: [id number] : 1945 Provider: Dr. Zafar Moreira MD Age/Sex: 80/F Location: [facility] Status: Signed HPI HPI History of [...] Cardiology follow-up encounter Hypertension Preop cardiovascular exam prison current use of anticoagulant RBBB (right bundle branch block) Hypothyroidism GERD (gastroesophageal reflux disease) History of pulmonary embolism (~08/2017) Presence 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 (10/25/19) Atherosclerotic heart disease of [place] coronary artery without angina pectoris Mixed hyperlipidemia [...] 16 [employer] 10/25/2019 per NALLELY @ [facility] Plan: Continue aspirin. Atenolol. Imdur. Risk [...] manage as per primary care physician. 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 Continue to manage as per primary care physician. (8) DM2 (diabetes mellitus, type 2): Status: Chronic Qualifiers: Diabetes mellitus complication status: with circulatory complication Diabetes mellitus complication detail: with other circulatory complications Diabetes mellitus [facility] insulin use: without long term acute care registered nurse use Qualified Code(s): E11.59 - Type 2 [...] I51.89 Essential hypertension I10 Pulmonary embolism I26.99 prison current use of anticoagulant Z79.01 Type 2 diabetes mellitus with other circulatory complication, without long-term current use of insulin E11.59 Diabetes mellitus complication status: with circulatory complication Diabetes mellitus complication detail: with other circulatory complications Diabetes mellitus long term acute care registered nurse insulin use: without long term acute care registered nurse use Class 3 severe obesity due to [...] I51.89 Essential hypertension I10 Pulmonary embolism 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 Jose De Jesus Harrington MD ~ [facility] Work Phone: 1(222) 874-640008-12-2025 Evaluation note* Diagnosis Onset Date Resolution Status Admit Date Nocturia acute July 12 9:49am Overactive bladder acute July 12, 2025 9:49am Urge incontinence acute July 12, 2025 9:49am Urinary tract infection acute A ug2024 9:49am [facility] Work Phone: 1(238) 848-527008-12-2025 Evaluation note* Diagnosis Onset Date Resolution Status Admit Date Nocturia acute July 12 9:49am Overactive bladder acute July 12, 2025 9:49am Urge incontinence acute July 12, 2025 9:49am Urinary tract infection acute A ugust 2024 9:49am Overactive bladder acute July 26, 2025 10:35am Urge incontinence acute July 26, 2025 10:35am Coronary artery disease chronic S eptemb2024 2:05pm 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ure chronic August 04, 2025 2:05pm DM2 (diabetes mellitus, type 2) chronic August 04 025 2:05pm Essential hypertension chronic Se ptember 2024 2:05pm 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 chronic August 04 025 2:05pm Mixed hyperlipidemia chronic Aug 2:05pm Obesity chronic August 04, 2025 2:05pm 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 25, 2019August 2:05pm Pulmonary embolism August, chronic S eptember 2024 2:05pm [facility] Work Phone: 1(533) 689-729208-12-2025 Evaluation note* Diagnosis Onset Date Resolution Status Admit Date Nocturia acute July 12 9:49am Overactive bladder acute July 12, 2025 9:49am Urge incontinence acute July 12, 2025 9:49am Urinary tract infection acute A ug2024 9:49am Nocturia acute July 26 025 10:35am Overactive bladder acute July 26, 2025 10:35am Urge incontinence acute July 26, 2025 10:35am Urinary tract infection acute A ugust 2024 10:35am Coronary artery disease chronic S ep2024 2:05pm 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ure chronic August 04, 2025 2:05pm DM2 (diabetes mellitus, type 2) chronic August 04 025 2:05pm Essential hypertension chronic Se ptember 2024 2:05pm 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 Author Type: Nurse Specialist Type: Progress Notes Filed: 06/30/2025 15:56 Note Text: Continue Coumadin current dosing unchanged and [facility] History of Present illness Narrative* Herbert Jay APRN.CNS - 06/30/2025 2:54 PM EDT Continue Coumadin current dosing unchanged and check INR in 4 weeks * Severino Healy RN - 06/30/2025 12:30 PM EDT patient had inr completed at [facility] patients inr is 2.3 (patients inr range [...] for follow up INR. [facility] NoteHNO ID: [id number] Author: SEVERINO HEALY RN Service: ? Author Type: Registered Nurse Type: Progress Notes Filed: 06/30/2025 15:56 Note Text: patient had inr completed at [facility] patients inr is 2.3 (patients inr range [...] in 4 weeks (07/28/25) for follow up [facility]R.[facility]25 NoteHNO ID: [id number] Author: HERBERT JAY APRN.CNS Service: ? Author Type: Nurse Specialist Type: Progress Notes Filed: 05/26/2025 15:39 Note Text: Continue with Coumadin dose unchanged and check INR in [facility] History of Present illness Narrative* Herbert Jay APRN.CNS - 05/26/2025 12:38 PM EDT Continue with Coumadin dose unchanged and check INR in 1 month * Severino Healy, PERLA - 05/26/2025 12:21 PM EDT patient had inr completed at [facility] patients inr is 2.5 (patients inr range [...] for follow up INR. [facility]25 NoteHNO ID: [id number] Author: SEVERINO HEALY, RN Service: ? Author Type: Registered Nurse Type: Progress Notes Filed: 05/26/2025 15:39 Note Text: patient had inr completed at [facility] patients inr is 2.5 (patients inr range [...] in 1 month (06/30/25) for follow up [facility]R.[facility]05[facility]25 NoteHNO ID: [id number] Author: HERBERT JAY APRN.CNS Service: ? Author Type: Nurse Specialist Type: Progress Notes Filed: 04/28/2025 16:47 Note Text: Continue with Coumadin dose unchanged check INR in 4 [facility] History of Present illness Narrative* Herbert Jay APRN.CNS - 04/28/2025 4:43 PM EDT Continue with Coumadin dose unchanged check INR in 4 weeks * Severino Healy, RN - 04/28/2025 11:53 AM EDT patient had inr completed at [facility] patients inr is 2.6 (patients inr range [...] for follow up INR. [facility] in [facility]-2025 NoteHNO ID: [id number] Author: SEVERINO HEALY RN Service: ? Author Type: Registered Nurse Type: Progress Notes Filed: 04/28/2025 16:47 Note Text: patient had inr completed at [facility] patients inr is 2.6 (patients inr range [...] in 4 weeks (05/26/25) for follow up [facility]R.[facility]05[facility]25 NoteHNO ID: [id number] Author: OLIMPIA GOMEZ APRN.INSPECTOR AND MENDER Service: ? Author Type: Nurse Practitioner Type: Progress Notes Filed: 04/19/2025 09:01 Note Text: DANIEL Reid is a 79 year old female [...] under the care of Dr. Moreira at [facility] and is currently taking potassium supplements. [...] participating in a stretch class at the [facility] twice a week, which she believes has improved her balance and flexibility. She has also been working on weight loss and has lost 3 pounds, though she notes hitting a plateau. She has a living will and power of manager trust in place. Her medications were reviewed today [...] mg daily x 5 days and 2.5mg Tu and Thurs) meclizine (ANTIVERT) 25 mg tab [...] LIST Pulmonary Embolism Without Acute Cor Pulmonale ([facility]) - 10/13/2023 Vitamin D Deficiency - 02/24/2022 Hypomagnesemia - 02/24/2022 Hypertensive Kidney Disease With Stage 3a Chronic Kidney Disease ([facility]) - 04/16/2021 prison current use of anticoagulant - 05/08/2018 History of Pulmonary Embolus (Pe) - 05/08/2018 Comment: PE following surgery [facility] Type 2 Diabetes Mellitus With Stage 3a Chronic Kidney Disease, Without Long-Term Current Use of Insulin ([facility]) - (more content not included)...[facility]05-20-2025 History of Present illness Narrative* Olimpia Gomez APRN.INSPECTOR AND MENDER - 04/19/2025 8:33 AM EDT SUBJECTIVE Yobani [...] under the care of Dr. Moreira at [facility] and is currently taking potassium supplements. [...] participating in a stretch class at the [facility] twice a week, which she believeshas improved her balance and flexibility. She has also been working on weight loss and has lost 3 pounds, though she notes hitting a plateau. She has a living will and power of manager trust in place. Her medications were reviewed today [...] 5 mg tablet Take 5 mg Mon, Fri and 7.5 mg all other days [...] LIST Pulmonary Embolism Without Acute Cor Pulmonale ([facility]) - 10/13/2023 Vitamin D Deficiency - 02/24/2022 Hypomagnesemia - 02/24/2022 Hypertensive Kidney Disease With Stage 3a Chronic Kidney Disease ([facility]) - 04/16/2021 prison current use of anticoagulant - 05/08/2018 History of Pulmonary Embolus (Pe) - 05/08/2018 Comment: PE following surgery [facility] Type 2 Diabetes Mellitus With Stage 3a Chronic Kidney Disease, Without Long-Term Current Use of Insulin ([facility]) - 01/15/2018 Plantar Fasciitis, Bilateral - 06/11/2016 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 - Continue current antihypertensive regimen. 2. Type 2 diabetes mellitus with stage 3b chronic kidney disease, without long- term current use of insulin (HCC) (E11.22) Diabetes management requires monitoring of renal function due to CKD stage 3b. - Ordered HbA1c to assess glycemic control. 3. Mixed hyperlipidemia (E78.2) Requires routine monitoring. - Ordered lipid panel. 4. Acquired hypothyroidism (E03.9) Stable on current medication regimen. - Sent prescription refills to [facility]. 5. Vitamin D deficiency (E55.9) Stable on current supplementation. - Sent prescription refills to [facility] pharmacy. 6. Trigger ring finger of left hand (M65.342) Morning joint stiffness of hand, left (M25.642) Morning joint stiffness of right hand (M25.641) Intermittent symptoms of trigger finger in both hands; patient has a history of three previous trigger finger releases. - Monitor symptoms; consider referral to orthopedics for corticosteroid injections if symptoms worsen. 7. Body mass index (BMI) 40.0-44.9, adult (HCC) (Z68.41) Current weight management includes participation in a stretch class at the [facility] twice weekly. - Continue current physical activity [...] potential exacerbation of TMJ symptoms. Recording using iRx Reminder software for draft documentation of the visit was discussed with the patient/authorized telemarketing representative; all questions welcomed and answered. Patient/authorized telemarketing representative agreed to proceed Portions of this [...] to improve, for Keep next scheduled appointment.. SIM Frias documented in this encounterMari[facility]05-12-2025 NoteHNO ID: [id number] Author: FELICITY MARTINEZ MA Service: ? Author Type: Seconds Handler Type: Progress Notes Filed: 04/11/2025 08:46 Note [...] Felicity Martinez MA April 11, 2025 8:45 [facility]05-12-2025 History of Present illness Narrative* Felicity Martinez MA - 04/11/2025 8:44 AM EDT POPULATION HEALTH NAVIGATION OUTREACH Action/I updated appointment notes HCC CLOSURE Topic Due [...] 11, 2025 8:45 AM documented in this encounterMarietta [facility] Hospital05-12-2025 NotePatient Outreach (NETNAV) YOBANI REID ([id number]) 1945 F Date Time Provider Department 04/11/25 FELICITY MARTINEZ During your visit today, we recorded the [...] Date Reviewed: 11/03/2024 Reviewed by: Roseann Elizabeth APRN.INSPECTOR AND MENDER - Fully Assessed Reason for Visit: Population Health Navigation Outreach [3910] Cmt: NAHOMI SOLORIO Prescriptions as of 04/11/2025 - isosorbide mononitrate [...] diabetes mellitus with stage 3a chronic *01/15/2018 prison current use of anticoagulant [Z79.01]05/08/2018 History of pulmonary embolus (PE) [Z86.711] 05/08/2018 Hypertensive kidney disease with stage 3a chron*04/16/2021 Vitamin D deficiency [E55.9] 02/24/2022 Hypomagnesemia [E83.42] 02/24/2022 Pulmonary embolism without acute cor pulmonale *10/13/2023 Enc (more content not included)...[facility]05-02-2025 NoteHNO ID: [id number] Author: HERBERT JAY APRN.CNS Service: ? Author Type: Nurse Specialist Type: Progress Notes Filed: 04/01/2025 16:28 Note Text: Continue Coumadin dose unchanged and check INR in 4 weeksBarberton [facility]05-02-2025 History of Present illness Narrative* Herbert Jay APRN.CNS - 04/01/2025 11:05 AM EDT Continue Coumadin dose unchanged and check INR in 4 weeks * Severino Healy RN - 04/01/2025 10:53 AM EDT patient had inr completed at [facility] patients inr is 2.1 (patients inr range [...] for follow up INR. documented in this encounterMarietta Memorial Hospital05-02-2025 NoteHNO ID: [id number] Author: SEVERINO HEALY RN Service: ? Author Type: Registered Nurse Type: Progress Notes Filed: 04/01/2025 16:28 Note Text: patient had inr completed at [facility] patients inr is 2.1 (patients inr [...] in 4 weeks (04/28/25) for follow up INR.[facility]04-03-2025 NoteHNO ID: [id number] Author: HERBERT JAY APRN.CNS Service: ? Author Type: Nurse Specialist Type: Progress Notes Filed: 03/03/2025 16:43 Note Text: Continue with Coumadin dose unchanged and check INR in 4 weeksBarberton [facility]04-03-2025 History of Present illness Narrative* Herbert Jay APRN.CNS - 03/03/2025 12:38 PM EDT Continue with Coumadin dose unchanged and check INR in 4 weeks * Severino Healy RN - 03/03/2025 11:59 AM EDT patient had inr completed at [facility] patients inr is 2.8 (patients inr range [...] for follow up INR. documented in this encounterMarietta Memorial Hospital04-03-2025 NoteHNO ID: [id number] Author: SEVERINO HEALY RN Service: ? Author Type: Registered Nurse Type: Progress Notes Filed: 03/03/2025 16:43 Note Text: patient had inr completed at [facility] patients inr is 2.8 (patients inr range [...] in 4 weeks (04/01/25) for follow up INR.[facility]03-13-2025 NoteHNO ID: [id number] Author: HERBERT JAY APRN.BUSINESS INITIATIVES MANAGER Service: ? Author Type: Nurse Specialist Type: Progress Notes Filed: 02/10/2025 16:22 Note Text: Continue with Coumadin dose unchanged check INR in 3 weeksBarberton [facility] Hospital03-13-2025 History of Present illness Narrative* Herbert Jay APRN.BUSINESS INITIATIVES MANAGER - 02/10/2025 11:16 AM EDT Continue with Coumadin dose unchanged check INR in 3 weeks * Severino Healy RN - 02/10/2025 10:28 AM EDT patient had inr completed at [facility] patients inr is 2.6 (patients inr range [...] for follow up INR.. documented in this encounterMarietta Memorial Hospital03-13-2025 NoteHNO ID: [id number] Author: SEVERINO HEALY RN Service: ? 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 Author Type: Nurse Specialist Type: Progress Notes Filed: 01/27/2025 16:31 Note Text: Recommend Coumadin 2.5 mg Nunu and Thday, 5 mg all other days and check INR in 2 weeksBarberton [facility] Hospital02-27-2025 History of Present illness Narrative* Herbert Jay APRN.CNS - 01/27/2025 11:23 AM EST Recommend Coumadin 2.5 mg Friday and Thday, 5 mg all other days and check INR in 2 weeks * Severino Healy RN - 01/27/2025 10:59 AM EST patient had inr completed at [facility] patients inr is 1.9 (patients inr range is 2.0-3.0) patient is currently taking 2.5mg ,Th,Sun and 5mg all other days patients last [...] not agree with recommendation documented in this encounterMarietta [facility] Hospital02-27-2025 NoteHNO ID: [id number] Author: SEVERINO HEALY RN Service: ? Author Type: Registered Nurse Type: Progress Notes Filed: 01/27/2025 16:31 Note Text: patient had inr completed at [facility] patients inr is 1.9 (patients inr range [...] if provider does not agree with recommendation [facility]02-13-2025 NoteHNO ID: [id number] Author: KIRK MAIN MD Service: ? Author Type: Physician Type: Progress Notes Filed: 01/13/2025 11:09 Note Text: agreeBarberton [facility] Hospital02-13-2025 History of Present illness Narrative* Kirk Main MD - 01/13/2025 11:09 AM EST agree * Severino Healy RN - 01/13/2025 11:05 AM EST patient had inr completed at [facility] patients inr is 1.8 (patients inr range [...] to the missed doses documented in this encounterMarietta [facility] Hospital02-13-2025 NoteHNO ID: [id number] Author: SEVERINO HEALY RN Service: ? Author Type: Registered Nurse Type: Progress Notes Filed: 01/13/2025 11:09 Note Text: patient had inr completed at [facility] patients inr is 1.8 (patients inr range [...] but most likely due to the missed dosesBarberton [facility] Hospital01-16-2025 NoteHNO ID: [id number] Author: HERBERT JAY APRN.CNS Service: ? Author Type: Nurse Specialist Type: Progress Notes Filed: 12/16/2024 15:03 Note Text: Continue with Coumadin dose unchanged and check INR in 4 weeksBarberton Citizens Hospital01-16-2025 History of Present illness Narrative* Herbert Jay APRN.CNS - 12/16/2024 10:48 AM EST Continue with Coumadin dose unchanged and check INR in 4 weeks * Severino Healy RN - 12/16/2024 10:15 AM EST patient had inr completed at [facility] patients inr is 2.0 (patients inr range [...] for follow up INR. documented in this encounterMarietta Memorial Hospital01-16-2025 NoteHNO ID: [id number] Author: SEVERINO HEALY RN Service: ? Author Type: Registered Nurse Type: Progress Notes Filed: 12/16/2024 15:03 Note Text: patient had inr completed at [facility] patients inr is 2.0 (patients inr range [...] in 4 weeks (01/13/25) for follow up INR.[facility]12-21-2024 Telephone encounter Note* Telephone Encounter - Victoriano Elizabeth - 11/20/2024 9:38 AM EST Lvm/mcm requesting pt to call back for PATRICIA per workstation order [facility]12-21-2024 Miscellaneous Notes* Telephone Encounter - Victoriano Elizabeth - 11/20/2024 9:38 AM EST Lvm/mcm requesting pt to call back for PATRICIA per workstation order documented in this encounterMarietta Memorial Hospital12-19-2024 NoteHNO ID: [id number] Author: HERBERT JAY APRN.CNS Service: ? Author Type: Nurse Specialist Type: Progress Notes Filed: 11/18/2024 16:05 Note Text: Continue Coumadin dose unchanged and check INR in 4 weeksBarberton Citizens Hospital12-19-2024 History of Present illness Narrative* Herbert Jay APRN.CNS - 11/18/2024 1:43 PM EST Continue Coumadin dose unchanged and check INR in 4 weeks * Severino Healy RN - 11/18/2024 10:26 AM EST patient had inr completed at [facility] patients inr is 2.3 (patients inr range [...] for follow up INR. documented in this encounterMarietta Memorial Hospital12-19-2024 Telephone encounter Note * Telephone Encounter - Severino Healy RN - 11/18/2024 10:28 AM EST patients orders for coumadin clinic inr's has at this time. new order has been pended for approval if possible so that patient can continue to get inr's completed thru the coumadin clinic. coumadin clinic nurse only needs called if order can not be approved. [facility]12-19-2024 Miscellaneous Notes* Telephone Encounter - Severino Healy RN - 11/18/2024 10:28 AM EST patients orders for coumadin clinic inr's has at this time. new order has been pended for approval if possible so that patient can continue to get inr's completed thru the coumadin clinic. coumadin clinic nurse only needs called if order can not be approved. documented in this encounterMarietta [facility] Hospital12-19-2024 NoteHNO ID: [id number] Author: SEVERINO HEALY RN Service: ? Author Type: Registered Nurse Type: Progress Notes Filed: 11/18/2024 16:05 Note Text: patient had inr completed at [facility] patients inr is 2.3 (patients inr range [...] in 4 weeks (12/16/24) for follow up INR.[facility]12-04-2024 Instructions* Patient Instructions* Roseann Elizabeth APRN.[facility] - 11/03/2024 9:14 AM EST Images from [...] open during sleep. A sleep specialist and imaging science professor (with expertise in oral appliances for this [...] the back of the throat) Resources: [facility] Guide to Sleep Disorders by Saida Bradford DO National [employer] [address] [place] [address] [address] [facility] [id number] [email or web address] [place] [employer] [address] [place] [address], [address] [place], [place] [email or web address] documented in this encounterMarietta [facility] Hospital12-04-2024 NoteHNO ID: [id number] Author: ROSEANN ELIZABETH APRN.INSPECTOR AND MENDER Service: ? Author Type: Nurse Practitioner Type: Progress Notes Filed: 11/08/2024 05:47 Note Text: [facility] New Patient Evaluation PATIENT NAME: Yobani Reid DATE OF SERVICE: November 03, 2024 CONSULTING PROVIDER: Jose De Jesus Harrington [address] [facility] [id number] REASON FOR CONSULT: Jose De Jesus Harrington sends the patient for an opinion about PATRICIA. My findings and recommendations will be transmitted electronically via shared medical record to the consulting provider. HPI: Yobani Reid is a 79 year old female. Sleep-related history: she had a PSG right after being in rehab at [facility] in 2022 after a fall. Diagnosed [...] alone. 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 Has TMJ issues intermittently. GERD or aspiration: [...] Coronary atherosclerosis of unspecified type of vessel, [place] or graft 10/24/2009 Esophageal reflux Gastroesophageal reflux [...] DXAND/THER NONOBSTETRIC Dilation AND curettage EGD W/O [facility] SPEC VARICIES INJ 12/16/2023 ESOPHAGOGASTRODUODENOSCOPY TRANSORAL DIAGNOSTIC 06/14/2013 EGD FINGER SURGERY HX Right 10/2016 trig (more content not included)...[facility]12-04-2024 History of Present illness Narrative* Roseann Elizabeth, SANDEE.INSPECTOR AND MENDER - 11/03/2024 9:00 AM EST Images from the original note were not included. [facility] New Patient Evaluation PATIENT NAME: Yobani Reid DATE OF SERVICE: November 03, 2024 CONSULTING PROVIDER: Jose De Jesus Harrington [address] [facility] [address] REASON FOR CONSULT: Jose De Jesus Harrington sends the patient for an opinion about PATRICIA. My findings and recommendations will be transmitted electronically via shared medical record to the consulting provider. HPI: Yobani Reid is a 79 year old female. Sleep-related history: she had a PSG right after being in rehab at [facility] in 2022 after a fall. Diagnosed [...] alone. 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 Has TMJ issues intermittently. GERD or aspiration: [...] Coronary atherosclerosis of unspecified type of vessel, [place] or graft 10/24/2009 Esophageal reflux Gastroesophageal reflux Impaired fasting glucose 11/13/2005 Mixed hyperlipidemia Hyperlipidemia Musculoskeletal disorder of the masseter 08/27/2010 hypertrophy, from chronic bruxism Other pulmonary embolism without acute cor pulmonale (HCC) 05/08/2018 PE following surgery [facility] Overactive bladder Peptic ulcer, unspecified site, [...] Without Long-Term Current Use of Insulin (Hcc) prison current use of anticoagulant History of Pulmonary [...] obesity, CKD, DM2, hypothyroidism, CAD, hx PE, 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 Author Type: Registered Nurse Type: Progress Notes Filed: 10/20/2024 16:24 Note Text: pcp agrees with informationBarberton [facility] Hospital11-20-2024 History of Present illness Narrative* Severino Healy RN - 10/20/2024 4:24 PM EST pcp agrees with information * Severino Healy RN - 10/20/2024 10:14 AM EST patient had inr completed at [facility] patients inr is 2.2 (patients inr range is 2.0-3.0) patient is currently taking 2.5mg Sun and 5mg all other days patients [...] follow u p INR. documented in this encounterMarietta Memorial Hospital11-20-2024 NoteHNO ID: [id number] Author: SEVERINO HEALY, RN Service: ? Author Type: Registered Nurse Type: Progress Notes Filed: 10/20/2024 16:24 Note Text: patient had inr completed at [facility] patients inr is 2.2 (patients inr range is 2.0-3.0) patient is currently taking 2.5mg Sun and 5mg all other days patients [...] in 4 weeks (11/18/24) for follow up INR.[facility]11-20-[facility] Instructions* Patient Instructions* Jose De Jesus [...] appointment in six months. documented in this encounterMarietta Memorial Hospital11-20-2024 NoteHNO ID: [id number] Author: JOSE DE JESUS HARRINGTON MD Service: ? Author Type: Physician Type: Progress Notes Filed: 10/23/2024 19:36 Note Text: This note was created using CHEQROOMriter. Subjective Yobani Reid is a 79 year [...] a recent issue with her mail-order pharmacy, [facility], which delayed her amlodipine refill, causing her [...] levels. Yobani has had difficulty accessing her enGreet account due to issues with password and two-factor authentication. She has not been able to update her information or use the [id number]-vb feature. PAST MEDICAL HISTORY Diagnosis Date Acute appendicitis 05/11/14 Allergic rhinitis, cause unspecified Allergic rhinitis CKD (chronic kidney disease) 02/23/2010 Coronary atherosclerosis of unspecified type of vessel, [place] or graft 10/24/2009 Esophageal reflux Gastroesophageal reflux Impaired fasting glucose 11/13/2005 Mixed hyperlipidemia Hyperlipidemia Musculoskeletal disorder of the masseter 08/27/2010 hypertrophy, from chronic bruxism Other pulmonary embolism without acute cor pulmonale (HCC) 05/08/2018 PE following surgery [facility] Overactive bladder Peptic ulcer, unspecified site, [...] daily x 6 d (more content not included)...[facility] History of Present illness Narrative* Jose De Jesus Harrington MD - 10/20/2024 8:42 AM EST This note was created using CHEQROOMriter. Subjective Yobani Reid is a 79 year [...] recent issue with her mail- order pharmacy, [facility], which delayed her amlodipine refill, causing her [...] levels. Yobani has had difficulty accessing her [employer]reet account due to issues with password and two-factor authentication. She has not been able to update her information or use the myj-awqqz-ur feature. PAST MEDICAL HISTORY Diagnosis Date Acute appendicitis 05/11/14 Allergic rhinitis, cause unspecified Allergic rhinitis CKD (chronic kidney disease) 02/23/2010 Coronary atherosclerosis of unspecified type of vessel, [place] or graft 10/24/2009 Esophageal reflux Gastroesophageal reflux [...] content normal. Judgment: Judgment normal. Latest Ref Rn 03/19/2024 10/04/2024 WBC 3.70 - 11.00 k/uL [...] Abs Lymph 1.00 - 4.00 k/uL 1.75 [place]% % 10.3 Abs [place] <0.87 k/uL 0.66 E[place]% % 3.0 Abs [...] without long- term current use of insulin ([facility]) (E11.22) - Recent labs show BUN at [...] in adult, unspecified whether serious comorbidity present ([facility]) (E66.813) - Current weight management includes dietary [...] - Refill sent to [facility]. # prison current use of anticoagulant (Z79.01) - Current [...] De Jesus Harrington MD documented in this encounterMarietta Memorial Hospital11-08-2024 History of Present illness Narrative* Herbert Jay, SANDEE.BUSINESS INITIATIVES MANAGER - 10/08/2024 10:20 AM EST SUBJECTIVE: Shingrix Vaccine(2 of 3) due on 04/09/2012 RSV Vaccine(1 - 1-dose 75+ series) Never done Diabetic Foot Exam due on 03/20/2024 Dilated Retinal Exam due on 06/19/2024 Covid-19 Vaccine(2023-) due on 08/01/2024 HbA1C due on 09/18/2024 [...] Without Long-Term Current Use of Insulin (Hcc) prison current use of anticoagulant History of Pulmonary [...] this morning. 9. EXPOSURE: Patient was in [place] vacationing when diarrhea started. Doesn't recall eating anything that could have caused diarrhea and nothing spoiled. No recent foreign travel. Patient did try imodium but didn't seem to make a difference. 10. ANTIBIOTIC USE: No 11. OTHER SYMPTOMS: No fever, blood in stool possibly x 1 yesterday. Reports the toilet bowel waterlooked pink but none since. 12. : No Protocols used: [id number] She reports being on vacation in [place]. She noted that she started with loose [...] Coronary atherosclerosis of unspecified type of vessel, [place] or graft 10/24/2009 Esophageal reflux Gastroesophageal reflux [...] with VKA drugs, such as warfarin, the [place] [employer] 2012 Guideline recommends [...] 2.5 to 3.5 (target INR of 3). Gucolttt GH, et al. Chest 2012, 141:7S-47S Roberto RA, et al. [facility] 2017, 70: 252-289 Hemoglobin A1C (%) Date Value 03/19/2024 6.3 12/18/2021 6.2 ASSESSMENT/PLAN: 1. Diarrhea, unspecified type - ICD9: 787.91, ICD10: R19.7 (primary diagnosis) All symptoms now resolved, did not complete stools cultures due to resolution 2. prison current use of anticoagulant - ICD9: V58.61, [...] add on to previous labs Herbert Jay APRN.KIJNAL Medical Decision Making: Problems: Low: Acute, uncomplicated illness or injury Data: Unique test result(s) reviewed: 3+ Unique test(s) ordered: 1 Medical Decision Making Level: 3 - Low documented in this encounterMarietta Memorial Hospital11-08-2024 NoteHNO ID: [id number] Author: HERBERT JAY APRN.BUSINESS INITIATIVES MANAGER Service: ? Author Type: Nurse Specialist Type: [...] Without Long-Term Current Use of Insulin (Hcc) prison current use of anticoagulant History of Pulmonary Embolus (Pe) Hypertensive Kidney Disease With Stage 3a Chronic Kidney Disease (Hcc) Vitamin D Deficiency Hypomagnesemia Pulmonary Embolism Without Acute Cor Pulmonale ([facility]) Presents today for diarrhea recheck. Office note [...] this morning. 9. EXPOSURE: Patient was in [place] vacationing when diarrhea started. Doesn't recall eating anything that could have caused diarrhea and nothing spoiled. No recent foreign travel. Patient did try imodium but didn't seem to make a difference. 10. ANTIBIOTIC USE: No 11. OTHER SYMPTOMS: No fever, blood in stool possibly x 1 yesterday. Reports the toilet bowel water looked pink but none since. 12. : No Protocols used: [id number] She reports being on vacation in [place]. She noted that she started with loose [...] warm and dry. Neurological: (more content not included)...[facility]11-07-2024 Telephone encounter Note* Telephone Encounter - Desiree Dailey RN - 10/07/2024 9:52 AM EST Patient given provider's messages below. Pt verbalizes understanding of coumadin and INR orders. Patient states her diarrhea has resolved and she will not complete the stool tests then. Desiree Dailey RN [facility]11-07-2024 Miscellaneous Notes* Telephone Encounter - [...] providers message.Updated Anticoag tracker. Britney Deleon RN * Telephone Encounter - [...] Pt reports she will stop in and crab picker containers. Lexy Rodrigez LPN * Telephone Encounter - Lexy Rodrigez LPN - 10/06/2024 10:07 AM EST ----- Message from Herbert Chavez APRN.BUSINESS INITIATIVES MANAGER sent at 10/05/2024 3:45 PM EST ----- Lab work showed some relative dehydration otherwise no concerning findings so far recommend pushingfluids as discussed at her visit. Complete stool cultures when she is able to do so. INR subtherapeutic, check current dosing a. Nd if any missed doses. documented in this encounterMarietta [facility] Hospital11-07-2024 Telephone encounter Note * Telephone Encounter - Britney Deleon RN - 10/07/2024 9:34 AM EST Called and left a voicemail for the Patient to call back and ask for a nurse to receive the providers message.Updated Anticoag tracker. Britney Deleon RN [facility]11-06-2024 Telephone encounter Note* Telephone Encounter - Jose De Jesus Harrington MD - 10/06/2024 7:14 PM EST Noted INR was down to 1.6 in August and then was fine through August on same dose coumadin. Stay on same dose and recheck in 2 weeks. If diarrhea has resolved, then does not need to do stool tests. [facility]11-06-2024 Telephone encounter Note* Telephone Encounter [...] Pt reports she will stop in and crab picker containers. Lexy Rodrigez LPN [facility]11-06-2024 Telephone encounter Note* Telephone Encounter - Lexy Rodrigez LPN - 10/06/2024 10:07 AM EST ----- Message from Herbert Chavez APRN.BUSINESS INITIATIVES MANAGER sent at 10/05/2024 3:45 PM EST ----- Lab work showed some relative dehydration otherwise no concerning findings so far recommend pushingfluids as discussed at her visit. Complete stool cultures when she is able to do so. INR subtherapeutic, check current dosing a. Nd if any missed doses. 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 9. EXPOSURE: Patient was in [place] vacationing when diarrhea started. Doesn't recall eating anything that could have caused diarrhea and nothing spoiled. No recent foreign travel. Patient did try imodium but didn't seem to make a difference. 10. ANTIBIOTIC USE: No 11. OTHER SYMPTOMS: No fever, blood in stool possibly x 1 yesterday. Reports the toilet bowel waterlooked pink but none since. 12. : No Protocols used: [id number] She reports being on vacation in [place]. She noted that she started with loose [...] Coronary atherosclerosis of unspecified type of vessel, [place] or graft 10/24/2009 Esophageal reflux Gastroesophageal reflux Impaired fasting glucose 11/13/2005 Mixed hyperlipidemia Hyperlipidemia Musculoskeletal disorder of the masseter 08/27/2010 hypertrophy, from chronic bruxism Other pulmonary embolism without acute cor pulmonale (HCC) 05/08/2018 PE following surgery [facility] Overactive bladder Peptic ulcer, unspecified site, [...] Continue with Imodium as needed. Push fluids. Page diet. - COMPLETE BLOOD COUNT AND DIFFERENTIAL - C. 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 She called [...] this morning. 9. EXPOSURE: Patient was in [place] vacationing when diarrhea started. Doesn't recall eating anything that could have caused diarrhea and nothing spoiled. No recent foreign travel. Patient did try imodium but didn't seem to make a difference. 10. ANTIBIOTIC USE: No 11. OTHER SYMPTOMS: No fever, blood in stool possibly x 1 yesterday. Reports the toilet bowel water looked pink but none since. 12. : No Protocols used: [id number] She reports being on vacation in [place]. She noted that she started with loose [...] See Comments Burning an (more content not included)...[facility]11-04-2024 Telephone encounter Note* Telephone Encounter - Angy Maher RN - [...] this morning. 9. EXPOSURE: Patient was [place] [facility]. Doesn't recall eating anything that could have caused diarrhea and nothing spoiled. No recent foreign travel. Patient did try imodium but didn't seem to make a difference. 10. ANTIBIOTIC USE: No 11. OTHER SYMPTOMS: No fever, blood in stool possibly x 1 yesterday. Reports the toilet bowel waterlooked pink but none since. 12. : No Protocols used: [id number] [facility]11-04-2024 Miscellaneous Notes* Telephone Encounter - [...] this morning. 9. EXPOSURE: [facility] [place] [facility] [place] [facility]. Doesn't recall eating anything that could have caused diarrhea and nothing spoiled. No recent foreign travel. Patient did try imodium but didn't seem to make a difference. 10. ANTIBIOTIC USE: No 11. OTHER SYMPTOMS: No fever, blood in stool possibly x 1 yesterday. Reports the toilet bowel waterlooked pink but none since. 12. : No Protocols used: Lljxuiuv-XSWBT-VS documented in this encounterMarietta Memorial Hospital10-17-2024 History of Present illness Narrative* Severino Healy RN - 09/16/2024 5:22 PM EDT pcp agrees with information * Severino Healy RN - 09/16/2024 11:50 AM EDT patient had inr completed at [facility] patients inr is 2.1 (patients inr range [...] for follow up INR. documented in this encounterMarietta [facility] Hospital10-03-2024 History of Present illness Narrative* Herbert Jay APRN.CNS - 09/02/2024 10:41 AM EDT Continue with Coumadin dose unchanged and check INR in 2 weeks * Severino Healy RN - 09/02/2024 10:14 AM EDT patient had inr completed at [facility] patients inr is 2.3 (patients inr range [...] reading since dose change documented in this encounterMarietta [facility] Hospital09-18-2024 History of Present illness Narrative* Severino Healy RN - 08/18/2024 12:40 PM EDT pcp agrees with information * Severino Healy RN - 08/18/2024 9:35 AM EDT patient had inr completed at [facility] patients inr is 1.6 (patients inr range is 2.0-3.0) patient is currently taking 5mg Fri,Fri,Fri and 2.5mg all other days patients last [...] not agree with recommendation documented in this encounterMarietta [facility] Hospital09-05-2024 History of Present illness Narrative* Herbert Jay APRN.CNS - 08/05/2024 12:09 PM EDT Coumadin 5 mg Friday and 2.5 mg all other days. Check INR in 2 weeks as she declines to come to the lab in 1 week when coumdin clinic is closed. * Severino Healy RN - 08/05/2024 11:20 AM EDT patient had inr completed at [facility] patients inr is 3.4 (patients inr range [...] diet recommend: patient change coumadin to 5mg Mon,Wed,Fri and 2.5mg all other days and recheck in 2 weeks due to the cc will be closed at the 1 week josie and patient declines lab drawl patient has been scheduled for a 2 week inr follow up on 08/18/24 please review and advise on recommendation patient only needs called if provider does not agree with recommendation documented in this encounterMarietta [facility] Hospital08-29-2024 History of Present illness Narrative* Severino Healy RN - 07/29/2024 4:53 PM EDT pcp agrees with information * Severino Healy RN - 07/29/2024 12:21 PM EDT patient had inr completed at [facility] patients inr is 3.3 (patients inr range [...] not agree with recommendation documented in this encounterMarietta [facility] Hospital08-27-2024 Instructions* Patient Instructions* Jose De [...] scheduled for October 20 documented in this encounterMarietta Memorial Hospital08-27-2024 History of Present illness Narrative* Jose De Jesus Harrington MD - 07/27/2024 3:50 PM EDT Images from the original note were not included. This note was created using [employer]. Subjective Yobani Reid is a 79 year [...] pressure, with readings typically in the 120s/60s [id number]/70s range. She is currently taking atenolol 25 [...] mask. She is scheduled to see her customer service leader at the end of next month and has an appointment with her primary care provider in October. PAST MEDICAL HISTORY 05/11/14: Acute appendicitis No date: Allergic rhinitis, cause unspecified Comment: Allergic rhinitis 02/23/2010: CKD (chronic kidney disease) 10/24/2009: Coronary atherosclerosis of unspecified type of vessel, [place] or graft No date: Esophageal reflux Comment: Gastroesophageal reflux 11/13/2005: Impaired fasting glucose No date: Mixed hyperlipidemia Comment: Hyperlipidemia 08/27/2010: Musculoskeletal disorder of the masseter Comment: hypertrophy, from chronic bruxism 05/08/2018: Other pulmonary embolism without acute cor pulmonale (HCC) Comment: PE following surgery [facility] No date: Overactive bladder No date: [...] Abs Lymph 1.00 - 4.00 k/uL 1.66 [place]% % 7.7 Abs [place] <0.87 k/uL 0.62 Eosin% % 3.2 Abs [...] provide additional blood pressure control duringnighttime and physician practice market manager hours. - Discussed potential side effects of [...] has issues with claustrophobia. PSG report from [facility] reviewed. AHI score in 15 rangeand pulse ox under 88% for about 49 minutes. Copy of report to be scanned into [employer]. Needs to keep working on diet and exercise with lifestyle changes for effective weight loss as wellas prevention of DM, and control of BP and lipids. BMI starting to come down again. Jose De Jesus Harrington MD documented in this encounterMarietta [facility] Hospital08-27-2024 Telephone encounter Note * Telephone [...] concerns with her provider. PCP office had opening and pt was scheduled. Pt will bring in home BP monitor to as well. Also, pt shares that a company called [employer] had reached out to her last month offering a BP monitoring service, which she has accepted and has been using. Informed pt that this service has not been in contact with PCP, according to record. Pt to discuss this in more detail with PCP at today's visit as well. Desiree Dailey RN [facility]08-27-2024 Miscellaneous Notes* Telephone Encounter - [...] concerns with her provider. PCP office had openingto and pt was scheduled. Pt will bring in home BP monitor to as well. Also, pt shares that a [...] well. Desiree Dailey RN documented in this encounterMarietta Memorial Hospital08-13-2024 Telephone encounter Note * Telephone [...] Reported this to Shiela Franco RN nurse military technology manager. [facility]08-13-2024 Miscellaneous Notes* Telephone Encounter - [...] Reported this to Shiela Franco RN nurse military technology manager. documented in this encounterMarietta Memorial Hospital08-01-2024 History of Present illness Narrative* Sandy Leary LPN - 07/01/2024 3:35 PM EDT Noted Sandy Leary LPN * Herbert Jay APRN.CNS - 07/01/2024 11:20 AM EDT Continue with Coumadin dose unchanged and check INR in 4 weeks * Severino Healy RN - 07/01/2024 10:21 AM EDT patient had inr completed at [facility] patients inr is 2.6 (patients inr range [...] for follow up INR. documented in this encounterMarietta Memorial Hospital06-27-2024 History of Present illness Narrative* Herbert Jay APRN.CNS - 05/27/2024 1:52 PM EDT Continue Coumadin dose unchanged check INR 1 month * Severino Healy RN - 05/27/2024 11:51 AM EDT patient had inr completed at [facility] patients inr is 2.9 (patients inr range [...] for follow up INR. documented in this encounterMarietta Memorial Hospital05-30-2024 History of Present illness Narrative* Herbert Jay APRN.CNS - 04/29/2024 4:08 PM EDT Continue with Coumadin dose unchanged and check INR in 4 weeks * Severino Healy RN - 04/29/2024 10:27 AM EDT patient had inr completed at [facility] patients inr is 2.7 (patients inr range [...] for follow up INR. 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 Atherosclerosis of [place] coronary artery of [place] heart without angina pectoris - ICD9: 414.01, ICD10: I25.10 - NITROGLYCERIN 0.4 MG SUBLINGUAL TABLET 4. Pulmonary embolism without acute cor pulmonale, unspecified chronicity, unspecified pulmonary embolism type (HCC) - ICD9: 415.19, ICD10: I26.99 On coumadin. 5. Class 3 severe obesity due to excess calories without serious comorbidity with body mass index (BMI) of 40.0 to 44.9 in adult ([facility]) - ICD9: 278.01, V85.41, ICD10: E66.01, Z68.41 6. Type 2 diabetes mellitus with stage 3a chronic kidney disease, without long- term current use of insulin ([facility]) - ICD9: 250.40, 585.3, ICD10: E11.22, N18.31 [...] appointment.. Olimpia Gomez APRN-KAYLIE documented in this encounterMarietta Memorial Hospital05-03-2024 Telephone encounter Note * Telephone [...] Please advise. Thank you. Melvina Glass LPN. [facility]05-03-2024 Miscellaneous Notes* Telephone Encounter - [...] you. Melvina Glass LPN. documented in this encounterMarietta Memorial Hospital05-02-2024 History of Present illness Narrative* Herbert Jay APRN.CNS - 04/01/2024 2:37 PM EDT Continue with Coumadin dose unchanged and check INR in 4 weeks * Severino Healy RN - 04/01/2024 10:39 AM EDT patient had inr completed at [facility] patients inr is 2.4 (patients inr range [...] for follow up INR. documented in this encounterMarietta Memorial Hospital04-19-2024 History of Present illness Narrative* Severino Healy RN - 03/19/2024 3:45 PM EDT pcp agrees with information * Severino Healy RN - 03/19/2024 10:22 AM EDT patient had inr completed at [facility] patients inr is 1.9 (patients inr range [...] is just slightly low documented in this encounterMarietta Memorial Hospital04-05-2024 History of Present illness Narrative* Severino Healy RN - 03/05/2024 3:08 PM EDT pcp agrees with information PATIENT NOTIFIED OF INFORMATION * Severino Healy RN - 03/05/2024 11:00 AM EDT patient had inr completed at [facility] patients inr is 1.8 (patients inr range [...] and advise on recommendation documented in this encounterMarietta Memorial Hospital03-27-2024 Telephone encounter Note * Telephone Encounter - Lexy Bates MA - 02/25/2024 10:48 AM EDT Pt notified. Rx at Medical records for crab picker. Lexy Bates MA [facility]03-27-2024 Miscellaneous Notes* Telephone Encounter - Lexy Bates MA - 02/25/2024 10:48 AM EDT Pt notified. Rx at Medical records for crab picker. Lexy Bates MA * Telephone Encounter [...] to the patient. Order pended for 2022 dates (per patient request since she is paying those bills) and one for 2023. Once filed, will need to print and contact patient to come crab picker. *she is requesting to have today Renuka Coppola MA documented in this encounterMarietta Memorial Hospital03-27-2024 Telephone encounter Note * Telephone Encounter - Olimpia Gomez APRN.CNP - 02/25/2024 10:40 AM EDT I printed this and signed it, can we please call her to pick it up? Thanks! [facility]03-26-2024 Telephone encounter Note* Telephone Encounter - Renuka Coppola MA - 02/24/2024 1:54 PM EDT Magnesium Oxide 400 mg two cap BID. Orders updated. Renuka Coppola MA [facility]03-26-2024 Telephone encounter Note* Telephone Encounter - Renuka Coppola MA - 02/24/2024 8:14 AM EDT LM for patient to contact office to gather info needed below. Renuka Coppola MA [facility]03-25-2024 Telephone encounter Note* Telephone Encounter [...] tomorrow) Sorry could not get done today. [facility]03-25-2024 Telephone encounter Note* Telephone Encounter [...] to print and contact patient to come crab picker. *she is requesting to have today Renuka Coppola MA [facility]03-25-2024 Miscellaneous Notes* Telephone Encounter - Severino Seaman - 02/23/2024 12:21 PM EDT Opened in error documented in this encounterMarietta Memorial Hospital03-08-2024 History of Present illness Narrative* Severino Healy RN - 02/06/2024 3:34 PM EST pcp agrees with information * Severino Healy RN - 02/06/2024 12:56 PM EST patient had inr completed at [facility] patients inr is 2.1 (patients inr range [...] for follow up INR. documented in this encounterMarietta Memorial Hospital02-08-2024 History of Present illness Narrative* Herbert Jay APRN.CNS - 01/08/2024 12:37 PM EST Continue with Coumadin dose unchanged and check INR in 4 weeks * Severino Healy RN - 01/08/2024 11:41 AM EST patient had inr completed at [facility] patients inr is 2.7 (patients inr range [...] for follow up INR. documented in this encounterMarietta Memorial Hospital12-28-2023 Discharge summary Author Sami Cool [facility] November 27, 2023 11:03am Note Date/Time November 27, 2023 11:03am [facility] Physical Therapy [facility] [address] [place] [address]. [address] [place] [address] / REHABILITATION SERVICES DISCHARGE SUMMARY MR#: [id number] Acct: [id number] Name: YOBANI REID Rep #: [id number] : 1945 78 From: Sami Cool PT, ATC Referring Dr.: Dr. Jennifer Black DO Status: REG RCR Insurance: MEDICARE PART [...] please feel free to call me at [phone]. Thank you for the referral of thispatient. Sincerely, Sami Cool, PT, ATC Balance/Gait/Functional tests Balance/Special Test Scores Functional Gait Assessment Score: 26 % Disability: 13.3400 Lower Extremity Functional Score: 61 Improvement % Improvement: 90 <Electronically signed by Sami Cool PT, ATC> 11/27/23 1103 CC: Dr. Jose De Jesus Harrington MD; Dr. Jennifer Black, DO ~ [facility] Signed [facility] Work Phone: 1(286) 249-634712-01-2023 History of Present illness Narrative* Severino Healy RN - 10/31/2023 3:28 PM EST pcp agrees with information * Severino Healy RN - 10/31/2023 10:22 AM EST patient had inr completed at [facility] patients inr is 2.7 (patients inr [...] for follow up INR. documented in this encounterMarietta Memorial Hospital11-30-2023 Miscellaneous Notes* Telephone Encounter - Minerva Ca LPN - 10/30/2023 10:40 AM EST Pt has an appt with [facility] on 11/06/23 & from that office is requesting LUZ MARIA notes. Notes faxed to her at [phone]. Minerva Ca LPN documented in this encounterMarietta Memorial Hospital11-17-2023 Miscellaneous Notes* Addendum Note - Jose De Jesus Harrington MD - 10/17/2023 9:10 AM ESTAddended by: JOSE DE JESUS HARRINGTON on: 10/17/2023 09:10 AM Modules accepted: Orders documented in this encounterMarietta Memorial Hospital11-17-2023 Instructions* Patient Instructions* Jose De [...] D 2000 units daily. documented in this encounterMarietta Memorial Hospital11-17-2023 History of Present illness Narrative* Jose De Jesus Harrington MD - 10/17/2023 8:13 AM EST Images from the original note were not included. This note was created using [employer]. Subjective Yobani Reid is a 78 year [...] Also nodule on upper lid. Going on [employer] cruise leaving this Friday. Will be 10 [...] Coronary atherosclerosis of unspecified type of vessel, [place] or graft 10/24/2009 Esophageal reflux Gastroesophageal reflux [...] 1.00 - 4.00 k/uL 1.85 1.80 1.66 [place]% % 9.5 9.1 7.7 Abs [place] <0.87 k/uL 0.76 0.64 0.62 Eosin% % [...] and cleanse lids. Follow up with Dr. Espinsoa as needed 3. Vitamin D deficiency E55.9 [...] now after inpatient rehab at TCU at [facility]. Bruising still resolving.Doing well overall Above [...] Noted that continues to follow up at [facility] but has not seen customer service leader for a while since the ones she was scheduled with left. Works well with Severino. I spent a total of 38 minutes on the date of the service which included preparing to see the patient, [id number] patient care, completing clinical documentation, performing a medically appropriate examination, counseling and educating the patient/family/caregiver, ordering medications, tests, or p rocedures, independently interpreting results (not separately reported), and communicating results to the patient/family/caregiver. Jose De Jesus Harrington MD documented in this encounterMarietta Memorial Hospital11-17-2023 Evaluation note* Diagnosis Type 2 [...] right hip, sequela documented in this encounter [facility]11-14-2023 History of Present illness Narrative* Severino Healy RN - 10/14/2023 5:03 PM EST pcp agrees with information PATIENT NOTIFIED OF INFORMATION * Severino Healy RN - 10/14/2023 3:12 PM EST patient had inr completed at [facility] patients inr is 3.5 (patients inr range [...] and advise on recommendation documented in this encounterMarietta Memorial Hospital11-13-2023 History of Present illness Narrative* Joanne Jayi, SANDEE.BUSINESS INITIATIVES MANAGER - 10/13/2023 12:33 PM EST SUBJECTIVE: Hepatitis [...] Without Long-Term Current Use of Insulin (Hcc) 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 She reports doing well at [facility] rehab facility, felt they did a very good job for her. Sleep study completed on October 09, 2023. Completed at [facility]. Notes could not tolerate mask on her face at her appointment. Has not treated PATRICIA before. She was discharged to outpatient physical therapy at [facility]. Today reports feeling improved. Using cane at [...] an upcoming cruise coming up through the [place]. Review of Systems Constitutional: Negative. Respiratory: Negative. [...] Coronary atherosclerosis of unspecified type of vessel, [place] or graft 10/24/2009 Esophageal reflux Gastroesophageal reflux [...] reports doing well since discharge home from [facility] rehab. She has outpatient PT scheduled at [facility]. 3. Pulmonary embolism without acute cor pulmonale, unspecified chronicity, unspecified pulmonary embolism type (HCC) - ICD9: 415.19, ICD10: I26.99 Continues on chronic OAC without bleeding difficulties. Due for recheck INR, can reschedule with Coumadin clinic. Herbert Jay APRN.CNS Medical Decision Making: Problems: Low: Acute, uncomplicated illness or injury Data: Unique source(s) for external note(s) reviewed: 1 Unique test result(s) reviewed: 3+ Risk: Moderate: Drug management Medical Decision Making Level: 4 - Moderate documented in [facility] Discharge summary Author Bobby Alejo [facility] October 08, 2023 7:54pm Note Date/Time October 08, 2023 7 :48pm [facility] Medical Records Department [address] [place] [address] Discharge Summary 10/08/231946 MR#: [id number] Acct: [id number] Name: YOBANI REID Rep #:[id number] : 1945 78 From: Bobby Alejo MD PCP: Dr. 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 Discharge home alone 10/09/2023, [facility]. Physical Exam Const alert General Appearance: [...] pain Additional Instructions: Discharge home alone 10/09/2023, [facility] PT. Meaningful Use Info Meaningful Use Diagnoses (Choose all that apply): None applicable Discharge Plan Admission Admit Date/Time: 09/26/23 13:10 Primary Reason for Your Visit: Debility. Attending Provider: Jennifer Black Primary Care Provider: Jose De Jesus Harrington Instructions Additional Instructions / Restrictions: Discharge home alone 10/09/2023, [facility] PT. Discharge to sleep lab for sleep [...] warfarin 5 mg tablet 5 mg PO SUTFR Protocol: Dose Management Protocol Text: Patient Instructed [...] Harrington MD; Dr. Bobby Alejo MD~ Signed [facility] Work Phone: 1(970) 350-157411-07-2023 Progress note Author Bobby Alejo [facility] October 07, 2023 9:53am Note Date/Time October 07, 2023 9 :53am [facility] Medical Records Department [address] [place] [address] Progress Note 10/07/2344 MR#: [id number] Acct: [id number] Name: YOBANI REID Rep #:[id number] : 1945 78 From: Bobby Alejo MD PCP: Dr. Jose De Jesus Harrington MD Status:AD M IN Location: [place] [address] Subjective Subjective Patient seen, examined. She is [...] reviewed the patient's lab results. 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: (7) Hypothyroidism: QUALIFIERS: [...] * Debility - PT/OT> * Pain - [place] 5/325mg 1 tablet 0700, 2 tablets 2200, [...] Cosigner Signature (if applicable): CC: ~ Signed [facility] Work Phone: 1(331) 597-745111-06-2023 Progress note Author Jennifer Kincaidjody [facility] October 06, 2023 4:56pm Note Date/Time October 06, 2023 1 1:36am [facility] Medical Records Department [address] [place] [address] Progress Note 10/06/23 1135 MR#: [id number] Acct: [id number] Name: YOBANI REID Rep #:[id number] : 1945 78 From: Jennifer Black DO PCP: Dr. Jose De Jesus Harrington MD Status:AD M IN Location: [id number] Subjective Subjective Pao was seen on team [...] a sleep study the night of the 9th post DC from rehab. 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 6. Weight loss was advised. Charges/Coding Visit Charges Inpatient E&M: 53564 Subs Hosp L2 10/06/23 1656 <Electronically signed by Jennifer Black DO> Jennifer Black DO Cosigner Signature (if applicable): CC: ~ Signed [facility] Work Phone: 1(773) 782-244911-04-2023 Progress note Author Jennifer Wayne [facility] October 04, 2023 6:05pm Note Date/Time October 04, 2023 1 2:38pm [facility] Medical Records Department [address] [place] [address] Progress Note 10/04/23 1233 MR#: [id number] Acct: [id number] Name: YOBANI REID Rep #:[id number] : 1945 78 From: Jennifer Black DO PCP: Dr. Jose De Jesus Harrington MD Status:AD M IN Location: [place] [address] Subjective Subjective Afebrile VSS Maintaining appropriate oxygen saturation on RA Oral intake is good Discussed with nursing - no problems that need addressed. She is incontinent ofurine Reviewed the PT/OT notes - she is getting stronger and ambulating further. Using a WW at [facility]. Minimal pain in the R hip and [...] subsequent encounter (5) Leg pain, right: (6) prison current use of anticoagulant: (7) Hypothyroidism: QUALIFIERS: [...] detail: with other circulatory complications Diabetes mellitus long term acute care registered nurse insulin use: without detention use Qualified Code(s): [...] She would like to be referred to [facility] for balance training and muscle strengthening at [place]. She knows she should lose some weight and this would help ambulation as well. Charges/Coding Visit Charges Inpatient E&M: 80611 Subs Hosp L2 10/04/23 1805 <Electronically signed by Jennifer Black DO> Jennifer Nuñez Signature (if applicable): CC: ~ Signed [facility] Work Phone: 1(572) 953-639811-04-2023 Progress note Author Jennifer Black [facility] October 04, 2023 5:51pm Note Date/Time October 02, 2023 6 :32pm [facility] Medical Records Department [address] [place] [address] Progress Note 10/02/23 1828 MR#: [id number] Acct: [id number] Name: YOBANI REID Rep #:[id number] : 1945 78 From: Jennifer Clarke Wayne PCP: Dr. Jose De Jesus Harrington MD Status:AD M IN Location: [place] [address] Subjective Subjective Afebrile VSS Maintaining appropriate oxygen [...] from rehab. Charges/Coding Visit Charges Inpatient E&M: 89082 Subs Hosp L2 10/04/23 1751 <Electronically signed by Jennifer Black DO> Jennifer Black DO Cosigner Signature (if applicable): CC: ~ Signed [facility] Work Phone: 1(909) 420-229511-02-2023 Progress note Author Jennifer Black [facility] October 02, 2023 6:28pm Note Date/Time October 01, 2023 1 0:58am [facility] Medical Records Department [address] [place] [address] Progress Note 10/01/23 1052 MR#: [id number] Acct: [id number] Name: YOBANI REID Rep #:[id number] : 1945 78 From: Jennifer Black DO PCP: Dr. 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 transplanted heart: [place] heart QualifiedCode(s): I25.10 - Atherosclerotic heart disease of [place] coronary artery without angina pectoris (13) Obesity: [...] detail: with other circulatory complications Diabetes mellitus [place] [facility] insulin use: without long term acute care registered nurse use Qualified Code(s): E11.59 - Type 2 [...] hemoccult stool. Charges/Coding Visit Charges Inpatient E&M: 11803 Subs Hosp L2 10/02/238 <Electronically signed by Jennifer Black DO> Jennifer Black DO Cosign Signature (if applicable): CC: ~ Signed [facility] Work Phone: 1(880) 817-934710-31-2023 Progress note Author Jennifer Black [facility] September 30, 2023 5:48pm Note Date/Time September 30, 2023 3 :58pm [facility] Medical Records Department [address] [place] [address] Progress Note 09/30/23 1556 MR#: [id number] Acct: [id number] Name: YOBANI REID Rep #:[id number] : 1945 78 From: Jennifer Black DO PCP: Dr. 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 transplanted heart: [place] heart QualifiedCode(s): I25.10 - Atherosclerotic heart disease of [place] coronary artery without angina pectoris (13) Obesity: [...] detail: with other circulatory complications Diabetes mellitus [facility] [facility] insulin use: without long term acute care registered nurse use Qualified Code(s): E11.59 - Type 2 [...] is normal. Charges/Coding Visit Charges Inpatient E&M: 29547 Subs Hosp L2 09/30/23 6689 <Electronically signed by Jennifer Black DO> Jennifer Black DO Cosigner Signature (if applicable): CC: ~ Signed [facility] Work Phone: 1(242) 380-621010-31-2023 Progress note Author Jennifer Black [facility] September 30, 2023 3:56pm Note Date/Time September 29, 2023 6 :51pm [facility] Medical Records Department [address] [place] [address] Progress Note 09/29/23 185 MR#: [id number] Acct: [id number] Name: YOBANI REID Rep #:[id number] : 1945 78 From: Jennifer Black DO PCP: Dr. 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 transplanted heart: [place] heart QualifiedCode(s): I25.10 - Atherosclerotic heart disease of [place] coronary artery without angina pectoris (13) Obesity: [...] detail: with other circulatory complications Diabetes mellitus long term acute care registered nurse insulin use: without long term acute care registered nurse use Qualified Code(s): E11.59 - Type 2 diabetes mellitus with other circulatory complications PLAN: Diet controlled. Not on meds. PLAN: Plan 1. Continue therapy 2. No changes to the drug regimen today 3. I recommend that she consider outpatient therapy at either [facility] or [facility] to strengthen her muscles, tamia the core, and help with balance. She is agreeable to this plan. Charges/Coding Visit Charges Inpatient E&M: 78673 Subs Hosp L2 09/30/23 8473 <Electronically signed by Jennifer Black DO> Jennifer Black DO Cosign Signature (if applicable): CC: ~ Signed [facility] Work Phone: 1([phone]) 784-209110-31-2023 History and physical note Author Jennifer Black [facility] September 30, 2023 3:51pm Note Date/Time September 29, 2023 6 :50pm [facility] Medical Records Department [address] [place] [address] Post Admission Physician Eval 09/29/23 1849 MR#: [id number] Acct: [id number] Name: YOBANI REID Rep #:[id number] : 1945 78 From: Jennifer Tricia Sanjivjody NEFF PCP: Dr. Jose De Jesus Harrington MD Status:AD M IN Location: [place] [address] Admission Information Primary Diagnosis:: Debility secondary to [...] and Depression Risk of Complications DVT: UNA Hose and - (Continue warfarin) Bleeding: Monitor Lab [...] Splinting and Otheractivities as determined Patient requires 24/7 Rehabilitation Nursing for: Pain Issues, Identifying and preventing risk factors, Monitoring and reporting current medical conditions, Assisting with ambulation, transfer, and all ADL's, Teaching patients about disease process and medications, Family teaching, Providing safe environment, Bowel and Bladder Issues, Skin integrity and Medication Management 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: Discharge Planning, Arranging Home [...] Therapy Was Preadmission Assessment Accurate?: Yes 09/30/23 3474 <Electronically signed by Jennifer Black DO> Cosigner Signature (if applicable): CC: ~ Signed [facility] Work Phone: 1(164) 539-440210-31-2023 History and physical note Author Jennifer Black [facility] September 30, 2023 3:43pm Note Date/Time September 26, 2023 3 :50pm [facility] Medical Records Department [address] [place] [address] History & Physical Exam 09/26/23 1547 MR#: [id number] Acct: [id number] Name: YOBANI REID Rep #:[id number] : 1945 78 From: Jennifer Black DO PCP: Dr. Jose De Jesus Harrington MD Status:AD M IN Location: [id number] HPI - General General Date of Admission: 09/26/23 [...] bladder who presented to the ED at [facility] on 09/25/23 c/o of severe RLE [...] to the acute inpatient rehab unit at [facility] on 09/26/2023 for 3 hours of [...] a GI consult or a colonoscopy. [facility] Medical History (Updated 09/30/23 @ 14:[address] Jennifer Black, ) Arthritis Atherosclerotic heart disease of [place] coronary artery without angina pectoris Bladder disease Cardiology follow-up encounter Diabetes DM2 (diabetes mellitus, type 2) Essential hypertension Former smoker GERD (gastroesophageal reflux disease) High cholesterol History of echocardiogram History of gastric ulcer History of pulmonary embolism (~08/2017) History of stress test History of ulceration Hypertension Hypothyroidism Incisional hernia, without obstruction or gangrene Leg cramps prison current use of anticoagulant Mixed hyperlipidemia Obesity Post-menopausal Preop cardiovascular exam Presence 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 (10/25/19) Pulmonary embolism (08/2017) RBBB (right bundle branch block) Thyroid disease Wears glasses Home Medications aspirin 81 mg chewable tablet 81 mg PO QHS hearth 05/10/14 [History Last Taken 10/25/19] levothyroxine 112 [...] tendon of lower back, subsequent encounter (6) prison current use of anticoagulant: (7) Hypothyroidism: QUALIFIERS: Hypothyroidism type: acquired Qualified Code(s): E03.9 - Hypothyroidism, unspecified (8) GERD (gastroesophageal reflux disease): QUALIFIERS: Esophagitis presence: esophagitis presence not specified Qualified Code(s): K21.9 - Gastro-esophageal reflux disease without esophagitis (9) Presence 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: (10) Mixed hyperlipidemia: (11) Essential hypertension: (12) Atherosclerotic heart disease of [place] coronary artery without angina pectoris: QUALIFIERS: [place] vs. transplanted heart: [place] heart QualifiedCode(s): I25.10 - Atherosclerotic heart disease of [place] coronary artery without angina pectoris (13) Obesity: [...] complication status: with circulatory complication Diabetes mellitus [facility] [facility] insulin use: without [place] [facility] use Qualified Code(s): E11.59 - Type 2 [...] on Friday. Charges/Coding Visit Charges Inpatient E&M: 09229 Subs Hosp L2 09/30/23 1540 <Electronically signed by Jennifer Black DO> Cosigner Signature (if applicable): CC: Dr. Jose De Jesus Harrington MD; Dr. Jennifer Black DO~ Signed [facility] Work Phone: 1(688) 452-668610-26-2023 Discharge summary Author Alfredito Bowie [facility] September 25, 2023 6:49pm Note Date/Time September 25, 2023 5 :55pm [facility] Medical Records Department [address] [place] [address] Emergency Department Summary 09/25/23 MR#: [id number] Acct: [id number] Name: YOBANI REID Rep #:[id number] : [...] or loss of consciousness, or other injury. [facility] Medical History Arthritis Atherosclerotic heart disease of [place] coronary artery without angina pectoris Bladder disease Cardiology follow-up encounter Diabetes DM2 (diabetes mellitus, type 2) Essential hypertension Former smoker GERD (gastroesophageal reflux disease) High cholesterol History of echocardiogram History of gastric ulcer History of pulmonary embolism (~08/2017) History of stress test History of ulceration Hypertension Hypothyroidism Incisional hernia, without obstruction or gangrene Leg cramps prison current use of anticoagulant Mixed hyperlipidemia Obesity [...] comorbidities she will begiven 10 tablets of [place] to take for analgesia. I reviewed her [...] warfarin 5 mg (1.5 Tabs) on MO, TU, WE Rx Instructions: Current dose 7.5 mg [...] your Primary Care Provider. Call [facility] ([phone]) or report to the closest Emergency Room. Call 911 if necessary. 09/25/231848 <Electronically signed by Alfredito Bowie MD> Cosigner Signature (if applicable): CC: Dr. Jose De Jesus Harrington MD ~ Signed [facility] Work Phone: 1(501) 709-831910-20-2023 History of Present illness Narrative* Severino Healy RN - 09/19/2023 3:47 PM EDT PATIENT NOTIFIED OF INFORMATION * Olimpia Gomez APRN.CNP - 09/19/2023 11:16 AM EDT Agreed. Thanks! * Severino Healy RN - 09/19/2023 10:42 AM EDT patient had inr completed at [facility] patients inr is 3.2 (patients inr range [...] and advise on recommendation documented in this encounterMarietta [facility] Hospital10-16-2023 History of Present illness Narrative* Britney Fang PA-C - 09/15/2023 9:07 AM EDT HISTORY AND PHYSICAL Yobani Jeffrey Jeanette 1945 REFERRING PHYSICIAN: Olimpia Gomez APRN.INSPECTOR AND MENDER CHIEF COMPLAINT: Consult (Colonoscopy consult. ) HPI: [...] Coronary atherosclerosis of unspecified type of vessel, [place] or graft 10/24/2009 Esophageal reflux Gastroesophageal reflux [...] HYSTERECT W/WO RMVL TUBE OVARY 09/04 Dr Mike Rai/endometrial hyperplasia w/o dysplasia TRANSCATH [...] entered by the nurse and reviewed by nj Nursing Notes: Aidee Leggett RN 09/15/2023 9:06 [...] mail. Britney Fang PA-C documented in this encounterMarietta [facility] Hospital10-16-2023 Nurse Note* Aidee Leggett RN [...] 07/27/2019 Aidee Leggett RN documented in this encounterMarietta [facility] Hospital10-10-2023 Miscellaneous Notes* Telephone Encounter - Ayde Desouza RN - 09/09/2023 1:18 PM EDT Patient notified of results and provider's instructions. Patient verbalizes understanding. Ayde Desouza RN documented in this encounterMarietta [facility] Hospital10-02-2023 History of Present illness Narrative* [...] this actually had constipation issues. Dr. Wilkinson 2018 last colonoscopy, repeat colonoscopy in 5. 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 SIM Frias documented in this encounterMarietta [facility] Hospital09-22-2023 History of Present illness Narrative* Severino Healy RN - 08/22/2023 11:41 AM EDT pcp agrees with information * Severino Healy RN - 08/22/2023 10:24 AM EDT patient had inr completed at [facility] patients inr is 3.0 (patients inr range [...] follow u p INR. documented in this encounterMarietta [facility] Hospital08-17-2023 History of Present illness Narrative* Herbert Jay APRN.CNS - 07/17/2023 11:26 AM EDT Continue with Coumadin dose unchanged and check INR in 1 month * Severino Healy RN - 07/17/2023 10:18 AM EDT patient had inr completed at [facility] patients inr is 2.3 (patients inr range [...] for follow up INR. documented in this encounterMarietta [facility] Hospital07-18-2023 History of Present illness Narrative* Severino Healy RN - 06/17/2023 4:26 PM EDT pcp agrees with information * Severino Healy RN - 06/17/2023 10:38 AM EDT patient had inr completed at [facility] patients inr is 2.8 (patients inr range [...] for follow up INR. documented in this encounterMarietta [facility] Hospital06-29-2023 History of Present illness Narrative* Herbert Jay APRN.CNS - 05/29/2023 3:43 PM EDT Continue with Coumadin dose unchanged and check INR in 3 weeks * Severino Healy RN - 05/29/2023 10:46 AM EDT patient had inr completed at [facility] patients inr is 2.6 (patients inr range [...] in 3 weeks (06/17/23 - due to sabine nt has ellen with TECHNOLOGY DIRECTOR also this date) for follow up INR. documented in this encounterMarietta [facility] Hospital06-01-2023 History of Present illness Narrative* Herbert Jay APRN.CNS - 05/01/2023 1:28 PM EDT Continue with Coumadin dose unchanged and check INR in 4 weeks * Severino Healy RN - 05/01/2023 10:40 AM EDT patient had inr completed at [facility] patients inr is 2.6 (patients inr range [...] for follow up INR. documented in this encounterMari[facility]05-09-2023 Miscellaneous Notes* Telephone Encounter - BENITO Smith - 04/08/2023 2:45 PM EDT 1st attempt to call patient, left voicemail. Romelia Farmer, PSS April 08, 2023 2:46 PM * Telephone Encounter - eHrbert Jay APRN.CNS - 04/08/2023 1:31 PM EDT OK * Telephone Encounter - Venkat Garcia - 04/05/2023 1:26 PM EDT Can [...] Deleon RN * Telephone Encounter - Herbert SANDEE Jay.BUSINESS INITIATIVES MANAGER - 04/01/2023 4:57 PM EDT Please let [...] Abs Lymph 1.00 - 4.00 k/uL 1.85 [place]% % 9.5 Abs [place] <0.87 k/uL 0.76 Eosin% % 4.8 Abs [...] - 65 pg/mL 25 documented in this encounterMarietta [facility]05-09-2023 Instructions* Patient Instructions* Herbert Jay [...] your usual activities immediately. documented in this encounterMarietta [facility] Hospital05-04-2023 History of Present illness Narrative* Herbert Jay APRN.CNS - 04/03/2023 12:46 PM EDT Continue with Coumadin dose unchanged and recheck INR in 4 weeks * Severino Healy RN - 04/03/2023 11:25 AM EDT patient had inr completed at [facility] patients inr is 2.7 (patients inr range [...] for follow up INR. documented in this encounterMarietta [facility]04-20-2023 History of Present illness Narrative* Herbert Jay APRN.CNS - 03/20/2023 3:34 PM EDT Continue with Coumadin dose unchanged and check INR in 2 weeks * Severino Healy RN - 03/20/2023 1:37 PM EDT patient had inr completed at [facility] patients inr is 2.3 (patients inr range [...] reading since dose change documented in this encounterMarietta [facility]04-14-2023 History of Present illness Narrative* Severino Healy RN - 03/14/2023 2:37 PM EDT per pcp patient is to hold today and 7.5mg Wed and 5mg all other days PATIENT NOTIFIED OF INFORMATION * Severino Healy RN - 03/14/2023 10:56 AM EDT patient had inr completed at [facility] patients inr is 3.6 (patients inr range [...] up inr on 03/20/23 documented in this encounterMarietta [facility] Hospital04-13-2023 Instructions* Patient Instructions* Herbert Jay APRN.CNS - 03/13/2023 12:41 PM EDT Gently wash your hand and thumb with antibacterial soap and water. Apply mupirocin ointment and cover with gauze. Change dressing daily. Soak the dressing with water if it is sticking to you documented in this encounterMarietta [facility] Hospital04-13-2023 History of Present illness Narrative* Herbert Jay, SANDEE.BUSINESS INITIATIVES MANAGER - 03/13/2023 11:40 AM EDT SUBJECTIVE: BP CONTROLLED (<130/80) Never done DIABETIC FOOT EXAM due on 12/18/2022 JACKSON Reid is a 77 year old female. 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 She was seen at [facility] on March 05, 2023 after sustaining [...] check and suture removal. She returned to [facility] ER on March 08, 2023 for [...] Coronary atherosclerosis of unspecified type of vessel, [place] or graft 10/24/2009 Esophageal reflux Gastroesophageal reflux [...] recheck laceration check INR 03/14 Herbert Jay APRN.CNS Medical Decision Making: Problems: Moderate: Acute complicated injury Data: Independent interpretation of test from other physician/QHCP Risk: Moderate: Drug management Medical Decision Making Level: 4 - Moderate documented in this encounterMarietta [facility] Hospital04-10-2023 Miscellaneous Notes* Telephone Encounter - [...] fall on Friday and was seen in [facility] ER but was having no back [...] to go to ER. documented in this encounterMarietta [facility] Hospital04-08-2023 Miscellaneous Notes* Telephone Encounter - Aaliyah Reed LPN - 03/08/2023 8:51 AM EDT Patient calling regarding new pain related to recent fall. Conferenced to Melvina in Dr. Hsu's office at phone number ([phone]) for assistance. Aaliyah Reed LPN documented in this encounterMarietta [facility] Hospital03-27-2023 History of Present illness Narrative* Severino Healy RN - 02/24/2023 4:03 PM EDT pcp agrees with information * Severino Healy RN - 02/24/2023 9:31 AM EDT patient had inr completed at [facility] patients inr is 2.6 (patients inr range [...] for follow up INR. documented in this encounterMarietta [facility] Hospital03-27-2023 History of Present illness Narrative* Herbert Jay APRN.BUSINESS INITIATIVES MANAGER - 02/24/2023 10:00 AM EDT SUBJECTIVE Yobani [...] Level: 3 - Low documented in this encounterMarietta [facility] Hospital03-24-2023 History of Present illness Narrative* Herbert Jay APRN.CNS - 02/21/2023 2:00 PM EDT SUBJECTIVE Yobani Reid is a 77 [...] Level: 3 - Low documented in this encounterMarietta [facility] Hospital03-16-2023 History of Present illness Narrative* Herbert Jay APRN.CNS - 02/13/2023 12:55 PM EDT Continue with Coumadin dose unchanged and check INR in 4 weeks * Severino Healy RN - 02/13/2023 10:29 AM EDT patient had inr completed at [facility] patients inr is 2.8 (patients inr range [...] for follow up INR. documented in this encounterMarietta [facility] Hospital02-20-2023 Miscellaneous Notes* Telephone Encounter - [...] labs: 12/17/22 last TSH documented in this encounterMarietta [facility] Hospital01-18-2023 History of Present illness Narrative* Severino Healy RN - 12/18/2022 2:17 PM EST pcp agrees with information * Severino Healy RN - 12/18/2022 10:08 AM EST patient had inr completed at [facility] patients inr is 2.0 (patients inr range [...] for follow up INR. documented in this encounterMarietta [facility] Hospital12-22-2022 History of Present illness Narrative* Severino Healy RN - 11/21/2022 4:57 PM EST per verbal order pcp agrees with iformation * Severino Healy RN - 11/21/2022 10:34 AM EST patient had inr completed at [facility] patients inr is 2.4 (patients inr range [...] for follow up INR. documented in this encounterMarietta [facility] Hospital12-01-2022 History of Present illness Narrative* Herbert Jay APRN.CNS - 10/31/2022 3:54 PM EST Continue with Coumadin dose unchanged and check INR in 3 weeks * Severino Healy RN - 10/31/2022 11:13 AM EST patient had inr completed at [facility] patients inr is 2.1 (patients inr range [...] for follow up INR. documented in this encounterMarietta [facility] Hospital10-27-2022 History of Present illness Narrative* Herbert Jay APRN.CNS - 09/26/2022 12:53 PM EDT Continue current coumadin dose unchanged and recheck INR one month * Severino Healy RN - 09/26/2022 12:04 PM EDT patient had inr completed at [facility] patients inr is 2.1 (patients inr range [...] for follow up INR. documented in this encounterMarietta [facility] Hospital10-27-2022 Miscellaneous Notes* Telephone Encounter - Severino Healy RN - 09/26/2022 12:06 PM EDT patients orders for coumadin clinic inr's has at this time. new order has been pended for approval if possible so that patient can continue to get inr's completed thru the coumadin clinic. coumadin clinic nurse only needs called if order can not be approved. documented in this encounterMarietta [facility] Hospital09-29-2022 History of Present illness Narrative* Herbert Jay APRN.CNS - 08/29/2022 2:20 PM EDT Continue Coumadin dose unchanged and check INR in 4 weeks * Severino Healy RN - 08/29/2022 1:46 PM EDT patient had inr completed at [facility] patients inr is 2.2 (patients inr range [...] follow u p INR. documented in this encounterMarietta [facility] Hospital09-15-2022 Miscellaneous Notes* Telephone Encounter - Sheri De La Cruz LPN - 08/15/2022 5:12 PM EDT Patient notified of providers message and verbalized understanding. * Telephone Encounter - Herbert Jay APRN.CNS - 08/15/2022 5:05 PM EDT Continue Coumadin dose unchanged and recheck INR 2 weeks * Telephone Encounter - Annabella Moura LPN - 08/14/2022 9:42 AM EDT Last INR: [facility] lab draw 2 .2 08/13/2022 Current dose of coumadin is: 7.5mg Fri,Fri and 5mg all other days . Last date of dose change: 08/07/22. Previous INR (date and result): 08/07/22 was 3.7 Additional Clinical Information or narrative: INR goal is 2-3. Pt findings are negative. documented in this encounterMarietta [facility] Hospital09-10-2022 History of Present illness Narrative* Jose De Jesus Harrington MD - 08/10/2022 3:59 PM EDT Filed orders to follow up on UTI symptoms and microscopic hematuria. May choose to do studies through Dr. Pteers at [facility] if prefers. MyChart message through results notes was sent regarding urine studies being ordered as noted abovebut did not discuss follow up with Dr. Peters as noted above documented in this encounterMarietta Memorial Hospital09-06-2022 Miscellaneous Notes* Telephone Encounter - [...] short-term supply of coumadin be sent to [facility] in [place]. See other refill request for long term acute care registered nurse coumadin supply as well. Please call pt with update of refills. Thank you. documented in this encounterMarietta [facility] Hospital09-06-2022 Miscellaneous Notes* Telephone Encounter - [...] an emergency amount to be sentto [facility] in [place] along with the mail order. No need to notify patient. Cesia Julien documented in this encounterMarietta [facility] Hospital09-02-2022 Miscellaneous Notes* Telephone Encounter - Britney Deleon RN - 08/02/2022 3:45 PM EDT Pt called in today and reports she forgot her appointment with the Coumadin Clinic. Pt was given the choice of getting it done at the lab today or Severino said she could fit her in on Friday08/07/22 at 1045. Pt was scheduled on Friday. documented in this encounterMarietta [facility] Hospital08-31-2022 History of Present illness Narrative* Jose De Jesus Harrington MD - 07/31/2022 2:54 PM EDT This note was created using CHEQROOMriter. Subjective Yobani Reid is a 77 year [...] Coronary atherosclerosis of unspecified type of vessel, [place] or graft 10/24/2009 Esophageal reflux Gastroesophageal reflux [...] De Jesus Harrington MD documented in this encounterMarietta [facility] Hospital08-30-2022 History of Present illness Narrative* Severino Healy RN - 07/30/2022 4:29 PM EDT per pcp she agrees with information * Severino Healy RN - 07/30/2022 11:26 AM EDT patient had inr completed at [facility] patients inr is 2.0 (patients inr range [...] for follow up INR. documented in this encounterMarietta [facility] Hospital08-26-2022 History of Present illness Narrative* Severino Healy RN - 07/26/2022 3:48 PM EDT per pcp pt is to continue lovenox twice daily and 10mg Fri Sun and 7.5mg all other days PATIENT NOTIFIED OF INFORMATION * Severino Healy RN - 07/26/2022 12:20 PM EDT patient had inr completed at [facility] patients inr is 1.3 (patients inr range [...] up inr on 07/30/22 documented in this encounterMarietta [facility] Hospital08-19-2022 Miscellaneous Notes* Telephone Encounter - [...] Revieweddirections and PA completed. Auth number is [id number]. They will fax response in 48-72 hours. documented in this encounterMarietta [facility] Hospital08-18-2022 Miscellaneous Notes* Telephone Encounter - [...] Lovenox instructions faxed to Dr Peters at [phone]. Minerva Ca LPN * Telephone Encounter - [...] Dr. Peters. Any questions please call bridgett [phone]. documented in this encounterMarietta [facility] Hospital08-12-2022 History of Present illness Narrative* Severino Healy RN - 07/12/2022 4:03 PM EDT per pcp she agrees with information * Severino Healy RN - 07/12/2022 10:23 AM EDT patient had inr completed at [facility] patients inr is 2.4 (patients inr range [...] for follow up INR. documented in this encounterMarietta [facility] Hospital07-19-2022 Instructions* Patient Instructions* Herbert Jay APRN.CNS - 06/18/2022 10:46 AM EDT Check to see if your insurance covers shingles vaccine and what location to get the vaccine - usually best covered at your local pharmacy where you get prescriptions filled Schedule an appt with Dr Peters documented in this encounterMarietta [facility] Hospital07-19-2022 History of Present illness Narrative* [...] Without Long-Term Current Use of Insulin (Hcc) prison current use of anticoagulant History of Pulmonary Embolus (Pe) Hypertensive Kidney Disease With Stage 3a Chronic Kidney Disease (Hcc) Vitamin D Deficiency Hypomagnesemia She notes she had a mild case of COVID recently. Now recovered. 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 [facility]. Bleeding difficulties: none report Note she has seen Dr. Peters regarding bladder issues. Procedure was recommended but not covered by her insurance. She may check to see if she could possibly do this meb-ug-hdsvtb. Needs to schedulea follow-up appointment with her. 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 Acquired [...] as able such as walking. Herbert Jay APRN.CNS Medical Decision Making: Problems: Moderate: 2+ stable chronic illnesses Data: Unique test(s) ordered: 3+ Risk: Moderate: Drug management Medical Decision Making Level: 4 - Moderate documented in this encounterMarietta [facility] Hospital07-08-2022 History of Present illness Narrative* Herbert Jay APRN.CNS - 06/07/2022 3:42 PM EDT Continue with Coumadin dose unchanged and check INR in 1 month * Severino Healy RN - 06/07/2022 10:19 AM EDT patient had inr completed at [facility] patients inr is 2.4 (patients inr range [...] for follow up INR. documented in this encounterMarietta [facility] Hospital06-16-2022 Miscellaneous Notes* Telephone Encounter - Britney Deleon RN - 05/16/2022 3:47 PM EDT Pt called and is notified of providers message and instructions. Pt voices understanding. Sent information on Paxlovid to Pt in [employer]. Britney Deleon RN * Telephone Encounter - [...] EDT Nirmatrelvir/Ritonavir (Paxlovid) Eligibility and Patient Discussion [facility] Formulary Restriction Criteria: Adult outpatients [...] of transplant or on systemic therapy for ifbub-refomc-batt disease [] CAR T-cell/other cellular therapy recipients [...] start the paxlovid. Please sent to [facility]. She will review my chart whatever you [...] she may read all the information on MyChart, If she declines, that is fine. Continue [...] FEVER:no 7. RESPIRATORY STATUS: no issues 8. GTOBNT-SKZA-XJKRI: same 9. HIGH RISK DISEASE:yes-see history 10. VACCINE: yes 11. BOOSTER: yes 12. :n/a 13. OTHER SYMPTOMS: Denies fever, chills, fatigue, headache, loss of smell or taste, muscle pain, or sore throat 14. O2 SATURATION MONITOR: Does not have Protocols used: CORONAVIRUS (COVID-19) DIAGNOSED OR [id number] documented in this encounterMarietta Memorial Hospital06-16-2022 Instructions* Patient Instructions* Jose De Jesus Harrington MD - 05/16/2022 3:08 PM EDT FACT SHEET FOR PATIENTS, PARENTS, AND CAREGIVERS EMERGENCY USE AUTHORIZATION (EUA) OF PAXLOVID FOR CORONAVIRUS DISEASE 2019 (COVID-19) You are being given this Fact Sheet because your healthcare provider believes it is necessary to provide you with PAXLOVID for the treatment of qdub-kc-iuipamwy coronavirus disease (COVID-19) caused by the SARS-CoV-2 [...] virus. COVID-19 illnesses have ranged from very wsin-mn-ockpzj, including illness resulting in . While information [...] is an investigational medicine used to treat glya-wl-bkipytyq COVID-19 in adults and children [12 years [...] of using PAXLOVID to treat people with kwnq-li-jschzktz COVID-19. The FDA has authorized the emergency use of PAXLOVID for the treatment of jrpk-dq-bkpizshx COVID-19in adults and children [12 years of [...] the medicines you take, including prescription and hszl-sjs-nionjpb medicines, vitamins, and herbal supplements. Some medicines [...] oral midazolam Apalutamide Carbamazepine, phenobarbital, phenytoin Rifampin Reagan s Wort (hypericum perforatum) Taking PAXLOVID with [...] (remdesivir) is FDA-approved for the treatment of olos-hh-qwfwrvbv COVID-19 in certain adults and children. Talk with your doctor to see if Veklury is appropriate for you. Like PAXLOVID, FDA may also allow for the emergency use of other medicines to treat people with COVID-19. Go to https://www.fda.gov/qtapeinvy-rwfftacpvuou-dtqoqlxdymd/ubv-wpvjc-sjronvphnw-and- policy-framework/mbibsjhhb-jsd-zgwtrmvyakofp for information on the emergency use of [...] if I am or ? There is oenologist treating women or mothers with PAXLOVID. For [...] not go away. Report side effects to [place] [employer] at www.fda.gov/medJobs2Webtch or call 4-821-CVC0310 or you can reportside effects to [employer] at the contact information provided below. Website Fax number Telephone number [employer]gr How should I store PAXLOVID? Store PAXLOVID [...] (EUA). The EUA is supported by a Bicycle Ii Assembler of Health and Human Service (HHS) declaration that circumstances exist to justify the emergency use of drugs and biological productsduring the COVID-19 pandemic. PAXLOVID for the treatment of dnrx-yc-bbuvjquk COVID-19 in adults and children [12 years [...] telephone number provided below. Website Telephone number wwwInternet REIT (4-199-J13-GKDE) You can also go to www.[employer]elvision or call for more information. Pfizer Distributed by [employer] [place] [address] LAB-1494-2.1 Revised: 15 February 2022 documented in this encounterMarietta [facility] Hospital06-03-2022 History of Present illness Narrative* Severino Healy RN - 05/03/2022 12:23 PM EDT pcp agrees * Severino Healy RN - 05/03/2022 10:22 AM EDT patient had inr completed at [facility] patients inr is 2.6 (patients inr range [...] for follow up INR. documented in this encounterMarietta [facility] Hospital03-25-2022 History of Present illness Narrative* Severino Healy RN - 02/22/2022 4:20 PM EDT per pcp she agrees with information * Severino Healy RN - 02/22/2022 10:28 AM EDT patient had inr completed at [facility] patients inr is 2.4 (patients inr range [...] verbalized understanding. Presently scheduled in 2 weeks (03/08/22) for follow up INR since this is the first normal reading since dose change documented in this encounterMarietta Memorial Hospital01-18-2022 History of Present illness Narrative* Jose De Jesus Harrington MD - 12/18/2021 9:23 AM EST This note was created using Triumfantter. Subjective Yobani Reid is a 76 year old female. Patient presents with: Follow Up SUBJECTIVE: Yobani Reid is a 76 year old year old lady here today for 8 month follow up appointment for review of medical conditions. Noted that had labs through [facility]. Blood sugars lo,78, 86 December. Prior also 70 to 80s. Every Friday fasting in AM. 5 to 6 days a week on treadmill. 20 to 30 minutes per day. Reads while walking. Following with Dr. Peters for urologist.To have cystoscopy since not responding to multiple meds. 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 Seen recently. Gets DM shoes ordered through him. Memory issues noted. Names that cannot recall right away. Recalling numbers from treadmill for log a few steps later. PAST MEDICAL HISTORY Diagnosis Date Acute appendicitis 05/11/14 Allergic rhinitis, cause unspecified Allergic rhinitis CKD (chronic kidney disease) 02/23/2010 Coronary atherosclerosis of unspecified type of vessel, [place] or graft 10/24/2009 Esophageal reflux Gastroesophageal reflux [...] disease, without long-term current use of insulin ([facility]) E11.22 HGB A1C N18.30 ALBUMIN/CREAT RATIO RND UR BASIC METABOLIC PNL 2. Essential hypertension I10 CBC BASIC METABOLIC PNL 3. Acquired hypothyroidism E03.9 TSH BLD T4 FREE/FREE THYROX 4. Mixed hyperlipidemia E78.2 5. Hypomagnesemia E83.42 MAGNESIUM BLD 6. 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 Encounter for long-term current use of medication Z79.899 HGB A1C MAGNESIUM BLD CBC VITAMIN D 25 HYDROXY ALBUMIN/CREAT RATIO RND UR TSH BLD T4 FREE/FREE THYROX BASIC METABOLIC PNL ASSESSMENT/PLAN: 1. Controlled type 2 diabetes mellitus with stage 3 chronic kidney disease, without long-term current use of insulin ([facility]) - ICD9: 250.40, 585.3, ICD10: E11.22, N18.30 [...] indicated - VITAMIN D 25 HYDROXY 7. prison current use of anticoagulant - ICD9: V58.61, [...] which included preparing to see the patient, xmyl-wy-gvla patient care, completing clinical documentation, obtaining and/or reviewingseparately obtained history, performing a medically appropriate examination, counseling and educating the patient/family/caregiver and ordering medications, tests, or procedures. 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 Mixed hyperlipidemia chronic 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 25 chronic Debility acute Fall acute Leg pain, right acute Contusion, hip and thigh acu te Debility acute Fall acute History of pulmonary embolism 2016 acute Leg pain, right acute Lumbar strain acute Overactive bladder acute Supratherapeutic INR acute 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 DM2 (diabetes mellitus, type 2) chronic Essential hypertension chron ic GERD (gastroesophageal reflux disease) chronic Hypothyroidism chronic prison current use of anticoagulant chronic Mixed hyperlipidemia chronic Obesity chronic 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 25 chronic [facility] Work Phone: 1(759) 525-458411-25-2019 Evaluation note* Diagnosis Onset Date Resolution Status Essential hypertension chron ic prison current use of anticoagulant chronic Mixed hyperlipidemia chronic 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 25 chronic Debility acute Fall resolved Leg pain, right resolved Debility acute History of pulmonary embolism 2016 acute Overactive bladder acute 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 DM2 (diabetes mellitus, type 2) chronic Essential hypertension chron ic GERD (gastroesophageal reflux disease) chronic Hypothyroidism chronic prison current use of anticoagulant chronic Mixed hyperlipidemia chronic Obesity chronic 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 25 chronic Contusion, hip and thigh res olved Fall resolved Leg pain, right resolved Lumbar strain resolved Supratherapeutic INR resolve d [facility] Work Phone: 1(751) 589-585503-24-2014 History of Past illness Narrative* Problem Noted Date Resolved Date Diabetes mellitus type 2, controlled, without co mplications 02/21/2014 01/15/2018 Occult GI bleeding 03/03/2013 08/23/2013 Impaired fasting glucose 11/13/2005 015 Allergic rhinitis, cause unspecified 06/06/2009 Overview: Allergic rhinitis documented as of this encounter (statuses as of 02/22/2022) [facility]03-[facility] History of Past illness Narrative* Problem Noted Date Resolved Date Diabetes mellitus type 2, controlled, without co mplications 02/21/2014 01/15/2018 Occult GI bleeding 03/03/2013 08/23/2013 Impaired fasting glucose 11/13/2005 015 Allergic rhinitis, cause unspecified 06/06/2009 Overview: Allergic rhinitis documented as of this encounter (statuses as of 02/25/2022) [facility] History of Past illness Narrative* Problem Noted Date Resolved Date Diabetes mellitus type 2, controlled, without co mplications 02/21/2014 01/15/2018 Occult GI bleeding 03/03/2013 08/23/2013 Impaired fasting glucose 11/13/2005 015 Allergic rhinitis, cause unspecified 06/06/2009 Overview: Allergic rhinitis documented as of this encounter (statuses as of 05/03/2022) [facility] History of Past illness Narrative* Problem Noted Date Resolved Date Diabetes mellitus type 2, controlled, without co mplications 02/21/2014 01/15/2018 Occult GI bleeding 03/03/2013 08/23/2013 Impaired fasting glucose 11/13/2005 015 Allergic rhinitis, cause unspecified 06/06/2009 Overview: Allergic rhinitis documented as of this encounter (statuses as of 05/16/2022) [facility] History of Past illness Narrative* Problem Noted Date Resolved Date Diabetes mellitus type 2, controlled, without co mplications 02/21/2014 01/15/2018 Occult GI bleeding 03/03/2013 08/23/2013 Impaired fasting glucose 11/13/2005 015 Allergic rhinitis, cause unspecified 06/06/2009 Overview: Allergic rhinitis documented as of this encounter (statuses as of 06/07/2022) [facility] History of Past illness Narrative* Problem Noted Date Resolved Date Diabetes mellitus type 2, controlled, without co mplications 02/21/2014 01/15/2018 Occult GI bleeding 03/03/2013 08/23/2013 Impaired fasting glucose 11/13/2005 015 Allergic rhinitis, cause unspecified 06/06/2009 Overview: Allergic rhinitis documented as of this encounter (statuses as of 06/18/2022) [facility] History of Past illness Narrative* Problem Noted Date Resolved Date Diabetes mellitus type 2, controlled, without co mplications 02/21/2014 01/15/2018 Occult GI bleeding 03/03/2013 08/23/2013 Impaired fasting glucose 11/13/2005 015 Allergic rhinitis, cause unspecified 06/06/2009 Overview: Allergic rhinitis documented as of this encounter (statuses as of 07/12/2022) [facility] History of Past illness Narrative* Problem Noted Date Resolved Date Diabetes mellitus type 2, controlled, without co mplications 02/21/2014 01/15/2018 Occult GI bleeding 03/03/2013 08/23/2013 Impaired fasting glucose 11/13/2005 015 Allergic rhinitis, cause unspecified 06/06/2009 Overview: Allergic rhinitis documented as of this encounter (statuses as of 07/18/2022) [facility] History of Past illness Narrative* Problem Noted Date Resolved Date Diabetes mellitus type 2, controlled, without co mplications 02/21/2014 01/15/2018 Occult GI bleeding 03/03/2013 08/23/2013 Impaired fasting glucose 11/13/2005 015 Allergic rhinitis, cause unspecified 06/06/2009 Overview: Allergic rhinitis documented as of this encounter (statuses as of 07/19/2022) [facility] History of Past illness Narrative* Problem Noted Date Resolved Date Diabetes mellitus type 2, controlled, without co mplications 02/21/2014 01/15/2018 Occult GI bleeding 03/03/2013 08/23/2013 Impaired fasting glucose 11/13/2005 015 Allergic rhinitis, cause unspecified 06/06/2009 Overview: Allergic rhinitis documented as of this encounter (statuses as of 07/26/2022) [facility] History of Past illness Narrative* Problem Noted Date Resolved Date Diabetes mellitus type 2, controlled, without co mplications 02/21/2014 01/15/2018 Occult GI bleeding 03/03/2013 08/23/2013 Impaired fasting glucose 11/13/2005 015 Allergic rhinitis, cause unspecified 06/06/2009 Overview: Allergic rhinitis documented as of this encounter (statuses as of 07/30/2022) [facility] History of Past illness Narrative* Problem Noted Date Resolved Date Diabetes mellitus type 2, controlled, without co mplications 02/21/2014 01/15/2018 Occult GI bleeding 03/03/2013 08/23/2013 Impaired fasting glucose 11/13/2005 015 Allergic rhinitis, cause unspecified 06/06/2009 Overview: Allergic rhinitis documented as of this encounter (statuses as of 08/02/2022) [facility] History of Past illness Narrative* Problem Noted Date Resolved Date Diabetes mellitus type 2, controlled, without co mplications 02/21/2014 01/15/2018 Occult GI bleeding 03/03/2013 08/23/2013 Impaired fasting glucose 11/13/2005 015 Allergic rhinitis, cause unspecified 06/06/2009 Overview: Allergic rhinitis documented as of this encounter (statuses as of 08/06/2022) [facility] History of Past illness Narrative* Problem Noted Date Resolved Date Diabetes mellitus type 2, controlled, without co mplications 02/21/2014 01/15/2018 Occult GI bleeding 03/03/2013 08/23/2013 Impaired fasting glucose 11/13/2005 015 Allergic rhinitis, cause unspecified 06/06/2009 Overview: Allergic rhinitis documented as of this encounter (statuses as of 08/06/2022) [facility] History of Past illness Narrative* Problem Noted Date Resolved Date Diabetes mellitus type 2, controlled, without co mplications 02/21/2014 01/15/2018 Occult GI bleeding 03/03/2013 08/23/2013 Impaired fasting glucose 11/13/2005 015 Allergic rhinitis, cause unspecified 06/06/2009 Overview: Allergic rhinitis documented as of this encounter (statuses as of 08/10/2022) [facility] History of Past illness Narrative* Problem Noted Date Resolved Date Diabetes mellitus type 2, controlled, without co mplications 02/21/2014 01/15/2018 Occult GI bleeding 03/03/2013 08/23/2013 Impaired fasting glucose 11/13/2005 015 Allergic rhinitis, cause unspecified 06/06/2009 Overview: Allergic rhinitis documented as of this encounter (statuses as of 08/15/2022) [facility] History of Past illness Narrative* Problem Noted Date Resolved Date Diabetes mellitus type 2, controlled, without co mplications 02/21/2014 01/15/2018 Occult GI bleeding 03/03/2013 08/23/2013 Impaired fasting glucose 11/13/2005 015 Allergic rhinitis, cause unspecified 06/06/2009 Overview: Allergic rhinitis documented as of this encounter (statuses as of 08/29/2022) [facility] History of Past illness Narrative* Problem Noted Date Resolved Date Diabetes mellitus type 2, controlled, without co mplications 02/21/2014 01/15/2018 Occult GI bleeding 03/03/2013 08/23/2013 Impaired fasting glucose 11/13/2005 015 Allergic rhinitis, cause unspecified 06/06/2009 Overview: Allergic rhinitis documented as of this encounter (statuses as of 08/29/2022) [facility] History of Past illness Narrative* Problem Noted Date Resolved Date Diabetes mellitus type 2, controlled, without co mplications 02/21/2014 01/15/2018 Occult GI bleeding 03/03/2013 08/23/2013 Impaired fasting glucose 11/13/2005 015 Allergic rhinitis, cause unspecified 06/06/2009 Overview: Allergic rhinitis documented as of this encounter (statuses as of 09/26/2022) [facility] History of Past illness Narrative* Problem Noted Date Resolved Date Diabetes mellitus type 2, controlled, without co mplications 02/21/2014 01/15/2018 Occult GI bleeding 03/03/2013 08/23/2013 Impaired fasting glucose 11/13/2005 015 Allergic rhinitis, cause unspecified 06/06/2009 Overview: Allergic rhinitis documented as of this encounter (statuses as of 10/02/2022) [facility] History of Past illness Narrative* Problem Noted Date Resolved Date Diabetes mellitus type 2, controlled, without co mplications 02/21/2014 01/15/2018 Occult GI bleeding 03/03/2013 08/23/2013 Impaired fasting glucose 11/13/2005 015 Allergic rhinitis, cause unspecified 06/06/2009 Overview: Allergic rhinitis documented as of this encounter (statuses as of 10/31/2022) [facility] History of Past illness Narrative* Problem Noted Date Resolved Date Diabetes mellitus type 2, controlled, without co mplications 02/21/2014 01/15/2018 Occult GI bleeding 03/03/2013 08/23/2013 Impaired fasting glucose 11/13/2005 015 Allergic rhinitis, cause unspecified 06/06/2009 Overview: Allergic rhinitis documented as of this encounter (statuses as of 11/22/2022) [facility] History of Past illness Narrative* Problem Noted Date Resolved Date Diabetes mellitus type 2, controlled, without co mplications 02/21/2014 01/15/2018 Occult GI bleeding 03/03/2013 08/23/2013 Impaired fasting glucose 11/13/2005 015 Allergic rhinitis, cause unspecified 06/06/2009 Overview: Allergic rhinitis documented as of this encounter (statuses as of 12/18/2022) [facility] History of Past illness Narrative* Problem Noted Date Resolved Date Diabetes mellitus type 2, controlled, without co mplications 02/21/2014 01/15/2018 Occult GI bleeding 03/03/2013 08/23/2013 Impaired fasting glucose 11/13/2005 015 Allergic rhinitis, cause unspecified 06/06/2009 Overview: Allergic rhinitis documented as of this encounter (statuses as of 01/21/2023) [facility] History of Past illness Narrative* Problem Noted Date Resolved Date Diabetes mellitus type 2, controlled, without co mplications 02/21/2014 01/15/2018 Occult GI bleeding 03/03/2013 08/23/2013 Impaired fasting glucose 11/13/2005 015 Allergic rhinitis, cause unspecified 06/06/2009 Overview: Allergic rhinitis documented as of this encounter (statuses as of 02/13/2023) [facility] History of Past illness Narrative* Problem Noted Date Resolved Date Diabetes mellitus type 2, controlled, without co mplications 02/21/2014 01/15/2018 Occult GI bleeding 03/03/2013 08/23/2013 Impaired fasting glucose 11/13/2005 015 Allergic rhinitis, cause unspecified 06/06/2009 Overview: Allergic rhinitis documented as of this encounter (statuses as of 02/21/2023) [facility] History of Past illness Narrative* Problem Noted Date Resolved Date Diabetes mellitus type 2, controlled, without co mplications 02/21/2014 01/15/2018 Occult GI bleeding 03/03/2013 08/23/2013 Impaired fasting glucose 11/13/2005 015 Allergic rhinitis, cause unspecified 06/06/2009 Overview: Allergic rhinitis documented as of this encounter (statuses as of 02/24/2023) [facility] History of Past illness Narrative* Problem Noted Date Resolved Date Diabetes mellitus type 2, controlled, without co mplications 02/21/2014 01/15/2018 Occult GI bleeding 03/03/2013 08/23/2013 Impaired fasting glucose 11/13/2005 015 Allergic rhinitis, cause unspecified 06/06/2009 Overview: Allergic rhinitis documented as of this encounter (statuses as of 03/08/2023) [facility] History of Past illness Narrative* Problem Noted Date Resolved Date Diabetes mellitus type 2, controlled, without co mplications 02/21/2014 01/15/2018 Occult GI bleeding 03/03/2013 08/23/2013 Impaired fasting glucose 11/13/2005 015 Allergic rhinitis, cause unspecified 06/06/2009 Overview: Allergic rhinitis documented as of this encounter (statuses as of 03/11/2023) [facility] History of Past illness Narrative* Problem Noted Date Resolved Date Diabetes mellitus type 2, controlled, without co mplications 02/21/2014 01/15/2018 Occult GI bleeding 03/03/2013 08/23/2013 Impaired fasting glucose 11/13/2005 015 Allergic rhinitis, cause unspecified 06/06/2009 Overview: Allergic rhinitis documented as of this encounter (statuses as of 03/14/2023) [facility] History of Past illness Narrative* Problem Noted Date Resolved Date Diabetes mellitus type 2, controlled, without co mplications 02/21/2014 01/15/2018 Occult GI bleeding 03/03/2013 08/23/2013 Impaired fasting glucose 11/13/2005 015 Allergic rhinitis, cause unspecified 06/06/2009 Overview: Allergic rhinitis documented as of this encounter (statuses as of 03/15/2023) [facility] History of Past illness Narrative* Problem Noted Date Resolved Date Diabetes mellitus type 2, controlled, without co mplications 02/21/2014 01/15/2018 Occult GI bleeding 03/03/2013 08/23/2013 Impaired fasting glucose 11/13/2005 015 Allergic rhinitis, cause unspecified 06/06/2009 Overview: Allergic rhinitis documented as of this encounter (statuses as of 03/21/2023) [facility] History of Past illness Narrative* Problem Noted Date Resolved Date Diabetes mellitus type 2, controlled, without co mplications 02/21/2014 01/15/2018 Occult GI bleeding 03/03/2013 08/23/2013 Impaired fasting glucose 11/13/2005 015 Allergic rhinitis, cause unspecified 06/06/2009 Overview: Allergic rhinitis documented as of this encounter (statuses as of 04/04/2023) [facility] History of Past illness Narrative* Problem Noted Date Resolved Date Diabetes mellitus type 2, controlled, without co mplications 02/21/2014 01/15/2018 Occult GI bleeding 03/03/2013 08/23/2013 Impaired fasting glucose 11/13/2005 015 Allergic rhinitis, cause unspecified 06/06/2009 Overview: Allergic rhinitis documented as of this encounter (statuses as of 04/08/2023) [facility] History of Past illness Narrative* Problem Noted Date Resolved Date Diabetes mellitus type 2, controlled, without co mplications 02/21/2014 01/15/2018 Occult GI bleeding 03/03/2013 08/23/2013 Impaired fasting glucose 11/13/2005 015 Allergic rhinitis, cause unspecified 06/06/2009 Overview: Allergic rhinitis documented as of this encounter (statuses as of 05/02/2023) [facility] History of Past illness Narrative* Problem Noted Date Resolved Date Diabetes mellitus type 2, controlled, without co mplications 02/21/2014 01/15/2018 Occult GI bleeding 03/03/2013 08/23/2013 Impaired fasting glucose 11/13/2005 015 Allergic rhinitis, cause unspecified 06/06/2009 Overview: Allergic rhinitis documented as of this encounter (statuses as of 05/30/2023) [facility] History of Past illness Narrative* Problem Noted Date Diagnosed Date Resolved Date Diabetes mellitus type 2, co ntrolled, without complications 02/21/2014 01/15/2018 Occult GI bleeding 03/03/2013 3 Impaired fasting glucose 11/13/200505/2015 Allergic rhinitis, cause unspecified 06/06/2009 Overview: Allergic rhinitis documented as of this encounter (statuses as of 06/18/2023) [facility] History of Past illness Narrative* Problem Noted Date Diagnosed Date Resolved Date Diabetes mellitus type 2, co ntrolled, without complications 02/21/2014 01/15/2018 Occult GI bleeding 03/03/2013 3 Impaired fasting glucose 11/13/200505/2015 Allergic rhinitis, cause unspecified 06/06/2009 Overview: Allergic rhinitis documented as of this encounter (statuses as of 07/18/2023) [facility] History of Past illness Narrative* Problem Noted Date Diagnosed Date Resolved Date Diabetes mellitus type 2, co ntrolled, without complications 02/21/2014 01/15/2018 Occult GI bleeding 03/03/2013 3 Impaired fasting glucose 11/13/200505/2015 Allergic rhinitis, cause unspecified 06/06/2009 Overview: Allergic rhinitis documented as of this encounter (statuses as of 08/22/2023) [facility] History of Past illness Narrative* Problem Noted Date Diagnosed Date Resolved Date Diabetes mellitus type 2, co ntrolled, without complications 02/21/2014 01/15/2018 Occult GI bleeding 03/03/2013 3 Impaired fasting glucose 11/13/200505/2015 Allergic rhinitis, cause unspecified 06/06/2009 Overview: Allergic rhinitis documented as of this encounter (statuses as of 09/02/2023) [facility] History of Past illness Narrative* Problem Noted Date Diagnosed Date Resolved Date Diabetes mellitus type 2, co ntrolled, without complications 02/21/2014 01/15/2018 Occult GI bleeding 03/03/2013 3 Impaired fasting glucose 11/13/200505/2015 Allergic rhinitis, cause unspecified 06/06/2009 Overview: Allergic rhinitis documented as of this encounter (statuses as of 09/10/2023) [facility] History of Past illness Narrative* Problem Noted Date Diagnosed Date Resolved Date Diabetes mellitus type 2, co ntrolled, without complications 02/21/2014 01/15/2018 Occult GI bleeding 03/03/2013 3 Impaired fasting glucose 11/13/200505/2015 Allergic rhinitis, cause unspecified 06/06/2009 Overview: Allergic rhinitis documented as of this encounter (statuses as of 09/19/2023) [facility] History of Past illness Narrative* Problem Noted Date Diagnosed Date Resolved Date Diabetes mellitus type 2, co ntrolled, without complications 02/21/2014 01/15/2018 Occult GI bleeding 03/03/2013 3 Impaired fasting glucose 11/13/200505/2015 Allergic rhinitis, cause unspecified 06/06/2009 Overview: Allergic rhinitis documented as of this encounter (statuses as of 09/19/2023) [facility] History of Past illness Narrative* Problem Noted Date Diagnosed Date Resolved Date Diabetes mellitus type 2, co ntrolled, without complications 02/21/2014 01/15/2018 Occult GI bleeding 03/03/2013 3 Impaired fasting glucose 11/13/200505/2015 Allergic rhinitis, cause unspecified 06/06/2009 Overview: Allergic rhinitis documented as of this encounter (statuses as of 09/23/2023) [facility] History of Past illness Narrative* Problem Noted Date Diagnosed Date Resolved Date Diabetes mellitus type 2, co ntrolled, without complications 02/21/2014 01/15/2018 Occult GI bleeding 03/03/2013 3 Impaired fasting glucose 11/13/200505/2015 Allergic rhinitis, cause unspecified 06/06/2009 Overview: Allergic rhinitis documented as of this encounter (statuses as of 10/13/2023) [facility] History of Past illness Narrative* Problem Noted Date Diagnosed Date Resolved Date Diabetes mellitus type 2, co ntrolled, without complications 02/21/2014 01/15/2018 Occult GI bleeding 03/03/2013 3 Impaired fasting glucose 11/13/200505/2015 Allergic rhinitis, cause unspecified 06/06/2009 Overview: Allergic rhinitis documented as of this encounter (statuses as of 10/15/2023) [facility] History of Past illness Narrative* Problem Noted Date Diagnosed Date Resolved Date Diabetes mellitus type 2, co ntrolled, without complications 02/21/2014 01/15/2018 Occult GI bleeding 03/03/2013 3 Impaired fasting glucose 11/13/200505/2015 Allergic rhinitis, cause unspecified 06/06/2009 Overview: Allergic rhinitis documented as of this encounter (statuses as of 10/17/2023) [facility] History of Past illness Narrative* Problem Noted Date Diagnosed Date Resolved Date Diabetes mellitus type 2, co ntrolled, without complications 02/21/2014 01/15/2018 Occult GI bleeding 03/03/2013 3 Impaired fasting glucose 11/13/200505/2015 Allergic rhinitis, cause unspecified 06/06/2009 Overview: Allergic rhinitis documented as of this encounter (statuses as of 10/30/2023) [facility] History of Past illness Narrative* Problem Noted Date Diagnosed Date Resolved Date Diabetes mellitus type 2, co ntrolled, without complications 02/21/2014 01/15/2018 Occult GI bleeding 03/03/2013 3 Impaired fasting glucose 11/13/200505/2015 Allergic rhinitis, cause unspecified 06/06/2009 Overview: Allergic rhinitis documented as of this encounter (statuses as of 10/31/2023) [facility] History of Past illness Narrative* Problem Noted Date Diagnosed Date Resolved Date Diabetes mellitus type 2, co ntrolled, without complications 02/21/2014 01/15/2018 Occult GI bleeding 03/03/2013 3 Impaired fasting glucose 11/13/200505/2015 Allergic rhinitis, cause unspecified 06/06/2009 Overview: Allergic rhinitis documented as of this encounter (statuses as of 01/09/2024) [facility] History of Past illness Narrative* Problem Noted Date Diagnosed Date Resolved Date Diabetes mellitus type 2, co ntrolled, without complications 02/21/2014 01/15/2018 Occult GI bleeding 03/03/2013 3 Impaired fasting glucose 11/13/200505/2015 Allergic rhinitis, cause unspecified 06/06/2009 Overview: Allergic rhinitis documented as of this encounter (statuses as of 02/06/2024) [facility] History of Past illness Narrative* Problem Noted Date Diagnosed Date Resolved Date Diabetes mellitus type 2, co ntrolled, without complications 02/21/2014 01/15/2018 Occult GI bleeding 03/03/2013 3 Impaired fasting glucose 11/13/200505/2015 Allergic rhinitis, cause unspecified 06/06/2009 Overview: Allergic rhinitis documented as of this encounter (statuses as of 02/23/2024) [facility] History of Past illness Narrative* Problem Noted Date Diagnosed Date Resolved Date Diabetes mellitus type 2, co ntrolled, without complications 02/21/2014 01/15/2018 Occult GI bleeding 03/03/2013 3 Impaired fasting glucose 11/13/200505/2015 Allergic rhinitis, cause unspecified 06/06/2009 Overview: Allergic rhinitis documented as of this encounter (statuses as of 03/05/2024) [facility] History of Past illness Narrative* Problem Noted Date Diagnosed Date Resolved Date Diabetes mellitus type 2, co ntrolled, without complications 02/21/2014 01/15/2018 Occult GI bleeding 03/03/2013 3 Impaired fasting glucose 11/13/200505/2015 Allergic rhinitis, cause unspecified 06/06/2009 Overview: Allergic rhinitis documented as of this encounter (statuses as of 03/19/2024) [facility] note* Diagnosis prison current use of anticoagulant Long-term (current) use of 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s History of pulmonary embolus (PE) Personal history of pulmonary embolism documented in this encounter [facility] note* Diagnosis Controlled type 2 diabetes mellitus with stage 3 chronic kidney disease, without long-term current use of insulin ([facility])- Primary Essential hypertension Unspecified essential hypertension Acquired hypothyroidism Unspecified hypothyroidism Mixed hyperlipidemia Hypomagnesemia Disorders of magnesium metabolism Vitamin D deficiency Unspecified vitamin D deficiency prison current use of anticoagulant Long-term (current) use of 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s Encounter for long-term current use of medication Class 3 severe obesity due to excess calories without serious comorbidity with body mass index (BMI) of 40.0 to 44.9 in adult ([facility]) documented in this encounter [facility] note* Diagnosis prison current use of anticoagulant Long-term (current) use of 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s History of pulmonary embolus (PE) Personal history of pulmonary embolism [facility] Onset Date Resolution Status Preop cardiovascular exam ac [place] 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 Essential hypertension 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 Mixed hyperlipidemia chronic 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 25 [facility] Work Phone: Evaluation note* Diagnosis Controlled type 2 diabetes mellitus with stage 3 chronic kidney disease, without long-term current use of insulin ([facility]) [facility] Diagnosis Type 2 diabetes mellitus with stage 3a chronic kidney disease, without long-term current use of insulin ([facility])- Primary Essential hypertension Unspecified essential hypertension Mixed hyperlipidemia prison current use of anticoagulant Long-term (current) use of 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s Acquired hypothyroidism Unspecified hypothyroidism Need for shingles vaccine Need for prophylactic vaccination and inoculation against other viral diseases Screening for diabetic retinopathy Screening for other eye conditions Class 3 severe obesity due to excess calories without serious comorbidity with body mass index (BMI) of 40.0 to 44.9 in adult ([facility]CC) 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 Long-term (current) use of 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s History of pulmonary embolus (PE) Personal history of pulmonary embolism [facility] Preop exam for internal medicine Other specified pre-operative examination Other pulmonary embolism without acute cor pulmonale, unspecified chronicity (HCC) Chronic anticoagulation Long-term (current) use of 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s [facility] 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 Long-term (current) use of 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s History of pulmonary embolus (PE) Personal history of pulmonary embolism 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 Long-term (current) use of 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s [facility] 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 Long-term (current) use of 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s [facility] Diagnosis UTI symptoms- Primary Other symptoms involving urinary system Urgency incontinence Urge incontinence [facility] Diagnosis prison current use of anticoagulant Long-term (current) use of 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s History of pulmonary embolus (PE) Personal history of pulmonary embolism [facility] Diagnosis Other microscopic hematuria- Primary UTI symptoms Other symptoms involving urinary system documented in this encounter [facility]* Diagnosis Personal history of DVT (deep vein thrombosis)- Primary Personal history of venous thrombosis and embolism History of pulmonary embolus (PE) Personal history of pulmonary embolism documented in this encounter [facility] noteNo assessment information availableWSumma Health [facility] Work Phone: Evaluation note* Diagnosis Acquired hypothyroidism Unspecified hypothyroidism [facility]* Diagnosis Sinobronchitis- Primary Unspecified sinusitis (chronic) Acute bronchitis documented in this encounter [facility] note* Diagnosis Sinobronchitis- Primary Unspecified sinusitis (chronic) Chronic anticoagulation Long-term (current) use of 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s [facility]* 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 Long-term (current) use of 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s History of pulmonary embolus (PE) Personal history of pulmonary embolism documented in this encounter [facility] note* Diagnosis Laceration of right thumb without foreign body without damage to nail, subsequent encounter- Primary Open fracture of base of distal phalanx of right thumb Contusion of left knee, subsequent encounter Abrasion, left knee, subsequent encounter Muscle spasm Spasm of muscle Back strain, subsequent encounter [facility]* 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 Long-term (current) use of 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s History of pulmonary embolus (PE) Personal history of pulmonary embolism [facility]* Diagnosis prison current use of anticoagulant Long-term (current) use of 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s History of pulmonary embolus (PE) Personal history of pulmonary embolism [facility]* Diagnosis Hyperkalemia- Primary Hyperpotassemia Hypercalcemia Elevated serum creatinine Other nonspecific findings on examination of blood Encounter for screening for osteoporosis Special screening for osteoporosis Asymptomatic postmenopausal status documented in this encounter [facility] note* Diagnosis prison current use of anticoagulant- Primary Long-term (current) use of 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s History of pulmonary embolus (PE) Personal history of pulmonary embolism [facility] Diagnosis prison current use of anticoagulant- Primary Long-term (current) use of 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s History of pulmonary embolus (PE) Personal history of pulmonary embolism [facility]* Diagnosis prison current use of anticoagulant- Primary Long-term (current) use of 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s History of pulmonary embolus (PE) Personal history of pulmonary embolism [facility]* Diagnosis Bowel habit changes- Primary Other symptoms involving digestive system Diarrhea, unspecified type History of colon polyps Personal history of colonic polyps Hypomagnesemia Disorders of magnesium metabolism Acquired hypothyroidism Unspecified hypothyroidism Vitamin D deficiency Unspecified vitamin D deficiency Type 2 diabetes mellitus with stage 3a chronic kidney disease, without long-term current use of insulin ([facility]) Encounter for therapeutic drug monitoring [facility]* Diagnosis Bowel habit changes- Primary Other symptoms involving digestive system Diarrhea, unspecified type History of colon polyps Personal history of colonic polyps On continuous oral anticoagulation Long-term (current) use of 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s Abnormal weight loss Loss of weight [facility]* Diagnosis Contusion of right hip, subsequent encounter- Primary Debility Debility, unspecified Pulmonary embolism without acute cor pulmonale, unspecified chronicity, unspecified pulmonary embolism type (HCC) [facility]* 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- Primary Long-term (current) use of 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s History of pulmonary embolus (PE) Personal history of pulmonary embolism [facility]* 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- Primary Long-term (current) use of 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s History of pulmonary embolus (PE) Personal history of pulmonary embolism [facility]* Diagnosis Hypomagnesemia- Primary Disorders of magnesium metabolism [facility]* Diagnosis prison current use of anticoagulant- Primary Long-term (current) use of 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s History of pulmonary embolus (PE) Personal history of pulmonary embolism [facility]* 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- Primary Long-term (current) use of 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s History of pulmonary embolus (PE) Personal history of pulmonary embolism [facility]* Diagnosis Essential hypertension- Primary Unspecified essential hypertension Mixed hyperlipidemia Atherosclerosis of [place] coronary artery of [place] heart without angina pectoris Pulmonary embolism without acute cor pulmonale, unspecified chronicity, unspecified pulmonary embolism type (HCC) Class 3 severe obesity due to excess calories without serious comorbidity with body mass index (BMI) of 40.0 to 44.9 in adult (HCC) Type 2 diabetes mellitus with stage 3a chronic kidney disease, without long-term current use of insulin (HCC) Hypercalcemia Vitamin D deficiency Unspecified vitamin D deficiency Acquired hypothyroidism Unspecified hypothyroidism Encounter for therapeutic drug monitoring documented in this encounter [facility] note* Diagnosis prison current use of anticoagulant- Primary Long-term (current) use of 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s History of pulmonary embolus (PE) Personal history of pulmonary embolism [facility]* Diagnosis Essential hypertension- Primary Unspecified essential hypertension PATRICIA (obstructive sleep apnea) Obstructive sleep apnea (adult) (pediatric) documented [facility]* Diagnosis prison current use of anticoagulant- Primary Long-term (current) use of 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s History of pulmonary embolus (PE) Personal history of pulmonary embolism [facility]* Diagnosis Diarrhea, unspecified type- Primary prison current use of anticoagulant Long-term (current) use of 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s documented in this encounter [facility] note* 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- Primary Long-term (current) use of 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s History of pulmonary embolus (PE) Personal history of pulmonary embolism [facility]* Diagnosis Diarrhea, unspecified type- Primary prison current use of anticoagulant Long-term (current) use of 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s History of pulmonary embolus (PE) Personal history of pulmonary embolism Type 2 diabetes mellitus with stage 3a chronic kidney disease, without long-term current use of insulin ([facility]) [facility]* Diagnosis Type 2 diabetes mellitus with [...] of right hand Acquired hypothyroidism Unspecified hypothyroidism 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 Long-term (current) use of 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s Hypomagnesemia Disorders of magnesium metabolism Vitamin D deficiency Unspecified vitamin D deficiency Hypercalcemia Mixed hyperlipidemia Encounter for therapeutic drug monitoring Encounter for immunization Need for other specified prophylactic vaccination against single bacterial disease [facility] Diagnosis PATRICIA (obstructive sleep apnea)- Primary Obstructive sleep apnea (adult) (pediatric) Claustrophobia Other isolated or specific phobias [facility]* Diagnosis History of pulmonary embolus (PE)- Primary Personal history of pulmonary embolism Personal history of DVT (deep vein thrombosis) Personal history of venous thrombosis and embolism [facility]* Diagnosis Hypertensive kidney disease with stage [...] joint disorders, unspecified [facility]* Diagnosis Onset Date Resolution Status Admit Date Nocturia acute July 12 9:49am Overactive bladder acute July 12, 2025 9:49am Urge incontinence acute July 12, 2025 9:49am Urinary tract infection acute A ugust 2024 9:49am [facility] Work Phone: Evaluation note* Diagnosis prison current use of anticoagulant- Primary Long-term (current) use of 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s History of pulmonary embolus (PE) Personal history of pulmonary embolism Personal history of DVT (deep vein thrombosis) Personal history of venous thrombosis and embolism [facility] Additional Instructions Use walker at home for support. Take medications as prescribed as needed. Follow-up with your doctor. Return if worsening symptoms.[facility] Work Phone: Hospital Discharge instructionsAdditional Instructions Your history and exam and workup indicate peripheral vertigo. This should resolve spontaneously as the crystals inside your inner ear which typically causes symptoms gradually moved down and out of the region. Please stop the Antivert/meclizine and begin using the Valium for improved vertigo/dizziness control. Your INR today was normal at 2.3. Please continue all of your other medications as directed by your doctor. 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 Advance Directive(s) 07/27/2019 5:50 AM Advance Directive(s) 07/26/2019 1:31 PM Advance Directive Response Recorded Date/ Time Advance Directives No October 9:29am Living Will No October 13, 020 12:04am Power of Shell Trim Tool Setter No October 13, 2020 12:04am Advance Directive Response Recorded Date/ Time Advance Directives No October 9:29am Living Will No July 18 2 3:28pm Power of Shell Trim Tool Setter No July 18, 2 022 3:28pm Advance Directive Response Recorded Date/ Time Advance Directives No October 8:29am Living Will No July 18 2 2:28pm Power of Shell Trim Tool Setter No July 18, 2 022 2:28pm Advance Directive Response Recorded Date/ Time Advance Directives No October 9:29am Living Will No March 05, 2023 1:58pm Power of Shell Trim Tool Setter No March 05 3 1:58pm Advance Directive Response Recorded Date/ Time Advance Directives No October 9:29am Living Will No March 08, 2023 9:44am Power of Shell Trim Tool Setter No March 08 9:44am Advance Directive Response Recorded Date/ Time Advance Directives No October 9:29am Living Will No September 25 5:44pm Power of Shell Trim Tool Setter No September 25, 2023 5:44pm Advance Directive Response Recorded Date/ Time Advance Directives No October 8:29am Living Will No September 29 11:03am Power of Shell Trim Tool Setter No September 29, 2023 11:03am Advance Directive Response Recorded Date/ Time Advance Directives No October 9:29am Advance Directive Response Recorded Date/ Time Do you have a Healthcare Power of Shell Trim Tool Setter? 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 Mixed hyperlipidemia Presence 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 Chief Complaint E ORDERS Chief Complaint FALL Chief Complaint FALL back pain Chief Complaint 1 Y FU FALL, RIGHT HIP & RIGHT LEG PAIN Reason for Visit Essential hypertensi on prison current use of anticoagulant Mixed hyperlipidemia Presence [...] APNEA Reason for Visit Essential hypertensi on prison current use of anticoagulant Mixed hyperlipidemia Presence 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 Debility Fall Leg pain, right Contusion, hip and thigh Debility Fall History of pulmonary embolism Leg pain, right Lumbar strain Overactive bladder Supratherapeutic INR Atherosclerotic heart disease of [place] coronary artery without angina pectoris DM2 (diabetes mellitus, type 2) Essential hypertension GERD (gastroesophageal reflux disease) Hypothyroidism prison current use of anticoagulant Mixed hyperlipidemia Obesity [...] HERE Reason for Visit Essential hypertensi on prison current use of anticoagulant Mixed hyperlipidemia Presence 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 Debility Fall Leg pain, right Debility History of pulmonary embolism Overactive bladder Atherosclerotic heart disease of [place] coronary artery without angina pectoris DM2 (diabetes mellitus, type 2) Essential hypertension GERD (gastroesophageal reflux disease) Hypothyroidism prison current use of anticoagulant Mixed hyperlipidemia Obesity [...] 1:59pm Essential hypertension February 09, 2025 1:59pm 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 M arch 2024 1:59pm Mixed hyperlipidemia February 09, 2025 [...] 10 :35am Coronary artery disease August 04, 025 2:05pm 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 ure August 04, 2025 2:05pm DM2 (diabetes mellitus, type 2) Septembe r 2024 2:05pm Essential hypertension August 04 2:05pm prison current use of anticoagulant S eptember 2024 2:05pm Mixed hyperlipidemia August 04, 2025 2:05pm Obesity August 04, 2025 2:05pm Presence 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 Sep 2024 2:05pm Pulmonary embolism August 04, 2025 2:05pm Chief Complaint Admit Date MED F/U July 12, 2025 9: 49am 1HR UDS July 26, 2025 10 :35am INT LABS July 27, 2025 9: 35am 6 M FU August 04, 2025 2:05pm UDS results August 08, 2025 1:14pm Chief Complaint Admit Date MED F/U July 12, 2025 9: 49am 1HR UDS July 26, 2025 10 :35am INT LABS July 27, 2025 9: 35am 6 M FU August 04, 2025 2:05pm UDS results August 08, 2025 1:14pm VERTIGO September 05, 2025 9: 41pm Reason for Visit Admit Date Nocturia July 12, 2025 9: 49am Overactive bladder July 12, 2025 9: 49am Urge incontinence July 12, 2025 9: 49am Urinary tract infection July 12 9:49am Nocturia July 26, 2025 10 :35am Overactive bladder July 26, 2025 10 :35am Urge incontinence July 26, 2025 10 :35am Urinary tract infection July 26 10:35am Coronary artery disease August 04, 2:05pm 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 ure August 04, 2025 2:05pm DM2 (diabetes mellitus, type 2) Septembe r 2024 2:05pm Essential hypertension August 04 2:05pm prison current use of anticoagulant S eptember 2024 2:05pm Mixed hyperlipidemia August 04, 2025 2:05pm Obesity August 04, 2025 2:05pm Presence 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 Sep 2024 2:05pm Pulmonary embolism August 04, 2025 2:05pm Urge incontinence August 08, 2025 1:14pm Reason for Referral Specialty Diagnoses / Procedures Referred By Christian t Referred To Contact Diagnoses Preop exam for internal medicine Other pulmonary embolism without acute cor pulmonale, unspecified chronicity (HCC) Chronic anticoagulation Jose De Jesus Harrington MD [address] [place] [address] Referral ID Status Reason Start Date Expiration Date Visits Re quested Visits Authorized [id number] Closed 1 1 Specialty Diagnoses / Procedures Referred By Contac t Referred To Contact Orthopedics Diagnoses Laceration of right thumb without foreign body without damage to nail, subsequent encounter Open fracture of base of distal phalanx of right thumb Procedures CONSULT TO ORTHOPAEDICS OFFICE/OUTPATIENT [facility] 60-74 MINUTES Herbert Jay, HOPPER OPERATOR.BUSINESS INITIATIVES MANAGER [address] [place] [address] Referral ID Status Reason Start Date Expiration Date Visits Requested Visits Authorized [id number] Authorized PCP Requested Referral 03/13/2023 03/12/2024 1 1 Specialty Diagnoses / Procedures Referred By Contac t Referred To Contact [facility] Diagnoses Laceration of right thumb without foreign body without damage to nail, subsequent encounter Open fracture of base of distal phalanx of right thumb Contusion of left knee, subsequent encounter Abrasion, left knee, subsequent encounter Muscle spasm Back strain, subsequent encounter Procedures CONSULT TO PHYSICAL THERAPY PHYSICAL THERAPY EVALUATION HIGH COMPLEX 45 MINS Herbert Jay, HOPPER OPERATOR.[facility] [address] [place] [address] [facility] [place] [address] [place] [address] Referral ID Status Reason Start Date Expiration Date Visits Requested Visits Authorized [id number] Authorized PCP Requested Referral Auto-Generate d Referral 03/13/2023 03/12/2024 99 99 Specialty Diagnoses / Procedures Referred By Contac t Referred To Contact General Surgery Diagnoses Diarrhea, unspecified type Bowel habit changes History of colon polyps Procedures CONSULT TO GENERAL SURGERY OFFICE/OUTPATIENT [facility] 60-74 MINUTES Olimpia Gomez HOPPER OPERATOR.INSPECTOR AND MENDER [address] [place] [address] Referral ID Status Reason Start Date Expiration Date Visits Requested Visits Authorized [id number] Authorized PCP Requested Referral 09/01/2023 08/31/2024 1 1 Specialty Diagnoses / Procedures Referred By Contac t Referred To Contact Diagnoses PATRICIA (obstructive sleep apnea) Procedures CONSULT TO SLEEP MEDICINE - ADULT OFFICE/OUTPATIENT NEW HIGH MDM 60 MINUTES Jose De Jesus Harrington MD [address] [place] [address] Referral ID Status Reason Start Date Expiration Date Visits Requested Visits Authorized [id number] Authorized PCP Requested Referral 07/27/2024 07/27/2025 1 1 Specialty Diagnoses / Procedures Referred By Contac t Referred To Contact Dentistry Diagnoses PATRICIA (obstructive sleep apnea) Procedures CONSULT TO DENTISTRY OFFICE/OUTPATIENT NEW HIGH MDM 60 MINUTES Roseann Elizabeth, SANDEE.INSPECTOR AND MENDER [address] [place] [address] Referral ID Status Reason Start Date Expiration Date Visits Requested Visits Authorized [id number] New Request PCP Requested Referral 11/03/2024 11/03/2025 1 1 Additional Source Comments INFORMATION SOURCE (unrecogn ized section and content) DATE CREATED AUTHOR 05/21/2018 [facility] DATE CREATED AUTHOR AUTHOR'S ORGANIZ ATION 05/21/2018 [facility] DATE CREATED AUTHOR AUTHOR'S ORGANIZ ATION 09/23/2025 [facility] DATE CREATED AUTHOR AUTHOR'S ORGANIZ ATION 10/03/2025 [facility] Source Comments (unrecognize d section and content) In the event this informatio n is protected by the Federal Confidentiality of Alcohol and Drug Abuse Patient Records regulations: The Federal rules restrict any use of the information to criminally investigate or prosecute any alcohol or drug abuse patient.[facility] the event this information is protected by the Federal Confidentiality of Alcohol and Drug Abuse Patient Records regulations: The Federal rules restrict any use of the information to criminally investigate or prosecute any alcohol or drug abuse patient.[facility] the event this information is protected by the Federal Confidentiality of Alcohol and Drug Abuse Patient Records regulations: The Federal rules restrict any use of the information to criminally investigate or prosecute any alcohol or drug abuse patient.[facility] Hospital[facility] the event this information is protected by the Federal Confidentiality of Alcohol and Drug Abuse Patient Records regulations: The Federal rules restrict any use of the information to criminally investigate or prosecute any alcohol or drug abuse patient.[facility] the event this information is protected by the Federal Confidentiality of Alcohol and Drug Abuse Patient Records regulations: The Federal rules restrict any use of the information to criminally investigate or prosecute any alcohol or drug abuse patient.[facility] the event this information is protected by the Federal Confidentiality of Alcohol and Drug Abuse Patient Records regulations: The Federal rules restrict any use of the information to criminally investigate or prosecute any alcohol or drug abuse patient.[facility] Hospital[facility] the event this information is protected by the Federal Confidentiality of Alcohol and Drug Abuse Patient Records regulations: The Federal rules restrict any use of the information to criminally investigate or prosecute any alcohol or drug abuse patient.[facility] Hospital[facility] the event this information is protected by the Federal Confidentiality of Alcohol and Drug Abuse Patient Records regulations: The Federal rules restrict any use of the information to criminally investigate or prosecute any alcohol or drug abuse patient.[facility] Hospital[facility] the event this information is protected by the Federal Confidentiality of Alcohol and Drug Abuse Patient Records regulations: The Federal rules restrict any use of the information to criminally investigate or prosecute any alcohol or drug abuse patient.[facility] the event this information is protected by the Federal Confidentiality of Alcohol and Drug Abuse Patient Records regulations: The Federal rules restrict any use of the information to criminally investigate or prosecute any alcohol or drug abuse patient.[facility] Hospital[facility] the event this information is protected by the Federal Confidentiality of Alcohol and Drug Abuse Patient Records regulations: The Federal rules restrict any use of the information to criminally investigate or prosecute any alcohol or drug abuse patient.[facility] HospitalIn the event this information is protected by the Federal Confidentiality of Alcohol and Drug Abuse Patient Records regulations: The Federal rules restrict any use of the information to criminally investigate or prosecute any alcohol or drug abuse patient.[facility] HospitalIn the event this information is protected by the Federal Confidentiality of Alcohol and Drug Abuse Patient Records regulations: The Federal rules restrict any use of the information to criminally investigate or prosecute any alcohol or drug abuse patient.[facility] HospitalIn the event this information is protected by the Federal Confidentiality of Alcohol and Drug Abuse Patient Records regulations: The Federal rules restrict any use of the information to criminally investigate or prosecute any alcohol or drug abuse patient.[facility] HospitalIn the event this information is protected by the Federal Confidentiality of Alcohol and Drug Abuse Patient Records regulations: The Federal rules restrict any use of the information to criminally investigate or prosecute any alcohol or drug abuse patient.[facility] HospitalIn the event this information is protected by the Federal Confidentiality of Alcohol and Drug Abuse Patient Records regulations: The Federal rules restrict any use of the information to criminally investigate or prosecute any alcohol or drug abuse patient.[facility] HospitalIn the event this information is protected by the Federal Confidentiality of Alcohol and Drug Abuse Patient Records regulations: The Federal rules restrict any use of the information to criminally investigate or prosecute any alcohol or drug abuse patient.[facility] HospitalIn the event this information is protected by the Federal Confidentiality of Alcohol and Drug Abuse Patient Records regulations: The Federal rules restrict any use of the information to criminally investigate or prosecute any alcohol or drug abuse patient.[facility] HospitalIn the event this information is protected by the Federal Confidentiality of Alcohol and Drug Abuse Patient Records regulations: The Federal rules restrict any use of the information to criminally investigate or prosecute any alcohol or drug abuse patient.[facility] HospitalIn the event this information is protected by the Federal Confidentiality of Alcohol and Drug Abuse Patient Records regulations: The Federal rules restrict any use of the information to criminally investigate or prosecute any alcohol or drug abuse patient.[facility] HospitalIn the event this information is protected by the Federal Confidentiality of Alcohol and Drug Abuse Patient Records regulations: The Federal rules restrict any use of the information to criminally investigate or prosecute any alcohol or drug abuse patient.[facility] HospitalIn the event this information is protected by the Federal Confidentiality of Alcohol and Drug Abuse Patient Records regulations: The Federal rules restrict any use of the information to criminally investigate or prosecute any alcohol or drug abuse patient.[facility] HospitalIn the event this information is protected by the Federal Confidentiality of Alcohol and Drug Abuse Patient Records regulations: The Federal rules restrict any use of the information to criminally investigate or prosecute any alcohol or drug abuse patient.[facility] HospitalIn the event this information is protected by the Federal Confidentiality of Alcohol and Drug Abuse Patient Records regulations: The Federal rules restrict any use of the information to criminally investigate or prosecute any alcohol or drug abuse patient.[facility] HospitalIn the event this information is protected by the Federal Confidentiality of Alcohol and Drug Abuse Patient Records regulations: The Federal rules restrict any use of the information to criminally investigate or prosecute any alcohol or drug abuse patient.[facility] HospitalIn the event this information is protected by the Federal Confidentiality of Alcohol and Drug Abuse Patient Records regulations: The Federal rules restrict any use of the information to criminally investigate or prosecute any alcohol or drug abuse patient.[facility] HospitalIn the event this information is protected by the Federal Confidentiality of Alcohol and Drug Abuse Patient Records regulations: The Federal rules restrict any use of the information to criminally investigate or prosecute any alcohol or drug abuse patient.[facility] HospitalIn the event this information is protected by the Federal Confidentiality of Alcohol and Drug Abuse Patient Records regulations: The Federal rules restrict any use of the information to criminally investigate or prosecute any alcohol or drug abuse patient.[facility] HospitalIn the event this information is protected by the Federal Confidentiality of Alcohol and Drug Abuse Patient Records regulations: The Federal rules restrict any use of the information to criminally investigate or prosecute any alcohol or drug abuse patient.[facility] HospitalIn the event this information is protected by the Federal Confidentiality of Alcohol and Drug Abuse Patient Records regulations: The Federal rules restrict any use of the information to criminally investigate or prosecute any alcohol or drug abuse patient.[facility] HospitalIn the event this information is protected by the Federal Confidentiality of Alcohol and Drug Abuse Patient Records regulations: The Federal rules restrict any use of the information to criminally investigate or prosecute any alcohol or drug abuse patient.[facility] HospitalIn the event this information is protected by the Federal Confidentiality of Alcohol and Drug Abuse Patient Records regulations: The Federal rules restrict any use of the information to criminally investigate or prosecute any alcohol or drug abuse patient.[facility] HospitalIn the event this information is protected by the Federal Confidentiality of Alcohol and Drug Abuse Patient Records regulations: The Federal rules restrict any use of the information to criminally investigate or prosecute any alcohol or drug abuse patient.[facility] HospitalIn the event this information is protected by the Federal Confidentiality of Alcohol and Drug Abuse Patient Records regulations: The Federal rules restrict any use of the information to criminally investigate or prosecute any alcohol or drug abuse patient.[facility] HospitalIn the event this information is protected by the Federal Confidentiality of Alcohol and Drug Abuse Patient Records regulations: The Federal rules restrict any use of the information to criminally investigate or prosecute any alcohol or drug abuse patient.[facility] HospitalIn the event this information is protected by the Federal Confidentiality of Alcohol and Drug Abuse Patient Records regulations: The Federal rules restrict any use of the information to criminally investigate or prosecute any alcohol or drug abuse patient.[facility] HospitalIn the event this information is protected by the Federal Confidentiality of Alcohol and Drug Abuse Patient Records regulations: The Federal rules restrict any use of the information to criminally investigate or prosecute any alcohol or drug abuse patient.[facility] HospitalIn the event this information is protected by the Federal Confidentiality of Alcohol and Drug Abuse Patient Records regulations: The Federal rules restrict any use of the information to criminally investigate or prosecute any alcohol or drug abuse patient.[facility] HospitalIn the event this information is protected by the Federal Confidentiality of Alcohol and Drug Abuse Patient Records regulations: The Federal rules restrict any use of the information to criminally investigate or prosecute any alcohol or drug abuse patient.[facility] HospitalIn the event this information is protected by the Federal Confidentiality of Alcohol and Drug Abuse Patient Records regulations: The Federal rules restrict any use of the information to criminally investigate or prosecute any alcohol or drug abuse patient.[facility] HospitalIn the event this information is protected by the Federal Confidentiality of Alcohol and Drug Abuse Patient Records regulations: The Federal rules restrict any use of the information to criminally investigate or prosecute any alcohol or drug abuse patient.[facility] HospitalIn the event this information is protected by the Federal Confidentiality of Alcohol and Drug Abuse Patient Records regulations: The Federal rules restrict any use of the information to criminally investigate or prosecute any alcohol or drug abuse patient.[facility] HospitalIn the event this information is protected by the Federal Confidentiality of Alcohol and Drug Abuse Patient Records regulations: The Federal rules restrict any use of the information to criminally investigate or prosecute any alcohol or drug abuse patient.[facility] HospitalIn the event this information is protected by the Federal Confidentiality of Alcohol and Drug Abuse Patient Records regulations: The Federal rules restrict any use of the information to criminally investigate or prosecute any alcohol or drug abuse patient.[facility] HospitalIn the event this information is protected by the Federal Confidentiality of Alcohol and Drug Abuse Patient Records regulations: The Federal rules restrict any use of the information to criminally investigate or prosecute any alcohol or drug abuse patient.[facility] HospitalIn the event this information is protected by the Federal Confidentiality of Alcohol and Drug Abuse Patient Records regulations: The Federal rules restrict any use of the information to criminally investigate or prosecute any alcohol or drug abuse patient.[facility] HospitalIn the event this information is protected by the Federal Confidentiality of Alcohol and Drug Abuse Patient Records regulations: The Federal rules restrict any use of the information to criminally investigate or prosecute any alcohol or drug abuse patient.[facility] HospitalIn the event this information is protected by the Federal Confidentiality of Alcohol and Drug Abuse Patient Records regulations: The Federal rules restrict any use of the information to criminally investigate or prosecute any alcohol or drug abuse patient.[facility] HospitalIn the event this information is protected by the Federal Confidentiality of Alcohol and Drug Abuse Patient Records regulations: The Federal rules restrict any use of the information to criminally investigate or prosecute any alcohol or drug abuse patient.[facility] HospitalIn the event this information is protected by the Federal Confidentiality of Alcohol and Drug Abuse Patient Records regulations: The Federal rules restrict any use of the information to criminally investigate or prosecute any alcohol or drug abuse patient.[facility] HospitalIn the event this information is protected by the Federal Confidentiality of Alcohol and Drug Abuse Patient Records regulations: The Federal rules restrict any use of the information to criminally investigate or prosecute any alcohol or drug abuse patient.[facility] HospitalIn the event this information is protected by the Federal Confidentiality of Alcohol and Drug Abuse Patient Records regulations: The Federal rules restrict any use of the information to criminally investigate or prosecute any alcohol or drug abuse patient.[facility] HospitalIn the event this information is protected by the Federal Confidentiality of Alcohol and Drug Abuse Patient Records regulations: The Federal rules restrict any use of the information to criminally investigate or prosecute any alcohol or drug abuse patient.[facility] HospitalIn the event this information is protected by the Federal Confidentiality of Alcohol and Drug Abuse Patient Records regulations: The Federal rules restrict any use of the information to criminally investigate or prosecute any alcohol or drug abuse patient.[facility] HospitalIn the event this information is protected by the Federal Confidentiality of Alcohol and Drug Abuse Patient Records regulations: The Federal rules restrict any use of the information to criminally investigate or prosecute any alcohol or drug abuse patient.[facility] HospitalIn the event this information is protected by the Federal Confidentiality of Alcohol and Drug Abuse Patient Records regulations: The Federal rules restrict any use of the information to criminally investigate or prosecute any alcohol or drug abuse patient.[facility] HospitalIn the event this information is protected by the Federal Confidentiality of Alcohol and Drug Abuse Patient Records regulations: The Federal rules restrict any use of the information to criminally investigate or prosecute any alcohol or drug abuse patient.[facility] HospitalIn the event this information is protected by the Federal Confidentiality of Alcohol and Drug Abuse Patient Records regulations: The Federal rules restrict any use of the information to criminally investigate or prosecute any alcohol or drug abuse patient.[facility] HospitalIn the event this information is protected by the Federal Confidentiality of Alcohol and Drug Abuse Patient Records regulations: The Federal rules restrict any use of the information to criminally investigate or prosecute any alcohol or drug abuse patient.[facility] HospitalIn the event this information is protected by the Federal Confidentiality of Alcohol and Drug Abuse Patient Records regulations: The Federal rules restrict any use of the information to criminally investigate or prosecute any alcohol or drug abuse patient.[facility] HospitalIn the event this information is protected by the Federal Confidentiality of Alcohol and Drug Abuse Patient Records regulations: The Federal rules restrict any use of the information to criminally investigate or prosecute any alcohol or drug abuse patient.[facility] HospitalIn the event this information is protected by the Federal Confidentiality of Alcohol and Drug Abuse Patient Records regulations: The Federal rules restrict any use of the information to criminally investigate or prosecute any alcohol or drug abuse patient.[facility] HospitalIn the event this information is protected by the Federal Confidentiality of Alcohol and Drug Abuse Patient Records regulations: The Federal rules restrict any use of the information to criminally investigate or prosecute any alcohol or drug abuse patient.[facility] HospitalIn the event this information is protected by the Federal Confidentiality of Alcohol and Drug Abuse Patient Records regulations: The Federal rules restrict any use of the information to criminally investigate or prosecute any alcohol or drug abuse patient.[facility] HospitalIn the event this information is protected by the Federal Confidentiality of Alcohol and Drug Abuse Patient Records regulations: The Federal rules restrict any use of the information to criminally investigate or prosecute any alcohol or drug abuse patient.[facility] HospitalIn the event this information is protected by the Federal Confidentiality of Alcohol and Drug Abuse Patient Records regulations: The Federal rules restrict any use of the information to criminally investigate or prosecute any alcohol or drug abuse patient.[facility] HospitalIn the event this information is protected by the Federal Confidentiality of Alcohol and Drug Abuse Patient Records regulations: The Federal rules restrict any use of the information to criminally investigate or prosecute any alcohol or drug abuse patient.[facility] HospitalIn the event this information is protected by the Federal Confidentiality of Alcohol and Drug Abuse Patient Records regulations: The Federal rules restrict any use of the information to criminally investigate or prosecute any alcohol or drug abuse patient.[facility] HospitalIn the event this information is protected by the Federal Confidentiality of Alcohol and Drug Abuse Patient Records regulations: The Federal rules restrict any use of the information to criminally investigate or prosecute any alcohol or drug abuse patient.[facility] HospitalIn the event this information is protected by the Federal Confidentiality of Alcohol and Drug Abuse Patient Records regulations: The Federal rules restrict any use of the information to criminally investigate or prosecute any alcohol or drug abuse patient.[facility] HospitalIn the event this information is protected by the Federal Confidentiality of Alcohol and Drug Abuse Patient Records regulations: The Federal rules restrict any use of the information to criminally investigate or prosecute any alcohol or drug abuse patient.[facility] HospitalIn the event this information is protected by the Federal Confidentiality of Alcohol and Drug Abuse Patient Records regulations: The Federal rules restrict any use of the information to criminally investigate or prosecute any alcohol or drug abuse patient.[facility] HospitalIn the event this information is protected by the Federal Confidentiality of Alcohol and Drug Abuse Patient Records regulations: The Federal rules restrict any use of the information to criminally investigate or prosecute any alcohol or drug abuse patient.[facility] HospitalIn the event this information is protected by the Federal Confidentiality of Alcohol and Drug Abuse Patient Records regulations: The Federal rules restrict any use of the information to criminally investigate or prosecute any alcohol or drug abuse patient.[facility] HospitalIn the event this information is protected by the Federal Confidentiality of Alcohol and Drug Abuse Patient Records regulations: The Federal rules restrict any use of the information to criminally investigate or prosecute any alcohol or drug abuse patient.[facility] HospitalIn the event this information is protected by the Federal Confidentiality of Alcohol and Drug Abuse Patient Records regulations: The Federal rules restrict any use of the information to criminally investigate or prosecute any alcohol or drug abuse patient.[facility] HospitalIn the event this information is protected by the Federal Confidentiality of Alcohol and Drug Abuse Patient Records regulations: The Federal rules restrict any use of the information to criminally investigate or prosecute any alcohol or drug abuse patient.[facility] HospitalIn the event this information is protected by the Federal Confidentiality of Alcohol and Drug Abuse Patient Records regulations: The Federal rules restrict any use of the information to criminally investigate or prosecute any alcohol or drug abuse patient.[facility] HospitalIn the event this information is protected by the Federal Confidentiality of Alcohol and Drug Abuse Patient Records regulations: The Federal rules restrict any use of the information to criminally investigate or prosecute any alcohol or drug abuse patient.[facility] HospitalIn the event this information is protected by the Federal Confidentiality of Alcohol and Drug Abuse Patient Records regulations: The Federal rules restrict any use of the information to criminally investigate or prosecute any alcohol or drug abuse patient.[facility] HospitalIn the event this information is protected by the Federal Confidentiality of Alcohol and Drug Abuse Patient Records regulations: The Federal rules restrict any use of the information to criminally investigate or prosecute any alcohol or drug abuse patient.[facility] HospitalIn the event this information is protected by the Federal Confidentiality of Alcohol and Drug Abuse Patient Records regulations: The Federal rules restrict any use of the information to criminally investigate or prosecute any alcohol or drug abuse patient.[facility] HospitalIn the event this information is protected by the Federal Confidentiality of Alcohol and Drug Abuse Patient Records regulations: The Federal rules restrict any use of the information to criminally investigate or prosecute any alcohol or drug abuse patient.[facility] HospitalIn the event this information is protected by the Federal Confidentiality of Alcohol and Drug Abuse Patient Records regulations: The Federal rules restrict any use of the information to criminally investigate or prosecute any alcohol or drug abuse patient.[facility] HospitalIn the event this information is protected by the Federal Confidentiality of Alcohol and Drug Abuse Patient Records regulations: The Federal rules restrict any use of the information to criminally investigate or prosecute any alcohol or drug abuse patient.[facility] HospitalIn the event this information is protected by the Federal Confidentiality of Alcohol and Drug Abuse Patient Records regulations: The Federal rules restrict any use of the information to criminally investigate or prosecute any alcohol or drug abuse patient.[facility] HospitalIn the event this information is protected by the Federal Confidentiality of Alcohol and Drug Abuse Patient Records regulations: The Federal rules restrict any use of the information to criminally investigate or prosecute any alcohol or drug abuse patient.[facility] HospitalIn the event this information is protected by the Federal Confidentiality of Alcohol and Drug Abuse Patient Records regulations: The Federal rules restrict any use of the information to criminally investigate or prosecute any alcohol or drug abuse patient.[facility] HospitalIn the event this information is protected by the Federal Confidentiality of Alcohol and Drug Abuse Patient Records regulations: The Federal rules restrict any use of the information to criminally investigate or prosecute any alcohol or drug abuse patient.[facility] HospitalIn the event this information is protected by the Federal Confidentiality of Alcohol and Drug Abuse Patient Records regulations: The Federal rules restrict any use of the information to criminally investigate or prosecute any alcohol or drug abuse patient.[facility] HospitalIn the event this information is protected by the Federal Confidentiality of Alcohol and Drug Abuse Patient Records regulations: The Federal rules restrict any use of the information to criminally investigate or prosecute any alcohol or drug abuse patient.[facility] HospitalIn the event this information is protected by the Federal Confidentiality of Alcohol and Drug Abuse Patient Records regulations: The Federal rules restrict any use of the information to criminally investigate or prosecute any alcohol or drug abuse patient.[facility] HospitalIn the event this information is protected by the Federal Confidentiality of Alcohol and Drug Abuse Patient Records regulations: The Federal rules restrict any use of the information to criminally investigate or prosecute any alcohol or drug abuse patient.[facility] Reason for Visit (unrecogniz ed [...] consult. Specialty Diagnoses / Procedures Referred By Christian pride Referred To Contact General Surgery Diagnoses Diarrhea, unspecified type Bowel habit changes History of colon polyps Procedures CONSULT TO GENERAL SURGERY OFFICE/OUTPATIENT [facility] 60-74 MINUTES Olimpia Gomez APRN.CNP [address] [place] [address] Referral ID Status Reason Start Date Expiration Date V isits Requested Visits Authorized [id number] Closed PCP Requested Referral 09/01/2023 08/31/2024 1 [...] time Specialty Diagnoses / Procedures Referred By Christian pride Referred To Contact Diagnoses PATRICIA (obstructive sleep apnea) Procedures CONSULT TO SLEEP MEDICINE - ADULT OFFICE/OUTPATIENT [facility] 60 MINUTES Jose De Jesus Harrington MD [address] [place] [address] Referral ID Status Reason Start Date Expiration Date V isits Requested Visits Authorized [id number] Closed PCP Requested Referral 07/27/2024 07/27/2025 1 1 Reason Comments Appointment Reason Comments Orders poc protime Reason Onset Date Comments Population Health Navigation Outreach 04/11/2025 [facility] Care Teams (unrecognized sec tion and content) Pole Cutter Relationship Specialty Start Date End Date Jose De Jesus Harrington MD [address] [place], [place] [id number] PCP - General Internal Medicine 12/06/14 Pole Cutter Relationship Specialty Start Date End Date Jose De Jesus Harrington MD [address] [place], [place] [id number] PCP - General Internal Medicine 12/06/14 Pole Cutter Relationship Specialty Start Date End Date Jose De Jesus Harrington MD [address] [place] [address], [place] [address] PCP - General Internal Medicine 12/06/14 Pole Cutter Relationship Specialty Start Date End Date Jose De Jesus Harrignton MD [address] [place] [address], [place] [address] PCP - General Internal Medicine 12/06/14 Pole Cutter Relationship Specialty Start Date End Date Jose De Jesus Harrington MD [address] [place] [address], [place] [address] PCP - General Internal Medicine 12/06/14 Pole Cutter Relationship Specialty Start Date End Date Jose De Jesus Harrington MD [address] [place] [address], [place] [address] PCP - General Internal Medicine 12/06/14 Pole Cutter Relationship Specialty Start Date End Date Jose De Jesus Harrington MD [address] [place] [address], [place] [address] PCP - General Internal Medicine 12/06/14 Pole Cutter Relationship Specialty Start Date End Date Jose De Jesus Harrington MD [address] [place] [address], [place] [address] PCP - General Internal Medicine 12/06/14 Pole Cutter Relationship Specialty Start Date End Date Jose De Jesus Harrington MD [address] [place] [address], [place] [address] PCP - General Internal Medicine 12/06/14 Pole Cutter Relationship Specialty Start Date End Date Jose De Jesus Harrington MD [address] [place] [address], [place] [address] PCP - General Internal Medicine 12/06/14 Pole Cutter Relationship Specialty Start Date End Date Jose De Jesus Harrington MD [address] [place] [address], [place] [address] PCP - General Internal Medicine 12/06/14 Pole Cutter Relationship Specialty Start Date End Date Jose De Jesus Harrington MD [address] [place] [address] PCP - General Internal Medicine 12/06/14 Team Status: Active Member Role Status Dates Dr. Jose De Jesus Harrington MD Family Provider Active Dr. Jose De Jesus Harrington MD Primary Care Provider Active Team Status: Inactive Member Role Status Dates Dr. Jose De Jesus Harrington MD Primary Care Provider Active Dr. Maxwell Simental , Emergency Provider Active Team Status: Inactive Member Role Status Dates Dr. Jose De Jesus Harrington MD Primary Care Provider Active Dr. Adrien Bonilla , DO Emergency Provider Active Pole Cutter Relationship Specialty Start Date End Date Jose De Jesus Harrington MD [address] [place] [address] [place] [address] PCP - General Internal Medicine 12/06/14 Pole Cutter Relationship Specialty Start Date End Date Jose De Jesus Harrington MD [address] [place] [address] [place] [address] PCP - General Internal Medicine 12/06/14 Pole Cutter Relationship Specialty Start Date End Date Jose De Jesus Harrington MD [address] [place] [address] [place] [address] PCP - General Internal Medicine 12/06/14 Pole Cutter Relationship Specialty Start Date End Date Jose De Jesus Harrington MD [address] [place] [address] [place] [address] PCP - General Internal Medicine 12/06/14 Pole Cutter Relationship Specialty Start Date End Date Jose De Jesus Harrington MD [address] [place] [address] [place] [address] PCP - General Internal Medicine 12/06/14 Pole Cutter Relationship Specialty Start Date End Date Jose De Jesus Harrington MD [address] [place] [address] [place] [address] PCP - General Internal Medicine 12/06/14 Pole Cutter Relationship Specialty Start Date End Date Jose De Jesus Harrington MD [address] [place] [address] PCP - General Internal Medicine 12/06/14 Pole Cutter Relationship Specialty Start Date End Date Jose De Jesus Harrington MD [address] [place] [address] PCP - General Internal Medicine 12/06/14 Pole Cutter Relationship Specialty Start Date End Date Jose De Jesus Harrington MD [address] [place] [address] PCP - General Internal Medicine 12/06/14 Pole Cutter Relationship Specialty Start Date End Date Jose De Jesus Harrington MD [address] [place] [address] PCP - General Internal Medicine 12/06/14 Pole Cutter Relationship Specialty Start Date End Date Jose De Jesus Harrington MD [address] [place] [address] PCP - General Internal Medicine 12/06/14 Pole Cutter Relationship Specialty Start Date End Date Jose De Jesus Harrington MD [address] [place] [address] PCP - General Internal Medicine 12/06/14 Pole Cutter Relationship Specialty Start Date End Date Jose De Jesus Harrington MD [address] [place] [address] PCP - General Internal Medicine 12/06/14 Team Status: Inactive Member Role Status Dates Dr. Jose De Jesus Harrington MD Primary Care Provider, Referr ing Provider Active Victoriano Aparicio TECHNOLOGY DIRECTOR, TECHNOLOGY DIRECTOR-C Attending Provider Active Team Status: Active Member [...] Alfredito Bowie MD Emergency Provider Active Dr. Ynoatan Portillo MD Admit Provider, Other Provide r Active Dr. Radha Arriaga MD Attending Provider Active Team Status: Inactive Member Role Status Dates Dr. Jose De Jesus Harrington MD Primary Care Provider Active Dr. Jennifer Black DO Attending Provider Act kaylyn Pole Cutter Relationship Specialty Start Date End Date Jose De Jesus Harrington MD [address] [place] [address] PCP - General Internal Medicine 12/06/14 Pole Cutter Relationship Specialty Start Date End Date Jose De Jesus Harrington MD [address] [place] [address] PCP - General Internal Medicine 12/06/14 Pole Cutter Relationship Specialty Start Date End Date Jose De Jesus Harrington MD [address] [place] [address] PCP - General Internal Medicine 12/06/14 Team Status: Inactive Member Role Status Dates Dr. Jose De Jesus Harrington MD Primary Care Provider Active Dr. Jennifer Black DO Attending Provider, Re ferring Provider Active Pole Cutter Relationship Specialty Start Date End Date Jose De Jesus Harrington MD [address] [place] [address] PCP - General Internal Medicine 12/06/14 Pole Cutter Relationship Specialty Start Date End Date Jose De Jesus Harrington MD [address] [place] [address] PCP - General Internal Medicine 12/06/14 Pole Cutter Relationship Specialty Start Date End Date Jose De Jesus Harrington MD [address] [place] [address] PCP - General Internal Medicine 12/06/14 Pole Cutter Relationship Specialty Start Date End Date Jose De Jesus Harrington MD [address] [place] [address] PCP - General Internal Medicine 12/06/14 Pole Cutter Relationship Specialty Start Date End Date Jose De Jesus Harrington MD [address] [place] [address] PCP - General Internal Medicine 12/06/14 Pole Cutter Relationship Specialty Start Date End Date Jose De Jesus Harrington MD [address] [place] [address] PCP - General Internal Medicine 12/06/14 Pole Cutter Relationship Specialty Start Date End Date Jose De Jesus Harrington MD [address] [place] [address] PCP - General Internal Medicine 12/06/14 Pole Cutter Relationship Specialty Start Date End Date Jose De Jesus Harrington MD [address] [place] [address] PCP - General Internal Medicine 12/06/14 Pole Cutter Relationship Specialty Start Date End Date Jose De Jesus Harrington MD [address] [place] [address] PCP - General Internal Medicine 12/06/14 Pole Cutter Relationship Specialty Start Date End Date Jose De Jesus Harrington MD [address] [place] [address] PCP - General Internal Medicine 12/06/14 Herbert Jay, HOPPER OPERATOR.BUSINESS INITIATIVES MANAGER [address] [place] [address] [facility] Internal [facility] 11/08/24 Olimpia Gomez, HOPPER OPERATOR.INSPECTOR AND MENDER [address] [place] [address] [facility] Internal Medicine 11/08/24 Pole Cutter Relationship Specialty Start Date End Date Jose De Jesus Harrington MD [address] [place] [address] PCP - General Internal Medicine 12/06/14 Herbert Jay, HOPPER OPERATOR.BUSINESS INITIATIVES MANAGER [address] [place] [address] [facility] Internal Medicine 11/08/24 Olimpia Gomez, HOPPER OPERATOR.INSPECTOR AND MENDER [address] [place] [address] [facility] Internal Medicine 11/08/24 Pole Cutter Relationship Specialty Start Date End Date Jose De Jesus Harrington MD [address] [place] [address] PCP - General Internal Medicine 12/06/14 Herbert Jay, HOPPER OPERATOR.BUSINESS INITIATIVES MANAGER [address] [place] [address] [facility] Internal Medicine 11/08/24 Olimpia Gomez HOPPER OPERATOR.INSPECTOR AND MENDER [address] [place] [address] [facility] Internal Medicine 11/08/24 Pole Cutter Relationship Specialty Start Date End Date Jose De Jesus Harrington MD [address] [place] [address] PCP - General Internal Medicine 12/06/14 Herbert Jay, HOPPER OPERATOR.BUSINESS INITIATIVES MANAGER [address] [place] [address] [facility] Internal Medicine 11/08/24 Olimpia Gomez HOPPER OPERATOR.INSPECTOR AND MENDER [address] [place] [address] [facility] Internal Medicine 11/08/24 Pole Cutter Relationship Specialty Start Date End Date Jose De Jesus Harrington MD [address] [facility] [place] [address] PCP - General Internal Medicine 12/06/14 Herbert Jay, HOPPER OPERATOR.BUSINESS INITIATIVES MANAGER [address] [facility] [place] [address] [facility] Internal Medicine 11/08/24 Olimpia Gomez HOPPER OPERATOR.INSPECTOR AND MENDER [address] [facility] [address] [facility] Internal Medicine 11/08/24 Pole Cutter Relationship Specialty Start Date End Date Jose De Jesus Harrington MD [address] [facility] [place] [address] PCP - General Internal Medicine 12/06/14 Herbert Jay, HOPPER OPERATOR.BUSINESS INITIATIVES MANAGER [address] [facility] [place] [address] [facility] Internal Medicine 11/08/24 Olimpia Gomez HOPPER OPERATOR.INSPECTOR AND MENDER [address] [facility] [place] [address] [facility] Internal Medicine 11/08/24 Pole Cutter Relationship Specialty Start Date End Date Jose De Jesus Harrington MD [address] [facility] [place] [address] PCP - General Internal Medicine 12/06/14 Herbert Jay, HOPPER OPERATOR.BUSINESS INITIATIVES MANAGER [address] [facility] [place] [address] [facility] Internal Medicine 11/08/24 Olimpia Gomez HOPPER OPERATOR.INSPECTOR AND MENDER [address] [place] [address] [facility] Internal Medicine 11/08/24 Team Status: Inactive Member Role Status [...] February 16, 2025 End: February 16, 2025 Pole Cutter Relationship Specialty Start Date End Date Jose De Jesus Harrington MD [address] [place], [place] [address] PCP - General Internal Medicine 12/06/14 Herbert Jay, HOPPER OPERATOR.BUSINESS INITIATIVES MANAGER [address] [place] [address] [facility] Internal Medicine 11/08/24 Olimpia Gomez, HOPPER OPERATOR.INSPECTOR AND MENDER [address] [place] [address] [facility] Internal Medicine 02/22/25 Pole Cutter Relationship Specialty Start Date End Date Jose De Jesus Harrington MD [address] [place], [place] [address] PCP - General Internal Medicine 12/06/14 Herbert Jay, HOPPER OPERATOR.BUSINESS INITIATIVES MANAGER [address] [place] [address] [facility] Internal Medicine 11/08/24 Olimpia Gomez HOPPER OPERATOR.INSPECTOR AND MENDER [address] [facility] [address] [facility] Internal Medicine 02/22/25 Pole Cutter Relationship Specialty Start Date End Date Jose De Jesus Harrington MD [address] [facility] [place] [address] PCP - General Internal Medicine 12/06/14 Herbert Jay, HOPPER OPERATOR.BUSINESS INITIATIVES MANAGER [address] [facility] [place] [address] [facility] Internal Medicine 11/08/24 Olimpia Gomez HOPPER OPERATOR.INSPECTOR AND MENDER [address] [facility] [place] [address] [facility] Internal Medicine 02/22/25 Pole Cutter Relationship Specialty Start Date End Date Jose De Jesus Harrington MD [address] [facility] [place] [address] PCP - General Internal Medicine 12/06/14 Olimpia Gomez, HOPPER OPERATOR.INSPECTOR AND MENDER [address] [facility] [place] [address] [facility] Internal Medicine 02/22/25 Herbert Jay, HOPPER OPERATOR.BUSINESS INITIATIVES MANAGER [address] [facility] [place] [address] [facility] Internal Medicine 04/20/25 Pole Cutter Relationship Specialty Start Date End Date Jose De Jesus Harrington MD [address] [facility] [place] [address] PCP - General Internal Medicine 12/06/14 Olimpia Gomez, HOPPER OPERATOR.INSPECTOR AND MENDER [address] [place] [address] [facility] Internal Medicine 02/22/25 Herbert Jay, HOPPER OPERATOR.BUSINESS INITIATIVES MANAGER [address] [place], [place] [address] [facility] Internal Medicine 04/20/25 Pole Cutter Relationship Specialty Start Date End Date Jose De Jesus Harrington MD [address] [place] [address] PCP - General Internal Medicine 12/06/14 Olimpia Gomez HOPPER OPERATOR.INSPECTOR AND MENDER [address] [place] [address] [facility] Internal Medicine 02/22/25 Herbert Jay, HOPPER OPERATOR.BUSINESS INITIATIVES MANAGER [address] [place], [place] [address] [facility] Internal Medicine 04/20/25 Team Status: Active [...] August 08, 2025 End: August 08, 2025 Team Status: Active Member Role/Relationship Status Dates Dr. Jose De Jesus Harrington MD Primary care physician Active Team Status: Inactive Member Role/Relationship Status Dates Dr. Jose De Jesus Harrington MD Primary care physician Active Start: May 31, 2025 Dr. Juana Peters MD Attending physician Active Start: May 31, 2025 Team Status: Inactive Member Role/Relationship Status Dates Dr. Jose De Jesus Harrington MD Primary care physician Active Start: July 12, 2025 End: July 12, 2025 Dr. Jose De Jesus Harrington MD Referring Provider Active Start: July 12, 2025 End: July 12, 2025 Dr. Juana Peters MD Attending physician Active Start: July 12, 2025 End: July 12, 2025 Team Status: Inactive Member Role/Relationship Status Dates Dr. Jose De Jesus Harrington MD Primary care physician Active Start: July 26, 2025 End: July 26, 2025 Dr. Jose De Jesus Harrington MD Referring Provider Active Start: July 26, 2025 End: July 26, 2025 Dr. Juana Peters MD Attending physician Active Start: July 26, 2025 End: July 26, 2025 Team Status: Inactive Member Role/Relationship Status Dates Dr. Jose De Jesus Harrington MD Primary care physician Active Start: July 27, 2025 End: July 27, 2025 Dr. Augustin Moreira MD Attending physician Active Start: July 27, 2025 End: July 27, 2025 Dr. Augustin Moreira MD Referring Provider Active Start: July 27, 2025 End: July 27, 2025 Team Status: Inactive Member Role/Relationship Status Dates Dr. Jose De Jesus Harrington MD Primary care physician Active Start: August 04, 2025 End: August 04, 2025 Dr. Jose De Jesus Harrington MD Referring Provider Active Start: August 04, 2025 End: August 04, 2025 Dr. Augustin Moreira MD Attending physician Active Start: August 04, 2025 End: August 04, 2025 Team Status: Inactive Member Role/Relationship Status Dates Dr. Jose De Jesus Harrington MD Primary care physician Active Start: August 08, 2025 End: August 08, 2025 Dr. Jose De Jesus Harrington MD Referring Provider Active Start: August 08, 2025 End: August 08, 2025 Dr. Juana Peters MD Attending physician Active Start: August 08, 2025 End: August 08, 2025 Team Status: Inactive Member Role/Relationship Status Dates Dr. Jose De Jesus Harrington MD Primary care physician Active Start: September 05, 2025 End: September 05, 2025 Dr. Eric Mock , DO Emergency Departhuron [facility] Physician Active Start: September 05, 2025 End: September 05, 2025 Goals (unrecognized section and content) Goals [...] BE BASED ON THE PRIMARY CLINICAL RECORDS. [employer] provides no warranty or guarantee of the accuracy or completeness of information in this document.
--- NOTE | 2025-10-04 12:51 | STRESSREP_ITS ---
Stress Test Report Date: 10/04/2025 Procedure: Pharmacologic stress nuclear imaging study Indications: Coronary artery disease Consent: Per the patient Procedure: The patient underwent pharmacologic (Regadenoson 0.4mg ) evaluation with a peak heart rate of 78 beats per minute (54%predicted maximal heart rate) and a peak blood pressure of 140/72 mmHg. The baseline ECG demonstrated sinus rhythm. Right bundle branch block with diffuse ST-T wave changes. The peak pharmacologic ECG was nondiagnostic secondary to baseline abnormalities. There were no cardiac dysrhythmias pretest, during pharmacologic infusion, or recovery. There was no complaint of chest discomfort during pharmacologic infusion or recovery. The patient was injected with 14.7 millicuries of technetium 99m Cardiolite and subsequently rest SPECT Cardiolite nuclear imaging was obtained in the horizontal long, vertical long, and short axis views. The patient underwent pharmacologic (Regadenoson) evaluation. The patient was injected with 44.6 millicuries of technetium 99m Cardiolite and subsequently stress SPECT Cardiolite nuclear imaging was obtained in the horizontal long, vertical long, and short axis views. A gated Cardiolite study at peak stress was obtained. The examination was stopped secondary to completion of protocol. Rest and stress SPECT Cardiolite nuclear imaging status post realignment, normalization, and attenuation correction demonstrate no fixed or reversible perfusion defects. There is end systolic thickening and brightening. The gated Cardiolite study demonstrates myocardial thickening and inward wall motion. The reported LVEF is 74%. Impression: 1. Pharmacologic (Regadenoson) evaluation 2. Peak pharmacologic ECG with no diagnostic changes. 3. There were no cardiac dysrhythmias pretest, during pharmacologic infusion, or recovery. 5. Rest and stress SPECT Cardiolite nuclear imaging demonstrate relative uniform tracer uptake and myocardial perfusion appearing within normal limits. 6. The gated Cardiolite study reports an LVEF of 74%. This note was generated with [employer] software. It may contain incorrect words, spelling, and punctuation that were not noted in checking the note before signing.
== END | disposition home or self-care (01) ==
LOC: CVS 06:52
PROVIDERS: PCP Internal Medicine; Referring Provider Internal Medicine Cardiovascular Disease; Visit Provider Internal Medicine Cardiovascular Disease
DX: I25.10 Atherosclerotic heart disease of native coronary artery without angina pectoris (principal)
CPT/HCPCS: 78452; 93017; 93306; A9500; A4216; J2785